=== PATIENT | female | born 1930 | race Asian ===

== ENCOUNTER 2017-07-01 13:04 | Inpatient (IN) | payer MEDICARE, OTHER ==
--- NOTE | 2017-07-01 13:59 | ED Physician Chart ---
ED Chief Complaint/HPI - Patient Information Date Seen:: 07/01/17 Time Seen:: 13:52 Chief Complaint:: Failure to thrive History of Present Illness:: 87 yo female with history of stroke and left hemiplagia, was brought from [facility] to ER for evaluation of failure to thrive and generalized weakness for several days. There was no trauma, fever, or vomiting. Allergies:: Allergies Allergy/AdvReac Type Severity Reaction Status Date / Time Sulfa (Sulfonamide Allergy Verified 07/01/17 13:27 Antibiotics) Vitals:: Vital Signs - 8 hr 07/01/17 13:27 Temp 98.7 F HR 89 RR 22 BP 116/68 O2 Sat % 97 ED Review of Systems - Review of Systems General/Constitutional: No fever, Weakness Skin: No bruising Head: No headache Eyes: No pain ENT: No nasal drainage Neck: No neck pain Cardio Vascular: No chest pain Pulmonary: SOB GI: No nausea, No vomiting Musculoskeletal: Back pain Neurological: Weakness ED Past Medical History - Past Medical History Past Medical History: CVA/TIA, Dyslipidemia, Arthritis, Other (anemia, lung ca, DVT, PE, stroke with left hemiplagia, dysphagia, low back pain) Social History: Non Smoker, No Alcohol, No Drug Use Psychiatricy History: Other (anxiety, impulse disorder) Family Medical History - Family Member Mother History Unknown: Yes ED Physical Exam - Physical Examination Other Gen/Cons comments:: drowsy, awaken to voice Head: Atraumatic Eyes: PERRL Skin: No ecchymosis ENMT: Nasal exam nl Neck: No nuchal rigidity Other Respiratory comments:: mild rhonchi Cardio Vascular: RRR, No murmur, gallop, rubs, NL S1 S2 GI: No tenderness/rebounding/guarding Other Extremities comments:: RUE 5/5, RLE 5/5, LUE 1/5, LLE 2/5 Other Neuro/Psych comments:: Follow commands ED Labs/Radiology/EKG Results - Radiology Results Results: CXR: No acute abnormality CT head: Right parietal encephalomalacia ED Assessment - Assessment General Assessment: UTI Leukocytosis Hypokalemia Left hemiplagia Assessment/Comments:: CBC, CMP, UA CXR, EKG CT head Levaquin IV NS 1L IV bolus KCL 40mEq po Admit to med surg ED Septic Shock - . Is Septic Shock (SBP<90, OR Lactate>4 mmol\L) present?: No - <6hrs of presentation: Vital Signs: Vital Signs - 8 hr 07/01/ 13:27 Temp 98.7 F HR 89 RR 22 BP 116/68 O2 Sat % 97 ED Reassessment (Disposition) - Reassessment Reassessment Condition:: Improved - Patient Disposition Discharge/Transfer:: Acute Care w/in this hosp Admitting Medical Physician:: Familia Landry ED Discharge Plan - Patient Disposition Admit/Discharge/Transfer: Acute Care w/in this hosp
[2017-07-01 14:18] LABS: MANUAL DIFF REQUIRED? YES; MEAN PLATELET VOLUME 7.1 fl
[2017-07-01 14:36] LABS: HEMATOCRIT 30.7 % (41.0-60); HEMOGLOBIN 10.1 gm/dL (12-16); MEAN CELL VOLUME 88.7 fl (81-100); MEAN CORPUSCULAR HEMOGLOBIN 29.3 pg (27.0-31.0); PLATELET COUNT 367 Th/cmm (150-400); RED BLOOD COUNT 3.46 Mil/cmm (3.80-5.20); RED CELL DISTRIBUTION WIDTH 15.7 % (11.5-20.0)
[2017-07-01 14:42] LABS: ALB/GLOB RATIO 0.9 (1.0-1.8); ALBUMIN 2.9 gm/dL (3.7-5.3); ALKALINE PHOSPHATASE 82 U/L (34-104); ANION GAP 11.4 (7.0-16.0); BILIRUBIN,TOTAL 0.4 mg/dL (0.3-1.0); BUN - UREA NITROGEN 19 mg/dL (7-25); CARBON DIOXIDE 25.2 mEq/L (21.0-31.0); CHLORIDE 109 mEq/L (98-107); CREATININE - SERUM 0.7 mg/dL (0.6-1.2); GLUCOSE 104 mg/dL (70-105); SGOT 16 U/L (13-39); SGPT/ALT 6 U/L (7-52); SODIUM SERUM 143 mEq/L (136-145); TOTAL PROTEIN,SERUM 6.2 gm/dL (6.0-8.3)
[2017-07-01 14:43] LABS: WHITE BLOOD COUNT 23.8 Th/cmm (4.8-10.8)
[2017-07-01 14:51] LABS: POTASSIUM SERUM 2.6 mEq/L (3.5-5.1)
[2017-07-01] MEDS ORDERED: Levofloxacin 500mg/100mL 500 MG/100 ML BAG IV ONE ×2 (15:02→15:18)
[2017-07-01] MEDS ORDERED: Sodium Chloride 0.9% 1,000 ML IV ONE (15:02)
[2017-07-01 15:17] LABS: BAND NEUTROPHILE 2 % (0-10); BASOPHIL 0 % (0-3); EOSINOPHIL 2 % (0-5); LYMPHOCYTE 20 % (20-50); MONOCYTE 5 % (2-10); NEUTROPHILS 71 % (40-80); TOTAL CELLS COUNTED 100
[2017-07-01 15:40] LABS: URINE MICROSCOPIC INDICATED? YES; URINE SOURCE RANDOM
[2017-07-01 16:46] LABS: URINE BILIRUBIN SMALL (NEGATIVE); URINE BLOOD SMALL (NEGATIVE); URINE GLUCOSE (UA) NEGATIVE (NEGATIVE); URINE KETONE 15 mg/dL (NEGATIVE); URINE LEUKOCYTE ESTERASE LARGE (NEGATIVE); URINE NITRATE POSITIVE (NEGATIVE); URINE PH 5.5 (4.6 - 8.0); URINE PROTEIN TRACE mg/dL (NEGATIVE); URINE UROBILINOGEN 0.2 E.U./dL (0.2 - 1.0)
[2017-07-01 16:50] LABS: URINE CLARITY CLOUDY (CLEAR); URINE COLOR YELLOW
[2017-07-01 16:53] LABS: URINE BACTERIA MANY /hpf (NONE SEEN); URINE EPITHELIAL CELLS FEW /lpf (FEW); URINE WBC >100 /hpf (0-5)
[2017-07-01] MEDS ORDERED: Potassium Chloride 20 mEq ER Tab PO ONE ×3 (17:02→22:30)
[2017-07-01] MEDS ORDERED: Potassium Chloride 20 mEq ER Tab PO PRN (22:08)
[2017-07-01] MEDS ORDERED: D5-0.9%NS 1,000 ML IV SCH (22:10)
[2017-07-01] MEDS ORDERED: Albuterol/Ipratropium Neb 3 ML AERS HHN PRN (22:14)
[2017-07-01] MEDS ORDERED: Morphine Sulfate 4 mg/mL 1mL Syr IVP PRN (22:20)
[2017-07-02] MEDS: Albuterol/Ipratropium Neb 3 ML AERS HHN SCH ×4 (00:26→19:14)
[2017-07-02] MEDS ORDERED: Piperacillin Sodium/Tazobact 2.25 gm Vial IV ONE ×2 (01:11→05:16)
[2017-07-02] MEDS: D5-0.9%NS 1,000 ML IV SCH ×2 (01:32→13:49)
[2017-07-02 04:03] VITALS: BP 103/62
[2017-07-02] MEDS ORDERED: Pneumococcal Vaccine 0.5 mL Vial IM ONE (04:17)
--- NOTE | 2017-07-02 05:03 | History and Physical ---
History of Present Illness - HPI Chief Complaint: Dehydration and poor appetite HPI: An 87-year-old female with past medical history of stage IV lung cancer and chronic respiratory failure present from mobile with the complaint of poor appetite and dehydration. I have seen the patient last couple of months at [place]. The patient was being followed at [facility] was previously undergoing chemotherapy for stage IV lung cancer. However, the patient gradually became weaker and continued to lose weight and the oncologist stated that the patient was unable to withstand therapy. At that point in time the patient was considered hospice appropriate in the [facility]. The patient's son, Phillip, refused to place his mother on hospice at that time and admitted to ignoring their telephone calls. I spoke to the son on several occasions about his mother's poor prognosis and her inability to withstand continue treatment for stage IV lung cancer, however, the patient's son would like to explore all continued options for treatment. The patient is to the point in time where she is not tolerating oral intake and she's become very weakened and is having difficulty speaking. I examined the [facility] early yesterday and at that time she was still able to make her own decisions and asked for hospice care. The patient's mentation continued to wax and wane during the day and the patient became altered and was unable to make her own decisions at that time. I explained to the patient's son , Phillip, but his mother is having difficulty eating and drinking, as a direct result of this she'll become very dehydrated and she will not get the nutrients she needs to continue to fight her cancer. At this point in time the patient's son does not want a G-tube placed, but he would like to speak to an oncologist and college and career counselor about continued treatment. Vital Signs: Last Vital Signs Temp 97.8 F 07/01/17 23:58 Pulse 83 07/02/17 00:26 Resp 18 07/02/17 00:26 BP 103/62 07/02/17 04:02 Pulse Ox 97 07/02/17 00:26 Past Medical History Cardiovascular: Report: CAD, HTN Pulmonary: Report: COPD, Other (Stage IV lung cancer) [employer]: Report: Peripheral neuropathy GI: Report: Constipation, GERD Psych: Report: Anxiety Musculoskeletal: Report: Low Back Pain Family Medical History - Family Member Mother History Unknown: Yes Social History Smoke: Quit Alcohol: None Drugs: None Lives: Alf Domestic Violence: Negative - Medications Home Medications: Home Medication Medication Instructions Recorded Type Acetaminophen [Tylenol] 325 mg PO Q6HR PRN 07/01/17 History Acetaminophen [Tylenol] 650 mg PO Q6HR PRN 07/01/17 History Albuterol/Ipratropium Neb [Duoneb 3 ml HHN Q6HR PRN 07/01/17 History Neb] Amino Acids/Protein Hydrolys 30 ml PO DAILY 07/01/17 History [Pro-Stat Sugar Free 887 ml] Ascorbate Calcium [Vitamin C] 500 mg PO DAILY 07/01/17 History Bisacodyl [Dulcolax 10 Mg Supp] 10 mg RC HS PRN 07/01/17 History Cyproheptadine HCl 4 mg PO BID 07/01/17 History Dextrose 5 % and 0.9 % NaCl 1,000 ml IV DAILY 07/01/17 History [Dextrose 5%-0.9% NaCl IV Soln] Ferrous Sulfate [Iron] 325 mg PO BID 07/01/17 History Fleet Enema [Fleet Enema] 118 ml RC DAILY PRN 07/01/17 History Fluticasone/Salmeterol [Advair 1 dsk IH BID 07/01/17 History Diskus 250/50] Folic Acid [Folate*] 1 mg PO DAILY 07/01/17 History Glutathione [Glutathione-l] 500 mg PO DAILY 07/01/17 History Hydrocodone/APAP 5mg/325mg [[place] 1 tab PO Q6H PRN 07/01/17 History 5mg/325mg] Lactulose 20 gm PO QID PRN 07/01/17 History Lidocaine 5% Patch [Lidoderm 5% 1 patch TP DAILY 07/01/17 History Patch] Lisinopril 20 mg PO DAILY 07/01/17 History Lorazepam [Ativan] 0.5 mg PO Q6H PRN 07/01/17 History Magnesium Hydroxide [Milk of 30 ml PO PRN PRN 07/01/17 History Magnesia] Multivitamin [Multiple Vitamins] 1 tab PO DAILY 07/01/17 History Ondansetron [Ondansetron Odt] 4 mg PO Q8H PRN 07/01/17 History Prochlorperazine Maleate 10 mg PO Q6H PRN 07/01/17 History [Compazine] Rivaroxaban [Xarelto] 10 mg PO BID 07/01/17 History - Allergies Allergies/Adverse Reactions: Allergies Allergy/AdvReac Type Severity Reaction Status Date / Time Sulfa (Sulfonamide Allergy Verified 07/01/17 13:27 Antibiotics) Review of Systems - Review of Systems Constitutional: Report: Weakness, Malaise, Other (decreased appetite) Eyes: Report: No Significant ENT: Report: No Significant Respiratory: Report: Shortness of Breath Cardiovascular: Report: Orthopnea Gastrointestinal: Report: Other (decreased appetite) Genitourinary: Report: No Significant Musculoskeletal: Report: Other (muscle weakness) Neurological: Report: Weakness Physical Exam - Physical Exam HEENT: Report: Ears Nose Throat within normal limits, Other (cachectic) Neck: Report: Within normal limits Cardiovascular Systems: Report: +s1/s2 noted, Regular, Rate and Rhythm Respiratory: Report: Other (decreased breath sounds bilaterally, decreased air movement) Abdomen: Report: Non-tender to palpation Back: Report: Other (bilateral lower extremity pain) Extremities: Report: No pedal edema was noted on inspection Skin: Report: Warm, Dry Neuro/Psych: Report: Other (AAO 2) - Assessment Assessment: Current Active Problems Problem Status Onset WEAKESS AND POOR ORAL INTAKE Acute Metabolic encephalopathy secondary to urinary tract infection Stage IV lung cancer Chronic respiratory failure Hypertension Generalized anxiety disorder Chronic pain syndrome Muscle weakness Unsteady gait Anemia of chronic illness - Plan Plan: Admit to telemetry. IV fluids and IV antibiotics. Pulmonology and oncology have been consulted. Abdominal oxygen. Bronchodilators. Pain control. Follow -up cultures. Bedrest.
[2017-07-02 05:49] LABS: % BASOPHILS 0.4 % (0.0-2.0); % EOSINOPHILS 2.9 % (0.0-5.0); % LYMPHOCYTES 12.3 % (20.0-50.0); % MONOCYTES 6.6 % (2.0-10.0); % NEUTROPHILS 77.8 % (40.0-80.0); EOSINOPHILE ABSOLUTE 0.4 Th/cmm (0.1-0.4); HEMATOCRIT 29.8 % (41.0-60); HEMOGLOBIN 9.7 gm/dL (12-16); LYMPHOCYTE ABSOLUTE 1.5 Th/cmm (1.5-3.0); MEAN CELL VOLUME 88.7 fl (81-100); MEAN CORPUSCULAR HGB CONC 32.7 pg (28.0-36.0); MEAN PLATELET VOLUME 7.1 fl; MONOCYTE ABSOLUTE 0.8 Th/cmm (0.3-1.0); NEUTROPHILE ABSOLUTE 9.6 Th/cmm (1.8-8.0); PLATELET COUNT 338 Th/cmm (150-400); RED BLOOD COUNT 3.36 Mil/cmm (3.80-5.20); RED CELL DISTRIBUTION WIDTH 16.1 % (11.5-20.0)
[2017-07-02 05:58] LABS: ANION GAP 9.2 (7.0-16.0); BUN - UREA NITROGEN 14 mg/dL (7-25); CALCIUM SERUM 8.4 mg/dL (8.6-10.3); CARBON DIOXIDE 26.6 mEq/L (21.0-31.0); CHLORIDE 113 mEq/L (98-107); CREATININE - SERUM 0.6 mg/dL (0.6-1.2); GLUCOSE 135 mg/dL (70-105); MAGNESIUM 1.7 mg/dL (1.9-2.7); PHOSPHOROUS 1.5 mg/dL (2.5-5.0); SODIUM SERUM 146 mEq/L (136-145)
[2017-07-02 06:08] LABS: POTASSIUM SERUM 2.8 mEq/L (3.5-5.1); WHITE BLOOD COUNT 12.3 Th/cmm (4.8-10.8)
[2017-07-02] MEDS: Potassium Chloride 20 mEq ER Tab PO SCH ×2 (07:01→13:41)
[2017-07-02] MEDS: Multivitamin Tab PO SCH (08:21)
[2017-07-02] MEDS: Ferrous Sulfate 325 MG TAB PO SCH ×2 (08:21→16:15)
[2017-07-02] MEDS ORDERED: SALMETEROL IH SCH (09:00)
[2017-07-02] MEDS ORDERED: Non-Formulary Item 1 EA (Amino Acids/Protein Hydrolys [Pro-Stat Sugar Free Liquid] 30 ML) PO SCH (09:00)
[2017-07-02] MEDS ORDERED: FLUTICASONE IH SCH (09:00)
[2017-07-02] MEDS ORDERED: GLUTATHIONE 500 MG PO SCH (09:00)
--- NOTE | 2017-07-02 09:01 | Diagnostic Imaging Report ---
CT scan of the brain without intravenous contrast HISTORY: Stroke, CVA Total DLP equals 558 CTDI equals 33.2 Axial sections were obtained from the base of the skull the vertex. There is marked enlargement of ventricular system along with marked enlargement of cerebral sulci and subarachnoid cisterns reflecting severe atrophy. There is extensive hypodensity throughout the supratentorial periventricular white matter regions. No mass effect. The findings may be associated with chronic small vessel ischemic disease. Somewhat more focal hypodensity and encephalomalacia with volume loss noted within the right parietal region. Changes may be related to an old infarct. No acute intracerebral hemorrhage. Again, no mass effect or shift of midline structures. No extra-axial masses or abnormal fluid collections. IMPRESSION: 1. No definite acute abnormalities 2. Severe cerebral atrophy 3. Extensive chronic white matter changes that may be associated with chronic small vessel ischemic disease 4. Somewhat more focal changes and encephalomalacia within the right parietal region that may be associated with an old infarct.
--- NOTE | 2017-07-02 09:03 | Diagnostic Imaging Report ---
Portable chest x-ray HISTORY: Shortness of breath The overall heart size is normal. Atherosclerotic calcination seen in the tortuous thoracic aorta. No acute focal pulmonary parenchymal processes. IMPRESSION: 1. No acute abnormalities 2. At the site of vascular changes 3. Evidence of calcified mediastinal lymph node with small calcified nodules in the right lower lobe of the lung consistent with old granulomatous disease.
[2017-07-02] MEDS: Cyproheptadine 4 mg Tab PO SCH ×2 (09:11→16:15)
--- NOTE | 2017-07-02 11:59 | Consultation ---
DATE OF CONSULTATION: 07/02/2017 REFERRING PHYSICIAN: Dr. Landry. REASON FOR CONSULTATION: Metastatic lung cancer. HISTORY OF PRESENT ILLNESS: The patient is an 87-year-old female who is known to have history of metastatic lung cancer, who was treated by another oncologist and now she is comfort care only. The patient was placed on hospice and then taken off of hospice by the family wish. She has failure to thrive and general weakness. Therefore, admitted to the hospital. MEDICATIONS: Reviewed including folic acid, ferrous sulfate, laxatives, Tylenol and albuterol. FAMILY HISTORY: Irrelevant. SOCIAL HISTORY: Former smoker. PAST MEDICAL HISTORY: COPD. PHYSICAL EXAMINATION: GENERAL: The patient is cachectic, frail, afebrile. VITAL SIGNS: Blood pressure is stable. HEENT: Atraumatic. NECK: No lymphadenopathy. CHEST: Poor inspiratory effort. ABDOMEN: Soft. No masses or organomegaly. EXTREMITIES: Wasted muscles. No edema. LAB WORK: Potassium 4.8. White count 12.3, hemoglobin 9.7, platelets 338. Chest x-ray was reviewed showing mediastinal lymphadenopathy and right lower lobe lung nodules. CT scan of the head, no acute changes. ASSESSMENT: 1. Advanced lung cancer, status post chemotherapy. 2. Poor functional status. The patient is not a candidate for any cancer therapy at this time, I discussed her current condition with the son, on the phone. I informed them that the goal of treatment is comfort care and maintaining dignity and he agreed. 3. Electrolyte abnormalities with low potassium and magnesium being corrected. I agree with current management with morphine as needed. I will obtain iron studies to decide whether the patient will need to continue iron. I also will start the patient on Lovenox prophylaxis. She is having a high risk for thrombosis because of the age and metastatic cancer and bedridden status. Thank you, Dr. Landry for the opportunity to participate in the care of this interesting case for you. JOB# [id number]
[2017-07-02] MEDS: Budesonide 0.5 Mg/2 mL Ud HHN SCH (19:14)
[2017-07-02 19:36] LABS: ANION GAP 9.8 (7.0-16.0); BUN - UREA NITROGEN 11 mg/dL (7-25); CALCIUM SERUM 8.5 mg/dL (8.6-10.3); CARBON DIOXIDE 24.4 mEq/L (21.0-31.0); CHLORIDE 115 mEq/L (98-107); CREATININE - SERUM 0.6 mg/dL (0.6-1.2); GLUCOSE 176 mg/dL (70-105); POTASSIUM SERUM 3.2 mEq/L (3.5-5.1); SODIUM SERUM 146 mEq/L (136-145)
[2017-07-02] MEDS ORDERED: Potassium Chloride 20 mEq ER Tab PO ONE (21:29)
[2017-07-03] MEDS: Morphine Sulfate 4 mg/mL 1mL Syr IVP PRN ×2 (01:36→20:18)
[2017-07-03] MEDS: Albuterol/Ipratropium Neb 3 ML AERS HHN SCH ×4 (01:42→18:29)
[2017-07-03] MEDS: D5-0.9%NS 1,000 ML IV SCH (05:56)
[2017-07-03 06:24] LABS: % BASOPHILS 0.1 % (0.0-2.0); % EOSINOPHILS 1.7 % (0.0-5.0); % LYMPHOCYTES 12.3 % (20.0-50.0); % MONOCYTES 7.6 % (2.0-10.0); % NEUTROPHILS 78.3 % (40.0-80.0); EOSINOPHILE ABSOLUTE 0.2 Th/cmm (0.1-0.4); HEMATOCRIT 27.5 % (41.0-60); HEMOGLOBIN 8.9 gm/dL (12-16); LYMPHOCYTE ABSOLUTE 1.2 Th/cmm (1.5-3.0); MEAN CELL VOLUME 88.6 fl (81-100); MEAN CORPUSCULAR HEMOGLOBIN 28.8 pg (27.0-31.0); MEAN CORPUSCULAR HGB CONC 32.5 pg (28.0-36.0); MEAN PLATELET VOLUME 7.1 fl; MONOCYTE ABSOLUTE 0.8 Th/cmm (0.3-1.0); NEUTROPHILE ABSOLUTE 7.7 Th/cmm (1.8-8.0); PLATELET COUNT 339 Th/cmm (150-400); WHITE BLOOD COUNT 9.9 Th/cmm (4.8-10.8)
[2017-07-03 06:45] LABS: BUN - UREA NITROGEN 8 mg/dL (7-25); CALCIUM SERUM 8.7 mg/dL (8.6-10.3); CARBON DIOXIDE 24.9 mEq/L (21.0-31.0); CHLORIDE 119 mEq/L (98-107); CREATININE - SERUM 0.6 mg/dL (0.6-1.2); GLUCOSE 133 mg/dL (70-105); POTASSIUM SERUM 3.9 mEq/L (3.5-5.1); SODIUM SERUM 149 mEq/L (136-145)
--- NOTE | 2017-07-03 06:59 | Consultation ---
DATE OF CONSULTATION: 07/02/2017 REFERRING PHYSICIAN: Dr. Landry. Thank you very much for this consultation. HISTORY OF PRESENT ILLNESS: This is an 87-year-old female with history of lung cancer who was admitted with some cough, congestion, and shortness of breath. The patient was unable to give any much history. She says she is a smoker since age 16 and quit years ago. She cannot quantify the amount of years of smoking. The patient is in halfway, having poor appetite and the patient has been followed at [facility] for had a chemo, status post chemo to stage IV lung cancer. The patient apparently was deemed not strong enough to tolerate any more treatment. Apparently hospice option was given to the family, but they declined at this time. The patient states she is feeling a little bit better, but not eating as much. PAST MEDICAL HISTORY: As above. SOCIAL HISTORY: As above. PHYSICAL EXAMINATION: GENERAL: Awake, alert, not in acute distress. VITAL SIGNS: Temperature 98.0, pulse 82, respirations 19, blood pressure 105/57, saturation 100% on 2 liters oxygen. HEENT: Atraumatic, normocephalic. Pupils are equal to light and accommodation. Ears, nose and throat normal. NECK: Supple. No JVD. CHEST: There are a few rhonchi. No wheezing. HEART: Regular rate and rhythm. No murmurs. ABDOMEN: Soft. EXTREMITIES: No edema. IMAGING DATA: The chest x-ray showed some fullness in the left upper, left hilar area, otherwise no obvious infiltrate. LABORATORY DATA: WBC is 12.3, hemoglobin 9.7, hematocrit 29.8, platelets is 338. Sodium 146, potassium 2.8, BUN is 40, creatinine 0.6. IMPRESSION: 1. This is an 87-year-old female with acute bronchitis. 2. Chronic obstructive pulmonary disease exacerbation. 3. Urinary tract infection. 4. Lung cancer, advanced. PLAN: Supportive care with nebulizer treatment, IV antibiotics and IV hydration. Add Pulmicort nebulizer and nutritional support and comes to the cancer, looks like end-stage, probably considered to be DNR and if she is not eating much, OG-tube is desired, at one point, need to consider hospice care. We will follow patient with you. JOB# [id number]
[2017-07-03] MEDS: Budesonide 0.5 Mg/2 mL Ud HHN SCH ×2 (07:07→18:30)
[2017-07-03] MEDS: Ferrous Sulfate 325 MG TAB PO SCH ×2 (08:16→16:31)
[2017-07-03] MEDS: Multivitamin Tab PO SCH (08:16)
[2017-07-03] MEDS: Cyproheptadine 4 mg Tab PO SCH ×2 (08:17→16:31)
[2017-07-03] MEDS ORDERED: Probiotic Screen MC PRN (08:45)
[2017-07-03] MEDS: Lactobacillus Rhamnosus GG 15 Billion CFU CAP.SPRINK PO SCH (08:59)
--- NOTE | 2017-07-03 10:01 | General Progress Note ---
Subjective - Review of Systems Service Date: 07/03/17 Events since last encounter: The patient is on antibiotics for asp pna. Continue respiratory support for resp failure. Oncology evaluated the patient and stated that she is not a candidate for treatment of the stage 4 lung ca. Comfort care is preferred, however family has refused hospice in the past Subjective: The patient is resting comfortably in bed. Does not appear to be in any acute pain or distress. Denies chest pain, coughin, abd pain, dysuria or falls Objective - Results Result Diagrams: 07/03/17 05:48 07/03/17 05:48 Recent Labs: Laboratory Last Values WBC 9.9 Th/cmm (4.8-10.8) 07/03/17 05:48 RBC 3.10 Mil/cmm (3.80-5.20) L 07/03/17 05:48 Hgb 8.9 gm/dL (12-16) L 07/03/17 05:48 Hct 27.5 % (41.0-60) L 07/03/17 05:48 MCV 88.6 fl (81-100) 07/03/17 05:48 MCH 28.8 pg (27.0-31.0) 07/03/17 05:48 MCHC Differential 32.5 pg (28.0-36.0) 07/03/17 05:48 RDW 16.0 % (11.5-20.0) 07/03/17 05:48 Plt Count 339 Th/cmm (150-400) 07/03/17 05:48 MPV 7.1 fl 07/03/17 05:48 Neutrophils % 78.3 % (40.0-80.0) 07/03/17 05:48 Band Neutrophils % 2 % (0-10) 07/01/17 14:10 Lymphocytes % 12.3 % (20.0-50.0) L 07/03/17 05:48 Monocytes % 7.6 % (2.0-10.0) 07/03/17 05:48 Eosinophils % 1.7 % (0.0-5.0) 07/03/17 05:48 Basophils % 0.1 % (0.0-2.0) 07/03/17 05:48 Neutrophils (Manual) 71 % (40-80) 07/01/17 14:10 Lymphocytes 20 % (20-50) 07/01/17 14:10 Monocytes 5 % (2-10) 07/01/17 14:10 Eosinophils 2 % (0-5) 07/01/17 14:10 Basophils 0 % (0-3) 07/01/17 14:10 Sodium 149 mEq/L (136-145) H 07/03/17 05:48 Potassium 3.9 mEq/L (3.5-5.1) 07/03/17 05:48 Chloride 119 mEq/L (98-107) H 07/03/17 05:48 Carbon Dioxide 24.9 mEq/L (21.0-31.0) 07/03/17 05:48 Anion Gap 9.0 (7.0-16.0) 07/03/17 05:48 BUN 8 mg/dL (7-25) 07/03/17 05:48 Creatinine 0.6 mg/dL (0.6-1.2) 07/03/17 05:48 Est GFR ( Amer) TNP 07/03/17 05:48 Est GFR (Non-Af Amer) TNP 07/03/17 05:48 BUN/Creatinine Ratio 13.3 07/03/17 05:48 Glucose 133 mg/dL (70-105) H 07/03/17 05:48 Whole Bld Lactic Acid 1.88 mmol/L (0.60-1.99) 07/01/17 17:00 Calcium 8.7 mg/dL (8.6-10.3) 07/03/17 05:48 Phosphorus 1.5 mg/dL (2.5-5.0) L 07/02/17 05:20 Magnesium 1.7 mg/dL (1.9-2.7) L 07/02/17 05:20 Total Bilirubin 0.4 mg/dL (0.3-1.0) 07/01/17 14:10 AST 16 U/L (13-39) 07/01/17 14:10 ALT 6 U/L (7-52) L 07/01/17 14:10 Alkaline Phosphatase 82 U/L (34-104) 07/01/17 14:10 Troponin I 0.13 ng/mL (0.01-0.05) H* D 07/02/17 13:15 B-Natriuretic Peptide 215.0 pg/mL (5.0-100.0) H 07/01/17 14:10 Total Protein 6.2 gm/dL (6.0-8.3) 07/01/17 14:10 Albumin 2.9 gm/dL (3.7-5.3) L 07/01/17 14:10 Globulin 3.3 gm/dL 07/01/17 14:10 Albumin/Globulin Ratio 0.9 (1.0-1.8) L 07/01/17 14:10 TSH 1.40 uIU/ml (0.34-5.60) 07/01/17 14:10 Urine Source RANDOM 07/01/17 15:15 Urine Color YELLOW 07/01/17 15:15 Urine Clarity CLOUDY (CLEAR) H 07/01/17 15:15 Urine pH 5.5 (4.6 - 8.0) 07/01/17 15:15 Ur Specific [place] >= 1.030 (1.005-1.030) 07/01/17 15:15 Urine Protein TRACE mg/dL (NEGATIVE) 07/01/17 15:15 Urine Glucose (UA) NEGATIVE mg/dL (NEGATIVE) 07/01/17 15:15 Urine Ketones 15 mg/dL (NEGATIVE) H 07/01/17 15:15 Urine Blood SMALL (NEGATIVE) H 07/01/17 15:15 Urine Nitrate POSITIVE (NEGATIVE) H 07/01/17 15:15 Urine Bilirubin SMALL (NEGATIVE) H 07/01/17 15:15 Urine Urobilinogen 0.2 E.U./dL (0.2 - 1.0) 07/01/17 15:15 Ur Leukocyte Esterase LARGE (NEGATIVE) H 07/01/17 15:15 Urine RBC 2-5 /hpf (0-5) 07/01/17 15:15 Urine WBC >100 /hpf (0-5) H 07/01/17 15:15 Ur Epithelial Cells FEW /lpf (FEW) 07/01/17 15:15 Urine Bacteria MANY /hpf (NONE SEEN) H 07/01/17 15:15 - Physical Exam Vitals and I&O: Vital Signs Temp 98 F 07/03/17 08:00 Pulse 90 07/03/17 08:00 Resp 18 07/03/17 08:00 BP 129/74 07/03/17 08:00 Pulse Ox 92 04/15/18 08:00 Intake & Output 07/02/17 07/03/17 07/03/17 18:59 06:59 18:59 Intake Total 2365.986 5939 Balance 2508.233 8671 Weight (lbs) 54.93 kg Intake: Intake, IV Amount 7112.370 7347 D5-0.9%Ns 1,000 ml @ 80 011.899 2706 mls/hr IV .[id number] [facility] Rx #:[id number] Piperacillin Sodium/ 50 100 Tazobact 2.25 gm In Sodium Chloride 0.9% 50 ml @ 100 mls/hr IV Q6HR [facility] Rx#:[id number] Other: # Voids 2 Weight Source Bedscale Active Medications: Current Medications Acetaminophen (Tylenol) 650 mg PO Q4H PRN PRN Reason: Fever > 101 Stop: 08/30/17 22:06 Acetaminophen/Hydrocodone Bitart ([place] 10 Mg/325 Mg) 1 tab PO Q6H PRN PRN Reason: mod pain Stop: 08/30/17 22:07 Albuterol/Ipratropium (Duoneb Neb) 3 ml HHN Q4HRT PRN PRN Reason: Wheezing Stop: 08/30/17 22:13 Albuterol/Ipratropium (Duoneb Neb) 3 ml HHN Q6HRT [facility] Stop: 08/31/17 00:59 Last Admin: 07/03/17 07:07 Dose: 3 ml Ascorbic Acid (Vitamin C) 500 mg PO DAILY [facility] Stop: 08/31/17 08:59 Last Admin: 07/03/17 08:16 Dose: 500 mg Bisacodyl (Dulcolax 10 Mg Supp) 10 mg RC HS PRN PRN Reason: BOWEL CARE MANAGEMENT Stop: 08/30/17 22:18 Budesonide (Pulmicort) 0.5 mg HHN BIDRT [facility] Stop: 08/31/17 18:59 Last Admin: 07/03/17 07:07 Dose: 0.5 mg Cyproheptadine HCl (Periactin) 4 mg PO BID [facility] Stop: 08/31/17 08:59 Last Admin: 07/03/17 08:17 Dose: 4 mg Docusate Sodium (Colace) 100 mg PO BID [facility] Stop: 08/31/17 08:59 Last Admin: 07/03/17 08:16 Dose: 100 mg Ferrous Sulfate (Iron) 325 mg PO BID [facility] Stop: 08/31/17 08:59 Last Admin: 07/03/17 08:16 Dose: 325 mg Folic Acid (Folate) 1 mg PO DAILY [facility] Stop: 08/31/17 08:59 Last Admin: 07/03/17 08:16 Dose: 1 mg Dextrose/Sodium Chloride (D5-0.9%Ns) 1,000 mls @ 100 mls/hr IV .Q10H [facility] Stop: 08/30/17 22:09 Piperacillin Sod/Tazobactam (Sod 2.25 gm/ Sodium Chloride) 50 mls @ 100 mls/hr IV Q6HR [facility] Stop: 08/31/17 00:00 Last Admin: 07/03/17 05:50 Dose: 100 mls/hr Dextrose/Sodium Chloride (D5-0.9%Ns) 1,000 mls @ 80 mls/hr IV .[id number] [facility] Stop: 08/30/17 22:19 Last Admin: 07/03/17 05:56 Dose: 80 mls/hr Lactobacillus Rhamnosus (Culturelle 15b) 1 each PO DAILY [facility] Stop: 09/01/17 08:59 Last Admin: 07/03/17 08:59 Dose: 1 each Lactulose (Cephulac) 20 gm PO QID PRN PRN Reason: Constipation Stop: 08/30/17 22:18 Miscellaneous (Probiotic Screen) 1 ea MC PRN PRN PRN Reason: PROTOCOL Stop: 09/01/17 08:44 Morphine Sulfate (Morphine) 2 mg IVP Q4H PRN PRN Reason: moderate pain Stop: 08/30/17 22:07 Last Admin: 07/03/17 01:36 Dose: 2 mg Morphine Sulfate (Morphine) 2 mg IVP Q4HR PRN PRN Reason: PAIN Stop: 08/30/17 22:19 Multivitamins/Vitamin C (Theragran) 1 tab PO DAILY [facility] Stop: 08/31/17 08:59 Last Admin: 07/03/17 08:16 Dose: 1 tab Mupirocin (Bactroban Oint) 1 appl NS BID [facility] Stop: 07/07/17 09:01 Last Admin: 04/15/18 08:17 Dose: 1 appl Rivaroxaban (Xarelto) 10 mg PO BID [facility] Stop: 08/31/17 08:59 Last Admin: 07/03/17 08:16 Dose: 10 mg General: Alert, Cooperative, Mild distress, Other (cachexic) HEENT: Atraumatic, PERRLA Neck: Supple Cardiovascular: Regular rate, Normal S1, Normal S2 Lungs: Other (decreased breath sounds b/l) Abdomen: Bowel sounds Neurological: Other (ms str 4/5) Assessment/Plan - Problem List Patient Problems: All Active Problems WEAKESS AND POOR ORAL INTAKE (Acute) - Assessment Assessment: Current Active Problems Problem Status Onset WEAKESS AND POOR ORAL INTAKE Acute Metabolic encephalopathy secondary to urinary tract infection Stage IV lung cancer Chronic respiratory failure Hypertension Generalized anxiety disorder Chronic pain syndrome Muscle weakness Unsteady gait Anemia of chronic illness - Plan Plan: Admit to telemetry. IV fluids and IV antibiotics. Pulmonology and oncology have been consulted. Abdominal oxygen. Bronchodilators. Pain control. Follow -up cultures. Bedrest. Oncology spoke with the son and informed him that his mother is too weak for continued cancer treatment and recommends hospice
[2017-07-03] MEDS: D5-0.45NS 1,000 ML IV SCH (15:07)
[2017-07-04] MEDS: Albuterol/Ipratropium Neb 3 ML AERS HHN SCH ×4 (00:52→18:58)
--- NOTE | 2017-07-04 02:25 | Consultation ---
DATE OF CONSULTATION: 07/03/2017 HISTORY OF PRESENT ILLNESS: This 87-year-old female was seen and examined at the courtesy of Dr. Landry and not much history available from the patient. Information was obtained from the chart. This patient has multiple problems. I was called to see the patient because the patient did have slightly elevated troponin level. The patient does have respiratory failure, pneumonia, leukocytosis, lactic acidosis, also has metastatic lung cancer, hypokalemia, old CVA, history of DVT and history of PE in the past. The patient denies any history of chest pains. No hemoptysis, no dizziness, no seizures. History of CVA in the past. No history of abdominal pain. No history of nausea, vomiting. No history of hematemesis. No history of melena. No history of bleeding per rectum. PAST MEDICAL HISTORY: Usual childhood diseases. No history of rheumatic fever, no history of scarlet fever. Other past history includes as above, metastatic lung cancer, history of DVT, history of PE, old CVA. FAMILY HISTORY: Not significant. SOCIAL HISTORY: Denies smoking or drinking. PHYSICAL EXAMINATION: VITAL SIGNS: Heart rate was 104, blood pressure was 124/69, temperature 99.6, respirations 19, O2 saturation 96%. SKIN: Normal. HEAD: Normocephalic. EYES: Conjunctivae were pink. There is no icterus in the eyes. Pupils reacting to light. NECK: There was no increase in jugular venous distention, no thyromegaly, no lymphadenopathy. Carotids equal on both sides. CHEST: Bilaterally symmetrical, moved well with respiration. Respiratory movements equal on both sides. Trachea is central. There is note to percussion. Breath sound, few rales and rhonchi. CARDIOVASCULAR SYSTEM: PMI not well localized. There is no positional thrill. No parasternal heave. S1 normal, S2 physiologic. No definite S3, no rub. ABDOMEN: Soft, no tenderness, no rigidity, no guarding, no organomegaly. Bowel sound normal. There is no calf tenderness. Peripheral pulses diminished. LABORATORY DATA: EKG revealed sinus rhythm, generalized low voltage occasional PVC. Chest x-ray did not show any acute pathology. Troponin level was 0.14, then came down to 0.13. WBC count was 23.8, hemoglobin 10.1, hematocrit 30.7, platelet count was 367. Lactic acid was 2.43. Sodium 143, potassium 2.6, chloride 109, CO2 of 25.2, BUN 19, creatinine 0.7, glucose 104. Albumin was 2.9, alkaline phosphate is 82. BNP was 215. Urine showed more than 100 wbc's, leukocyte esterase was large. TSH 1.40. IMPRESSION: Elevated troponin level, rule out any possibility of non-Q-wave myocardial infarction or elevated troponin level could be of noncardiac origin, respiratory failure, pneumonia, metastatic lung cancer, leukocytosis, hypokalemia, lactic acidosis, old cerebrovascular accident, status post deep venous thrombosis, status post pulmonary embolism. BNP slightly elevated, but clinically the patient is not in congestive heart failure at the moment, so is to continue present management to correct hypokalemia. We will repeat EKG in a.m. We will also get echocardiogram to evaluate left ventricular function and valvular structure. Repeat troponin in a.m., lipid profile, and TSH. Further recommendation will be made depending on the rest of tests available. The patient is already on Xarelto. JOB# [id number]
[2017-07-04] MEDS: D5-0.45NS 1,000 ML IV SCH ×2 (05:52→22:27)
[2017-07-04 06:11] LABS: % BASOPHILS 0.2 % (0.0-2.0); % EOSINOPHILS 0.9 % (0.0-5.0); % LYMPHOCYTES 8.3 % (20.0-50.0); % MONOCYTES 6.3 % (2.0-10.0); % NEUTROPHILS 84.3 % (40.0-80.0); EOSINOPHILE ABSOLUTE 0.1 Th/cmm (0.1-0.4); HEMATOCRIT 27.3 % (41.0-60); HEMOGLOBIN 8.9 gm/dL (12-16); LYMPHOCYTE ABSOLUTE 1.1 Th/cmm (1.5-3.0); MEAN CELL VOLUME 88.4 fl (81-100); MEAN CORPUSCULAR HEMOGLOBIN 28.9 pg (27.0-31.0); MEAN CORPUSCULAR HGB CONC 32.7 pg (28.0-36.0); MEAN PLATELET VOLUME 7.1 fl; MONOCYTE ABSOLUTE 0.9 Th/cmm (0.3-1.0); NEUTROPHILE ABSOLUTE 11.6 Th/cmm (1.8-8.0); PLATELET COUNT 358 Th/cmm (150-400); RED BLOOD COUNT 3.09 Mil/cmm (3.80-5.20); RED CELL DISTRIBUTION WIDTH 16.2 % (11.5-20.0)
[2017-07-04 06:14] LABS: WHITE BLOOD COUNT 13.7 Th/cmm (4.8-10.8)
[2017-07-04 07:06] LABS: ANION GAP 9.8 (7.0-16.0); BUN - UREA NITROGEN 8 mg/dL (7-25); CALCIUM SERUM 8.7 mg/dL (8.6-10.3); CARBON DIOXIDE 24.9 mEq/L (21.0-31.0); CHLORIDE 112 mEq/L (98-107); CHOLESTEROL 114 mg/dL (<200); CREATININE - SERUM 0.6 mg/dL (0.6-1.2); GLUCOSE 133 mg/dL (70-105); HDL -HIGH DENSITY LIPOPROTEIN 31 mg/dL (23-92); POTASSIUM SERUM 3.7 mEq/L (3.5-5.1); SODIUM SERUM 143 mEq/L (136-145); TRIGLYCERIDES 107 mg/dL (<150)
[2017-07-04] MEDS: Budesonide 0.5 Mg/2 mL Ud HHN SCH ×2 (07:47→18:59)
[2017-07-04] MEDS: Cyproheptadine 4 mg Tab PO SCH ×2 (09:07→17:28)
[2017-07-04] MEDS: Ferrous Sulfate 325 MG TAB PO SCH ×2 (09:07→17:28)
[2017-07-04] MEDS: Lactobacillus Rhamnosus GG 15 Billion CFU CAP.SPRINK PO SCH (09:07)
[2017-07-04] MEDS: Multivitamin Tab PO SCH (09:07)
--- NOTE | 2017-07-04 09:08 | General Progress Note ---
Subjective - Review of Systems Service Date: 07/04/17 Subjective: Pt seen and eval. In bed. Very weak. On pureed diet. Needs full ADL support. Cannot hold up her head or feed herself. Incontinent. Seen by jayson, bren, and heme onc, all of whom agree with hospice care. Dr. Montanez discussed poor prog with son, and he agrees to comfort care/hospice. No fevers or chills. WBC elevated. No falls. Objective - Results Result Diagrams: 07/04/17 05:50 07/04/17 05:50 Recent Labs: Laboratory Last Values WBC 13.7 Th/cmm (4.8-10.8) H 07/04/17 05:50 RBC 3.09 Mil/cmm (3.80-5.20) L 07/04/17 05:50 Hgb 8.9 gm/dL (12-16) L 07/04/17 05:50 Hct 27.3 % (41.0-60) L 07/04/17 05:50 MCV 88.4 fl (81-100) 07/04/17 05:50 MCH 28.9 pg (27.0-31.0) 07/04/17 05:50 MCHC Differential 32.7 pg (28.0-36.0) 07/04/17 05:50 RDW 16.2 % (11.5-20.0) 07/04/17 05:50 Plt Count 358 Th/cmm (150-400) 07/04/17 05:50 MPV 7.1 fl 07/04/17 05:50 Neutrophils % 84.3 % (40.0-80.0) H 07/04/17 05:50 Band Neutrophils % 2 % (0-10) 07/01/17 14:10 Lymphocytes % 8.3 % (20.0-50.0) L 07/04/17 05:50 Monocytes % 6.3 % (2.0-10.0) 07/04/17 05:50 Eosinophils % 0.9 % (0.0-5.0) 07/04/17 05:50 Basophils % 0.2 % (0.0-2.0) 07/04/17 05:50 Neutrophils (Manual) 71 % (40-80) 07/01/17 14:10 Lymphocytes 20 % (20-50) 07/01/17 14:10 Monocytes 5 % (2-10) 07/01/17 14:10 Eosinophils 2 % (0-5) 07/01/17 14:10 Basophils 0 % (0-3) 07/01/17 14:10 Sodium 143 mEq/L (136-145) 07/04/17 05:50 Potassium 3.7 mEq/L (3.5-5.1) 07/04/17 05:50 Chloride 112 mEq/L (98-107) H 07/04/17 05:50 Carbon Dioxide 24.9 mEq/L (21.0-31.0) 07/04/17 05:50 Anion Gap 9.8 (7.0-16.0) 07/04/17 05:50 BUN 8 mg/dL (7-25) 07/04/17 05:50 Creatinine 0.6 mg/dL (0.6-1.2) 07/04/17 05:50 Est GFR ( Amer) TNP 07/04/17 05:50 Est GFR (Non-Af Amer) TNP 07/04/17 05:50 BUN/Creatinine Ratio 13.3 07/04/17 05:50 Glucose 133 mg/dL (70-105) H 07/04/17 05:50 Whole Bld Lactic Acid 1.88 mmol/L (0.60-1.99) 07/01/17 17:00 Calcium 8.7 mg/dL (8.6-10.3) 07/04/17 05:50 Phosphorus 1.5 mg/dL (2.5-5.0) L 07/02/17 05:20 Magnesium 1.7 mg/dL (1.9-2.7) L 07/02/17 05:20 Total Bilirubin 0.4 mg/dL (0.3-1.0) 07/01/17 14:10 AST 16 U/L (13-39) 07/01/17 14:10 ALT 6 U/L (7-52) L 07/01/17 14:10 Alkaline Phosphatase 82 U/L (34-104) 07/01/17 14:10 Troponin I 0.09 ng/mL (0.01-0.05) H* D 07/04/17 05:50 B-Natriuretic Peptide 215.0 pg/mL (5.0-100.0) H 07/01/17 14:10 Total Protein 6.2 gm/dL (6.0-8.3) 07/01/17 14:10 Albumin 2.9 gm/dL (3.7-5.3) L 07/01/17 14:10 Globulin 3.3 gm/dL 07/01/17 14:10 Albumin/Globulin Ratio 0.9 (1.0-1.8) L 07/01/17 14:10 Triglycerides 107 mg/dL (<150) 07/04/17 05:50 Cholesterol 114 mg/dL (<200) 07/04/17 05:50 LDL Cholesterol Direct 59 mg/dL (75-193) L 07/04/17 05:50 HDL Cholesterol 31 mg/dL (23-92) 07/04/17 05:50 TSH 1.46 uIU/ml (0.34-5.60) 07/04/17 05:50 Urine Source RANDOM 07/01/17 15:15 Urine Color YELLOW 07/01/17 15:15 Urine Clarity CLOUDY (CLEAR) H 07/01/17 15:15 Urine pH 5.5 (4.6 - 8.0) 07/01/17 15:15 Ur Specific [place] >= 1.030 (1.005-1.030) 07/01/17 15:15 Urine Protein TRACE mg/dL (NEGATIVE) 07/01/17 15:15 Urine Glucose (UA) NEGATIVE mg/dL (NEGATIVE) 07/01/17 15:15 Urine Ketones 15 mg/dL (NEGATIVE) H 07/01/17 15:15 Urine Blood SMALL (NEGATIVE) H 07/01/17 15:15 Urine Nitrate POSITIVE (NEGATIVE) H 07/01/17 15:15 Urine Bilirubin SMALL (NEGATIVE) H 07/01/17 15:15 Urine Urobilinogen 0.2 E.U./dL (0.2 - 1.0) 07/01/17 15:15 Ur Leukocyte Esterase LARGE (NEGATIVE) H 07/01/17 15:15 Urine RBC 2-5 /hpf (0-5) 07/01/17 15:15 Urine WBC >100 /hpf (0-5) H 07/01/17 15:15 Ur Epithelial Cells FEW /lpf (FEW) 07/01/17 15:15 Urine Bacteria MANY /hpf (NONE SEEN) H 07/01/17 15:15 - Physical Exam Vitals and I&O: Vital Signs Temp 97.7 F 07/04/17 08:12 Pulse 97 07/04/17 08:12 Resp 20 07/04/17 08:12 BP 117/61 07/04/17 08:12 Pulse Ox 99 07/04/17 08:12 Intake & Output 07/03/17 07/04/17 07/04/17 18:59 06:59 18:59 Intake Total 100 1050 Balance 100 1050 Weight (lbs) 46.266 kg Intake: Intake, IV Amount 100 1050 D5-0.45NS 1,000 ml @ 75 1000 mls/hr IV .[id number] [facility] Rx #:[id number] Piperacillin Sodium/ 100 50 Tazobact 2.25 gm In Sodium Chloride 0.9% 50 ml @ 100 mls/hr IV Q6HR [facility] Rx#:[id number] Other: # Voids 2 # Bowel Movements 0 Weight Source Bedscale Active Medications: Current Medications Acetaminophen (Tylenol) 650 mg PO Q4H PRN PRN Reason: Fever > 101 Stop: 08/30/17 22:06 Acetaminophen/Hydrocodone Bitart ([place] 10 Mg/325 Mg) 1 tab PO Q6H PRN PRN Reason: mod pain Stop: 08/30/17 22:07 Albuterol/Ipratropium (Duoneb Neb) 3 ml HHN Q4HRT PRN PRN Reason: Wheezing Stop: 08/30/17 22:13 Albuterol/Ipratropium (Duoneb Neb) 3 ml HHN Q6HRT [facility] Stop: 08/31/17 00:59 Last Admin: 07/04/17 07:47 Dose: 3 ml Ascorbic Acid (Vitamin C) 500 mg PO DAILY [facility] Stop: 08/31/17 08:59 Last Admin: 07/03/17 08:16 Dose: 500 mg Bisacodyl (Dulcolax 10 Mg Supp) 10 mg RC HS PRN PRN Reason: BOWEL CARE MANAGEMENT Stop: 08/30/17 22:18 Budesonide (Pulmicort) 0.5 mg HHN BIDRT [facility] Stop: 08/31/17 18:59 Last Admin: 07/04/17 07:47 Dose: 0.5 mg Cyproheptadine HCl (Periactin) 4 mg PO BID [facility] Stop: 08/31/17 08:59 Last Admin: 07/03/17 16:31 Dose: 4 mg Docusate Sodium (Colace) 100 mg PO BID [facility] Stop: 08/31/17 08:59 Last Admin: 07/03/17 16:31 Dose: 100 mg Ferrous Sulfate (Iron) 325 mg PO BID [facility] Stop: 08/31/17 08:59 Last Admin: 07/03/17 16:31 Dose: 325 mg Folic Acid (Folate) 1 mg PO DAILY [facility] Stop: 08/31/17 08:59 Last Admin: 07/03/17 08:16 Dose: 1 mg Piperacillin Sod/Tazobactam (Sod 2.25 gm/ Sodium Chloride) 50 mls @ 100 mls/hr IV Q6HR [facility] Stop: 08/31/17 00:00 Last Admin: 07/04/17 05:34 Dose: 100 mls/hr Dextrose/Sodium Chloride (D5-0.45ns) 1,000 mls @ 75 mls/hr IV .[id number] [facility] Stop: 09/01/17 11:59 Last Admin: 07/04/17 05:52 Dose: 75 mls/hr Lactobacillus Rhamnosus (Culturelle 15b) 1 each PO DAILY [facility] Stop: 09/01/17 08:59 Last Admin: 07/03/17 08:59 Dose: 1 each Lactulose (Cephulac) 20 gm PO QID PRN PRN Reason: Constipation Stop: 08/30/17 22:18 Miscellaneous (Probiotic Screen) 1 ea MC PRN PRN PRN Reason: PROTOCOL Stop: 09/01/17 08:44 Morphine Sulfate (Morphine) 2 mg IVP Q4H PRN PRN Reason: moderate pain Stop: 08/30/17 22:07 Last Admin: 07/03/17 20:18 Dose: 2 mg Morphine Sulfate (Morphine) 2 mg IVP Q4HR PRN PRN Reason: PAIN Stop: 08/30/17 22:19 Multivitamins/Vitamin C (Theragran) 1 tab PO DAILY [facility] Stop: 08/31/17 08:59 Last Admin: 07/03/17 08:16 Dose: 1 tab Mupirocin (Bactroban Oint) 1 appl NS BID [facility] Stop: 07/07/17 09:01 Last Admin: 07/03/17 16:31 Dose: 1 appl Rivaroxaban (Xarelto) 10 mg PO BID [facility] Stop: 08/31/17 08:59 Last Admin: 07/03/17 16:31 Dose: 10 mg General: Cooperative, Mild distress, Other (cachextic, very weak) HEENT: Atraumatic, PERRLA Neck: Supple Cardiovascular: Regular rate, Normal S1, Normal S2 Lungs: Other (decreased breath sounds b/l) Abdomen: Bowel sounds Neurological: Other (ms str 4/5) Assessment/Plan - Problem List Patient Problems: All Active Problems WEAKESS AND POOR ORAL INTAKE (Acute) - Assessment Assessment: Fail to thrive Stage 4 lung ca Sepsis due to UTI ME Ch pain syn Anemia of ch ill Hypernatremia Hypokalemia Type 2 LA - Plan Plan: Pt holds a poor progonosis. Cardio, Pulm, and Heme Onc seeing pt, all of whom agree with comfort care/ hospice. On IV Zosyn. Elec corrected. Hospice eval. Nutritional Asmnt/Malnutr-PDOC - Dietary Evaluation Malnutrition Findings (Please click <Entered> for more info): Nutritional Asmnt/Malnutrition Start: 07/03/17 13: 22 Text: Status: Active Freq: Document 07/03/17 13:22 URBAN (Rec: 07/03/17 13:35 MMKENY ELLER- FN) Nutritional Asmnt/Malnutrition Patient General Information Nutritional Screening Consult Diagnosis UTI, Failure to thrive, hypokalemia Pertinent Medical Hx/Surgical Hx CAD, HTN, COPD, Stage 4 lung cancer, peripheral neuropathy, constipation, GERD, anxiety, low back pain Subjective Information Consult received for Failure to Thrive. Current Diet Order/ Nutrition Support Regular diet, pureed with mechaical soft Patient / S.O Not Indicated Pertinent Medications Vitamin C, dulcolax, D5-0.45 NS @ 75 ml/hr, colace, iron, folate, lactulose, theragran Pertinent Labs (07/02) P 1.5, Mg 1.7, albumin 2.9 Nutritional Hx/Data Height 1.6 m Height (Calculated Centimeters) 160.0 Current Weight (lbs) 54.885 kg Weight (Calculated Kilograms) 54.9 Weight (Calculated Grams) 05664.7 [place] Body Weight 115 % [place] Body Weight 105 Body Mass Index (BMI) 21.4 Recent Weight Change No Weight Status Approriate GI Symptoms GI Symptoms None Last BM Prior to admission Difficult in: None Food Allergies No Cultural/Ethnic/Episcopal Belief None indicated Skin Integrity/Comment: Pradeep Cook Current %PO Poor (25-49%) Estimated Nutritional Goals BEE in Kcals: Using Current wt Calories/Kcals/Kg 55kg CBW (25-30kcal/kg) Kcals Calculated 4462-9365 kcal/day Protein: Using Current wt Protein g/k-1.2 gm/kg Protein Calculated 55-65 gm/day Fluid: ml 9285-1325 ml/day (1 ml/kcal) Nutritional Problem 2. Problem Problem Inadequate oral intake related to Etiology poor appetite aeb Signs/Symptoms: meeting <75% of estimated nutrient needs 1. Problem Problem Altered nutrition related lab values related to Etiology electrolyte imbalance aeb Signs/Symptoms: P 1.5, Mg 1.7 Intervention/Recommendation Comments 1. Continue pureed diet as tolerated by patient. 2. RN To assist with feedings and encourage oral intake. 3. Consider adding Boost plus between meals to optimize calorie and protein intake. Expected Outcomes/Goals Expected Outcomes/Goals Oral intake to meet >75% of needs, weight stable, nutrition labs WNL F/U MR 07/06-
--- NOTE | 2017-07-04 09:36 | Diagnostic Imaging Report ---
CHEST X-RAY: AP view INDICATION: Shortness of breath COMPARISON: 07/01/2017 FINDINGS: Exam is limited due to patient rotation. There is mild prominence of the left hilar region. No pleural effusions. Heart size normal. Atherosclerosis is noted. IMPRESSION: Mild prominence of the left hilar region. This may be accentuated by rotation, however, underlying mass lesion cannot be excluded. Short-term follow-up CT with IV contrast would provide additional detail and assessment Atherosclerotic vascular disease.
--- NOTE | 2017-07-04 12:15 | General Progress Note ---
Subjective - Review of Systems Service Date: 07/04/17 Objective - Results Result Diagrams: 07/04/17 05:50 07/04/17 05:50 Recent Labs: Laboratory Last Values WBC 13.7 Th/cmm (4.8-10.8) H 07/04/17 05:50 RBC 3.09 Mil/cmm (3.80-5.20) L 07/04/17 05:50 Hgb 8.9 gm/dL (12-16) L 07/04/17 05:50 Hct 27.3 % (41.0-60) L 07/04/17 05:50 MCV 88.4 fl (81-100) 07/04/17 05:50 MCH 28.9 pg (27.0-31.0) 07/04/17 05:50 MCHC Differential 32.7 pg (28.0-36.0) 07/04/17 05:50 RDW 16.2 % (11.5-20.0) 07/04/17 05:50 Plt Count 358 Th/cmm (150-400) 07/04/17 05:50 MPV 7.1 fl 07/04/17 05:50 Neutrophils % 84.3 % (40.0-80.0) H 07/04/17 05:50 Band Neutrophils % 2 % (0-10) 07/01/17 14:10 Lymphocytes % 8.3 % (20.0-50.0) L 07/04/17 05:50 Monocytes % 6.3 % (2.0-10.0) 07/04/17 05:50 Eosinophils % 0.9 % (0.0-5.0) 07/04/17 05:50 Basophils % 0.2 % (0.0-2.0) 07/04/17 05:50 Neutrophils (Manual) 71 % (40-80) 07/01/17 14:10 Lymphocytes 20 % (20-50) 07/01/17 14:10 Monocytes 5 % (2-10) 07/01/17 14:10 Eosinophils 2 % (0-5) 07/01/17 14:10 Basophils 0 % (0-3) 07/01/17 14:10 Sodium 143 mEq/L (136-145) 07/04/17 05:50 Potassium 3.7 mEq/L (3.5-5.1) 07/04/17 05:50 Chloride 112 mEq/L (98-107) H 07/04/17 05:50 Carbon Dioxide 24.9 mEq/L (21.0-31.0) 07/04/17 05:50 Anion Gap 9.8 (7.0-16.0) 07/04/17 05:50 BUN 8 mg/dL (7-25) 07/04/17 05:50 Creatinine 0.6 mg/dL (0.6-1.2) 07/04/17 05:50 Est GFR ( Amer) TNP 07/04/17 05:50 Est GFR (Non-Af Amer) TNP 07/04/17 05:50 BUN/Creatinine Ratio 13.3 07/04/17 05:50 Glucose 133 mg/dL (70-105) H 07/04/17 05:50 Whole Bld Lactic Acid 1.88 mmol/L (0.60-1.99) 07/01/17 17:00 Calcium 8.7 mg/dL (8.6-10.3) 07/04/17 05:50 Phosphorus 1.5 mg/dL (2.5-5.0) L 07/02/17 05:20 Magnesium 1.7 mg/dL (1.9-2.7) L 07/02/17 05:20 Total Bilirubin 0.4 mg/dL (0.3-1.0) 07/01/17 14:10 AST 16 U/L (13-39) 07/01/17 14:10 ALT 6 U/L (7-52) L 07/01/17 14:10 Alkaline Phosphatase 82 U/L (34-104) 07/01/17 14:10 Troponin I 0.09 ng/mL (0.01-0.05) H* D 07/04/17 05:50 B-Natriuretic Peptide 215.0 pg/mL (5.0-100.0) H 07/01/17 14:10 Total Protein 6.2 gm/dL (6.0-8.3) 07/01/17 14:10 Albumin 2.9 gm/dL (3.7-5.3) L 07/01/17 14:10 Globulin 3.3 gm/dL 07/01/17 14:10 Albumin/Globulin Ratio 0.9 (1.0-1.8) L 07/01/17 14:10 Triglycerides 107 mg/dL (<150) 07/04/17 05:50 Cholesterol 114 mg/dL (<200) 07/04/17 05:50 LDL Cholesterol Direct 59 mg/dL (75-193) L 07/04/17 05:50 HDL Cholesterol 31 mg/dL (23-92) 07/04/17 05:50 TSH 1.46 uIU/ml (0.34-5.60) 07/04/17 05:50 Urine Source RANDOM 07/01/17 15:15 Urine Color YELLOW 07/01/17 15:15 Urine Clarity CLOUDY (CLEAR) H 07/01/17 15:15 Urine pH 5.5 (4.6 - 8.0) 07/01/17 15:15 Ur Specific [place] >= 1.030 (1.005-1.030) 07/01/17 15:15 Urine Protein TRACE mg/dL (NEGATIVE) 07/01/17 15:15 Urine Glucose (UA) NEGATIVE mg/dL (NEGATIVE) 07/01/17 15:15 Urine Ketones 15 mg/dL (NEGATIVE) H 07/01/17 15:15 Urine Blood SMALL (NEGATIVE) H 07/01/17 15:15 Urine Nitrate POSITIVE (NEGATIVE) H 07/01/17 15:15 Urine Bilirubin SMALL (NEGATIVE) H 07/01/17 15:15 Urine Urobilinogen 0.2 E.U./dL (0.2 - 1.0) 07/01/17 15:15 Ur Leukocyte Esterase LARGE (NEGATIVE) H 07/01/17 15:15 Urine RBC 2-5 /hpf (0-5) 07/01/17 15:15 Urine WBC >100 /hpf (0-5) H 07/01/17 15:15 Ur Epithelial Cells FEW /lpf (FEW) 07/01/17 15:15 Urine Bacteria MANY /hpf (NONE SEEN) H 07/01/17 15:15 - Physical Exam Vitals and I&O: Vital Signs Temp 97.7 F 07/04/17 08:12 Pulse 97 07/04/17 08:12 Resp 20 07/04/17 08:12 BP 117/61 07/04/17 08:12 Pulse Ox 99 07/04/17 08:12 Intake & Output 07/03/17 07/04/17 07/04/17 18:59 06:59 18:59 Intake Total 100 1050 Balance 100 1050 Weight (lbs) 46.266 kg 46.266 kg Intake: Intake, IV Amount 100 1050 D5-0.45NS 1,000 ml @ 75 1000 mls/hr IV .[id number] [facility] Rx #:[id number] Piperacillin Sodium/ 100 50 Tazobact 2.25 gm In Sodium Chloride 0.9% 50 ml @ 100 mls/hr IV Q6HR [facility] Rx#:[id number] Other: # Voids 2 # Bowel Movements 0 Weight Source Bedscale Bedscale Active Medications: Current Medications Acetaminophen (Tylenol) 650 mg PO Q4H PRN PRN Reason: Fever > 101 Stop: 08/30/17 22:06 Acetaminophen/Hydrocodone Bitart ([place] 10 Mg/325 Mg) 1 tab PO Q6H PRN PRN Reason: mod pain Stop: 08/30/17 22:07 Albuterol/Ipratropium (Duoneb Neb) 3 ml HHN Q4HRT PRN PRN Reason: Wheezing Stop: 08/30/17 22:13 Albuterol/Ipratropium (Duoneb Neb) 3 ml HHN Q6HRT [facility] Stop: 08/31/17 00:59 Last Admin: 07/04/17 07:47 Dose: 3 ml Ascorbic Acid (Vitamin C) 500 mg PO DAILY [facility] Stop: 08/31/17 08:59 Last Admin: 07/04/17 09:07 Dose: 500 mg Bisacodyl (Dulcolax 10 Mg Supp) 10 mg RC HS PRN PRN Reason: BOWEL CARE MANAGEMENT Stop: 08/30/17 22:18 Budesonide (Pulmicort) 0.5 mg HHN BIDRT [facility] Stop: 08/31/17 18:59 Last Admin: 07/04/17 07:47 Dose: 0.5 mg Cyproheptadine HCl (Periactin) 4 mg PO BID [facility] Stop: 08/31/17 08:59 Last Admin: 07/04/17 09:07 Dose: 4 mg Docusate Sodium (Colace) 100 mg PO BID [facility] Stop: 08/31/17 08:59 Last Admin: 07/04/17 09:07 Dose: 100 mg Ferrous Sulfate (Iron) 325 mg PO BID [facility] Stop: 08/31/17 08:59 Last Admin: 07/04/17 09:07 Dose: 325 mg Folic Acid (Folate) 1 mg PO DAILY [facility] Stop: 08/31/17 08:59 Last Admin: 07/04/17 09:07 Dose: 1 mg Piperacillin Sod/Tazobactam (Sod 2.25 gm/ Sodium Chloride) 50 mls @ 100 mls/hr IV Q6HR [facility] Stop: 08/31/17 00:00 Last Admin: 07/04/17 05:34 Dose: 100 mls/hr Dextrose/Sodium Chloride (D5-0.45ns) 1,000 mls @ 75 mls/hr IV .[id number] [facility] Stop: 09/01/17 11:59 Last Admin: 07/04/17 05:52 Dose: 75 mls/hr Lactobacillus Rhamnosus (Culturelle 15b) 1 each PO DAILY [facility] Stop: 09/01/17 08:59 Last Admin: 07/04/17 09:07 Dose: 1 each Lactulose (Cephulac) 20 gm PO QID PRN PRN Reason: Constipation Stop: 08/30/17 22:18 Miscellaneous (Probiotic Screen) 1 ea MC PRN PRN PRN Reason: PROTOCOL Stop: 09/01/17 08:44 Morphine Sulfate (Morphine) 2 mg IVP Q4H PRN PRN Reason: moderate pain Stop: 08/30/17 22:07 Last Admin: 07/03/17 20:18 Dose: 2 mg Morphine Sulfate (Morphine) 2 mg IVP Q4HR PRN PRN Reason: PAIN Stop: 08/30/17 22:19 Multivitamins/Vitamin C (Theragran) 1 tab PO DAILY [facility] Stop: 08/31/17 08:59 Last Admin: 07/04/17 09:07 Dose: 1 tab Mupirocin (Bactroban Oint) 1 appl NS BID [facility] Stop: 07/07/17 09:01 Last Admin: 07/04/17 09:07 Dose: 1 appl Rivaroxaban (Xarelto) 10 mg PO BID [facility] Stop: 08/31/17 08:59 Last Admin: 07/04/17 09:07 Dose: 10 mg General: Cooperative, Mild distress, Other (cachextic, very weak) HEENT: Atraumatic, PERRLA Neck: Supple Cardiovascular: Regular rate, Normal S1, Normal S2 Lungs: Other (decreased breath sounds b/l) Abdomen: Bowel sounds Neurological: Other (ms str 4/5) Assessment/Plan - Problem List Patient Problems: All Active Problems WEAKESS AND POOR ORAL INTAKE (Acute) - Assessment Assessment: * Advanced metastatic cancer * poor functional status * Anemia likely of chronic disease follow iron studies continue anticoagulation Nutritional Asmnt/Malnutr-PDOC - Dietary Evaluation Malnutrition Findings (Please click <Entered> for more info): Nutritional Asmnt/Malnutrition Start: 07/03/17 13: 22 Text: Status: Active Freq: Document 07/03/17 13:22 MMULN (Rec: 07/03/17 13:35 MMULHERJas ELLER FN) Nutritional Asmnt/Malnutrition Patient General Information Nutritional Screening Consult Diagnosis UTI, Failure to thrive, hypokalemia Pertinent Medical Hx/Surgical Hx CAD, HTN, COPD, Stage 4 lung cancer, peripheral neuropathy, constipation, GERD, anxiety, low back pain Subjective Information Consult received for Failure to Thrive. Current Diet Order/ Nutrition Support Regular diet, pureed with mechaical soft Patient / S.O Not Indicated Pertinent Medications Vitamin C, dulcolax, D5-0.45 NS @ 75 ml/hr, colace, iron, folate, lactulose, theragran Pertinent Labs (07/02) P 1.5, Mg 1.7, albumin 2.9 Nutritional Hx/Data Height 1.6 m Height (Calculated Centimeters) 160.0 Current Weight (lbs) 54.885 kg Weight (Calculated Kilograms) 54.9 Weight (Calculated Grams) 07260.7 [place] Body Weight 115 % [place] Body Weight 105 Body Mass Index (BMI) 21.4 Recent Weight Change No Weight Status Approriate GI Symptoms GI Symptoms None Last BM Prior to admission Difficult in: None Food Allergies No Cultural/Ethnic/Sikhism Belief None indicated Skin Integrity/Comment: Pradeep Cook Current %PO Poor (25-49%) Estimated Nutritional Goals BEE in Kcals: Using Current wt Calories/Kcals/Kg 55kg CBW (25-30kcal/kg) Kcals Calculated 1955-4317 kcal/day Protein: Using Current wt Protein g/k-1.2 gm/kg Protein Calculated 55-65 gm/day Fluid: ml 6353-9440 ml/day (1 ml/kcal) Nutritional Problem 2. Problem Problem Inadequate oral intake related to Etiology poor appetite aeb Signs/Symptoms: meeting <75% of estimated nutrient needs 1. Problem Problem Altered nutrition related lab values related to Etiology electrolyte imbalance aeb Signs/Symptoms: P 1.5, Mg 1.7 Intervention/Recommendation Comments 1. Continue pureed diet as tolerated by patient. 2. RN To assist with feedings and encourage oral intake. 3. Consider adding Boost plus between meals to optimize calorie and protein intake. Expected Outcomes/Goals Expected Outcomes/Goals Oral intake to meet >75% of needs, weight stable, nutrition labs WNL F/U MR 07/06-
[2017-07-05] MEDS: Albuterol/Ipratropium Neb 3 ML AERS HHN SCH ×4 (01:56→18:45)
[2017-07-05] MEDS ORDERED: Diltiazem 5 mg/mL 5mL Vial IVP ONE ×2 (04:31→05:21)
[2017-07-05 06:23] LABS: BASOPHILE ABSOLUTE 0.2 Th/cumm (0-0.2); EOSINOPHILE ABSOLUTE 0.2 Th/cmm (0.1-0.4); HEMATOCRIT 27.7 % (41.0-60); HEMOGLOBIN 9.2 gm/dL (12-16); LYMPHOCYTE ABSOLUTE 1.9 Th/cmm (1.5-3.0); MANUAL DIFF REQUIRED? YES; MEAN CELL VOLUME 88.5 fl (81-100); MEAN CORPUSCULAR HEMOGLOBIN 29.3 pg (27.0-31.0); MEAN CORPUSCULAR HGB CONC 33.1 pg (28.0-36.0); MONOCYTE ABSOLUTE 1.3 Th/cmm (0.3-1.0); NEUTROPHILE ABSOLUTE 21.8 Th/cmm (1.8-8.0); PLATELET COUNT 377 Th/cmm (150-400); RED BLOOD COUNT 3.12 Mil/cmm (3.80-5.20); RED CELL DISTRIBUTION WIDTH 16.1 % (11.5-20.0)
[2017-07-05 06:36] LABS: ANION GAP 10.4 (7.0-16.0); BUN - UREA NITROGEN 11 mg/dL (7-25); CALCIUM SERUM 8.7 mg/dL (8.6-10.3); CARBON DIOXIDE 24.2 mEq/L (21.0-31.0); CHLORIDE 112 mEq/L (98-107); CREATININE - SERUM 0.8 mg/dL (0.6-1.2); GLUCOSE 146 mg/dL (70-105); POTASSIUM SERUM 3.6 mEq/L (3.5-5.1); SODIUM SERUM 143 mEq/L (136-145)
[2017-07-05 06:46] LABS: WHITE BLOOD COUNT 25.4 Th/cmm (4.8-10.8)
--- NOTE | 2017-07-05 07:02 | General Progress Note ---
Subjective - Review of Systems Service Date: 07/05/17 Subjective: Pt seen and eval. In bed. Very weak. On pureed diet. Needs full ADL support. Cannot hold up her head or feed herself. Incontinent. Seen by jayson, bren, and heme onc, all of whom agree with hospice care. Dr. Montanez discussed poor prog with son. No fevers or chills. WBC elevated. No falls. Pt went into A fib last night. Now in ICU per cardio, on Dig. Objective - Results Result Diagrams: 07/05/17 06:05 07/05/17 06:05 Recent Labs: Laboratory Last Values WBC 25.4 Th/cmm (4.8-10.8) H* 07/05/17 06:05 RBC 3.12 Mil/cmm (3.80-5.20) L 07/05/17 06:05 Hgb 9.2 gm/dL (12-16) L 07/05/17 06:05 Hct 27.7 % (41.0-60) L 07/05/17 06:05 MCV 88.5 fl (81-100) 07/05/17 06:05 MCH 29.3 pg (27.0-31.0) 07/05/17 06:05 MCHC Differential 33.1 pg (28.0-36.0) 07/05/17 06:05 RDW 16.1 % (11.5-20.0) 07/05/17 06:05 Plt Count 377 Th/cmm (150-400) 07/05/17 06:05 MPV 7.0 fl 07/05/17 06:05 Neutrophils % 86.0 % (40.0-80.0) H 07/05/17 06:05 Band Neutrophils % 2 % (0-10) 07/01/17 14:10 Lymphocytes % 7.5 % (20.0-50.0) L 07/05/17 06:05 Monocytes % 5.0 % (2.0-10.0) 07/05/17 06:05 Eosinophils % 0.8 % (0.0-5.0) 07/05/17 06:05 Basophils % 0.7 % (0.0-2.0) 07/05/17 06:05 Neutrophils (Manual) 71 % (40-80) 07/01/17 14:10 Lymphocytes 20 % (20-50) 07/01/17 14:10 Monocytes 5 % (2-10) 07/01/17 14:10 Eosinophils 2 % (0-5) 07/01/17 14:10 Basophils 0 % (0-3) 07/01/17 14:10 Sodium 143 mEq/L (136-145) 07/05/17 06:05 Potassium 3.6 mEq/L (3.5-5.1) 07/05/17 06:05 Chloride 112 mEq/L (98-107) H 07/05/17 06:05 Carbon Dioxide 24.2 mEq/L (21.0-31.0) 07/05/17 06:05 Anion Gap 10.4 (7.0-16.0) 07/05/17 06:05 BUN 11 mg/dL (7-25) 07/05/17 06:05 Creatinine 0.8 mg/dL (0.6-1.2) 07/05/17 06:05 Est GFR ( Amer) TNP 07/05/17 06:05 Est GFR (Non-Af Amer) TNP 07/05/17 06:05 BUN/Creatinine Ratio 13.8 07/05/17 06:05 Glucose 146 mg/dL (70-105) H 07/05/17 06:05 Whole Bld Lactic Acid 1.88 mmol/L (0.60-1.99) 07/01/17 17:00 Calcium 8.7 mg/dL (8.6-10.3) 07/05/17 06:05 Phosphorus 1.5 mg/dL (2.5-5.0) L 07/02/17 05:20 Magnesium 1.7 mg/dL (1.9-2.7) L 07/02/17 05:20 Total Bilirubin 0.4 mg/dL (0.3-1.0) 07/01/17 14:10 AST 16 U/L (13-39) 07/01/17 14:10 ALT 6 U/L (7-52) L 07/01/17 14:10 Alkaline Phosphatase 82 U/L (34-104) 07/01/17 14:10 Troponin I 0.09 ng/mL (0.01-0.05) H* D 07/04/17 05:50 B-Natriuretic Peptide 215.0 pg/mL (5.0-100.0) H 07/01/17 14:10 Total Protein 6.2 gm/dL (6.0-8.3) 07/01/17 14:10 Albumin 2.9 gm/dL (3.7-5.3) L 07/01/17 14:10 Globulin 3.3 gm/dL 07/01/17 14:10 Albumin/Globulin Ratio 0.9 (1.0-1.8) L 07/01/17 14:10 Triglycerides 107 mg/dL (<150) 07/04/17 05:50 Cholesterol 114 mg/dL (<200) 07/04/17 05:50 LDL Cholesterol Direct 59 mg/dL (75-193) L 07/04/17 05:50 HDL Cholesterol 31 mg/dL (23-92) 07/04/17 05:50 TSH 1.46 uIU/ml (0.34-5.60) 07/04/17 05:50 Urine Source RANDOM 07/01/17 15:15 Urine Color YELLOW 07/01/17 15:15 Urine Clarity CLOUDY (CLEAR) H 07/01/17 15:15 Urine pH 5.5 (4.6 - 8.0) 07/01/17 15:15 Ur Specific [place] >= 1.030 (1.005-1.030) 07/01/17 15:15 Urine Protein TRACE mg/dL (NEGATIVE) 07/01/17 15:15 Urine Glucose (UA) NEGATIVE mg/dL (NEGATIVE) 07/01/17 15:15 Urine Ketones 15 mg/dL (NEGATIVE) H 07/01/17 15:15 Urine Blood SMALL (NEGATIVE) H 07/01/17 15:15 Urine Nitrate POSITIVE (NEGATIVE) H 07/01/17 15:15 Urine Bilirubin SMALL (NEGATIVE) H 07/01/17 15:15 Urine Urobilinogen 0.2 E.U./dL (0.2 - 1.0) 07/01/17 15:15 Ur Leukocyte Esterase LARGE (NEGATIVE) H 07/01/17 15:15 Urine RBC 2-5 /hpf (0-5) 07/01/17 15:15 Urine WBC >100 /hpf (0-5) H 07/01/17 15:15 Ur Epithelial Cells FEW /lpf (FEW) 07/01/17 15:15 Urine Bacteria MANY /hpf (NONE SEEN) H 07/01/17 15:15 - Physical Exam Vitals and I&O: Vital Signs Temp 99.0 F 07/05/17 04:00 Pulse 155 07/05/17 06:43 Resp 32 07/05/17 06:43 BP 92/52 07/05/17 06:43 Pulse Ox 97 07/05/17 06:43 Intake & Output 07/04/17 07/04/17 07/05/17 06:59 18:59 06:59 Intake Total 1100 50 1100 Balance 1100 50 1100 Weight (lbs) 46.266 kg 46.266 kg 46.266 kg Intake: Intake, IV Amount 1100 50 1100 D5-0.45NS 1,000 ml @ 75 1000 1000 mls/hr IV .[id number] [facility] Rx #:[id number] Piperacillin Sodium/ 100 50 100 Tazobact 2.25 gm In Sodium Chloride 0.9% 50 ml @ 100 mls/hr IV Q6HR [facility] Rx#:[id number] Other: # Voids 2 2 # Bowel Movements 0 0 Weight Source Bedscale Bedscale Bedscale Active Medications: Current Medications Acetaminophen (Tylenol) 650 mg PO Q4H PRN PRN Reason: Fever > 101 Stop: 08/30/17 22:06 Last Admin: 07/05/17 00:38 Dose: 650 mg Acetaminophen/Hydrocodone Bitart ([place] 10 Mg/325 Mg) 1 tab PO Q6H PRN PRN Reason: mod pain Stop: 08/30/17 22:07 Albuterol/Ipratropium (Duoneb Neb) 3 ml HHN Q4HRT PRN PRN Reason: Wheezing Stop: 08/30/17 22:13 Albuterol/Ipratropium (Duoneb Neb) 3 ml HHN Q6HRT [facility] Stop: 08/31/17 00:59 Last Admin: 07/05/17 01:56 Dose: 3 ml Ascorbic Acid (Vitamin C) 500 mg PO DAILY [facility] Stop: 08/31/17 08:59 Last Admin: 07/04/17 09:07 Dose: 500 mg Bisacodyl (Dulcolax 10 Mg Supp) 10 mg RC HS PRN PRN Reason: BOWEL CARE MANAGEMENT Stop: 06/12/18 22:18 Budesonide (Pulmicort) 0.5 mg HHN BIDRT [facility] Stop: 08/31/17 18:59 Last Admin: 07/04/17 18:59 Dose: 0.5 mg Cyproheptadine HCl (Periactin) 4 mg PO BID [facility] Stop: 08/31/17 08:59 Last Admin: 07/04/17 17:28 Dose: 4 mg Docusate Sodium (Colace) 100 mg PO BID [facility] Stop: 08/31/17 08:59 Last Admin: 07/04/17 17:28 Dose: 100 mg Ferrous Sulfate (Iron) 325 mg PO BID [facility] Stop: 08/31/17 08:59 Last Admin: 07/04/17 17:28 Dose: 325 mg Folic Acid (Folate) 1 mg PO DAILY [facility] Stop: 08/31/17 08:59 Last Admin: 07/04/17 09:07 Dose: 1 mg Piperacillin Sod/Tazobactam (Sod 2.25 gm/ Sodium Chloride) 50 mls @ 100 mls/hr IV Q6HR [facility] Stop: 08/31/17 00:00 Last Admin: 07/05/17 06:45 Dose: 100 mls/hr Dextrose/Sodium Chloride (D5-0.45ns) 1,000 mls @ 75 mls/hr IV .[id number] [facility] Stop: 09/01/17 11:59 Last Admin: 07/04/17 22:27 Dose: 75 mls/hr Lactobacillus Rhamnosus (Culturelle 15b) 1 each PO DAILY [facility] Stop: 09/01/17 08:59 Last Admin: 07/04/17 09:07 Dose: 1 each Lactulose (Cephulac) 20 gm PO QID PRN PRN Reason: Constipation Stop: 08/30/17 22:18 Miscellaneous (Probiotic Screen) 1 ea MC PRN PRN PRN Reason: PROTOCOL Stop: 09/01/17 08:44 Morphine Sulfate (Morphine) 2 mg IVP Q4H PRN PRN Reason: moderate pain Stop: 08/30/17 22:07 Last Admin: 07/03/17 20:18 Dose: 2 mg Morphine Sulfate (Morphine) 2 mg IVP Q4HR PRN PRN Reason: PAIN Stop: 08/30/17 22:19 Multivitamins/Vitamin C (Theragran) 1 tab PO DAILY [facility] Stop: 08/31/17 08:59 Last Admin: 07/04/17 09:07 Dose: 1 tab Mupirocin (Bactroban Oint) 1 appl NS BID [facility] Stop: 07/07/17 09:01 Last Admin: 07/04/17 17:29 Dose: 1 appl Rivaroxaban (Xarelto) 10 mg PO DAILY [facility] Stop: 09/03/17 08:59 General: Mild distress, Other (cachextic, very weak) HEENT: Atraumatic, PERRLA Neck: Supple Cardiovascular: Other (in A fib) Lungs: Other (decreased breath sounds b/l) Abdomen: Bowel sounds Neurological: Other (ms str 4/5) Assessment/Plan - Problem List Patient Problems: All Active Problems WEAKESS AND POOR ORAL INTAKE (Acute) - Assessment Assessment: Fail to thrive Stage 4 lung ca Sepsis due to UTI ME Ch pain syn Anemia of ch ill Hypernatremia Hypokalemia Type 2 LA A fib - Plan Plan: Pt holds a poor progonosis. I spoke with the Son at length. Explained the poor prognosis. Son says he wants everything done. He wants to take her to 'another hospital.' Cardio, Pulm, and Heme Onc seeing pt, all of whom agree with comfort care/ hospice. On IV Zosyn. Elec corrected. On Dig, in ICU. Nutritional Asmnt/Malnutr-PDOC - Dietary Evaluation Malnutrition Findings (Please click <Entered> for more info): Nutritional Asmnt/Malnutrition Start: 07/03/17 13: 22 Text: Status: Active Freq: Document 07/03/17 13:22 URBAN (Rec: 07/03/17 13:35 MMULJENN ELLER- FN) Nutritional Asmnt/Malnutrition Patient General Information Nutritional Screening Consult Diagnosis UTI, Failure to thrive, hypokalemia Pertinent Medical Hx/Surgical Hx CAD, HTN, COPD, Stage 4 lung cancer, peripheral neuropathy, constipation, GERD, anxiety, low back pain Subjective Information Consult received for Failure to Thrive. Current Diet Order/ Nutrition Support Regular diet, pureed with mechaical soft Patient / S.O Not Indicated Pertinent Medications Vitamin C, dulcolax, D5-0.45 NS @ 75 ml/hr, colace, iron, folate, lactulose, theragran Pertinent Labs (4/14) P 1.5, Mg 1.7, albumin 2.9 Nutritional Hx/Data Height 1.6 m Height (Calculated Centimeters) 160.0 Current Weight (lbs) 54.885 kg Weight (Calculated Kilograms) 54.9 Weight (Calculated Grams) 49989.7 [place] Body Weight 115 % [place] Body Weight 105 Body Mass Index (BMI) 21.4 Recent Weight Change No Weight Status Approriate GI Symptoms GI Symptoms None Last BM Prior to admission Difficult in: None Food Allergies No Cultural/Ethnic/Adventism Belief None indicated Skin Integrity/Comment: Pradeep 15 Current %PO Poor (25-49%) Estimated Nutritional Goals BEE in Kcals: Using Current wt Calories/Kcals/Kg 55kg CBW (25-30kcal/kg) Kcals Calculated 5260-2396 kcal/day Protein: Using Current wt Protein g/k-1.2 gm/kg Protein Calculated 55-65 gm/day Fluid: ml 4271-1372 ml/day (1 ml/kcal) Nutritional Problem 2. Problem Problem Inadequate oral intake related to Etiology poor appetite aeb Signs/Symptoms: meeting <75% of estimated nutrient needs 1. Problem Problem Altered nutrition related lab values related to Etiology electrolyte imbalance aeb Signs/Symptoms: P 1.5, Mg 1.7 Intervention/Recommendation Comments 1. Continue pureed diet as tolerated by patient. 2. RN To assist with feedings and encourage oral intake. 3. Consider adding Boost plus between meals to optimize calorie and protein intake. Expected Outcomes/Goals Expected Outcomes/Goals Oral intake to meet >75% of needs, weight stable, nutrition labs WNL F/U MR
[2017-07-05 07:24] LABS: ALB/GLOB RATIO 0.9 (1.0-1.8); ALBUMIN 2.6 gm/dL (3.7-5.3); ALKALINE PHOSPHATASE 66 U/L (34-104); BILIRUBIN,TOTAL 0.5 mg/dL (0.3-1.0); SGOT 16 U/L (13-39); SGPT/ALT 8 U/L (7-52); TOTAL PROTEIN,SERUM 5.6 gm/dL (6.0-8.3)
[2017-07-05] MEDS: Budesonide 0.5 Mg/2 mL Ud HHN SCH ×2 (07:26→18:45)
[2017-07-05 07:45] LABS: TOTAL CELLS COUNTED 100
[2017-07-05 07:46] LABS: BAND NEUTROPHILE 4 % (0-10); EOSINOPHIL 1 % (0-5); LYMPHOCYTE 14 % (20-50); MONOCYTE 2 % (2-10); NEUTROPHILS 79 % (40-80)
--- NOTE | 2017-07-05 08:41 | Diagnostic Imaging Report ---
CHEST X-RAY: AP view INDICATION: Lung cancer, pneumonia COMPARISON: 07/04/2017 FINDINGS: Prominent left hilar region is noted probably related to underlying mass. Heart size is normal. Atherosclerosis is noted. IMPRESSION: Prominent left hilum most likely secondary to underlying mass lesion. Reported history is lung cancer. Please correlate clinically. If necessary, a follow-up CT of the chest with IV contrast may be obtained.
[2017-07-05] MEDS: Ferrous Sulfate 325 MG TAB PO SCH ×2 (09:00→17:16)
[2017-07-05] MEDS: Lactobacillus Rhamnosus GG 15 Billion CFU CAP.SPRINK PO SCH (09:00)
[2017-07-05] MEDS ORDERED: Midazolam 1mg/ml 2 ml vial IV ONE ×2 (09:30→09:32)
[2017-07-05 10:42] LABS: IRON LC 21; TIBC (LC) 131; UIBC 110
[2017-07-05] MEDS ORDERED: Diatrizoate Meglumine/Diatri 30 mL Sol PO ONE (10:48)
--- NOTE | 2017-07-05 11:15 | Diagnostic Imaging Report ---
Portable chest x-ray HISTORY: Shortness of breath, endotracheal tube placement Compared to prior exam performed earlier in the day (0801 hours), an endotracheal tube has been inserted. The tip is approximately 1.5 cm above the izzy. No focal pulmonary processes. IMPRESSION: 1. Endotracheal tube placement as noted above 2. No focal pulmonary processes
--- NOTE | 2017-07-05 11:16 | Diagnostic Imaging Report ---
Portable chest x-ray HISTORY: Shortness of breath, nasogastric tube placement Compared to prior exam performed earlier in the day (0955 hours), nasogastric tube has been inserted. Tip extends below the diaphragm into the region of the stomach. An endotracheal tube tip is approximately 2.0 cm above the izzy. IMPRESSION: 1. New nasogastric tube placement as noted above
[2017-07-05 12:09] LABS: ALLEN TEST PASS; pH 7.48 (7.35-7.45)
--- NOTE | 2017-07-05 15:49 | General Progress Note ---
Subjective - Review of Systems Service Date: 07/05/17 Objective - Results Result Diagrams: 07/05/17 06:05 07/05/17 06:05 Recent Labs: Laboratory Last Values WBC 25.4 Th/cmm (4.8-10.8) H* 07/05/17 06:05 RBC 3.12 Mil/cmm (3.80-5.20) L 07/05/17 06:05 Hgb 9.2 gm/dL (12-16) L 07/05/17 06:05 Hct 27.7 % (41.0-60) L 07/05/17 06:05 MCV 88.5 fl (81-100) 07/05/17 06:05 MCH 29.3 pg (27.0-31.0) 07/05/17 06:05 MCHC Differential 33.1 pg (28.0-36.0) 07/05/17 06:05 RDW 16.1 % (11.5-20.0) 07/05/17 06:05 Plt Count 377 Th/cmm (150-400) 07/05/17 06:05 MPV 7.0 fl 07/05/17 06:05 Neutrophils % HEAD ATHLETIC TRAINER/STRENGTH COACH 07/05/17 06:05 Band Neutrophils % 4 % (0-10) 07/05/17 06:05 Lymphocytes % HEAD ATHLETIC TRAINER/STRENGTH COACH 07/05/17 06:05 Monocytes % HEAD ATHLETIC TRAINER/STRENGTH COACH 07/05/17 06:05 Eosinophils % HEAD ATHLETIC TRAINER/STRENGTH COACH 07/05/17 06:05 Basophils % HEAD ATHLETIC TRAINER/STRENGTH COACH 07/05/17 06:05 Neutrophils (Manual) 79 % (40-80) 07/05/17 06:05 Lymphocytes 14 % (20-50) L 07/05/17 06:05 Monocytes 2 % (2-10) 07/05/17 06:05 Eosinophils 1 % (0-5) 07/05/17 06:05 Basophils 0 % (0-3) 07/01/17 14:10 Specimen Source Arterial 07/05/17 11:45 Sample Site Right Radial 07/05/17 11:45 pH 7.48 (7.35-7.45) H 07/05/17 11:45 pCO2 33.0 mmHg (35.0-45.0) L 07/05/17 11:45 pO2 224.0 mmHg (80.0-100.0) H 07/05/17 11:45 HCO3 26.2 mEq/L (20.0-26.0) H 07/05/17 11:45 Base Excess 1.5 mEq/L (-3.0-3.0) 07/05/17 11:45 O2 Saturation 100.0 % (92.0-100.0) 07/05/17 11:45 Darius Test PASS 07/05/17 11:45 Vent Rate 14 07/05/17 11:45 Inspired O2 50 07/05/17 11:45 Tidal Volume 450 07/05/17 11:45 PEEP 5 07/05/17 11:45 Critical Value PW 07/05/17 11:45 Sodium 143 mEq/L (136-145) 07/05/17 06:05 Potassium 3.6 mEq/L (3.5-5.1) 07/05/17 06:05 Chloride 112 mEq/L (98-107) H 07/05/17 06:05 Carbon Dioxide 24.2 mEq/L (21.0-31.0) 07/05/17 06:05 Anion Gap 10.4 (7.0-16.0) 07/05/17 06:05 BUN 11 mg/dL (7-25) 07/05/17 06:05 Creatinine 0.8 mg/dL (0.6-1.2) 07/05/17 06:05 Est GFR ( Amer) TNP 07/05/17 06:05 Est GFR (Non-Af Amer) TNP 07/05/17 06:05 BUN/Creatinine Ratio 13.8 07/05/17 06:05 Glucose 146 mg/dL (70-105) H 07/05/17 06:05 Whole Bld Lactic Acid 3.99 mmol/L (0.60-1.99) H* 07/05/17 13:00 Calcium 8.7 mg/dL (8.6-10.3) 07/05/17 06:05 Phosphorus 1.5 mg/dL (2.5-5.0) L 07/02/17 05:20 Magnesium 1.7 mg/dL (1.9-2.7) L 07/02/17 05:20 Iron 21 07/03/17 05:48 TIBC 131 07/03/17 05:48 Iron Saturation 16 07/03/17 05:48 Unsaturated IBC 110 07/03/17 05:48 Ferritin 334 07/03/17 05:48 Total Bilirubin 0.5 mg/dL (0.3-1.0) 07/05/17 06:05 AST 16 U/L (13-39) 07/05/17 06:05 ALT 8 U/L (7-52) 07/05/17 06:05 Alkaline Phosphatase 66 U/L (34-104) 07/05/17 06:05 Troponin I 0.09 ng/mL (0.01-0.05) H* D 07/04/17 05:50 B-Natriuretic Peptide 215.0 pg/mL (5.0-100.0) H 07/01/17 14:10 Total Protein 5.6 gm/dL (6.0-8.3) L 07/05/17 06:05 Albumin 2.6 gm/dL (3.7-5.3) L 07/05/17 06:05 Globulin 3.0 gm/dL 07/05/17 06:05 Albumin/Globulin Ratio 0.9 (1.0-1.8) L 07/05/17 06:05 Triglycerides 107 mg/dL (<150) 07/04/17 05:50 Cholesterol 114 mg/dL (<200) 07/04/17 05:50 LDL Cholesterol Direct 59 mg/dL (75-193) L 07/04/17 05:50 HDL Cholesterol 31 mg/dL (23-92) 07/04/17 05:50 TSH 1.46 uIU/ml (0.34-5.60) 07/04/17 05:50 Urine Source RANDOM 07/01/17 15:15 Urine Color YELLOW 07/01/17 15:15 Urine Clarity CLOUDY (CLEAR) H 07/01/17 15:15 Urine pH 5.5 (4.6 - 8.0) 07/01/17 15:15 Ur Specific [place] >= 1.030 (1.005-1.030) 07/01/17 15:15 Urine Protein TRACE mg/dL (NEGATIVE) 07/01/17 15:15 Urine Glucose (UA) NEGATIVE mg/dL (NEGATIVE) 07/01/17 15:15 Urine Ketones 15 mg/dL (NEGATIVE) H 07/01/17 15:15 Urine Blood SMALL (NEGATIVE) H 07/01/17 15:15 Urine Nitrate POSITIVE (NEGATIVE) H 07/01/17 15:15 Urine Bilirubin SMALL (NEGATIVE) H 07/01/17 15:15 Urine Urobilinogen 0.2 E.U./dL (0.2 - 1.0) 07/01/17 15:15 Ur Leukocyte Esterase LARGE (NEGATIVE) H 07/01/17 15:15 Urine RBC 2-5 /hpf (0-5) 07/01/17 15:15 Urine WBC >100 /hpf (0-5) H 07/01/17 15:15 Ur Epithelial Cells FEW /lpf (FEW) 07/01/17 15:15 Urine Bacteria MANY /hpf (NONE SEEN) H 07/01/17 15:15 - Physical Exam Vitals and I&O: Vital Signs Temp 98.5 F 07/05/17 14:00 Pulse 113 07/05/17 15:00 Resp 16 07/05/17 15:00 BP 93/31 07/05/17 15:00 Pulse Ox 96 07/05/17 15:00 Intake & Output 07/04/17 07/05/17 07/05/17 18:59 06:59 18:59 Intake Total 50 1100 203 Balance 50 1100 203 Weight (lbs) 46.266 kg 46.266 kg Intake: Intake, IV Amount 50 1100 203 Amiodarone 150 mg In 103 Dextrose 5% 100 ml @ 618 mls/hr IV ONCE ONE Rx#: [id number] D5-0.45NS 1,000 ml @ 75 1000 mls/hr IV .[id number] [facility] Rx #:[id number] Piperacillin Sodium/ 50 100 100 Tazobact 2.25 gm In Sodium Chloride 0.9% 50 ml @ 100 mls/hr IV Q6HR [facility] Rx#:[id number] Other: # Voids 2 # Bowel Movements 0 Stool Characteristics Soft Soft Liquid Brown Weight Source Bedscale Bedscale Active Medications: Current Medications Acetaminophen (Tylenol) 650 mg PO Q4H PRN PRN Reason: Fever > 101 Stop: 08/30/17 22:06 Last Admin: 07/05/17 00:38 Dose: 650 mg Acetaminophen/Hydrocodone Bitart ([place] 10 Mg/325 Mg) 1 tab PO Q6H PRN PRN Reason: mod pain Stop: 08/30/17 22:07 Albuterol/Ipratropium (Duoneb Neb) 3 ml HHN Q4HRT PRN PRN Reason: Wheezing Stop: 08/30/17 22:13 Albuterol/Ipratropium (Duoneb Neb) 3 ml HHN Q6HRT [facility] Stop: 08/31/17 00:59 Last Admin: 07/05/17 14:19 Dose: 3 ml Ascorbic Acid (Vitamin C) 500 mg PO DAILY [facility] Stop: 08/31/17 08:59 Last Admin: 07/04/17 09:07 Dose: 500 mg Bisacodyl (Dulcolax 10 Mg Supp) 10 mg RC HS PRN PRN Reason: BOWEL CARE MANAGEMENT Stop: 08/30/17 22:18 Budesonide (Pulmicort) 0.5 mg HHN BIDRT [facility] Stop: 08/31/17 18:59 Last Admin: 07/05/17 07:26 Dose: 0.5 mg Chlorhexidine Gluconate (Peridex) 15 ml MM 0800,2000 [facility] Stop: 09/03/17 19:59 Cyproheptadine HCl (Periactin) 4 mg PO BID [facility] Stop: 08/31/17 08:59 Last Admin: 07/04/17 17:28 Dose: 4 mg Docusate Sodium (Colace) 100 mg PO BID [facility] Stop: 08/31/17 08:59 Last Admin: 07/04/17 17:28 Dose: 100 mg Ferrous Sulfate (Iron) 325 mg PO BID [facility] Stop: 08/31/17 08:59 Last Admin: 07/04/17 17:28 Dose: 325 mg Folic Acid (Folate) 1 mg PO DAILY [facility] Stop: 08/31/17 08:59 Last Admin: 07/04/17 09:07 Dose: 1 mg Piperacillin Sod/Tazobactam (Sod 2.25 gm/ Sodium Chloride) 50 mls @ 100 mls/hr IV Q6HR [facility] Stop: 08/31/17 00:00 Last Infusion: 07/05/17 14:22 Dose: Infused Dextrose/Sodium Chloride (D5-0.45ns) 1,000 mls @ 75 mls/hr IV .[id number] [facility] Stop: 09/01/17 11:59 Last Admin: 07/04/17 22:27 Dose: 75 mls/hr Amiodarone HCl 450 mg/ (Dextrose) 259 mls @ 0 mls/hr IV TITR [facility]; Titrate PRN Reason: Protocol Stop: 09/03/17 08:59 Norepinephrine Bitartrate 4 mg (/ Dextrose) 254 mls @ 0 mls/hr IV TITR PRN; Protocol; Titrate PRN Reason: BP MAINTENANCE (PER PROTOCOL) Stop: 09/03/17 09:34 Vancomycin HCl 0.75 gm/ Sodium (Chloride) 250 mls @ 165 mls/hr IV Q24H [facility] Stop: 09/04/17 09:59 Lactobacillus Rhamnosus (Culturelle 15b) 1 each PO DAILY [facility] Stop: 09/01/17 08:59 Last Admin: 07/04/17 09:07 Dose: 1 each Lactulose (Cephulac) 20 gm PO QID PRN PRN Reason: Constipation Stop: 08/30/17 22:18 Miscellaneous (Probiotic Screen) 1 ea PRN PRN PRN Reason: PROTOCOL Stop: 09/01/17 08:44 Miscellaneous (Vancomycin Iv Per Pharmacy) 1 [facility] PRN PRN PRN Reason: PROTOCOL Stop: 09/03/17 11:06 Morphine Sulfate (Morphine) 2 mg IVP Q4H PRN PRN Reason: moderate pain Stop: 08/30/17 22:07 Last Admin: 07/03/17 20:18 Dose: 2 mg Morphine Sulfate (Morphine) 2 mg IVP Q4HR PRN PRN Reason: PAIN Stop: 08/30/17 22:19 Multivitamins/Vitamin C (Theragran) 1 tab PO DAILY [facility] Stop: 08/31/17 08:59 Last Admin: 07/04/17 09:07 Dose: 1 tab Mupirocin (Bactroban Oint) 1 appl NS BID [facility] Stop: 07/07/17 09:01 Last Admin: 07/04/17 17:29 Dose: 1 appl Pantoprazole Sodium (Protonix) 40 mg IVP DAILY [facility] Stop: 09/04/17 08:59 Rivaroxaban (Xarelto) 10 mg PO DAILY [facility] Stop: 09/03/17 08:59 General: Mild distress, Other (cachextic, very weak) HEENT: Atraumatic, PERRLA Neck: Supple Cardiovascular: Other (in A fib) Lungs: Other (decreased breath sounds b/l) Abdomen: Bowel sounds Neurological: Other (ms str 4/5) - Procedures Procedures: Procedures Procedure Code Date INSERT EMERGENCY AIRWAY 26556 07/01/17 INSERTION OF ENDOTRACHEAL AIRWAY INTO TRACHEA, VIA OPENING [id number] 07/01/17 RESPIRATORY VENTILATION, LESS THAN 24 CONSECUTIVE HOURS [id number] 07/01/17 VENT MGMT INPAT INIT DAY 60557 07/01/17 Assessment/Plan - Problem List Patient Problems: All Active Problems WEAKESS AND POOR ORAL INTAKE (Acute) - Assessment Assessment: * Advanced metastatic cancer * poor functional status * Anemia likely of chronic disease * Respiratory failure s/p intubation 07/05 iron studies cw anemia of chronic disease. continue anticoagulation Nutritional Asmnt/Malnutr-PDOC - Dietary Evaluation Malnutrition Findings (Please click <Entered> for more info): Nutritional Asmnt/Malnutrition Start: 07/03/17 13: 22 Text: Status: Active Freq: Document 07/03/17 13:22 MMULJENN (Rec: 07/03/17 13:35 MMULHERN RAFITA- FN) Nutritional Asmnt/Malnutrition Patient General Information Nutritional Screening Consult Diagnosis UTI, Failure to thrive, hypokalemia Pertinent Medical Hx/Surgical Hx CAD, HTN, COPD, Stage 4 lung cancer, peripheral neuropathy, constipation, GERD, anxiety, low back pain Subjective Information Consult received for Failure to Thrive. Current Diet Order/ Nutrition Support Regular diet, pureed with mechaical soft Patient / S.O Not Indicated Pertinent Medications Vitamin C, dulcolax, D5-0.45 NS @ 75 ml/hr, colace, iron, folate, lactulose, theragran Pertinent Labs (07/02) P 1.5, Mg 1.7, albumin 2.9 Nutritional Hx/Data Height 1.6 m Height (Calculated Centimeters) 160.0 Current Weight (lbs) 54.885 kg Weight (Calculated Kilograms) 54.9 Weight (Calculated Grams) 41927.7 Interior Body Weight 115 % Interior Body Weight 105 Body Mass Index (BMI) 21.4 Recent Weight Change No Weight Status Approriate GI Symptoms GI Symptoms None Last BM Prior to admission Difficult in: None Food Allergies No Cultural/Ethnic/Bahai Belief None indicated Skin Integrity/Comment: Pradeep 15 Current %PO Poor (25-49%) Estimated Nutritional Goals BEE in Kcals: Using Current wt Calories/Kcals/Kg 55kg CBW (25-30kcal/kg) Kcals Calculated 3764-1336 kcal/day Protein: Using Current wt Protein g/k-1.2 gm/kg Protein Calculated 55-65 gm/day Fluid: ml 5130-4338 ml/day (1 ml/kcal) Nutritional Problem 2. Problem Problem Inadequate oral intake related to Etiology poor appetite aeb Signs/Symptoms: meeting <75% of estimated nutrient needs 1. Problem Problem Altered nutrition related lab values related to Etiology electrolyte imbalance aeb Signs/Symptoms: P 1.5, Mg 1.7 Intervention/Recommendation Comments 1. Continue pureed diet as tolerated by patient. 2. RN To assist with feedings and encourage oral intake. 3. Consider adding Boost plus between meals to optimize calorie and protein intake. Expected Outcomes/Goals Expected Outcomes/Goals Oral intake to meet >75% of needs, weight stable, nutrition labs WNL F/U MR
[2017-07-05] MEDS ORDERED: Amiodarone 450 MG in Sodium Chloride 0.9% 250 ML IV SCH (16:30)
[2017-07-05] MEDS: Cyproheptadine 4 mg Tab PO SCH ×2 (17:16)
[2017-07-05] MEDS: Multivitamin Tab PO SCH (17:35)
[2017-07-05 18:42] LABS: URINE MICROSCOPIC INDICATED? YES; URINE SOURCE CATH
[2017-07-05 18:46] LABS: URINE BLOOD SMALL (NEGATIVE); URINE GLUCOSE (UA) NEGATIVE (NEGATIVE); URINE KETONE TRACE mg/dL (NEGATIVE); URINE LEUKOCYTE ESTERASE LARGE (NEGATIVE); URINE NITRATE NEGATIVE (NEGATIVE); URINE PH 5.5 (4.6 - 8.0); URINE PROTEIN 30 mg/dL (NEGATIVE); URINE UROBILINOGEN 0.2 E.U./dL (0.2 - 1.0)
[2017-07-05 18:58] LABS: URINE BILIRUBIN NEGATIVE (NEGATIVE); URINE CLARITY CLOUDY (CLEAR); URINE COLOR YELLOW
[2017-07-05 19:01] LABS: URINE BACTERIA FEW /hpf (NONE SEEN); URINE EPITHELIAL CELLS FEW /lpf (FEW); URINE WBC >100 /hpf (0-5); URINE YEAST FEW /hpf (NONE SEEN)
[2017-07-05] MEDS ORDERED: Chlorhexidine Gluconate 0.12% 15mL Mouthwash MM SCH (20:00)
[2017-07-05] MEDS: Chlorhexidine Gluconate 0.12% 15mL Mouthwash MM SCH (20:08)
[2017-07-05] MEDS: Morphine Sulfate 4 mg/mL 1mL Syr IVP PRN (22:30)
[2017-07-06] MEDS: Albuterol/Ipratropium Neb 3 ML AERS HHN SCH ×4 (00:52→18:47)
[2017-07-06 05:34] LABS: BASOPHILE ABSOLUTE 0.4 Th/cumm (0-0.2); EOSINOPHILE ABSOLUTE 0.2 Th/cmm (0.1-0.4); HEMATOCRIT 30.8 % (41.0-60); LYMPHOCYTE ABSOLUTE 1.2 Th/cmm (1.5-3.0); MANUAL DIFF REQUIRED? YES; MEAN CELL VOLUME 91.3 fl (81-100); MEAN CORPUSCULAR HEMOGLOBIN 29.6 pg (27.0-31.0); MEAN CORPUSCULAR HGB CONC 32.4 pg (28.0-36.0); MEAN PLATELET VOLUME 7.3 fl; MONOCYTE ABSOLUTE 1.6 Th/cmm (0.3-1.0); NEUTROPHILE ABSOLUTE 32.7 Th/cmm (1.8-8.0); PLATELET COUNT 331 Th/cmm (150-400); RED BLOOD COUNT 3.37 Mil/cmm (3.80-5.20); RED CELL DISTRIBUTION WIDTH 16.3 % (11.5-20.0)
[2017-07-06 05:52] LABS: ANION GAP 20.8 (7.0-16.0); BUN - UREA NITROGEN 17 mg/dL (7-25); CALCIUM SERUM 8.5 mg/dL (8.6-10.3); CARBON DIOXIDE 14.9 mEq/L (21.0-31.0); CHLORIDE 108 mEq/L (98-107); CREATININE - SERUM 1.1 mg/dL (0.6-1.2); GLUCOSE 98 mg/dL (70-105); POTASSIUM SERUM 3.7 mEq/L (3.5-5.1); SODIUM SERUM 140 mEq/L (136-145)
[2017-07-06 06:19] LABS: WHITE BLOOD COUNT 36.1 Th/cmm (4.8-10.8)
[2017-07-06 07:56] LABS: TOTAL CELLS COUNTED 100
[2017-07-06 07:57] LABS: BAND NEUTROPHILE 4 % (0-10); LYMPHOCYTE 6 % (20-50); MONOCYTE 6 % (2-10); NEUTROPHILS 84 % (40-80)
[2017-07-06] MEDS: Chlorhexidine Gluconate 0.12% 15mL Mouthwash MM SCH ×2 (08:00→20:42)
[2017-07-06] MEDS: Budesonide 0.5 Mg/2 mL Ud HHN SCH ×2 (08:10→18:47)
--- NOTE | 2017-07-06 08:36 | General Progress Note ---
Subjective - Review of Systems Service Date: 07/06/17 Subjective: Pt seen and eval. In bed. Very weak. Needs full ADL support. Cannot hold up her head or feed herself. Incontinent. Seen by jayson, bren, and heme onc, all of whom agree with hospice care. Dr. Montanez discussed poor prog with son. No fevers or chills. WBC elevated. No falls. Pt went into A fib pm 07/04/16, and was transferred to ICU on digoxin. Intubated as of 07/05/17. Has been on Amiodarone and Levophed drip, both of which are being turned off right now. Objective - Results Result Diagrams: 07/06/17 04:56 07/06/17 04:56 Recent Labs: Laboratory Last Values WBC 36.1 Th/cmm (4.8-10.8) H* D 07/06/17 04:56 RBC 3.37 Mil/cmm (3.80-5.20) L 07/06/17 04:56 Hgb 10.0 gm/dL (12-16) L 07/06/17 04:56 Hct 30.8 % (41.0-60) L 07/06/17 04:56 MCV 91.3 fl (81-100) 07/06/17 04:56 MCH 29.6 pg (27.0-31.0) 07/06/17 04:56 MCHC Differential 32.4 pg (28.0-36.0) 07/06/17 04:56 RDW 16.3 % (11.5-20.0) 07/06/17 04:56 Plt Count 331 Th/cmm (150-400) 07/06/17 04:56 MPV 7.3 fl 07/06/17 04:56 Neutrophils % [employer]ER 07/05/17 06:05 Band Neutrophils % 4 % (0-10) 07/06/17 04:56 Lymphocytes % [employer] 07/05/17 06:05 Monocytes % [employer] 07/05/17 06:05 Eosinophils % [employer] 07/05/17 06:05 Basophils % [employer] 07/05/17 06:05 Neutrophils (Manual) 84 % (40-80) H 07/06/17 04:56 Lymphocytes 6 % (20-50) L 07/06/17 04:56 Monocytes 6 % (2-10) 07/06/17 04:56 Eosinophils 1 % (0-5) 07/05/17 06:05 Basophils 0 % (0-3) 07/01/17 14:10 Specimen Source Arterial 07/05/17 11:45 Sample Site Right Radial 07/05/17 11:45 pH 7.48 (7.35-7.45) H 07/05/17 11:45 pCO2 33.0 mmHg (35.0-45.0) L 07/05/17 11:45 pO2 224.0 mmHg (80.0-100.0) H 07/05/17 11:45 HCO3 26.2 mEq/L (20.0-26.0) H 07/05/17 11:45 Base Excess 1.5 mEq/L (-3.0-3.0) 07/05/17 11:45 O2 Saturation 100.0 % (92.0-100.0) 07/05/17 11:45 Darius Test PASS 07/05/17 11:45 Vent Rate 14 07/05/17 11:45 Inspired O2 50 07/05/17 11:45 Tidal Volume 450 07/05/17 11:45 PEEP 5 07/05/17 11:45 Critical Value PW 07/05/17 11:45 Sodium 140 mEq/L (136-145) 07/06/17 04:56 Potassium 3.7 mEq/L (3.5-5.1) 07/06/17 04:56 Chloride 108 mEq/L (98-107) H 07/06/17 04:56 Carbon Dioxide 14.9 mEq/L (21.0-31.0) L 07/06/17 04:56 Anion Gap 20.8 (7.0-16.0) H 07/06/17 04:56 BUN 17 mg/dL (7-25) 07/06/17 04:56 Creatinine 1.1 mg/dL (0.6-1.2) 07/06/17 04:56 Est GFR ( Amer) TNP 07/06/17 04:56 Est GFR (Non-Af Amer) TNP 07/06/17 04:56 BUN/Creatinine Ratio 15.5 07/06/17 04:56 Glucose 98 mg/dL (70-105) 07/06/17 04:56 Whole Bld Lactic Acid 3.99 mmol/L (0.60-1.99) H* 07/05/17 13:00 Calcium 8.5 mg/dL (8.6-10.3) L 07/06/17 04:56 Phosphorus 1.5 mg/dL (2.5-5.0) L 07/02/17 05:20 Magnesium 1.7 mg/dL (1.9-2.7) L 07/02/17 05:20 Iron 21 07/03/17 05:48 TIBC 131 07/03/17 05:48 Iron Saturation 16 07/03/17 05:48 Unsaturated IBC 110 07/03/17 05:48 Ferritin 334 07/03/17 05:48 Total Bilirubin 0.5 mg/dL (0.3-1.0) 07/05/17 06:05 AST 16 U/L (13-39) 07/05/17 06:05 ALT 8 U/L (7-52) 07/05/17 06:05 Alkaline Phosphatase 66 U/L (34-104) 07/05/17 06:05 Troponin I 0.09 ng/mL (0.01-0.05) H* D 07/04/17 05:50 B-Natriuretic Peptide 215.0 pg/mL (5.0-100.0) H 07/01/17 14:10 Total Protein 5.6 gm/dL (6.0-8.3) L 07/05/17 06:05 Albumin 2.6 gm/dL (3.7-5.3) L 07/05/17 06:05 Globulin 3.0 gm/dL 07/05/17 06:05 Albumin/Globulin Ratio 0.9 (1.0-1.8) L 07/05/17 06:05 Triglycerides 107 mg/dL (<150) 07/04/17 05:50 Cholesterol 114 mg/dL (<200) 07/04/17 05:50 LDL Cholesterol Direct 59 mg/dL (75-193) L 07/04/17 05:50 HDL Cholesterol 31 mg/dL (23-92) 07/04/17 05:50 TSH 1.46 uIU/ml (0.34-5.60) 07/04/17 05:50 Urine Source CATH 07/05/17 18:30 Urine Color YELLOW 07/05/17 18:30 Urine Clarity CLOUDY (CLEAR) H 07/05/17 18:30 Urine pH 5.5 (4.6 - 8.0) 07/05/17 18:30 Ur Specific [place] 1.025 (1.005-1.030) 07/05/17 18:30 Urine Protein 30 mg/dL (NEGATIVE) H 07/05/17 18:30 Urine Glucose (UA) NEGATIVE mg/dL (NEGATIVE) 07/05/17 18:30 Urine Ketones TRACE mg/dL (NEGATIVE) 07/05/17 18:30 Urine Blood SMALL (NEGATIVE) H 07/05/17 18:30 Urine Nitrate NEGATIVE (NEGATIVE) 07/05/17 18:30 Urine Bilirubin NEGATIVE (NEGATIVE) 07/05/17 18:30 Urine Urobilinogen 0.2 E.U./dL (0.2 - 1.0) 07/05/17 18:30 Ur Leukocyte Esterase LARGE (NEGATIVE) H 07/05/17 18:30 Urine RBC 2-5 /hpf (0-5) 07/05/17 18:30 Urine WBC >100 /hpf (0-5) H 07/05/17 18:30 Ur Epithelial Cells FEW /lpf (FEW) 07/05/17 18:30 Urine Bacteria FEW /hpf (NONE SEEN) 07/05/17 18:30 Urine Yeast FEW /hpf (NONE SEEN) H 07/05/17 18:30 - Physical Exam Vitals and I&O: Vital Signs Temp 98 F 07/06/17 04:06 Pulse 97 07/06/17 07:00 Resp 21 07/06/17 07:00 BP 140/76 07/06/17 07:00 Pulse Ox 99 07/06/17 07:00 Intake & Output 07/05/17 07/06/17 07/06/17 18:59 06:59 18:59 Intake Total 303 100 Output Total 400 200 Balance -97 -100 Weight (lbs) 51.256 kg 51.256 kg Intake: Intake, IV Amount 253 50 Amiodarone 150 mg In 103 Dextrose 5% 100 ml @ 618 mls/hr IV ONCE ONE Rx#: [id number] Piperacillin Sodium/ 150 50 Tazobact 2.25 gm In Sodium Chloride 0.9% 50 ml @ 100 mls/hr IV Q6HR [facility] Rx#:[id number] Tube Feeding 50 Other 50 Output: Urine 200 200 Urine/Stool Mix 200 Other: # Bowel Movements 2 3 Stool Characteristics Soft Liquid Liquid Black Brown Weight Source Bedscale Bedscale Active Medications: Current Medications Acetaminophen (Tylenol) 650 mg PO Q4H PRN PRN Reason: Fever > 101 Stop: 08/30/17 22:06 Last Admin: 07/05/17 20:34 Dose: 650 mg Acetaminophen/Hydrocodone Bitart ([place] 10 Mg/325 Mg) 1 tab PO Q6H PRN PRN Reason: mod pain Stop: 08/30/17 22:07 Albuterol/Ipratropium (Duoneb Neb) 3 ml HHN Q4HRT PRN PRN Reason: Wheezing Stop: 08/30/17 22:13 Albuterol/Ipratropium (Duoneb Neb) 3 ml HHN Q6HRT [facility] Stop: 08/31/17 00:59 Last Admin: 07/06/17 08:11 Dose: 3 ml Ascorbic Acid (Vitamin C) 500 mg PO DAILY [facility] Stop: 08/31/17 08:59 Last Admin: 07/05/17 09:00 Dose: Not Given Bisacodyl (Dulcolax 10 Mg Supp) 10 mg RC HS PRN PRN Reason: [employer] CARE [employer]NAGEMENT Stop: 08/30/17 22:18 Budesonide (Pulmicort) 0.5 mg HHN BIDRT [facility] Stop: 08/31/17 18:59 Last Admin: 07/06/17 08:10 Dose: 0.5 mg Chlorhexidine Gluconate (Peridex) 15 ml MM 0800,2000 [facility] Stop: 09/03/17 19:59 Last Admin: 07/05/17 20:08 Dose: 15 ml Cyproheptadine HCl (Periactin) 4 mg PO BID [facility] Stop: 08/31/17 08:59 Last Admin: 07/05/17 17:16 Dose: 4 mg Docusate Sodium (Colace) 100 mg PO BID [facility] Stop: 08/31/17 08:59 Last Admin: 07/05/17 17:17 Dose: 100 mg Ferrous Sulfate (Iron) 325 mg PO BID [facility] Stop: 08/31/17 08:59 Last Admin: 07/05/17 17:16 Dose: 325 mg Folic Acid (Folate) 1 mg PO DAILY [facility] Stop: 08/31/17 08:59 Last Admin: 07/05/17 09:00 Dose: Not Given Piperacillin Sod/Tazobactam (Sod 2.25 gm/ Sodium Chloride) 50 mls @ 100 mls/hr IV Q6HR [facility] Stop: 08/31/17 00:00 Last Admin: 07/06/17 05:31 Dose: 100 mls/hr Dextrose/Sodium Chloride (D5-0.45ns) 1,000 mls @ 75 mls/hr IV .[id number] [facility] Stop: 09/01/17 11:59 Last Admin: 07/04/17 22:27 Dose: 75 mls/hr Amiodarone HCl 450 mg/ Sodium (Chloride) 259 mls @ 0 mls/hr IV TITR [facility]; Titrate PRN Reason: Protocol Stop: 09/03/17 16:29 Last Admin: 07/05/17 20:05 Dose: 0.5 mg/min, 17.26 mls/hr Norepinephrine Bitartrate 4 mg (/ Sodium Chloride) 254 mls @ 0 mls/hr IV TITR [facility]; Titrate PRN Reason: Protocol Stop: 09/03/17 16:29 Lactobacillus Rhamnosus (Culturelle 15b) 1 each PO DAILY [facility] Stop: 09/01/17 08:59 Last Admin: 07/05/17 09:00 Dose: Not Given Lactulose (Cephulac) 20 gm PO QID PRN PRN Reason: Constipation Stop: 08/30/17 22:18 Miscellaneous (Probiotic Screen) 1 ea PRN PRN PRN Reason: PROTOCOL Stop: 09/01/17 08:44 Miscellaneous (Vancomycin Iv Per Pharmacy) 1 ea PRN PRN PRN Reason: PROTOCOL Stop: 09/03/17 11:06 Morphine Sulfate (Morphine) 2 mg IVP Q4H PRN PRN Reason: moderate pain Stop: 08/30/17 22:07 Last Admin: 07/05/17 22:30 Dose: 2 mg Morphine Sulfate (Morphine) 2 mg IVP Q4HR PRN PRN Reason: PAIN Stop: 08/30/17 22:19 Multivitamins/Vitamin C (Theragran) 1 tab PO DAILY [facility] Stop: 08/31/17 08:59 Last Admin: 07/05/17 17:35 Dose: Not Given Mupirocin (Bactroban Oint) 1 appl NS BID [facility] Stop: 07/07/17 09:01 Last Admin: 07/05/17 17:22 Dose: 1 appl Nicotine (Nicotine Transdermal System) 14 mg TD DAILY [facility] Stop: 09/04/17 08:59 Pantoprazole Sodium (Protonix) 40 mg IVP DAILY [facility] Stop: 09/04/17 08:59 Rivaroxaban (Xarelto) 10 mg PO DAILY [facility] Stop: 09/03/17 08:59 Last Admin: 07/05/17 17:37 Dose: Not Given General: Mild distress, Other (intubated, cachectic appearing) HEENT: Atraumatic, Other (no dc) Neck: Supple, no JVD Cardiovascular: Other (in A fib) Lungs: Other (Intubated, has bl rales) Abdomen: Bowel sounds, Soft, no Tender, no Hepatomegaly Neurological: Other (Pt unable to participate in test) Skin: no Rash Psych/Mental Status: Other (no psychosis) - Procedures Procedures: Procedures Procedure Code Date INSERT EMERGENCY AIRWAY 56286 07/01/17 INSERTION OF ENDOTRACHEAL AIRWAY INTO [place], VIA OPENING [id number] 07/01/17 RESPIRATORY VENTILATION, LESS THAN 24 CONSECUTIVE HOURS [id number] 07/01/17 VENT MGMT INPAT INIT DAY 33354 07/01/17 Assessment/Plan - Problem List Patient Problems: All Active Problems WEAKESS AND POOR ORAL INTAKE (Acute) - Assessment Assessment: Septic shock A fib with RVR Fail to thrive Stage 4 lung ca Sepsis due to E Coli UTI ME Ch pain syn Anemia of ch ill Hypernatremia Hypokalemia Type 2 MD A fib - Plan Plan: Pt holds a poor progonosis. I spoke with the Son at length again. Explained the poor prognosis. Son says he wants everything done. He says he eventually wants to take her to 'another hospital.' Cardio, Pulm, and Heme Onc seeing pt, all of whom agree with comfort care/ hospice. On IV Zosyn and Vanco. Has been on Amiodarone and Levphed drip in ICU. Intubated on 07/05/17. Elec corrected. Nutritional Asmnt/Malnutr-PDOC - Dietary Evaluation Malnutrition Findings (Please click <Entered> for more info): Nutritional Asmnt/Malnutrition Start: 07/03/17 13: 22 Text: Status: Active Freq: Document 04/15/18 13:22 MARGARETHEDGARJENN (Rec: 07/03/17 13:35 URBAN RAFITA- [email or web address]) Nutritional Asmnt/Malnutrition Patient General Information Nutritional Screening Consult Diagnosis UTI, Failure to thrive, hypokalemia Pertinent Medical Hx/Surgical Hx CAD, HTN, COPD, Stage 4 lung cancer, peripheral neuropathy, constipation, GERD, anxiety, low back pain Subjective Information Consult received for Failure to Thrive. Current Diet Order/ Nutrition Support Regular diet, pureed with mechaical soft Patient / S.O Not Indicated Pertinent Medications Vitamin C, dulcolax, D5-0.45 NS @ 75 ml/hr, colace, iron, folate, lactulose, theragran Pertinent Labs (07/02) P 1.5, Mg 1.7, albumin 2.9 Nutritional Hx/Data Height 1.6 m Height (Calculated Centimeters) 160.0 Current Weight (lbs) 54.885 kg Weight (Calculated Kilograms) 54.9 Weight (Calculated Grams) 47493.7 Jeffers Body Weight 115 % Jeffers Body Weight 105 Body Mass Index (BMI) 21.4 Recent Weight Change No Weight Status Approriate GI Symptoms GI Symptoms None Last BM Prior to admission Difficult in: None Food Allergies No Cultural/Ethnic/Rastafari Belief None indicated Skin Integrity/Comment: Pradeep Cook Current %PO Poor (25-49%) Estimated Nutritional Goals BEE in Kcals: Using Current wt Calories/Kcals/Kg 55kg CBW (25-30kcal/kg) Kcals Calculated 5528-8020 kcal/day Protein: Using Current wt Protein g/k-1.2 gm/kg Protein Calculated 55-65 gm/day Fluid: ml 8630-8474 ml/day (1 ml/kcal) Nutritional Problem 2. Problem Problem Inadequate oral intake related to Etiology poor appetite aeb Signs/Symptoms: meeting <75% of estimated nutrient needs 1. Problem Problem Altered nutrition related lab values related to Etiology electrolyte imbalance aeb Signs/Symptoms: P 1.5, Mg 1.7 Intervention/Recommendation Comments 1. Continue pureed diet as tolerated by patient. 2. RN To assist with feedings and encourage oral intake. 3. Consider adding Boost plus between meals to optimize calorie and protein intake. Expected Outcomes/Goals Expected Outcomes/Goals Oral intake to meet >75% of needs, weight stable, nutrition labs WNL F/U MR 07/06-
--- NOTE | 2017-07-06 08:46 | Diagnostic Imaging Report ---
Portable chest x-ray HISTORY: Shortness of breath Compared with prior exam of July 05, 2017, no focal pulmonary processes are seen. An endotracheal tube tip is approximately 2.5 cm above the izzy. IMPRESSION: 1. No change in the pulmonary status. No focal processes.
[2017-07-06 09:59] LABS: pH 7.47 (7.35-7.45)
[2017-07-06 10:01] LABS: ALLEN TEST YES
[2017-07-06] MEDS: Nicotine 14 mg/24 hr Tdm TD SCH (12:00)
[2017-07-06 13:14] LABS: FERRITIN 334 ng/mL (15-150)
[2017-07-06] MEDS: Cyproheptadine 4 mg Tab PO SCH ×2 (14:08→17:00)
[2017-07-06] MEDS: Ferrous Sulfate 325 MG TAB PO SCH ×2 (14:09→17:00)
[2017-07-06] MEDS: Lactobacillus Rhamnosus GG 15 Billion CFU CAP.SPRINK PO SCH (14:10)
[2017-07-06] MEDS: Multivitamin Tab PO SCH (14:10)
[2017-07-06] MEDS: D5-0.45NS 1,000 ML IV SCH (22:34)
--- NOTE | 2017-07-06 23:28 | Consultation ---
Consult Note - Consult Note Service Date: 07/06/17 Referring Physician: Minor López Consult Note: PHYSICIAN Consultation Note: Date of Admission: 07/01/17 Purpose of Consultation: sepsis. Chief Complaint: Patient FENG KHALIL was admitted to location Intensive Care Unit with METABOLIC ENCEPHALOPATHY. History of Present Illness: pAtient is 87 year old female with history of Stage IV CA of lung treated at the [facility] by chemotherapy. Patient got weaker and weaker. She lost her appetite. Chemotherapy was discontinued as she could not withstand chemotherapy further. She was transferred to the SNF. she bacame weaker and her mentation deteriorated. She was sent to the ED for further care. She went iinto respiratory failure and required intubation and ventilator support. On initial evalaution, her temperature was 98.7 degree F and WBC Count was 23,800. She developed fever yesterday up to 102 degree F. Her WBC COunt went up tp 36K today. ID consult was called for antibiotic management. Meanwhile he had been receiving Past Medical History: Lung CA stage IV. Chronic pain syndrome. Hypertension. COPD. Cachexia, protein calorie malnutrition. Diagnoses MALIGNANT NEOPLASM OF UNSP PART OF UNSP BRONCHUS OR LUNG (07/01/17) ANEMIA, UNSPECIFIED (07/01/17) DEHYDRATION (07/01/17) HYPOKALEMIA (07/01/17) ANXIETY DISORDER, UNSPECIFIED (07/01/17) CHRONIC PAIN SYNDROME (07/01/17) METABOLIC ENCEPHALOPATHY (07/01/17) ESSENTIAL (PRIMARY) HYPERTENSION (07/01/17) ACUTE BRONCHITIS, UNSPECIFIED (07/01/17) CHRONIC OBSTRUCTIVE PULMONARY DISEASE W (ACUTE) EXACERBATION (07/01/17) PNEUMONITIS DUE TO INHALATION OF FOOD AND VOMIT (07/01/17) CHRONIC RESPIRATORY FAILURE, UNSP W HYPOXIA OR HYPERCAPNIA (07/01/17) URINARY TRACT INFECTION, SITE NOT SPECIFIED (07/01/17) UNSTEADINESS ON FEET (07/01/17) ADULT FAILURE TO THRIVE (07/01/17) CACHEXIA (07/01/17) ENCOUNTER FOR PALLIATIVE CARE (07/01/17) BODY MASS INDEX (BMI) 19.9 OR LESS, ADULT (07/01/17) BED CONFINEMENT STATUS (07/01/17) PERSONAL HISTORY OF OTHER VENOUS THROMBOSIS AND EMBOLISM (07/01/17) PERSONAL HISTORY OF NICOTINE DEPENDENCE (07/01/17) Allergies Allergy/AdvReac Type Severity Reaction Status Date / Time Sulfa (Sulfonamide Allergy Verified 07/01/17 13:27 Antibiotics) Vital Signs Temp 97.7 F 07/06/17 19:00 Pulse 102 07/06/17 22:21 Resp 26 07/06/17 19:00 BP 115/62 07/06/17 19:00 Pulse Ox 100 07/06/17 22:21 Intake & Output 07/06/17 07/06/17 07/07/17 06:59 18:59 06:59 Intake Total 150 355.682 300 Output Total 200 250 Balance -50 105.682 300 Weight (lbs) 51.256 kg 51.256 kg Intake: Intake, IV Amount 100 255.682 300 Amiodarone 450 mg In 205.682 Sodium Chloride 0.9% 250 ml @ Titrate IV TITR [facility] Rx#:[id number] Piperacillin Sodium/ 100 50 50 Tazobact 2.25 gm In Sodium Chloride 0.9% 50 ml @ 100 mls/hr IV Q6HR [facility] Rx#:[id number] Vancomycin HCl 1 gm In 250 Sodium Chloride 0.9% 250 ml @ 165 mls/hr IV Q24HR@ 0800 [facility] Rx#:[id number] Tube Feeding 50 Other 100 Output: Urine 200 250 Other: # Bowel Movements 3 Stool Characteristics Liquid Black Weight Source [facility] Laboratory Results - last 24 hr 07/03/17 07/06/17 07/06/17 05:48 04:56 04:56 WBC 36.1 H* D RBC 3.37 L Hgb 10.0 L Hct 30.8 L MCV 91.3 MCH 29.6 MCHC Differential 32.4 RDW 16.3 Plt Count 331 MPV 7.3 Band Neutrophils % 4 Neutrophils (Manual) 84 H Lymphocytes 6 L Monocytes 6 Specimen Source Sample Site pH pCO2 pO2 HCO3 Base Excess O2 Saturation Darius Test Vent Rate Inspired O2 Tidal Volume PEEP Pressure (ins/psv/peep) Critical Value Sodium 140 Potassium 3.7 Chloride 108 H Carbon Dioxide 14.9 L Anion Gap 20.8 H BUN 17 Creatinine 1.1 Est GFR ( Amer) TNP Est GFR (Non-Af Amer) TNP BUN/Creatinine Ratio 15.5 Glucose 98 Calcium 8.5 L Ferritin 334 H Vancomycin Trough 07/06/17 07/06/17 04:56 09:49 WBC RBC Hgb Hct MCV MCH MCHC Differential RDW Plt Count MPV Band Neutrophils % Neutrophils (Manual) Lymphocytes Monocytes Specimen Source Arterial Sample Site rr pH 7.47 H pCO2 30.0 L pO2 121.0 H HCO3 24.2 Base Excess -1.0 O2 Saturation 99.0 Darius Test YES Vent Rate 14 Inspired O2 30 Tidal Volume 450 PEEP 5 Pressure (ins/psv/peep) 0 Critical Value J.Yutanco Sodium Potassium Chloride Carbon Dioxide Anion Gap BUN Creatinine Est GFR ( Amer) Est GFR (Non-Af Amer) BUN/Creatinine Ratio Glucose Calcium Ferritin Vancomycin Trough 10.3 H Home Medication Medication Instructions Recorded Type Acetaminophen [Tylenol] 325 mg PO Q6HR PRN 07/01/17 History Acetaminophen [Tylenol] 650 mg PO Q6HR PRN 07/01/17 History Albuterol/Ipratropium Neb [Duoneb 3 ml HHN Q6HR PRN 07/01/17 History Neb] Amino Acids/Protein Hydrolys 30 ml PO DAILY 07/01/17 History [Pro-Stat Sugar Free 887 ml] Ascorbate Calcium [Vitamin C] 500 mg PO DAILY 07/01/17 History Bisacodyl [Dulcolax 10 Mg Supp] 10 mg RC HS PRN 07/01/17 History Cyproheptadine HCl 4 mg PO BID 07/01/17 History Dextrose 5 % and 0.9 % NaCl 1,000 ml IV DAILY 07/01/17 History [Dextrose 5%-0.9% NaCl IV Soln] Ferrous Sulfate [Iron] 325 mg PO BID 07/01/17 History Fleet Enema [Fleet Enema] 118 ml RC DAILY PRN 07/01/17 History Fluticasone/Salmeterol [Advair 1 dsk IH BID 07/01/17 History Diskus 250/50] Folic Acid [Folate*] 1 mg PO DAILY 07/01/17 History Glutathione [Glutathione-l] 500 mg PO DAILY 07/01/17 History Hydrocodone/APAP 5mg/325mg [[place] 1 tab PO Q6H PRN 07/01/17 History 5mg/325mg] Lactulose 20 gm PO QID PRN 07/01/17 History Lidocaine 5% Patch [Lidoderm 5% 1 patch TP DAILY 07/01/17 History Patch] Lisinopril 20 mg PO DAILY 07/01/17 History Lorazepam [Ativan] 0.5 mg PO Q6H PRN 07/01/17 History Magnesium Hydroxide [Milk of 30 ml PO PRN PRN 07/01/17 History Magnesia] Multivitamin [Multiple Vitamins] 1 tab PO DAILY 07/01/17 History Ondansetron [Ondansetron Odt] 4 mg PO Q8H PRN 07/01/17 History Prochlorperazine Maleate 10 mg PO Q6H PRN 07/01/17 History [Compazine] Rivaroxaban [Xarelto] 10 mg PO BID 07/01/17 History Current Medications Generic Name Dose Route Start Last Admin Trade Name Freq PRN Reason Stop Dose Admin Acetaminophen 650 mg 07/01/17 22:07 07/06/17 18:25 Tylenol PO 08/30/17 22:06 650 mg Q4H PRN Administration Fever > 101 Acetaminophen/Hydrocodone Bitart 1 tab 07/01/17 22:08 [place] 10 Mg/325 Mg PO 08/30/17 22:07 Q6H PRN mod pain Albuterol/Ipratropium 3 ml 07/01/17 22:14 Duoneb Neb [facility] 08/30/17 22:13 Q4HRT PRN Wheezing Albuterol/Ipratropium 3 ml 07/02/17 01:00 07/06/17 18:47 Duoneb Neb [facility] 08/31/17 00:59 3 ml Q6HRT [facility] Administration Ascorbic Acid 500 mg 07/02/17 09:00 07/06/17 14:08 Vitamin C PO 08/31/17 08:59 Not Given DAILY [facility] Bisacodyl 10 mg 07/01/17 22:19 Dulcolax 10 Mg Supp RC 08/30/17 22:18 HS PRN [employer]NAGEMENT Budesonide 0.5 mg 07/02/17 19:00 07/06/17 18:47 Pulmicort HHN 08/31/17 18:59 0.5 mg BIDRT [facility] Administration Chlorhexidine Gluconate 15 ml 07/05/17 20:00 07/06/17 20:42 Peridex MM 09/03/17 19:59 15 ml 0800,2000 [facility] Administration Cyproheptadine HCl 4 mg 07/02/17 09:00 07/06/17 17:00 Periactin PO 08/31/17 08:59 4 mg BID [facility] Administration Docusate Sodium 100 mg 07/02/17 09:00 07/06/17 17:00 Colace PO 08/31/17 08:59 100 mg BID [facility] Administration Ferrous Sulfate 325 mg 07/02/17 09:00 07/06/17 17:00 Iron PO 08/31/17 08:59 325 mg BID [facility] Administration Folic Acid 1 mg 07/02/17 09:00 07/06/17 14:09 Folate PO 08/31/17 08:59 Not Given DAILY [facility] Piperacillin Sod/Tazobactam 50 mls @ 100 mls/hr 07/02/17 00:00 07/06/17 19:47 Sod 2.25 gm/ Sodium Chloride IV 08/31/17 00:00 Infused Q6HR [facility] Infusion Dextrose/Sodium Chloride 1,000 mls @ 75 mls/hr 07/03/17 12:00 07/06/17 22:34 D5-0.45ns IV 09/01/17 11:59 75 mls/hr .[id number] [facility] Administration Amiodarone HCl 450 mg/ Sodium 259 mls @ 0 mls/hr 07/05/17 16:30 07/06/17 08: 00 Chloride IV 09/03/17 16:29 0 mg/min TITR [facility] 0 mls/hr Protocol Titration Titrate Norepinephrine Bitartrate 4 mg 254 mls @ 0 mls/hr 07/05/17 16:45 / Sodium Chloride IV 09/03/17 16:29 TITR [facility] Protocol Titrate Vancomycin HCl 1 gm/ Sodium 250 mls @ 165 mls/hr 07/06/17 10:00 07/06/17 19: 47 Chloride IV 09/04/17 09:59 Infused Q24HR@0800 [facility] Infusion Lactobacillus Rhamnosus 1 each 07/03/17 09:00 07/06/17 14:10 Culturelle 15b PO 09/01/17 08:59 Not Given DAILY [facility] Lactulose 20 gm 07/01/17 22:19 Cephulac PO 08/30/17 22:18 QID PRN Constipation Lorazepam 1 mg 07/06/17 08:32 07/06/17 21:16 Ativan IVP 09/04/17 08:31 1 mg Q4HR PRN Administration Anxiety Protocol Miscellaneous 1 ea 07/03/17 08:45 Probiotic Screen 09/01/17 08:44 PRN PRN PROTOCOL Miscellaneous 1 07/05/17 11:07 Vancomycin Iv Per Pharmacy 09/03/17 11:06 PRN PRN PROTOCOL Morphine Sulfate 2 mg 07/01/17 22:08 07/05/17 22:30 Morphine IVP 08/30/17 22:07 2 mg Q4H PRN Administration moderate pain Morphine Sulfate 2 mg 07/01/17 22:20 Morphine IVP 08/30/17 22:19 Q4HR PRN PAIN Multivitamins/Vitamin C 1 tab 07/02/17 09:00 07/06/17 14:10 Theragran PO 08/31/17 08:59 Not Given DAILY [facility] Mupirocin 1 appl 07/02/17 17:00 07/06/17 17:00 Bactroban Oint NS 07/07/17 09:01 1 appl BID [facility] Administration Nicotine 14 mg 07/06/17 09:00 07/06/17 12:00 Nicotine Transdermal System TD 09/04/17 08:59 14 mg DAILY [facility] Administration Pantoprazole Sodium 40 mg 07/06/17 09:00 07/06/17 10:00 Protonix IVP 09/04/17 08:59 40 mg DAILY SHADI Administration Rivaroxaban 10 mg 07/05/17 09:00 07/06/17 09:00 Xarelto PO 09/03/17 08:59 Not Given DAILY SHADI Review of Systems: A 12 point ROS was reviewed with the pertinent positive and negatives noted in the HPI. Social History Smoking Status Never smoker Family Medical History None Physical Exam: General: Cachectic, intubated orally, on the ventilator support. HEENT: Head: Normocephalic, atramatic. Oral cavity moist and pinkk tongue. cavity moist pink tongue, Eyes: pallor is present, icterus negative. Neck: Supple No JVD, no carotrd bruit; Cardio: s1 and S 2 WNL Respiratory: Vesicular breath sounds, crackles present. Abdominal: Soft NT ND BS present. Genital/Urinary: Extremities: NCCE. Neurological: Obtunded Assessment: 1. Leukocytosis. Fever, sepsis. 2. Pneumonia. 3. Stage IV lung CA. 4. Protein calorie malnutrion, 5. VDRF. 6. ALTERED MENTAL STATUS, Recommndatios; Continue the same ANTIBIOTICS, ZOSYN AND VANCO IV. overall PROGNOSIS IS GUARDED. Signed, Scott Jensen M.D. [id number]
[2017-07-07] MEDS: Albuterol/Ipratropium Neb 3 ML AERS HHN SCH ×4 (00:48→19:28)
[2017-07-07 06:31] LABS: EOSINOPHILE ABSOLUTE 0.2 Th/cmm (0.1-0.4); HEMATOCRIT 24.1 % (41.0-60); HEMOGLOBIN 8.2 gm/dL (12-16); LYMPHOCYTE ABSOLUTE 0.7 Th/cmm (1.5-3.0); MEAN CELL VOLUME 87.5 fl (81-100); MEAN CORPUSCULAR HEMOGLOBIN 29.7 pg (27.0-31.0); MEAN CORPUSCULAR HGB CONC 33.9 pg (28.0-36.0); MEAN PLATELET VOLUME 7.4 fl; MONOCYTE ABSOLUTE 0.8 Th/cmm (0.3-1.0); PLATELET COUNT 307 Th/cmm (150-400); RED BLOOD COUNT 2.75 Mil/cmm (3.80-5.20)
[2017-07-07 06:47] LABS: ANION GAP 10.2 (7.0-16.0); BUN - UREA NITROGEN 17 mg/dL (7-25); CALCIUM SERUM 7.6 mg/dL (8.6-10.3); CARBON DIOXIDE 19.3 mEq/L (21.0-31.0); CHLORIDE 107 mEq/L (98-107); CREATININE - SERUM 0.8 mg/dL (0.6-1.2); GLUCOSE 174 mg/dL (70-105); SODIUM SERUM 134 mEq/L (136-145)
[2017-07-07 07:11] LABS: POTASSIUM SERUM 2.5 mEq/L (3.5-5.1)
[2017-07-07 07:13] LABS: % LYMPHOCYTES 3.8 % (20.0-50.0); % MONOCYTES 4.8 % (2.0-10.0); % NEUTROPHILS 90.2 % (40.0-80.0); WHITE BLOOD COUNT 17.7 Th/cmm (4.8-10.8)
[2017-07-07 07:14] LABS: % BASOPHILS 0.2 % (0.0-2.0)
[2017-07-07] MEDS: Budesonide 0.5 Mg/2 mL Ud HHN SCH ×2 (07:30→19:28)
[2017-07-07] MEDS: Cyproheptadine 4 mg Tab PO SCH ×2 (09:00→18:52)
[2017-07-07] MEDS: Chlorhexidine Gluconate 0.12% 15mL Mouthwash MM SCH ×2 (09:17→20:13)
[2017-07-07] MEDS: Ferrous Sulfate 325 MG TAB PO SCH ×2 (09:17→18:52)
[2017-07-07] MEDS: Multivitamin Tab PO SCH (09:17)
[2017-07-07] MEDS: Lactobacillus Rhamnosus GG 15 Billion CFU CAP.SPRINK PO SCH (09:17)
[2017-07-07] MEDS: KCL 20mEq/100mL Premix 20 MEQ/100 ML PIGGYBACK IV SCH ×2 (09:18→11:00)
--- NOTE | 2017-07-07 09:31 | General Progress Note ---
Subjective - Review of Systems Service Date: 07/07/17 Subjective: Pt seen and eval. In bed. Non responsive to verbal stimulus. Prior to being intubated, she could not hold up her head or feed herself. Incontinent. Seen by jayson, bren, and heme onc, all of whom agree with hospice care. Dr. Montanez discussed poor prog with son. No fevers or chills. WBC elevated, but improving. No falls. Pt went into A fib pm 07/04/16, and was transferred to ICU on digoxin. Intubated as of 07/05/17. Has been on Amiodarone and Levophed drip, both of which are off as of 07/06/17. Objective - Results Result Diagrams: 07/07/17 05:35 07/07/17 05:35 Recent Labs: Laboratory Last Values WBC 17.7 Th/cmm (4.8-10.8) H 07/07/17 05:35 RBC 2.75 Mil/cmm (3.80-5.20) L 07/07/17 05:35 Hgb 8.2 gm/dL (12-16) L 07/07/17 05:35 Hct 24.1 % (41.0-60) L 07/07/17 05:35 MCV 87.5 fl (81-100) 07/07/17 05:35 MCH 29.7 pg (27.0-31.0) 07/07/17 05:35 MCHC Differential 33.9 pg (28.0-36.0) 07/07/17 05:35 RDW 16.0 % (11.5-20.0) 07/07/17 05:35 Plt Count 307 Th/cmm (150-400) 07/07/17 05:35 MPV 7.4 fl 07/07/17 05:35 Neutrophils % 90.2 % (40.0-80.0) H 07/07/17 05:35 Band Neutrophils % 4 % (0-10) 07/06/17 04:56 Lymphocytes % 3.8 % (20.0-50.0) L 07/07/17 05:35 Monocytes % 4.8 % (2.0-10.0) 07/07/17 05:35 Eosinophils % 1.0 % (0.0-5.0) 07/07/17 05:35 Basophils % 0.2 % (0.0-2.0) 07/07/17 05:35 Neutrophils (Manual) 84 % (40-80) H 07/06/17 04:56 Lymphocytes 6 % (20-50) L 07/06/17 04:56 Monocytes 6 % (2-10) 07/06/17 04:56 Eosinophils 1 % (0-5) 07/05/17 06:05 Basophils 0 % (0-3) 07/01/17 14:10 Specimen Source Arterial 07/06/17 09:49 Sample Site rr 07/06/17 09:49 pH 7.47 (7.35-7.45) H 07/06/17 09:49 pCO2 30.0 mmHg (35.0-45.0) L 07/06/17 09:49 pO2 121.0 mmHg (80.0-100.0) H 07/06/17 09:49 HCO3 24.2 mEq/L (20.0-26.0) 07/06/17 09:49 Base Excess -1.0 mEq/L (-3.0-3.0) 07/06/17 09:49 O2 Saturation 99.0 % (92.0-100.0) 07/06/17 09:49 Darius Test YES 07/06/17 09:49 Vent Rate 14 07/06/17 09:49 Inspired O2 30 07/06/17 09:49 Tidal Volume 450 07/06/17 09:49 PEEP 5 07/06/17 09:49 Pressure (ins/psv/peep) 0 07/06/17 09:49 Critical Value Chase 07/06/17 09:49 Sodium 134 mEq/L (136-145) L 07/07/17 05:35 Potassium 2.5 mEq/L (3.5-5.1) L* D 07/07/17 05:35 Chloride 107 mEq/L (98-107) 07/07/17 05:35 Carbon Dioxide 19.3 mEq/L (21.0-31.0) L 07/07/17 05:35 Anion Gap 10.2 (7.0-16.0) 07/07/17 05:35 BUN 17 mg/dL (7-25) 07/07/17 05:35 Creatinine 0.8 mg/dL (0.6-1.2) 07/07/17 05:35 Est GFR ( Amer) TNP 07/07/17 05:35 Est GFR (Non-Af Amer) TNP 07/07/17 05:35 BUN/Creatinine Ratio 21.3 07/07/17 05:35 Glucose 174 mg/dL (70-105) H 07/07/17 05:35 Whole Bld Lactic Acid 3.99 mmol/L (0.60-1.99) H* 07/05/17 13:00 Calcium 7.6 mg/dL (8.6-10.3) L 07/07/17 05:35 Phosphorus 1.5 mg/dL (2.5-5.0) L 07/02/17 05:20 Magnesium 1.7 mg/dL (1.9-2.7) L 07/02/17 05:20 Iron 21 07/03/17 05:48 TIBC 131 07/03/17 05:48 Iron Saturation 16 07/03/17 05:48 Unsaturated IBC 110 07/03/17 05:48 Ferritin 334 ng/mL (15-150) H 07/03/17 05:48 Total Bilirubin 0.5 mg/dL (0.3-1.0) 07/05/17 06:05 AST 16 U/L (13-39) 07/05/17 06:05 ALT 8 U/L (7-52) 07/05/17 06:05 Alkaline Phosphatase 66 U/L (34-104) 07/05/17 06:05 Troponin I 0.09 ng/mL (0.01-0.05) H* D 07/04/17 05:50 B-Natriuretic Peptide 215.0 pg/mL (5.0-100.0) H 07/01/17 14:10 Total Protein 5.6 gm/dL (6.0-8.3) L 07/05/17 06:05 Albumin 2.6 gm/dL (3.7-5.3) L 07/05/17 06:05 Globulin 3.0 gm/dL 07/05/17 06:05 Albumin/Globulin Ratio 0.9 (1.0-1.8) L 07/05/17 06:05 Triglycerides 107 mg/dL (<150) 07/04/17 05:50 Cholesterol 114 mg/dL (<200) 07/04/17 05:50 LDL Cholesterol Direct 59 mg/dL (75-193) L 07/04/17 05:50 HDL Cholesterol 31 mg/dL (23-92) 07/04/17 05:50 TSH 1.46 uIU/ml (0.34-5.60) 07/04/17 05:50 Urine Source CATH 07/05/17 18:30 Urine Color YELLOW 07/05/17 18:30 Urine Clarity CLOUDY (CLEAR) H 07/05/17 18:30 Urine pH 5.5 (4.6 - 8.0) 07/05/17 18:30 Ur Specific [place] 1.025 (1.005-1.030) 07/05/17 18:30 Urine Protein 30 mg/dL (NEGATIVE) H 07/05/17 18:30 Urine Glucose (UA) NEGATIVE mg/dL (NEGATIVE) 07/05/17 18:30 Urine Ketones TRACE mg/dL (NEGATIVE) 07/05/17 18:30 Urine Blood SMALL (NEGATIVE) H 07/05/17 18:30 Urine Nitrate NEGATIVE (NEGATIVE) 07/05/17 18:30 Urine Bilirubin NEGATIVE (NEGATIVE) 07/05/17 18:30 Urine Urobilinogen 0.2 E.U./dL (0.2 - 1.0) 07/05/17 18:30 Ur Leukocyte Esterase LARGE (NEGATIVE) H 07/05/17 18:30 Urine RBC 2-5 /hpf (0-5) 07/05/17 18:30 Urine WBC >100 /hpf (0-5) H 07/05/17 18:30 Ur Epithelial Cells FEW /lpf (FEW) 07/05/17 18:30 Urine Bacteria FEW /hpf (NONE SEEN) 07/05/17 18:30 Urine Yeast FEW /hpf (NONE SEEN) H 07/05/17 18:30 Vancomycin Trough 13.0 ug/mL (5-10) H 07/07/17 05:35 - Physical Exam Vitals and I&O: Vital Signs Temp 98.4 F 07/07/17 04:00 Pulse 104 07/07/17 06:00 Resp 24 07/07/17 06:00 BP 135/67 07/07/17 06:00 Pulse Ox 100 07/07/17 06:00 Intake & Output 07/06/17 07/07/17 07/07/17 18:59 06:59 18:59 Intake Total 355.682 710 Output Total 250 225 Balance 105.682 485 Weight (lbs) 51.256 kg 51.256 kg Intake: Intake, IV Amount 255.682 350 Amiodarone 450 mg In 205.682 Sodium Chloride 0.9% 250 ml @ Titrate IV TITR [facility] Rx#:[id number] Piperacillin Sodium/ 50 100 Tazobact 2.25 gm In Sodium Chloride 0.9% 50 ml @ 100 mls/hr IV Q6HR [facility] Rx#:[id number] Vancomycin HCl 1 gm In 250 Sodium Chloride 0.9% 250 ml @ 165 mls/hr IV Q24HR@ 0800 [facility] Rx#:[id number] Tube Feeding 240 Other 100 120 Output: Urine 250 225 Other: # Bowel Movements 1 Weight Source Bedscale Bedscale Active Medications: Current Medications Acetaminophen (Tylenol) 650 mg PO Q4H PRN PRN Reason: Fever > 101 Stop: 08/30/17 22:06 Last Admin: 07/06/17 18:25 Dose: 650 mg Acetaminophen/Hydrocodone Bitart ([place] 10 Mg/325 Mg) 1 tab PO Q6H PRN PRN Reason: mod pain Stop: 08/30/17 22:07 Albuterol/Ipratropium (Duoneb Neb) 3 ml HHN Q4HRT PRN PRN Reason: Wheezing Stop: 08/30/17 22:13 Albuterol/Ipratropium (Duoneb Neb) 3 ml HHN Q6HRT [facility] Stop: 08/31/17 00:59 Last Admin: 07/07/17 00:48 Dose: 3 ml Ascorbic Acid (Vitamin C) 500 mg PO DAILY [facility] Stop: 08/31/17 08:59 Last Admin: 07/07/17 09:17 Dose: 500 mg Bisacodyl (Dulcolax 10 Mg Supp) 10 mg RC HS PRN PRN Reason: BOWEL CARE MANAGEMENT Stop: 08/30/17 22:18 Budesonide (Pulmicort) 0.5 mg HHN BIDRT [facility] Stop: 08/31/17 18:59 Last Admin: 07/06/17 18:47 Dose: 0.5 mg Chlorhexidine Gluconate (Peridex) 15 ml MM 0800,2000 [facility] Stop: 09/03/17 19:59 Last Admin: 07/07/17 09:17 Dose: 15 ml Cyproheptadine HCl (Periactin) 4 mg PO BID [facility] Stop: 08/31/17 08:59 Last Admin: 07/06/17 17:00 Dose: 4 mg Docusate Sodium (Colace) 100 mg PO BID [facility] Stop: 08/31/17 08:59 Last Admin: 07/07/17 09:17 Dose: 100 mg Ferrous Sulfate (Iron) 325 mg PO BID [facility]ADI Stop: 08/31/17 08:59 Last Admin: 07/07/17 09:17 Dose: 325 mg Folic Acid (Folate) 1 mg PO DAILY [facility] Stop: 08/31/17 08:59 Last Admin: 07/07/17 09:17 Dose: 1 mg Piperacillin Sod/Tazobactam (Sod 2.25 gm/ Sodium Chloride) 50 mls @ 100 mls/hr IV Q6HR [facility] Stop: 08/31/17 00:00 Last Admin: 07/07/17 05:32 Dose: 100 mls/hr Dextrose/Sodium Chloride (D5-0.45ns) 1,000 mls @ 75 mls/hr IV .[id number] [facility] Stop: 09/01/17 11:59 Last Admin: 07/06/17 22:34 Dose: 75 mls/hr Amiodarone HCl 450 mg/ Sodium (Chloride) 259 mls @ 0 mls/hr IV TITR SHADI; Titrate PRN Reason: Protocol Stop: 09/03/17 16:29 Last Titration: 07/06/17 08:00 Dose: 0 mg/min, 0 mls/hr Norepinephrine Bitartrate 4 mg (/ Sodium Chloride) 254 mls @ 0 mls/hr IV TITR SHADI; Titrate PRN Reason: Protocol Stop: 09/03/17 16:29 Vancomycin HCl 1 gm/ Sodium (Chloride) 250 mls @ 165 mls/hr IV Q24HR@0800 [facility] Stop: 09/04/17 09:59 Last Infusion: 07/06/17 19:47 Dose: Infused Potassium Chloride (Potassium Chloride) 20 meq in 100 mls @ 50 mls/hr IV Q2H [facility] Stop: 07/07/17 11:38 Last Admin: 07/07/17 09:18 Dose: 50 mls/hr Lactobacillus Rhamnosus (Culturelle 15b) 1 each PO DAILY [facility] Stop: 09/01/17 08:59 Last Admin: 07/07/17 09:17 Dose: 1 each Lactulose (Cephulac) 20 gm PO QID PRN PRN Reason: Constipation Stop: 08/30/17 22:18 Lorazepam (Ativan) 1 mg IVP Q4HR PRN; Protocol PRN Reason: Anxiety Stop: 09/04/17 08:31 Last Admin: 07/06/17 21:16 Dose: 1 mg Miscellaneous (Probiotic Screen) 1 ea PRN PRN PRN Reason: PROTOCOL Stop: 09/01/17 08:44 Miscellaneous (Vancomycin Iv Per Pharmacy) 1 [facility] PRN PRN PRN Reason: PROTOCOL Stop: 09/03/17 11:06 Morphine Sulfate (Morphine) 2 mg IVP Q4H PRN PRN Reason: moderate pain Stop: 08/30/17 22:07 Last Admin: 07/05/17 22:30 Dose: 2 mg Morphine Sulfate (Morphine) 2 mg IVP Q4HR PRN PRN Reason: PAIN Stop: 08/30/17 22:19 Multivitamins/Vitamin C (Theragran) 1 tab PO DAILY [facility]AD[facility] Stop: 08/31/17 08:59 Last Admin: 07/07/17 09:17 Dose: 1 tab Nicotine (Nicotine Transdermal System) 14 mg TD DAILY [facility] Stop: 09/04/17 08:59 Last Admin: 07/06/17 12:00 Dose: 14 mg Pantoprazole Sodium (Protonix) 40 mg IVP DAILY [facility] Stop: 09/04/17 08:59 Last Admin: 07/07/17 09:17 Dose: 40 mg Rivaroxaban (Xarelto) 10 mg PO DAILY [facility] Stop: 09/03/17 08:59 Last Admin: 07/07/17 09:17 Dose: 10 mg General: Other (intubated, cachectic appearing, not resposive) HEENT: Atraumatic, Other (no dc) Neck: Supple, no JVD, no Thyromegaly Cardiovascular: Regular rate, Other (in A fib) Lungs: Other (Intubated, has bl rales) Abdomen: Bowel sounds, Soft, no Tender, no Hepatomegaly Extremities: Edema, no Clubbing Neurological: Other (Pt unable to participate in test) Skin: no Rash Psych/Mental Status: Other (no psychosis) - Procedures Procedures: Procedures Procedure Code Date INSERT EMERGENCY AIRWAY 10955 07/01/17 INSERTION OF ENDOTRACHEAL AIRWAY INTO [place], VIA OPENING [id number] 07/01/17 RESPIRATORY VENTILATION, LESS THAN 24 CONSECUTIVE HOURS [id number] 07/01/17 VENT MGMT INPAT INIT DAY 17726 07/01/17 Assessment/Plan - Problem List Patient Problems: All Active Problems WEAKESS AND POOR ORAL INTAKE (Acute) - Assessment Assessment: Septic shock A fib with RVR Fail to thrive Stage 4 lung ca Sepsis due to E Coli UTI ME Ch pain syn Anemia of ch ill Hypernatremia Hypokalemia Type 2 RI A fib - Plan Plan: Pt holds a poor progonosis. Been trying to communicate poor prognosis to the son. He wants "everything done. " Cardio, Pulm, and Heme Onc seeing pt, all of whom agree with comfort care/ hospice. On IV Zosyn and Vanco. Has been on Amiodarone and Levphed drip in ICU-now off as off 07/06/17. Intubated on 07/05/17. Elec corrected. I's and O's reviewed. Vent settings reviewed. Vent: AC mode, rate 12 PEEP 5 FiO2 30% TV 450 Nutritional Asmnt/Malnutr-PDOC - Dietary Evaluation Malnutrition Findings (Please click <Entered> for more info): Nutritional Asmnt/Malnutrition Start: 07/03/17 13: 22 Text: Status: Complete Freq: Document 07/03/17 13:22 MMULJENN (Rec: 07/03/17 13:35 [facility] Nutritional Asmnt/Malnutrition Patient General Information Nutritional Screening Consult Diagnosis UTI, Failure to thrive, hypokalemia Pertinent Medical Hx/Surgical Hx CAD, HTN, COPD, Stage 4 lung cancer, peripheral neuropathy, constipation, GERD, anxiety, low back pain Subjective Information Consult received for Failure to Thrive. Current Diet Order/ Nutrition Support Regular diet, pureed with mechaical soft Patient / S.O Not Indicated Pertinent Medications Vitamin C, dulcolax, D5-0.45 NS @ 75 ml/hr, colace, iron, folate, lactulose, theragran Pertinent Labs (07/02) P 1.5, Mg 1.7, albumin 2.9 Nutritional Hx/Data Height 1.6 m Height (Calculated Centimeters) 160.0 Current Weight (lbs) 54.885 kg Weight (Calculated Kilograms) 54.9 Weight (Calculated Grams) 22483.7 [place] Body Weight 115 % [place] Body Weight 105 Body Mass Index (BMI) 21.4 Recent Weight Change No Weight Status Approriate GI Symptoms GI Symptoms None Last BM Prior to admission Difficult in: None Food Allergies No Cultural/Ethnic/Zoroastrianism Belief None indicated Skin Integrity/Comment: Pradeep 15 Current %PO Poor (25-49%) Estimated Nutritional Goals BEE in Kcals: Using Current wt Calories/Kcals/Kg 55kg CBW (25-30kcal/kg) Kcals Calculated 1492-6188 kcal/day Protein: Using Current wt Protein g/k-1.2 gm/kg Protein Calculated 55-65 gm/day Fluid: ml 8329-5638 ml/day (1 ml/kcal) Nutritional Problem 2. Problem Problem Inadequate oral intake related to Etiology poor appetite aeb Signs/Symptoms: meeting <75% of estimated nutrient needs 1. Problem Problem Altered nutrition related lab values related to Etiology electrolyte imbalance aeb Signs/Symptoms: P 1.5, Mg 1.7 Intervention/Recommendation Comments 1. Continue pureed diet as tolerated by patient. 2. RN To assist with feedings and encourage oral intake. 3. Consider adding Boost plus between meals to optimize calorie and protein intake. Expected Outcomes/Goals Expected Outcomes/Goals Oral intake to meet >75% of needs, weight stable, nutrition labs WNL F/U MR 07/06-
[2017-07-07] MEDS: Nicotine 14 mg/24 hr Tdm TD SCH (09:53)
--- NOTE | 2017-07-07 10:13 | General Progress Note ---
Subjective - Review of Systems Service Date: 07/07/17 Objective - Results Result Diagrams: 07/07/17 05:35 07/07/17 05:35 Recent Labs: Laboratory Last Values WBC 17.7 Th/cmm (4.8-10.8) H 07/07/17 05:35 RBC 2.75 Mil/cmm (3.80-5.20) L 07/07/17 05:35 Hgb 8.2 gm/dL (12-16) L 07/07/17 05:35 Hct 24.1 % (41.0-60) L 07/07/17 05:35 MCV 87.5 fl (81-100) 07/07/17 05:35 MCH 29.7 pg (27.0-31.0) 07/07/17 05:35 MCHC Differential 33.9 pg (28.0-36.0) 07/07/17 05:35 RDW 16.0 % (11.5-20.0) 07/07/17 05:35 Plt Count 307 Th/cmm (150-400) 07/07/17 05:35 MPV 7.4 fl 07/07/17 05:35 Neutrophils % 90.2 % (40.0-80.0) H 07/07/17 05:35 Band Neutrophils % 4 % (0-10) 07/06/17 04:56 Lymphocytes % 3.8 % (20.0-50.0) L 07/07/17 05:35 Monocytes % 4.8 % (2.0-10.0) 07/07/17 05:35 Eosinophils % 1.0 % (0.0-5.0) 07/07/17 05:35 Basophils % 0.2 % (0.0-2.0) 07/07/17 05:35 Neutrophils (Manual) 84 % (40-80) H 07/06/17 04:56 Lymphocytes 6 % (20-50) L 07/06/17 04:56 Monocytes 6 % (2-10) 07/06/17 04:56 Eosinophils 1 % (0-5) 07/05/17 06:05 Basophils 0 % (0-3) 07/01/17 14:10 Specimen Source Arterial 07/06/17 09:49 Sample Site rr 07/06/17 09:49 pH 7.47 (7.35-7.45) H 07/06/17 09:49 pCO2 30.0 mmHg (35.0-45.0) L 07/06/17 09:49 pO2 121.0 mmHg (80.0-100.0) H 07/06/17 09:49 HCO3 24.2 mEq/L (20.0-26.0) 07/06/17 09:49 Base Excess -1.0 mEq/L (-3.0-3.0) 07/06/17 09:49 O2 Saturation 99.0 % (92.0-100.0) 07/06/17 09:49 Darius Test YES 07/06/17 09:49 Vent Rate 14 07/06/17 09:49 Inspired O2 30 07/06/17 09:49 Tidal Volume 450 07/06/17 09:49 PEEP 5 07/06/17 09:49 Pressure (ins/psv/peep) 0 07/06/17 09:49 Critical Value Chase 07/06/17 09:49 Sodium 134 mEq/L (136-145) L 07/07/17 05:35 Potassium 2.5 mEq/L (3.5-5.1) L* D 07/07/17 05:35 Chloride 107 mEq/L (98-107) 07/07/17 05:35 Carbon Dioxide 19.3 mEq/L (21.0-31.0) L 07/07/17 05:35 Anion Gap 10.2 (7.0-16.0) 07/07/17 05:35 BUN 17 mg/dL (7-25) 07/07/17 05:35 Creatinine 0.8 mg/dL (0.6-1.2) 07/07/17 05:35 Est GFR ( Amer) TNP 07/07/17 05:35 Est GFR (Non-Af Amer) TNP 07/07/17 05:35 BUN/Creatinine Ratio 21.3 07/07/17 05:35 Glucose 174 mg/dL (70-105) H 07/07/17 05:35 Whole Bld Lactic Acid 3.99 mmol/L (0.60-1.99) H* 07/05/17 13:00 Calcium 7.6 mg/dL (8.6-10.3) L 07/07/17 05:35 Phosphorus 1.5 mg/dL (2.5-5.0) L 07/02/17 05:20 Magnesium 1.7 mg/dL (1.9-2.7) L 07/02/17 05:20 Iron 21 07/03/17 05:48 TIBC 131 07/03/17 05:48 Iron Saturation 16 07/03/17 05:48 Unsaturated IBC 110 07/03/17 05:48 Ferritin 334 ng/mL (15-150) H 07/03/17 05:48 Total Bilirubin 0.5 mg/dL (0.3-1.0) 07/05/17 06:05 AST 16 U/L (13-39) 07/05/17 06:05 ALT 8 U/L (7-52) 07/05/17 06:05 Alkaline Phosphatase 66 U/L (34-104) 07/05/17 06:05 Troponin I 0.09 ng/mL (0.01-0.05) H* D 07/04/17 05:50 B-Natriuretic Peptide 215.0 pg/mL (5.0-100.0) H 07/01/17 14:10 Total Protein 5.6 gm/dL (6.0-8.3) L 07/05/17 06:05 Albumin 2.6 gm/dL (3.7-5.3) L 07/05/17 06:05 Globulin 3.0 gm/dL 07/05/17 06:05 Albumin/Globulin Ratio 0.9 (1.0-1.8) L 07/05/17 06:05 Triglycerides 107 mg/dL (<150) 07/04/17 05:50 Cholesterol 114 mg/dL (<200) 07/04/17 05:50 LDL Cholesterol Direct 59 mg/dL (75-193) L 07/04/17 05:50 HDL Cholesterol 31 mg/dL (23-92) 07/04/17 05:50 TSH 1.46 uIU/ml (0.34-5.60) 07/04/17 05:50 Urine Source CATH 07/05/17 18:30 Urine Color YELLOW 07/05/17 18:30 Urine Clarity CLOUDY (CLEAR) H 07/05/17 18:30 Urine pH 5.5 (4.6 - 8.0) 07/05/17 18:30 Ur Specific [place] 1.025 (1.005-1.030) 07/05/17 18:30 Urine Protein 30 mg/dL (NEGATIVE) H 07/05/17 18:30 Urine Glucose (UA) NEGATIVE mg/dL (NEGATIVE) 07/05/17 18:30 Urine Ketones TRACE mg/dL (NEGATIVE) 07/05/17 18:30 Urine Blood SMALL (NEGATIVE) H 07/05/17 18:30 Urine Nitrate NEGATIVE (NEGATIVE) 07/05/17 18:30 Urine Bilirubin NEGATIVE (NEGATIVE) 07/05/17 18:30 Urine Urobilinogen 0.2 E.U./dL (0.2 - 1.0) 07/05/17 18:30 Ur Leukocyte Esterase LARGE (NEGATIVE) H 07/05/17 18:30 Urine RBC 2-5 /hpf (0-5) 07/05/17 18:30 Urine WBC >100 /hpf (0-5) H 07/05/17 18:30 Ur Epithelial Cells FEW /lpf (FEW) 07/05/17 18:30 Urine Bacteria FEW /hpf (NONE SEEN) 07/05/17 18:30 Urine Yeast FEW /hpf (NONE SEEN) H 07/05/17 18:30 Vancomycin Trough 13.0 ug/mL (5-10) H 07/07/17 05:35 - Physical Exam Vitals and I&O: Vital Signs Temp 98.4 F 07/07/17 04:00 Pulse 104 07/07/17 06:00 Resp 24 07/07/17 06:00 BP 135/67 07/07/17 06:00 Pulse Ox 100 07/07/17 06:00 Intake & Output 07/06/17 07/07/17 07/07/17 18:59 06:59 18:59 Intake Total 355.682 710 Output Total 250 225 Balance 105.682 485 Weight (lbs) 51.256 kg 51.256 kg Intake: Intake, IV Amount 255.682 350 Amiodarone 450 mg In 205.682 Sodium Chloride 0.9% 250 ml @ Titrate IV TITR [facility] Rx#:[id number] Piperacillin Sodium/ 50 100 Tazobact 2.25 gm In Sodium Chloride 0.9% 50 ml @ 100 mls/hr IV Q6HR [facility] Rx#:[id number] Vancomycin HCl 1 gm In 250 Sodium Chloride 0.9% 250 ml @ 165 mls/hr IV Q24HR@ 0800 [facility] Rx#:[id number] Tube Feeding 240 Other 100 120 Output: Urine 250 225 Other: # Bowel Movements 1 Weight Source Bedscale Bedscale Active Medications: Current Medications Acetaminophen (Tylenol) 650 mg PO Q4H PRN PRN Reason: Fever > 101 Stop: 08/30/17 22:06 Last Admin: 07/06/17 18:25 Dose: 650 mg Acetaminophen/Hydrocodone Bitart ([place] 10 Mg/325 Mg) 1 tab PO Q6H PRN PRN Reason: mod pain Stop: 08/30/17 22:07 Albuterol/Ipratropium (Duoneb Neb) 3 ml HHN Q4HRT PRN PRN Reason: Wheezing Stop: 08/30/17 22:13 Albuterol/Ipratropium (Duoneb Neb) 3 ml HHN Q6HRT [facility] Stop: 08/31/17 00:59 Last Admin: 07/07/17 00:48 Dose: 3 ml Ascorbic Acid (Vitamin C) 500 mg PO DAILY [facility] Stop: 08/31/17 08:59 Last Admin: 07/07/17 09:17 Dose: 500 mg Bisacodyl (Dulcolax 10 Mg Supp) 10 mg RC HS PRN PRN Reason: BOWEL CARE MANAGEMENT Stop: 08/30/17 22:18 Budesonide (Pulmicort) 0.5 mg HHN BIDRT [facility] Stop: 08/31/17 18:59 Last Admin: 07/06/17 18:47 Dose: 0.5 mg Chlorhexidine Gluconate (Peridex) 15 ml MM 0800,1999 [facility] Stop: 09/03/17 19:59 Last Admin: 07/07/17 09:17 Dose: 15 ml Cyproheptadine HCl (Periactin) 4 mg PO BID [facility] Stop: 08/31/17 08:59 Last Admin: 07/06/17 17:00 Dose: 4 mg Docusate Sodium (Colace) 100 mg PO BID [facility] Stop: 08/31/17 08:59 Last Admin: 07/07/17 09:17 Dose: 100 mg Ferrous Sulfate (Iron) 325 mg PO BID [facility] Stop: 08/31/17 08:59 Last Admin: 07/07/17 09:17 Dose: 325 mg Folic Acid (Folate) 1 mg PO DAILY [facility] Stop: 08/31/17 08:59 Last Admin: 07/07/17 09:17 Dose: 1 mg Piperacillin Sod/Tazobactam (Sod 2.25 gm/ Sodium Chloride) 50 mls @ 100 mls/hr IV Q6HR [facility] Stop: 08/31/17 00:00 Last Admin: 07/07/17 05:32 Dose: 100 mls/hr Dextrose/Sodium Chloride (D5-0.45ns) 1,000 mls @ 75 mls/hr IV .[id number] [facility] Stop: 09/01/17 11:59 Last Admin: 07/06/17 22:34 Dose: 75 mls/hr Amiodarone HCl 450 mg/ Sodium (Chloride) 259 mls @ 0 mls/hr IV TITR [facility]; Titrate PRN Reason: Protocol Stop: 09/03/17 16:29 Last Titration: 07/06/17 08:00 Dose: 0 mg/min, 0 mls/hr Norepinephrine Bitartrate 4 mg (/ Sodium Chloride) 254 mls @ 0 mls/hr IV TITR [facility]; Titrate PRN Reason: Protocol Stop: 09/03/17 16:29 Vancomycin HCl 1 gm/ Sodium (Chloride) 250 mls @ 165 mls/hr IV Q24HR@0800 [facility] Stop: 09/04/17 09:59 Last Admin: 07/07/17 09:44 Dose: 165 mls/hr Potassium Chloride (Potassium Chloride) 20 meq in 100 mls @ 50 mls/hr IV Q2H [facility] Stop: 07/07/17 11:38 Last Admin: 07/07/17 09:18 Dose: 50 mls/hr Lactobacillus Rhamnosus (Culturelle 15b) 1 each PO DAILY [facility] Stop: 09/01/17 08:59 Last Admin: 07/07/17 09:17 Dose: 1 each Lactulose (Cephulac) 20 gm PO QID PRN PRN Reason: Constipation Stop: 08/30/17 22:18 Lorazepam (Ativan) 1 mg IVP Q4HR PRN; Protocol PRN Reason: Anxiety Stop: 09/04/17 08:31 Last Admin: 07/06/17 21:16 Dose: 1 mg Miscellaneous (Probiotic Screen) 1 ea MC PRN PRN PRN Reason: PROTOCOL Stop: 09/01/17 08:44 Miscellaneous (Vancomycin Iv Per Pharmacy) 1 ea MC PRN PRN PRN Reason: PROTOCOL Stop: 09/03/17 11:06 Morphine Sulfate (Morphine) 2 mg IVP Q4H PRN PRN Reason: moderate pain Stop: 08/30/17 22:07 Last Admin: 07/05/17 22:30 Dose: 2 mg Morphine Sulfate (Morphine) 2 mg IVP Q4HR PRN PRN Reason: PAIN Stop: 08/30/17 22:19 Multivitamins/Vitamin C (Theragran) 1 tab PO DAILY [facility] Stop: 08/31/17 08:59 Last Admin: 07/07/17 09:17 Dose: 1 tab Nicotine (Nicotine Transdermal System) 14 mg TD DAILY [facility] Stop: 09/04/17 08:59 Last Admin: 07/07/17 09:53 Dose: 14 mg Pantoprazole Sodium (Protonix) 40 mg IVP DAILY [facility] Stop: 09/04/17 08:59 Last Admin: 07/07/17 09:17 Dose: 40 mg Rivaroxaban (Xarelto) 10 mg PO DAILY [facility] Stop: 09/03/17 08:59 Last Admin: 07/07/17 09:17 Dose: 10 mg General: Other (intubated, cachectic appearing, not resposive) HEENT: Atraumatic, Other (no dc) Neck: Supple, no JVD, no Thyromegaly Cardiovascular: Regular rate, Other (in A fib) Lungs: Other (Intubated, has bl rales) Abdomen: Bowel sounds, Soft, no Tender, no Hepatomegaly Extremities: Edema, no Clubbing Neurological: Other (Pt unable to participate in test) Skin: no Rash Psych/Mental Status: Other (no psychosis) - Procedures Procedures: Procedures Procedure Code Date INSERT EMERGENCY AIRWAY 84036 07/01/17 INSERTION OF ENDOTRACHEAL AIRWAY INTO [place], VIA OPENING [id number] 07/01/17 RESPIRATORY VENTILATION, LESS THAN 24 CONSECUTIVE HOURS [id number] 07/01/17 VENT MGMT INPAT IN DAY 06052 07/01/17 Assessment/Plan - Problem List Patient Problems: All Active Problems WEAKESS AND POOR ORAL INTAKE (Acute) - Assessment Assessment: * Advanced metastatic cancer * poor functional status * Anemia likely of chronic disease * Respiratory failure s/p intubation 4/17 iron studies cw anemia of chronic disease. continue anticoagulation Nutritional Asmnt/Malnutr-PDOC - Dietary Evaluation Malnutrition Findings (Please click <Entered> for more info): Nutritional Asmnt/Malnutrition Start: 07/03/17 13: 22 Text: Status: Complete Freq: Document 07/03/17 13:22 MMKENY (Rec: 07/03/17 13:35 [email or web address] ELLER- [email or web address]) Nutritional Asmnt/Malnutrition Patient General Information Nutritional Screening Consult Diagnosis UTI, Failure to thrive, hypokalemia Pertinent Medical Hx/Surgical Hx CAD, HTN, COPD, Stage 4 lung cancer, peripheral neuropathy, constipation, GERD, anxiety, low back pain Subjective Information Consult received for Failure to Thrive. Current Diet Order/ Nutrition Support Regular diet, pureed with mechaical soft Patient / S.O Not Indicated Pertinent Medications Vitamin C, dulcolax, D5-0.45 NS @ 75 ml/hr, colace, iron, folate, lactulose, theragran Pertinent Labs (07/02) P 1.5, Mg 1.7, albumin 2.9 Nutritional Hx/Data Height 1.6 m Height (Calculated Centimeters) 160.0 Current Weight (lbs) 54.885 kg Weight (Calculated Kilograms) 54.9 Weight (Calculated Grams) 01249.7 [place] Body Weight 115 % [place] Body Weight 105 Body Mass Index (BMI) 21.4 Recent Weight Change No Weight Status Approriate GI Symptoms GI Symptoms None Last BM Prior to admission Difficult in: None Food Allergies No Cultural/Ethnic/[place] Belief None indicated Skin Integrity/Comment: Pradeep Cook Current %PO Poor (25-49%) Estimated Nutritional Goals BEE in Kcals: Using Current wt Calories/Kcals/Kg 55kg CBW (25-30kcal/kg) Kcals Calculated 2288-1819 kcal/day Protein: Using Current wt Protein g/k-1.2 gm/kg Protein Calculated 55-65 gm/day Fluid: ml 3530-6597 ml/day (1 ml/kcal) Nutritional Problem 2. Problem Problem Inadequate oral intake related to Etiology poor appetite aeb Signs/Symptoms: meeting <75% of estimated nutrient needs 1. Problem Problem Altered nutrition related lab values related to Etiology electrolyte imbalance aeb Signs/Symptoms: P 1.5, Mg 1.7 Intervention/Recommendation Comments 1. Continue pureed diet as tolerated by patient. 2. RN To assist with feedings and encourage oral intake. 3. Consider adding Boost plus between meals to optimize calorie and protein intake. Expected Outcomes/Goals Expected Outcomes/Goals Oral intake to meet >75% of needs, weight stable, nutrition labs WNL F/U MR
--- NOTE | 2017-07-07 14:14 | Infectious Disease Prog Note ---
Infectious Disease Subjective - Review of Systems Service Date: 07/07/17 Subjective: There is no new change. Patient remains intubated orally, on the ventilator support. Infectious Disease Objective - Results Result Diagrams: 07/07/17 05:35 07/07/17 05:35 Recent Labs: Laboratory Last Values WBC 17.7 Th/cmm (4.8-10.8) H 07/07/17 05:35 RBC 2.75 Mil/cmm (3.80-5.20) L 07/07/17 05:35 Hgb 8.2 gm/dL (12-16) L 07/07/17 05:35 Hct 24.1 % (41.0-60) L 07/07/17 05:35 MCV 87.5 fl (81-100) 07/07/17 05:35 MCH 29.7 pg (27.0-31.0) 07/07/17 05:35 MCHC Differential 33.9 pg (28.0-36.0) 07/07/17 05:35 RDW 16.0 % (11.5-20.0) 07/07/17 05:35 Plt Count 307 Th/cmm (150-400) 07/07/17 05:35 MPV 7.4 fl 07/07/17 05:35 Neutrophils % 90.2 % (40.0-80.0) H 07/07/17 05:35 Band Neutrophils % 4 % (0-10) 07/06/17 04:56 Lymphocytes % 3.8 % (20.0-50.0) L 07/07/17 05:35 Monocytes % 4.8 % (2.0-10.0) 07/07/17 05:35 Eosinophils % 1.0 % (0.0-5.0) 07/07/17 05:35 Basophils % 0.2 % (0.0-2.0) 07/07/17 05:35 Neutrophils (Manual) 84 % (40-80) H 07/06/17 04:56 Lymphocytes 6 % (20-50) L 07/06/17 04:56 Monocytes 6 % (2-10) 07/06/17 04:56 Eosinophils 1 % (0-5) 07/05/17 06:05 Basophils 0 % (0-3) 07/01/17 14:10 Specimen Source Arterial 07/06/17 09:49 Sample Site rr 07/06/17 09:49 pH 7.47 (7.35-7.45) H 07/06/17 09:49 pCO2 30.0 mmHg (35.0-45.0) L 07/06/17 09:49 pO2 121.0 mmHg (80.0-100.0) H 07/06/17 09:49 HCO3 24.2 mEq/L (20.0-26.0) 07/06/17 09:49 Base Excess -1.0 mEq/L (-3.0-3.0) 07/06/17 09:49 O2 Saturation 99.0 % (92.0-100.0) 07/06/17 09:49 Darius Test YES 07/06/17 09:49 Vent Rate 14 07/06/17 09:49 Inspired O2 30 07/06/17 09:49 Tidal Volume 450 07/06/17 09:49 PEEP 5 07/06/17 09:49 Pressure (ins/psv/peep) 0 07/06/17 09:49 Critical Value Chase 07/06/17 09:49 Sodium 134 mEq/L (136-145) L 07/07/17 05:35 Potassium 2.5 mEq/L (3.5-5.1) L* D 07/07/17 05:35 Chloride 107 mEq/L (98-107) 07/07/17 05:35 Carbon Dioxide 19.3 mEq/L (21.0-31.0) L 07/07/17 05:35 Anion Gap 10.2 (7.0-16.0) 07/07/17 05:35 BUN 17 mg/dL (7-25) 07/07/17 05:35 Creatinine 0.8 mg/dL (0.6-1.2) 07/07/17 05:35 Est GFR ( Amer) TNP 07/07/17 05:35 Est GFR (Non-Af Amer) TNP 07/07/17 05:35 BUN/Creatinine Ratio 21.3 07/07/17 05:35 Glucose 174 mg/dL (70-105) H 07/07/17 05:35 Whole Bld Lactic Acid 3.99 mmol/L (0.60-1.99) H* 07/05/17 13:00 Calcium 7.6 mg/dL (8.6-10.3) L 07/07/17 05:35 Phosphorus 1.5 mg/dL (2.5-5.0) L 07/02/17 05:20 Magnesium 1.7 mg/dL (1.9-2.7) L 07/02/17 05:20 Iron 21 07/03/17 05:48 TIBC 131 07/03/17 05:48 Iron Saturation 16 07/03/17 05:48 Unsaturated IBC 110 07/03/17 05:48 Ferritin 334 ng/mL (15-150) H 07/03/17 05:48 Total Bilirubin 0.5 mg/dL (0.3-1.0) 07/05/17 06:05 AST 16 U/L (13-39) 07/05/17 06:05 ALT 8 U/L (7-52) 07/05/17 06:05 Alkaline Phosphatase 66 U/L (34-104) 07/05/17 06:05 Troponin I 0.09 ng/mL (0.01-0.05) H* D 07/04/17 05:50 B-Natriuretic Peptide 215.0 pg/mL (5.0-100.0) H 07/01/17 14:10 Total Protein 5.6 gm/dL (6.0-8.3) L 07/05/17 06:05 Albumin 2.6 gm/dL (3.7-5.3) L 07/05/17 06:05 Globulin 3.0 gm/dL 07/05/17 06:05 Albumin/Globulin Ratio 0.9 (1.0-1.8) L 07/05/17 06:05 Triglycerides 107 mg/dL (<150) 07/04/17 05:50 Cholesterol 114 mg/dL (<200) 07/04/17 05:50 LDL Cholesterol Direct 59 mg/dL (75-193) L 07/04/17 05:50 HDL Cholesterol 31 mg/dL (23-92) 07/04/17 05:50 TSH 1.46 uIU/ml (0.34-5.60) 07/04/17 05:50 Urine Source CATH 07/05/17 18:30 Urine Color YELLOW 07/05/17 18:30 Urine Clarity CLOUDY (CLEAR) H 07/05/17 18:30 Urine pH 5.5 (4.6 - 8.0) 07/05/17 18:30 Ur Specific [place] 1.025 (1.005-1.030) 07/05/17 18:30 Urine Protein 30 mg/dL (NEGATIVE) H 07/05/17 18:30 Urine Glucose (UA) NEGATIVE mg/dL (NEGATIVE) 07/05/17 18:30 Urine Ketones TRACE mg/dL (NEGATIVE) 07/05/17 18:30 Urine Blood SMALL (NEGATIVE) H 07/05/17 18:30 Urine Nitrate NEGATIVE (NEGATIVE) 07/05/17 18:30 Urine Bilirubin NEGATIVE (NEGATIVE) 07/05/17 18:30 Urine Urobilinogen 0.2 E.U./dL (0.2 - 1.0) 07/05/17 18:30 Ur Leukocyte Esterase LARGE (NEGATIVE) H 07/05/17 18:30 Urine RBC 2-5 /hpf (0-5) 07/05/17 18:30 Urine WBC >100 /hpf (0-5) H 07/05/17 18:30 Ur Epithelial Cells FEW /lpf (FEW) 07/05/17 18:30 Urine Bacteria FEW /hpf (NONE SEEN) 07/05/17 18:30 Urine Yeast FEW /hpf (NONE SEEN) H 07/05/17 18:30 Vancomycin Trough 13.0 ug/mL (5-10) H 07/07/17 05:35 - Physical Exam Vitals and I&O: Vital Signs Temp 96.7 F 07/07/17 12:00 Pulse 103 07/07/17 12:00 Resp 20 07/07/17 12:00 BP 153/73 07/07/17 12:00 Pulse Ox 100 07/07/17 12:00 Intake & Output 07/06/17 07/07/17 07/07/17 18:59 06:59 18:59 Intake Total 355.682 760 335 Output Total 250 225 Balance 105.682 535 335 Weight (lbs) 51.256 kg 51.256 kg Intake: Intake, IV Amount 255.682 400 335 Amiodarone 450 mg In 205.682 Sodium Chloride 0.9% 250 ml @ Titrate IV TITR [facility] Rx#:[id number] KCL 20mEq/100mL Premix 20 85 meq In 100 ml @ 50 mls/ hr IV Q2H [facility] Rx#: [id number] Piperacillin Sodium/ 50 150 Tazobact 2.25 gm In Sodium Chloride 0.9% 50 ml @ 100 mls/hr IV Q6HR [facility] Rx#:[id number] Vancomycin HCl 1 gm In 250 250 Sodium Chloride 0.9% 250 ml @ 165 mls/hr IV Q24HR@ 0800 [facility] Rx#:[id number] Tube Feeding 240 Other 100 120 Output: Urine 250 225 Other: # Bowel Movements 1 Stool Characteristics Soft Brown Weight Source Bedscale Bedscale Active Medications: Current Medications Acetaminophen (Tylenol) 650 mg PO Q4H PRN PRN Reason: Fever > 101 Stop: 08/30/17 22:06 Last Admin: 07/06/17 18:25 Dose: 650 mg Acetaminophen/Hydrocodone Bitart ([place] 10 Mg/325 Mg) 1 tab PO Q6H PRN PRN Reason: mod pain Stop: 08/30/17 22:07 Albuterol/Ipratropium (Duoneb Neb) 3 ml HHN Q4HRT PRN PRN Reason: Wheezing Stop: 08/30/17 22:13 Albuterol/Ipratropium (Duoneb Neb) 3 ml HHN Q6HRT [facility] Stop: 08/31/17 00:59 Last Admin: 07/07/17 07:30 Dose: 3 ml Ascorbic Acid (Vitamin C) 500 mg PO DAILY [facility] Stop: 08/31/17 08:59 Last Admin: 07/07/17 09:17 Dose: 500 mg Bisacodyl (Dulcolax 10 Mg Supp) 10 mg RC HS PRN PRN Reason: BOWEL CARE MANAGEMENT Stop: 08/30/17 22:18 Budesonide (Pulmicort) 0.5 mg HHN BIDRT [facility] Stop: 08/31/17 18:59 Last Admin: 07/07/17 07:30 Dose: 0.5 mg Chlorhexidine Gluconate (Peridex) 15 ml MM 08,1999 [facility] Stop: 09/03/17 19:59 Last Admin: 07/07/17 09:17 Dose: 15 ml Cyproheptadine HCl (Periactin) 4 mg PO BID [facility] Stop: 08/31/17 08:59 Last Admin: 07/07/17 09:00 Dose: 4 mg Docusate Sodium (Colace) 100 mg PO BID [facility] Stop: 08/31/17 08:59 Last Admin: 07/07/17 09:17 Dose: 100 mg Ferrous Sulfate (Iron) 325 mg PO BID [facility] Stop: 08/31/17 08:59 Last Admin: 07/07/17 09:17 Dose: 325 mg Folic Acid (Folate) 1 mg PO DAILY [facility] Stop: 08/31/17 08:59 Last Admin: 07/07/17 09:17 Dose: 1 mg Piperacillin Sod/Tazobactam (Sod 2.25 gm/ Sodium Chloride) 50 mls @ 100 mls/hr IV Q6HR [facility] Stop: 08/31/17 00:00 Last Admin: 07/07/17 14:06 Dose: 100 mls/hr Dextrose/Sodium Chloride (D5-0.45ns) 1,000 mls @ 75 mls/hr IV .[id number] [facility] Stop: 09/01/17 11:59 Last Admin: 07/06/17 22:34 Dose: 75 mls/hr Amiodarone HCl 450 mg/ Sodium (Chloride) 259 mls @ 0 mls/hr IV TITR [facility]; Titrate PRN Reason: Protocol Stop: 09/03/17 16:29 Last Titration: 07/06/17 08:00 Dose: 0 mg/min, 0 mls/hr Norepinephrine Bitartrate 4 mg (/ Sodium Chloride) 254 mls @ 0 mls/hr IV TITR [facility]; Titrate PRN Reason: Protocol Stop: 09/03/17 16:29 Vancomycin HCl 1 gm/ Sodium (Chloride) 250 mls @ 165 mls/hr IV Q24HR@0800 [facility] Stop: 09/04/17 09:59 Last Infusion: 07/07/17 14:10 Dose: Infused Lactobacillus Rhamnosus (Culturelle 15b) 1 each PO DAILY SHADI Stop: 09/01/17 08:59 Last Admin: 07/07/17 09:17 Dose: 1 each Lactulose (Cephulac) 20 gm PO QID PRN PRN Reason: Constipation Stop: 08/30/17 22:18 Lorazepam (Ativan) 1 mg IVP Q4HR PRN; Protocol PRN Reason: Anxiety Stop: 09/04/17 08:31 Last Admin: 07/06/17 21:16 Dose: 1 mg Miscellaneous (Probiotic Screen) 1 ea MC PRN PRN PRN Reason: PROTOCOL Stop: 09/01/17 08:44 Miscellaneous (Vancomycin Iv Per Pharmacy) 1 ea PRN PRN PRN Reason: PROTOCOL Stop: 09/03/17 11:06 Morphine Sulfate (Morphine) 2 mg IVP Q4H PRN PRN Reason: moderate pain Stop: 08/30/17 22:07 Last Admin: 07/05/17 22:30 Dose: 2 mg Morphine Sulfate (Morphine) 2 mg IVP Q4HR PRN PRN Reason: PAIN Stop: 08/30/17 22:19 Multivitamins/Vitamin C (Theragran) 1 tab PO DAILY SHADI Stop: 08/31/17 08:59 Last Admin: 07/07/17 09:17 Dose: 1 tab Nicotine (Nicotine Transdermal System) 14 mg TD DAILY SHADI Stop: 09/04/17 08:59 Last Admin: 07/07/17 09:53 Dose: 14 mg Pantoprazole Sodium (Protonix) 40 mg IVP DAILY SHADI Stop: 09/04/17 08:59 Last Admin: 07/07/17 09:17 Dose: 40 mg Rivaroxaban (Xarelto) 10 mg PO DAILY SHADI Stop: 09/03/17 08:59 Last Admin: 07/07/17 09:17 Dose: 10 mg General: no acute distress, well developed, well nourished HEENT: atraumatic, normocephalic, PERRLA, EOMI Neck: supple, no thyromegaly Cardiovascular: S1S2, regular Lungs: clear to percussion, rhonchi Abdomen: soft, no tender, no distended Extremities: no cyanosis, no clubbing, no edema Neurological: awake, alert Skin: intact - Procedures Procedures: Procedures Procedure Code Date INSERT EMERGENCY AIRWAY 79929 07/01/17 INSERTION OF ENDOTRACHEAL AIRWAY INTO [place], VIA OPENING [id number] 07/01/17 RESPIRATORY VENTILATION, LESS THAN 24 CONSECUTIVE HOURS [id number] 07/01/17 VENT MGMT INPAT INIT DAY 46349 07/01/17 Infectious Disease Assmt/Plan - Problem List Patient Problems: All Active Problems WEAKESS AND POOR ORAL INTAKE (Acute) - Assessment Assessment: 1. Leukocytosis. Fever, sepsis. 2. Pneumonia. 3. Stage IV lung CA. 4. Protein calorie malnutrion, 5. VDRF. 6. ALTERED MENTAL STATUS. - Plan Plan: Continue Zosyn, and vancomycin IV. Nutritional Asmnt/Malnutr-PDOC - Dietary Evaluation Malnutrition Findings (Please click <Entered> for more info): Nutritional Asmnt/Malnutrition Start: 07/03/17 13: 22 Text: Status: Complete Freq: Document 07/03/17 13:22 [email or web address] (Rec: 07/03/17 13:35 [email or web address] [email or web address]- [email or web address]) Nutritional Asmnt/Malnutrition Patient General Information Nutritional Screening Consult Diagnosis UTI, Failure to thrive, hypokalemia Pertinent Medical Hx/Surgical Hx CAD, HTN, COPD, Stage 4 lung cancer, peripheral neuropathy, constipation, GERD, anxiety, low back pain Subjective Information Consult received for Failure to Thrive. Current Diet Order/ Nutrition Support Regular diet, pureed with mechaical soft Patient / S.O Not Indicated Pertinent Medications Vitamin C, dulcolax, D5-0.45 NS @ 75 ml/hr, colace, iron, folate, lactulose, theragran Pertinent Labs (07/02) P 1.5, Mg 1.7, albumin 2.9 Nutritional Hx/Data Height 1.6 m Height (Calculated Centimeters) 160.0 Current Weight (lbs) 54.885 kg Weight (Calculated Kilograms) 54.9 Weight (Calculated Grams) 17464.7 [place] Body Weight 115 % [place] Body Weight 105 Body Mass Index (BMI) 21.4 Recent Weight Change No Weight Status Approriate GI Symptoms GI Symptoms None Last BM Prior to admission Difficult in: None Food Allergies No Cultural/Ethnic/[place] Belief None indicated Skin Integrity/Comment: Pradeep 15 Current %PO Poor (25-49%) Estimated Nutritional Goals BEE in Kcals: Using Current wt Calories/Kcals/Kg 55kg CBW (25-30kcal/kg) Kcals Calculated 6133-0025 kcal/day Protein: Using Current wt Protein g/k-1.2 gm/kg Protein Calculated 55-65 gm/day Fluid: ml 3411-6291 ml/day (1 ml/kcal) Nutritional Problem 2. Problem Problem Inadequate oral intake related to Etiology poor appetite aeb Signs/Symptoms: meeting <75% of estimated nutrient needs 1. Problem Problem Altered nutrition related lab values related to Etiology electrolyte imbalance aeb Signs/Symptoms: P 1.5, Mg 1.7 Intervention/Recommendation Comments 1. Continue pureed diet as tolerated by patient. 2. RN To assist with feedings and encourage oral intake. 3. Consider adding Boost plus between meals to optimize calorie and protein intake. Expected Outcomes/Goals Expected Outcomes/Goals Oral intake to meet >75% of needs, weight stable, nutrition labs WNL F/U MR
[2017-07-07] MEDS: D5-0.45NS 1,000 ML IV SCH (15:45)
[2017-07-07] MEDS: Hydrocodone/APAP 10 mg/325 mg Tab PO PRN (20:53)
[2017-07-08] MEDS: Albuterol/Ipratropium Neb 3 ML AERS HHN SCH ×4 (01:13→19:45)
[2017-07-08] MEDS: D5-0.45NS 1,000 ML IV SCH ×2 (03:48→20:01)
[2017-07-08 05:36] LABS: HEMATOCRIT 26.5 % (41.0-60); HEMOGLOBIN 8.8 gm/dL (12-16); MEAN CELL VOLUME 87.4 fl (81-100); MEAN CORPUSCULAR HGB CONC 33.2 pg (28.0-36.0); MEAN PLATELET VOLUME 7.2 fl; PLATELET COUNT 317 Th/cmm (150-400); RED BLOOD COUNT 3.03 Mil/cmm (3.80-5.20); RED CELL DISTRIBUTION WIDTH 15.5 % (11.5-20.0)
[2017-07-08 05:44] LABS: MANUAL DIFF REQUIRED? YES; WHITE BLOOD COUNT 15.8 Th/cmm (4.8-10.8)
[2017-07-08 05:51] LABS: ANION GAP 10.4 (7.0-16.0); BUN - UREA NITROGEN 15 mg/dL (7-25); CARBON DIOXIDE 20.1 mEq/L (21.0-31.0); CHLORIDE 106 mEq/L (98-107); CREATININE - SERUM 0.7 mg/dL (0.6-1.2); GLUCOSE 150 mg/dL (70-105); POTASSIUM SERUM 3.5 mEq/L (3.5-5.1); SODIUM SERUM 133 mEq/L (136-145)
[2017-07-08 06:48] LABS: BAND NEUTROPHILE 1 % (0-10); BASOPHIL 0 % (0-3); EOSINOPHIL 2 % (0-5); LYMPHOCYTE 10 % (20-50); MONOCYTE 6 % (2-10); NEUTROPHILS 81 % (40-80); TOTAL CELLS COUNTED 100
[2017-07-08] MEDS: Budesonide 0.5 Mg/2 mL Ud HHN SCH ×2 (08:18→19:45)
--- NOTE | 2017-07-08 08:22 | General Progress Note ---
Subjective - Review of Systems Service Date: 07/08/17 Subjective: Pt seen and eval. In bed. Prior to being intubated, she could not hold up her head or feed herself. Incontinent. Seen by jayson, bren, and heme onc, all of whom agree with hospice care. Dr. Montanez discussed poor prog with son. No fevers or chills. WBC elevated, but improving. No falls. Pt went into A fib pm 07/04/16, and was transferred to ICU on digoxin. Intubated as of 07/05/17. Was on Amiodarone and Levophed drip, both of which are off as of 07/06/17. Pt is awake, but very weak. Objective - Results Result Diagrams: 07/08/17 05:10 07/08/17 05:10 Recent Labs: Laboratory Last Values WBC 15.8 Th/cmm (4.8-10.8) H 07/08/17 05:10 RBC 3.03 Mil/cmm (3.80-5.20) L 07/08/17 05:10 Hgb 8.8 gm/dL (12-16) L 07/08/17 05:10 Hct 26.5 % (41.0-60) L 07/08/17 05:10 MCV 87.4 fl (81-100) 07/08/17 05:10 MCH 29.0 pg (27.0-31.0) 07/08/17 05:10 MCHC Differential 33.2 pg (28.0-36.0) 07/08/17 05:10 RDW 15.5 % (11.5-20.0) 07/08/17 05:10 Plt Count 317 Th/cmm (150-400) 07/08/17 05:10 MPV 7.2 fl 07/08/17 05:10 Neutrophils % 90.2 % (40.0-80.0) H 07/07/17 05:35 Band Neutrophils % 1 % (0-10) 07/08/17 05:10 Lymphocytes % 3.8 % (20.0-50.0) L 07/07/17 05:35 Monocytes % 4.8 % (2.0-10.0) 07/07/17 05:35 Eosinophils % 1.0 % (0.0-5.0) 07/07/17 05:35 Basophils % 0.2 % (0.0-2.0) 07/07/17 05:35 Neutrophils (Manual) 81 % (40-80) H 07/08/17 05:10 Lymphocytes 10 % (20-50) L 07/08/17 05:10 Monocytes 6 % (2-10) 07/08/17 05:10 Eosinophils 2 % (0-5) 07/08/17 05:10 Basophils 0 % (0-3) 07/08/17 05:10 Specimen Source Arterial 07/06/17 09:49 Sample Site rr 07/06/17 09:49 pH 7.47 (7.35-7.45) H 07/06/17 09:49 pCO2 30.0 mmHg (35.0-45.0) L 07/06/17 09:49 pO2 121.0 mmHg (80.0-100.0) H 07/06/17 09:49 HCO3 24.2 mEq/L (20.0-26.0) 07/06/17 09:49 Base Excess -1.0 mEq/L (-3.0-3.0) 07/06/17 09:49 O2 Saturation 99.0 % (92.0-100.0) 07/06/17 09:49 Darius Test YES 07/06/17 09:49 Vent Rate 14 07/06/17 09:49 Inspired O2 30 07/06/17 09:49 Tidal Volume 450 07/06/17 09:49 PEEP 5 07/06/17 09:49 Pressure (ins/psv/peep) 0 07/06/17 09:49 Critical Value Chase 07/06/17 09:49 Sodium 133 mEq/L (136-145) L 07/08/17 05:10 Potassium 3.5 mEq/L (3.5-5.1) 07/08/17 05:10 Chloride 106 mEq/L (98-107) 07/08/17 05:10 Carbon Dioxide 20.1 mEq/L (21.0-31.0) L 07/08/17 05:10 Anion Gap 10.4 (7.0-16.0) 07/08/17 05:10 BUN 15 mg/dL (7-25) 07/08/17 05:10 Creatinine 0.7 mg/dL (0.6-1.2) 07/08/17 05:10 Est GFR ( Amer) TNP 07/08/17 05:10 Est GFR (Non-Af Amer) TNP 07/08/17 05:10 BUN/Creatinine Ratio 21.4 07/08/17 05:10 Glucose 150 mg/dL (70-105) H 07/08/17 05:10 Whole Bld Lactic Acid 3.99 mmol/L (0.60-1.99) H* 07/05/17 13:00 Calcium 8.0 mg/dL (8.6-10.3) L 07/08/17 05:10 Phosphorus 1.5 mg/dL (2.5-5.0) L 07/02/17 05:20 Magnesium 1.7 mg/dL (1.9-2.7) L 07/02/17 05:20 Iron 21 07/03/17 05:48 TIBC 131 07/03/17 05:48 Iron Saturation 16 07/03/17 05:48 Unsaturated IBC 110 07/03/17 05:48 Ferritin 334 ng/mL (15-150) H 07/03/17 05:48 Total Bilirubin 0.5 mg/dL (0.3-1.0) 07/05/17 06:05 AST 16 U/L (13-39) 07/05/17 06:05 ALT 8 U/L (7-52) 07/05/17 06:05 Alkaline Phosphatase 66 U/L (34-104) 07/05/17 06:05 Troponin I 0.09 ng/mL (0.01-0.05) H* D 07/04/17 05:50 B-Natriuretic Peptide 215.0 pg/mL (5.0-100.0) H 07/01/17 14:10 Total Protein 5.6 gm/dL (6.0-8.3) L 07/05/17 06:05 Albumin 2.6 gm/dL (3.7-5.3) L 07/05/17 06:05 Globulin 3.0 gm/dL 07/05/17 06:05 Albumin/Globulin Ratio 0.9 (1.0-1.8) L 07/05/17 06:05 Triglycerides 107 mg/dL (<150) 07/04/17 05:50 Cholesterol 114 mg/dL (<200) 07/04/17 05:50 LDL Cholesterol Direct 59 mg/dL (75-193) L 07/04/17 05:50 HDL Cholesterol 31 mg/dL (23-92) 07/04/17 05:50 TSH 1.46 uIU/ml (0.34-5.60) 07/04/17 05:50 Urine Source CATH 07/05/17 18:30 Urine Color YELLOW 07/05/17 18:30 Urine Clarity CLOUDY (CLEAR) H 07/05/17 18:30 Urine pH 5.5 (4.6 - 8.0) 07/05/17 18:30 Ur Specific [place] 1.025 (1.005-1.030) 07/05/17 18:30 Urine Protein 30 mg/dL (NEGATIVE) H 07/05/17 18:30 Urine Glucose (UA) NEGATIVE mg/dL (NEGATIVE) 07/05/17 18:30 Urine Ketones TRACE mg/dL (NEGATIVE) 07/05/17 18:30 Urine Blood SMALL (NEGATIVE) H 07/05/17 18:30 Urine Nitrate NEGATIVE (NEGATIVE) 07/05/17 18:30 Urine Bilirubin NEGATIVE (NEGATIVE) 07/05/17 18:30 Urine Urobilinogen 0.2 E.U./dL (0.2 - 1.0) 07/05/17 18:30 Ur Leukocyte Esterase LARGE (NEGATIVE) H 07/05/17 18:30 Urine RBC 2-5 /hpf (0-5) 07/05/17 18:30 Urine WBC >100 /hpf (0-5) H 07/05/17 18:30 Ur Epithelial Cells FEW /lpf (FEW) 07/05/17 18:30 Urine Bacteria FEW /hpf (NONE SEEN) 07/05/17 18:30 Urine Yeast FEW /hpf (NONE SEEN) H 07/05/17 18:30 Vancomycin Trough 13.0 ug/mL (5-10) H 07/07/17 05:35 - Physical Exam Vitals and I&O: Vital Signs Temp 98.5 F 07/08/17 04:00 Pulse 91 07/08/17 06:00 Resp 16 07/08/17 06:00 BP 123/65 07/08/17 06:00 Pulse Ox 100 07/08/17 06:00 Intake & Output 07/07/17 07/08/17 07/08/17 18:59 06:59 18:59 Intake Total 2105 1276.25 Output Total 550 450 Balance 1555 826.25 Weight (lbs) 51.256 kg 59.477 kg Intake: Intake, IV Amount 1385 1276.25 D5-0.45NS 1,000 ml @ 75 1000 1126.25 mls/hr IV .[id number] [facility] Rx #:[id number] KCL 20mEq/100mL Premix 20 85 meq In 100 ml @ 50 mls/ hr IV Q2H [facility] Rx#: [id number] Piperacillin Sodium/ 50 150 Tazobact 2.25 gm In Sodium Chloride 0.9% 50 ml @ 100 mls/hr IV Q6HR [facility] Rx#:[id number] Vancomycin HCl 1 gm In 250 Sodium Chloride 0.9% 250 ml @ 165 mls/hr IV Q24HR@ 0800 [facility] Rx#:[id number] Tube Feeding 480 Other 240 Output: Urine 550 450 Other: # Bowel Movements 1 0 Stool Characteristics Soft Brown Weight Source Bedscale Bedscale Active Medications: Current Medications Acetaminophen (Tylenol) 650 mg PO Q4H PRN PRN Reason: Fever > 101 Stop: 08/30/17 22:06 Last Admin: 07/06/17 18:25 Dose: 650 mg Acetaminophen/Hydrocodone Bitart ([place] 10 Mg/325 Mg) 1 tab PO Q6H PRN PRN Reason: mod pain Stop: 08/30/17 22:07 Last Admin: 07/07/17 20:53 Dose: 1 tab Albuterol/Ipratropium (Duoneb Neb) 3 ml HHN Q4HRT PRN PRN Reason: Wheezing Stop: 08/30/17 22:13 Albuterol/Ipratropium (Duoneb Neb) 3 ml HHN Q6HRT [facility] Stop: 08/31/17 00:59 Last Admin: 07/08/17 08:18 Dose: 3 ml Ascorbic Acid (Vitamin C) 500 mg PO DAILY [facility] Stop: 08/31/17 08:59 Last Admin: 07/07/17 09:17 Dose: 500 mg Baclofen (Lioresal) 5 mg PO TID [facility] Stop: 09/06/17 08:59 Bisacodyl (Dulcolax 10 Mg Supp) 10 mg RC HS PRN PRN Reason: BOWEL CARE MANAGEMENT Stop: 08/30/17 22:18 Budesonide (Pulmicort) 0.5 mg HHN BIDRT [facility] Stop: 08/31/17 18:59 Last Admin: 07/08/17 08:18 Dose: 0.5 mg Chlorhexidine Gluconate (Peridex) 15 ml MM 0800,2000 [facility] Stop: 09/03/17 19:59 Last Admin: 07/07/17 20:13 Dose: 15 ml Cyproheptadine HCl (Periactin) 4 mg PO BID [facility]ADI Stop: 08/31/17 08:59 Last Admin: 07/07/17 18:52 Dose: 4 mg Docusate Sodium (Colace) 100 mg PO BID [facility] Stop: 08/31/17 08:59 Last Admin: 07/07/17 18:52 Dose: 100 mg Ferrous Sulfate (Iron) 325 mg PO BID [facility] Stop: 08/31/17 08:59 Last Admin: 07/07/17 18:52 Dose: 325 mg Folic Acid (Folate) 1 mg PO DAILY [facility]I Stop: 08/31/17 08:59 Last Admin: 07/07/17 09:17 Dose: 1 mg Piperacillin Sod/Tazobactam (Sod 2.25 gm/ Sodium Chloride) 50 mls @ 100 mls/hr IV Q6HR [facility] Stop: 08/31/17 00:00 Last Infusion: 07/08/17 06:46 Dose: Infused Dextrose/Sodium Chloride (D5-0.45ns) 1,000 mls @ 75 mls/hr IV .[id number] [facility] Stop: 09/01/17 11:59 Last Infusion: 07/08/17 06:46 Dose: 75 mls/hr Amiodarone HCl 450 mg/ Sodium (Chloride) 259 mls @ 0 mls/hr IV TITR SHADI; Titrate PRN Reason: Protocol Stop: 09/03/17 16:29 Last Titration: 07/06/17 08:00 Dose: 0 mg/min, 0 mls/hr Norepinephrine Bitartrate 4 mg (/ Sodium Chloride) 254 mls @ 0 mls/hr IV TITR SHADI; Titrate PRN Reason: Protocol Stop: 09/03/17 16:29 Vancomycin HCl 1 gm/ Sodium (Chloride) 250 mls @ 165 mls/hr IV Q24HR@0800 [facility] Stop: 09/04/17 09:59 Last Infusion: 07/07/17 14:10 Dose: Infused Lactobacillus Rhamnosus (Culturelle 15b) 1 each PO DAILY SHADI Stop: 09/01/17 08:59 Last Admin: 07/07/17 09:17 Dose: 1 each Lactulose (Cephulac) 20 gm PO QID PRN PRN Reason: Constipation Stop: 08/30/17 22:18 Lorazepam (Ativan) 1 mg IVP Q4HR PRN; Protocol PRN Reason: Anxiety Stop: 09/04/17 08:31 Last Admin: 07/07/17 20:53 Dose: 1 mg Miscellaneous (Probiotic Screen) 1 ea PRN PRN PRN Reason: PROTOCOL Stop: 09/01/17 08:44 Miscellaneous (Vancomycin Iv Per Pharmacy) 1 ea PRN PRN PRN Reason: PROTOCOL Stop: 09/03/17 11:06 Morphine Sulfate (Morphine) 2 mg IVP Q4H PRN PRN Reason: moderate pain Stop: 08/30/17 22:07 Last Admin: 07/05/17 22:30 Dose: 2 mg Morphine Sulfate (Morphine) 2 mg IVP Q4HR PRN PRN Reason: PAIN Stop: 08/30/17 22:19 Multivitamins/Vitamin C (Theragran) 1 tab PO DAILY SHADI Stop: 08/31/17 08:59 Last Admin: 07/07/17 09:17 Dose: 1 tab Nicotine (Nicotine Transdermal System) 14 mg TD DAILY [facility] Stop: 09/04/17 08:59 Last Admin: 07/07/17 09:53 Dose: 14 mg Pantoprazole Sodium (Protonix) 40 mg IVP DAILY [facility]ADI Stop: 09/04/17 08:59 Last Admin: 07/07/17 09:17 Dose: 40 mg Rivaroxaban (Xarelto) 10 mg PO DAILY [facility]I Stop: 09/03/17 08:59 Last Admin: 07/07/17 09:17 Dose: 10 mg General: Other (intubated, cachectic appearing, not resposive) HEENT: Atraumatic, Other (no dc) Neck: Supple, no JVD, no Thyromegaly Cardiovascular: Regular rate, Other (in A fib) Lungs: Other (Intubated, has bl rales) Abdomen: Bowel sounds, Soft, no Tender, no Hepatomegaly Extremities: Edema, no Clubbing Neurological: Other (Pt unable to participate in test) Skin: no Rash Psych/Mental Status: Other (no psychosis) - Procedures Procedures: Procedures Procedure Code Date INSERT EMERGENCY AIRWAY 81622 07/01/17 INSERTION OF ENDOTRACHEAL AIRWAY INTO [place], VIA OPENING [id number] 07/01/17 RESPIRATORY VENTILATION, LESS THAN 24 CONSECUTIVE HOURS [id number] 07/01/17 VENT MGMT INPAT IN DAY [id number] 07/01/17 Assessment/Plan - Problem List Patient Problems: All Active Problems WEAKESS AND POOR ORAL INTAKE (Acute) - Assessment Assessment: Septic shock A fib with RVR Fail to thrive Stage 4 lung ca Sepsis due to E Coli UTI ME Ch pain syn Anemia of ch ill Hypernatremia Hypokalemia Type 2 [place] A fib - Plan Plan: Pt holds a poor progonosis. Been trying to communicate poor prognosis to the son. He wants "everything done. " Cardio, Pulm, and Heme Onc seeing pt, all of whom agree with comfort care/ hospice. On IV Zosyn and Vanco. Has been on Amiodarone and Levphed drip in ICU-now off as off 07/06/17. Intubated on 07/05/17. Elec corrected. I's and O's reviewed. Vent settings reviewed. Vent: AC mode, rate 12 PEEP 5 FiO2 30% TV 450 Nutritional Asmnt/Malnutr-PDOC - Dietary Evaluation Malnutrition Findings (Please click <Entered> for more info): Nutritional Asmnt/Malnutrition Start: 07/03/17 13: 22 Text: Status: Complete Freq: Document 07/03/17 13:22 MMULHERN (Rec: 07/03/17 13:35 [email or web address]) Nutritional Asmnt/Malnutrition Patient General Information Nutritional Screening Consult Diagnosis UTI, Failure to thrive, hypokalemia Pertinent Medical Hx/Surgical Hx CAD, HTN, COPD, Stage 4 lung cancer, peripheral neuropathy, constipation, GERD, anxiety, low back pain Subjective Information Consult received for Failure to Thrive. Current Diet Order/ Nutrition Support Regular diet, pureed with mechaical soft Patient / S.O Not Indicated Pertinent Medications Vitamin C, dulcolax, D5-0.45 NS @ 75 ml/hr, colace, iron, folate, lactulose, theragran Pertinent Labs (07/02) P 1.5, Mg 1.7, albumin 2.9 Nutritional Hx/Data Height 1.6 m Height (Calculated Centimeters) 160.0 Current Weight (lbs) 54.885 kg Weight (Calculated Kilograms) 54.9 Weight (Calculated Grams) 89838.7 [place] Body Weight 115 % [place] Body Weight 105 Body Mass Index (BMI) 21.4 Recent Weight Change No Weight Status Approriate GI Symptoms GI Symptoms None Last BM Prior to admission Difficult in: None Food Allergies No Cultural/Ethnic/Sikh Belief None indicated Skin Integrity/Comment: Pradeep 15 Current %PO Poor (25-49%) Estimated Nutritional Goals BEE in Kcals: Using Current wt Calories/Kcals/Kg 55kg CBW (25-30kcal/kg) Kcals Calculated 6274-7300 kcal/day Protein: Using Current wt Protein g/k-1.2 gm/kg Protein Calculated 55-65 gm/day Fluid: ml 4755-8316 ml/day (1 ml/kcal) Nutritional Problem 2. Problem Problem Inadequate oral intake related to Etiology poor appetite aeb Signs/Symptoms: meeting <75% of estimated nutrient needs 1. Problem Problem Altered nutrition related lab values related to Etiology electrolyte imbalance aeb Signs/Symptoms: P 1.5, Mg 1.7 Intervention/Recommendation Comments 1. Continue pureed diet as tolerated by patient. 2. RN To assist with feedings and encourage oral intake. 3. Consider adding Boost plus between meals to optimize calorie and protein intake. Expected Outcomes/Goals Expected Outcomes/Goals Oral intake to meet >75% of needs, weight stable, nutrition labs WNL F/U MR 07/06-
[2017-07-08] MEDS: Nicotine 14 mg/24 hr Tdm TD SCH (09:59)
[2017-07-08] MEDS: Lactobacillus Rhamnosus GG 15 Billion CFU CAP.SPRINK PO SCH (10:11)
[2017-07-08] MEDS: Lactulose 10 Gm/15 mL 30mL UDC PO PRN (10:11)
[2017-07-08] MEDS: Ferrous Sulfate 325 MG TAB PO SCH ×2 (10:12→19:45)
[2017-07-08] MEDS: Multivitamin Tab PO SCH (10:12)
[2017-07-08] MEDS: Cyproheptadine 4 mg Tab PO SCH ×2 (10:13→19:57)
[2017-07-08] MEDS: Chlorhexidine Gluconate 0.12% 15mL Mouthwash MM SCH ×2 (10:14→21:37)
--- NOTE | 2017-07-08 11:38 | Infectious Disease Prog Note ---
Infectious Disease Subjective - Review of Systems Service Date: 07/08/17 Subjective: There is no new change. Patient remains intubated orally, on the ventilator support. Infectious Disease Objective - Results Result Diagrams: 07/08/17 05:10 07/08/17 05:10 Recent Labs: Laboratory Last Values WBC 15.8 Th/cmm (4.8-10.8) H 07/08/17 05:10 RBC 3.03 Mil/cmm (3.80-5.20) L 07/08/17 05:10 Hgb 8.8 gm/dL (12-16) L 07/08/17 05:10 Hct 26.5 % (41.0-60) L 07/08/17 05:10 MCV 87.4 fl (81-100) 07/08/17 05:10 MCH 29.0 pg (27.0-31.0) 07/08/17 05:10 MCHC Differential 33.2 pg (28.0-36.0) 07/08/17 05:10 RDW 15.5 % (11.5-20.0) 07/08/17 05:10 Plt Count 317 Th/cmm (150-400) 07/08/17 05:10 MPV 7.2 fl 07/08/17 05:10 Neutrophils % 90.2 % (40.0-80.0) H 07/07/17 05:35 Band Neutrophils % 1 % (0-10) 07/08/17 05:10 Lymphocytes % 3.8 % (20.0-50.0) L 07/07/17 05:35 Monocytes % 4.8 % (2.0-10.0) 07/07/17 05:35 Eosinophils % 1.0 % (0.0-5.0) 07/07/17 05:35 Basophils % 0.2 % (0.0-2.0) 07/07/17 05:35 Neutrophils (Manual) 81 % (40-80) H 07/08/17 05:10 Lymphocytes 10 % (20-50) L 07/08/17 05:10 Monocytes 6 % (2-10) 07/08/17 05:10 Eosinophils 2 % (0-5) 07/08/17 05:10 Basophils 0 % (0-3) 07/08/17 05:10 Specimen Source Arterial 07/06/17 09:49 Sample Site rr 07/06/17 09:49 pH 7.47 (7.35-7.45) H 07/06/17 09:49 pCO2 30.0 mmHg (35.0-45.0) L 07/06/17 09:49 pO2 121.0 mmHg (80.0-100.0) H 07/06/17 09:49 HCO3 24.2 mEq/L (20.0-26.0) 07/06/17 09:49 Base Excess -1.0 mEq/L (-3.0-3.0) 07/06/17 09:49 O2 Saturation 99.0 % (92.0-100.0) 07/06/17 09:49 Darius Test YES 07/06/17 09:49 Vent Rate 14 07/06/17 09:49 Inspired O2 30 07/06/17 09:49 Tidal Volume 450 07/06/17 09:49 PEEP 5 07/06/17 09:49 Pressure (ins/psv/peep) 0 07/06/17 09:49 Critical Value Chase 07/06/17 09:49 Sodium 133 mEq/L (136-145) L 07/08/17 05:10 Potassium 3.5 mEq/L (3.5-5.1) 07/08/17 05:10 Chloride 106 mEq/L (98-107) 07/08/17 05:10 Carbon Dioxide 20.1 mEq/L (21.0-31.0) L 07/08/17 05:10 Anion Gap 10.4 (7.0-16.0) 07/08/17 05:10 BUN 15 mg/dL (7-25) 07/08/17 05:10 Creatinine 0.7 mg/dL (0.6-1.2) 07/08/17 05:10 Est GFR ( Amer) TNP 07/08/17 05:10 Est GFR (Non-Af Amer) TNP 07/08/17 05:10 BUN/Creatinine Ratio 21.4 07/08/17 05:10 Glucose 150 mg/dL (70-105) H 07/08/17 05:10 Whole Bld Lactic Acid 3.99 mmol/L (0.60-1.99) H* 07/05/17 13:00 Calcium 8.0 mg/dL (8.6-10.3) L 07/08/17 05:10 Phosphorus 1.5 mg/dL (2.5-5.0) L 07/02/17 05:20 Magnesium 1.7 mg/dL (1.9-2.7) L 07/02/17 05:20 Iron 21 07/03/17 05:48 TIBC 131 07/03/17 05:48 Iron Saturation 16 07/03/17 05:48 Unsaturated IBC 110 07/03/17 05:48 Ferritin 334 ng/mL (15-150) H 07/03/17 05:48 Total Bilirubin 0.5 mg/dL (0.3-1.0) 07/05/17 06:05 AST 16 U/L (13-39) 07/05/17 06:05 ALT 8 U/L (7-52) 07/05/17 06:05 Alkaline Phosphatase 66 U/L (34-104) 07/05/17 06:05 Troponin I 0.09 ng/mL (0.01-0.05) H* D 07/04/17 05:50 B-Natriuretic Peptide 215.0 pg/mL (5.0-100.0) H 07/01/17 14:10 Total Protein 5.6 gm/dL (6.0-8.3) L 07/05/17 06:05 Albumin 2.6 gm/dL (3.7-5.3) L 07/05/17 06:05 Globulin 3.0 gm/dL 07/05/17 06:05 Albumin/Globulin Ratio 0.9 (1.0-1.8) L 07/05/17 06:05 Triglycerides 107 mg/dL (<150) 07/04/17 05:50 Cholesterol 114 mg/dL (<200) 07/04/17 05:50 LDL Cholesterol Direct 59 mg/dL (75-193) L 07/04/17 05:50 HDL Cholesterol 31 mg/dL (23-92) 07/04/17 05:50 TSH 1.46 uIU/ml (0.34-5.60) 07/04/17 05:50 Urine Source CATH 07/05/17 18:30 Urine Color YELLOW 07/05/17 18:30 Urine Clarity CLOUDY (CLEAR) H 07/05/17 18:30 Urine pH 5.5 (4.6 - 8.0) 07/05/17 18:30 Ur Specific [place] 1.025 (1.005-1.030) 07/05/17 18:30 Urine Protein 30 mg/dL (NEGATIVE) H 07/05/17 18:30 Urine Glucose (UA) NEGATIVE mg/dL (NEGATIVE) 07/05/17 18:30 Urine Ketones TRACE mg/dL (NEGATIVE) 07/05/17 18:30 Urine Blood SMALL (NEGATIVE) H 07/05/17 18:30 Urine Nitrate NEGATIVE (NEGATIVE) 07/05/17 18:30 Urine Bilirubin NEGATIVE (NEGATIVE) 07/05/17 18:30 Urine Urobilinogen 0.2 E.U./dL (0.2 - 1.0) 07/05/17 18:30 Ur Leukocyte Esterase LARGE (NEGATIVE) H 07/05/17 18:30 Urine RBC 2-5 /hpf (0-5) 07/05/17 18:30 Urine WBC >100 /hpf (0-5) H 07/05/17 18:30 Ur Epithelial Cells FEW /lpf (FEW) 07/05/17 18:30 Urine Bacteria FEW /hpf (NONE SEEN) 07/05/17 18:30 Urine Yeast FEW /hpf (NONE SEEN) H 07/05/17 18:30 Vancomycin Trough 13.0 ug/mL (5-10) H 07/07/17 05:35 - Physical Exam Vitals and I&O: Vital Signs Temp 98.5 F 07/08/17 04:00 Pulse 88 07/08/17 10:01 Resp 16 07/08/17 06:00 BP 123/65 07/08/17 06:00 Pulse Ox 100 07/08/17 06:00 Intake & Output 07/07/17 07/08/17 07/08/17 18:59 06:59 18:59 Intake Total 2105 1276.25 Output Total 550 450 Balance 1555 826.25 Weight (lbs) 51.256 kg 59.477 kg Intake: Intake, IV Amount 1385 1276.25 D5-0.45NS 1,000 ml @ 75 1000 1126.25 mls/hr IV .[id number] [facility] Rx #:[id number] KCL 20mEq/100mL Premix 20 85 meq In 100 ml @ 50 mls/ hr IV Q2H [facility] Rx#: [id number] Piperacillin Sodium/ 50 150 Tazobact 2.25 gm In Sodium Chloride 0.9% 50 ml @ 100 mls/hr IV Q6HR [facility] Rx#:[id number] Vancomycin HCl 1 gm In 250 Sodium Chloride 0.9% 250 ml @ 165 mls/hr IV Q24HR@ 0800 [facility] Rx#:[id number] Tube Feeding 480 Other 240 Output: Urine 550 450 Other: # Bowel Movements 1 0 Stool Characteristics Soft Brown Weight Source Bedscale Bedscale Active Medications: Current Medications Acetaminophen (Tylenol) 650 mg PO Q4H PRN PRN Reason: Fever > 101 Stop: 08/30/17 22:06 Last Admin: 07/06/17 18:25 Dose: 650 mg Acetaminophen/Hydrocodone Bitart ([place] 10 Mg/325 Mg) 1 tab PO Q6H PRN PRN Reason: mod pain Stop: 08/30/17 22:07 Last Admin: 07/07/17 20:53 Dose: 1 tab Albuterol/Ipratropium (Duoneb Neb) 3 ml HHN Q4HRT PRN PRN Reason: Wheezing Stop: 08/30/17 22:13 Albuterol/Ipratropium (Duoneb Neb) 3 ml HHN Q6HRT [facility] Stop: 08/31/17 00:59 Last Admin: 07/08/17 08:18 Dose: 3 ml Ascorbic Acid (Vitamin C) 500 mg PO DAILY [facility] Stop: 08/31/17 08:59 Last Admin: 07/08/17 10:12 Dose: 500 mg Baclofen (Lioresal) 5 mg PO TID [facility] Stop: 09/06/17 08:59 Bisacodyl (Dulcolax 10 Mg Supp) 10 mg RC HS PRN PRN Reason: BOWEL CARE MANAGEMENT Stop: 08/30/17 22:18 Budesonide (Pulmicort) 0.5 mg HHN BIDRT [facility] Stop: 08/31/17 18:59 Last Admin: 07/08/17 08:18 Dose: 0.5 mg Chlorhexidine Gluconate (Peridex) 15 ml MM 0800,2000 [facility] Stop: 09/03/17 19:59 Last Admin: 07/08/17 10:14 Dose: 15 ml Cyproheptadine HCl (Periactin) 4 mg PO BID [facility] Stop: 08/31/17 08:59 Last Admin: 07/08/17 10:13 Dose: 4 mg Docusate Sodium (Colace) 100 mg PO BID [facility] Stop: 08/31/17 08:59 Last Admin: 07/07/17 18:52 Dose: 100 mg Ferrous Sulfate (Iron) 325 mg PO BID [facility] Stop: 08/31/17 08:59 Last Admin: 07/08/17 10:12 Dose: 325 mg Folic Acid (Folate) 1 mg PO DAILY [facility] Stop: 08/31/17 08:59 Last Admin: 07/07/17 09:17 Dose: 1 mg Piperacillin Sod/Tazobactam (Sod 2.25 gm/ Sodium Chloride) 50 mls @ 100 mls/hr IV Q6HR [facility] Stop: 08/31/17 00:00 Last Infusion: 07/08/17 06:46 Dose: Infused Dextrose/Sodium Chloride (D5-0.45ns) 1,000 mls @ 75 mls/hr IV .[id number] [facility] Stop: 09/01/17 11:59 Last Infusion: 07/08/17 06:46 Dose: 75 mls/hr Amiodarone HCl 450 mg/ Sodium (Chloride) 259 mls @ 0 mls/hr IV TITR [facility]; Titrate PRN Reason: Protocol Stop: 09/03/17 16:29 Last Titration: 07/06/17 08:00 Dose: 0 mg/min, 0 mls/hr Norepinephrine Bitartrate 4 mg (/ Sodium Chloride) 254 mls @ 0 mls/hr IV TITR [facility]; Titrate PRN Reason: Protocol Stop: 09/03/17 16:29 Vancomycin HCl 1 gm/ Sodium (Chloride) 250 mls @ 165 mls/hr IV Q24HR@0800 [facility] Stop: 09/04/17 09:59 Last Admin: 07/08/17 10:29 Dose: 165 mls/hr Lactobacillus Rhamnosus (Culturelle 15b) 1 each PO DAILY [facility] Stop: 09/01/17 08:59 Last Admin: 07/08/17 10:11 Dose: 1 each Lactulose (Cephulac) 20 gm PO QID PRN PRN Reason: Constipation Stop: 08/30/17 22:18 Last Admin: 07/08/17 10:11 Dose: 20 gm Lorazepam (Ativan) 1 mg IVP Q4HR PRN; Protocol PRN Reason: Anxiety Stop: 09/04/17 08:31 Last Admin: 07/07/17 20:53 Dose: 1 mg Miscellaneous (Probiotic Screen) 1 ea PRN PRN PRN Reason: PROTOCOL Stop: 09/01/17 08:44 Miscellaneous (Vancomycin Iv Per Pharmacy) 1 ea PRN PRN PRN Reason: PROTOCOL Stop: 09/03/17 11:06 Morphine Sulfate (Morphine) 2 mg IVP Q4H PRN PRN Reason: moderate pain Stop: 08/30/17 22:07 Last Admin: 07/05/17 22:30 Dose: 2 mg Morphine Sulfate (Morphine) 2 mg IVP Q4HR PRN PRN Reason: PAIN Stop: 08/30/17 22:19 Multivitamins/Vitamin C (Theragran) 1 tab PO DAILY [facility] Stop: 08/31/17 08:59 Last Admin: 07/08/17 10:12 Dose: 1 tab Nicotine (Nicotine Transdermal System) 14 mg TD DAILY [facility] Stop: 09/04/17 08:59 Last Admin: 07/07/17 09:53 Dose: 14 mg Pantoprazole Sodium (Protonix) 40 mg IVP DAILY [facility] Stop: 09/04/17 08:59 Last Admin: 07/08/17 10:10 Dose: 40 mg Rivaroxaban (Xarelto) 10 mg PO DAILY [facility] Stop: 09/03/17 08:59 Last Admin: 07/08/17 10:11 Dose: 10 mg General: no acute distress, well developed, well nourished HEENT: atraumatic, normocephalic, PERRLA, EOMI Neck: supple, no thyromegaly Cardiovascular: S1S2, regular Lungs: clear to percussion, rhonchi Abdomen: soft, no tender, no distended Extremities: no cyanosis, no clubbing, no edema Skin: intact - Procedures Procedures: Procedures Procedure Code Date INSERT EMERGENCY AIRWAY 63839 07/01/17 INSERTION OF ENDOTRACHEAL AIRWAY INTO [place], VIA OPENING [id number] 07/01/17 RESPIRATORY VENTILATION, LESS THAN 24 CONSECUTIVE HOURS [id number] 07/01/17 VENT MGMT INPAT IN DAY 27288 07/01/17 Infectious Disease Assmt/Plan - Problem List Patient Problems: All Active Problems WEAKESS AND POOR ORAL INTAKE (Acute) - Assessment Assessment: 1. Leukocytosis. Fever, sepsis. 2. Pneumonia. 3. Stage IV lung CA. 4. Protein calorie malnutrion, 5. VDRF. 6. ALTERED MENTAL STATUS. - Plan Plan: Continue Zosyn, and vancomycin IV. Nutritional Asmnt/Malnutr-PDOC - Dietary Evaluation Malnutrition Findings (Please click <Entered> for more info): Nutritional Asmnt/Malnutrition Start: 07/03/17 13: 22 Text: Status: Complete Freq: Document 07/03/17 13:22 MMULHERN (Rec: 07/03/17 13:35 [email or web address] RAFITA- FN) Nutritional Asmnt/Malnutrition Patient General Information Nutritional Screening Consult Diagnosis UTI, Failure to thrive, hypokalemia Pertinent Medical Hx/Surgical Hx CAD, HTN, COPD, Stage 4 lung cancer, peripheral neuropathy, constipation, GERD, anxiety, low back pain Subjective Information Consult received for Failure to Thrive. Current Diet Order/ Nutrition Support Regular diet, pureed with mechaical soft Patient / S.O Not Indicated Pertinent Medications Vitamin C, dulcolax, D5-0.45 NS @ 75 ml/hr, colace, iron, folate, lactulose, theragran Pertinent Labs (07/02) P 1.5, Mg 1.7, albumin 2.9 Nutritional Hx/Data Height 1.6 m Height (Calculated Centimeters) 160.0 Current Weight (lbs) 54.885 kg Weight (Calculated Kilograms) 54.9 Weight (Calculated Grams) 55363.7 [place] Body Weight 115 % [place] Body Weight 105 Body Mass Index (BMI) 21.4 Recent Weight Change No Weight Status Approriate GI Symptoms GI Symptoms None Last BM Prior to admission Difficult in: None Food Allergies No Cultural/Ethnic/Yazidism Belief None indicated Skin Integrity/Comment: Pradeep 15 Current %PO Poor (25-49%) Estimated Nutritional Goals BEE in Kcals: Using Current wt Calories/Kcals/Kg 55kg CBW (25-30kcal/kg) Kcals Calculated 7690-8412 kcal/day Protein: Using Current wt Protein g/k-1.2 gm/kg Protein Calculated 55-65 gm/day Fluid: ml 9796-1100 ml/day (1 ml/kcal) Nutritional Problem 2. Problem Problem Inadequate oral intake related to Etiology poor appetite aeb Signs/Symptoms: meeting <75% of estimated nutrient needs 1. Problem Problem Altered nutrition related lab values related to Etiology electrolyte imbalance aeb Signs/Symptoms: P 1.5, Mg 1.7 Intervention/Recommendation Comments 1. Continue pureed diet as tolerated by patient. 2. RN To assist with feedings and encourage oral intake. 3. Consider adding Boost plus between meals to optimize calorie and protein intake. Expected Outcomes/Goals Expected Outcomes/Goals Oral intake to meet >75% of needs, weight stable, nutrition labs WNL F/U MR
[2017-07-08 11:51] LABS: pH 7.45 (7.35-7.45)
[2017-07-08] MEDS ORDERED: Albuterol/Ipratropium Neb 3 ML AERS HHN ONE (12:43)
--- NOTE | 2017-07-08 15:21 | General Progress Note ---
Subjective - Review of Systems Service Date: 07/08/17 Objective - Results Result Diagrams: 07/08/17 05:10 07/08/17 05:10 Recent Labs: Laboratory Last Values WBC 15.8 Th/cmm (4.8-10.8) H 07/08/17 05:10 RBC 3.03 Mil/cmm (3.80-5.20) L 07/08/17 05:10 Hgb 8.8 gm/dL (12-16) L 07/08/17 05:10 Hct 26.5 % (41.0-60) L 07/08/17 05:10 MCV 87.4 fl (81-100) 07/08/17 05:10 MCH 29.0 pg (27.0-31.0) 07/08/17 05:10 MCHC Differential 33.2 pg (28.0-36.0) 07/08/17 05:10 RDW 15.5 % (11.5-20.0) 07/08/17 05:10 Plt Count 317 Th/cmm (150-400) 07/08/17 05:10 MPV 7.2 fl 07/08/17 05:10 Neutrophils % 90.2 % (40.0-80.0) H 07/07/17 05:35 Band Neutrophils % 1 % (0-10) 07/08/17 05:10 Lymphocytes % 3.8 % (20.0-50.0) L 07/07/17 05:35 Monocytes % 4.8 % (2.0-10.0) 07/07/17 05:35 Eosinophils % 1.0 % (0.0-5.0) 07/07/17 05:35 Basophils % 0.2 % (0.0-2.0) 07/07/17 05:35 Neutrophils (Manual) 81 % (40-80) H 07/08/17 05:10 Lymphocytes 10 % (20-50) L 07/08/17 05:10 Monocytes 6 % (2-10) 07/08/17 05:10 Eosinophils 2 % (0-5) 07/08/17 05:10 Basophils 0 % (0-3) 07/08/17 05:10 Specimen Source Arterial 07/08/17 11:40 Sample Site LB 07/08/17 11:40 pH 7.45 (7.35-7.45) 07/08/17 11:40 pCO2 30.0 mmHg (35.0-45.0) L 07/08/17 11:40 pO2 128.0 mmHg (80.0-100.0) H 07/08/17 11:40 HCO3 23.3 mEq/L (20.0-26.0) 07/08/17 11:40 Base Excess -2.2 mEq/L (-3.0-3.0) 07/08/17 11:40 O2 Saturation 99.0 % (92.0-100.0) 07/08/17 11:40 Darius Test NA 07/08/17 11:40 Vent Rate 14 07/08/17 11:40 Inspired O2 30 07/08/17 11:40 Tidal Volume 450 07/08/17 11:40 PEEP 5 07/08/17 11:40 Pressure (ins/psv/peep) NA 07/08/17 11:40 Critical Value E.GARCIA 07/08/17 11:40 Sodium 133 mEq/L (136-145) L 07/08/17 05:10 Potassium 3.5 mEq/L (3.5-5.1) 07/08/17 05:10 Chloride 106 mEq/L (98-107) 07/08/17 05:10 Carbon Dioxide 20.1 mEq/L (21.0-31.0) L 07/08/17 05:10 Anion Gap 10.4 (7.0-16.0) 07/08/17 05:10 BUN 15 mg/dL (7-25) 07/08/17 05:10 Creatinine 0.7 mg/dL (0.6-1.2) 07/08/17 05:10 Est GFR ( Amer) TNP 07/08/17 05:10 Est GFR (Non-Af Amer) TNP 07/08/17 05:10 BUN/Creatinine Ratio 21.4 07/08/17 05:10 Glucose 150 mg/dL (70-105) H 07/08/17 05:10 Whole Bld Lactic Acid 3.99 mmol/L (0.60-1.99) H* 07/05/17 13:00 Calcium 8.0 mg/dL (8.6-10.3) L 07/08/17 05:10 Phosphorus 1.5 mg/dL (2.5-5.0) L 07/02/17 05:20 Magnesium 1.7 mg/dL (1.9-2.7) L 07/02/17 05:20 Iron 21 07/03/17 05:48 TIBC 131 07/03/17 05:48 Iron Saturation 16 07/03/17 05:48 Unsaturated IBC 110 07/03/17 05:48 Ferritin 334 ng/mL (15-150) H 07/03/17 05:48 Total Bilirubin 0.5 mg/dL (0.3-1.0) 07/05/17 06:05 AST 16 U/L (13-39) 07/05/17 06:05 ALT 8 U/L (7-52) 07/05/17 06:05 Alkaline Phosphatase 66 U/L (34-104) 07/05/17 06:05 Troponin I 0.09 ng/mL (0.01-0.05) H* D 07/04/17 05:50 B-Natriuretic Peptide 215.0 pg/mL (5.0-100.0) H 07/01/17 14:10 Total Protein 5.6 gm/dL (6.0-8.3) L 07/05/17 06:05 Albumin 2.6 gm/dL (3.7-5.3) L 07/05/17 06:05 Globulin 3.0 gm/dL 07/05/17 06:05 Albumin/Globulin Ratio 0.9 (1.0-1.8) L 07/05/17 06:05 Triglycerides 107 mg/dL (<150) 07/04/17 05:50 Cholesterol 114 mg/dL (<200) 07/04/17 05:50 LDL Cholesterol Direct 59 mg/dL (75-193) L 07/04/17 05:50 HDL Cholesterol 31 mg/dL (23-92) 07/04/17 05:50 TSH 1.46 uIU/ml (0.34-5.60) 07/04/17 05:50 Urine Source CATH 07/05/17 18:30 Urine Color YELLOW 07/05/17 18:30 Urine Clarity CLOUDY (CLEAR) H 07/05/17 18:30 Urine pH 5.5 (4.6 - 8.0) 07/05/17 18:30 Ur Specific [place] 1.025 (1.005-1.030) 07/05/17 18:30 Urine Protein 30 mg/dL (NEGATIVE) H 07/05/17 18:30 Urine Glucose (UA) NEGATIVE mg/dL (NEGATIVE) 07/05/17 18:30 Urine Ketones TRACE mg/dL (NEGATIVE) 07/05/17 18:30 Urine Blood SMALL (NEGATIVE) H 07/05/17 18:30 Urine Nitrate NEGATIVE (NEGATIVE) 07/05/17 18:30 Urine Bilirubin NEGATIVE (NEGATIVE) 07/05/17 18:30 Urine Urobilinogen 0.2 E.U./dL (0.2 - 1.0) 07/05/17 18:30 Ur Leukocyte Esterase LARGE (NEGATIVE) H 07/05/17 18:30 Urine RBC 2-5 /hpf (0-5) 07/05/17 18:30 Urine WBC >100 /hpf (0-5) H 07/05/17 18:30 Ur Epithelial Cells FEW /lpf (FEW) 07/05/17 18:30 Urine Bacteria FEW /hpf (NONE SEEN) 07/05/17 18:30 Urine Yeast FEW /hpf (NONE SEEN) H 07/05/17 18:30 Vancomycin Trough 13.0 ug/mL (5-10) H 07/07/17 05:35 - Physical Exam Vitals and I&O: Vital Signs Temp 98.5 F 07/08/17 04:00 Pulse 98 07/08/17 13:55 Resp 16 07/08/17 06:00 BP 123/65 07/08/17 06:00 Pulse Ox 99 07/08/17 13:55 Intake & Output 07/07/17 07/08/17 07/08/17 18:59 06:59 18:59 Intake Total 2105 1276.25 Output Total 550 450 Balance 1555 826.25 Weight (lbs) 51.256 kg 59.477 kg Intake: Intake, IV Amount 1385 1276.25 D5-0.45NS 1,000 ml @ 75 1000 1126.25 mls/hr IV .[id number] [facility] Rx #:[id number] KCL 20mEq/100mL Premix 20 85 meq In 100 ml @ 50 mls/ hr IV Q2H [facility] Rx#: [id number] Piperacillin Sodium/ 50 150 Tazobact 2.25 gm In Sodium Chloride 0.9% 50 ml @ 100 mls/hr IV Q6HR [facility] Rx#:[id number] Vancomycin HCl 1 gm In 250 Sodium Chloride 0.9% 250 ml @ 165 mls/hr IV Q24HR@ 0800 [facility] Rx#:[id number] Tube Feeding 480 Other 240 Output: Urine 550 450 Other: # Bowel Movements 1 0 Stool Characteristics Soft Brown Weight Source Bedscale Bedscale Active Medications: Current Medications Acetaminophen (Tylenol) 650 mg PO Q4H PRN PRN Reason: Fever > 101 Stop: 08/30/17 22:06 Last Admin: 07/06/17 18:25 Dose: 650 mg Acetaminophen/Hydrocodone Bitart ([place] 10 Mg/325 Mg) 1 tab PO Q6H PRN PRN Reason: mod pain Stop: 08/30/17 22:07 Last Admin: 07/07/17 20:53 Dose: 1 tab Albuterol/Ipratropium (Duoneb Neb) 3 ml HHN Q4HRT PRN PRN Reason: Wheezing Stop: 08/30/17 22:13 Albuterol/Ipratropium (Duoneb Neb) 3 ml HHN Q6HRT [facility] Stop: 08/31/17 00:59 Last Admin: 07/08/17 13:55 Dose: 3 ml Ascorbic Acid (Vitamin C) 500 mg PO DAILY [facility] Stop: 08/31/17 08:59 Last Admin: 07/08/17 10:12 Dose: 500 mg Baclofen (Lioresal) 5 mg PO TID [facility] Stop: 09/06/17 08:59 Bisacodyl (Dulcolax 10 Mg Supp) 10 mg RC HS PRN PRN Reason: BOWEL CARE MANAGEMENT Stop: 08/30/17 22:18 Budesonide (Pulmicort) 0.5 mg HHN BIDRT [facility] Stop: 08/31/17 18:59 Last Admin: 07/08/17 08:18 Dose: 0.5 mg Chlorhexidine Gluconate (Peridex) 15 ml MM 0800,1999 [facility] Stop: 09/03/17 19:59 Last Admin: 07/08/17 10:14 Dose: 15 ml Cyproheptadine HCl (Periactin) 4 mg PO BID [facility] Stop: 08/31/17 08:59 Last Admin: 07/08/17 10:13 Dose: 4 mg Docusate Sodium (Colace) 100 mg PO BID [facility] Stop: 08/31/17 08:59 Last Admin: 07/08/17 09:00 Dose: 100 mg Ferrous Sulfate (Iron) 325 mg PO BID [facility] Stop: 08/31/17 08:59 Last Admin: 07/08/17 10:12 Dose: 325 mg Folic Acid (Folate) 1 mg PO DAILY [facility] Stop: 08/31/17 08:59 Last Admin: 07/08/17 09:00 Dose: 1 mg Piperacillin Sod/Tazobactam (Sod 2.25 gm/ Sodium Chloride) 50 mls @ 100 mls/hr IV Q6HR [facility] Stop: 08/31/17 00:00 Last Admin: 07/08/17 12:09 Dose: 100 mls/hr Dextrose/Sodium Chloride (D5-0.45ns) 1,000 mls @ 75 mls/hr IV .[id number] [facility] Stop: 09/01/17 11:59 Last Infusion: 07/08/17 06:46 Dose: 75 mls/hr Amiodarone HCl 450 mg/ Sodium (Chloride) 259 mls @ 0 mls/hr IV TITR [facility]ADI; Titrate PRN Reason: Protocol Stop: 09/03/17 16:29 Last Titration: 07/06/17 08:00 Dose: 0 mg/min, 0 mls/hr Norepinephrine Bitartrate 4 mg (/ Sodium Chloride) 254 mls @ 0 mls/hr IV TITR SHADI; Titrate PRN Reason: Protocol Stop: 09/03/17 16:29 Vancomycin HCl 1 gm/ Sodium (Chloride) 250 mls @ 165 mls/hr IV Q24H [facility] Stop: 09/07/17 09:59 Lactobacillus Rhamnosus (Culturelle 15b) 1 each PO DAILY [facility] Stop: 09/01/17 08:59 Last Admin: 07/08/17 10:11 Dose: 1 each Lactulose (Cephulac) 20 gm PO QID PRN PRN Reason: Constipation Stop: 08/30/17 22:18 Last Admin: 07/08/17 10:11 Dose: 20 gm Lorazepam (Ativan) 1 mg IVP Q4HR PRN; Protocol PRN Reason: Anxiety Stop: 09/04/17 08:31 Last Admin: 07/07/17 20:53 Dose: 1 mg Miscellaneous (Probiotic Screen) 1 ea MC PRN PRN PRN Reason: PROTOCOL Stop: 09/01/17 08:44 Miscellaneous (Vancomycin Iv Per Pharmacy) 1 ea MC PRN PRN PRN Reason: PROTOCOL Stop: 09/03/17 11:06 Morphine Sulfate (Morphine) 2 mg IVP Q4H PRN PRN Reason: moderate pain Stop: 08/30/17 22:07 Last Admin: 07/05/17 22:30 Dose: 2 mg Morphine Sulfate (Morphine) 2 mg IVP Q4HR PRN PRN Reason: PAIN Stop: 08/30/17 22:19 Multivitamins/Vitamin C (Theragran) 1 tab PO DAILY [facility] Stop: 08/31/17 08:59 Last Admin: 07/08/17 10:12 Dose: 1 tab Nicotine (Nicotine Transdermal System) 14 mg TD DAILY [facility] Stop: 09/04/17 08:59 Last Admin: 07/07/17 09:53 Dose: 14 mg Pantoprazole Sodium (Protonix) 40 mg IVP DAILY [facility] Stop: 09/04/17 08:59 Last Admin: 07/08/17 10:10 Dose: 40 mg Rivaroxaban (Xarelto) 10 mg PO DAILY [facility] Stop: 09/03/17 08:59 Last Admin: 07/08/17 10:11 Dose: 10 mg General: Other (intubated, cachectic appearing, not resposive) HEENT: Atraumatic, Other (no dc) Neck: Supple, no JVD, no Thyromegaly Cardiovascular: Regular rate, Other (in A fib) Lungs: Other (Intubated, has bl rales) Abdomen: Bowel sounds, Soft, no Tender, no Hepatomegaly Extremities: Edema, no Clubbing Neurological: Other (Pt unable to participate in test) Skin: no Rash Psych/Mental Status: Other (no psychosis) - Procedures Procedures: Procedures Procedure Code Date INSERT EMERGENCY AIRWAY 49354 07/01/17 INSERTION OF ENDOTRACHEAL AIRWAY INTO [place], VIA OPENING [id number] 07/01/17 RESPIRATORY VENTILATION, LESS THAN 24 CONSECUTIVE HOURS [id number] 07/01/17 VENT MGMT INPAT INIT DAY [id number] 07/01/17 Assessment/Plan - Problem List Patient Problems: All Active Problems WEAKESS AND POOR ORAL INTAKE (Acute) - Assessment Assessment: * Advanced metastatic cancer * poor functional status * Anemia likely of chronic disease * Respiratory failure s/p intubation 07/05 iron studies cw anemia of chronic disease. continue anticoagulation Nutritional Asmnt/Malnutr-PDOC - Dietary Evaluation Malnutrition Findings (Please click <Entered> for more info): Nutritional Asmnt/Malnutrition Start: 07/03/17 13: 22 Text: Status: Complete Freq: Document 07/03/17 13:22 MMKENY (Rec: 07/03/17 13:35 [email or web address] ELLER [email or web address]) Nutritional Asmnt/Malnutrition Patient General Information Nutritional Screening Consult Diagnosis UTI, Failure to thrive, hypokalemia Pertinent Medical Hx/Surgical Hx CAD, HTN, COPD, Stage 4 lung cancer, peripheral neuropathy, constipation, GERD, anxiety, low back pain Subjective Information Consult received for Failure to Thrive. Current Diet Order/ Nutrition Support Regular diet, pureed with mechaical soft Patient / S.O Not Indicated Pertinent Medications Vitamin C, dulcolax, D5-0.45 NS @ 75 ml/hr, colace, iron, folate, lactulose, theragran Pertinent Labs (07/02) P 1.5, Mg 1.7, albumin 2.9 Nutritional Hx/Data Height 1.6 m Height (Calculated Centimeters) 160.0 Current Weight (lbs) 54.885 kg Weight (Calculated Kilograms) 54.9 Weight (Calculated Grams) 56233.7 [place] Body Weight 115 % [place] Body Weight 105 Body Mass Index (BMI) 21.4 Recent Weight Change No Weight Status Approriate GI Symptoms GI Symptoms None Last BM Prior to admission Difficult in: None Food Allergies No Cultural/Ethnic/Hindu Belief None indicated Skin Integrity/Comment: Pradeep Cook Current %PO Poor (25-49%) Estimated Nutritional Goals BEE in Kcals: Using Current wt Calories/Kcals/Kg 55kg CBW (25-30kcal/kg) Kcals Calculated 9928-5132 kcal/day Protein: Using Current wt Protein g/k-1.2 gm/kg Protein Calculated 55-65 gm/day Fluid: ml 0690-6108 ml/day (1 ml/kcal) Nutritional Problem 2. Problem Problem Inadequate oral intake related to Etiology poor appetite aeb Signs/Symptoms: meeting <75% of estimated nutrient needs 1. Problem Problem Altered nutrition related lab values related to Etiology electrolyte imbalance aeb Signs/Symptoms: P 1.5, Mg 1.7 Intervention/Recommendation Comments 1. Continue pureed diet as tolerated by patient. 2. RN To assist with feedings and encourage oral intake. 3. Consider adding Boost plus between meals to optimize calorie and protein intake. Expected Outcomes/Goals Expected Outcomes/Goals Oral intake to meet >75% of needs, weight stable, nutrition labs WNL F/U MR 07/06-
[2017-07-08] MEDS: Hydrocodone/APAP 10 mg/325 mg Tab PO PRN (21:57)
[2017-07-09] MEDS: Albuterol/Ipratropium Neb 3 ML AERS HHN SCH ×4 (01:33→19:46)
[2017-07-09 05:12] LABS: HEMATOCRIT 24.2 % (41.0-60); HEMOGLOBIN 8.1 gm/dL (12-16); MEAN CORPUSCULAR HEMOGLOBIN 29.6 pg (27.0-31.0); MEAN CORPUSCULAR HGB CONC 33.7 pg (28.0-36.0); MEAN PLATELET VOLUME 7.4 fl; PLATELET COUNT 316 Th/cmm (150-400); RED BLOOD COUNT 2.75 Mil/cmm (3.80-5.20); RED CELL DISTRIBUTION WIDTH 15.6 % (11.5-20.0)
[2017-07-09 05:20] LABS: ANION GAP 10.9 (7.0-16.0); BUN - UREA NITROGEN 17 mg/dL (7-25); CALCIUM SERUM 7.8 mg/dL (8.6-10.3); CARBON DIOXIDE 19.7 mEq/L (21.0-31.0); CHLORIDE 105 mEq/L (98-107); CREATININE - SERUM 0.7 mg/dL (0.6-1.2); GLUCOSE 159 mg/dL (70-105); POTASSIUM SERUM 3.6 mEq/L (3.5-5.1); SODIUM SERUM 132 mEq/L (136-145)
[2017-07-09 05:21] LABS: MANUAL DIFF REQUIRED? YES; WHITE BLOOD COUNT 18.5 Th/cmm (4.8-10.8)
[2017-07-09 06:27] LABS: BAND NEUTROPHILE 3 % (0-10); EOSINOPHIL 1 % (0-5); LYMPHOCYTE 5 % (20-50); MONOCYTE 5 % (2-10); NEUTROPHILS 86 % (40-80); TOTAL CELLS COUNTED 100
[2017-07-09] MEDS: Budesonide 0.5 Mg/2 mL Ud HHN SCH ×2 (07:41→19:46)
[2017-07-09] MEDS: Chlorhexidine Gluconate 0.12% 15mL Mouthwash MM SCH ×2 (07:59→20:45)
[2017-07-09] MEDS: Lactobacillus Rhamnosus GG 15 Billion CFU CAP.SPRINK PO SCH (09:08)
[2017-07-09] MEDS: Multivitamin Tab PO SCH (09:09)
[2017-07-09] MEDS: Ferrous Sulfate 325 MG TAB PO SCH ×2 (09:09→16:34)
[2017-07-09] MEDS: Nicotine 14 mg/24 hr Tdm TD SCH (09:10)
[2017-07-09] MEDS: Cyproheptadine 4 mg Tab PO SCH ×2 (09:10→16:35)
--- NOTE | 2017-07-09 09:40 | General Progress Note ---
Subjective - Review of Systems Service Date: 07/09/17 Subjective: Pt seen and eval. In bed. Prior to being intubated, she could not hold up her head or feed herself. Incontinent. Seen by jayson, bren, and heme onc, all of whom agree with hospice care. Dr. Montanez discussed poor prog with son. No fevers or chills. WBC elevated, but improving. No falls. Pt went into A fib pm 07/04/16, and was transferred to ICU on digoxin. Intubated as of 07/05/17. Was on Amiodarone and Levophed drip, both of which are off as of 07/06/17. Pt is awake, but very weak. Objective - Results Result Diagrams: 07/09/17 04:35 07/09/17 04:35 Recent Labs: Laboratory Last Values WBC 18.5 Th/cmm (4.8-10.8) H 07/09/17 04:35 RBC 2.75 Mil/cmm (3.80-5.20) L 07/09/17 04:35 Hgb 8.1 gm/dL (12-16) L 07/09/17 04:35 Hct 24.2 % (41.0-60) L 07/09/17 04:35 MCV 88.0 fl (81-100) 07/09/17 04:35 MCH 29.6 pg (27.0-31.0) 07/09/17 04:35 MCHC Differential 33.7 pg (28.0-36.0) 07/09/17 04:35 RDW 15.6 % (11.5-20.0) 07/09/17 04:35 Plt Count 316 Th/cmm (150-400) 07/09/17 04:35 MPV 7.4 fl 07/09/17 04:35 Neutrophils % 90.2 % (40.0-80.0) H 07/07/17 05:35 Band Neutrophils % 3 % (0-10) 07/09/17 04:35 Lymphocytes % 3.8 % (20.0-50.0) L 07/07/17 05:35 Monocytes % 4.8 % (2.0-10.0) 07/07/17 05:35 Eosinophils % 1.0 % (0.0-5.0) 07/07/17 05:35 Basophils % 0.2 % (0.0-2.0) 07/07/17 05:35 Neutrophils (Manual) 86 % (40-80) H 07/09/17 04:35 Lymphocytes 5 % (20-50) L 07/09/17 04:35 Monocytes 5 % (2-10) 07/09/17 04:35 Eosinophils 1 % (0-5) 07/09/17 04:35 Basophils 0 % (0-3) 07/08/17 05:10 Specimen Source Arterial 07/08/17 11:40 Sample Site LB 07/08/17 11:40 pH 7.45 (7.35-7.45) 07/08/17 11:40 pCO2 30.0 mmHg (35.0-45.0) L 07/08/17 11:40 pO2 128.0 mmHg (80.0-100.0) H 07/08/17 11:40 HCO3 23.3 mEq/L (20.0-26.0) 07/08/17 11:40 Base Excess -2.2 mEq/L (-3.0-3.0) 07/08/17 11:40 O2 Saturation 99.0 % (92.0-100.0) 07/08/17 11:40 Darius Test NA 07/08/17 11:40 Vent Rate 14 07/08/17 11:40 Inspired O2 30 07/08/17 11:40 Tidal Volume 450 07/08/17 11:40 PEEP 5 07/08/17 11:40 Pressure (ins/psv/peep) NA 07/08/17 11:40 Critical Value E.GARCIA 07/08/17 11:40 Sodium 132 mEq/L (136-145) L 07/09/17 04:35 Potassium 3.6 mEq/L (3.5-5.1) 07/09/17 04:35 Chloride 105 mEq/L (98-107) 07/09/17 04:35 Carbon Dioxide 19.7 mEq/L (21.0-31.0) L 07/09/17 04:35 Anion Gap 10.9 (7.0-16.0) 07/09/17 04:35 BUN 17 mg/dL (7-25) 07/09/17 04:35 Creatinine 0.7 mg/dL (0.6-1.2) 07/09/17 04:35 Est GFR ( Amer) TNP 07/09/17 04:35 Est GFR (Non-Af Amer) TNP 07/09/17 04:35 BUN/Creatinine Ratio 24.3 07/09/17 04:35 Glucose 159 mg/dL (70-105) H 07/09/17 04:35 Whole Bld Lactic Acid 3.99 mmol/L (0.60-1.99) H* 07/05/17 13:00 Calcium 7.8 mg/dL (8.6-10.3) L 07/09/17 04:35 Phosphorus 1.5 mg/dL (2.5-5.0) L 07/02/17 05:20 Magnesium 1.7 mg/dL (1.9-2.7) L 07/02/17 05:20 Iron 21 07/03/17 05:48 TIBC 131 07/03/17 05:48 Iron Saturation 16 07/03/17 05:48 Unsaturated IBC 110 07/03/17 05:48 Ferritin 334 ng/mL (15-150) H 07/03/17 05:48 Total Bilirubin 0.5 mg/dL (0.3-1.0) 07/05/17 06:05 AST 16 U/L (13-39) 07/05/17 06:05 ALT 8 U/L (7-52) 07/05/17 06:05 Alkaline Phosphatase 66 U/L (34-104) 07/05/17 06:05 Troponin I 0.09 ng/mL (0.01-0.05) H* D 07/04/17 05:50 B-Natriuretic Peptide 215.0 pg/mL (5.0-100.0) H 07/01/17 14:10 Total Protein 5.6 gm/dL (6.0-8.3) L 07/05/17 06:05 Albumin 2.6 gm/dL (3.7-5.3) L 07/05/17 06:05 Globulin 3.0 gm/dL 07/05/17 06:05 Albumin/Globulin Ratio 0.9 (1.0-1.8) L 07/05/17 06:05 Triglycerides 107 mg/dL (<150) 07/04/17 05:50 Cholesterol 114 mg/dL (<200) 07/04/17 05:50 LDL Cholesterol Direct 59 mg/dL (75-193) L 07/04/17 05:50 HDL Cholesterol 31 mg/dL (23-92) 07/04/17 05:50 TSH 1.46 uIU/ml (0.34-5.60) 07/04/17 05:50 Urine Source CATH 07/05/17 18:30 Urine Color YELLOW 07/05/17 18:30 Urine Clarity CLOUDY (CLEAR) H 07/05/17 18:30 Urine pH 5.5 (4.6 - 8.0) 07/05/17 18:30 Ur Specific [place] 1.025 (1.005-1.030) 07/05/17 18:30 Urine Protein 30 mg/dL (NEGATIVE) H 07/05/17 18:30 Urine Glucose (UA) NEGATIVE mg/dL (NEGATIVE) 07/05/17 18:30 Urine Ketones TRACE mg/dL (NEGATIVE) 07/05/17 18:30 Urine Blood SMALL (NEGATIVE) H 07/05/17 18:30 Urine Nitrate NEGATIVE (NEGATIVE) 07/05/17 18:30 Urine Bilirubin NEGATIVE (NEGATIVE) 07/05/17 18:30 Urine Urobilinogen 0.2 E.U./dL (0.2 - 1.0) 07/05/17 18:30 Ur Leukocyte Esterase LARGE (NEGATIVE) H 07/05/17 18:30 Urine RBC 2-5 /hpf (0-5) 07/05/17 18:30 Urine WBC >100 /hpf (0-5) H 07/05/17 18:30 Ur Epithelial Cells FEW /lpf (FEW) 07/05/17 18:30 Urine Bacteria FEW /hpf (NONE SEEN) 07/05/17 18:30 Urine Yeast FEW /hpf (NONE SEEN) H 07/05/17 18:30 Vancomycin Trough 13.0 ug/mL (5-10) H 07/07/17 05:35 - Physical Exam Vitals and I&O: Vital Signs Temp 97 F 07/09/17 08:00 Pulse 84 07/09/17 08:00 Resp 17 07/09/17 08:00 BP 121/54 07/09/17 08:00 Pulse Ox 100 07/09/17 08:00 Intake & Output 07/08/17 07/09/17 07/09/17 18:59 06:59 18:59 Intake Total 827.5 2340 Output Total 700 0 Balance 827.5 1640 0 Weight (lbs) 54.93 kg 54.93 kg Intake: Intake, IV Amount 827.5 840 D5-0.45NS 1,000 ml @ 75 777.5 690 mls/hr IV .[id number] [facility] Rx #:[id number] Piperacillin Sodium/ 50 150 Tazobact 2.25 gm In Sodium Chloride 0.9% 50 ml @ 100 mls/hr IV Q6HR [facility] Rx#:[id number] Tube Feeding 1150 Other 350 Output: Urine 700 Stool 0 Other: # Bowel Movements 1 Stool Characteristics Formed Brown Weight Source Bedscale Bedscale Active Medications: Current Medications Acetaminophen (Tylenol) 650 mg PO Q4H PRN PRN Reason: Fever > 101 Stop: 08/30/17 22:06 Last Admin: 07/06/17 18:25 Dose: 650 mg Acetaminophen/Hydrocodone Bitart ([place] 10 Mg/325 Mg) 1 tab PO Q6H PRN PRN Reason: mod pain Stop: 08/30/17 22:07 Last Admin: 07/08/17 21:57 Dose: 1 tab Albuterol/Ipratropium (Duoneb Neb) 3 ml HHN Q4HRT PRN PRN Reason: Wheezing Stop: 08/30/17 22:13 Albuterol/Ipratropium (Duoneb Neb) 3 ml HHN Q6HRT [facility] Stop: 08/31/17 00:59 Last Admin: 07/09/17 07:41 Dose: 3 ml Ascorbic Acid (Vitamin C) 500 mg PO DAILY [facility] Stop: 08/31/17 08:59 Last Admin: 07/09/17 09:09 Dose: 500 mg Baclofen (Lioresal) 5 mg PO TID [facility] Stop: 09/06/17 08:59 Last Admin: 07/09/17 09:08 Dose: 5 mg Bisacodyl (Dulcolax 10 Mg Supp) 10 mg RC HS PRN PRN Reason: BOWEL CARE MANAGEMENT Stop: 08/30/17 22:18 Budesonide (Pulmicort) 0.5 mg HHN BIDRT [facility] Stop: 08/31/17 18:59 Last Admin: 07/09/17 07:41 Dose: 0.5 mg Chlorhexidine Gluconate (Peridex) 15 ml MM 08,1999 [facility] Stop: 09/03/17 19:59 Last Admin: 07/09/17 07:59 Dose: 15 ml Cyproheptadine HCl (Periactin) 4 mg PO BID [facility] Stop: 08/31/17 08:59 Last Admin: 07/09/17 09:10 Dose: 4 mg Docusate Sodium (Colace) 100 mg PO BID [facility] Stop: 08/31/17 08:59 Last Admin: 07/09/17 09:08 Dose: 100 mg Ferrous Sulfate (Iron) 325 mg PO BID [facility] Stop: 08/31/17 08:59 Last Admin: 07/09/17 09:09 Dose: 325 mg Folic Acid (Folate) 1 mg PO DAILY [facility] Stop: 08/31/17 08:59 Last Admin: 07/09/17 09:08 Dose: 1 mg Piperacillin Sod/Tazobactam (Sod 2.25 gm/ Sodium Chloride) 50 mls @ 100 mls/hr IV Q6HR [facility] Stop: 08/31/17 00:00 Last Infusion: 07/09/17 05:43 Dose: Infused Dextrose/Sodium Chloride (D5-0.45ns) 1,000 mls @ 75 mls/hr IV .[id number] [facility] Stop: 09/01/17 11:59 Last Infusion: 07/09/17 05:13 Dose: 75 mls/hr Amiodarone HCl 450 mg/ Sodium (Chloride) 259 mls @ 0 mls/hr IV TITR SHADI; Titrate PRN Reason: Protocol Stop: 09/03/17 16:29 Last Titration: 07/06/17 08:00 Dose: 0 mg/min, 0 mls/hr Norepinephrine Bitartrate 4 mg (/ Sodium Chloride) 254 mls @ 0 mls/hr IV TITR SHADI; Titrate PRN Reason: Protocol Stop: 09/03/17 16:29 Vancomycin HCl 1 gm/ Sodium (Chloride) 250 mls @ 165 mls/hr IV Q24H [facility] Stop: 09/07/17 09:59 Lactobacillus Rhamnosus (Culturelle 15b) 1 each PO DAILY [facility] Stop: 09/01/17 08:59 Last Admin: 07/09/17 09:08 Dose: 1 each Lactulose (Cephulac) 20 gm PO QID PRN PRN Reason: Constipation Stop: 08/30/17 22:18 Last Admin: 07/08/17 10:11 Dose: 20 gm Lorazepam (Ativan) 1 mg IVP Q4HR PRN; Protocol PRN Reason: Anxiety Stop: 09/04/17 08:31 Last Admin: 07/08/17 21:57 Dose: 1 mg Miscellaneous (Probiotic Screen) 1 ea MC PRN PRN PRN Reason: PROTOCOL Stop: 09/01/17 08:44 Miscellaneous (Vancomycin Iv Per Pharmacy) 1 ea MC PRN PRN PRN Reason: PROTOCOL Stop: 09/03/17 11:06 Morphine Sulfate (Morphine) 2 mg IVP Q4H PRN PRN Reason: moderate pain Stop: 08/30/17 22:07 Last Admin: 07/05/17 22:30 Dose: 2 mg Morphine Sulfate (Morphine) 2 mg IVP Q4HR PRN PRN Reason: PAIN Stop: 08/30/17 22:19 Multivitamins/Vitamin C (Theragran) 1 tab PO DAILY [facility] Stop: 08/31/17 08:59 Last Admin: 07/09/17 09:09 Dose: 1 tab Nicotine (Nicotine Transdermal System) 14 mg TD DAILY [facility] Stop: 09/04/17 08:59 Last Admin: 07/09/17 09:10 Dose: 14 mg Pantoprazole Sodium (Protonix) 40 mg IVP DAILY [facility] Stop: 09/04/17 08:59 Last Admin: 07/09/17 09:09 Dose: 40 mg Rivaroxaban (Xarelto) 10 mg PO DAILY [facility] Stop: 09/03/17 08:59 Last Admin: 07/09/17 09:08 Dose: 10 mg General: Other (intubated, cachectic appearing, not resposive) HEENT: Atraumatic, Other (no dc) Neck: Supple, no JVD, no Thyromegaly Cardiovascular: Regular rate, Other (in A fib) Lungs: Other (Intubated, has bl rales) Abdomen: Bowel sounds, Soft, no Tender, no Hepatomegaly Extremities: Edema, no Clubbing Neurological: Other (Pt unable to participate in test) Skin: no Rash Psych/Mental Status: Other (no psychosis) - Procedures Procedures: Procedures Procedure Code Date INSERT EMERGENCY AIRWAY 93406 07/01/17 INSERTION OF ENDOTRACHEAL AIRWAY INTO [place]HEA, VIA OPENING [id number] 07/01/17 RESPIRATORY VENTILATION, LESS THAN 24 CONSECUTIVE HOURS [id number] 07/01/17 VENT MGMT INPAT INIT DAY 20484 07/01/17 Assessment/Plan - Problem List Patient Problems: All Active Problems WEAKESS AND POOR ORAL INTAKE (Acute) - Assessment Assessment: Septic shock A fib with RVR Fail to thrive Stage 4 lung ca Sepsis due to E Coli UTI ME Ch pain syn Anemia of ch ill Hypernatremia Hypokalemia Type 2 RI A fib - Plan Plan: Pt holds a poor progonosis. Been trying to communicate poor prognosis to the son. He wants "everything done. " Cardio, Pulm, and Heme Onc seeing pt, all of whom agree with comfort care/ hospice. On IV Zosyn and Vanco. Has been on Amiodarone and Levphed drip in ICU-now off as off 07/06/17. Intubated on 07/05/17. Elec corrected. I's and O's reviewed. Vent settings reviewed. Vent: AC mode, rate 12 PEEP 5 FiO2 30% TV 450 Nutritional Asmnt/Malnutr-PDOC - Dietary Evaluation Malnutrition Findings (Please click <Entered> for more info): Nutritional Asmnt/Malnutrition Start: 07/03/17 13: 22 Text: Status: Complete Freq: Document 07/03/17 13:22 MMULHERN (Rec: 07/03/17 13:35 MMULHERJas ELLER- [email or web address]) Nutritional Asmnt/Malnutrition Patient General Information Nutritional Screening Consult Diagnosis UTI, Failure to thrive, hypokalemia Pertinent Medical Hx/Surgical Hx CAD, HTN, COPD, Stage 4 lung cancer, peripheral neuropathy, constipation, GERD, anxiety, low back pain Subjective Information Consult received for Failure to Thrive. Current Diet Order/ Nutrition Support Regular diet, pureed with mechaical soft Patient / S.O Not Indicated Pertinent Medications Vitamin C, dulcolax, D5-0.45 NS @ 75 ml/hr, colace, iron, folate, lactulose, theragran Pertinent Labs (07/02) P 1.5, Mg 1.7, albumin 2.9 Nutritional Hx/Data Height 1.6 m Height (Calculated Centimeters) 160.0 Current Weight (lbs) 54.885 kg Weight (Calculated Kilograms) 54.9 Weight (Calculated Grams) 31294.7 [place] Body Weight 115 % [place] Body Weight 105 Body Mass Index (BMI) 21.4 Recent Weight Change No Weight Status Approriate GI Symptoms GI Symptoms None Last BM Prior to admission Difficult in: None Food Allergies No Cultural/Ethnic/Quaker Belief None indicated Skin Integrity/Comment: Pradeep Cook Current %PO Poor (25-49%) Estimated Nutritional Goals BEE in Kcals: Using Current wt Calories/Kcals/Kg 55kg CBW (25-30kcal/kg) Kcals Calculated 8547-0890 kcal/day Protein: Using Current wt Protein g/k-1.2 gm/kg Protein Calculated 55-65 gm/day Fluid: ml 2986-9716 ml/day (1 ml/kcal) Nutritional Problem 2. Problem Problem Inadequate oral intake related to Etiology poor appetite aeb Signs/Symptoms: meeting <75% of estimated nutrient needs 1. Problem Problem Altered nutrition related lab values related to Etiology electrolyte imbalance aeb Signs/Symptoms: P 1.5, Mg 1.7 Intervention/Recommendation Comments 1. Continue pureed diet as tolerated by patient. 2. RN To assist with feedings and encourage oral intake. 3. Consider adding Boost plus between meals to optimize calorie and protein intake. Expected Outcomes/Goals Expected Outcomes/Goals Oral intake to meet >75% of needs, weight stable, nutrition labs WNL F/U MR 07/06-
[2017-07-09] MEDS: D5-0.45NS 1,000 ML IV SCH (10:00)
--- NOTE | 2017-07-09 11:53 | General Progress Note ---
Subjective - Review of Systems Service Date: 07/09/17 Subjective: unresponsive Objective - Results Result Diagrams: 07/09/17 04:35 07/09/17 04:35 Recent Labs: Laboratory Last Values WBC 18.5 Th/cmm (4.8-10.8) H 07/09/17 04:35 RBC 2.75 Mil/cmm (3.80-5.20) L 07/09/17 04:35 Hgb 8.1 gm/dL (12-16) L 07/09/17 04:35 Hct 24.2 % (41.0-60) L 07/09/17 04:35 MCV 88.0 fl (81-100) 07/09/17 04:35 MCH 29.6 pg (27.0-31.0) 07/09/17 04:35 MCHC Differential 33.7 pg (28.0-36.0) 07/09/17 04:35 RDW 15.6 % (11.5-20.0) 07/09/17 04:35 Plt Count 316 Th/cmm (150-400) 07/09/17 04:35 MPV 7.4 fl 07/09/17 04:35 Neutrophils % 90.2 % (40.0-80.0) H 07/07/17 05:35 Band Neutrophils % 3 % (0-10) 07/09/17 04:35 Lymphocytes % 3.8 % (20.0-50.0) L 07/07/17 05:35 Monocytes % 4.8 % (2.0-10.0) 07/07/17 05:35 Eosinophils % 1.0 % (0.0-5.0) 07/07/17 05:35 Basophils % 0.2 % (0.0-2.0) 07/07/17 05:35 Neutrophils (Manual) 86 % (40-80) H 07/09/17 04:35 Lymphocytes 5 % (20-50) L 07/09/17 04:35 Monocytes 5 % (2-10) 07/09/17 04:35 Eosinophils 1 % (0-5) 07/09/17 04:35 Basophils 0 % (0-3) 07/08/17 05:10 Specimen Source Arterial 07/08/17 11:40 Sample Site LB 07/08/17 11:40 pH 7.45 (7.35-7.45) 07/08/17 11:40 pCO2 30.0 mmHg (35.0-45.0) L 07/08/17 11:40 pO2 128.0 mmHg (80.0-100.0) H 07/08/17 11:40 HCO3 23.3 mEq/L (20.0-26.0) 07/08/17 11:40 Base Excess -2.2 mEq/L (-3.0-3.0) 07/08/17 11:40 O2 Saturation 99.0 % (92.0-100.0) 07/08/17 11:40 Darius Test NA 07/08/17 11:40 Vent Rate 14 07/08/17 11:40 Inspired O2 30 07/08/17 11:40 Tidal Volume 450 07/08/17 11:40 PEEP 5 07/08/17 11:40 Pressure (ins/psv/peep) NA 07/08/17 11:40 Critical Value E.GARCIA 07/08/17 11:40 Sodium 132 mEq/L (136-145) L 07/09/17 04:35 Potassium 3.6 mEq/L (3.5-5.1) 07/09/17 04:35 Chloride 105 mEq/L (98-107) 07/09/17 04:35 Carbon Dioxide 19.7 mEq/L (21.0-31.0) L 07/09/17 04:35 Anion Gap 10.9 (7.0-16.0) 07/09/17 04:35 BUN 17 mg/dL (7-25) 07/09/17 04:35 Creatinine 0.7 mg/dL (0.6-1.2) 07/09/17 04:35 Est GFR ( Amer) TNP 07/09/17 04:35 Est GFR (Non-Af Amer) TNP 07/09/17 04:35 BUN/Creatinine Ratio 24.3 07/09/17 04:35 Glucose 159 mg/dL (70-105) H 07/09/17 04:35 Whole Bld Lactic Acid 3.99 mmol/L (0.60-1.99) H* 07/05/17 13:00 Calcium 7.8 mg/dL (8.6-10.3) L 07/09/17 04:35 Phosphorus 1.5 mg/dL (2.5-5.0) L 07/02/17 05:20 Magnesium 1.7 mg/dL (1.9-2.7) L 07/02/17 05:20 Iron 21 07/03/17 05:48 TIBC 131 07/03/17 05:48 Iron Saturation 16 07/03/17 05:48 Unsaturated IBC 110 07/03/17 05:48 Ferritin 334 ng/mL (15-150) H 07/03/17 05:48 Total Bilirubin 0.5 mg/dL (0.3-1.0) 07/05/17 06:05 AST 16 U/L (13-39) 07/05/17 06:05 ALT 8 U/L (7-52) 07/05/17 06:05 Alkaline Phosphatase 66 U/L (34-104) 07/05/17 06:05 Troponin I 0.09 ng/mL (0.01-0.05) H* D 07/04/17 05:50 B-Natriuretic Peptide 215.0 pg/mL (5.0-100.0) H 07/01/17 14:10 Total Protein 5.6 gm/dL (6.0-8.3) L 07/05/17 06:05 Albumin 2.6 gm/dL (3.7-5.3) L 07/05/17 06:05 Globulin 3.0 gm/dL 07/05/17 06:05 Albumin/Globulin Ratio 0.9 (1.0-1.8) L 07/05/17 06:05 Triglycerides 107 mg/dL (<150) 07/04/17 05:50 Cholesterol 114 mg/dL (<200) 07/04/17 05:50 LDL Cholesterol Direct 59 mg/dL (75-193) L 07/04/17 05:50 HDL Cholesterol 31 mg/dL (23-92) 07/04/17 05:50 TSH 1.46 uIU/ml (0.34-5.60) 07/04/17 05:50 Urine Source CATH 07/05/17 18:30 Urine Color YELLOW 07/05/17 18:30 Urine Clarity CLOUDY (CLEAR) H 07/05/17 18:30 Urine pH 5.5 (4.6 - 8.0) 04/17/18 18:30 Ur Specific [place] 1.025 (1.005-1.030) 07/05/17 18:30 Urine Protein 30 mg/dL (NEGATIVE) H 07/05/17 18:30 Urine Glucose (UA) NEGATIVE mg/dL (NEGATIVE) 07/05/17 18:30 Urine Ketones TRACE mg/dL (NEGATIVE) 07/05/17 18:30 Urine Blood SMALL (NEGATIVE) H 07/05/17 18:30 Urine Nitrate NEGATIVE (NEGATIVE) 07/05/17 18:30 Urine Bilirubin NEGATIVE (NEGATIVE) 07/05/17 18:30 Urine Urobilinogen 0.2 E.U./dL (0.2 - 1.0) 07/05/17 18:30 Ur Leukocyte Esterase LARGE (NEGATIVE) H 07/05/17 18:30 Urine RBC 2-5 /hpf (0-5) 07/05/17 18:30 Urine WBC >100 /hpf (0-5) H 07/05/17 18:30 Ur Epithelial Cells FEW /lpf (FEW) 07/05/17 18:30 Urine Bacteria FEW /hpf (NONE SEEN) 07/05/17 18:30 Urine Yeast FEW /hpf (NONE SEEN) H 07/05/17 18:30 Vancomycin Trough 11.2 ug/mL (5-10) H 07/09/17 09:24 - Physical Exam Vitals and I&O: Vital Signs Temp 97 F 07/09/17 08:00 Pulse 87 07/09/17 11:27 Resp 19 07/09/17 10:00 BP 104/48 07/09/17 10:00 Pulse Ox 100 07/09/17 11:27 Intake & Output 07/08/17 07/09/17 07/09/17 18:59 06:59 18:59 Intake Total 827.5 2340 310 Output Total 700 0 Balance 827.5 1640 310 Weight (lbs) 54.93 kg 54.93 kg Intake: Intake, IV Amount 827.5 840 310 D5-0.45NS 1,000 ml @ 75 777.5 690 310 mls/hr IV .[id number] [facility] Rx #:[id number] Piperacillin Sodium/ 50 150 Tazobact 2.25 gm In Sodium Chloride 0.9% 50 ml @ 100 mls/hr IV Q6HR [facility] Rx#:[id number] Tube Feeding 1150 Other 350 Output: Urine 700 Stool 0 Other: # Bowel Movements 1 Stool Characteristics Formed Formed Brown Brown Weight Source Bedscale Bedscale Active Medications: Current Medications Acetaminophen (Tylenol) 650 mg PO Q4H PRN PRN Reason: Fever > 101 Stop: 08/30/17 22:06 Last Admin: 07/06/17 18:25 Dose: 650 mg Albuterol/Ipratropium (Duoneb Neb) 3 ml HHN Q4HRT PRN PRN Reason: Wheezing Stop: 08/30/17 22:13 Albuterol/Ipratropium (Duoneb Neb) 3 ml HHN Q6HRT [facility] Stop: 08/31/17 00:59 Last Admin: 07/09/17 07:41 Dose: 3 ml Ascorbic Acid (Vitamin C) 500 mg PO DAILY [facility] Stop: 08/31/17 08:59 Last Admin: 07/09/17 09:09 Dose: 500 mg Baclofen (Lioresal) 5 mg PO TID [facility] Stop: 09/06/17 08:59 Last Admin: 07/09/17 09:08 Dose: 5 mg Bisacodyl (Dulcolax 10 Mg Supp) 10 mg RC HS PRN PRN Reason: BOWEL CARE MANAGEMENT Stop: 08/30/17 22:18 Budesonide (Pulmicort) 0.5 mg HHN BIDRT [facility] Stop: 08/31/17 18:59 Last Admin: 07/09/17 07:41 Dose: 0.5 mg Chlorhexidine Gluconate (Peridex) 15 ml MM 0800,2000 [facility] Stop: 09/03/17 19:59 Last Admin: 07/09/17 07:59 Dose: 15 ml Cyproheptadine HCl (Periactin) 4 mg PO BID [facility] Stop: 08/31/17 08:59 Last Admin: 07/09/17 09:10 Dose: 4 mg Docusate Sodium (Colace) 100 mg PO BID [facility] Stop: 08/31/17 08:59 Last Admin: 07/09/17 09:08 Dose: 100 mg Ferrous Sulfate (Iron) 325 mg PO BID [facility] Stop: 08/31/17 08:59 Last Admin: 07/09/17 09:09 Dose: 325 mg Folic Acid (Folate) 1 mg PO DAILY [facility] Stop: 08/31/17 08:59 Last Admin: 07/09/17 09:08 Dose: 1 mg Piperacillin Sod/Tazobactam (Sod 2.25 gm/ Sodium Chloride) 50 mls @ 100 mls/hr IV Q6HR [facility] Stop: 08/31/17 00:00 Last Infusion: 07/09/17 05:43 Dose: Infused Dextrose/Sodium Chloride (D5-0.45ns) 1,000 mls @ 75 mls/hr IV .[id number] [facility] Stop: 09/01/17 11:59 Last Admin: 07/09/17 10:00 Dose: 75 mls/hr Amiodarone HCl 450 mg/ Sodium (Chloride) 259 mls @ 0 mls/hr IV TITR [facility]; Titrate PRN Reason: Protocol Stop: 09/03/17 16:29 Last Titration: 07/06/17 08:00 Dose: 0 mg/min, 0 mls/hr Norepinephrine Bitartrate 4 mg (/ Sodium Chloride) 254 mls @ 0 mls/hr IV TITR [facility]; Titrate PRN Reason: Protocol Stop: 09/03/17 16:29 Vancomycin HCl 1 gm/ Sodium (Chloride) 250 mls @ 165 mls/hr IV Q24H [facility] Stop: 09/07/17 09:59 Last Admin: 07/09/17 10:11 Dose: 165 mls/hr Lactobacillus Rhamnosus (Culturelle 15b) 1 each PO DAILY [facility] Stop: 09/01/17 08:59 Last Admin: 07/09/17 09:08 Dose: 1 each Lactulose (Cephulac) 20 gm PO QID PRN PRN Reason: Constipation Stop: 08/30/17 22:18 Last Admin: 07/08/17 10:11 Dose: 20 gm Lorazepam (Ativan) 1 mg IVP Q4HR PRN; Protocol PRN Reason: Anxiety Stop: 09/04/17 08:31 Last Admin: 07/08/17 21:57 Dose: 1 mg Miscellaneous (Probiotic Screen) 1 ea MC PRN PRN PRN Reason: PROTOCOL Stop: 09/01/17 08:44 Miscellaneous (Vancomycin Iv Per Pharmacy) 1 ea MC PRN PRN PRN Reason: PROTOCOL Stop: 09/03/17 11:06 Multivitamins/Vitamin C (Theragran) 1 tab PO DAILY [facility] Stop: 08/31/17 08:59 Last Admin: 04/21/18 09:09 Dose: 1 tab Nicotine (Nicotine Transdermal System) 14 mg TD DAILY [facility] Stop: 09/04/17 08:59 Last Admin: 07/09/17 09:10 Dose: 14 mg Pantoprazole Sodium (Protonix) 40 mg IVP DAILY [facility] Stop: 09/04/17 08:59 Last Admin: 07/09/17 09:09 Dose: 40 mg Rivaroxaban (Xarelto) 10 mg PO DAILY [facility] Stop: 09/03/17 08:59 Last Admin: 07/09/17 09:08 Dose: 10 mg General: Other (intubated, cachectic appearing, not resposive) HEENT: Atraumatic, Other (no dc) Neck: Supple, no JVD, no Thyromegaly Cardiovascular: Regular rate, Other (in A fib) Lungs: Other (Intubated, has bl rales) Abdomen: Bowel sounds, Soft, no Tender, no Hepatomegaly Extremities: Edema, no Clubbing Neurological: Other (Pt unable to participate in test) Skin: no Rash Psych/Mental Status: Other (no psychosis) - Procedures Procedures: Procedures Procedure Code Date INSERT EMERGENCY AIRWAY 46152 07/01/17 INSERTION OF ENDOTRACHEAL AIRWAY INTO [place]HE[place], VIA OPENING [id number] 07/01/17 RESPIRATORY VENTILATION, LESS THAN 24 CONSECUTIVE HOURS [id number] 07/01/17 VENT MGMT INPAT INIT DAY 38308 07/01/17 Assessment/Plan - Problem List Patient Problems: All Active Problems WEAKESS AND POOR ORAL INTAKE (Acute) - Assessment Assessment: * Advanced metastatic cancer * poor functional status * Anemia likely of chronic disease * Respiratory failure s/p intubation 07/05 iron studies cw anemia of chronic disease. continue anticoagulation Nutritional Asmnt/Malnutr-PDOC - Dietary Evaluation Malnutrition Findings (Please click <Entered> for more info): Nutritional Asmnt/Malnutrition Start: 07/03/17 13: 22 Text: Status: Complete Freq: Document 07/03/17 13:22 MMULJENN (Rec: 07/03/17 13:35 MMULJENN ELLER- FN) Nutritional Asmnt/Malnutrition Patient General Information Nutritional Screening Consult Diagnosis UTI, Failure to thrive, hypokalemia Pertinent Medical Hx/Surgical Hx CAD, HTN, COPD, Stage 4 lung cancer, peripheral neuropathy, constipation, GERD, anxiety, low back pain Subjective Information Consult received for Failure to Thrive. Current Diet Order/ Nutrition Support Regular diet, pureed with mechaical soft Patient / S.O Not Indicated Pertinent Medications Vitamin C, dulcolax, D5-0.45 NS @ 75 ml/hr, colace, iron, folate, lactulose, theragran Pertinent Labs (07/02) P 1.5, Mg 1.7, albumin 2.9 Nutritional Hx/Data Height 1.6 m Height (Calculated Centimeters) 160.0 Current Weight (lbs) 54.885 kg Weight (Calculated Kilograms) 54.9 Weight (Calculated Grams) 34244.7 [place] Body Weight 115 % [place] Body Weight 105 Body Mass Index (BMI) 21.4 Recent Weight Change No Weight Status Approriate GI Symptoms GI Symptoms None Last BM Prior to admission Difficult in: None Food Allergies No Cultural/Ethnic/Islam Belief None indicated Skin Integrity/Comment: Pradeep 15 Current %PO Poor (25-49%) Estimated Nutritional Goals BEE in Kcals: Using Current wt Calories/Kcals/Kg 55kg CBW (25-30kcal/kg) Kcals Calculated 6280-1693 kcal/day Protein: Using Current wt Protein g/k-1.2 gm/kg Protein Calculated 55-65 gm/day Fluid: ml 9954-0687 ml/day (1 ml/kcal) Nutritional Problem 2. Problem Problem Inadequate oral intake related to Etiology poor appetite aeb Signs/Symptoms: meeting <75% of estimated nutrient needs 1. Problem Problem Altered nutrition related lab values related to Etiology electrolyte imbalance aeb Signs/Symptoms: P 1.5, Mg 1.7 Intervention/Recommendation Comments 1. Continue pureed diet as tolerated by patient. 2. RN To assist with feedings and encourage oral intake. 3. Consider adding Boost plus between meals to optimize calorie and protein intake. Expected Outcomes/Goals Expected Outcomes/Goals Oral intake to meet >75% of needs, weight stable, nutrition labs WNL F/U MR 07/06-
--- NOTE | 2017-07-09 23:29 | Infectious Disease Prog Note ---
Infectious Disease Subjective - Review of Systems Service Date: 07/09/17 Subjective: There is no new change. Patient remains intubated orally, on the ventilator support. Infectious Disease Objective - Results Result Diagrams: 07/09/17 04:35 07/09/17 04:35 Recent Labs: Laboratory Last Values WBC 18.5 Th/cmm (4.8-10.8) H 07/09/17 04:35 RBC 2.75 Mil/cmm (3.80-5.20) L 07/09/17 04:35 Hgb 8.1 gm/dL (12-16) L 07/09/17 04:35 Hct 24.2 % (41.0-60) L 07/09/17 04:35 MCV 88.0 fl (81-100) 07/09/17 04:35 MCH 29.6 pg (27.0-31.0) 07/09/17 04:35 MCHC Differential 33.7 pg (28.0-36.0) 07/09/17 04:35 RDW 15.6 % (11.5-20.0) 07/09/17 04:35 Plt Count 316 Th/cmm (150-400) 07/09/17 04:35 MPV 7.4 fl 07/09/17 04:35 Neutrophils % 90.2 % (40.0-80.0) H 07/07/17 05:35 Band Neutrophils % 3 % (0-10) 07/09/17 04:35 Lymphocytes % 3.8 % (20.0-50.0) L 07/07/17 05:35 Monocytes % 4.8 % (2.0-10.0) 07/07/17 05:35 Eosinophils % 1.0 % (0.0-5.0) 07/07/17 05:35 Basophils % 0.2 % (0.0-2.0) 07/07/17 05:35 Neutrophils (Manual) 86 % (40-80) H 07/09/17 04:35 Lymphocytes 5 % (20-50) L 07/09/17 04:35 Monocytes 5 % (2-10) 07/09/17 04:35 Eosinophils 1 % (0-5) 07/09/17 04:35 Basophils 0 % (0-3) 07/08/17 05:10 Specimen Source Arterial 07/08/17 11:40 Sample Site LB 07/08/17 11:40 pH 7.45 (7.35-7.45) 07/08/17 11:40 pCO2 30.0 mmHg (35.0-45.0) L 07/08/17 11:40 pO2 128.0 mmHg (80.0-100.0) H 07/08/17 11:40 HCO3 23.3 mEq/L (20.0-26.0) 07/08/17 11:40 Base Excess -2.2 mEq/L (-3.0-3.0) 07/08/17 11:40 O2 Saturation 99.0 % (92.0-100.0) 07/08/17 11:40 Darius Test NA 07/08/17 11:40 Vent Rate 14 07/08/17 11:40 Inspired O2 30 07/08/17 11:40 Tidal Volume 450 07/08/17 11:40 PEEP 5 07/08/17 11:40 Pressure (ins/psv/peep) NA 07/08/17 11:40 Critical Value E.GARCIA 07/08/17 11:40 Sodium 132 mEq/L (136-145) L 07/09/17 04:35 Potassium 3.6 mEq/L (3.5-5.1) 07/09/17 04:35 Chloride 105 mEq/L (98-107) 07/09/17 04:35 Carbon Dioxide 19.7 mEq/L (21.0-31.0) L 07/09/17 04:35 Anion Gap 10.9 (7.0-16.0) 07/09/17 04:35 BUN 17 mg/dL (7-25) 07/09/17 04:35 Creatinine 0.7 mg/dL (0.6-1.2) 07/09/17 04:35 Est GFR ( Amer) TNP 07/09/17 04:35 Est GFR (Non-Af Amer) TNP 07/09/17 04:35 BUN/Creatinine Ratio 24.3 07/09/17 04:35 Glucose 159 mg/dL (70-105) H 07/09/17 04:35 Whole Bld Lactic Acid 3.99 mmol/L (0.60-1.99) H* 07/05/17 13:00 Calcium 7.8 mg/dL (8.6-10.3) L 07/09/17 04:35 Phosphorus 1.5 mg/dL (2.5-5.0) L 07/02/17 05:20 Magnesium 1.7 mg/dL (1.9-2.7) L 07/02/17 05:20 Iron 21 07/03/17 05:48 TIBC 131 07/03/17 05:48 Iron Saturation 16 07/03/17 05:48 Unsaturated IBC 110 07/03/17 05:48 Ferritin 334 ng/mL (15-150) H 07/03/17 05:48 Total Bilirubin 0.5 mg/dL (0.3-1.0) 07/05/17 06:05 AST 16 U/L (13-39) 07/05/17 06:05 ALT 8 U/L (7-52) 07/05/17 06:05 Alkaline Phosphatase 66 U/L (34-104) 07/05/17 06:05 Troponin I 0.09 ng/mL (0.01-0.05) H* D 07/04/17 05:50 B-Natriuretic Peptide 215.0 pg/mL (5.0-100.0) H 07/01/17 14:10 Total Protein 5.6 gm/dL (6.0-8.3) L 07/05/17 06:05 Albumin 2.6 gm/dL (3.7-5.3) L 07/05/17 06:05 Globulin 3.0 gm/dL 07/05/17 06:05 Albumin/Globulin Ratio 0.9 (1.0-1.8) L 07/05/17 06:05 Triglycerides 107 mg/dL (<150) 07/04/17 05:50 Cholesterol 114 mg/dL (<200) 07/04/17 05:50 LDL Cholesterol Direct 59 mg/dL (75-193) L 07/04/17 05:50 HDL Cholesterol 31 mg/dL (23-92) 07/04/17 05:50 TSH 1.46 uIU/ml (0.34-5.60) 07/04/17 05:50 Urine Source CATH 07/05/17 18:30 Urine Color YELLOW 07/05/17 18:30 Urine Clarity CLOUDY (CLEAR) H 07/05/17 18:30 Urine pH 5.5 (4.6 - 8.0) 07/05/17 18:30 Ur Specific [place] 1.025 (1.005-1.030) 07/05/17 18:30 Urine Protein 30 mg/dL (NEGATIVE) H 07/05/17 18:30 Urine Glucose (UA) NEGATIVE mg/dL (NEGATIVE) 07/05/17 18:30 Urine Ketones TRACE mg/dL (NEGATIVE) 07/05/17 18:30 Urine Blood SMALL (NEGATIVE) H 07/05/17 18:30 Urine Nitrate NEGATIVE (NEGATIVE) 07/05/17 18:30 Urine Bilirubin NEGATIVE (NEGATIVE) 07/05/17 18:30 Urine Urobilinogen 0.2 E.U./dL (0.2 - 1.0) 07/05/17 18:30 Ur Leukocyte Esterase LARGE (NEGATIVE) H 07/05/17 18:30 Urine RBC 2-5 /hpf (0-5) 07/05/17 18:30 Urine WBC >100 /hpf (0-5) H 07/05/17 18:30 Ur Epithelial Cells FEW /lpf (FEW) 07/05/17 18:30 Urine Bacteria FEW /hpf (NONE SEEN) 07/05/17 18:30 Urine Yeast FEW /hpf (NONE SEEN) H 07/05/17 18:30 Vancomycin Trough 11.2 ug/mL (5-10) H 07/09/17 09:24 - Physical Exam Vitals and I&O: Vital Signs Temp 100.1 F 07/09/17 16:00 Pulse 98 07/09/17 21:25 Resp 32 07/09/17 18:00 BP 98/50 07/09/17 18:00 Pulse Ox 100 07/09/17 21:25 Intake & Output 07/09/17 07/09/17 07/10/17 06:59 18:59 06:59 Intake Total 2340 1300 Output Total 700 800 Balance 1640 500 Weight (lbs) 54.93 kg 60.872 kg Intake: Intake, IV Amount 840 560 D5-0.45NS 1,000 ml @ 75 690 310 mls/hr IV .[id number] [facility] Rx #:[id number] Piperacillin Sodium/ 150 Tazobact 2.25 gm In Sodium Chloride 0.9% 50 ml @ 100 mls/hr IV Q6HR [facility] Rx#:[id number] Vancomycin HCl 1 gm In 250 Sodium Chloride 0.9% 250 ml @ 165 mls/hr IV Q24H [facility] [place] Rx#:[id number] Tube Feeding 1150 600 Other 350 140 Output: Urine 700 800 Stool 0 Other: # Bowel Movements 1 1 Stool Characteristics Formed Formed Brown Brown Weight Source Bedscale Bedscale Active Medications: Current Medications Acetaminophen (Tylenol) 650 mg PO Q4H PRN PRN Reason: Fever > 101 Stop: 08/30/17 22:06 Last Admin: 07/09/17 16:35 Dose: 650 mg Albuterol/Ipratropium (Duoneb Neb) 3 ml HHN Q4HRT PRN PRN Reason: Wheezing Stop: 08/30/17 22:13 Albuterol/Ipratropium (Duoneb Neb) 3 ml HHN Q6HRT [facility] [place] Stop: 08/31/17 00:59 Last Admin: 07/09/17 19:46 Dose: 3 ml Ascorbic Acid (Vitamin C) 500 mg PO DAILY [facility] [place] Stop: 08/31/17 08:59 Last Admin: 07/09/17 09:09 Dose: 500 mg Baclofen (Lioresal) 5 mg PO TID [facility] [place] Stop: 09/06/17 08:59 Last Admin: 07/09/17 14:02 Dose: 5 mg Bisacodyl (Dulcolax 10 Mg Supp) 10 mg RC HS PRN PRN Reason: BOWEL CARE MANAGEMENT Stop: 08/30/17 22:18 Budesonide (Pulmicort) 0.5 mg HHN BIDRT [facility] [place] Stop: 08/31/17 18:59 Last Admin: 07/09/17 19:46 Dose: 0.5 mg Chlorhexidine Gluconate (Peridex) 15 ml MM 0800,1999 [facility] [place] Stop: 09/03/17 19:59 Last Admin: 07/09/17 20:45 Dose: 15 ml Cyproheptadine HCl (Periactin) 4 mg PO BID [facility] [place] Stop: 08/31/17 08:59 Last Admin: 07/09/17 16:35 Dose: 4 mg Docusate Sodium (Colace) 100 mg PO BID [facility] [place] Stop: 08/31/17 08:59 Last Admin: 07/09/17 16:34 Dose: 100 mg Ferrous Sulfate (Iron) 325 mg PO BID [facility] [place] Stop: 08/31/17 08:59 Last Admin: 07/09/17 16:34 Dose: 325 mg Folic Acid (Folate) 1 mg PO DAILY [facility] Stop: 08/31/17 08:59 Last Admin: 07/09/17 09:08 Dose: 1 mg Dextrose/Sodium Chloride (D5-0.45ns) 1,000 mls @ 75 mls/hr IV .[id number] [facility] Stop: 09/01/17 11:59 Last Admin: 07/09/17 10:00 Dose: 75 mls/hr Amiodarone HCl 450 mg/ Sodium (Chloride) 259 mls @ 0 mls/hr IV TITR [facility]; Titrate PRN Reason: Protocol Stop: 09/03/17 16:29 Last Titration: 07/06/17 08:00 Dose: 0 mg/min, 0 mls/hr Norepinephrine Bitartrate 4 mg (/ Sodium Chloride) 254 mls @ 0 mls/hr IV TITR [facility]; Titrate PRN Reason: Protocol Stop: 09/03/17 16:29 Vancomycin HCl 1 gm/ Sodium (Chloride) 250 mls @ 165 mls/hr IV Q24H [facility] Stop: 09/07/17 09:59 Last Infusion: 07/09/17 11:42 Dose: Infused Lactobacillus Rhamnosus (Culturelle 15b) 1 each PO DAILY [facility] Stop: 09/01/17 08:59 Last Admin: 07/09/17 09:08 Dose: 1 each Lactulose (Cephulac) 20 gm PO QID PRN PRN Reason: Constipation Stop: 08/30/17 22:18 Last Admin: 07/08/17 10:11 Dose: 20 gm Lorazepam (Ativan) 1 mg IVP Q4HR PRN; Protocol PRN Reason: Anxiety Stop: 09/04/17 08:31 Last Admin: 07/08/17 21:57 Dose: 1 mg Miscellaneous (Probiotic Screen) 1 ea MC PRN PRN PRN Reason: PROTOCOL Stop: 09/01/17 08:44 Miscellaneous (Vancomycin Iv Per Pharmacy) 1 ea MC PRN PRN PRN Reason: PROTOCOL Stop: 09/03/17 11:06 Multivitamins/Vitamin C (Theragran) 1 tab PO DAILY [facility] Stop: 08/31/17 08:59 Last Admin: 07/09/17 09:09 Dose: 1 tab Nicotine (Nicotine Transdermal System) 14 mg TD DAILY [facility] [place] Stop: 09/04/17 08:59 Last Admin: 07/09/17 09:10 Dose: 14 mg Pantoprazole Sodium (Protonix) 40 mg IVP DAILY [facility] [place] Stop: 09/04/17 08:59 Last Admin: 07/09/17 09:09 Dose: 40 mg Rivaroxaban (Xarelto) 10 mg PO DAILY [facility] [place] Stop: 09/03/17 08:59 Last Admin: 07/09/17 09:08 Dose: 10 mg General: no acute distress, well developed, well nourished HEENT: atraumatic, normocephalic, PERRLA Neck: supple, no thyromegaly, no lymphadenopathy, no rigid, no lines Cardiovascular: S1S2, regular Lungs: clear to auscultation bilaterally, clear to percussion, crackles Abdomen: soft, no tender, no distended Extremities: no cyanosis, no clubbing, no edema, no lines Neurological: oriented, CN 2-12 intact, other (CONFUSED.) - Procedures Procedures: Procedures Procedure Code Date INSERT EMERGENCY AIRWAY 33706 07/01/17 INSERTION OF ENDOTRACHEAL AIRWAY INTO [place], VIA OPENING [id number] 07/01/17 RESPIRATORY VENTILATION, LESS THAN 24 CONSECUTIVE HOURS [id number] 07/01/17 VENT MGMT INPAT INIT DAY [id number] 07/01/17 Infectious Disease Assmt/Plan - Problem List Patient Problems: All Active Problems WEAKESS AND POOR ORAL INTAKE (Acute) - Assessment Assessment: 1. Leukocytosis. Fever, sepsis. 2. Pneumonia. 3. Stage IV lung CA. 4. Protein calorie malnutrion, 5. VDRF. 6. ALTERED MENTAL STATUS. - Plan Plan: Continue Zosyn, and vancomycin IV. SUPPORTIVE CARE. Nutritional Asmnt/Malnutr-PDOC - Dietary Evaluation Malnutrition Findings (Please click <Entered> for more info): Nutritional Asmnt/Malnutrition Start: 07/03/17 13: 22 Text: Status: Complete Freq: Document 07/03/17 13:22 MMULHERN (Rec: 07/03/17 13:35 MMULJENN ELLER- [email or web address]) Nutritional Asmnt/Malnutrition Patient General Information Nutritional Screening Consult Diagnosis UTI, Failure to thrive, hypokalemia Pertinent Medical Hx/Surgical Hx CAD, HTN, COPD, Stage 4 lung cancer, peripheral neuropathy, constipation, GERD, anxiety, low back pain Subjective Information Consult received for Failure to Thrive. Current Diet Order/ Nutrition Support Regular diet, pureed with mechaical soft Patient / S.O Not Indicated Pertinent Medications Vitamin C, dulcolax, D5-0.45 NS @ 75 ml/hr, colace, iron, folate, lactulose, theragran Pertinent Labs (07/02) P 1.5, Mg 1.7, albumin 2.9 Nutritional Hx/Data Height 1.6 m Height (Calculated Centimeters) 160.0 Current Weight (lbs) 54.885 kg Weight (Calculated Kilograms) 54.9 Weight (Calculated Grams) 51074.7 [place] Body Weight 115 % [place] Body Weight 105 Body Mass Index (BMI) 21.4 Recent Weight Change No Weight Status Approriate GI Symptoms GI Symptoms None Last BM Prior to admission Difficult in: None Food Allergies No Cultural/Ethnic/L[employer] Belief None indicated Skin Integrity/Comment: Pradeep 15 Current %PO Poor (25-49%) Estimated Nutritional Goals BEE in Kcals: Using Current wt Calories/Kcals/Kg 55kg CBW (25-30kcal/kg) Kcals Calculated 4824-2308 kcal/day Protein: Using Current wt Protein g/k-1.2 gm/kg Protein Calculated 55-65 gm/day Fluid: ml 4407-2833 ml/day (1 ml/kcal) Nutritional Problem 2. Problem Problem Inadequate oral intake related to Etiology poor appetite aeb Signs/Symptoms: meeting <75% of estimated nutrient needs 1. Problem Problem Altered nutrition related lab values related to Etiology electrolyte imbalance aeb Signs/Symptoms: P 1.5, Mg 1.7 Intervention/Recommendation Comments 1. Continue pureed diet as tolerated by patient. 2. RN To assist with feedings and encourage oral intake. 3. Consider adding Boost plus between meals to optimize calorie and protein intake. Expected Outcomes/Goals Expected Outcomes/Goals Oral intake to meet >75% of needs, weight stable, nutrition labs WNL F/U MR 07/06-
[2017-07-10] MEDS: Albuterol/Ipratropium Neb 3 ML AERS HHN SCH ×4 (01:43→19:02)
[2017-07-10] MEDS: D5-0.45NS 1,000 ML IV SCH ×2 (02:00→10:32)
[2017-07-10 04:43] LABS: RED CELL DISTRIBUTION WIDTH 15.8 % (11.5-20.0)
[2017-07-10 05:04] LABS: HEMATOCRIT 25.9 % (41.0-60); HEMOGLOBIN 8.4 gm/dL (12-16); MEAN CELL VOLUME 88.3 fl (81-100); MEAN CORPUSCULAR HEMOGLOBIN 28.5 pg (27.0-31.0); MEAN CORPUSCULAR HGB CONC 32.3 pg (28.0-36.0); MEAN PLATELET VOLUME 7.5 fl; RED BLOOD COUNT 2.93 Mil/cmm (3.80-5.20)
[2017-07-10 05:12] LABS: ANION GAP 10.8 (7.0-16.0); BUN - UREA NITROGEN 18 mg/dL (7-25); CALCIUM SERUM 7.9 mg/dL (8.6-10.3); CARBON DIOXIDE 22.9 mEq/L (21.0-31.0); CHLORIDE 106 mEq/L (98-107); CREATININE - SERUM 0.7 mg/dL (0.6-1.2); GLUCOSE 127 mg/dL (70-105); POTASSIUM SERUM 3.7 mEq/L (3.5-5.1); SODIUM SERUM 136 mEq/L (136-145)
[2017-07-10 05:28] LABS: MANUAL DIFF REQUIRED? YES; PLATELET COUNT 215 Th/cmm (150-400); WHITE BLOOD COUNT 20.3 Th/cmm (4.8-10.8)
[2017-07-10 07:27] LABS: BAND NEUTROPHILE 3 % (0-10); EOSINOPHIL 3 % (0-5); LYMPHOCYTE 5 % (20-50); MONOCYTE 3 % (2-10); NEUTROPHILS 86 % (40-80); TOTAL CELLS COUNTED 100
[2017-07-10] MEDS: Chlorhexidine Gluconate 0.12% 15mL Mouthwash MM SCH ×2 (08:06→21:00)
--- NOTE | 2017-07-10 09:22 | Diagnostic Imaging Report ---
CHEST X-RAY: AP view INDICATION: Shortness of breath COMPARISON: 07/06/2017 FINDINGS: NG tube is been removed. ET tube is seen with tip 3.5 cm above the Izzy. COPD lung changes are seen. Left prominent suprahilar density is noted. Heart size normal. Atherosclerosis is noted. IMPRESSION: Prominent left suprahilar density. Mass lesion or lymphadenopathy cannot be excluded. Recommend further assessment with CT of the chest, preferably with IV contrast. ET tube with tip 3.5 cm the izzy.
--- NOTE | 2017-07-10 09:35 | General Progress Note ---
Subjective - Review of Systems Service Date: 07/10/17 Subjective: Pt seen and eval. In bed. Prior to being intubated, she could not hold up her head or feed herself. Incontinent. Seen by jayson, bren, and heme onc, all of whom agree with hospice care. Dr. Montanez discussed poor prog with son. No fevers or chills. WBC elevated. No falls. Pt went into A fib pm 07/04/16, and was transferred to ICU on digoxin. Intubated as of 07/05/17. Was on Amiodarone and Levophed drip, both of which are off as of 07/06/17. Pt is no longer awake. She's unresponsive. Objective - Results Result Diagrams: 07/10/17 04:15 07/10/17 04:15 Recent Labs: Laboratory Last Values WBC 20.3 Th/cmm (4.8-10.8) H* 07/10/17 04:15 RBC 2.93 Mil/cmm (3.80-5.20) L 07/10/17 04:15 Hgb 8.4 gm/dL (12-16) L 07/10/17 04:15 Hct 25.9 % (41.0-60) L 07/10/17 04:15 MCV 88.3 fl (81-100) 07/10/17 04:15 MCH 28.5 pg (27.0-31.0) 07/10/17 04:15 MCHC Differential 32.3 pg (28.0-36.0) 07/10/17 04:15 RDW 15.8 % (11.5-20.0) 07/10/17 04:15 Plt Count 215 Th/cmm (150-400) D 07/10/17 04:15 MPV 7.5 fl 07/10/17 04:15 Neutrophils % 90.2 % (40.0-80.0) H 07/07/17 05:35 Band Neutrophils % 3 % (0-10) 07/10/17 04:15 Lymphocytes % 3.8 % (20.0-50.0) L 07/07/17 05:35 Monocytes % 4.8 % (2.0-10.0) 07/07/17 05:35 Eosinophils % 1.0 % (0.0-5.0) 07/07/17 05:35 Basophils % 0.2 % (0.0-2.0) 07/07/17 05:35 Neutrophils (Manual) 86 % (40-80) H 07/10/17 04:15 Lymphocytes 5 % (20-50) L 07/10/17 04:15 Monocytes 3 % (2-10) 07/10/17 04:15 Eosinophils 3 % (0-5) 07/10/17 04:15 Basophils 0 % (0-3) 07/08/17 05:10 Specimen Source Arterial 07/08/17 11:40 Sample Site LB 07/08/17 11:40 pH 7.45 (7.35-7.45) 07/08/17 11:40 pCO2 30.0 mmHg (35.0-45.0) L 07/08/17 11:40 pO2 128.0 mmHg (80.0-100.0) H 07/08/17 11:40 HCO3 23.3 mEq/L (20.0-26.0) 07/08/17 11:40 Base Excess -2.2 mEq/L (-3.0-3.0) 07/08/17 11:40 O2 Saturation 99.0 % (92.0-100.0) 07/08/17 11:40 Darius Test NA 07/08/17 11:40 Vent Rate 14 07/08/17 11:40 Inspired O2 30 07/08/17 11:40 Tidal Volume 450 07/08/17 11:40 PEEP 5 07/08/17 11:40 Pressure (ins/psv/peep) NA 07/08/17 11:40 Critical Value E.GARCIA 07/08/17 11:40 Sodium 136 mEq/L (136-145) 07/10/17 04:15 Potassium 3.7 mEq/L (3.5-5.1) 07/10/17 04:15 Chloride 106 mEq/L (98-107) 07/10/17 04:15 Carbon Dioxide 22.9 mEq/L (21.0-31.0) 07/10/17 04:15 Anion Gap 10.8 (7.0-16.0) 07/10/17 04:15 BUN 18 mg/dL (7-25) 07/10/17 04:15 Creatinine 0.7 mg/dL (0.6-1.2) 07/10/17 04:15 Est GFR ( Amer) TNP 07/10/17 04:15 Est GFR (Non-Af Amer) TNP 07/10/17 04:15 BUN/Creatinine Ratio 25.7 07/10/17 04:15 Glucose 127 mg/dL (70-105) H 07/10/17 04:15 Whole Bld Lactic Acid 3.99 mmol/L (0.60-1.99) H* 07/05/17 13:00 Calcium 7.9 mg/dL (8.6-10.3) L 07/10/17 04:15 Phosphorus 1.5 mg/dL (2.5-5.0) L 07/02/17 05:20 Magnesium 1.7 mg/dL (1.9-2.7) L 07/02/17 05:20 Iron 21 07/03/17 05:48 TIBC 131 07/03/17 05:48 Iron Saturation 16 07/03/17 05:48 Unsaturated IBC 110 07/03/17 05:48 Ferritin 334 ng/mL (15-150) H 07/03/17 05:48 Total Bilirubin 0.5 mg/dL (0.3-1.0) 07/05/17 06:05 AST 16 U/L (13-39) 07/05/17 06:05 ALT 8 U/L (7-52) 07/05/17 06:05 Alkaline Phosphatase 66 U/L (34-104) 07/05/17 06:05 Troponin I 0.09 ng/mL (0.01-0.05) H* D 07/04/17 05:50 B-Natriuretic Peptide 215.0 pg/mL (5.0-100.0) H 07/01/17 14:10 Total Protein 5.6 gm/dL (6.0-8.3) L 07/05/17 06:05 Albumin 2.6 gm/dL (3.7-5.3) L 07/05/17 06:05 Globulin 3.0 gm/dL 07/05/17 06:05 Albumin/Globulin Ratio 0.9 (1.0-1.8) L 07/05/17 06:05 Triglycerides 107 mg/dL (<150) 07/04/17 05:50 Cholesterol 114 mg/dL (<200) 07/04/17 05:50 LDL Cholesterol Direct 59 mg/dL (75-193) L 07/04/17 05:50 HDL Cholesterol 31 mg/dL (23-92) 07/04/17 05:50 TSH 1.46 uIU/ml (0.34-5.60) 07/04/17 05:50 Urine Source CATH 07/05/17 18:30 Urine Color YELLOW 07/05/17 18:30 Urine Clarity CLOUDY (CLEAR) H 07/05/17 18:30 Urine pH 5.5 (4.6 - 8.0) 07/05/17 18:30 Ur Specific [place] 1.025 (1.005-1.030) 07/05/17 18:30 Urine Protein 30 mg/dL (NEGATIVE) H 07/05/17 18:30 Urine Glucose (UA) NEGATIVE mg/dL (NEGATIVE) 07/05/17 18:30 Urine Ketones TRACE mg/dL (NEGATIVE) 07/05/17 18:30 Urine Blood SMALL (NEGATIVE) H 07/05/17 18:30 Urine Nitrate NEGATIVE (NEGATIVE) 07/05/17 18:30 Urine Bilirubin NEGATIVE (NEGATIVE) 07/05/17 18:30 Urine Urobilinogen 0.2 E.U./dL (0.2 - 1.0) 07/05/17 18:30 Ur Leukocyte Esterase LARGE (NEGATIVE) H 07/05/17 18:30 Urine RBC 2-5 /hpf (0-5) 07/05/17 18:30 Urine WBC >100 /hpf (0-5) H 07/05/17 18:30 Ur Epithelial Cells FEW /lpf (FEW) 07/05/17 18:30 Urine Bacteria FEW /hpf (NONE SEEN) 07/05/17 18:30 Urine Yeast FEW /hpf (NONE SEEN) H 07/05/17 18:30 Vancomycin Trough 11.2 ug/mL (5-10) H 07/09/17 09:24 - Physical Exam Vitals and I&O: Vital Signs Temp 98 F 07/10/17 04:00 Pulse 84 07/10/17 09:03 Resp 22 07/10/17 06:00 BP 120/60 07/10/17 06:00 Pulse Ox 100 07/10/17 09:03 Intake & Output 07/09/17 07/10/17 07/10/17 18:59 06:59 18:59 Intake Total 1300 1000 Output Total 800 950 Balance 500 1000 -950 Weight (lbs) 60.872 kg 59.421 kg Intake: Intake, IV Amount 560 1000 D5-0.45NS 1,000 ml @ 75 310 1000 mls/hr IV .[id number] [facility] Rx #:[id number] Vancomycin HCl 1 gm In 250 Sodium Chloride 0.9% 250 ml @ 165 mls/hr IV Q24H [facility] Rx#:[id number] Tube Feeding 600 Other 140 Output: Urine 800 950 Stool 0 Other: # Bowel Movements 1 1 Stool Characteristics Formed Formed Brown Brown Weight Source Bedscale Bedscale Active Medications: Current Medications Acetaminophen (Tylenol) 650 mg PO Q4H PRN PRN Reason: Fever > 101 Stop: 08/30/17 22:06 Last Admin: 07/09/17 16:35 Dose: 650 mg Albuterol/Ipratropium (Duoneb Neb) 3 ml HHN Q4HRT PRN PRN Reason: Wheezing Stop: 08/30/17 22:13 Albuterol/Ipratropium (Duoneb Neb) 3 ml HHN Q6HRT [facility] Stop: 08/31/17 00:59 Last Admin: 07/10/17 06:43 Dose: 3 ml Ascorbic Acid (Vitamin C) 500 mg PO DAILY [facility] Stop: 08/31/17 08:59 Last Admin: 07/09/17 09:09 Dose: 500 mg Baclofen (Lioresal) 5 mg PO TID [facility] Stop: 09/06/17 08:59 Last Admin: 07/10/17 06:02 Dose: Not Given Bisacodyl (Dulcolax 10 Mg Supp) 10 mg RC HS PRN PRN Reason: BOWEL CARE MANAGEMENT Stop: 08/30/17 22:18 Budesonide (Pulmicort) 0.5 mg HHN BIDRT [facility] Stop: 08/31/17 18:59 Last Admin: 07/09/17 19:46 Dose: 0.5 mg Chlorhexidine Gluconate (Peridex) 15 ml MM 0800,2000 [facility] Stop: 09/03/17 19:59 Last Admin: 07/10/17 08:06 Dose: 15 ml Cyproheptadine HCl (Periactin) 4 mg PO BID [facility] Stop: 08/31/17 08:59 Last Admin: 07/09/17 16:35 Dose: 4 mg Docusate Sodium (Colace) 100 mg PO BID [facility] Stop: 08/31/17 08:59 Last Admin: 07/09/17 16:34 Dose: 100 mg Ferrous Sulfate (Iron) 325 mg PO BID [facility] Stop: 08/31/17 08:59 Last Admin: 07/09/17 16:34 Dose: 325 mg Folic Acid (Folate) 1 mg PO DAILY [facility] Stop: 08/31/17 08:59 Last Admin: 07/09/17 09:08 Dose: 1 mg Dextrose/Sodium Chloride (D5-0.45ns) 1,000 mls @ 75 mls/hr IV .[id number] [facility] Stop: 09/01/17 11:59 Last Admin: 07/10/17 02:00 Dose: 75 mls/hr Amiodarone HCl 450 mg/ Sodium (Chloride) 259 mls @ 0 mls/hr IV TITR [facility]; Titrate PRN Reason: Protocol Stop: 09/03/17 16:29 Last Titration: 07/06/17 08:00 Dose: 0 mg/min, 0 mls/hr Norepinephrine Bitartrate 4 mg (/ Sodium Chloride) 254 mls @ 0 mls/hr IV TITR SHADI; Titrate PRN Reason: Protocol Stop: 09/03/17 16:29 Vancomycin HCl 1 gm/ Sodium (Chloride) 250 mls @ 165 mls/hr IV Q24H [facility] Stop: 09/07/17 09:59 Last Infusion: 07/09/17 11:42 Dose: Infused Lactobacillus Rhamnosus (Culturelle 15b) 1 each PO DAILY [facility] Stop: 09/01/17 08:59 Last Admin: 07/09/17 09:08 Dose: 1 each Lactulose (Cephulac) 20 gm PO QID PRN PRN Reason: Constipation Stop: 08/30/17 22:18 Last Admin: 07/08/17 10:11 Dose: 20 gm Lorazepam (Ativan) 1 mg IVP Q4HR PRN; Protocol PRN Reason: Anxiety Stop: 09/04/17 08:31 Last Admin: 07/08/17 21:57 Dose: 1 mg Miscellaneous (Probiotic Screen) 1 ea MC PRN PRN PRN Reason: PROTOCOL Stop: 09/01/17 08:44 Miscellaneous (Vancomycin Iv Per Pharmacy) 1 ea PRN PRN PRN Reason: PROTOCOL Stop: 09/03/17 11:06 Multivitamins/Vitamin C (Theragran) 1 tab PO DAILY [facility] Stop: 08/31/17 08:59 Last Admin: 07/09/17 09:09 Dose: 1 tab Nicotine (Nicotine Transdermal System) 14 mg TD DAILY [facility] Stop: 09/04/17 08:59 Last Admin: 07/09/17 09:10 Dose: 14 mg Pantoprazole Sodium (Protonix) 40 mg IVP DAILY [facility] Stop: 09/04/17 08:59 Last Admin: 07/09/17 09:09 Dose: 40 mg Rivaroxaban (Xarelto) 10 mg PO DAILY [facility] Stop: 09/03/17 08:59 Last Admin: 07/09/17 09:08 Dose: 10 mg General: Other (intubated, cachectic appearing, not resposive) HEENT: Atraumatic, Other (no dc) Neck: Supple, no JVD, no Thyromegaly Cardiovascular: Regular rate, Other (in A fib) Lungs: Other (Intubated, has bl rales) Abdomen: Bowel sounds, Soft, no Tender, no Hepatomegaly Extremities: Edema, no Clubbing Neurological: Other (Pt unable to participate in test) Skin: no Rash Psych/Mental Status: Other (no psychosis) - Procedures Procedures: Procedures Procedure Code Date INSERT EMERGENCY AIRWAY 05608 07/01/17 INSERTION OF ENDOTRACHEAL AIRWAY INTO [place]HEA, VIA OPENING [id number] 07/01/17 RESPIRATORY VENTILATION, LESS THAN 24 CONSECUTIVE HOURS [id number] 07/01/17 VENT MGMT INPAT INIT DAY [id number] 07/01/17 Assessment/Plan - Problem List Patient Problems: All Active Problems WEAKESS AND POOR ORAL INTAKE (Acute) - Assessment Assessment: Septic shock A fib with RVR Fail to thrive Stage 4 lung ca Sepsis due to E Coli UTI ME Ch pain syn Anemia of ch ill Hypernatremia Hypokalemia Type 2 [place] A fib - Plan Plan: Pt holds a poor progonosis. Been trying to communicate poor prognosis to the son. He wants "everything done. " Cardio, Pulm, and Heme Onc seeing pt, all of whom agree with comfort care/ hospice. On IV Zosyn and Vanco. Has been on Amiodarone and Levphed drip in ICU-now off as off 07/06/17. Intubated on 07/05/17. Elec corrected. I's and O's reviewed. Vent settings reviewed. Vent: AC mode, rate 12 PEEP 5 FiO2 30% TV 450 Pt holds a poor prognosis. Son still wants everything done. No drips. Pt responsive. Nutritional Asmnt/Malnutr-PDOC - Dietary Evaluation Malnutrition Findings (Please click <Entered> for more info): Nutritional Asmnt/Malnutrition Start: 07/03/17 13: 22 Text: Status: Complete Freq: Document 07/03/17 13:22 MMULHERN (Rec: 07/03/17 13:35 MMULJENN ELLER- [email or web address]) Nutritional Asmnt/Malnutrition Patient General Information Nutritional Screening Consult Diagnosis UTI, Failure to thrive, hypokalemia Pertinent Medical Hx/Surgical Hx CAD, HTN, COPD, Stage 4 lung cancer, peripheral neuropathy, constipation, GERD, anxiety, low back pain Subjective Information Consult received for Failure to Thrive. Current Diet Order/ Nutrition Support Regular diet, pureed with mechaical soft Patient / S.O Not Indicated Pertinent Medications Vitamin C, dulcolax, D5-0.45 NS @ 75 ml/hr, colace, iron, folate, lactulose, theragran Pertinent Labs (07/02) P 1.5, Mg 1.7, albumin 2.9 Nutritional Hx/Data Height 1.6 m Height (Calculated Centimeters) 160.0 Current Weight (lbs) 54.885 kg Weight (Calculated Kilograms) 54.9 Weight (Calculated Grams) 18401.7 [place] Body Weight 115 % [place] Body Weight 105 Body Mass Index (BMI) 21.4 Recent Weight Change No Weight Status Approriate GI Symptoms GI Symptoms None Last BM Prior to admission Difficult in: None Food Allergies No Cultural/Ethnic/Restorationist Belief None indicated Skin Integrity/Comment: Pradeep 15 Current %PO Poor (25-49%) Estimated Nutritional Goals BEE in Kcals: Using Current wt Calories/Kcals/Kg 55kg CBW (25-30kcal/kg) Kcals Calculated 6615-5292 kcal/day Protein: Using Current wt Protein g/k-1.2 gm/kg Protein Calculated 55-65 gm/day Fluid: ml 9833-1685 ml/day (1 ml/kcal) Nutritional Problem 2. Problem Problem Inadequate oral intake related to Etiology poor appetite aeb Signs/Symptoms: meeting <75% of estimated nutrient needs 1. Problem Problem Altered nutrition related lab values related to Etiology electrolyte imbalance aeb Signs/Symptoms: P 1.5, Mg 1.7 Intervention/Recommendation Comments 1. Continue pureed diet as tolerated by patient. 2. RN To assist with feedings and encourage oral intake. 3. Consider adding Boost plus between meals to optimize calorie and protein intake. Expected Outcomes/Goals Expected Outcomes/Goals Oral intake to meet >75% of needs, weight stable, nutrition labs WNL F/U MR 07/06-
[2017-07-10] MEDS: Cyproheptadine 4 mg Tab PO SCH ×2 (10:50→17:21)
[2017-07-10] MEDS: Ferrous Sulfate 325 MG TAB PO SCH ×2 (10:50→17:21)
[2017-07-10] MEDS: Lactobacillus Rhamnosus GG 15 Billion CFU CAP.SPRINK PO SCH (10:51)
[2017-07-10] MEDS: Nicotine 14 mg/24 hr Tdm TD SCH (10:51)
[2017-07-10] MEDS: Multivitamin Tab PO SCH (10:51)
--- NOTE | 2017-07-10 10:51 | Diagnostic Imaging Report ---
CHEST X-RAY: AP view INDICATION: NG tube placement COMPARISON: Chest x-ray earlier the same day FINDINGS: ET tube is noted with tip 4.5 cm above the izzy. NG tube is seen within the proximal stomach. COPD lung changes are seen with persistent prominent left perihilar density. Heart size is normal. IMPRESSION: NG tube with tip in the proximal stomach. Recommend 5 cm advancement for optimal positioning. COPD lung changes. Left perihilar density is noted. Underlying mass lesion cannot be excluded and further assessment with CT of the chest, preferably with IV contrast is recommended. These results and recommendations for CT of the chest with IV contrast were administered to the referring inpatient team on 07/10/2017 at 10:47 AM.
[2017-07-10] MEDS: Budesonide 0.5 Mg/2 mL Ud HHN SCH (19:01)
--- NOTE | 2017-07-10 20:03 | Infectious Disease Prog Note ---
Infectious Disease Subjective - Review of Systems Service Date: 07/10/17 Subjective: There is no new change. Patient remains intubated orally, on the ventilator support. Infectious Disease Objective - Results Result Diagrams: 07/10/17 04:15 07/10/17 04:15 Recent Labs: Laboratory Last Values WBC 20.3 Th/cmm (4.8-10.8) H* 07/10/17 04:15 RBC 2.93 Mil/cmm (3.80-5.20) L 07/10/17 04:15 Hgb 8.4 gm/dL (12-16) L 07/10/17 04:15 Hct 25.9 % (41.0-60) L 07/10/17 04:15 MCV 88.3 fl (81-100) 07/10/17 04:15 MCH 28.5 pg (27.0-31.0) 07/10/17 04:15 MCHC Differential 32.3 pg (28.0-36.0) 07/10/17 04:15 RDW 15.8 % (11.5-20.0) 07/10/17 04:15 Plt Count 215 Th/cmm (150-400) D 07/10/17 04:15 MPV 7.5 fl 07/10/17 04:15 Neutrophils % 90.2 % (40.0-80.0) H 07/07/17 05:35 Band Neutrophils % 3 % (0-10) 07/10/17 04:15 Lymphocytes % 3.8 % (20.0-50.0) L 07/07/17 05:35 Monocytes % 4.8 % (2.0-10.0) 07/07/17 05:35 Eosinophils % 1.0 % (0.0-5.0) 07/07/17 05:35 Basophils % 0.2 % (0.0-2.0) 07/07/17 05:35 Neutrophils (Manual) 86 % (40-80) H 07/10/17 04:15 Lymphocytes 5 % (20-50) L 07/10/17 04:15 Monocytes 3 % (2-10) 07/10/17 04:15 Eosinophils 3 % (0-5) 07/10/17 04:15 Basophils 0 % (0-3) 07/08/17 05:10 Specimen Source Arterial 07/08/17 11:40 Sample Site LB 07/08/17 11:40 pH 7.45 (7.35-7.45) 07/08/17 11:40 pCO2 30.0 mmHg (35.0-45.0) L 07/08/17 11:40 pO2 128.0 mmHg (80.0-100.0) H 07/08/17 11:40 HCO3 23.3 mEq/L (20.0-26.0) 07/08/17 11:40 Base Excess -2.2 mEq/L (-3.0-3.0) 07/08/17 11:40 O2 Saturation 99.0 % (92.0-100.0) 07/08/17 11:40 Darius Test NA 07/08/17 11:40 Vent Rate 14 07/08/17 11:40 Inspired O2 30 07/08/17 11:40 Tidal Volume 450 07/08/17 11:40 PEEP 5 07/08/17 11:40 Pressure (ins/psv/peep) NA 07/08/17 11:40 Critical Value E.GARCIA 07/08/17 11:40 Sodium 136 mEq/L (136-145) 07/10/17 04:15 Potassium 3.7 mEq/L (3.5-5.1) 07/10/17 04:15 Chloride 106 mEq/L (98-107) 07/10/17 04:15 Carbon Dioxide 22.9 mEq/L (21.0-31.0) 07/10/17 04:15 Anion Gap 10.8 (7.0-16.0) 07/10/17 04:15 BUN 18 mg/dL (7-25) 07/10/17 04:15 Creatinine 0.7 mg/dL (0.6-1.2) 07/10/17 04:15 Est GFR ( Amer) TNP 07/10/17 04:15 Est GFR (Non-Af Amer) TNP 07/10/17 04:15 BUN/Creatinine Ratio 25.7 07/10/17 04:15 Glucose 127 mg/dL (70-105) H 07/10/17 04:15 Whole Bld Lactic Acid 3.99 mmol/L (0.60-1.99) H* 07/05/17 13:00 Calcium 7.9 mg/dL (8.6-10.3) L 07/10/17 04:15 Phosphorus 1.5 mg/dL (2.5-5.0) L 07/02/17 05:20 Magnesium 1.7 mg/dL (1.9-2.7) L 07/02/17 05:20 Iron 21 07/03/17 05:48 TIBC 131 07/03/17 05:48 Iron Saturation 16 07/03/17 05:48 Unsaturated IBC 110 07/03/17 05:48 Ferritin 334 ng/mL (15-150) H 07/03/17 05:48 Total Bilirubin 0.5 mg/dL (0.3-1.0) 07/05/17 06:05 AST 16 U/L (13-39) 07/05/17 06:05 ALT 8 U/L (7-52) 07/05/17 06:05 Alkaline Phosphatase 66 U/L (34-104) 07/05/17 06:05 Troponin I 0.09 ng/mL (0.01-0.05) H* D 07/04/17 05:50 B-Natriuretic Peptide 215.0 pg/mL (5.0-100.0) H 07/01/17 14:10 Total Protein 5.6 gm/dL (6.0-8.3) L 07/05/17 06:05 Albumin 2.6 gm/dL (3.7-5.3) L 07/05/17 06:05 Globulin 3.0 gm/dL 07/05/17 06:05 Albumin/Globulin Ratio 0.9 (1.0-1.8) L 07/05/17 06:05 Triglycerides 107 mg/dL (<150) 07/04/17 05:50 Cholesterol 114 mg/dL (<200) 07/04/17 05:50 LDL Cholesterol Direct 59 mg/dL (75-193) L 07/04/17 05:50 HDL Cholesterol 31 mg/dL (23-92) 07/04/17 05:50 TSH 1.46 uIU/ml (0.34-5.60) 07/04/17 05:50 Urine Source CATH 07/05/17 18:30 Urine Color YELLOW 07/05/17 18:30 Urine Clarity CLOUDY (CLEAR) H 07/05/17 18:30 Urine pH 5.5 (4.6 - 8.0) 07/05/17 18:30 Ur Specific [place] 1.025 (1.005-1.030) 07/05/17 18:30 Urine Protein 30 mg/dL (NEGATIVE) H 07/05/17 18:30 Urine Glucose (UA) NEGATIVE mg/dL (NEGATIVE) 07/05/17 18:30 Urine Ketones TRACE mg/dL (NEGATIVE) 07/05/17 18:30 Urine Blood SMALL (NEGATIVE) H 07/05/17 18:30 Urine Nitrate NEGATIVE (NEGATIVE) 07/05/17 18:30 Urine Bilirubin NEGATIVE (NEGATIVE) 07/05/17 18:30 Urine Urobilinogen 0.2 E.U./dL (0.2 - 1.0) 07/05/17 18:30 Ur Leukocyte Esterase LARGE (NEGATIVE) H 07/05/17 18:30 Urine RBC 2-5 /hpf (0-5) 07/05/17 18:30 Urine WBC >100 /hpf (0-5) H 07/05/17 18:30 Ur Epithelial Cells FEW /lpf (FEW) 07/05/17 18:30 Urine Bacteria FEW /hpf (NONE SEEN) 07/05/17 18:30 Urine Yeast FEW /hpf (NONE SEEN) H 07/05/17 18:30 Vancomycin Trough 11.2 ug/mL (5-10) H 07/09/17 09:24 - Physical Exam Vitals and I&O: Vital Signs Temp 99.2 F 07/10/17 16:00 Pulse 103 07/10/17 19:12 Resp 15 07/10/17 19:00 BP 95/51 07/10/17 19:00 Pulse Ox 99 07/10/17 19:12 Intake & Output 07/10/17 07/10/17 07/11/17 06:59 18:59 06:59 Intake Total 1000 1190 Output Total 1200 Balance 1000 -10 Weight (lbs) 55.792 kg Intake: Intake, IV Amount 1000 890 D5-0.45NS 1,000 ml @ 75 1000 640 mls/hr IV .[id number] [facility] Rx #:[id number] Vancomycin HCl 1 gm In 250 Sodium Chloride 0.9% 250 ml @ 165 mls/hr IV Q24H [facility] Rx#:[id number] Tube Feeding 300 Output: Urine 1200 Other: # Bowel Movements 1 Stool Characteristics Formed Brown Weight Source Bedscale Active Medications: Current Medications Acetaminophen (Tylenol) 650 mg PO Q4H PRN PRN Reason: Fever > 101 Stop: 08/30/17 22:06 Last Admin: 07/09/17 16:35 Dose: 650 mg Albuterol/Ipratropium (Duoneb Neb) 3 ml HHN Q4HRT PRN PRN Reason: Wheezing Stop: 08/30/17 22:13 Albuterol/Ipratropium (Duoneb Neb) 3 ml HHN Q6HRT [facility] Stop: 08/31/17 00:59 Last Admin: 07/10/17 19:02 Dose: 3 ml Ascorbic Acid (Vitamin C) 500 mg PO DAILY [facility] Stop: 08/31/17 08:59 Last Admin: 07/10/17 10:49 Dose: 500 mg Baclofen (Lioresal) 5 mg PO TID [facility] Stop: 09/06/17 08:59 Last Admin: 07/10/17 14:43 Dose: 5 mg Bisacodyl (Dulcolax 10 Mg Supp) 10 mg RC HS PRN PRN Reason: BOWEL CARE MANAGEMENT Stop: 08/30/17 22:18 Budesonide (Pulmicort) 0.5 mg HHN BIDRT [facility] Stop: 08/31/17 18:59 Last Admin: 07/10/17 19:01 Dose: 0.5 mg Chlorhexidine Gluconate (Peridex) 15 ml MM 0800,2000 [facility] Stop: 09/03/17 19:59 Last Admin: 07/10/17 08:06 Dose: 15 ml Cyproheptadine HCl (Periactin) 4 mg PO BID [facility] Stop: 08/31/17 08:59 Last Admin: 07/10/17 17:21 Dose: 4 mg Docusate Sodium (Colace) 100 mg PO BID [facility] Stop: 08/31/17 08:59 Last Admin: 07/10/17 17:21 Dose: 100 mg Ferrous Sulfate (Iron) 325 mg PO BID [facility] Stop: 08/31/17 08:59 Last Admin: 07/10/17 17:21 Dose: 325 mg Folic Acid (Folate) 1 mg PO DAILY [facility] Stop: 08/31/17 08:59 Last Admin: 07/10/17 10:51 Dose: 1 mg Dextrose/Sodium Chloride (D5-0.45ns) 1,000 mls @ 75 mls/hr IV .[id number] [facility] Stop: 09/01/17 11:59 Last Admin: 07/10/17 10:32 Dose: 75 mls/hr Amiodarone HCl 450 mg/ Sodium (Chloride) 259 mls @ 0 mls/hr IV TITR [facility]; Titrate PRN Reason: Protocol Stop: 09/03/17 16:29 Last Titration: 07/06/17 08:00 Dose: 0 mg/min, 0 mls/hr Norepinephrine Bitartrate 4 mg (/ Sodium Chloride) 254 mls @ 0 mls/hr IV TITR [facility]; Titrate PRN Reason: Protocol Stop: 09/03/17 16:29 Vancomycin HCl 1 gm/ Sodium (Chloride) 250 mls @ 165 mls/hr IV Q24H [facility] Stop: 09/07/17 09:59 Last Infusion: 07/10/17 12:05 Dose: Infused Lactobacillus Rhamnosus (Culturelle 15b) 1 each PO DAILY [facility] Stop: 09/01/17 08:59 Last Admin: 07/10/17 10:51 Dose: 1 each Lactulose (Cephulac) 20 gm PO QID PRN PRN Reason: Constipation Stop: 08/30/17 22:18 Last Admin: 07/08/17 10:11 Dose: 20 gm Lorazepam (Ativan) 1 mg IVP Q4HR PRN; Protocol PRN Reason: Anxiety Stop: 09/04/17 08:31 Last Admin: 07/08/17 21:57 Dose: 1 mg Miscellaneous (Probiotic Screen) 1 ea PRN PRN PRN Reason: PROTOCOL Stop: 09/01/17 08:44 Miscellaneous (Vancomycin Iv Per Pharmacy) 1 ea PRN PRN PRN Reason: PROTOCOL Stop: 09/03/17 11:06 Multivitamins/Vitamin C (Theragran) 1 tab PO DAILY [facility] Stop: 08/31/17 08:59 Last Admin: 07/10/17 10:51 Dose: 1 tab Nicotine (Nicotine Transdermal System) 14 mg TD DAILY [facility] Stop: 09/04/17 08:59 Last Admin: 07/10/17 10:51 Dose: 14 mg Pantoprazole Sodium (Protonix) 40 mg IVP DAILY [facility] Stop: 09/04/17 08:59 Last Admin: 07/10/17 10:53 Dose: 40 mg Rivaroxaban (Xarelto) 10 mg PO DAILY [facility] Stop: 09/03/17 08:59 Last Admin: 07/10/17 10:52 Dose: 10 mg General: no acute distress, cachectic HEENT: atraumatic, normocephalic, PERRLA, EOMI Neck: supple, no thyromegaly Cardiovascular: S1S2, regular Lungs: clear to percussion, rhonchi Abdomen: soft, no tender, no distended, no mass Extremities: no cyanosis, no clubbing, no edema Skin: intact - Procedures Procedures: Procedures Procedure Code Date INSERT EMERGENCY AIRWAY 59021 07/01/17 INSERTION OF ENDOTRACHEAL AIRWAY INTO [facility], VIA OPENING [id number] 07/01/17 RESPIRATORY VENTILATION, LESS THAN 24 CONSECUTIVE HOURS [id number] 07/01/17 VENT MGMT INPAT INIT DAY 05436 07/01/17 Infectious Disease Assmt/Plan - Problem List Patient Problems: All Active Problems WEAKESS AND POOR ORAL INTAKE (Acute) - Assessment Assessment: 1. Leukocytosis. Fever, sepsis. 2. Pneumonia. 3. Stage IV lung CA. 4. Protein calorie malnutrion, 5. VDRF. 6. ALTERED MENTAL STATUS. - Plan Plan: Continue Zosyn, and vancomycin IV. Nutritional Asmnt/Malnutr-PDOC - Dietary Evaluation Malnutrition Findings (Please click <Entered> for more info): Nutritional Asmnt/Malnutrition Start: 07/03/17 13: 22 Text: Status: Complete Freq: Document 07/03/17 13:22 MMULHERN (Rec: 07/03/17 13:35 MMULHERN RAFITA- FN) Nutritional Asmnt/Malnutrition Patient General Information Nutritional Screening Consult Diagnosis UTI, Failure to thrive, hypokalemia Pertinent Medical Hx/Surgical Hx CAD, HTN, COPD, Stage 4 lung cancer, peripheral neuropathy, constipation, GERD, anxiety, low back pain Subjective Information Consult received for Failure to Thrive. Current Diet Order/ Nutrition Support Regular diet, pureed with mechaical soft Patient / S.O Not Indicated Pertinent Medications Vitamin C, dulcolax, D5-0.45 NS @ 75 ml/hr, colace, iron, folate, lactulose, theragran Pertinent Labs (07/02) P 1.5, Mg 1.7, albumin 2.9 Nutritional Hx/Data Height 1.6 m Height (Calculated Centimeters) 160.0 Current Weight (lbs) 54.885 kg Weight (Calculated Kilograms) 54.9 Weight (Calculated Grams) 73176.7 [place] Body Weight 115 % [place] Body Weight 105 Body Mass Index (BMI) 21.4 Recent Weight Change No Weight Status Approriate GI Symptoms GI Symptoms None Last BM Prior to admission Difficult in: None Food Allergies No Cultural/Ethnic/Taoist Belief None indicated Skin Integrity/Comment: Pradeep 15 Current %PO Poor (25-49%) Estimated Nutritional Goals BEE in Kcals: Using Current wt Calories/Kcals/Kg 55kg CBW (25-30kcal/kg) Kcals Calculated 0803-0038 kcal/day Protein: Using Current wt Protein g/k-1.2 gm/kg Protein Calculated 55-65 gm/day Fluid: ml 4426-1258 ml/day (1 ml/kcal) Nutritional Problem 2. Problem Problem Inadequate oral intake related to Etiology poor appetite aeb Signs/Symptoms: meeting <75% of estimated nutrient needs 1. Problem Problem Altered nutrition related lab values related to Etiology electrolyte imbalance aeb Signs/Symptoms: P 1.5, Mg 1.7 Intervention/Recommendation Comments 1. Continue pureed diet as tolerated by patient. 2. RN To assist with feedings and encourage oral intake. 3. Consider adding Boost plus between meals to optimize calorie and protein intake. Expected Outcomes/Goals Expected Outcomes/Goals Oral intake to meet >75% of needs, weight stable, nutrition labs WNL F/U MR 07/06-
[2017-07-11] MEDS: Albuterol/Ipratropium Neb 3 ML AERS HHN SCH ×4 (00:49→18:55)
[2017-07-11] MEDS: D5-0.45NS 1,000 ML IV SCH ×3 (01:27→21:21)
[2017-07-11 05:08] LABS: EOSINOPHILE ABSOLUTE 0.3 Th/cmm (0.1-0.4)
[2017-07-11 05:21] LABS: BASOPHILE ABSOLUTE 0.1 Th/cumm (0-0.2); HEMATOCRIT 21.5 % (41.0-60); MEAN CELL VOLUME 86.6 fl (81-100); MEAN CORPUSCULAR HEMOGLOBIN 30.2 pg (27.0-31.0); MEAN CORPUSCULAR HGB CONC 34.9 pg (28.0-36.0); MEAN PLATELET VOLUME 7.7 fl; MONOCYTE ABSOLUTE 0.8 Th/cmm (0.3-1.0); NEUTROPHILE ABSOLUTE 16.2 Th/cmm (1.8-8.0); RED BLOOD COUNT 2.49 Mil/cmm (3.80-5.20); RED CELL DISTRIBUTION WIDTH 15.8 % (11.5-20.0)
[2017-07-11 05:28] LABS: ANION GAP 10.9 (7.0-16.0); BUN - UREA NITROGEN 23 mg/dL (7-25); CALCIUM SERUM 7.8 mg/dL (8.6-10.3); CARBON DIOXIDE 20.8 mEq/L (21.0-31.0); CHLORIDE 106 mEq/L (98-107); GLUCOSE 160 mg/dL (70-105); POTASSIUM SERUM 3.7 mEq/L (3.5-5.1); SODIUM SERUM 134 mEq/L (136-145)
[2017-07-11 05:53] LABS: HEMOGLOBIN 7.5 gm/dL (12-16); PLATELET COUNT 434 Th/cmm (150-400); WHITE BLOOD COUNT 18.4 Th/cmm (4.8-10.8)
[2017-07-11 06:09] LABS: BAND NEUTROPHILE 5 % (0-10); BASOPHIL 0 % (0-3); EOSINOPHIL 0 % (0-5); LYMPHOCYTE 6 % (20-50); MONOCYTE 5 % (2-10); NEUTROPHILS 84 % (40-80); TOTAL CELLS COUNTED 100
[2017-07-11 06:10] LABS: PLATELET ESTIMATE ADEQUATE (NORMAL); PLATELET MORPHOLOGY NORMAL (NORMAL)
[2017-07-11] MEDS: Budesonide 0.5 Mg/2 mL Ud HHN SCH ×2 (07:02→18:55)
[2017-07-11] MEDS: Ferrous Sulfate 325 MG TAB PO SCH ×2 (08:37→16:42)
[2017-07-11] MEDS: Multivitamin Tab PO SCH (08:37)
[2017-07-11] MEDS: Lactobacillus Rhamnosus GG 15 Billion CFU CAP.SPRINK PO SCH (08:38)
[2017-07-11] MEDS: Nicotine 14 mg/24 hr Tdm TD SCH (08:39)
[2017-07-11] MEDS: Cyproheptadine 4 mg Tab PO SCH ×2 (08:39→16:42)
[2017-07-11] MEDS: Chlorhexidine Gluconate 0.12% 15mL Mouthwash MM SCH ×2 (08:40→21:19)
--- NOTE | 2017-07-11 09:17 | General Progress Note ---
Subjective - Review of Systems Service Date: 07/11/17 Subjective: Pt seen and eval. In bed. Prior to being intubated, she could not hold up her head or feed herself. Incontinent. Seen by jayson, bren, and heme onc, all of whom agree with hospice care. Dr. Montanez discussed poor prog with son. No fevers or chills. WBC elevated. No falls. Pt went into A fib pm 07/04/16, and was transferred to ICU on digoxin. Intubated as of 07/05/17. Was on Amiodarone and Levophed drip, both of which are off as of 07/06/17. Pt is no longer awake. She's unresponsive. She had large bm night of 07/10/17. Objective - Results Result Diagrams: 07/11/17 04:15 07/11/17 04:15 Recent Labs: Laboratory Last Values WBC 18.4 Th/cmm (4.8-10.8) H 07/11/17 04:15 RBC 2.49 Mil/cmm (3.80-5.20) L 07/11/17 04:15 Hgb 7.5 gm/dL (12-16) L* 07/11/17 04:15 Hct 21.5 % (41.0-60) L 07/11/17 04:15 MCV 86.6 fl (81-100) 07/11/17 04:15 MCH 30.2 pg (27.0-31.0) 07/11/17 04:15 MCHC Differential 34.9 pg (28.0-36.0) 07/11/17 04:15 RDW 15.8 % (11.5-20.0) 07/11/17 04:15 Plt Count 434 Th/cmm (150-400) H D 07/11/17 04:15 MPV 7.7 fl 07/11/17 04:15 Neutrophils % [employer]AMM[employer] KEEPER 07/11/17 04:15 Band Neutrophils % 5 % (0-10) 07/11/17 04:15 Lymphocytes % [employer]AMMAL KEEPER 07/11/17 04:15 Monocytes % MAMMAL KEEPER 07/11/17 04:15 Eosinophils % MAMMAL KEEPER 07/11/17 04:15 Basophils % MAMMAL KEEPER 07/11/17 04:15 Neutrophils (Manual) 84 % (40-80) H 07/11/17 04:15 Lymphocytes 6 % (20-50) L 07/11/17 04:15 Monocytes 5 % (2-10) 07/11/17 04:15 Eosinophils 0 % (0-5) 07/11/17 04:15 Basophils 0 % (0-3) 07/11/17 04:15 Platelet Estimate ADEQUATE (NORMAL) 07/11/17 04:15 Platelet Morphology NORMAL (NORMAL) 07/11/17 04:15 RBC Morph Micro Appear NORMAL (NORMAL) 07/11/17 04:15 Specimen Source Arterial 07/08/17 11:40 Sample Site LB 07/08/17 11:40 pH 7.45 (7.35-7.45) 07/08/17 11:40 pCO2 30.0 mmHg (35.0-45.0) L 07/08/17 11:40 pO2 128.0 mmHg (80.0-100.0) H 07/08/17 11:40 HCO3 23.3 mEq/L (20.0-26.0) 07/08/17 11:40 Base Excess -2.2 mEq/L (-3.0-3.0) 07/08/17 11:40 O2 Saturation 99.0 % (92.0-100.0) 07/08/17 11:40 Darius Test NA 07/08/17 11:40 Vent Rate 14 07/08/17 11:40 Inspired O2 30 07/08/17 11:40 Tidal Volume 450 07/08/17 11:40 PEEP 5 07/08/17 11:40 Pressure (ins/psv/peep) NA 07/08/17 11:40 Critical Value E.GARCIA 07/08/17 11:40 Sodium 134 mEq/L (136-145) L 07/11/17 04:15 Potassium 3.7 mEq/L (3.5-5.1) 07/11/17 04:15 Chloride 106 mEq/L (98-107) 07/11/17 04:15 Carbon Dioxide 20.8 mEq/L (21.0-31.0) L 07/11/17 04:15 Anion Gap 10.9 (7.0-16.0) 07/11/17 04:15 BUN 23 mg/dL (7-25) 07/11/17 04:15 Creatinine 1.0 mg/dL (0.6-1.2) 07/11/17 04:15 Est GFR ( Amer) TNP 07/11/17 04:15 Est GFR (Non-Af Amer) TNP 07/11/17 04:15 BUN/Creatinine Ratio 23.0 07/11/17 04:15 Glucose 160 mg/dL (70-105) H 07/11/17 04:15 Whole Bld Lactic Acid 3.99 mmol/L (0.60-1.99) H* 07/05/17 13:00 Calcium 7.8 mg/dL (8.6-10.3) L 07/11/17 04:15 Phosphorus 1.5 mg/dL (2.5-5.0) L 07/02/17 05:20 Magnesium 1.7 mg/dL (1.9-2.7) L 07/02/17 05:20 Iron 21 07/03/17 05:48 TIBC 131 07/03/17 05:48 Iron Saturation 16 07/03/17 05:48 Unsaturated IBC 110 07/03/17 05:48 Ferritin 334 ng/mL (15-150) H 07/03/17 05:48 Total Bilirubin 0.5 mg/dL (0.3-1.0) 07/05/17 06:05 AST 16 U/L (13-39) 07/05/17 06:05 ALT 8 U/L (7-52) 07/05/17 06:05 Alkaline Phosphatase 66 U/L (34-104) 07/05/17 06:05 Troponin I 0.09 ng/mL (0.01-0.05) H* D 07/04/17 05:50 B-Natriuretic Peptide 215.0 pg/mL (5.0-100.0) H 07/01/17 14:10 Total Protein 5.6 gm/dL (6.0-8.3) L 07/05/17 06:05 Albumin 2.6 gm/dL (3.7-5.3) L 07/05/17 06:05 Globulin 3.0 gm/dL 07/05/17 06:05 Albumin/Globulin Ratio 0.9 (1.0-1.8) L 07/05/17 06:05 Triglycerides 107 mg/dL (<150) 07/04/17 05:50 Cholesterol 114 mg/dL (<200) 07/04/17 05:50 LDL Cholesterol Direct 59 mg/dL (75-193) L 07/04/17 05:50 HDL Cholesterol 31 mg/dL (23-92) 07/04/17 05:50 TSH 1.46 uIU/ml (0.34-5.60) 07/04/17 05:50 Urine Source CATH 07/05/17 18:30 Urine Color YELLOW 07/05/17 18:30 Urine Clarity CLOUDY (CLEAR) H 07/05/17 18:30 Urine pH 5.5 (4.6 - 8.0) 07/05/17 18:30 Ur Specific [place] 1.025 (1.005-1.030) 07/05/17 18:30 Urine Protein 30 mg/dL (NEGATIVE) H 07/05/17 18:30 Urine Glucose (UA) NEGATIVE mg/dL (NEGATIVE) 07/05/17 18:30 Urine Ketones TRACE mg/dL (NEGATIVE) 07/05/17 18:30 Urine Blood SMALL (NEGATIVE) H 07/05/17 18:30 Urine Nitrate NEGATIVE (NEGATIVE) 07/05/17 18:30 Urine Bilirubin NEGATIVE (NEGATIVE) 07/05/17 18:30 Urine Urobilinogen 0.2 E.U./dL (0.2 - 1.0) 07/05/17 18:30 Ur Leukocyte Esterase LARGE (NEGATIVE) H 07/05/17 18:30 Urine RBC 2-5 /hpf (0-5) 07/05/17 18:30 Urine WBC >100 /hpf (0-5) H 07/05/17 18:30 Ur Epithelial Cells FEW /lpf (FEW) 07/05/17 18:30 Urine Bacteria FEW /hpf (NONE SEEN) 07/05/17 18:30 Urine Yeast FEW /hpf (NONE SEEN) H 07/05/17 18:30 Vancomycin Trough 11.2 ug/mL (5-10) H 07/09/17 09:24 - Physical Exam Vitals and I&O: Vital Signs Temp 98 F 07/11/17 04:00 Pulse 97 07/11/17 08:59 Resp 20 07/11/17 06:00 BP 122/36 07/11/17 06:00 Pulse Ox 100 07/11/17 08:59 Intake & Output 04/07/11/17 07/11/17 18:59 06:59 18:59 Intake Total 1190 1800 Output Total 1200 400 Balance -10 1400 Weight (lbs) 55.792 kg 55.792 kg Intake: Intake, IV Amount 890 1000 D5-0.45NS 1,000 ml @ 75 640 1000 mls/hr IV .[id number] [facility] Rx #:[id number] Vancomycin HCl 1 gm In 250 Sodium Chloride 0.9% 250 ml @ 165 mls/hr IV Q24H [facility] Rx#:[id number] Tube Feeding 300 600 Other 200 Output: Urine 1200 400 Other: # Bowel Movements 1 4 Stool Characteristics Soft Formed Brown Weight Source Bedscale Bedscale Active Medications: Current Medications Acetaminophen (Tylenol) 650 mg PO Q4H PRN PRN Reason: Fever > 101 Stop: 08/30/17 22:06 Last Admin: 07/09/17 16:35 Dose: 650 mg Albuterol/Ipratropium (Duoneb Neb) 3 ml HHN Q4HRT PRN PRN Reason: Wheezing Stop: 08/30/17 22:13 Albuterol/Ipratropium (Duoneb Neb) 3 ml HHN Q6HRT [facility] Stop: 08/31/17 00:59 Last Admin: 07/11/17 07:02 Dose: 3 ml Ascorbic Acid (Vitamin C) 500 mg PO DAILY [facility] Stop: 08/31/17 08:59 Last Admin: 07/11/17 08:38 Dose: 500 mg Baclofen (Lioresal) 5 mg PO TID [facility] Stop: 09/06/17 08:59 Last Admin: 07/11/17 08:38 Dose: 5 mg Bisacodyl (Dulcolax 10 Mg Supp) 10 mg RC HS PRN PRN Reason: BOWEL CARE MANAGEMENT Stop: 08/30/17 22:18 Budesonide (Pulmicort) 0.5 mg HHN BIDRT [facility] Stop: 08/31/17 18:59 Last Admin: 07/11/17 07:02 Dose: 0.5 mg Chlorhexidine Gluconate (Peridex) 15 ml MM 0800,2000 [facility] Stop: 09/03/17 19:59 Last Admin: 07/11/17 08:40 Dose: 15 ml Cyproheptadine HCl (Periactin) 4 mg PO BID [facility] Stop: 08/31/17 08:59 Last Admin: 07/11/17 08:39 Dose: 4 mg Docusate Sodium (Colace) 100 mg PO BID [facility] Stop: 08/31/17 08:59 Last Admin: 07/11/17 08:38 Dose: 100 mg Ferrous Sulfate (Iron) 325 mg PO BID [facility] Stop: 08/31/17 08:59 Last Admin: 07/11/17 08:37 Dose: 325 mg Folic Acid (Folate) 1 mg PO DAILY [facility] Stop: 08/31/17 08:59 Last Admin: 07/11/17 08:38 Dose: 1 mg Dextrose/Sodium Chloride (D5-0.45ns) 1,000 mls @ 75 mls/hr IV .[id number] [facility] Stop: 09/01/17 11:59 Last Admin: 07/11/17 01:27 Dose: 75 mls/hr Amiodarone HCl 450 mg/ Sodium (Chloride) 259 mls @ 0 mls/hr IV TITR [facility]; Titrate PRN Reason: Protocol Stop: 09/03/17 16:29 Last Titration: 07/06/17 08:00 Dose: 0 mg/min, 0 mls/hr Norepinephrine Bitartrate 4 mg (/ Sodium Chloride) 254 mls @ 0 mls/hr IV TITR [facility]; Titrate PRN Reason: Protocol Stop: 09/03/17 16:29 Vancomycin HCl 1 gm/ Sodium (Chloride) 250 mls @ 165 mls/hr IV Q24H [facility] Stop: 09/07/17 09:59 Last Infusion: 07/10/17 12:05 Dose: Infused Lactobacillus Rhamnosus (Culturelle 15b) 1 each PO DAILY [facility] Stop: 09/01/17 08:59 Last Admin: 07/11/17 08:38 Dose: 1 each Lactulose (Cephulac) 20 gm PO QID PRN PRN Reason: Constipation Stop: 08/30/17 22:18 Last Admin: 07/08/17 10:11 Dose: 20 gm Lorazepam (Ativan) 1 mg IVP Q4HR PRN; Protocol PRN Reason: Anxiety Stop: 09/04/17 08:31 Last Admin: 07/08/17 21:57 Dose: 1 mg Miscellaneous (Probiotic Screen) 1 ea MC PRN PRN PRN Reason: PROTOCOL Stop: 09/01/17 08:44 Miscellaneous (Vancomycin Iv Per Pharmacy) 1 ea PEG PRN PRN PRN Reason: PROTOCOL Stop: 09/03/17 11:06 Multivitamins/Vitamin C (Theragran) 1 tab PO DAILY [facility] Stop: 08/31/17 08:59 Last Admin: 07/11/17 08:37 Dose: 1 tab Nicotine (Nicotine Transdermal System) 14 mg TD DAILY [facility] Stop: 09/04/17 08:59 Last Admin: 07/11/17 08:39 Dose: 14 mg Pantoprazole Sodium (Protonix) 40 mg IVP DAILY [facility] Stop: 09/04/17 08:59 Last Admin: 07/11/17 08:37 Dose: 40 mg General: Other (intubated, cachectic appearing, not resposive) HEENT: Atraumatic, Other (no dc) Neck: Supple, no JVD, no Thyromegaly Cardiovascular: Regular rate, Other (in A fib) Lungs: Other (Intubated, has bl rales) Abdomen: Bowel sounds, Soft, no Tender, no Hepatomegaly Extremities: Edema, no Clubbing Neurological: Other (Pt unable to participate in test) Skin: no Rash Psych/Mental Status: Other (no psychosis) - Procedures Procedures: Procedures Procedure Code Date INSERT EMERGENCY AIRWAY 24688 07/01/17 INSERTION OF ENDOTRACHEAL AIRWAY INTO TRACHEA, VIA OPENING [id number] 07/01/17 RESPIRATORY VENTILATION, LESS THAN 24 CONSECUTIVE HOURS [id number] 07/01/17 VENT MGMT INPAT INIT DAY 97996 07/01/17 Assessment/Plan - Problem List Patient Problems: All Active Problems WEAKESS AND POOR ORAL INTAKE (Acute) - Assessment Assessment: Septic shock A fib with RVR Fail to thrive Stage 4 lung ca Sepsis due to E Coli UTI ME Ch pain syn Anemia of ch ill Hypernatremia Hypokalemia Type 2 KS A fib - Plan Plan: Pt holds a poor progonosis. Been trying to communicate poor prognosis to the son. He wants "everything done. " Cardio, Pulm, and Heme Onc seeing pt, all of whom agree with comfort care/ hospice. On IV Zosyn and Vanco. Has been on Amiodarone and Levphed drip in ICU-now off as off 07/06/17. Intubated on 07/05/17. Elec corrected. I's and O's reviewed. Vent settings reviewed. Vent: AC mode, rate 12 PEEP 5 FiO2 30% TV 450 Pt holds a poor prognosis. Son still wants everything done. No drips. Pt responsive. Weaning tried on 07/10/17, but could not tolerate it. Hgb dropping. Holding Xarelto as of 07/11/17. Check stool OB times 2. FU on CBC and Chem 7. Again, advised son of the grave prognosis and the fact that pt has poor quality of life and it will not improve. He still wants "everything done." Nutritional Asmnt/Malnutr-PDOC - Dietary Evaluation Malnutrition Findings (Please click <Entered> for more info): Nutritional Asmnt/Malnutrition Start: 07/03/17 13: 22 Text: Status: Complete Freq: Document 07/03/17 13:22 MMULJENN (Rec: 07/03/17 13:35 [email or web address] ELLER- [email or web address]) Nutritional Asmnt/Malnutrition Patient General Information Nutritional Screening Consult Diagnosis UTI, Failure to thrive, hypokalemia Pertinent Medical Hx/Surgical Hx CAD, HTN, COPD, Stage 4 lung cancer, peripheral neuropathy, constipation, GERD, anxiety, low back pain Subjective Information Consult received for Failure to Thrive. Current Diet Order/ Nutrition Support Regular diet, pureed with mechaical soft Patient / S.O Not Indicated Pertinent Medications Vitamin C, dulcolax, D5-0.45 NS @ 75 ml/hr, colace, iron, folate, lactulose, theragran Pertinent Labs (07/02) P 1.5, Mg 1.7, albumin 2.9 Nutritional Hx/Data Height 1.6 m Height (Calculated Centimeters) 160.0 Current Weight (lbs) 54.885 kg Weight (Calculated Kilograms) 54.9 Weight (Calculated Grams) 14958.7 Marcell Body Weight 115 % Marcell Body Weight 105 Body Mass Index (BMI) 21.4 Recent Weight Change No Weight Status Approriate GI Symptoms GI Symptoms None Last BM Prior to admission Difficult in: None Food Allergies No Cultural/Ethnic/Bahai Belief None indicated Skin Integrity/Comment: Pradeep 15 Current %PO Poor (25-49%) Estimated Nutritional Goals BEE in Kcals: Using Current wt Calories/Kcals/Kg 55kg CBW (25-30kcal/kg) Kcals Calculated 9850-2698 kcal/day Protein: Using Current wt Protein g/k-1.2 gm/kg Protein Calculated 55-65 gm/day Fluid: ml 7189-5958 ml/day (1 ml/kcal) Nutritional Problem 2. Problem Problem Inadequate oral intake related to Etiology poor appetite aeb Signs/Symptoms: meeting <75% of estimated nutrient needs 1. Problem Problem Altered nutrition related lab values related to Etiology electrolyte imbalance aeb Signs/Symptoms: P 1.5, Mg 1.7 Intervention/Recommendation Comments 1. Continue pureed diet as tolerated by patient. 2. RN To assist with feedings and encourage oral intake. 3. Consider adding Boost plus between meals to optimize calorie and protein intake. Expected Outcomes/Goals Expected Outcomes/Goals Oral intake to meet >75% of needs, weight stable, nutrition labs WNL F/U MR 07/06-
--- NOTE | 2017-07-11 10:03 | General Progress Note ---
Subjective - Review of Systems Service Date: 07/11/17 Subjective: unresponsive, opens eyes Objective - Results Result Diagrams: 07/11/17 04:15 07/11/17 04:15 Recent Labs: Laboratory Last Values WBC 18.4 Th/cmm (4.8-10.8) H 07/11/17 04:15 RBC 2.49 Mil/cmm (3.80-5.20) L 07/11/17 04:15 Hgb 7.5 gm/dL (12-16) L* 07/11/17 04:15 Hct 21.5 % (41.0-60) L 07/11/17 04:15 MCV 86.6 fl (81-100) 07/11/17 04:15 MCH 30.2 pg (27.0-31.0) 07/11/17 04:15 MCHC Differential 34.9 pg (28.0-36.0) 07/11/17 04:15 RDW 15.8 % (11.5-20.0) 07/11/17 04:15 Plt Count 434 Th/cmm (150-400) H D 07/11/17 04:15 MPV 7.7 fl 07/11/17 04:15 Neutrophils % CHAIRMAN CEO 07/11/17 04:15 Band Neutrophils % 5 % (0-10) 07/11/17 04:15 Lymphocytes % CHAIRMAN CEO 07/11/17 04:15 Monocytes % CHAIRMAN CEO 07/11/17 04:15 Eosinophils % CHAIRMAN CEO 07/11/17 04:15 Basophils % CHAIRMAN CEO 07/11/17 04:15 Neutrophils (Manual) 84 % (40-80) H 07/11/17 04:15 Lymphocytes 6 % (20-50) L 07/11/17 04:15 Monocytes 5 % (2-10) 07/11/17 04:15 Eosinophils 0 % (0-5) 07/11/17 04:15 Basophils 0 % (0-3) 07/11/17 04:15 Platelet Estimate ADEQUATE (NORMAL) 07/11/17 04:15 Platelet Morphology NORMAL (NORMAL) 07/11/17 04:15 RBC Morph Micro Appear NORMAL (NORMAL) 07/11/17 04:15 Specimen Source Arterial 07/08/17 11:40 Sample Site LB 07/08/17 11:40 pH 7.45 (7.35-7.45) 07/08/17 11:40 pCO2 30.0 mmHg (35.0-45.0) L 07/08/17 11:40 pO2 128.0 mmHg (80.0-100.0) H 07/08/17 11:40 HCO3 23.3 mEq/L (20.0-26.0) 07/08/17 11:40 Base Excess -2.2 mEq/L (-3.0-3.0) 07/08/17 11:40 O2 Saturation 99.0 % (92.0-100.0) 07/08/17 11:40 Darius Test NA 07/08/17 11:40 Vent Rate 14 07/08/17 11:40 Inspired O2 30 07/08/17 11:40 Tidal Volume 450 07/08/17 11:40 PEEP 5 07/08/17 11:40 Pressure (ins/psv/peep) NA 07/08/17 11:40 Critical Value E.GARCIA 07/08/17 11:40 Sodium 134 mEq/L (136-145) L 07/11/17 04:15 Potassium 3.7 mEq/L (3.5-5.1) 07/11/17 04:15 Chloride 106 mEq/L (98-107) 07/11/17 04:15 Carbon Dioxide 20.8 mEq/L (21.0-31.0) L 07/11/17 04:15 Anion Gap 10.9 (7.0-16.0) 07/11/17 04:15 BUN 23 mg/dL (7-25) 07/11/17 04:15 Creatinine 1.0 mg/dL (0.6-1.2) 07/11/17 04:15 Est GFR ( Amer) TNP 07/11/17 04:15 Est GFR (Non-Af Amer) TNP 07/11/17 04:15 BUN/Creatinine Ratio 23.0 07/11/17 04:15 Glucose 160 mg/dL (70-105) H 07/11/17 04:15 Whole Bld Lactic Acid 3.99 mmol/L (0.60-1.99) H* 07/05/17 13:00 Calcium 7.8 mg/dL (8.6-10.3) L 07/11/17 04:15 Phosphorus 1.5 mg/dL (2.5-5.0) L 07/02/17 05:20 Magnesium 1.7 mg/dL (1.9-2.7) L 07/02/17 05:20 Iron 21 07/03/17 05:48 TIBC 131 07/03/17 05:48 Iron Saturation 16 07/03/17 05:48 Unsaturated IBC 110 07/03/17 05:48 Ferritin 334 ng/mL (15-150) H 07/03/17 05:48 Total Bilirubin 0.5 mg/dL (0.3-1.0) 07/05/17 06:05 AST 16 U/L (13-39) 07/05/17 06:05 ALT 8 U/L (7-52) 07/05/17 06:05 Alkaline Phosphatase 66 U/L (34-104) 07/05/17 06:05 Troponin I 0.09 ng/mL (0.01-0.05) H* D 07/04/17 05:50 B-Natriuretic Peptide 215.0 pg/mL (5.0-100.0) H 07/01/17 14:10 Total Protein 5.6 gm/dL (6.0-8.3) L 07/05/17 06:05 Albumin 2.6 gm/dL (3.7-5.3) L 07/05/17 06:05 Globulin 3.0 gm/dL 07/05/17 06:05 Albumin/Globulin Ratio 0.9 (1.0-1.8) L 07/05/17 06:05 Triglycerides 107 mg/dL (<150) 07/04/17 05:50 Cholesterol 114 mg/dL (<200) 07/04/17 05:50 LDL Cholesterol Direct 59 mg/dL (75-193) L 07/04/17 05:50 HDL Cholesterol 31 mg/dL (23-92) 07/04/17 05:50 TSH 1.46 uIU/ml (0.34-5.60) 07/04/17 05:50 Urine Source CATH 07/05/17 18:30 Urine Color YELLOW 07/05/17 18:30 Urine Clarity CLOUDY (CLEAR) H 07/05/17 18:30 Urine pH 5.5 (4.6 - 8.0) 07/05/17 18:30 Ur Specific [place] 1.025 (1.005-1.030) 07/05/17 18:30 Urine Protein 30 mg/dL (NEGATIVE) H 07/05/17 18:30 Urine Glucose (UA) NEGATIVE mg/dL (NEGATIVE) 07/05/17 18:30 Urine Ketones TRACE mg/dL (NEGATIVE) 07/05/17 18:30 Urine Blood SMALL (NEGATIVE) H 07/05/17 18:30 Urine Nitrate NEGATIVE (NEGATIVE) 07/05/17 18:30 Urine Bilirubin NEGATIVE (NEGATIVE) 07/05/17 18:30 Urine Urobilinogen 0.2 E.U./dL (0.2 - 1.0) 07/05/17 18:30 Ur Leukocyte Esterase LARGE (NEGATIVE) H 07/05/17 18:30 Urine RBC 2-5 /hpf (0-5) 07/05/17 18:30 Urine WBC >100 /hpf (0-5) H 07/05/17 18:30 Ur Epithelial Cells FEW /lpf (FEW) 07/05/17 18:30 Urine Bacteria FEW /hpf (NONE SEEN) 07/05/17 18:30 Urine Yeast FEW /hpf (NONE SEEN) H 07/05/17 18:30 Vancomycin Trough 11.2 ug/mL (5-10) H 07/09/17 09:24 - Physical Exam Vitals and I&O: Vital Signs Temp 98 F 07/11/17 04:00 Pulse 97 07/11/17 08:59 Resp 20 07/11/17 06:00 BP 122/36 07/11/17 06:00 Pulse Ox 100 07/11/17 08:59 Intake & Output 07/10/17 07/11/17 07/11/17 18:59 06:59 18:59 Intake Total 1190 1800 Output Total 1200 400 Balance -10 1400 Weight (lbs) 55.792 kg 55.792 kg Intake: Intake, IV Amount 890 1000 D5-0.45NS 1,000 ml @ 75 640 1000 mls/hr IV .[id number] [facility] Rx #:[id number] Vancomycin HCl 1 gm In 250 Sodium Chloride 0.9% 250 ml @ 165 mls/hr IV Q24H [facility] Rx#:[id number] Tube Feeding 300 600 Other 200 Output: Urine 1200 400 Other: # Bowel Movements 1 4 Stool Characteristics Soft Formed Brown Weight Source Bedscale Bedscale Active Medications: Current Medications Acetaminophen (Tylenol) 650 mg PO Q4H PRN PRN Reason: Fever > 101 Stop: 08/30/17 22:06 Last Admin: 07/09/17 16:35 Dose: 650 mg Albuterol/Ipratropium (Duoneb Neb) 3 ml HHN Q4HRT PRN PRN Reason: Wheezing Stop: 08/30/17 22:13 Albuterol/Ipratropium (Duoneb Neb) 3 ml HHN Q6HRT [facility] Stop: 08/31/17 00:59 Last Admin: 07/11/17 07:02 Dose: 3 ml Ascorbic Acid (Vitamin C) 500 mg PO DAILY [facility] Stop: 08/31/17 08:59 Last Admin: 07/11/17 08:38 Dose: 500 mg Baclofen (Lioresal) 5 mg PO TID [facility] Stop: 09/06/17 08:59 Last Admin: 07/11/17 08:38 Dose: 5 mg Bisacodyl (Dulcolax 10 Mg Supp) 10 mg RC HS PRN PRN Reason: BOWEL CARE MANAGEMENT Stop: 08/30/17 22:18 Budesonide (Pulmicort) 0.5 mg HHN BIDRT [facility] Stop: 08/31/17 18:59 Last Admin: 07/11/17 07:02 Dose: 0.5 mg Chlorhexidine Gluconate (Peridex) 15 ml MM 0800,1999 [facility] Stop: 09/03/17 19:59 Last Admin: 07/11/17 08:40 Dose: 15 ml Cyproheptadine HCl (Periactin) 4 mg PO BID [facility] Stop: 08/31/17 08:59 Last Admin: 07/11/17 08:39 Dose: 4 mg Docusate Sodium (Colace) 100 mg PO BID [facility] Stop: 08/31/17 08:59 Last Admin: 07/11/17 08:38 Dose: 100 mg Ferrous Sulfate (Iron) 325 mg PO BID [facility] Stop: 08/31/17 08:59 Last Admin: 07/11/17 08:37 Dose: 325 mg Folic Acid (Folate) 1 mg PO DAILY [facility] Stop: 08/31/17 08:59 Last Admin: 07/11/17 08:38 Dose: 1 mg Dextrose/Sodium Chloride (D5-0.45ns) 1,000 mls @ 75 mls/hr IV .[id number] [facility] Stop: 09/01/17 11:59 Last Admin: 07/11/17 01:27 Dose: 75 mls/hr Amiodarone HCl 450 mg/ Sodium (Chloride) 259 mls @ 0 mls/hr IV TITR [facility]; Titrate PRN Reason: Protocol Stop: 09/03/17 16:29 Last Titration: 07/06/17 08:00 Dose: 0 mg/min, 0 mls/hr Norepinephrine Bitartrate 4 mg (/ Sodium Chloride) 254 mls @ 0 mls/hr IV TITR [facility]; Titrate PRN Reason: Protocol Stop: 09/03/17 16:29 Vancomycin HCl 1 gm/ Sodium (Chloride) 250 mls @ 165 mls/hr IV Q24H [facility] Stop: 09/07/17 09:59 Last Infusion: 07/10/17 12:05 Dose: Infused Lactobacillus Rhamnosus (Culturelle 15b) 1 each PO DAILY [facility] Stop: 09/01/17 08:59 Last Admin: 07/11/17 08:38 Dose: 1 each Lactulose (Cephulac) 20 gm PO QID PRN PRN Reason: Constipation Stop: 08/30/17 22:18 Last Admin: 07/08/17 10:11 Dose: 20 gm Lorazepam (Ativan) 1 mg IVP Q4HR PRN; Protocol PRN Reason: Anxiety Stop: 09/04/17 08:31 Last Admin: 07/08/17 21:57 Dose: 1 mg Miscellaneous (Probiotic Screen) 1 ea PRN PRN PRN Reason: PROTOCOL Stop: 09/01/17 08:44 Miscellaneous (Vancomycin Iv Per Pharmacy) 1 [facility] PRN PRN PRN Reason: PROTOCOL Stop: 09/03/17 11:06 Multivitamins/Vitamin C (Theragran) 1 tab PO DAILY [facility] Stop: 08/31/17 08:59 Last Admin: 07/11/17 08:37 Dose: 1 tab Nicotine (Nicotine Transdermal System) 14 mg TD DAILY [facility] Stop: 09/04/17 08:59 Last Admin: 07/11/17 08:39 Dose: 14 mg Pantoprazole Sodium (Protonix) 40 mg IVP DAILY [facility] Stop: 09/04/17 08:59 Last Admin: 07/11/17 08:37 Dose: 40 mg General: Other (intubated, cachectic appearing, not resposive) HEENT: Atraumatic, Other (no dc) Neck: Supple, no JVD, no Thyromegaly Cardiovascular: Regular rate, Other (in A fib) Lungs: Other (Intubated, has bl rales) Abdomen: Bowel sounds, Soft, no Tender, no Hepatomegaly Extremities: Edema, no Clubbing Neurological: Other (Pt unable to participate in test) Skin: no Rash Psych/Mental Status: Other (no psychosis) - Procedures Procedures: Procedures Procedure Code Date INSERT EMERGENCY AIRWAY 04905 07/01/17 INSERTION OF ENDOTRACHEAL AIRWAY INTO TRACHEA, VIA OPENING [id number] 07/01/17 RESPIRATORY VENTILATION, GREATER THAN 96 CONSECUTIVE HOURS [id number] 07/01/17 VENT MGMT INPAT IN DAY 14868 07/01/17 Assessment/Plan - Problem List Patient Problems: All Active Problems WEAKESS AND POOR ORAL INTAKE (Acute) - Assessment Assessment: * Advanced metastatic cancer * poor functional status * Anemia likely of chronic disease * Respiratory failure s/p intubation 07/05 iron studies cw anemia of chronic disease. continue anticoagulation monitor hgb and transfuse for < 7.5 Nutritional Asmnt/Malnutr-PDOC - Dietary Evaluation Malnutrition Findings (Please click <Entered> for more info): Nutritional Asmnt/Malnutrition Start: 07/03/17 13: 22 Text: Status: Complete Freq: Document 07/03/17 13:22 MMULJENN (Rec: 07/03/17 13:35 MMULJENN ELLER- [email or web address]) Nutritional Asmnt/Malnutrition Patient General Information Nutritional Screening Consult Diagnosis UTI, Failure to thrive, hypokalemia Pertinent Medical Hx/Surgical Hx CAD, HTN, COPD, Stage 4 lung cancer, peripheral neuropathy, constipation, GERD, anxiety, low back pain Subjective Information Consult received for Failure to Thrive. Current Diet Order/ Nutrition Support Regular diet, pureed with mechaical soft Patient / S.O Not Indicated Pertinent Medications Vitamin C, dulcolax, D5-0.45 NS @ 75 ml/hr, colace, iron, folate, lactulose, theragran Pertinent Labs (07/02) P 1.5, Mg 1.7, albumin 2.9 Nutritional Hx/Data Height 1.6 m Height (Calculated Centimeters) 160.0 Current Weight (lbs) 54.885 kg Weight (Calculated Kilograms) 54.9 Weight (Calculated Grams) 00069.7 [place] Body Weight 115 % [place] Body Weight 105 Body Mass Index (BMI) 21.4 Recent Weight Change No Weight Status Approriate GI Symptoms GI Symptoms None Last BM Prior to admission Difficult in: None Food Allergies No Cultural/Ethnic/[employer] Belief None indicated Skin Integrity/Comment: Pradeep Cook Current %PO Poor (25-49%) Estimated Nutritional Goals BEE in Kcals: Using Current wt Calories/Kcals/Kg 55kg CBW (25-30kcal/kg) Kcals Calculated 1067-7934 kcal/day Protein: Using Current wt Protein g/k-1.2 gm/kg Protein Calculated 55-65 gm/day Fluid: ml 3987-9422 ml/day (1 ml/kcal) Nutritional Problem 2. Problem Problem Inadequate oral intake related to Etiology poor appetite aeb Signs/Symptoms: meeting <75% of estimated nutrient needs 1. Problem Problem Altered nutrition related lab values related to Etiology electrolyte imbalance aeb Signs/Symptoms: P 1.5, Mg 1.7 Intervention/Recommendation Comments 1. Continue pureed diet as tolerated by patient. 2. RN To assist with feedings and encourage oral intake. 3. Consider adding Boost plus between meals to optimize calorie and protein intake. Expected Outcomes/Goals Expected Outcomes/Goals Oral intake to meet >75% of needs, weight stable, nutrition labs WNL F/U MR 07/06-
--- NOTE | 2017-07-11 12:44 | Infectious Disease Prog Note ---
Infectious Disease Subjective - Review of Systems Service Date: 07/11/17 Subjective: There is no new change. Patient remains intubated orally, on the ventilator support. Infectious Disease Objective - Results Result Diagrams: 07/11/17 04:15 07/11/17 04:15 Recent Labs: Laboratory Last Values WBC 18.4 Th/cmm (4.8-10.8) H 07/11/17 04:15 RBC 2.49 Mil/cmm (3.80-5.20) L 07/11/17 04:15 Hgb 7.5 gm/dL (12-16) L* 07/11/17 04:15 Hct 21.5 % (41.0-60) L 07/11/17 04:15 MCV 86.6 fl (81-100) 07/11/17 04:15 MCH 30.2 pg (27.0-31.0) 07/11/17 04:15 MCHC Differential 34.9 pg (28.0-36.0) 07/11/17 04:15 RDW 15.8 % (11.5-20.0) 07/11/17 04:15 Plt Count 434 Th/cmm (150-400) H D 07/11/17 04:15 MPV 7.7 fl 07/11/17 04:15 Neutrophils % FUR TAILOR 07/11/17 04:15 Band Neutrophils % 5 % (0-10) 07/11/17 04:15 Lymphocytes % FUR TAILOR 07/11/17 04:15 Monocytes % FUR TAILOR 07/11/17 04:15 Eosinophils % FUR TAILOR 07/11/17 04:15 Basophils % FUR TAILOR 07/11/17 04:15 Neutrophils (Manual) 84 % (40-80) H 07/11/17 04:15 Lymphocytes 6 % (20-50) L 07/11/17 04:15 Monocytes 5 % (2-10) 07/11/17 04:15 Eosinophils 0 % (0-5) 07/11/17 04:15 Basophils 0 % (0-3) 07/11/17 04:15 Platelet Estimate ADEQUATE (NORMAL) 07/11/17 04:15 Platelet Morphology NORMAL (NORMAL) 07/11/17 04:15 RBC Morph Micro Appear NORMAL (NORMAL) 07/11/17 04:15 Specimen Source Arterial 07/08/17 11:40 Sample Site LB 07/08/17 11:40 pH 7.45 (7.35-7.45) 07/08/17 11:40 pCO2 30.0 mmHg (35.0-45.0) L 07/08/17 11:40 pO2 128.0 mmHg (80.0-100.0) H 07/08/17 11:40 HCO3 23.3 mEq/L (20.0-26.0) 07/08/17 11:40 Base Excess -2.2 mEq/L (-3.0-3.0) 07/08/17 11:40 O2 Saturation 99.0 % (92.0-100.0) 07/08/17 11:40 Darius Test NA 07/08/17 11:40 Vent Rate 14 07/08/17 11:40 Inspired O2 30 07/08/17 11:40 Tidal Volume 450 07/08/17 11:40 PEEP 5 07/08/17 11:40 Pressure (ins/psv/peep) NA 07/08/17 11:40 Critical Value E.GARCIA 07/08/17 11:40 Sodium 134 mEq/L (136-145) L 07/11/17 04:15 Potassium 3.7 mEq/L (3.5-5.1) 07/11/17 04:15 Chloride 106 mEq/L (98-107) 07/11/17 04:15 Carbon Dioxide 20.8 mEq/L (21.0-31.0) L 07/11/17 04:15 Anion Gap 10.9 (7.0-16.0) 07/11/17 04:15 BUN 23 mg/dL (7-25) 07/11/17 04:15 Creatinine 1.0 mg/dL (0.6-1.2) 07/11/17 04:15 Est GFR ( Amer) TNP 07/11/17 04:15 Est GFR (Non-Af Amer) TNP 07/11/17 04:15 BUN/Creatinine Ratio 23.0 07/11/17 04:15 Glucose 160 mg/dL (70-105) H 07/11/17 04:15 Whole Bld Lactic Acid 3.99 mmol/L (0.60-1.99) H* 07/05/17 13:00 Calcium 7.8 mg/dL (8.6-10.3) L 07/11/17 04:15 Phosphorus 1.5 mg/dL (2.5-5.0) L 07/02/17 05:20 Magnesium 1.7 mg/dL (1.9-2.7) L 07/02/17 05:20 Iron 21 07/03/17 05:48 TIBC 131 07/03/17 05:48 Iron Saturation 16 07/03/17 05:48 Unsaturated IBC 110 07/03/17 05:48 Ferritin 334 ng/mL (15-150) H 07/03/17 05:48 Total Bilirubin 0.5 mg/dL (0.3-1.0) 07/05/17 06:05 AST 16 U/L (13-39) 07/05/17 06:05 ALT 8 U/L (7-52) 07/05/17 06:05 Alkaline Phosphatase 66 U/L (34-104) 07/05/17 06:05 Troponin I 0.09 ng/mL (0.01-0.05) H* D 07/04/17 05:50 B-Natriuretic Peptide 215.0 pg/mL (5.0-100.0) H 07/01/17 14:10 Total Protein 5.6 gm/dL (6.0-8.3) L 07/05/17 06:05 Albumin 2.6 gm/dL (3.7-5.3) L 07/05/17 06:05 Globulin 3.0 gm/dL 07/05/17 06:05 Albumin/Globulin Ratio 0.9 (1.0-1.8) L 07/05/17 06:05 Triglycerides 107 mg/dL (<150) 07/04/17 05:50 Cholesterol 114 mg/dL (<200) 07/04/17 05:50 LDL Cholesterol Direct 59 mg/dL (75-193) L 07/04/17 05:50 HDL Cholesterol 31 mg/dL (23-92) 07/04/17 05:50 TSH 1.46 uIU/ml (0.34-5.60) 07/04/17 05:50 Urine Source CATH 07/05/17 18:30 Urine Color YELLOW 07/05/17 18:30 Urine Clarity CLOUDY (CLEAR) H 07/05/17 18:30 Urine pH 5.5 (4.6 - 8.0) 07/05/17 18:30 Ur Specific [place] 1.025 (1.005-1.030) 07/05/17 18:30 Urine Protein 30 mg/dL (NEGATIVE) H 07/05/17 18:30 Urine Glucose (UA) NEGATIVE mg/dL (NEGATIVE) 07/05/17 18:30 Urine Ketones TRACE mg/dL (NEGATIVE) 07/05/17 18:30 Urine Blood SMALL (NEGATIVE) H 07/05/17 18:30 Urine Nitrate NEGATIVE (NEGATIVE) 07/05/17 18:30 Urine Bilirubin NEGATIVE (NEGATIVE) 07/05/17 18:30 Urine Urobilinogen 0.2 E.U./dL (0.2 - 1.0) 07/05/17 18:30 Ur Leukocyte Esterase LARGE (NEGATIVE) H 07/05/17 18:30 Urine RBC 2-5 /hpf (0-5) 07/05/17 18:30 Urine WBC >100 /hpf (0-5) H 07/05/17 18:30 Ur Epithelial Cells FEW /lpf (FEW) 07/05/17 18:30 Urine Bacteria FEW /hpf (NONE SEEN) 07/05/17 18:30 Urine Yeast FEW /hpf (NONE SEEN) H 07/05/17 18:30 Stool Occult Blood POSITIVE (NEGATIVE) H 07/11/17 09:30 Vancomycin Trough 11.2 ug/mL (5-10) H 07/09/17 09:24 - Physical Exam Vitals and I&O: Vital Signs Temp 99.1 F 07/11/17 12:00 Pulse 86 07/11/17 12:00 Resp 25 07/11/17 12:00 BP 118/59 07/11/17 12:00 Pulse Ox 100 07/11/17 12:00 Intake & Output 07/10/17 07/11/17 07/11/17 18:59 06:59 18:59 Intake Total 1190 1800 Output Total 1200 400 Balance -10 1400 Weight (lbs) 55.792 kg 55.792 kg Intake: Intake, IV Amount 890 1000 D5-0.45NS 1,000 ml @ 75 640 1000 mls/hr IV .[id number] [facility] Rx #:[id number] Vancomycin HCl 1 gm In 250 Sodium Chloride 0.9% 250 ml @ 165 mls/hr IV Q24H [facility] Rx#:[id number] Tube Feeding 300 600 Other 200 Output: Urine 1200 400 Other: # Bowel Movements 1 4 Stool Characteristics Soft Soft Formed Brown Brown Weight Source Bedscale Bedscale Active Medications: Current Medications Acetaminophen (Tylenol) 650 mg PO Q4H PRN PRN Reason: Fever > 101 Stop: 08/30/17 22:06 Last Admin: 07/11/17 12:17 Dose: 650 mg Albuterol/Ipratropium (Duoneb Neb) 3 ml HHN Q4HRT PRN PRN Reason: Wheezing Stop: 08/30/17 22:13 Albuterol/Ipratropium (Duoneb Neb) 3 ml HHN Q6HRT [facility] Stop: 08/31/17 00:59 Last Admin: 07/11/17 07:02 Dose: 3 ml Ascorbic Acid (Vitamin C) 500 mg PO DAILY [facility] Stop: 08/31/17 08:59 Last Admin: 07/11/17 08:38 Dose: 500 mg Baclofen (Lioresal) 5 mg PO TID [facility] Stop: 09/06/17 08:59 Last Admin: 07/11/17 08:38 Dose: 5 mg Bisacodyl (Dulcolax 10 Mg Supp) 10 mg RC HS PRN PRN Reason: BOWEL CARE MANAGEMENT Stop: 08/30/17 22:18 Budesonide (Pulmicort) 0.5 mg HHN BIDRT [facility] Stop: 08/31/17 18:59 Last Admin: 07/11/17 07:02 Dose: 0.5 mg Chlorhexidine Gluconate (Peridex) 15 ml MM 0800,2000 [facility] Stop: 09/03/17 19:59 Last Admin: 07/11/17 08:40 Dose: 15 ml Cyproheptadine HCl (Periactin) 4 mg PO BID [facility] Stop: 08/31/17 08:59 Last Admin: 07/11/17 08:39 Dose: 4 mg Docusate Sodium (Colace) 100 mg PO BID [facility] Stop: 08/31/17 08:59 Last Admin: 07/11/17 08:38 Dose: 100 mg Ferrous Sulfate (Iron) 325 mg PO BID [facility] Stop: 08/31/17 08:59 Last Admin: 07/11/17 08:37 Dose: 325 mg Folic Acid (Folate) 1 mg PO DAILY [facility] Stop: 08/31/17 08:59 Last Admin: 07/11/17 08:38 Dose: 1 mg Dextrose/Sodium Chloride (D5-0.45ns) 1,000 mls @ 75 mls/hr IV .[id number] [facility] Stop: 09/01/17 11:59 Last Admin: 07/11/17 01:27 Dose: 75 mls/hr Amiodarone HCl 450 mg/ Sodium (Chloride) 259 mls @ 0 mls/hr IV TITR [facility]; Titrate PRN Reason: Protocol Stop: 09/03/17 16:29 Last Titration: 07/06/17 08:00 Dose: 0 mg/min, 0 mls/hr Norepinephrine Bitartrate 4 mg (/ Sodium Chloride) 254 mls @ 0 mls/hr IV TITR [facility]I; Titrate PRN Reason: Protocol Stop: 09/03/17 16:29 Vancomycin HCl 1 gm/ Sodium (Chloride) 250 mls @ 165 mls/hr IV Q24H [facility] Stop: 07/11/17 17:00 Last Admin: 07/11/17 12:16 Dose: 165 mls/hr Vancomycin HCl 1 gm/ Sodium (Chloride) 250 mls @ 165 mls/hr IV Q18H [facility] Stop: 09/10/17 02:59 Lactobacillus Rhamnosus (Culturelle 15b) 1 each PO DAILY [facility] Stop: 09/01/17 08:59 Last Admin: 07/11/17 08:38 Dose: 1 each Lactulose (Cephulac) 20 gm PO QID PRN PRN Reason: Constipation Stop: 08/30/17 22:18 Last Admin: 07/08/17 10:11 Dose: 20 gm Lorazepam (Ativan) 1 mg IVP Q4HR PRN; Protocol PRN Reason: Anxiety Stop: 09/04/17 08:31 Last Admin: 07/08/17 21:57 Dose: 1 mg Miscellaneous (Probiotic Screen) 1 ea [facility] PRN PRN PRN Reason: PROTOCOL Stop: 09/01/17 08:44 Miscellaneous (Vancomycin Iv Per Pharmacy) 1 ea [facility] PRN PRN PRN Reason: PROTOCOL Stop: 09/03/17 11:06 Multivitamins/Vitamin C (Theragran) 1 tab PO DAILY [facility] Stop: 08/31/17 08:59 Last Admin: 07/11/17 08:37 Dose: 1 tab Nicotine (Nicotine Transdermal System) 14 mg TD DAILY [facility] Stop: 09/04/17 08:59 Last Admin: 07/11/17 08:39 Dose: 14 mg Pantoprazole Sodium (Protonix) 40 mg IVP DAILY [facility] Stop: 09/04/17 08:59 Last Admin: 07/11/17 08:37 Dose: 40 mg General: no acute distress HEENT: atraumatic, normocephalic, PERRLA Neck: supple, no thyromegaly Cardiovascular: S1S2, regular Lungs: clear to percussion, rhonchi Abdomen: soft, no tender, no distended, no hepatomegaly Extremities: no cyanosis, no clubbing, no edema Neurological: awake, alert - Procedures Procedures: Procedures Procedure Code Date INSERT EMERGENCY AIRWAY 72958 07/01/17 INSERTION OF ENDOTRACHEAL AIRWAY INTO TRACHEA, VIA OPENING [id number] 07/01/17 RESPIRATORY VENTILATION, GREATER THAN 96 CONSECUTIVE HOURS [id number] 07/01/17 VENT MGMT INPAT INIT DAY 17794 07/01/17 Infectious Disease Assmt/Plan - Problem List Patient Problems: All Active Problems WEAKESS AND POOR ORAL INTAKE (Acute) - Assessment Assessment: 1. Leukocytosis. Fever, sepsis. 2. Pneumonia. 3. Stage IV lung CA. 4. Protein calorie malnutrion, 5. VDRF. 6. ALTERED MENTAL STATUS. - Plan Plan: Continue Zosyn, and vancomycin IV. Nutritional Asmnt/Malnutr-PDOC - Dietary Evaluation Malnutrition Findings (Please click <Entered> for more info): Nutritional Asmnt/Malnutrition Start: 07/03/17 13: 22 Text: Status: Complete Freq: Document 07/03/17 13:22 MMULJENN (Rec: 07/03/17 13:35 [facility]ULJENN [facility] Nutritional Asmnt/Malnutrition Patient General Information Nutritional Screening Consult Diagnosis UTI, Failure to thrive, hypokalemia Pertinent Medical Hx/Surgical Hx CAD, HTN, COPD, Stage 4 lung cancer, peripheral neuropathy, constipation, GERD, anxiety, low back pain Subjective Information Consult received for Failure to Thrive. Current Diet Order/ Nutrition Support Regular diet, pureed with mechaical soft Patient / S.O Not Indicated Pertinent Medications Vitamin C, dulcolax, D5-0.45 NS @ 75 ml/hr, colace, iron, folate, lactulose, theragran Pertinent Labs (07/02) P 1.5, Mg 1.7, albumin 2.9 Nutritional Hx/Data Height 1.6 m Height (Calculated Centimeters) 160.0 Current Weight (lbs) 54.885 kg Weight (Calculated Kilograms) 54.9 Weight (Calculated Grams) 62085.7 [place] Body Weight 115 % [place] Body Weight 105 Body Mass Index (BMI) 21.4 Recent Weight Change No Weight Status Approriate GI Symptoms GI Symptoms None Last BM Prior to admission Difficult in: None Food Allergies No Cultural/Ethnic/Church Belief None indicated Skin Integrity/Comment: Pradeep Cook Current %PO Poor (25-49%) Estimated Nutritional Goals BEE in Kcals: Using Current wt Calories/Kcals/Kg 55kg CBW (25-30kcal/kg) Kcals Calculated 0574-5783 kcal/day Protein: Using Current wt Protein g/k-1.2 gm/kg Protein Calculated 55-65 gm/day Fluid: ml 0542-9702 ml/day (1 ml/kcal) Nutritional Problem 2. Problem Problem Inadequate oral intake related to Etiology poor appetite aeb Signs/Symptoms: meeting <75% of estimated nutrient needs 1. Problem Problem Altered nutrition related lab values related to Etiology electrolyte imbalance aeb Signs/Symptoms: P 1.5, Mg 1.7 Intervention/Recommendation Comments 1. Continue pureed diet as tolerated by patient. 2. RN To assist with feedings and encourage oral intake. 3. Consider adding Boost plus between meals to optimize calorie and protein intake. Expected Outcomes/Goals Expected Outcomes/Goals Oral intake to meet >75% of needs, weight stable, nutrition labs WNL F/U MR 07/06-
[2017-07-11] MEDS: methylPREDNISolone SS 40 mg Vial IVP SCH (21:17)
[2017-07-12] MEDS: Albuterol/Ipratropium Neb 3 ML AERS HHN SCH ×4 (00:07→18:39)
[2017-07-12] MEDS: D5-0.45NS 1,000 ML IV SCH (04:57)
[2017-07-12] MEDS: methylPREDNISolone SS 40 mg Vial IVP SCH ×3 (05:11→20:52)
[2017-07-12 05:46] LABS: HEMOGLOBIN 8.4 gm/dL (12-16); LYMPHOCYTE ABSOLUTE 0.4 Th/cmm (1.5-3.0); MEAN CELL VOLUME 88.2 fl (81-100); MEAN CORPUSCULAR HEMOGLOBIN 29.6 pg (27.0-31.0); MEAN CORPUSCULAR HGB CONC 33.5 pg (28.0-36.0); MEAN PLATELET VOLUME 7.6 fl; MONOCYTE ABSOLUTE 0.1 Th/cmm (0.3-1.0); NEUTROPHILE ABSOLUTE 11.3 Th/cmm (1.8-8.0); PLATELET COUNT 368 Th/cmm (150-400); RED BLOOD COUNT 2.84 Mil/cmm (3.80-5.20); WHITE BLOOD COUNT 11.8 Th/cmm (4.8-10.8)
[2017-07-12 05:47] LABS: % EOSINOPHILS 0.2 % (0.0-5.0); % LYMPHOCYTES 3.1 % (20.0-50.0); % MONOCYTES 1.1 % (2.0-10.0); % NEUTROPHILS 95.6 % (40.0-80.0)
[2017-07-12] MEDS: Budesonide 0.5 Mg/2 mL Ud HHN SCH ×2 (08:06→18:39)
[2017-07-12] MEDS: Chlorhexidine Gluconate 0.12% 15mL Mouthwash MM SCH ×2 (08:35→20:54)
[2017-07-12] MEDS: Ferrous Sulfate 325 MG TAB PO SCH ×2 (08:36→16:48)
[2017-07-12] MEDS: Multivitamin Tab PO SCH (08:36)
[2017-07-12] MEDS: Lactobacillus Rhamnosus GG 15 Billion CFU CAP.SPRINK PO SCH (08:36)
[2017-07-12] MEDS: Cyproheptadine 4 mg Tab PO SCH ×2 (08:36→16:48)
[2017-07-12] MEDS: Nicotine 14 mg/24 hr Tdm TD SCH (08:36)
--- NOTE | 2017-07-12 10:09 | Infectious Disease Prog Note ---
Infectious Disease Subjective - Review of Systems Service Date: 07/12/17 Subjective: There is no new change. Patient remains intubated orally, on the ventilator support. Infectious Disease Objective - Results Result Diagrams: 07/12/17 04:20 07/11/17 04:15 Recent Labs: Laboratory Last Values WBC 11.8 Th/cmm (4.8-10.8) H 07/12/17 04:20 RBC 2.84 Mil/cmm (3.80-5.20) L 07/12/17 04:20 Hgb 8.4 gm/dL (12-16) L 07/12/17 04:20 Hct 25.0 % (41.0-60) L 07/12/17 04:20 MCV 88.2 fl (81-100) 07/12/17 04:20 MCH 29.6 pg (27.0-31.0) 07/12/17 04:20 MCHC Differential 33.5 pg (28.0-36.0) 07/12/17 04:20 RDW 16.0 % (11.5-20.0) 07/12/17 04:20 Plt Count 368 Th/cmm (150-400) 07/12/17 04:20 MPV 7.6 fl 07/12/17 04:20 Neutrophils % 95.6 % (40.0-80.0) H 07/12/17 04:20 Band Neutrophils % 5 % (0-10) 07/11/17 04:15 Lymphocytes % 3.1 % (20.0-50.0) L 07/12/17 04:20 Monocytes % 1.1 % (2.0-10.0) L 07/12/17 04:20 Eosinophils % 0.2 % (0.0-5.0) 07/12/17 04:20 Basophils % 0.0 % (0.0-2.0) 07/12/17 04:20 Neutrophils (Manual) 84 % (40-80) H 07/11/17 04:15 Lymphocytes 6 % (20-50) L 07/11/17 04:15 Monocytes 5 % (2-10) 07/11/17 04:15 Eosinophils 0 % (0-5) 07/11/17 04:15 Basophils 0 % (0-3) 07/11/17 04:15 Platelet Estimate ADEQUATE (NORMAL) 07/11/17 04:15 Platelet Morphology NORMAL (NORMAL) 07/11/17 04:15 RBC Morph Micro Appear NORMAL (NORMAL) 07/11/17 04:15 Specimen Source Arterial 07/08/17 11:40 Sample Site LB 07/08/17 11:40 pH 7.45 (7.35-7.45) 07/08/17 11:40 pCO2 30.0 mmHg (35.0-45.0) L 07/08/17 11:40 pO2 128.0 mmHg (80.0-100.0) H 07/08/17 11:40 HCO3 23.3 mEq/L (20.0-26.0) 07/08/17 11:40 Base Excess -2.2 mEq/L (-3.0-3.0) 07/08/17 11:40 O2 Saturation 99.0 % (92.0-100.0) 07/08/17 11:40 Darius Test NA 07/08/17 11:40 Vent Rate 14 07/08/17 11:40 Inspired O2 30 07/08/17 11:40 Tidal Volume 450 07/08/17 11:40 PEEP 5 07/08/17 11:40 Pressure (ins/psv/peep) NA 07/08/17 11:40 Critical Value E.GARCIA 07/08/17 11:40 Sodium 134 mEq/L (136-145) L 07/11/17 04:15 Potassium 3.7 mEq/L (3.5-5.1) 07/11/17 04:15 Chloride 106 mEq/L (98-107) 07/11/17 04:15 Carbon Dioxide 20.8 mEq/L (21.0-31.0) L 07/11/17 04:15 Anion Gap 10.9 (7.0-16.0) 07/11/17 04:15 BUN 23 mg/dL (7-25) 07/11/17 04:15 Creatinine 1.0 mg/dL (0.6-1.2) 07/11/17 04:15 Est GFR ( Amer) TNP 07/11/17 04:15 Est GFR (Non-Af Amer) TNP 07/11/17 04:15 BUN/Creatinine Ratio 23.0 07/11/17 04:15 Glucose 160 mg/dL (70-105) H 07/11/17 04:15 Whole Bld Lactic Acid 3.99 mmol/L (0.60-1.99) H* 07/05/17 13:00 Calcium 7.8 mg/dL (8.6-10.3) L 07/11/17 04:15 Phosphorus 1.5 mg/dL (2.5-5.0) L 07/02/17 05:20 Magnesium 1.7 mg/dL (1.9-2.7) L 07/02/17 05:20 Iron 21 07/03/17 05:48 TIBC 131 07/03/17 05:48 Iron Saturation 16 07/03/17 05:48 Unsaturated IBC 110 07/03/17 05:48 Ferritin 334 ng/mL (15-150) H 07/03/17 05:48 Total Bilirubin 0.5 mg/dL (0.3-1.0) 07/05/17 06:05 AST 16 U/L (13-39) 07/05/17 06:05 ALT 8 U/L (7-52) 07/05/17 06:05 Alkaline Phosphatase 66 U/L (34-104) 07/05/17 06:05 Troponin I 0.09 ng/mL (0.01-0.05) H* D 07/04/17 05:50 B-Natriuretic Peptide 215.0 pg/mL (5.0-100.0) H 07/01/17 14:10 Total Protein 5.6 gm/dL (6.0-8.3) L 07/05/17 06:05 Albumin 2.6 gm/dL (3.7-5.3) L 07/05/17 06:05 Globulin 3.0 gm/dL 07/05/17 06:05 Albumin/Globulin Ratio 0.9 (1.0-1.8) L 07/05/17 06:05 Triglycerides 107 mg/dL (<150) 07/04/17 05:50 Cholesterol 114 mg/dL (<200) 07/04/17 05:50 LDL Cholesterol Direct 59 mg/dL (75-193) L 07/04/17 05:50 HDL Cholesterol 31 mg/dL (23-92) 07/04/17 05:50 TSH 1.46 uIU/ml (0.34-5.60) 07/04/17 05:50 Urine Source CATH 07/05/17 18:30 Urine Color YELLOW 07/05/17 18:30 Urine Clarity CLOUDY (CLEAR) H 07/05/17 18:30 Urine pH 5.5 (4.6 - 8.0) 07/05/17 18:30 Ur Specific [place] 1.025 (1.005-1.030) 07/05/17 18:30 Urine Protein 30 mg/dL (NEGATIVE) H 07/05/17 18:30 Urine Glucose (UA) NEGATIVE mg/dL (NEGATIVE) 07/05/17 18:30 Urine Ketones TRACE mg/dL (NEGATIVE) 07/05/17 18:30 Urine Blood SMALL (NEGATIVE) H 07/05/17 18:30 Urine Nitrate NEGATIVE (NEGATIVE) 07/05/17 18:30 Urine Bilirubin NEGATIVE (NEGATIVE) 07/05/17 18:30 Urine Urobilinogen 0.2 E.U./dL (0.2 - 1.0) 07/05/17 18:30 Ur Leukocyte Esterase LARGE (NEGATIVE) H 07/05/17 18:30 Urine RBC 2-5 /hpf (0-5) 07/05/17 18:30 Urine WBC >100 /hpf (0-5) H 07/05/17 18:30 Ur Epithelial Cells FEW /lpf (FEW) 07/05/17 18:30 Urine Bacteria FEW /hpf (NONE SEEN) 07/05/17 18:30 Urine Yeast FEW /hpf (NONE SEEN) H 07/05/17 18:30 Stool Occult Blood POSITIVE (NEGATIVE) H 07/11/17 09:30 Vancomycin Trough 11.2 ug/mL (5-10) H 07/09/17 09:24 - Physical Exam Vitals and I&O: Vital Signs Temp 98.1 F 07/12/17 08:00 Pulse 85 07/12/17 09:50 Resp 17 07/12/17 09:00 BP 139/60 07/12/17 09:00 Pulse Ox 100 07/12/17 09:00 Intake & Output 07/11/17 07/12/17 07/12/17 18:59 06:59 18:59 Intake Total 1600 1801.25 Output Total 650 1000 Balance 950 801.25 Weight (lbs) 61.235 kg 63.458 kg Intake: Intake, IV Amount 1000 1201.25 D5-0.45NS 1,000 ml @ 75 1000 951.25 mls/hr IV .[id number] [facility] Rx #:[id number] Vancomycin HCl 1 gm In 250 Sodium Chloride 0.9% 250 ml @ 165 mls/hr IV Q18H [facility] Rx#:[id number] Tube Feeding 600 600 Output: Urine 650 1000 Other: # Bowel Movements 2 Stool Characteristics Soft Soft Soft Brown Brown Brown Green Green Weight Source Bedscale Bedscale Active Medications: Current Medications Acetaminophen (Tylenol) 650 mg PO Q4H PRN PRN Reason: Fever > 101 Stop: 08/30/17 22:06 Last Admin: 07/11/17 12:17 Dose: 650 mg Albuterol/Ipratropium (Duoneb Neb) 3 ml HHN Q4HRT PRN PRN Reason: Wheezing Stop: 08/30/17 22:13 Albuterol/Ipratropium (Duoneb Neb) 3 ml HHN Q6HRT [facility] Stop: 08/31/17 00:59 Last Admin: 07/12/17 07:47 Dose: 3 ml Ascorbic Acid (Vitamin C) 500 mg PO DAILY [facility] Stop: 08/31/17 08:59 Last Admin: 07/12/17 08:36 Dose: 500 mg Baclofen (Lioresal) 5 mg PO TID [facility] Stop: 09/06/17 08:59 Last Admin: 07/12/17 08:36 Dose: 5 mg Bisacodyl (Dulcolax 10 Mg Supp) 10 mg RC HS PRN PRN Reason: BOWEL CARE MANAGEMENT Stop: 08/30/17 22:18 Budesonide (Pulmicort) 0.5 mg HHN BIDRT [facility] Stop: 08/31/17 18:59 Last Admin: 07/12/17 08:06 Dose: 0.5 mg Chlorhexidine Gluconate (Peridex) 15 ml MM 0800,1999 [facility] Stop: 09/03/17 19:59 Last Admin: 07/12/17 08:35 Dose: 15 ml Cyproheptadine HCl (Periactin) 4 mg PO BID [facility] Stop: 08/31/17 08:59 Last Admin: 07/12/17 08:36 Dose: 4 mg Docusate Sodium (Colace) 100 mg PO BID [facility] Stop: 08/31/17 08:59 Last Admin: 07/12/17 08:36 Dose: 100 mg Ferrous Sulfate (Iron) 325 mg PO BID [facility] Stop: 08/31/17 08:59 Last Admin: 07/12/17 08:36 Dose: 325 mg Folic Acid (Folate) 1 mg PO DAILY [facility] Stop: 08/31/17 08:59 Last Admin: 07/12/17 08:36 Dose: 1 mg Dextrose/Sodium Chloride (D5-0.45ns) 1,000 mls @ 75 mls/hr IV .[id number] [facility]ADI Stop: 09/01/17 11:59 Last Infusion: 07/12/17 05:27 Dose: 75 mls/hr Amiodarone HCl 450 mg/ Sodium (Chloride) 259 mls @ 0 mls/hr IV TITR SHADI; Titrate PRN Reason: Protocol Stop: 09/03/17 16:29 Last Titration: 07/06/17 08:00 Dose: 0 mg/min, 0 mls/hr Norepinephrine Bitartrate 4 mg (/ Sodium Chloride) 254 mls @ 0 mls/hr IV TITR SHADI; Titrate PRN Reason: Protocol Stop: 09/03/17 16:29 Vancomycin HCl 1 gm/ Sodium (Chloride) 250 mls @ 165 mls/hr IV Q18H [facility] Stop: 09/10/17 02:59 Last Infusion: 07/12/17 06:50 Dose: Infused Lactobacillus Rhamnosus (Culturelle 15b) 1 each PO DAILY [facility] Stop: 09/01/17 08:59 Last Admin: 07/12/17 08:36 Dose: 1 each Lactulose (Cephulac) 20 gm PO QID PRN PRN Reason: Constipation Stop: 08/30/17 22:18 Last Admin: 07/08/17 10:11 Dose: 20 gm Lorazepam (Ativan) 1 mg IVP Q4HR PRN; Protocol PRN Reason: Anxiety Stop: 09/04/17 08:31 Last Admin: 07/08/17 21:57 Dose: 1 mg Methylprednisolone Sodium Succinate (Solu-Medrol) 40 mg IVP Q8HR [facility] Stop: 09/09/17 20:59 Last Admin: 07/12/17 05:11 Dose: 40 mg Miscellaneous (Probiotic Screen) 1 ea MC PRN PRN PRN Reason: PROTOCOL Stop: 09/01/17 08:44 Miscellaneous (Vancomycin Iv Per Pharmacy) 1 micha PRN PRN PRN Reason: PROTOCOL Stop: 09/03/17 11:06 Multivitamins/Vitamin C (Theragran) 1 tab PO DAILY [facility] Stop: 08/31/17 08:59 Last Admin: 07/12/17 08:36 Dose: 1 tab Nicotine (Nicotine Transdermal System) 14 mg TD DAILY [facility] Stop: 09/04/17 08:59 Last Admin: 07/12/17 08:36 Dose: 14 mg Pantoprazole Sodium (Protonix) 40 mg IVP DAILY [facility] Stop: 09/04/17 08:59 Last Admin: 07/12/17 08:36 Dose: 40 mg General: no acute distress, well developed, well nourished HEENT: atraumatic, normocephalic, PERRLA, EOMI Neck: supple, no thyromegaly Cardiovascular: S1S2, regular Lungs: clear to auscultation bilaterally, clear to percussion Abdomen: soft, no tender, no distended Extremities: no cyanosis, no clubbing, no edema Neurological: awake, alert, oriented Skin: intact - Procedures Procedures: Procedures Procedure Code Date INSERT EMERGENCY AIRWAY 45123 07/01/17 INSERTION OF ENDOTRACHEAL AIRWAY INTO [place], VIA OPENING [id number] 07/01/17 RESPIRATORY VENTILATION, GREATER THAN 96 CONSECUTIVE HOURS [id number] 07/01/17 VENT MGMT INPAT INIT DAY 17917 07/01/17 Infectious Disease Assmt/Plan - Problem List Patient Problems: All Active Problems WEAKESS AND POOR ORAL INTAKE (Acute) - Assessment Assessment: 1. Leukocytosis. Fever, sepsis. 2. Pneumonia. 3. Stage IV lung CA. 4. Protein calorie malnutrion, 5. VDRF. 6. ALTERED MENTAL STATUS. - Plan Plan: Continue Zosyn, and vancomycin IV. Nutritional Asmnt/Malnutr-PDOC - Dietary Evaluation Malnutrition Findings (Please click <Entered> for more info): Nutritional Asmnt/Malnutrition Start: 07/03/17 13: 22 Text: Status: Complete Freq: Document 07/03/17 13:22 MMULJENN (Rec: 07/03/17 13:35 MMULJENN [facility]) Nutritional Asmnt/Malnutrition Patient General Information Nutritional Screening Consult Diagnosis UTI, Failure to thrive, hypokalemia Pertinent Medical Hx/Surgical Hx CAD, HTN, COPD, Stage 4 lung cancer, peripheral neuropathy, constipation, GERD, anxiety, low back pain Subjective Information Consult received for Failure to Thrive. Current Diet Order/ Nutrition Support Regular diet, pureed with mechaical soft Patient / S.O Not Indicated Pertinent Medications Vitamin C, dulcolax, D5-0.45 NS @ 75 ml/hr, colace, iron, folate, lactulose, theragran Pertinent Labs (07/02) P 1.5, Mg 1.7, albumin 2.9 Nutritional Hx/Data Height 1.6 m Height (Calculated Centimeters) 160.0 Current Weight (lbs) 54.885 kg Weight (Calculated Kilograms) 54.9 Weight (Calculated Grams) 81068.7 Elizabeth Body Weight 115 % Elizabeth Body Weight 105 Body Mass Index (BMI) 21.4 Recent Weight Change No Weight Status Approriate GI Symptoms GI Symptoms None Last BM Prior to admission Difficult in: None Food Allergies No Cultural/Ethnic/Spiritism Belief None indicated Skin Integrity/Comment: Pradeep 15 Current %PO Poor (25-49%) Estimated Nutritional Goals BEE in Kcals: Using Current wt Calories/Kcals/Kg 55kg CBW (25-30kcal/kg) Kcals Calculated 0940-0914 kcal/day Protein: Using Current wt Protein g/k-1.2 gm/kg Protein Calculated 55-65 gm/day Fluid: ml 7511-5746 ml/day (1 ml/kcal) Nutritional Problem 2. Problem Problem Inadequate oral intake related to Etiology poor appetite aeb Signs/Symptoms: meeting <75% of estimated nutrient needs 1. Problem Problem Altered nutrition related lab values related to Etiology electrolyte imbalance aeb Signs/Symptoms: P 1.5, Mg 1.7 Intervention/Recommendation Comments 1. Continue pureed diet as tolerated by patient. 2. RN To assist with feedings and encourage oral intake. 3. Consider adding Boost plus between meals to optimize calorie and protein intake. Expected Outcomes/Goals Expected Outcomes/Goals Oral intake to meet >75% of needs, weight stable, nutrition labs WNL F/U MR 07/06-
--- NOTE | 2017-07-12 10:36 | General Progress Note ---
Subjective - Review of Systems Service Date: 07/12/17 Subjective: Pt seen and eval. In bed. Prior to being intubated, she could not hold up her head or feed herself. Incontinent. Seen by jayson, bren, and heme onc, all of whom agree with hospice care. Dr. Montanez discussed poor prog with son. No fevers or chills. WBC elevated. No falls. Pt went into A fib pm 07/04/16, and was transferred to ICU on digoxin. Intubated as of 07/05/17. Was on Amiodarone and Levophed drip, both of which are off as of 07/06/17. Pt is no longer awake. She's unresponsive. She had large bm night of 07/10/17. Objective - Results Result Diagrams: 07/12/17 04:20 07/11/17 04:15 Recent Labs: Laboratory Last Values WBC 11.8 Th/cmm (4.8-10.8) H 07/12/17 04:20 RBC 2.84 Mil/cmm (3.80-5.20) L 07/12/17 04:20 Hgb 8.4 gm/dL (12-16) L 07/12/17 04:20 Hct 25.0 % (41.0-60) L 07/12/17 04:20 MCV 88.2 fl (81-100) 07/12/17 04:20 MCH 29.6 pg (27.0-31.0) 07/12/17 04:20 MCHC Differential 33.5 pg (28.0-36.0) 07/12/17 04:20 RDW 16.0 % (11.5-20.0) 07/12/17 04:20 Plt Count 368 Th/cmm (150-400) 07/12/17 04:20 MPV 7.6 fl 07/12/17 04:20 Neutrophils % 95.6 % (40.0-80.0) H 07/12/17 04:20 Band Neutrophils % 5 % (0-10) 07/11/17 04:15 Lymphocytes % 3.1 % (20.0-50.0) L 07/12/17 04:20 Monocytes % 1.1 % (2.0-10.0) L 07/12/17 04:20 Eosinophils % 0.2 % (0.0-5.0) 07/12/17 04:20 Basophils % 0.0 % (0.0-2.0) 07/12/17 04:20 Neutrophils (Manual) 84 % (40-80) H 07/11/17 04:15 Lymphocytes 6 % (20-50) L 07/11/17 04:15 Monocytes 5 % (2-10) 07/11/17 04:15 Eosinophils 0 % (0-5) 07/11/17 04:15 Basophils 0 % (0-3) 07/11/17 04:15 Platelet Estimate ADEQUATE (NORMAL) 07/11/17 04:15 Platelet Morphology NORMAL (NORMAL) 07/11/17 04:15 RBC Morph Micro Appear NORMAL (NORMAL) 07/11/17 04:15 Specimen Source Arterial 07/08/17 11:40 Sample Site LB 07/08/17 11:40 pH 7.45 (7.35-7.45) 07/08/17 11:40 pCO2 30.0 mmHg (35.0-45.0) L 07/08/17 11:40 pO2 128.0 mmHg (80.0-100.0) H 07/08/17 11:40 HCO3 23.3 mEq/L (20.0-26.0) 07/08/17 11:40 Base Excess -2.2 mEq/L (-3.0-3.0) 07/08/17 11:40 O2 Saturation 99.0 % (92.0-100.0) 07/08/17 11:40 Darius Test NA 07/08/17 11:40 Vent Rate 14 07/08/17 11:40 Inspired O2 30 07/08/17 11:40 Tidal Volume 450 07/08/17 11:40 PEEP 5 07/08/17 11:40 Pressure (ins/psv/peep) NA 07/08/17 11:40 Critical Value E.GARCIA 07/08/17 11:40 Sodium 134 mEq/L (136-145) L 07/11/17 04:15 Potassium 3.7 mEq/L (3.5-5.1) 07/11/17 04:15 Chloride 106 mEq/L (98-107) 07/11/17 04:15 Carbon Dioxide 20.8 mEq/L (21.0-31.0) L 07/11/17 04:15 Anion Gap 10.9 (7.0-16.0) 07/11/17 04:15 BUN 23 mg/dL (7-25) 07/11/17 04:15 Creatinine 1.0 mg/dL (0.6-1.2) 07/11/17 04:15 Est GFR ( Amer) TNP 07/11/17 04:15 Est GFR (Non-Af Amer) TNP 07/11/17 04:15 BUN/Creatinine Ratio 23.0 07/11/17 04:15 Glucose 160 mg/dL (70-105) H 07/11/17 04:15 Whole Bld Lactic Acid 3.99 mmol/L (0.60-1.99) H* 07/05/17 13:00 Calcium 7.8 mg/dL (8.6-10.3) L 07/11/17 04:15 Phosphorus 1.5 mg/dL (2.5-5.0) L 07/02/17 05:20 Magnesium 1.7 mg/dL (1.9-2.7) L 07/02/17 05:20 Iron 21 07/03/17 05:48 TIBC 131 07/03/17 05:48 Iron Saturation 16 07/03/17 05:48 Unsaturated IBC 110 07/03/17 05:48 Ferritin 334 ng/mL (15-150) H 07/03/17 05:48 Total Bilirubin 0.5 mg/dL (0.3-1.0) 07/05/17 06:05 AST 16 U/L (13-39) 07/05/17 06:05 ALT 8 U/L (7-52) 07/05/17 06:05 Alkaline Phosphatase 66 U/L (34-104) 07/05/17 06:05 Troponin I 0.09 ng/mL (0.01-0.05) H* D 07/04/17 05:50 B-Natriuretic Peptide 215.0 pg/mL (5.0-100.0) H 07/01/17 14:10 Total Protein 5.6 gm/dL (6.0-8.3) L 07/05/17 06:05 Albumin 2.6 gm/dL (3.7-5.3) L 07/05/17 06:05 Globulin 3.0 gm/dL 07/05/17 06:05 Albumin/Globulin Ratio 0.9 (1.0-1.8) L 07/05/17 06:05 Triglycerides 107 mg/dL (<150) 07/04/17 05:50 Cholesterol 114 mg/dL (<200) 07/04/17 05:50 LDL Cholesterol Direct 59 mg/dL (75-193) L 07/04/17 05:50 HDL Cholesterol 31 mg/dL (23-92) 07/04/17 05:50 TSH 1.46 uIU/ml (0.34-5.60) 07/04/17 05:50 Urine Source CATH 07/05/17 18:30 Urine Color YELLOW 07/05/17 18:30 Urine Clarity CLOUDY (CLEAR) H 07/05/17 18:30 Urine pH 5.5 (4.6 - 8.0) 07/05/17 18:30 Ur Specific [place] 1.025 (1.005-1.030) 07/05/17 18:30 Urine Protein 30 mg/dL (NEGATIVE) H 07/05/17 18:30 Urine Glucose (UA) NEGATIVE mg/dL (NEGATIVE) 07/05/17 18:30 Urine Ketones TRACE mg/dL (NEGATIVE) 07/05/17 18:30 Urine Blood SMALL (NEGATIVE) H 07/05/17 18:30 Urine Nitrate NEGATIVE (NEGATIVE) 07/05/17 18:30 Urine Bilirubin NEGATIVE (NEGATIVE) 07/05/17 18:30 Urine Urobilinogen 0.2 E.U./dL (0.2 - 1.0) 07/05/17 18:30 Ur Leukocyte Esterase LARGE (NEGATIVE) H 07/05/17 18:30 Urine RBC 2-5 /hpf (0-5) 07/05/17 18:30 Urine WBC >100 /hpf (0-5) H 07/05/17 18:30 Ur Epithelial Cells FEW /lpf (FEW) 07/05/17 18:30 Urine Bacteria FEW /hpf (NONE SEEN) 07/05/17 18:30 Urine Yeast FEW /hpf (NONE SEEN) H 07/05/17 18:30 Stool Occult Blood POSITIVE (NEGATIVE) H 07/11/17 09:30 Vancomycin Trough 11.2 ug/mL (5-10) H 07/09/17 09:24 - Physical Exam Vitals and I&O: Vital Signs Temp 98.1 F 07/12/17 08:00 Pulse 85 07/12/17 09:50 Resp 17 07/12/17 09:00 BP 139/60 07/12/17 09:00 Pulse Ox 100 07/12/17 09:00 Intake & Output 07/11/17 07/12/17 07/12/17 18:59 06:59 18:59 Intake Total 1600 1801.25 Output Total 650 1000 Balance 950 801.25 Weight (lbs) 61.235 kg 63.458 kg Intake: Intake, IV Amount 1000 1201.25 D5-0.45NS 1,000 ml @ 75 1000 951.25 mls/hr IV .[id number] [facility] Rx #:[id number] Vancomycin HCl 1 gm In 250 Sodium Chloride 0.9% 250 ml @ 165 mls/hr IV Q18H [facility] Rx#:[id number] Tube Feeding 600 600 Output: Urine 650 1000 Other: # Bowel Movements 2 Stool Characteristics Soft Soft Soft Brown Brown Brown Green Green Weight Source Bedscale Bedscale Active Medications: Current Medications Acetaminophen (Tylenol) 650 mg PO Q4H PRN PRN Reason: Fever > 101 Stop: 08/30/17 22:06 Last Admin: 07/11/17 12:17 Dose: 650 mg Albuterol/Ipratropium (Duoneb Neb) 3 ml HHN Q4HRT PRN PRN Reason: Wheezing Stop: 08/30/17 22:13 Albuterol/Ipratropium (Duoneb Neb) 3 ml HHN Q6HRT [facility] Stop: 08/31/17 00:59 Last Admin: 07/12/17 07:47 Dose: 3 ml Ascorbic Acid (Vitamin C) 500 mg PO DAILY [facility] Stop: 08/31/17 08:59 Last Admin: 07/12/17 08:36 Dose: 500 mg Baclofen (Lioresal) 5 mg PO TID [facility] Stop: 09/06/17 08:59 Last Admin: 07/12/17 08:36 Dose: 5 mg Bisacodyl (Dulcolax 10 Mg Supp) 10 mg RC HS PRN PRN Reason: BOWEL CARE MANAGEMENT Stop: 08/30/17 22:18 Budesonide (Pulmicort) 0.5 mg HHN BIDRT [facility] Stop: 08/31/17 18:59 Last Admin: 07/12/17 08:06 Dose: 0.5 mg Chlorhexidine Gluconate (Peridex) 15 ml MM 799,1999 [facility] Stop: 09/03/17 19:59 Last Admin: 07/12/17 08:35 Dose: 15 ml Cyproheptadine HCl (Periactin) 4 mg PO BID [facility] Stop: 08/31/17 08:59 Last Admin: 07/12/17 08:36 Dose: 4 mg Docusate Sodium (Colace) 100 mg PO BID [facility] Stop: 08/31/17 08:59 Last Admin: 07/12/17 08:36 Dose: 100 mg Ferrous Sulfate (Iron) 325 mg PO BID [facility]I Stop: 08/31/17 08:59 Last Admin: 07/12/17 08:36 Dose: 325 mg Folic Acid (Folate) 1 mg PO DAILY [facility] Stop: 08/31/17 08:59 Last Admin: 07/12/17 08:36 Dose: 1 mg Dextrose/Sodium Chloride (D5-0.45ns) 1,000 mls @ 75 mls/hr IV .[id number] [facility] Stop: 09/01/17 11:59 Last Infusion: 07/12/17 05:27 Dose: 75 mls/hr Amiodarone HCl 450 mg/ Sodium (Chloride) 259 mls @ 0 mls/hr IV TITR SHADI; Titrate PRN Reason: Protocol Stop: 09/03/17 16:29 Last Titration: 07/06/17 08:00 Dose: 0 mg/min, 0 mls/hr Norepinephrine Bitartrate 4 mg (/ Sodium Chloride) 254 mls @ 0 mls/hr IV TITR SHADI; Titrate PRN Reason: Protocol Stop: 09/03/17 16:29 Vancomycin HCl 1 gm/ Sodium (Chloride) 250 mls @ 165 mls/hr IV Q18H [facility] Stop: 09/10/17 02:59 Last Infusion: 07/12/17 06:50 Dose: Infused Lactobacillus Rhamnosus (Culturelle 15b) 1 each PO DAILY [facility]I Stop: 09/01/17 08:59 Last Admin: 07/12/17 08:36 Dose: 1 each Lactulose (Cephulac) 20 gm PO QID PRN PRN Reason: Constipation Stop: 08/30/17 22:18 Last Admin: 07/08/17 10:11 Dose: 20 gm Lorazepam (Ativan) 1 mg IVP Q4HR PRN; Protocol PRN Reason: Anxiety Stop: 09/04/17 08:31 Last Admin: 07/08/17 21:57 Dose: 1 mg Methylprednisolone Sodium Succinate (Solu-Medrol) 40 mg IVP Q8HR [facility] Stop: 09/09/17 20:59 Last Admin: 07/12/17 05:11 Dose: 40 mg Miscellaneous (Probiotic Screen) 1 ea PRN PRN PRN Reason: PROTOCOL Stop: 09/01/17 08:44 Miscellaneous (Vancomycin Iv Per Pharmacy) 1 [facility] PRN PRN PRN Reason: PROTOCOL Stop: 09/03/17 11:06 Multivitamins/Vitamin C (Theragran) 1 tab PO DAILY [facility]ADI Stop: 08/31/17 08:59 Last Admin: 07/12/17 08:36 Dose: 1 tab Nicotine (Nicotine Transdermal System) 14 mg TD DAILY [facility] Stop: 09/04/17 08:59 Last Admin: 07/12/17 08:36 Dose: 14 mg Pantoprazole Sodium (Protonix) 40 mg IVP DAILY [facility] Stop: 09/04/17 08:59 Last Admin: 07/12/17 08:36 Dose: 40 mg General: Other (intubated, cachectic appearing, not resposive) HEENT: Atraumatic, Other (no dc) Neck: Supple, no JVD, no Thyromegaly Cardiovascular: Regular rate, Other (in A fib) Lungs: Other (Intubated, has bl rales) Abdomen: Bowel sounds, Soft, no Tender, no Hepatomegaly Extremities: Edema, no Clubbing Neurological: Other (Pt unable to participate in test) Skin: no Rash Psych/Mental Status: Other (no psychosis) - Procedures Procedures: Procedures Procedure Code Date INSERT EMERGENCY AIRWAY [id number] 07/01/17 INSERTION OF ENDOTRACHEAL AIRWAY INTO TRACHEA, VIA OPENING [id number] 07/01/17 RESPIRATORY VENTILATION, GREATER THAN 96 CONSECUTIVE HOURS [id number] 07/01/17 VENT MGMT INPAT INIT DAY 82617 07/01/17 Assessment/Plan - Problem List Patient Problems: All Active Problems WEAKESS AND POOR ORAL INTAKE (Acute) - Assessment Assessment: Septic shock A fib with RVR Fail to thrive Stage 4 lung ca Sepsis due to E Coli UTI ME Ch pain syn Anemia of ch ill Hypernatremia Hypokalemia Type 2 WI A fib - Plan Plan: Pt holds a poor progonosis. Been trying to communicate poor prognosis to the son. He wants "everything done. " Cardio, Pulm, and Heme Onc seeing pt, all of whom agree with comfort care/ hospice. On IV Zosyn and Vanco. Has been on Amiodarone and Levphed drip in ICU-now off as off 07/06/17. Intubated on 07/05/17. Elec corrected. I's and O's reviewed. Vent settings reviewed. Pt holds a poor prognosis. Son still wants everything done. No drips. Pt responsive. Weaning tried on 07/10/17, but could not tolerate it. Hgb dropping. Holding Xarelto as of 07/11/17. Check stool OB times 2. FU on CBC and Chem 7. Now she's on SIMV. Tolerating it OK. Again, advised son of the grave prognosis and the fact that pt has poor quality of life and it will not improve. He still wants "everything done." Nutritional Asmnt/Malnutr-PDOC - Dietary Evaluation Malnutrition Findings (Please click <Entered> for more info): Nutritional Asmnt/Malnutrition Start: 07/03/17 13: 22 Text: Status: Complete Freq: Document 07/03/17 13:22 [email or web address] (Rec: 07/03/17 13:35 [email or web address] ELLER- [email or web address]) Nutritional Asmnt/Malnutrition Patient General Information Nutritional Screening Consult Diagnosis UTI, Failure to thrive, hypokalemia Pertinent Medical Hx/Surgical Hx CAD, HTN, COPD, Stage 4 lung cancer, peripheral neuropathy, constipation, GERD, anxiety, low back pain Subjective Information Consult received for Failure to Thrive. Current Diet Order/ Nutrition Support Regular diet, pureed with mechaical soft Patient / S.O Not Indicated Pertinent Medications Vitamin C, dulcolax, D5-0.45 NS @ 75 ml/hr, colace, iron, folate, lactulose, theragran Pertinent Labs (07/02) P 1.5, Mg 1.7, albumin 2.9 Nutritional Hx/Data Height 1.6 m Height (Calculated Centimeters) 160.0 Current Weight (lbs) 54.885 kg Weight (Calculated Kilograms) 54.9 Weight (Calculated Grams) 91183.7 [place] Body Weight 115 % [place] Body Weight 105 Body Mass Index (BMI) 21.4 Recent Weight Change No Weight Status Approriate GI Symptoms GI Symptoms None Last BM Prior to admission Difficult in: None Food Allergies No Cultural/Ethnic/Christianity Belief None indicated Skin Integrity/Comment: Pradeep 15 Current %PO Poor (25-49%) Estimated Nutritional Goals BEE in Kcals: Using Current wt Calories/Kcals/Kg 55kg CBW (25-30kcal/kg) Kcals Calculated 1314-1549 kcal/day Protein: Using Current wt Protein g/k-1.2 gm/kg Protein Calculated 55-65 gm/day Fluid: ml 9084-1655 ml/day (1 ml/kcal) Nutritional Problem 2. Problem Problem Inadequate oral intake related to Etiology poor appetite aeb Signs/Symptoms: meeting <75% of estimated nutrient needs 1. Problem Problem Altered nutrition related lab values related to Etiology electrolyte imbalance aeb Signs/Symptoms: P 1.5, Mg 1.7 Intervention/Recommendation Comments 1. Continue pureed diet as tolerated by patient. 2. RN To assist with feedings and encourage oral intake. 3. Consider adding Boost plus between meals to optimize calorie and protein intake. Expected Outcomes/Goals Expected Outcomes/Goals Oral intake to meet >75% of needs, weight stable, nutrition labs WNL F/U MR 07/06-
--- NOTE | 2017-07-12 18:01 | General Progress Note ---
Subjective - Review of Systems Service Date: 07/12/17 Subjective: unresponsive, opens eyes Objective - Results Result Diagrams: 07/12/17 04:20 07/11/17 04:15 Recent Labs: Laboratory Last Values WBC 11.8 Th/cmm (4.8-10.8) H 07/12/17 04:20 RBC 2.84 Mil/cmm (3.80-5.20) L 07/12/17 04:20 Hgb 8.4 gm/dL (12-16) L 07/12/17 04:20 Hct 25.0 % (41.0-60) L 07/12/17 04:20 MCV 88.2 fl (81-100) 07/12/17 04:20 MCH 29.6 pg (27.0-31.0) 07/12/17 04:20 MCHC Differential 33.5 pg (28.0-36.0) 07/12/17 04:20 RDW 16.0 % (11.5-20.0) 07/12/17 04:20 Plt Count 368 Th/cmm (150-400) 07/12/17 04:20 MPV 7.6 fl 07/12/17 04:20 Neutrophils % 95.6 % (40.0-80.0) H 07/12/17 04:20 Band Neutrophils % 5 % (0-10) 07/11/17 04:15 Lymphocytes % 3.1 % (20.0-50.0) L 07/12/17 04:20 Monocytes % 1.1 % (2.0-10.0) L 07/12/17 04:20 Eosinophils % 0.2 % (0.0-5.0) 07/12/17 04:20 Basophils % 0.0 % (0.0-2.0) 07/12/17 04:20 Neutrophils (Manual) 84 % (40-80) H 07/11/17 04:15 Lymphocytes 6 % (20-50) L 07/11/17 04:15 Monocytes 5 % (2-10) 07/11/17 04:15 Eosinophils 0 % (0-5) 07/11/17 04:15 Basophils 0 % (0-3) 07/11/17 04:15 Platelet Estimate ADEQUATE (NORMAL) 07/11/17 04:15 Platelet Morphology NORMAL (NORMAL) 07/11/17 04:15 RBC Morph Micro Appear NORMAL (NORMAL) 07/11/17 04:15 Specimen Source Arterial 07/08/17 11:40 Sample Site LB 07/08/17 11:40 pH 7.45 (7.35-7.45) 07/08/17 11:40 pCO2 30.0 mmHg (35.0-45.0) L 07/08/17 11:40 pO2 128.0 mmHg (80.0-100.0) H 07/08/17 11:40 HCO3 23.3 mEq/L (20.0-26.0) 07/08/17 11:40 Base Excess -2.2 mEq/L (-3.0-3.0) 07/08/17 11:40 O2 Saturation 99.0 % (92.0-100.0) 07/08/17 11:40 Darius Test NA 07/08/17 11:40 Vent Rate 14 07/08/17 11:40 Inspired O2 30 07/08/17 11:40 Tidal Volume 450 07/08/17 11:40 PEEP 5 07/08/17 11:40 Pressure (ins/psv/peep) NA 07/08/17 11:40 Critical Value E.GARCIA 07/08/17 11:40 Sodium 134 mEq/L (136-145) L 07/11/17 04:15 Potassium 3.7 mEq/L (3.5-5.1) 07/11/17 04:15 Chloride 106 mEq/L (98-107) 07/11/17 04:15 Carbon Dioxide 20.8 mEq/L (21.0-31.0) L 07/11/17 04:15 Anion Gap 10.9 (7.0-16.0) 07/11/17 04:15 BUN 23 mg/dL (7-25) 07/11/17 04:15 Creatinine 1.0 mg/dL (0.6-1.2) 07/11/17 04:15 Est GFR ( Amer) TNP 07/11/17 04:15 Est GFR (Non-Af Amer) TNP 07/11/17 04:15 BUN/Creatinine Ratio 23.0 07/11/17 04:15 Glucose 160 mg/dL (70-105) H 07/11/17 04:15 Whole Bld Lactic Acid 3.99 mmol/L (0.60-1.99) H* 07/05/17 13:00 Calcium 7.8 mg/dL (8.6-10.3) L 07/11/17 04:15 Phosphorus 1.5 mg/dL (2.5-5.0) L 07/02/17 05:20 Magnesium 1.7 mg/dL (1.9-2.7) L 07/02/17 05:20 Iron 21 07/03/17 05:48 TIBC 131 07/03/17 05:48 Iron Saturation 16 07/03/17 05:48 Unsaturated IBC 110 07/03/17 05:48 Ferritin 334 ng/mL (15-150) H 07/03/17 05:48 Total Bilirubin 0.5 mg/dL (0.3-1.0) 07/05/17 06:05 AST 16 U/L (13-39) 07/05/17 06:05 ALT 8 U/L (7-52) 07/05/17 06:05 Alkaline Phosphatase 66 U/L (34-104) 07/05/17 06:05 Troponin I 0.09 ng/mL (0.01-0.05) H* D 07/04/17 05:50 B-Natriuretic Peptide 215.0 pg/mL (5.0-100.0) H 07/01/17 14:10 Total Protein 5.6 gm/dL (6.0-8.3) L 07/05/17 06:05 Albumin 2.6 gm/dL (3.7-5.3) L 07/05/17 06:05 Globulin 3.0 gm/dL 07/05/17 06:05 Albumin/Globulin Ratio 0.9 (1.0-1.8) L 07/05/17 06:05 Triglycerides 107 mg/dL (<150) 07/04/17 05:50 Cholesterol 114 mg/dL (<200) 07/04/17 05:50 LDL Cholesterol Direct 59 mg/dL (75-193) L 07/04/17 05:50 HDL Cholesterol 31 mg/dL (23-92) 07/04/17 05:50 TSH 1.46 uIU/ml (0.34-5.60) 07/04/17 05:50 Urine Source CATH 07/05/17 18:30 Urine Color YELLOW 07/05/17 18:30 Urine Clarity CLOUDY (CLEAR) H 07/05/17 18:30 Urine pH 5.5 (4.6 - 8.0) 07/05/17 18:30 Ur Specific [place] 1.025 (1.005-1.030) 07/05/17 18:30 Urine Protein 30 mg/dL (NEGATIVE) H 07/05/17 18:30 Urine Glucose (UA) NEGATIVE mg/dL (NEGATIVE) 07/05/17 18:30 Urine Ketones TRACE mg/dL (NEGATIVE) 07/05/17 18:30 Urine Blood SMALL (NEGATIVE) H 07/05/17 18:30 Urine Nitrate NEGATIVE (NEGATIVE) 07/05/17 18:30 Urine Bilirubin NEGATIVE (NEGATIVE) 07/05/17 18:30 Urine Urobilinogen 0.2 E.U./dL (0.2 - 1.0) 07/05/17 18:30 Ur Leukocyte Esterase LARGE (NEGATIVE) H 07/05/17 18:30 Urine RBC 2-5 /hpf (0-5) 07/05/17 18:30 Urine WBC >100 /hpf (0-5) H 07/05/17 18:30 Ur Epithelial Cells FEW /lpf (FEW) 07/05/17 18:30 Urine Bacteria FEW /hpf (NONE SEEN) 07/05/17 18:30 Urine Yeast FEW /hpf (NONE SEEN) H 07/05/17 18:30 Stool Occult Blood POSITIVE (NEGATIVE) H 07/11/17 09:30 Vancomycin Trough 11.2 ug/mL (5-10) H 07/09/17 09:24 - Physical Exam Vitals and I&O: Vital Signs Temp 100 F 07/12/17 16:00 Pulse 95 07/12/17 17:46 Resp 18 07/12/17 17:00 BP 127/60 07/12/17 17:00 Pulse Ox 100 07/12/17 17:46 Intake & Output 07/11/17 07/12/17 07/12/17 18:59 06:59 18:59 Intake Total 1600 1801.25 750 Output Total 650 1000 800 Balance 950 801.25 -50 Weight (lbs) 61.235 kg 63.458 kg 63.049 kg Intake: Intake, IV Amount 1000 1201.25 D5-0.45NS 1,000 ml @ 75 1000 951.25 mls/hr IV .[id number] [facility] Rx #:[id number] Vancomycin HCl 1 gm In 250 Sodium Chloride 0.9% 250 ml @ 165 mls/hr IV Q18H [facility] Rx#:[id number] Tube Feeding 600 600 600 Other 150 Output: Urine 650 1000 800 Other: # Bowel Movements 2 3 Stool Characteristics Soft Soft Soft Brown Brown Brown Green Green Weight Source Bedscale Bedscale Bedscale Active Medications: Current Medications Acetaminophen (Tylenol) 650 mg PO Q4H PRN PRN Reason: Fever > 101 Stop: 08/30/17 22:06 Last Admin: 07/11/17 12:17 Dose: 650 mg Albuterol/Ipratropium (Duoneb Neb) 3 ml HHN Q4HRT PRN PRN Reason: Wheezing Stop: 08/30/17 22:13 Albuterol/Ipratropium (Duoneb Neb) 3 ml HHN Q6HRT [facility] Stop: 08/31/17 00:59 Last Admin: 07/12/17 13:52 Dose: 3 ml Ascorbic Acid (Vitamin C) 500 mg PO DAILY [facility] Stop: 08/31/17 08:59 Last Admin: 07/12/17 08:36 Dose: 500 mg Baclofen (Lioresal) 5 mg PO TID [facility] Stop: 09/06/17 08:59 Last Admin: 07/12/17 13:05 Dose: 5 mg Bisacodyl (Dulcolax 10 Mg Supp) 10 mg RC HS PRN PRN Reason: BOWEL CARE MANAGEMENT Stop: 08/30/17 22:18 Budesonide (Pulmicort) 0.5 mg HHN BIDRT [facility] Stop: 08/31/17 18:59 Last Admin: 07/12/17 08:06 Dose: 0.5 mg Chlorhexidine Gluconate (Peridex) 15 ml MM 0800,1999 [facility] Stop: 09/03/17 19:59 Last Admin: 07/12/17 08:35 Dose: 15 ml Cyproheptadine HCl (Periactin) 4 mg PO BID [facility] Stop: 08/31/17 08:59 Last Admin: 07/12/17 16:48 Dose: 4 mg Docusate Sodium (Colace) 100 mg PO BID [facility] Stop: 08/31/17 08:59 Last Admin: 07/12/17 16:48 Dose: 100 mg Ferrous Sulfate (Iron) 325 mg PO BID [facility] Stop: 08/31/17 08:59 Last Admin: 07/12/17 16:48 Dose: 325 mg Folic Acid (Folate) 1 mg PO DAILY [facility] Stop: 08/31/17 08:59 Last Admin: 07/12/17 08:36 Dose: 1 mg Dextrose/Sodium Chloride (D5-0.45ns) 1,000 mls @ 75 mls/hr IV .[id number] [facility] Stop: 09/01/17 11:59 Last Infusion: 07/12/17 05:27 Dose: 75 mls/hr Amiodarone HCl 450 mg/ Sodium (Chloride) 259 mls @ 0 mls/hr IV TITR [facility]ADI; Titrate PRN Reason: Protocol Stop: 09/03/17 16:29 Last Titration: 07/06/17 08:00 Dose: 0 mg/min, 0 mls/hr Norepinephrine Bitartrate 4 mg (/ Sodium Chloride) 254 mls @ 0 mls/hr IV TITR SHADI; Titrate PRN Reason: Protocol Stop: 09/03/17 16:29 Vancomycin HCl 1 gm/ Sodium (Chloride) 250 mls @ 165 mls/hr IV Q18H [facility] Stop: 09/10/17 02:59 Last Infusion: 07/12/17 06:50 Dose: Infused Lactobacillus Rhamnosus (Culturelle 15b) 1 each PO DAILY [facility] Stop: 09/01/17 08:59 Last Admin: 07/12/17 08:36 Dose: 1 each Lactulose (Cephulac) 20 gm PO QID PRN PRN Reason: Constipation Stop: 08/30/17 22:18 Last Admin: 07/08/17 10:11 Dose: 20 gm Lorazepam (Ativan) 1 mg IVP Q4HR PRN; Protocol PRN Reason: Anxiety Stop: 09/04/17 08:31 Last Admin: 07/08/17 21:57 Dose: 1 mg Methylprednisolone Sodium Succinate (Solu-Medrol) 40 mg IVP Q8HR [facility] Stop: 09/09/17 20:59 Last Admin: 07/12/17 13:05 Dose: 40 mg Miscellaneous (Probiotic Screen) 1 ea PRN PRN PRN Reason: PROTOCOL Stop: 09/01/17 08:44 Miscellaneous (Vancomycin Iv Per Pharmacy) 1 ea PRN PRN PRN Reason: PROTOCOL Stop: 09/03/17 11:06 Multivitamins/Vitamin C (Theragran) 1 tab PO DAILY [facility] Stop: 08/31/17 08:59 Last Admin: 07/12/17 08:36 Dose: 1 tab Nicotine (Nicotine Transdermal System) 14 mg TD DAILY [facility] Stop: 09/04/17 08:59 Last Admin: 07/12/17 08:36 Dose: 14 mg Pantoprazole Sodium (Protonix) 40 mg IVP DAILY [facility] Stop: 09/04/17 08:59 Last Admin: 07/12/17 08:36 Dose: 40 mg General: Other (intubated, cachectic appearing, not resposive) HEENT: Atraumatic, Other (no dc) Neck: Supple, no JVD, no Thyromegaly Cardiovascular: Regular rate, Other (in A fib) Lungs: Other (Intubated, has bl rales) Abdomen: Bowel sounds, Soft, no Tender, no Hepatomegaly Extremities: Edema, no Clubbing Neurological: Other (Pt unable to participate in test) Skin: no Rash Psych/Mental Status: Other (no psychosis) - Procedures Procedures: Procedures Procedure Code Date INSERT EMERGENCY AIRWAY 42029 07/01/17 INSERTION OF ENDOTRACHEAL AIRWAY INTO [place]ACHEA, VIA OPENING [id number] 07/01/17 RESPIRATORY VENTILATION, GREATER THAN 96 CONSECUTIVE HOURS [id number] 07/01/17 VENT MGMT INPAT INIT DAY 44960 07/01/17 Assessment/Plan - Problem List Patient Problems: All Active Problems WEAKESS AND POOR ORAL INTAKE (Acute) - Assessment Assessment: * Advanced metastatic cancer * poor functional status * Anemia likely of chronic disease * Respiratory failure s/p intubation 07/05 iron studies cw anemia of chronic disease. continue anticoagulation monitor hgb and transfuse for < 7.5 Nutritional Asmnt/Malnutr-PDOC - Dietary Evaluation Malnutrition Findings (Please click <Entered> for more info): Nutritional Asmnt/Malnutrition Start: 07/03/17 13: 22 Text: Status: Complete Freq: Document 07/03/17 13:22 MMULHERN (Rec: 07/03/17 13:35 [email or web address]) Nutritional Asmnt/Malnutrition Patient General Information Nutritional Screening Consult Diagnosis UTI, Failure to thrive, hypokalemia Pertinent Medical Hx/Surgical Hx CAD, HTN, COPD, Stage 4 lung cancer, peripheral neuropathy, constipation, GERD, anxiety, low back pain Subjective Information Consult received for Failure to Thrive. Current Diet Order/ Nutrition Support Regular diet, pureed with mechaical soft Patient / S.O Not Indicated Pertinent Medications Vitamin C, dulcolax, D5-0.45 NS @ 75 ml/hr, colace, iron, folate, lactulose, theragran Pertinent Labs (07/02) P 1.5, Mg 1.7, albumin 2.9 Nutritional Hx/Data Height 1.6 m Height (Calculated Centimeters) 160.0 Current Weight (lbs) 54.885 kg Weight (Calculated Kilograms) 54.9 Weight (Calculated Grams) 15249.7 [place] Body Weight 115 % [place] Body Weight 105 Body Mass Index (BMI) 21.4 Recent Weight Change No Weight Status Approriate GI Symptoms GI Symptoms None Last BM Prior to admission Difficult in: None Food Allergies No Cultural/Ethnic/[employer] Belief None indicated Skin Integrity/Comment: Pradeep 15 Current %PO Poor (25-49%) Estimated Nutritional Goals BEE in Kcals: Using Current wt Calories/Kcals/Kg 55kg CBW (25-30kcal/kg) Kcals Calculated 6318-9546 kcal/day Protein: Using Current wt Protein g/k-1.2 gm/kg Protein Calculated 55-65 gm/day Fluid: ml 0320-9353 ml/day (1 ml/kcal) Nutritional Problem 2. Problem Problem Inadequate oral intake related to Etiology poor appetite aeb Signs/Symptoms: meeting <75% of estimated nutrient needs 1. Problem Problem Altered nutrition related lab values related to Etiology electrolyte imbalance aeb Signs/Symptoms: P 1.5, Mg 1.7 Intervention/Recommendation Comments 1. Continue pureed diet as tolerated by patient. 2. RN To assist with feedings and encourage oral intake. 3. Consider adding Boost plus between meals to optimize calorie and protein intake. Expected Outcomes/Goals Expected Outcomes/Goals Oral intake to meet >75% of needs, weight stable, nutrition labs WNL F/U MR 07/06-
[2017-07-13] MEDS: Albuterol/Ipratropium Neb 3 ML AERS HHN SCH ×4 (00:26→19:04)
[2017-07-13 05:13] LABS: HEMOGLOBIN 7.9 gm/dL (12-16); MEAN CELL VOLUME 88.3 fl (81-100); MEAN CORPUSCULAR HEMOGLOBIN 29.1 pg (27.0-31.0); MEAN PLATELET VOLUME 7.1 fl; PLATELET COUNT 506 Th/cmm (150-400); RED BLOOD COUNT 2.71 Mil/cmm (3.80-5.20); RED CELL DISTRIBUTION WIDTH 15.5 % (11.5-20.0); WHITE BLOOD COUNT 15.5 Th/cmm (4.8-10.8)
[2017-07-13 05:14] LABS: MANUAL DIFF REQUIRED? YES
[2017-07-13 05:42] LABS: BAND NEUTROPHILE 1 % (0-10); EOSINOPHIL 1 % (0-5); LYMPHOCYTE 5 % (20-50); MONOCYTE 6 % (2-10); NEUTROPHILS 87 % (40-80); TOTAL CELLS COUNTED 100
[2017-07-13] MEDS: methylPREDNISolone SS 40 mg Vial IVP SCH ×3 (05:44→20:47)
--- NOTE | 2017-07-13 07:39 | General Progress Note ---
Subjective - Review of Systems Service Date: 07/13/17 Subjective: Pt seen and eval. In bed. Continues to be intubated. She's awake today. On vent. Seen by jayson, bren, and heme onc, all of whom agree with hospice care. Dr. Montanez discussed poor prog with son. No fevers or chills. WBC elevated. No falls. Pt went into A fib pm 07/04/16, and was transferred to ICU on digoxin. Intubated as of 07/05/17. Was on Amiodarone and Levophed drip, both of which are off as of 07/06/17. Pt is no longer awake. She's unresponsive. She had large bm night of 07/10/17. Objective - Results Result Diagrams: 07/13/17 04:26 07/11/17 04:15 Recent Labs: Laboratory Last Values WBC 15.5 Th/cmm (4.8-10.8) H 07/13/17 04:26 RBC 2.71 Mil/cmm (3.80-5.20) L 07/13/17 04:26 Hgb 7.9 gm/dL (12-16) L* 07/13/17 04:26 Hct 24.0 % (41.0-60) L 07/13/17 04:26 MCV 88.3 fl (81-100) 07/13/17 04:26 MCH 29.1 pg (27.0-31.0) 07/13/17 04:26 MCHC Differential 33.0 pg (28.0-36.0) 07/13/17 04:26 RDW 15.5 % (11.5-20.0) 07/13/17 04:26 Plt Count 506 Th/cmm (150-400) H 07/13/17 04:26 MPV 7.1 fl 07/13/17 04:26 Neutrophils % 95.6 % (40.0-80.0) H 07/12/17 04:20 Band Neutrophils % 1 % (0-10) 07/13/17 04:26 Lymphocytes % 3.1 % (20.0-50.0) L 07/12/17 04:20 Monocytes % 1.1 % (2.0-10.0) L 07/12/17 04:20 Eosinophils % 0.2 % (0.0-5.0) 07/12/17 04:20 Basophils % 0.0 % (0.0-2.0) 07/12/17 04:20 Neutrophils (Manual) 87 % (40-80) H 07/13/17 04:26 Lymphocytes 5 % (20-50) L 07/13/17 04:26 Monocytes 6 % (2-10) 07/13/17 04:26 Eosinophils 1 % (0-5) 07/13/17 04:26 Basophils 0 % (0-3) 07/11/17 04:15 Platelet Estimate ADEQUATE (NORMAL) 07/11/17 04:15 Platelet Morphology NORMAL (NORMAL) 07/11/17 04:15 RBC Morph Micro Appear NORMAL (NORMAL) 07/11/17 04:15 Specimen Source Arterial 07/08/17 11:40 Sample Site LB 07/08/17 11:40 pH 7.45 (7.35-7.45) 07/08/17 11:40 pCO2 30.0 mmHg (35.0-45.0) L 07/08/17 11:40 pO2 128.0 mmHg (80.0-100.0) H 07/08/17 11:40 HCO3 23.3 mEq/L (20.0-26.0) 07/08/17 11:40 Base Excess -2.2 mEq/L (-3.0-3.0) 07/08/17 11:40 O2 Saturation 99.0 % (92.0-100.0) 07/08/17 11:40 Darius Test NA 07/08/17 11:40 Vent Rate 14 07/08/17 11:40 Inspired O2 30 07/08/17 11:40 Tidal Volume 450 07/08/17 11:40 PEEP 5 07/08/17 11:40 Pressure (ins/psv/peep) NA 07/08/17 11:40 Critical Value E.GARCIA 07/08/17 11:40 Sodium 134 mEq/L (136-145) L 07/11/17 04:15 Potassium 3.7 mEq/L (3.5-5.1) 07/11/17 04:15 Chloride 106 mEq/L (98-107) 07/11/17 04:15 Carbon Dioxide 20.8 mEq/L (21.0-31.0) L 07/11/17 04:15 Anion Gap 10.9 (7.0-16.0) 07/11/17 04:15 BUN 23 mg/dL (7-25) 07/11/17 04:15 Creatinine 1.0 mg/dL (0.6-1.2) 07/11/17 04:15 Est GFR ( Amer) TNP 07/11/17 04:15 Est GFR (Non-Af Amer) TNP 07/11/17 04:15 BUN/Creatinine Ratio 23.0 07/11/17 04:15 Glucose 160 mg/dL (70-105) H 07/11/17 04:15 Whole Bld Lactic Acid 3.99 mmol/L (0.60-1.99) H* 07/05/17 13:00 Calcium 7.8 mg/dL (8.6-10.3) L 07/11/17 04:15 Phosphorus 1.5 mg/dL (2.5-5.0) L 07/02/17 05:20 Magnesium 1.7 mg/dL (1.9-2.7) L 07/02/17 05:20 Iron 21 07/03/17 05:48 TIBC 131 07/03/17 05:48 Iron Saturation 16 07/03/17 05:48 Unsaturated IBC 110 07/03/17 05:48 Ferritin 334 ng/mL (15-150) H 07/03/17 05:48 Total Bilirubin 0.5 mg/dL (0.3-1.0) 07/05/17 06:05 AST 16 U/L (13-39) 07/05/17 06:05 ALT 8 U/L (7-52) 07/05/17 06:05 Alkaline Phosphatase 66 U/L (34-104) 07/05/17 06:05 Troponin I 0.09 ng/mL (0.01-0.05) H* D 07/04/17 05:50 B-Natriuretic Peptide 215.0 pg/mL (5.0-100.0) H 07/01/17 14:10 Total Protein 5.6 gm/dL (6.0-8.3) L 07/05/17 06:05 Albumin 2.6 gm/dL (3.7-5.3) L 07/05/17 06:05 Globulin 3.0 gm/dL 07/05/17 06:05 Albumin/Globulin Ratio 0.9 (1.0-1.8) L 07/05/17 06:05 Triglycerides 107 mg/dL (<150) 07/04/17 05:50 Cholesterol 114 mg/dL (<200) 07/04/17 05:50 LDL Cholesterol Direct 59 mg/dL (75-193) L 07/04/17 05:50 HDL Cholesterol 31 mg/dL (23-92) 07/04/17 05:50 TSH 1.46 uIU/ml (0.34-5.60) 07/04/17 05:50 Urine Source CATH 07/05/17 18:30 Urine Color YELLOW 07/05/17 18:30 Urine Clarity CLOUDY (CLEAR) H 07/05/17 18:30 Urine pH 5.5 (4.6 - 8.0) 07/05/17 18:30 Ur Specific [place] 1.025 (1.005-1.030) 07/05/17 18:30 Urine Protein 30 mg/dL (NEGATIVE) H 07/05/17 18:30 Urine Glucose (UA) NEGATIVE mg/dL (NEGATIVE) 07/05/17 18:30 Urine Ketones TRACE mg/dL (NEGATIVE) 07/05/17 18:30 Urine Blood SMALL (NEGATIVE) H 07/05/17 18:30 Urine Nitrate NEGATIVE (NEGATIVE) 07/05/17 18:30 Urine Bilirubin NEGATIVE (NEGATIVE) 07/05/17 18:30 Urine Urobilinogen 0.2 E.U./dL (0.2 - 1.0) 07/05/17 18:30 Ur Leukocyte Esterase LARGE (NEGATIVE) H 07/05/17 18:30 Urine RBC 2-5 /hpf (0-5) 07/05/17 18:30 Urine WBC >100 /hpf (0-5) H 07/05/17 18:30 Ur Epithelial Cells FEW /lpf (FEW) 07/05/17 18:30 Urine Bacteria FEW /hpf (NONE SEEN) 07/05/17 18:30 Urine Yeast FEW /hpf (NONE SEEN) H 07/05/17 18:30 Stool Occult Blood POSITIVE (NEGATIVE) H 07/11/17 09:30 Vancomycin Trough 11.2 ug/mL (5-10) H 07/09/17 09:24 - Physical Exam Vitals and I&O: Vital Signs Temp 98.5 F 07/13/17 05:00 Pulse 86 07/13/17 07:00 Resp 22 07/13/17 07:00 BP 130/63 07/13/17 07:00 Pulse Ox 100 07/13/17 07:00 Intake & Output 07/12/17 07/13/17 07/13/17 18:59 06:59 18:59 Intake Total 750 1212.5 200 Output Total 800 650 Balance -50 1212.5 -450 Weight (lbs) 63.049 kg 63.049 kg Intake: Intake, IV Amount 1212.5 D5-0.45NS 1,000 ml @ 75 962.5 mls/hr IV .[id number] [facility] Rx #:[id number] Vancomycin HCl 1 gm In 250 Sodium Chloride 0.9% 250 ml @ 165 mls/hr IV Q18H [facility] Rx#:[id number] Tube Feeding 600 Other 150 200 Output: Urine 800 650 Other: # Bowel Movements 3 3 Stool Characteristics Soft Soft Brown Brown Green Green Weight Source Bedscale Bedscale Active Medications: Current Medications Acetaminophen (Tylenol) 650 mg PO Q4H PRN PRN Reason: Fever > 101 Stop: 08/30/17 22:06 Last Admin: 07/11/17 12:17 Dose: 650 mg Albuterol/Ipratropium (Duoneb Neb) 3 ml HHN Q4HRT PRN PRN Reason: Wheezing Stop: 08/30/17 22:13 Albuterol/Ipratropium (Duoneb Neb) 3 ml HHN Q6HRT [facility] Stop: 08/31/17 00:59 Last Admin: 07/13/17 00:26 Dose: 3 ml Ascorbic Acid (Vitamin C) 500 mg PO DAILY [facility] Stop: 08/31/17 08:59 Last Admin: 07/12/17 08:36 Dose: 500 mg Baclofen (Lioresal) 5 mg PO TID [facility] Stop: 09/06/17 08:59 Last Admin: 07/12/17 20:52 Dose: 5 mg Bisacodyl (Dulcolax 10 Mg Supp) 10 mg RC HS PRN PRN Reason: BOWEL CARE MANAGEMENT Stop: 08/30/17 22:18 Budesonide (Pulmicort) 0.5 mg HHN BIDRT [facility] Stop: 08/31/17 18:59 Last Admin: 07/12/17 18:39 Dose: 0.5 mg Chlorhexidine Gluconate (Peridex) 15 ml MM 08,1999 [facility] Stop: 09/03/17 19:59 Last Admin: 07/12/17 20:54 Dose: 15 ml Cyproheptadine HCl (Periactin) 4 mg PO BID [facility] Stop: 08/31/17 08:59 Last Admin: 07/12/17 16:48 Dose: 4 mg Docusate Sodium (Colace) 100 mg PO BID [facility]ADI Stop: 08/31/17 08:59 Last Admin: 07/12/17 16:48 Dose: 100 mg Ferrous Sulfate (Iron) 325 mg PO BID [facility]I Stop: 08/31/17 08:59 Last Admin: 07/12/17 16:48 Dose: 325 mg Folic Acid (Folate) 1 mg PO DAILY [facility] Stop: 08/31/17 08:59 Last Admin: 07/12/17 08:36 Dose: 1 mg Dextrose/Sodium Chloride (D5-0.45ns) 1,000 mls @ 75 mls/hr IV .[id number] [facility] Stop: 09/01/17 11:59 Last Infusion: 07/12/17 20:53 Dose: Infused Amiodarone HCl 450 mg/ Sodium (Chloride) 259 mls @ 0 mls/hr IV TITR SHADI; Titrate PRN Reason: Protocol Stop: 09/03/17 16:29 Last Titration: 07/06/17 08:00 Dose: 0 mg/min, 0 mls/hr Norepinephrine Bitartrate 4 mg (/ Sodium Chloride) 254 mls @ 0 mls/hr IV TITR SHADI; Titrate PRN Reason: Protocol Stop: 09/03/17 16:29 Vancomycin HCl 1 gm/ Sodium (Chloride) 250 mls @ 165 mls/hr IV Q18H [facility] Stop: 09/10/17 02:59 Last Infusion: 07/12/17 22:25 Dose: Infused Lactobacillus Rhamnosus (Culturelle 15b) 1 each PO DAILY [facility]ADI Stop: 09/01/17 08:59 Last Admin: 07/12/17 08:36 Dose: 1 each Lactulose (Cephulac) 20 gm PO QID PRN PRN Reason: Constipation Stop: 08/30/17 22:18 Last Admin: 07/08/17 10:11 Dose: 20 gm Lorazepam (Ativan) 1 mg IVP Q4HR PRN; Protocol PRN Reason: Anxiety Stop: 09/04/17 08:31 Last Admin: 07/08/17 21:57 Dose: 1 mg Methylprednisolone Sodium Succinate (Solu-Medrol) 40 mg IVP Q8HR [facility] Stop: 09/09/17 20:59 Last Admin: 07/13/17 05:44 Dose: 40 mg Miscellaneous (Probiotic Screen) 1 ea MC PRN PRN PRN Reason: PROTOCOL Stop: 09/01/17 08:44 Multivitamins/Vitamin C (Theragran) 1 tab PO DAILY SHADI Stop: 08/31/17 08:59 Last Admin: 07/12/17 08:36 Dose: 1 tab Nicotine (Nicotine Transdermal System) 14 mg TD DAILY [facility] Stop: 09/04/17 08:59 Last Admin: 07/12/17 08:36 Dose: 14 mg Pantoprazole Sodium (Protonix) 40 mg IVP DAILY [facility]ADI Stop: 09/04/17 08:59 Last Admin: 07/12/17 08:36 Dose: 40 mg General: Other (intubated, cachectic appearing, not resposive) HEENT: Atraumatic, Other (no dc) Neck: Supple, no JVD, no Thyromegaly Cardiovascular: Regular rate, Other (in A fib) Lungs: Other (Intubated, has bl rales) Abdomen: Bowel sounds, Soft, no Tender, no Hepatomegaly Extremities: Edema, no Clubbing Neurological: Other (Pt unable to participate in test) Skin: no Rash Psych/Mental Status: Other (no psychosis) - Procedures Procedures: Procedures Procedure Code Date INSERT EMERGENCY AIRWAY 09889 07/01/17 INSERTION OF ENDOTRACHEAL AIRWAY INTO TRACHEA, VIA OPENING [id number] 07/01/17 RESPIRATORY VENTILATION, GREATER THAN 96 CONSECUTIVE HOURS [id number] 07/01/17 VENT MGMT INPAT INIT DAY 14305 07/01/17 Assessment/Plan - Problem List Patient Problems: All Active Problems WEAKESS AND POOR ORAL INTAKE (Acute) - Assessment Assessment: Septic shock A fib with RVR Fail to thrive Stage 4 lung ca Sepsis due to E Coli UTI ME Ch pain syn Anemia of ch ill Hypernatremia Hypokalemia Type 2 TX A fib - Plan Plan: Pt holds a poor progonosis. Been trying to communicate poor prognosis to the son. He wants "everything done. " Cardio, Pulm, and Heme Onc seeing pt, all of whom agree with comfort care/ hospice. On IV Zosyn and Vanco. Has been on Amiodarone and Levphed drip in ICU-now off as off 07/06/17. Intubated on 07/05/17. Elec corrected. I's and O's reviewed. Vent settings reviewed. Pt holds a poor prognosis. Son still wants everything done. No drips. Pt responsive. Weaning tried on 07/10/17, but could not tolerate it. Hgb dropping. Holding Xarelto as of 07/11/17. Check stool OB times 2. FU on CBC and Chem 7. Again, advised son of the grave prognosis and the fact that pt has poor quality of life and it will not improve. He still wants "everything done." As of 07/13/17, she's back on vent as she could not tolerate SIMV. She'll likely require tracheostomy and GT as son wants to continue full treatment. Nutritional Asmnt/Malnutr-PDOC - Dietary Evaluation Malnutrition Findings (Please click <Entered> for more info): Nutritional Asmnt/Malnutrition Start: 07/03/17 13: 22 Text: Status: Complete Freq: Document 07/03/17 13:22 MMULJENN (Rec: 07/03/17 13:35 [email or web address] ELLER- [email or web address]) Nutritional Asmnt/Malnutrition Patient General Information Nutritional Screening Consult Diagnosis UTI, Failure to thrive, hypokalemia Pertinent Medical Hx/Surgical Hx CAD, HTN, COPD, Stage 4 lung cancer, peripheral neuropathy, constipation, GERD, anxiety, low back pain Subjective Information Consult received for Failure to Thrive. Current Diet Order/ Nutrition Support Regular diet, pureed with mechaical soft Patient / S.O Not Indicated Pertinent Medications Vitamin C, dulcolax, D5-0.45 NS @ 75 ml/hr, colace, iron, folate, lactulose, theragran Pertinent Labs (07/02) P 1.5, Mg 1.7, albumin 2.9 Nutritional Hx/Data Height 1.6 m Height (Calculated Centimeters) 160.0 Current Weight (lbs) 54.885 kg Weight (Calculated Kilograms) 54.9 Weight (Calculated Grams) 30183.7 [place] Body Weight 115 % [place] Body Weight 105 Body Mass Index (BMI) 21.4 Recent Weight Change No Weight Status Approriate GI Symptoms GI Symptoms None Last BM Prior to admission Difficult in: None Food Allergies No Cultural/Ethnic/Denominational Belief None indicated Skin Integrity/Comment: Pradeep Cook Current %PO Poor (25-49%) Estimated Nutritional Goals BEE in Kcals: Using Current wt Calories/Kcals/Kg 55kg CBW (25-30kcal/kg) Kcals Calculated 7867-7310 kcal/day Protein: Using Current wt Protein g/k-1.2 gm/kg Protein Calculated 55-65 gm/day Fluid: ml 7919-0706 ml/day (1 ml/kcal) Nutritional Problem 2. Problem Problem Inadequate oral intake related to Etiology poor appetite aeb Signs/Symptoms: meeting <75% of estimated nutrient needs 1. Problem Problem Altered nutrition related lab values related to Etiology electrolyte imbalance aeb Signs/Symptoms: P 1.5, Mg 1.7 Intervention/Recommendation Comments 1. Continue pureed diet as tolerated by patient. 2. RN To assist with feedings and encourage oral intake. 3. Consider adding Boost plus between meals to optimize calorie and protein intake. Expected Outcomes/Goals Expected Outcomes/Goals Oral intake to meet >75% of needs, weight stable, nutrition labs WNL F/U MR 07/06-
[2017-07-13] MEDS: Budesonide 0.5 Mg/2 mL Ud HHN SCH ×2 (07:51→19:05)
[2017-07-13 07:59] LABS: ANION GAP 12.9 (7.0-16.0); BUN - UREA NITROGEN 35 mg/dL (7-25); CALCIUM SERUM 7.8 mg/dL (8.6-10.3); CARBON DIOXIDE 18.5 mEq/L (21.0-31.0); CHLORIDE 106 mEq/L (98-107); CREATININE - SERUM 1.2 mg/dL (0.6-1.2); GLUCOSE 176 mg/dL (70-105); POTASSIUM SERUM 4.4 mEq/L (3.5-5.1); SODIUM SERUM 133 mEq/L (136-145)
[2017-07-13] MEDS: Chlorhexidine Gluconate 0.12% 15mL Mouthwash MM SCH ×2 (08:40→20:02)
--- NOTE | 2017-07-13 08:45 | Infectious Disease Prog Note ---
Infectious Disease Subjective - Review of Systems Service Date: 07/13/17 Subjective: There is no new change. Patient remains intubated orally, on the ventilator support. Infectious Disease Objective - Results Result Diagrams: 07/13/17 04:07/13/17 04:26 Recent Labs: Laboratory Last Values WBC 15.5 Th/cmm (4.8-10.8) H 07/13/17 04:26 RBC 2.71 Mil/cmm (3.80-5.20) L 07/13/17 04:26 Hgb 7.9 gm/dL (12-16) L* 07/13/17 04: Hct 24.0 % (41.0-60) L 07/13/17 04: MCV 88.3 fl (81-100) 07/13/17 04: MCH 29.1 pg (27.0-31.0) 07/13/17 04: MCHC Differential 33.0 pg (28.0-36.0) 07/13/17 04: RDW 15.5 % (11.5-20.0) 07/13/17 04: Plt Count 506 Th/cmm (150-400) H 07/13/17 04: MPV 7.1 fl 07/13/17 04: Neutrophils % 95.6 % (40.0-80.0) H 07/12/17 04:20 Band Neutrophils % 1 % (0-10) 07/13/17 04:26 Lymphocytes % 3.1 % (20.0-50.0) L 07/12/17 04:20 Monocytes % 1.1 % (2.0-10.0) L 07/12/17 04:20 Eosinophils % 0.2 % (0.0-5.0) 07/12/17 04:20 Basophils % 0.0 % (0.0-2.0) 07/12/17 04:20 Neutrophils (Manual) 87 % (40-80) H 07/13/17 04:26 Lymphocytes 5 % (20-50) L 07/13/17 04:26 Monocytes 6 % (2-10) 07/13/17 04:26 Eosinophils 1 % (0-5) 07/13/17 04:26 Basophils 0 % (0-3) 07/11/17 04:15 Platelet Estimate ADEQUATE (NORMAL) 07/11/17 04:15 Platelet Morphology NORMAL (NORMAL) 07/11/17 04:15 RBC Morph Micro Appear NORMAL (NORMAL) 07/11/17 04:15 Specimen Source Arterial 07/08/17 11:40 Sample Site LB 07/08/17 11:40 pH 7.45 (7.35-7.45) 07/08/17 11:40 pCO2 30.0 mmHg (35.0-45.0) L 07/08/17 11:40 pO2 128.0 mmHg (80.0-100.0) H 07/08/17 11:40 HCO3 23.3 mEq/L (20.0-26.0) 07/08/17 11:40 Base Excess -2.2 mEq/L (-3.0-3.0) 07/08/17 11:40 O2 Saturation 99.0 % (92.0-100.0) 07/08/17 11:40 Darius Test NA 07/08/17 11:40 Vent Rate 14 07/08/17 11:40 Inspired O2 30 07/08/17 11:40 Tidal Volume 450 07/08/17 11:40 PEEP 5 07/08/17 11:40 Pressure (ins/psv/peep) NA 07/08/17 11:40 Critical Value E.GARCIA 07/08/17 11:40 Sodium 133 mEq/L (136-145) L 07/13/17 04:26 Potassium 4.4 mEq/L (3.5-5.1) 07/13/17 04:26 Chloride 106 mEq/L (98-107) 07/13/17 04:26 Carbon Dioxide 18.5 mEq/L (21.0-31.0) L 07/13/17 04:26 Anion Gap 12.9 (7.0-16.0) 07/13/17 04:26 BUN 35 mg/dL (7-25) H 07/13/17 04:26 Creatinine 1.2 mg/dL (0.6-1.2) 07/13/17 04:26 Est GFR ( Amer) TNP 07/13/17 04:26 Est GFR (Non-Af Amer) TNP 07/13/17 04:26 BUN/Creatinine Ratio 29.2 07/13/17 04:26 Glucose 176 mg/dL (70-105) H 07/13/17 04:26 Whole Bld Lactic Acid 3.99 mmol/L (0.60-1.99) H* 07/05/17 13:00 Calcium 7.8 mg/dL (8.6-10.3) L 07/13/17 04:26 Phosphorus 1.5 mg/dL (2.5-5.0) L 07/02/17 05:20 Magnesium 1.7 mg/dL (1.9-2.7) L 07/02/17 05:20 Iron 21 07/03/17 05:48 TIBC 131 07/03/17 05:48 Iron Saturation 16 07/03/17 05:48 Unsaturated IBC 110 07/03/17 05:48 Ferritin 334 ng/mL (15-150) H 07/03/17 05:48 Total Bilirubin 0.5 mg/dL (0.3-1.0) 07/05/17 06:05 AST 16 U/L (13-39) 07/05/17 06:05 ALT 8 U/L (7-52) 07/05/17 06:05 Alkaline Phosphatase 66 U/L (34-104) 07/05/17 06:05 Troponin I 0.09 ng/mL (0.01-0.05) H* D 07/04/17 05:50 B-Natriuretic Peptide 215.0 pg/mL (5.0-100.0) H 07/01/17 14:10 Total Protein 5.6 gm/dL (6.0-8.3) L 07/05/17 06:05 Albumin 2.6 gm/dL (3.7-5.3) L 07/05/17 06:05 Globulin 3.0 gm/dL 07/05/17 06:05 Albumin/Globulin Ratio 0.9 (1.0-1.8) L 07/05/17 06:05 Triglycerides 107 mg/dL (<150) 07/04/17 05:50 Cholesterol 114 mg/dL (<200) 07/04/17 05:50 LDL Cholesterol Direct 59 mg/dL (75-193) L 07/04/17 05:50 HDL Cholesterol 31 mg/dL (23-92) 07/04/17 05:50 TSH 1.46 uIU/ml (0.34-5.60) 07/04/17 05:50 Urine Source CATH 07/05/17 18:30 Urine Color YELLOW 07/05/17 18:30 Urine Clarity CLOUDY (CLEAR) H 07/05/17 18:30 Urine pH 5.5 (4.6 - 8.0) 07/05/17 18:30 Ur Specific [place] 1.025 (1.005-1.030) 07/05/17 18:30 Urine Protein 30 mg/dL (NEGATIVE) H 07/05/17 18:30 Urine Glucose (UA) NEGATIVE mg/dL (NEGATIVE) 07/05/17 18:30 Urine Ketones TRACE mg/dL (NEGATIVE) 07/05/17 18:30 Urine Blood SMALL (NEGATIVE) H 07/05/17 18:30 Urine Nitrate NEGATIVE (NEGATIVE) 07/05/17 18:30 Urine Bilirubin NEGATIVE (NEGATIVE) 07/05/17 18:30 Urine Urobilinogen 0.2 E.U./dL (0.2 - 1.0) 07/05/17 18:30 Ur Leukocyte Esterase LARGE (NEGATIVE) H 07/05/17 18:30 Urine RBC 2-5 /hpf (0-5) 07/05/17 18:30 Urine WBC >100 /hpf (0-5) H 07/05/17 18:30 Ur Epithelial Cells FEW /lpf (FEW) 07/05/17 18:30 Urine Bacteria FEW /hpf (NONE SEEN) 07/05/17 18:30 Urine Yeast FEW /hpf (NONE SEEN) H 07/05/17 18:30 Stool Occult Blood POSITIVE (NEGATIVE) H 07/11/17 09:30 Vancomycin Trough 11.2 ug/mL (5-10) H 07/09/17 09:24 - Physical Exam Vitals and I&O: Vital Signs Temp 98.5 F 07/13/17 05:00 Pulse 86 07/13/17 07:53 Resp 22 07/13/17 07:00 BP 130/63 07/13/17 07:00 Pulse Ox 100 07/13/17 07:53 Intake & Output 07/12/17 07/13/17 07/13/17 18:59 06:59 18:59 Intake Total 750 1212.5 200 Output Total 800 650 Balance -50 1212.5 -450 Weight (lbs) 63.049 kg 63.049 kg Intake: Intake, IV Amount 1212.5 D5-0.45NS 1,000 ml @ 75 962.5 mls/hr IV .[id number] [facility] Rx #:[id number] Vancomycin HCl 1 gm In 250 Sodium Chloride 0.9% 250 ml @ 165 mls/hr IV Q18H [facility] Rx#:[id number] Tube Feeding 600 Other 150 200 Output: Urine 800 650 Other: # Bowel Movements 3 3 Stool Characteristics Soft Soft Brown Brown Green Green Weight Source Bedscale Bedscale Active Medications: Current Medications Acetaminophen (Tylenol) 650 mg PO Q4H PRN PRN Reason: Fever > 101 Stop: 08/30/17 22:06 Last Admin: 07/11/17 12:17 Dose: 650 mg Albuterol/Ipratropium (Duoneb Neb) 3 ml HHN Q4HRT PRN PRN Reason: Wheezing Stop: 08/30/17 22:13 Albuterol/Ipratropium (Duoneb Neb) 3 ml HHN Q6HRT [facility] Stop: 08/31/17 00:59 Last Admin: 07/13/17 07:52 Dose: 3 ml Ascorbic Acid (Vitamin C) 500 mg PO DAILY [facility] Stop: 08/31/17 08:59 Last Admin: 07/12/17 08:36 Dose: 500 mg Baclofen (Lioresal) 5 mg PO TID [facility] Stop: 09/06/17 08:59 Last Admin: 07/12/17 20:52 Dose: 5 mg Bisacodyl (Dulcolax 10 Mg Supp) 10 mg RC HS PRN PRN Reason: BOWEL CARE MANAGEMENT Stop: 08/30/17 22:18 Budesonide (Pulmicort) 0.5 mg HHN BIDRT [facility] Stop: 08/31/17 18:59 Last Admin: 07/13/17 07:51 Dose: 0.5 mg Chlorhexidine Gluconate (Peridex) 15 ml MM 0800,1999 [facility] Stop: 09/03/17 19:59 Last Admin: 07/12/17 20:54 Dose: 15 ml Cyproheptadine HCl (Periactin) 4 mg PO BID [facility] Stop: 08/31/17 08:59 Last Admin: 07/12/17 16:48 Dose: 4 mg Docusate Sodium (Colace) 100 mg PO BID [facility] Stop: 08/31/17 08:59 Last Admin: 07/12/17 16:48 Dose: 100 mg Ferrous Sulfate (Iron) 325 mg PO BID [facility] Stop: 08/31/17 08:59 Last Admin: 07/12/17 16:48 Dose: 325 mg Folic Acid (Folate) 1 mg PO DAILY [facility] Stop: 08/31/17 08:59 Last Admin: 07/12/17 08:36 Dose: 1 mg Dextrose/Sodium Chloride (D5-0.45ns) 1,000 mls @ 75 mls/hr IV .[id number] [facility] Stop: 09/01/17 11:59 Last Infusion: 07/12/17 20:53 Dose: Infused Amiodarone HCl 450 mg/ Sodium (Chloride) 259 mls @ 0 mls/hr IV TITR [facility]; Titrate PRN Reason: Protocol Stop: 09/03/17 16:29 Last Titration: 07/06/17 08:00 Dose: 0 mg/min, 0 mls/hr Norepinephrine Bitartrate 4 mg (/ Sodium Chloride) 254 mls @ 0 mls/hr IV TITR [facility]; Titrate PRN Reason: Protocol Stop: 09/03/17 16:29 Vancomycin HCl 1 gm/ Sodium (Chloride) 250 mls @ 165 mls/hr IV Q18H [facility] Stop: 09/10/17 02:59 Last Infusion: 07/12/17 22:25 Dose: Infused Lactobacillus Rhamnosus (Culturelle 15b) 1 each PO DAILY [facility] Stop: 09/01/17 08:59 Last Admin: 07/12/17 08:36 Dose: 1 each Lactulose (Cephulac) 20 gm PO QID PRN PRN Reason: Constipation Stop: 08/30/17 22:18 Last Admin: 07/08/17 10:11 Dose: 20 gm Lorazepam (Ativan) 1 mg IVP Q4HR PRN; Protocol PRN Reason: Anxiety Stop: 09/04/17 08:31 Last Admin: 07/08/17 21:57 Dose: 1 mg Methylprednisolone Sodium Succinate (Solu-Medrol) 40 mg IVP Q8HR [facility] Stop: 09/09/17 20:59 Last Admin: 07/13/17 05:44 Dose: 40 mg Miscellaneous (Probiotic Screen) 1 ea MC PRN PRN PRN Reason: PROTOCOL Stop: 09/01/17 08:44 Multivitamins/Vitamin C (Theragran) 1 tab PO DAILY [facility] Stop: 08/31/17 08:59 Last Admin: 07/12/17 08:36 Dose: 1 tab Nicotine (Nicotine Transdermal System) 14 mg TD DAILY [facility] Stop: 09/04/17 08:59 Last Admin: 07/12/17 08:36 Dose: 14 mg Pantoprazole Sodium (Protonix) 40 mg IVP DAILY [facility] Stop: 09/04/17 08:59 Last Admin: 07/12/17 08:36 Dose: 40 mg General: well developed, cachectic HEENT: atraumatic, normocephalic, PERRLA, EOMI Neck: supple, no thyromegaly, no lymphadenopathy, no rigid Cardiovascular: S1S2, regular Lungs: clear to percussion, crackles, wheeze Abdomen: soft, no tender, no distended, no rebound Extremities: no cyanosis, no clubbing, no edema Neurological: other (confused.) - Procedures Procedures: Procedures Procedure Code Date INSERT EMERGENCY AIRWAY 70186 07/01/17 INSERTION OF ENDOTRACHEAL AIRWAY INTO TRACHEA, VIA OPENING [id number] 07/01/17 RESPIRATORY VENTILATION, GREATER THAN 96 CONSECUTIVE HOURS [id number] 07/01/17 VENT MGMT INPAT INIT DAY [id number] 07/01/17 Infectious Disease Assmt/Plan - Problem List Patient Problems: All Active Problems WEAKESS AND POOR ORAL INTAKE (Acute) - Assessment Assessment: 1. Leukocytosis. Fever, sepsis. 2. Pneumonia. 3. Stage IV lung CA. 4. Protein calorie malnutrion, 5. VDRF. 6. ALTERED MENTAL STATUS. - Plan Plan: DC vancomycin IV. Nutritional Asmnt/Malnutr-PDOC - Dietary Evaluation Malnutrition Findings (Please click <Entered> for more info): Nutritional Asmnt/Malnutrition Start: 07/03/17 13: 22 Text: Status: Complete Freq: Document 07/03/17 13:22 URBAN (Rec: 07/03/17 13:35 URBAN CRISTOBAL) Nutritional Asmnt/Malnutrition Patient General Information Nutritional Screening Consult Diagnosis UTI, Failure to thrive, hypokalemia Pertinent Medical Hx/Surgical Hx CAD, HTN, COPD, Stage 4 lung cancer, peripheral neuropathy, constipation, GERD, anxiety, low back pain Subjective Information Consult received for Failure to Thrive. Current Diet Order/ Nutrition Support Regular diet, pureed with mechaical soft Patient / S.O Not Indicated Pertinent Medications Vitamin C, dulcolax, D5-0.45 NS @ 75 ml/hr, colace, iron, folate, lactulose, theragran Pertinent Labs (07/02) P 1.5, Mg 1.7, albumin 2.9 Nutritional Hx/Data Height 1.6 m Height (Calculated Centimeters) 160.0 Current Weight (lbs) 54.885 kg Weight (Calculated Kilograms) 54.9 Weight (Calculated Grams) 86139.7 [place] Body Weight 115 % [place] Body Weight 105 Body Mass Index (BMI) 21.4 Recent Weight Change No Weight Status Approriate GI Symptoms GI Symptoms None Last BM Prior to admission Difficult in: None Food Allergies No Cultural/Ethnic/Quaker Belief None indicated Skin Integrity/Comment: Pradeep 15 Current %PO Poor (25-49%) Estimated Nutritional Goals BEE in Kcals: Using Current wt Calories/Kcals/Kg 55kg CBW (25-30kcal/kg) Kcals Calculated 7099-5638 kcal/day Protein: Using Current wt Protein g/k-1.2 gm/kg Protein Calculated 55-65 gm/day Fluid: ml 7690-0334 ml/day (1 ml/kcal) Nutritional Problem 2. Problem Problem Inadequate oral intake related to Etiology poor appetite aeb Signs/Symptoms: meeting <75% of estimated nutrient needs 1. Problem Problem Altered nutrition related lab values related to Etiology electrolyte imbalance aeb Signs/Symptoms: P 1.5, Mg 1.7 Intervention/Recommendation Comments 1. Continue pureed diet as tolerated by patient. 2. RN To assist with feedings and encourage oral intake. 3. Consider adding Boost plus between meals to optimize calorie and protein intake. Expected Outcomes/Goals Expected Outcomes/Goals Oral intake to meet >75% of needs, weight stable, nutrition labs WNL F/U MR 07/06-
[2017-07-13] MEDS: Nicotine 14 mg/24 hr Tdm TD SCH (09:00)
[2017-07-13] MEDS: Lactobacillus Rhamnosus GG 15 Billion CFU CAP.SPRINK PO SCH (09:57)
[2017-07-13] MEDS: Cyproheptadine 4 mg Tab PO SCH ×2 (09:57→16:46)
[2017-07-13] MEDS: Multivitamin Tab PO SCH (09:58)
[2017-07-13] MEDS: Ferrous Sulfate 325 MG TAB PO SCH ×2 (09:58→16:46)
--- NOTE | 2017-07-13 10:49 | Cardiology ---
07/04/2017 ECHOCARDIOGRAM REPORT A patient of Dr. Familia Landry. M-MODE ECHOCARDIOGRAM: Mitral valve, anterior leaflet of mitral valve shows normal excursion, EF velocity. Posterior leaflet of the mitral valve shows normal excursion. Left ventricular posterior wall shows increased thickness, normal excursion. Interventricular septum shows increased thickness, normal excursion, hypertrophy of the left ventricle, ejection fraction 55%. Left atrium is normal. Aortic root shows normal dimension, normal excursion of aortic leaflets. CONCLUSION: Hypertrophy of the left ventricle, ejection fraction 55%. 2D ECHO: Long axis view showed normal sized left ventricle with hypertrophy of the left ventricle. Left atrium is normal. Aortic root shows normal dimension, normal excursion of aortic leaflets. Short axis view of mitral valve is normal. Short axis view of aortic valve is normal. Apical four chamber view showed normal sized left ventricle with hypertrophy of the left ventricle. Left atrium is normal. Right ventricular cavity and right atrium is normal. No pericardial effusion. CONCLUSION: Hypertrophy of the left ventricle, ejection fraction 55%. Doppler study shows mild mitral regurgitation, mild tricuspid regurgitation. [facility]# [id number]
--- NOTE | 2017-07-13 11:37 | General Progress Note ---
Subjective - Review of Systems Service Date: 07/13/17 Subjective: unresponsive, opens eyes Objective - Results Result Diagrams: 07/13/17 04:26 07/13/17 04:26 Recent Labs: Laboratory Last Values WBC 15.5 Th/cmm (4.8-10.8) H 07/13/17 04:26 RBC 2.71 Mil/cmm (3.80-5.20) L 07/13/17 04:26 Hgb 7.9 gm/dL (12-16) L* 07/13/17 04: Hct 24.0 % (41.0-60) L 07/13/17 04: MCV 88.3 fl (81-100) 07/13/17 04: MCH 29.1 pg (27.0-31.0) 07/13/17 04: MCHC Differential 33.0 pg (28.0-36.0) 07/13/17 04: RDW 15.5 % (11.5-20.0) 07/13/17 04: Plt Count 506 Th/cmm (150-400) H 07/13/17 04:26 MPV 7.1 fl 07/13/17 04: Neutrophils % 95.6 % (40.0-80.0) H 07/12/17 04:20 Band Neutrophils % 1 % (0-10) 07/13/17 04:26 Lymphocytes % 3.1 % (20.0-50.0) L 07/12/17 04:20 Monocytes % 1.1 % (2.0-10.0) L 07/12/17 04:20 Eosinophils % 0.2 % (0.0-5.0) 07/12/17 04:20 Basophils % 0.0 % (0.0-2.0) 07/12/17 04:20 Neutrophils (Manual) 87 % (40-80) H 07/13/17 04: Lymphocytes 5 % (20-50) L 07/13/17 04:26 Monocytes 6 % (2-10) 07/13/17 04:26 Eosinophils 1 % (0-5) 07/13/17 04:26 Basophils 0 % (0-3) 07/11/17 04:15 Platelet Estimate ADEQUATE (NORMAL) 07/11/17 04:15 Platelet Morphology NORMAL (NORMAL) 07/11/17 04:15 RBC Morph Micro Appear NORMAL (NORMAL) 07/11/17 04:15 Specimen Source Arterial 07/08/17 11:40 Sample Site LB 07/08/17 11:40 pH 7.45 (7.35-7.45) 07/08/17 11:40 pCO2 30.0 mmHg (35.0-45.0) L 07/08/17 11:40 pO2 128.0 mmHg (80.0-100.0) H 07/08/17 11:40 HCO3 23.3 mEq/L (20.0-26.0) 07/08/17 11:40 Base Excess -2.2 mEq/L (-3.0-3.0) 07/08/17 11:40 O2 Saturation 99.0 % (92.0-100.0) 07/08/17 11:40 Darius Test NA 07/08/17 11:40 Vent Rate 14 07/08/17 11:40 Inspired O2 30 07/08/17 11:40 Tidal Volume 450 07/08/17 11:40 PEEP 5 07/08/17 11:40 Pressure (ins/psv/peep) NA 07/08/17 11:40 Critical Value E.GARCIA 07/08/17 11:40 Sodium 133 mEq/L (136-145) L 07/13/17 04:26 Potassium 4.4 mEq/L (3.5-5.1) 07/13/17 04:26 Chloride 106 mEq/L (98-107) 07/13/17 04:26 Carbon Dioxide 18.5 mEq/L (21.0-31.0) L 07/13/17 04:26 Anion Gap 12.9 (7.0-16.0) 07/13/17 04:26 BUN 35 mg/dL (7-25) H 07/13/17 04:26 Creatinine 1.2 mg/dL (0.6-1.2) 07/13/17 04:26 Est GFR ( Amer) TNP 07/13/17 04:26 Est GFR (Non-Af Amer) TNP 07/13/17 04:26 BUN/Creatinine Ratio 29.2 07/13/17 04:26 Glucose 176 mg/dL (70-105) H 07/13/17 04:26 Whole Bld Lactic Acid 3.99 mmol/L (0.60-1.99) H* 07/05/17 13:00 Calcium 7.8 mg/dL (8.6-10.3) L 07/13/17 04:26 Phosphorus 1.5 mg/dL (2.5-5.0) L 07/02/17 05:20 Magnesium 1.7 mg/dL (1.9-2.7) L 07/02/17 05:20 Iron 21 07/03/17 05:48 TIBC 131 07/03/17 05:48 Iron Saturation 16 07/03/17 05:48 Unsaturated IBC 110 07/03/17 05:48 Ferritin 334 ng/mL (15-150) H 07/03/17 05:48 Total Bilirubin 0.5 mg/dL (0.3-1.0) 07/05/17 06:05 AST 16 U/L (13-39) 07/05/17 06:05 ALT 8 U/L (7-52) 07/05/17 06:05 Alkaline Phosphatase 66 U/L (34-104) 07/05/17 06:05 Troponin I 0.09 ng/mL (0.01-0.05) H* D 07/04/17 05:50 B-Natriuretic Peptide 215.0 pg/mL (5.0-100.0) H 07/01/17 14:10 Total Protein 5.6 gm/dL (6.0-8.3) L 07/05/17 06:05 Albumin 2.6 gm/dL (3.7-5.3) L 07/05/17 06:05 Globulin 3.0 gm/dL 07/05/17 06:05 Albumin/Globulin Ratio 0.9 (1.0-1.8) L 07/05/17 06:05 Triglycerides 107 mg/dL (<150) 07/04/17 05:50 Cholesterol 114 mg/dL (<200) 07/04/17 05:50 LDL Cholesterol Direct 59 mg/dL (75-193) L 07/04/17 05:50 HDL Cholesterol 31 mg/dL (23-92) 07/04/17 05:50 TSH 1.46 uIU/ml (0.34-5.60) 07/04/17 05:50 Urine Source CATH 07/05/17 18:30 Urine Color YELLOW 04/17/18 18:30 Urine Clarity CLOUDY (CLEAR) H 07/05/17 18:30 Urine pH 5.5 (4.6 - 8.0) 07/05/17 18:30 Ur Specific Mondamin 1.025 (1.005-1.030) 07/05/17 18:30 Urine Protein 30 mg/dL (NEGATIVE) H 07/05/17 18:30 Urine Glucose (UA) NEGATIVE mg/dL (NEGATIVE) 07/05/17 18:30 Urine Ketones TRACE mg/dL (NEGATIVE) 07/05/17 18:30 Urine Blood SMALL (NEGATIVE) H 07/05/17 18:30 Urine Nitrate NEGATIVE (NEGATIVE) 07/05/17 18:30 Urine Bilirubin NEGATIVE (NEGATIVE) 07/05/17 18:30 Urine Urobilinogen 0.2 E.U./dL (0.2 - 1.0) 07/05/17 18:30 Ur Leukocyte Esterase LARGE (NEGATIVE) H 07/05/17 18:30 Urine RBC 2-5 /hpf (0-5) 07/05/17 18:30 Urine WBC >100 /hpf (0-5) H 07/05/17 18:30 Ur Epithelial Cells FEW /lpf (FEW) 07/05/17 18:30 Urine Bacteria FEW /hpf (NONE SEEN) 07/05/17 18:30 Urine Yeast FEW /hpf (NONE SEEN) H 07/05/17 18:30 Stool Occult Blood POSITIVE (NEGATIVE) H 07/11/17 09:30 Vancomycin Trough 11.2 ug/mL (5-10) H 07/09/17 09:24 - Physical Exam Vitals and I&O: Vital Signs Temp 98.5 F 07/13/17 05:00 Pulse 89 07/13/17 11:31 Resp 22 07/13/17 07:00 BP 130/63 07/13/17 07:00 Pulse Ox 100 07/13/17 11:31 Intake & Output 07/12/17 07/13/17 07/13/17 18:59 06:59 18:59 Intake Total 750 1212.5 200 Output Total 800 650 Balance -50 1212.5 -450 Weight (lbs) 63.049 kg 63.049 kg Intake: Intake, IV Amount 1212.5 D5-0.45NS 1,000 ml @ 75 962.5 mls/hr IV .[id number] [facility] Rx #:[id number] Vancomycin HCl 1 gm In 250 Sodium Chloride 0.9% 250 ml @ 165 mls/hr IV Q18H [facility] Rx#:[id number] Tube Feeding 600 Other 150 200 Output: Urine 800 650 Other: # Bowel Movements 3 3 Stool Characteristics Soft Soft Brown Brown Green Green Weight Source Bedscale Bedscale Active Medications: Current Medications Acetaminophen (Tylenol) 650 mg PO Q4H PRN PRN Reason: Fever > 101 Stop: 08/30/17 22:06 Last Admin: 07/11/17 12:17 Dose: 650 mg Albuterol/Ipratropium (Duoneb Neb) 3 ml HHN Q4HRT PRN PRN Reason: Wheezing Stop: 08/30/17 22:13 Albuterol/Ipratropium (Duoneb Neb) 3 ml HHN Q6HRT [facility] Stop: 08/31/17 00:59 Last Admin: 07/13/17 07:52 Dose: 3 ml Ascorbic Acid (Vitamin C) 500 mg PO DAILY [facility] Stop: 08/31/17 08:59 Last Admin: 07/13/17 09:57 Dose: 500 mg Baclofen (Lioresal) 5 mg PO TID [facility] Stop: 09/06/17 08:59 Last Admin: 07/13/17 09:57 Dose: 5 mg Bisacodyl (Dulcolax 10 Mg Supp) 10 mg RC HS PRN PRN Reason: BOWEL CARE MANAGEMENT Stop: 08/30/17 22:18 Budesonide (Pulmicort) 0.5 mg HHN BIDRT [facility] Stop: 08/31/17 18:59 Last Admin: 07/13/17 07:51 Dose: 0.5 mg Chlorhexidine Gluconate (Peridex) 15 ml MM 0800,2000 [facility] Stop: 09/03/17 19:59 Last Admin: 07/13/17 08:40 Dose: 15 ml Cyproheptadine HCl (Periactin) 4 mg PO BID [facility] Stop: 08/31/17 08:59 Last Admin: 07/13/17 09:57 Dose: 4 mg Docusate Sodium (Colace) 100 mg PO BID [facility] Stop: 08/31/17 08:59 Last Admin: 07/13/17 09:58 Dose: Not Given Ferrous Sulfate (Iron) 325 mg PO BID [facility] Stop: 08/31/17 08:59 Last Admin: 07/13/17 09:58 Dose: 325 mg Folic Acid (Folate) 1 mg PO DAILY [facility] Stop: 08/31/17 08:59 Last Admin: 07/13/17 09:58 Dose: 1 mg Dextrose/Sodium Chloride (D5-0.45ns) 1,000 mls @ 75 mls/hr IV .[id number] [facility] Stop: 09/01/17 11:59 Last Infusion: 07/12/17 20:53 Dose: Infused Amiodarone HCl 450 mg/ Sodium (Chloride) 259 mls @ 0 mls/hr IV TITR [facility]; Titrate PRN Reason: Protocol Stop: 09/03/17 16:29 Last Titration: 07/06/17 08:00 Dose: 0 mg/min, 0 mls/hr Norepinephrine Bitartrate 4 mg (/ Sodium Chloride) 254 mls @ 0 mls/hr IV TITR [facility]; Titrate PRN Reason: Protocol Stop: 09/03/17 16:29 Lactobacillus Rhamnosus (Culturelle 15b) 1 each PO DAILY [facility] Stop: 09/01/17 08:59 Last Admin: 07/13/17 09:57 Dose: 1 each Lactulose (Cephulac) 20 gm PO QID PRN PRN Reason: Constipation Stop: 08/30/17 22:18 Last Admin: 07/08/17 10:11 Dose: 20 gm Lorazepam (Ativan) 1 mg IVP Q4HR PRN; Protocol PRN Reason: Anxiety Stop: 09/04/17 08:31 Last Admin: 07/08/17 21:57 Dose: 1 mg Methylprednisolone Sodium Succinate (Solu-Medrol) 40 mg IVP Q8HR [facility] Stop: 09/09/17 20:59 Last Admin: 07/13/17 05:44 Dose: 40 mg Miscellaneous (Probiotic Screen) 1 ea MC PRN PRN PRN Reason: PROTOCOL Stop: 09/01/17 08:44 Multivitamins/Vitamin C (Theragran) 1 tab PO DAILY [facility] Stop: 08/31/17 08:59 Last Admin: 07/13/17 09:58 Dose: 1 tab Nicotine (Nicotine Transdermal System) 14 mg TD DAILY [facility] Stop: 09/04/17 08:59 Last Admin: 07/13/17 09:00 Dose: 14 mg Pantoprazole Sodium (Protonix) 40 mg IVP DAILY [facility] Stop: 09/04/17 08:59 Last Admin: 07/13/17 09:57 Dose: 40 mg General: Other (intubated, cachectic appearing, not resposive) HEENT: Atraumatic, Other (no dc) Neck: Supple, no JVD, no Thyromegaly Cardiovascular: Regular rate, Other (in A fib) Lungs: Other (Intubated, has bl rales) Abdomen: Bowel sounds, Soft, no Tender, no Hepatomegaly Extremities: Edema, no Clubbing Neurological: Other (Pt unable to participate in test) Skin: no Rash Psych/Mental Status: Other (no psychosis) - Procedures Procedures: Procedures Procedure Code Date INSERT EMERGENCY AIRWAY [id number] 07/01/17 INSERTION OF ENDOTRACHEAL AIRWAY INTO TRACHEA, VIA OPENING [id number] 07/01/17 RESPIRATORY VENTILATION, GREATER THAN 96 CONSECUTIVE HOURS [id number] 07/01/[place] [id number] 07/01/17 Assessment/Plan - Problem List Patient Problems: All Active Problems WEAKESS AND POOR ORAL INTAKE (Acute) - Assessment Assessment: * Advanced metastatic cancer * poor functional status * Anemia likely of chronic disease * Respiratory failure s/p intubation 07/05 iron studies cw anemia of chronic disease. continue anticoagulation hgb 7.9 today no transfusion monitor hgb and transfuse for < 7.5 Nutritional Asmnt/Malnutr-PDOC - Dietary Evaluation Malnutrition Findings (Please click <Entered> for more info): Nutritional Asmnt/Malnutrition Start: 07/03/17 13: 22 Text: Status: Complete Freq: Document 07/03/17 13:22 MMULJENN (Rec: 07/03/17 13:35 MMULJENN ELLER- [email or web address]) Nutritional Asmnt/Malnutrition Patient General Information Nutritional Screening Consult Diagnosis UTI, Failure to thrive, hypokalemia Pertinent Medical Hx/Surgical Hx CAD, HTN, COPD, Stage 4 lung cancer, peripheral neuropathy, constipation, GERD, anxiety, low back pain Subjective Information Consult received for Failure to Thrive. Current Diet Order/ Nutrition Support Regular diet, pureed with mechaical soft Patient / S.O Not Indicated Pertinent Medications Vitamin C, dulcolax, D5-0.45 NS @ 75 ml/hr, colace, iron, folate, lactulose, theragran Pertinent Labs (07/02) P 1.5, Mg 1.7, albumin 2.9 Nutritional Hx/Data Height 1.6 m Height (Calculated Centimeters) 160.0 Current Weight (lbs) 54.885 kg Weight (Calculated Kilograms) 54.9 Weight (Calculated Grams) 68784.7 [place] Body Weight 115 % [place] Body Weight 105 Body Mass Index (BMI) 21.4 Recent Weight Change No Weight Status Approriate GI Symptoms GI Symptoms None Last BM Prior to admission Difficult in: None Food Allergies No Cultural/Ethnic/Adventism Belief None indicated Skin Integrity/Comment: Pradeep 15 Current %PO Poor (25-49%) Estimated Nutritional Goals BEE in Kcals: Using Current wt Calories/Kcals/Kg 55kg CBW (25-30kcal/kg) Kcals Calculated 6886-2926 kcal/day Protein: Using Current wt Protein g/k-1.2 gm/kg Protein Calculated 55-65 gm/day Fluid: ml 9509-8829 ml/day (1 ml/kcal) Nutritional Problem 2. Problem Problem Inadequate oral intake related to Etiology poor appetite aeb Signs/Symptoms: meeting <75% of estimated nutrient needs 1. Problem Problem Altered nutrition related lab values related to Etiology electrolyte imbalance aeb Signs/Symptoms: P 1.5, Mg 1.7 Intervention/Recommendation Comments 1. Continue pureed diet as tolerated by patient. 2. RN To assist with feedings and encourage oral intake. 3. Consider adding Boost plus between meals to optimize calorie and protein intake. Expected Outcomes/Goals Expected Outcomes/Goals Oral intake to meet >75% of needs, weight stable, nutrition labs WNL F/U MR 07/06-
[2017-07-13] MEDS: D5-0.45NS 1,000 ML IV SCH (14:30)
[2017-07-14] MEDS: Albuterol/Ipratropium Neb 3 ML AERS HHN SCH ×4 (01:09→18:38)
[2017-07-14] MEDS: D5-0.45NS 1,000 ML IV SCH ×2 (05:00→18:04)
[2017-07-14 05:13] LABS: MANUAL DIFF REQUIRED? YES
[2017-07-14] MEDS: methylPREDNISolone SS 40 mg Vial IVP SCH ×3 (05:13→20:12)
[2017-07-14 05:16] LABS: HEMATOCRIT 23.2 % (41.0-60); MEAN CELL VOLUME 87.3 fl (81-100); MEAN CORPUSCULAR HEMOGLOBIN 28.5 pg (27.0-31.0); MEAN CORPUSCULAR HGB CONC 32.7 pg (28.0-36.0); MEAN PLATELET VOLUME 6.7 fl; PLATELET COUNT 517 Th/cmm (150-400); RED BLOOD COUNT 2.66 Mil/cmm (3.80-5.20); RED CELL DISTRIBUTION WIDTH 15.3 % (11.5-20.0)
[2017-07-14 05:23] LABS: HEMOGLOBIN 7.6 gm/dL (12-16); WHITE BLOOD COUNT 14.7 Th/cmm (4.8-10.8)
[2017-07-14 05:27] LABS: ANION GAP 12.4 (7.0-16.0); BUN - UREA NITROGEN 37 mg/dL (7-25); CALCIUM SERUM 7.7 mg/dL (8.6-10.3); CARBON DIOXIDE 19.2 mEq/L (21.0-31.0); CHLORIDE 108 mEq/L (98-107); CREATININE - SERUM 1.3 mg/dL (0.6-1.2); GLUCOSE 179 mg/dL (70-105); POTASSIUM SERUM 4.6 mEq/L (3.5-5.1); SODIUM SERUM 135 mEq/L (136-145)
[2017-07-14 05:50] LABS: BAND NEUTROPHILE 1 % (0-10); HYPOCHROMIA 1+; LYMPHOCYTE 3 % (20-50); MONOCYTE 3 % (2-10); NEUTROPHILS 93 % (40-80); PLATELET ESTIMATE INCREASED PLATELETS (NORMAL); POLYCHROMASIA 1+; TOTAL CELLS COUNTED 100
[2017-07-14] MEDS: Budesonide 0.5 Mg/2 mL Ud HHN SCH ×2 (06:36→18:46)
--- NOTE | 2017-07-14 08:15 | General Progress Note ---
Subjective - Review of Systems Service Date: 07/14/17 Subjective: Pt seen and eval. In bed. Continues to be intubated. No awake or alert. Seen by jayson, bren, and heme onc, all of whom agree with hospice care. Dr. Montanez discussed poor prog with son. No fevers or chills. WBC elevated. No falls. Pt went into A fib pm 07/04/16, and was transferred to ICU on digoxin. Intubated as of 07/05/17. Was on Amiodarone and Levophed drip, both of which are off as of 07/06/17. Pt is no longer awake. She's unresponsive. She had large bm night of 07/10/17. On SIMV since night of 07/13/17. Objective - Results Result Diagrams: 07/14/17 05:00 07/14/17 05:00 Recent Labs: Laboratory Last Values WBC 14.7 Th/cmm (4.8-10.8) H 07/14/17 05:00 RBC 2.66 Mil/cmm (3.80-5.20) L 07/14/17 05:00 Hgb 7.6 gm/dL (12-16) L* 07/14/17 05:00 Hct 23.2 % (41.0-60) L 07/14/17 05:00 MCV 87.3 fl (81-100) 07/14/17 05:00 MCH 28.5 pg (27.0-31.0) 07/14/17 05:00 MCHC Differential 32.7 pg (28.0-36.0) 07/14/17 05:00 RDW 15.3 % (11.5-20.0) 07/14/17 05:00 Plt Count 517 Th/cmm (150-400) H 07/14/17 05:00 MPV 6.7 fl 07/14/17 05:00 Neutrophils % 95.6 % (40.0-80.0) H 07/12/17 04:20 Band Neutrophils % 1 % (0-10) 07/14/17 05:00 Lymphocytes % 3.1 % (20.0-50.0) L 07/12/17 04:20 Monocytes % 1.1 % (2.0-10.0) L 07/12/17 04:20 Eosinophils % 0.2 % (0.0-5.0) 07/12/17 04:20 Basophils % 0.0 % (0.0-2.0) 07/12/17 04:20 Neutrophils (Manual) 93 % (40-80) H 07/14/17 05:00 Lymphocytes 3 % (20-50) L 07/14/17 05:00 Monocytes 3 % (2-10) 07/14/17 05:00 Eosinophils 1 % (0-5) 07/13/17 04:26 Basophils 0 % (0-3) 07/11/17 04:15 Hypochromia 1+ 07/14/17 05:00 Platelet Estimate INCREASED PLATELETS (NORMAL) 07/14/17 05:00 Platelet Morphology NORMAL (NORMAL) 07/11/17 04:15 Polychromasia 1+ 07/14/17 05:00 RBC Morph Micro Appear NORMAL (NORMAL) 07/11/17 04:15 Specimen Source Arterial 07/08/17 11:40 Sample Site LB 07/08/17 11:40 pH 7.45 (7.35-7.45) 07/08/17 11:40 pCO2 30.0 mmHg (35.0-45.0) L 07/08/17 11:40 pO2 128.0 mmHg (80.0-100.0) H 07/08/17 11:40 HCO3 23.3 mEq/L (20.0-26.0) 07/08/17 11:40 Base Excess -2.2 mEq/L (-3.0-3.0) 07/08/17 11:40 O2 Saturation 99.0 % (92.0-100.0) 07/08/17 11:40 Darius Test NA 07/08/17 11:40 Vent Rate 14 07/08/17 11:40 Inspired O2 30 07/08/17 11:40 Tidal Volume 450 07/08/17 11:40 PEEP 5 07/08/17 11:40 Pressure (ins/psv/peep) NA 07/08/17 11:40 Critical Value E.GARCIA 07/08/17 11:40 Sodium 135 mEq/L (136-145) L 07/14/17 05:00 Potassium 4.6 mEq/L (3.5-5.1) 07/14/17 05:00 Chloride 108 mEq/L (98-107) H 07/14/17 05:00 Carbon Dioxide 19.2 mEq/L (21.0-31.0) L 07/14/17 05:00 Anion Gap 12.4 (7.0-16.0) 07/14/17 05:00 BUN 37 mg/dL (7-25) H 07/14/17 05:00 Creatinine 1.3 mg/dL (0.6-1.2) H 07/14/17 05:00 Est GFR ( Amer) TNP 07/14/17 05:00 Est GFR (Non-Af Amer) TNP 07/14/17 05:00 BUN/Creatinine Ratio 28.5 07/14/17 05:00 Glucose 179 mg/dL (70-105) H 07/14/17 05:00 Whole Bld Lactic Acid 3.99 mmol/L (0.60-1.99) H* 07/05/17 13:00 Calcium 7.7 mg/dL (8.6-10.3) L 07/14/17 05:00 Phosphorus 1.5 mg/dL (2.5-5.0) L 07/02/17 05:20 Magnesium 1.7 mg/dL (1.9-2.7) L 07/02/17 05:20 Iron 21 07/03/17 05:48 TIBC 131 07/03/17 05:48 Iron Saturation 16 07/03/17 05:48 Unsaturated IBC 110 07/03/17 05:48 Ferritin 334 ng/mL (15-150) H 07/03/17 05:48 Total Bilirubin 0.5 mg/dL (0.3-1.0) 07/05/17 06:05 AST 16 U/L (13-39) 07/05/17 06:05 ALT 8 U/L (7-52) 07/05/17 06:05 Alkaline Phosphatase 66 U/L (34-104) 07/05/17 06:05 Troponin I 0.09 ng/mL (0.01-0.05) H* D 07/04/17 05:50 B-Natriuretic Peptide 215.0 pg/mL (5.0-100.0) H 07/01/17 14:10 Total Protein 5.6 gm/dL (6.0-8.3) L 07/05/17 06:05 Albumin 2.6 gm/dL (3.7-5.3) L 07/05/17 06:05 Globulin 3.0 gm/dL 07/05/17 06:05 Albumin/Globulin Ratio 0.9 (1.0-1.8) L 07/05/17 06:05 Triglycerides 107 mg/dL (<150) 07/04/17 05:50 Cholesterol 114 mg/dL (<200) 07/04/17 05:50 LDL Cholesterol Direct 59 mg/dL (75-193) L 07/04/17 05:50 HDL Cholesterol 31 mg/dL (23-92) 07/04/17 05:50 TSH 1.46 uIU/ml (0.34-5.60) 07/04/17 05:50 Urine Source CATH 07/05/17 18:30 Urine Color YELLOW 07/05/17 18:30 Urine Clarity CLOUDY (CLEAR) H 07/05/17 18:30 Urine pH 5.5 (4.6 - 8.0) 07/05/17 18:30 Ur Specific [place] 1.025 (1.005-1.030) 07/05/17 18:30 Urine Protein 30 mg/dL (NEGATIVE) H 07/05/17 18:30 Urine Glucose (UA) NEGATIVE mg/dL (NEGATIVE) 07/05/17 18:30 Urine Ketones TRACE mg/dL (NEGATIVE) 07/05/17 18:30 Urine Blood SMALL (NEGATIVE) H 07/05/17 18:30 Urine Nitrate NEGATIVE (NEGATIVE) 07/05/17 18:30 Urine Bilirubin NEGATIVE (NEGATIVE) 07/05/17 18:30 Urine Urobilinogen 0.2 E.U./dL (0.2 - 1.0) 07/05/17 18:30 Ur Leukocyte Esterase LARGE (NEGATIVE) H 07/05/17 18:30 Urine RBC 2-5 /hpf (0-5) 07/05/17 18:30 Urine WBC >100 /hpf (0-5) H 07/05/17 18:30 Ur Epithelial Cells FEW /lpf (FEW) 07/05/17 18:30 Urine Bacteria FEW /hpf (NONE SEEN) 07/05/17 18:30 Urine Yeast FEW /hpf (NONE SEEN) H 07/05/17 18:30 Stool Occult Blood POSITIVE (NEGATIVE) H 07/13/17 19:00 Vancomycin Trough 11.2 ug/mL (5-10) H 07/09/17 09:24 - Physical Exam Vitals and I&O: Vital Signs Temp 98.2 F 07/14/17 04:00 Pulse 89 07/14/17 06:39 Resp 28 07/14/17 06:00 BP 121/61 07/14/17 06:00 Pulse Ox 100 07/14/17 06:39 Intake & Output 07/13/17 07/14/17 07/14/17 18:59 06:59 18:59 Intake Total 1200 1600 Output Total 1600 1100 Balance -400 500 Weight (lbs) 64.042 kg 68.266 kg Intake: Intake, IV Amount 1000 D5-0.45NS 1,000 ml @ 75 1000 mls/hr IV .[id number] [facility] Rx #:[id number] Tube Feeding 600 600 Other 600 Output: Urine 1600 1100 Other: # Bowel Movements 2 Stool Characteristics Soft Soft Brown Brown Green Green [facility] Active Medications: Current Medications Acetaminophen (Tylenol) 650 mg PO Q4H PRN PRN Reason: Fever > 101 Stop: 08/30/17 22:06 Last Admin: 07/13/17 20:47 Dose: 650 mg Albuterol/Ipratropium (Duoneb Neb) 3 ml HHN Q4HRT PRN PRN Reason: Wheezing Stop: 08/30/17 22:13 Albuterol/Ipratropium (Duoneb Neb) 3 ml HHN Q6HRT [facility] Stop: 08/31/17 00:59 Last Admin: 07/14/17 06:37 Dose: 3 ml Ascorbic Acid (Vitamin C) 500 mg PO DAILY [facility] Stop: 08/31/17 08:59 Last Admin: 07/13/17 09:57 Dose: 500 mg Baclofen (Lioresal) 5 mg PO TID [facility] Stop: 09/06/17 08:59 Last Admin: 07/13/17 20:48 Dose: 5 mg Bisacodyl (Dulcolax 10 Mg Supp) 10 mg RC HS PRN PRN Reason: BOWEL CARE MANAGEMENT Stop: 08/30/17 22:18 Budesonide (Pulmicort) 0.5 mg HHN BIDRT [facility] Stop: 08/31/17 18:59 Last Admin: 07/14/17 06:36 Dose: 0.5 mg Chlorhexidine Gluconate (Peridex) 15 ml MM 0800,1999 [facility] Stop: 09/03/17 19:59 Last Admin: 07/13/17 20:02 Dose: 15 ml Cyproheptadine HCl (Periactin) 4 mg PO BID SHADI Stop: 08/31/17 08:59 Last Admin: 07/13/17 16:46 Dose: 4 mg Docusate Sodium (Colace) 100 mg PO BID SHADI Stop: 08/31/17 08:59 Last Admin: 07/13/17 16:46 Dose: 100 mg Ferrous Sulfate (Iron) 325 mg PO BID SHADI Stop: 08/31/17 08:59 Last Admin: 07/13/17 16:46 Dose: 325 mg Folic Acid (Folate) 1 mg PO DAILY [facility] Stop: 08/31/17 08:59 Last Admin: 07/13/17 09:58 Dose: 1 mg Dextrose/Sodium Chloride (D5-0.45ns) 1,000 mls @ 75 mls/hr IV .[id number] [facility] Stop: 09/01/17 11:59 Last Admin: 07/14/17 05:00 Dose: 75 mls/hr Amiodarone HCl 450 mg/ Sodium (Chloride) 259 mls @ 0 mls/hr IV TITR SHADI; Titrate PRN Reason: Protocol Stop: 09/03/17 16:29 Last Titration: 07/06/17 08:00 Dose: 0 mg/min, 0 mls/hr Norepinephrine Bitartrate 4 mg (/ Sodium Chloride) 254 mls @ 0 mls/hr IV TITR SHADI; Titrate PRN Reason: Protocol Stop: 09/03/17 16:29 Lactobacillus Rhamnosus (Culturelle 15b) 1 each PO DAILY SHADI Stop: 09/01/17 08:59 Last Admin: 07/13/17 09:57 Dose: 1 each Lactulose (Cephulac) 20 gm PO QID PRN PRN Reason: Constipation Stop: 08/30/17 22:18 Last Admin: 07/08/17 10:11 Dose: 20 gm Lorazepam (Ativan) 1 mg IVP Q4HR PRN; Protocol PRN Reason: Anxiety Stop: 09/04/17 08:31 Last Admin: 04/20/18 21:57 Dose: 1 mg Methylprednisolone Sodium Succinate (Solu-Medrol) 40 mg IVP Q8HR SHADI Stop: 09/09/17 20:59 Last Admin: 07/14/17 05:13 Dose: 40 mg Miscellaneous (Probiotic Screen) 1 ea MC PRN PRN PRN Reason: PROTOCOL Stop: 09/01/17 08:44 Multivitamins/Vitamin C (Theragran) 1 tab PO DAILY SHADI Stop: 08/31/17 08:59 Last Admin: 07/13/17 09:58 Dose: 1 tab Nicotine (Nicotine Transdermal System) 14 mg TD DAILY SHADI Stop: 09/04/17 08:59 Last Admin: 07/13/17 09:00 Dose: 14 mg Pantoprazole Sodium (Protonix) 40 mg IVP DAILY SHADI Stop: 09/04/17 08:59 Last Admin: 07/13/17 09:57 Dose: 40 mg General: Other (intubated, cachectic appearing, not resposive) HEENT: Atraumatic, Other (no dc) Neck: Supple, no JVD, no Thyromegaly Cardiovascular: Regular rate, Other (in A fib) Lungs: Other (Intubated, has bl rales) Abdomen: Bowel sounds, Soft, no Tender, no Hepatomegaly Extremities: Edema, no Clubbing Neurological: Other (Pt unable to participate in test) Skin: no Rash Psych/Mental Status: Other (no psychosis) - Procedures Procedures: Procedures Procedure Code Date INSERT EMERGENCY AIRWAY 03470 07/01/17 INSERTION OF ENDOTRACHEAL AIRWAY INTO TRACHEA, VIA OPENING [id number] 07/01/17 RESPIRATORY VENTILATION, GREATER THAN 96 CONSECUTIVE HOURS [id number] 07/01/17 VENT MGMT INPAT INIT DAY 54147 07/01/17 Assessment/Plan - Problem List Patient Problems: All Active Problems WEAKESS AND POOR ORAL INTAKE (Acute) - Assessment Assessment: Septic shock A fib with RVR Fail to thrive Stage 4 lung ca Sepsis due to E Coli UTI ME Ch pain syn Anemia of ch ill Hypernatremia Hypokalemia Type 2 MD A fib - Plan Plan: Pt holds a poor progonosis. Been trying to communicate poor prognosis to the son. He wants "everything done. " Cardio, Pulm, and Heme Onc seeing pt, all of whom agree with comfort care/ hospice. On IV Zosyn and Vanco. Has been on Amiodarone and Levphed drip in ICU-now off as off 07/06/17. Intubated on 07/05/17. Elec corrected. I's and O's reviewed. Vent settings reviewed. Pt holds a poor prognosis. Son still wants everything done. No drips. Pt responsive. Weaning tried on 07/10/17, but could not tolerate it. Hgb dropping. Holding Xarelto as of 07/11/17. Check stool OB times 2. FU on CBC and Chem 7. Again, advised son of the grave prognosis and the fact that pt has poor quality of life and it will not improve. He still wants "everything done." As of 07/13/17, she's back on vent as she could not tolerate SIMV. After being back on AC mode, she's been tolerating SIMV since 07/13/17. Nutritional Asmnt/Malnutr-PDOC - Dietary Evaluation Malnutrition Findings (Please click <Entered> for more info): Nutritional Asmnt/Malnutrition Start: 07/03/17 13: 22 Text: Status: Complete Freq: Document 07/03/17 13:22 MMULHERN (Rec: 07/03/17 13:35 MMULHERN [email or web address]) Nutritional Asmnt/Malnutrition Patient General Information Nutritional Screening Consult Diagnosis UTI, Failure to thrive, hypokalemia Pertinent Medical Hx/Surgical Hx CAD, HTN, COPD, Stage 4 lung cancer, peripheral neuropathy, constipation, GERD, anxiety, low back pain Subjective Information Consult received for Failure to Thrive. Current Diet Order/ Nutrition Support Regular diet, pureed with mechaical soft Patient / S.O Not Indicated Pertinent Medications Vitamin C, dulcolax, D5-0.45 NS @ 75 ml/hr, colace, iron, folate, lactulose, theragran Pertinent Labs (07/02) P 1.5, Mg 1.7, albumin 2.9 Nutritional Hx/Data Height 1.6 m Height (Calculated Centimeters) 160.0 Current Weight (lbs) 54.885 kg Weight (Calculated Kilograms) 54.9 Weight (Calculated Grams) 03068.7 [place] Body Weight 115 % [place] Body Weight 105 Body Mass Index (BMI) 21.4 Recent Weight Change No Weight Status Approriate GI Symptoms GI Symptoms None Last BM Prior to admission Difficult in: None Food Allergies No Cultural/Ethnic/Cheondoism Belief None indicated Skin Integrity/Comment: Pradeep Cook Current %PO Poor (25-49%) Estimated Nutritional Goals BEE in Kcals: Using Current wt Calories/Kcals/Kg 55kg CBW (25-30kcal/kg) Kcals Calculated 3830-8394 kcal/day Protein: Using Current wt Protein g/k-1.2 gm/kg Protein Calculated 55-65 gm/day Fluid: ml 6470-9419 ml/day (1 ml/kcal) Nutritional Problem 2. Problem Problem Inadequate oral intake related to Etiology poor appetite aeb Signs/Symptoms: meeting <75% of estimated nutrient needs 1. Problem Problem Altered nutrition related lab values related to Etiology electrolyte imbalance aeb Signs/Symptoms: P 1.5, Mg 1.7 Intervention/Recommendation Comments 1. Continue pureed diet as tolerated by patient. 2. RN To assist with feedings and encourage oral intake. 3. Consider adding Boost plus between meals to optimize calorie and protein intake. Expected Outcomes/Goals Expected Outcomes/Goals Oral intake to meet >75% of needs, weight stable, nutrition labs WNL F/U MR 07/06-
[2017-07-14] MEDS: Chlorhexidine Gluconate 0.12% 15mL Mouthwash MM SCH ×2 (08:20→20:13)
--- NOTE | 2017-07-14 08:29 | Diagnostic Imaging Report ---
CHEST X-RAY: AP view INDICATION: Shortness of breath COMPARISON: 07/10/2017 FINDINGS: ET tube is seen with tip 4 cm above the izzy. NG tube is visualized the stomach with distal tip not seen. Midline right PICC is noted. Chronic lung changes with COPD changes. No focal consolidation or effusions. Heart size normal. Atherosclerosis is noted. IMPRESSION: Chronic lung changes with COPD changes. Infiltrate or mass lesion of the left perihilar region cannot be excluded. CT chest would provide additional detail and assessment.
[2017-07-14] MEDS: Nicotine 14 mg/24 hr Tdm TD SCH (09:00)
[2017-07-14] MEDS: Cyproheptadine 4 mg Tab PO SCH ×2 (09:11→16:14)
[2017-07-14] MEDS: Pantoprazole 40 mg EC Tab PO SCH (09:11)
[2017-07-14] MEDS: Ferrous Sulfate 325 MG TAB PO SCH ×2 (09:11→16:14)
[2017-07-14] MEDS: Multivitamin Tab PO SCH (09:12)
[2017-07-14] MEDS: Lactobacillus Rhamnosus GG 15 Billion CFU CAP.SPRINK PO SCH (09:12)
--- NOTE | 2017-07-14 10:39 | General Progress Note ---
Subjective - Review of Systems Service Date: 07/14/17 Subjective: unresponsive, opens eyes Objective - Results Result Diagrams: 07/14/17 05:00 07/14/17 05:00 Recent Labs: Laboratory Last Values WBC 14.7 Th/cmm (4.8-10.8) H 07/14/17 05:00 RBC 2.66 Mil/cmm (3.80-5.20) L 07/14/17 05:00 Hgb 7.6 gm/dL (12-16) L* 07/14/17 05:00 Hct 23.2 % (41.0-60) L 07/14/17 05:00 MCV 87.3 fl (81-100) 07/14/17 05:00 MCH 28.5 pg (27.0-31.0) 07/14/17 05:00 MCHC Differential 32.7 pg (28.0-36.0) 07/14/17 05:00 RDW 15.3 % (11.5-20.0) 07/14/17 05:00 Plt Count 517 Th/cmm (150-400) H 07/14/17 05:00 MPV 6.7 fl 07/14/17 05:00 Neutrophils % 95.6 % (40.0-80.0) H 07/12/17 04:20 Band Neutrophils % 1 % (0-10) 07/14/17 05:00 Lymphocytes % 3.1 % (20.0-50.0) L 07/12/17 04:20 Monocytes % 1.1 % (2.0-10.0) L 07/12/17 04:20 Eosinophils % 0.2 % (0.0-5.0) 07/12/17 04:20 Basophils % 0.0 % (0.0-2.0) 07/12/17 04:20 Neutrophils (Manual) 93 % (40-80) H 07/14/17 05:00 Lymphocytes 3 % (20-50) L 07/14/17 05:00 Monocytes 3 % (2-10) 07/14/17 05:00 Eosinophils 1 % (0-5) 07/13/17 04:26 Basophils 0 % (0-3) 07/11/17 04:15 Hypochromia 1+ 07/14/17 05:00 Platelet Estimate INCREASED PLATELETS (NORMAL) 07/14/17 05:00 Platelet Morphology NORMAL (NORMAL) 07/11/17 04:15 Polychromasia 1+ 07/14/17 05:00 RBC Morph Micro Appear NORMAL (NORMAL) 07/11/17 04:15 Specimen Source Arterial 07/08/17 11:40 Sample Site LB 07/08/17 11:40 pH 7.45 (7.35-7.45) 07/08/17 11:40 pCO2 30.0 mmHg (35.0-45.0) L 07/08/17 11:40 pO2 128.0 mmHg (80.0-100.0) H 07/08/17 11:40 HCO3 23.3 mEq/L (20.0-26.0) 07/08/17 11:40 Base Excess -2.2 mEq/L (-3.0-3.0) 07/08/17 11:40 O2 Saturation 99.0 % (92.0-100.0) 07/08/17 11:40 Darius Test NA 07/08/17 11:40 Vent Rate 14 07/08/17 11:40 Inspired O2 30 07/08/17 11:40 Tidal Volume 450 07/08/17 11:40 PEEP 5 07/08/17 11:40 Pressure (ins/psv/peep) NA 07/08/17 11:40 Critical Value E.GARCIA 07/08/17 11:40 Sodium 135 mEq/L (136-145) L 07/14/17 05:00 Potassium 4.6 mEq/L (3.5-5.1) 07/14/17 05:00 Chloride 108 mEq/L (98-107) H 07/14/17 05:00 Carbon Dioxide 19.2 mEq/L (21.0-31.0) L 07/14/17 05:00 Anion Gap 12.4 (7.0-16.0) 07/14/17 05:00 BUN 37 mg/dL (7-25) H 07/14/17 05:00 Creatinine 1.3 mg/dL (0.6-1.2) H 07/14/17 05:00 Est GFR ( Amer) TNP 07/14/17 05:00 Est GFR (Non-Af Amer) TNP 07/14/17 05:00 BUN/Creatinine Ratio 28.5 07/14/17 05:00 Glucose 179 mg/dL (70-105) H 07/14/17 05:00 Whole Bld Lactic Acid 3.99 mmol/L (0.60-1.99) H* 07/05/17 13:00 Calcium 7.7 mg/dL (8.6-10.3) L 07/14/17 05:00 Phosphorus 1.5 mg/dL (2.5-5.0) L 07/02/17 05:20 Magnesium 1.7 mg/dL (1.9-2.7) L 07/02/17 05:20 Iron 21 07/03/17 05:48 TIBC 131 07/03/17 05:48 Iron Saturation 16 07/03/17 05:48 Unsaturated IBC 110 07/03/17 05:48 Ferritin 334 ng/mL (15-150) H 07/03/17 05:48 Total Bilirubin 0.5 mg/dL (0.3-1.0) 07/05/17 06:05 AST 16 U/L (13-39) 07/05/17 06:05 ALT 8 U/L (7-52) 07/05/17 06:05 Alkaline Phosphatase 66 U/L (34-104) 07/05/17 06:05 Troponin I 0.09 ng/mL (0.01-0.05) H* D 07/04/17 05:50 B-Natriuretic Peptide 215.0 pg/mL (5.0-100.0) H 07/01/17 14:10 Total Protein 5.6 gm/dL (6.0-8.3) L 07/05/17 06:05 Albumin 2.6 gm/dL (3.7-5.3) L 07/05/17 06:05 Globulin 3.0 gm/dL 07/05/17 06:05 Albumin/Globulin Ratio 0.9 (1.0-1.8) L 07/05/17 06:05 Triglycerides 107 mg/dL (<150) 07/04/17 05:50 Cholesterol 114 mg/dL (<200) 07/04/17 05:50 LDL Cholesterol Direct 59 mg/dL (75-193) L 07/04/17 05:50 HDL Cholesterol 31 mg/dL (23-92) 07/04/17 05:50 TSH 1.46 uIU/ml (0.34-5.60) 07/04/17 05:50 Urine Source CATH 07/05/17 18:30 Urine Color YELLOW 07/05/17 18:30 Urine Clarity CLOUDY (CLEAR) H 07/05/17 18:30 Urine pH 5.5 (4.6 - 8.0) 07/05/17 18:30 Ur Specific [place] 1.025 (1.005-1.030) 07/05/17 18:30 Urine Protein 30 mg/dL (NEGATIVE) H 07/05/17 18:30 Urine Glucose (UA) NEGATIVE mg/dL (NEGATIVE) 07/05/17 18:30 Urine Ketones TRACE mg/dL (NEGATIVE) 07/05/17 18:30 Urine Blood SMALL (NEGATIVE) H 07/05/17 18:30 Urine Nitrate NEGATIVE (NEGATIVE) 07/05/17 18:30 Urine Bilirubin NEGATIVE (NEGATIVE) 07/05/17 18:30 Urine Urobilinogen 0.2 E.U./dL (0.2 - 1.0) 07/05/17 18:30 Ur Leukocyte Esterase LARGE (NEGATIVE) H 07/05/17 18:30 Urine RBC 2-5 /hpf (0-5) 07/05/17 18:30 Urine WBC >100 /hpf (0-5) H 07/05/17 18:30 Ur Epithelial Cells FEW /lpf (FEW) 07/05/17 18:30 Urine Bacteria FEW /hpf (NONE SEEN) 07/05/17 18:30 Urine Yeast FEW /hpf (NONE SEEN) H 07/05/17 18:30 Stool Occult Blood POSITIVE (NEGATIVE) H 07/13/17 19:00 Vancomycin Trough 11.2 ug/mL (5-10) H 07/09/17 09:24 - Physical Exam Vitals and I&O: Vital Signs Temp 98.2 F 07/14/17 04:00 Pulse 90 07/14/17 09:15 Resp 28 07/14/17 06:00 BP 121/61 07/14/17 06:00 Pulse Ox 100 07/14/17 09:15 Intake & Output 07/13/17 07/14/17 07/14/17 18:59 06:59 18:59 Intake Total 1200 1600 Output Total 1600 1100 Balance -400 500 Weight (lbs) 64.042 kg 68.266 kg Intake: Intake, IV Amount 1000 D5-0.45NS 1,000 ml @ 75 1000 mls/hr IV .[id number] [facility] Rx #:[id number] Tube Feeding 600 600 Other 600 Output: Urine 1600 1100 Other: # Bowel Movements 2 Stool Characteristics Soft Soft Brown Brown Green Green Weight Source Bedscale Bedscale Active Medications: Current Medications Acetaminophen (Tylenol) 650 mg PO Q4H PRN PRN Reason: Fever > 101 Stop: 08/30/17 22:06 Last Admin: 07/13/17 20:47 Dose: 650 mg Albuterol/Ipratropium (Duoneb Neb) 3 ml HHN Q4HRT PRN PRN Reason: Wheezing Stop: 08/30/17 22:13 Albuterol/Ipratropium (Duoneb Neb) 3 ml HHN Q6HRT [facility] Stop: 08/31/17 00:59 Last Admin: 07/14/17 06:37 Dose: 3 ml Ascorbic Acid (Vitamin C) 500 mg PO DAILY [facility] Stop: 08/31/17 08:59 Last Admin: 07/14/17 09:11 Dose: 500 mg Baclofen (Lioresal) 5 mg PO TID [facility] Stop: 09/06/17 08:59 Last Admin: 07/14/17 09:12 Dose: 5 mg Bisacodyl (Dulcolax 10 Mg Supp) 10 mg RC HS PRN PRN Reason: BOWEL CARE MANAGEMENT Stop: 08/30/17 22:18 Budesonide (Pulmicort) 0.5 mg HHN BIDRT [facility] Stop: 08/31/17 18:59 Last Admin: 07/14/17 06:36 Dose: 0.5 mg Chlorhexidine Gluconate (Peridex) 15 ml MM 0800,2000 [facility] Stop: 09/03/17 19:59 Last Admin: 07/14/17 08:20 Dose: 15 ml Cyproheptadine HCl (Periactin) 4 mg PO BID [facility] Stop: 08/31/17 08:59 Last Admin: 07/14/17 09:11 Dose: 4 mg Docusate Sodium (Colace) 100 mg PO BID [facility] Stop: 08/31/17 08:59 Last Admin: 07/14/17 09:11 Dose: 100 mg Ferrous Sulfate (Iron) 325 mg PO BID [facility] Stop: 08/31/17 08:59 Last Admin: 04/26/18 09:11 Dose: 325 mg Folic Acid (Folate) 1 mg PO DAILY [facility] Stop: 08/31/17 08:59 Last Admin: 07/14/17 09:11 Dose: 1 mg Dextrose/Sodium Chloride (D5-0.45ns) 1,000 mls @ 75 mls/hr IV .[id number] [facility] Stop: 09/01/17 11:59 Last Admin: 07/14/17 05:00 Dose: 75 mls/hr Amiodarone HCl 450 mg/ Sodium (Chloride) 259 mls @ 0 mls/hr IV TITR [facility]; Titrate PRN Reason: Protocol Stop: 09/03/17 16:29 Last Titration: 07/06/17 08:00 Dose: 0 mg/min, 0 mls/hr Norepinephrine Bitartrate 4 mg (/ Sodium Chloride) 254 mls @ 0 mls/hr IV TITR [facility]; Titrate PRN Reason: Protocol Stop: 09/03/17 16:29 Lactobacillus Rhamnosus (Culturelle 15b) 1 each PO DAILY [facility] Stop: 09/01/17 08:59 Last Admin: 07/14/17 09:12 Dose: 1 each Lactulose (Cephulac) 20 gm PO QID PRN PRN Reason: Constipation Stop: 08/30/17 22:18 Last Admin: 07/08/17 10:11 Dose: 20 gm Lorazepam (Ativan) 1 mg IVP Q4HR PRN; Protocol PRN Reason: Anxiety Stop: 09/04/17 08:31 Last Admin: 07/08/17 21:57 Dose: 1 mg Methylprednisolone Sodium Succinate (Solu-Medrol) 40 mg IVP Q8HR [facility] Stop: 09/09/17 20:59 Last Admin: 07/14/17 05:13 Dose: 40 mg Miscellaneous (Probiotic Screen) 1 ea MC PRN PRN PRN Reason: PROTOCOL Stop: 09/01/17 08:44 Multivitamins/Vitamin C (Theragran) 1 tab PO DAILY [facility] Stop: 08/31/17 08:59 Last Admin: 07/14/17 09:12 Dose: 1 tab Nicotine (Nicotine Transdermal System) 14 mg TD DAILY [facility] Stop: 09/04/17 08:59 Last Admin: 07/14/17 09:00 Dose: 14 mg Pantoprazole Sodium (Protonix) 40 mg IVP DAILY [facility] Stop: 09/04/17 08:59 Last Admin: 07/14/17 09:11 Dose: 40 mg Pantoprazole Sodium (Protonix) 40 mg PO DAILY [facility] Stop: 09/12/17 08:59 Last Admin: 07/14/17 09:11 Dose: 40 mg General: Other (intubated, cachectic appearing, not resposive) HEENT: Atraumatic, Other (no dc) Neck: Supple, no JVD, no Thyromegaly Cardiovascular: Regular rate, Other (in A fib) Lungs: Other (Intubated, has bl rales) Abdomen: Bowel sounds, Soft, no Tender, no Hepatomegaly Extremities: Edema, no Clubbing Neurological: Other (Pt unable to participate in test) Skin: no Rash Psych/Mental Status: Other (no psychosis) - Procedures Procedures: Procedures Procedure Code Date INSERT EMERGENCY AIRWAY 58122 07/01/17 INSERTION OF ENDOTRACHEAL AIRWAY INTO TRACHEA, VIA OPENING [id number] 07/01/17 RESPIRATORY VENTILATION, GREATER THAN 96 CONSECUTIVE HOURS [id number] 07/01/17 VENT MGMT INPAT INIT DAY 17118 07/01/17 Assessment/Plan - Problem List Patient Problems: All Active Problems WEAKESS AND POOR ORAL INTAKE (Acute) - Assessment Assessment: * Advanced metastatic cancer * poor functional status * Anemia likely of chronic disease * Respiratory failure s/p intubation 07/05 iron studies cw anemia of chronic disease. hgb 7.6 today no transfusion monitor hgb and transfuse for < 7.5 Nutritional Asmnt/Malnutr-PDOC - Dietary Evaluation Malnutrition Findings (Please click <Entered> for more info): Nutritional Asmnt/Malnutrition Start: 07/03/17 13: 22 Text: Status: Complete Freq: Document 07/03/17 13:22 MMULJENN (Rec: 07/03/17 13:35 MMULJENN ULLOA [email or web address]) Nutritional Asmnt/Malnutrition Patient General Information Nutritional Screening Consult Diagnosis UTI, Failure to thrive, hypokalemia Pertinent Medical Hx/Surgical Hx CAD, HTN, COPD, Stage 4 lung cancer, peripheral neuropathy, constipation, GERD, anxiety, low back pain Subjective Information Consult received for Failure to Thrive. Current Diet Order/ Nutrition Support Regular diet, pureed with mechaical soft Patient / S.O Not Indicated Pertinent Medications Vitamin C, dulcolax, D5-0.45 NS @ 75 ml/hr, colace, iron, folate, lactulose, theragran Pertinent Labs (07/02) P 1.5, Mg 1.7, albumin 2.9 Nutritional Hx/Data Height 1.6 m Height (Calculated Centimeters) 160.0 Current Weight (lbs) 54.885 kg Weight (Calculated Kilograms) 54.9 Weight (Calculated Grams) 30127.7 [place] Body Weight 115 % [place] Body Weight 105 Body Mass Index (BMI) 21.4 Recent Weight Change No Weight Status Approriate GI Symptoms GI Symptoms None Last BM Prior to admission Difficult in: None Food Allergies No Cultural/Ethnic/[employer] Belief None indicated Skin Integrity/Comment: Pradeep 15 Current %PO Poor (25-49%) Estimated Nutritional Goals BEE in Kcals: Using Current wt Calories/Kcals/Kg 55kg CBW (25-30kcal/kg) Kcals Calculated 2253-2603 kcal/day Protein: Using Current wt Protein g/k-1.2 gm/kg Protein Calculated 55-65 gm/day Fluid: ml 8361-6421 ml/day (1 ml/kcal) Nutritional Problem 2. Problem Problem Inadequate oral intake related to Etiology poor appetite aeb Signs/Symptoms: meeting <75% of estimated nutrient needs 1. Problem Problem Altered nutrition related lab values related to Etiology electrolyte imbalance aeb Signs/Symptoms: P 1.5, Mg 1.7 Intervention/Recommendation Comments 1. Continue pureed diet as tolerated by patient. 2. RN To assist with feedings and encourage oral intake. 3. Consider adding Boost plus between meals to optimize calorie and protein intake. Expected Outcomes/Goals Expected Outcomes/Goals Oral intake to meet >75% of needs, weight stable, nutrition labs WNL F/U MR 07/06-
--- NOTE | 2017-07-14 18:32 | Infectious Disease Prog Note ---
Infectious Disease Subjective - Review of Systems Service Date: 07/14/17 Events since last encounter: Developed fever Subjective: There is no new change. Patient remains intubated orally, on the ventilator support. Developed low grade fever. leukocytosis is improving. Infectious Disease Objective - Results Result Diagrams: 07/15/17 06:30 07/15/17 06:30 Recent Labs: Laboratory Last Values WBC 14.7 Th/cmm (4.8-10.8) H 07/14/17 05:00 RBC 2.66 Mil/cmm (3.80-5.20) L 07/14/17 05:00 Hgb 7.6 gm/dL (12-16) L* 07/14/17 05:00 Hct 23.2 % (41.0-60) L 07/14/17 05:00 MCV 87.3 fl (81-100) 07/14/17 05:00 MCH 28.5 pg (27.0-31.0) 07/14/17 05:00 MCHC Differential 32.7 pg (28.0-36.0) 07/14/17 05:00 RDW 15.3 % (11.5-20.0) 07/14/17 05:00 Plt Count 517 Th/cmm (150-400) H 07/14/17 05:00 MPV 6.7 fl 07/14/17 05:00 Neutrophils % 95.6 % (40.0-80.0) H 07/12/17 04:20 Band Neutrophils % 1 % (0-10) 07/14/17 05:00 Lymphocytes % 3.1 % (20.0-50.0) L 07/12/17 04:20 Monocytes % 1.1 % (2.0-10.0) L 07/12/17 04:20 Eosinophils % 0.2 % (0.0-5.0) 07/12/17 04:20 Basophils % 0.0 % (0.0-2.0) 07/12/17 04:20 Neutrophils (Manual) 93 % (40-80) H 07/14/17 05:00 Lymphocytes 3 % (20-50) L 07/14/17 05:00 Monocytes 3 % (2-10) 07/14/17 05:00 Eosinophils 1 % (0-5) 07/13/17 04:26 Basophils 0 % (0-3) 07/11/17 04:15 Hypochromia 1+ 07/14/17 05:00 Platelet Estimate INCREASED PLATELETS (NORMAL) 07/14/17 05:00 Platelet Morphology NORMAL (NORMAL) 07/11/17 04:15 Polychromasia 1+ 07/14/17 05:00 RBC Morph Micro Appear NORMAL (NORMAL) 07/11/17 04:15 Specimen Source Arterial 07/08/17 11:40 Sample Site LB 07/08/17 11:40 pH 7.45 (7.35-7.45) 07/08/17 11:40 pCO2 30.0 mmHg (35.0-45.0) L 07/08/17 11:40 pO2 128.0 mmHg (80.0-100.0) H 07/08/17 11:40 HCO3 23.3 mEq/L (20.0-26.0) 07/08/17 11:40 Base Excess -2.2 mEq/L (-3.0-3.0) 07/08/17 11:40 O2 Saturation 99.0 % (92.0-100.0) 07/08/17 11:40 Darius Test NA 07/08/17 11:40 Vent Rate 14 07/08/17 11:40 Inspired O2 30 07/08/17 11:40 Tidal Volume 450 07/08/17 11:40 PEEP 5 07/08/17 11:40 Pressure (ins/psv/peep) NA 07/08/17 11:40 Critical Value E.GARCIA 07/08/17 11:40 Sodium 135 mEq/L (136-145) L 07/14/17 05:00 Potassium 4.6 mEq/L (3.5-5.1) 07/14/17 05:00 Chloride 108 mEq/L (98-107) H 07/14/17 05:00 Carbon Dioxide 19.2 mEq/L (21.0-31.0) L 07/14/17 05:00 Anion Gap 12.4 (7.0-16.0) 07/14/17 05:00 BUN 37 mg/dL (7-25) H 07/14/17 05:00 Creatinine 1.3 mg/dL (0.6-1.2) H 07/14/17 05:00 Est GFR ( Amer) TNP 07/14/17 05:00 Est GFR (Non-Af Amer) TNP 07/14/17 05:00 BUN/Creatinine Ratio 28.5 07/14/17 05:00 Glucose 179 mg/dL (70-105) H 07/14/17 05:00 POC Glucose 177 MG/DL (70 - 105) H 07/14/17 11:26 Whole Bld Lactic Acid 3.99 mmol/L (0.60-1.99) H* 07/05/17 13:00 Calcium 7.7 mg/dL (8.6-10.3) L 07/14/17 05:00 Phosphorus 1.5 mg/dL (2.5-5.0) L 07/02/17 05:20 Magnesium 1.7 mg/dL (1.9-2.7) L 07/02/17 05:20 Iron 21 07/03/17 05:48 TIBC 131 07/03/17 05:48 Iron Saturation 16 07/03/17 05:48 Unsaturated IBC 110 07/03/17 05:48 Ferritin 334 ng/mL (15-150) H 07/03/17 05:48 Total Bilirubin 0.5 mg/dL (0.3-1.0) 07/05/17 06:05 AST 16 U/L (13-39) 07/05/17 06:05 ALT 8 U/L (7-52) 07/05/17 06:05 Alkaline Phosphatase 66 U/L (34-104) 07/05/17 06:05 Troponin I 0.09 ng/mL (0.01-0.05) H* D 07/04/17 05:50 B-Natriuretic Peptide 215.0 pg/mL (5.0-100.0) H 07/01/17 14:10 Total Protein 5.6 gm/dL (6.0-8.3) L 07/05/17 06:05 Albumin 2.6 gm/dL (3.7-5.3) L 07/05/17 06:05 Globulin 3.0 gm/dL 07/05/17 06:05 Albumin/Globulin Ratio 0.9 (1.0-1.8) L 07/05/17 06:05 Triglycerides 107 mg/dL (<150) 07/04/17 05:50 Cholesterol 114 mg/dL (<200) 07/04/17 05:50 LDL Cholesterol Direct 59 mg/dL (75-193) L 07/04/17 05:50 HDL Cholesterol 31 mg/dL (23-92) 07/04/17 05:50 TSH 1.46 uIU/ml (0.34-5.60) 07/04/17 05:50 Urine Source CATH 07/05/17 18:30 Urine Color YELLOW 07/05/17 18:30 Urine Clarity CLOUDY (CLEAR) H 07/05/17 18:30 Urine pH 5.5 (4.6 - 8.0) 07/05/17 18:30 Ur Specific [place] 1.025 (1.005-1.030) 07/05/17 18:30 Urine Protein 30 mg/dL (NEGATIVE) H 07/05/17 18:30 Urine Glucose (UA) NEGATIVE mg/dL (NEGATIVE) 07/05/17 18:30 Urine Ketones TRACE mg/dL (NEGATIVE) 07/05/17 18:30 Urine Blood SMALL (NEGATIVE) H 07/05/17 18:30 Urine Nitrate NEGATIVE (NEGATIVE) 07/05/17 18:30 Urine Bilirubin NEGATIVE (NEGATIVE) 07/05/17 18:30 Urine Urobilinogen 0.2 E.U./dL (0.2 - 1.0) 07/05/17 18:30 Ur Leukocyte Esterase LARGE (NEGATIVE) H 07/05/17 18:30 Urine RBC 2-5 /hpf (0-5) 07/05/17 18:30 Urine WBC >100 /hpf (0-5) H 07/05/17 18:30 Ur Epithelial Cells FEW /lpf (FEW) 07/05/17 18:30 Urine Bacteria FEW /hpf (NONE SEEN) 07/05/17 18:30 Urine Yeast FEW /hpf (NONE SEEN) H 07/05/17 18:30 Stool Occult Blood POSITIVE (NEGATIVE) H 07/13/17 19:00 Vancomycin Trough 11.2 ug/mL (5-10) H 07/09/17 09:24 - Physical Exam Vitals and I&O: Vital Signs Temp 99.2 F 07/14/17 17:00 Pulse 88 07/14/17 17:09 Resp 26 07/14/17 17:00 BP 119/58 07/14/17 17:00 Pulse Ox 100 07/14/17 17:09 Intake & Output 07/13/17 07/14/17 07/14/17 18:59 06:59 18:59 Intake Total 1200 1600 1910.00 Output Total 1600 1100 750 Balance -126 550 5322.00 Weight (lbs) 64.042 kg 68.266 kg 67.302 kg Intake: Intake, IV Amount 1000 980.00 D5-0.45NS 1,000 ml @ 75 1000 980.00 mls/hr IV .[id number] [facility] Rx #:[id number] Tube Feeding 600 600 600 Other 600 330 Output: Urine 1600 1100 750 Other: # Bowel Movements 2 1 Stool Characteristics Soft Soft Soft Brown Brown Brown Green Green Green Weight Source Bedscale Bedscale Bedscale Active Medications: Current Medications Acetaminophen (Tylenol) 650 mg PO Q4H PRN PRN Reason: Fever > 101 Stop: 08/30/17 22:06 Last Admin: 07/14/17 11:31 Dose: 650 mg Albuterol/Ipratropium (Duoneb Neb) 3 ml HHN Q4HRT PRN PRN Reason: Wheezing Stop: 08/30/17 22:13 Albuterol/Ipratropium (Duoneb Neb) 3 ml HHN Q6HRT [facility] Stop: 08/31/17 00:59 Last Admin: 07/14/17 13:36 Dose: 3 ml Ascorbic Acid (Vitamin C) 500 mg PO DAILY [facility] Stop: 08/31/17 08:59 Last Admin: 07/14/17 09:11 Dose: 500 mg Baclofen (Lioresal) 5 mg PO TID [facility] Stop: 09/06/17 08:59 Last Admin: 07/14/17 13:15 Dose: 5 mg Bisacodyl (Dulcolax 10 Mg Supp) 10 mg RC HS PRN PRN Reason: BOWEL CARE MANAGEMENT Stop: 08/30/17 22:18 Budesonide (Pulmicort) 0.5 mg HHN BIDRT [facility] Stop: 08/31/17 18:59 Last Admin: 07/14/17 06:36 Dose: 0.5 mg Chlorhexidine Gluconate (Peridex) 15 ml MM 0800,2000 [facility] Stop: 09/03/17 19:59 Last Admin: 07/14/17 08:20 Dose: 15 ml Cyproheptadine HCl (Periactin) 4 mg PO BID [facility] Stop: 08/31/17 08:59 Last Admin: 07/14/17 16:14 Dose: 4 mg Docusate Sodium (Colace) 100 mg PO BID [facility] Stop: 08/31/17 08:59 Last Admin: 07/14/17 16:14 Dose: 100 mg Ferrous Sulfate (Iron) 325 mg PO BID [facility] Stop: 08/31/17 08:59 Last Admin: 07/14/17 16:14 Dose: 325 mg Folic Acid (Folate) 1 mg PO DAILY [facility] Stop: 08/31/17 08:59 Last Admin: 07/14/17 09:11 Dose: 1 mg Dextrose/Sodium Chloride (D5-0.45ns) 1,000 mls @ 75 mls/hr IV .[id number] [facility] Stop: 09/01/17 11:59 Last Admin: 07/14/17 18:04 Dose: 75 mls/hr Amiodarone HCl 450 mg/ Sodium (Chloride) 259 mls @ 0 mls/hr IV TITR [facility]; Titrate PRN Reason: Protocol Stop: 09/03/17 16:29 Last Titration: 07/06/17 08:00 Dose: 0 mg/min, 0 mls/hr Norepinephrine Bitartrate 4 mg (/ Sodium Chloride) 254 mls @ 0 mls/hr IV TITR [facility]; Titrate PRN Reason: Protocol Stop: 09/03/17 16:29 Lactobacillus Rhamnosus (Culturelle 15b) 1 each PO DAILY [facility] Stop: 09/01/17 08:59 Last Admin: 07/14/17 09:12 Dose: 1 each Lactulose (Cephulac) 20 gm PO QID PRN PRN Reason: Constipation Stop: 08/30/17 22:18 Last Admin: 07/08/17 10:11 Dose: 20 gm Lorazepam (Ativan) 1 mg IVP Q4HR PRN; Protocol PRN Reason: Anxiety Stop: 09/04/17 08:31 Last Admin: 07/08/17 21:57 Dose: 1 mg Methylprednisolone Sodium Succinate (Solu-Medrol) 40 mg IVP Q8HR [facility] Stop: 09/09/17 20:59 Last Admin: 07/14/17 12:54 Dose: 40 mg Miscellaneous (Probiotic Screen) 1 ea MC PRN PRN PRN Reason: PROTOCOL Stop: 09/01/17 08:44 Multivitamins/Vitamin C (Theragran) 1 tab PO DAILY [facility] Stop: 08/31/17 08:59 Last Admin: 07/14/17 09:12 Dose: 1 tab Nicotine (Nicotine Transdermal System) 14 mg TD DAILY [facility] Stop: 09/04/17 08:59 Last Admin: 07/14/17 09:00 Dose: 14 mg Pantoprazole Sodium (Protonix) 40 mg IVP DAILY [facility] Stop: 09/04/17 08:59 Last Admin: 07/14/17 09:11 Dose: 40 mg Pantoprazole Sodium (Protonix) 40 mg PO DAILY [facility] Stop: 09/12/17 08:59 Last Admin: 07/14/17 09:11 Dose: 40 mg General: no acute distress HEENT: atraumatic, normocephalic, PERRLA Neck: supple, no thyromegaly, no lymphadenopathy Cardiovascular: S1S2, regular Lungs: clear to percussion, crackles, rhonchi Abdomen: soft, no tender, no distended, no mass Extremities: no cyanosis, no clubbing, no edema Neurological: other (confused.) Skin: intact - Procedures Procedures: Procedures Procedure Code Date INSERT EMERGENCY AIRWAY 56875 07/01/17 INSERTION OF ENDOTRACHEAL AIRWAY INTO [place]ACHEA, VIA OPENING [id number] 07/01/17 RESPIRATORY VENTILATION, GREATER THAN 96 CONSECUTIVE HOURS [id number] 07/01/17 VENT MGMT INPAT INIT DAY [id number] 07/01/17 Infectious Disease Assmt/Plan - Problem List Patient Problems: All Active Problems WEAKESS AND POOR ORAL INTAKE (Acute) - Assessment Assessment: 1. Leukocytosis. Fever, sepsis. 2. Pneumonia. 3. Stage IV lung CA. 4. Protein calorie malnutrion, 5. VDRF. 6. ALTERED MENTAL STATUS. - Plan Plan: Start levaquin. Nutritional Asmnt/Malnutr-PDOC - Dietary Evaluation Malnutrition Findings (Please click <Entered> for more info): Nutritional Asmnt/Malnutrition Start: 07/03/17 13: 22 Text: Status: Complete Freq: Document 07/03/17 13:22 MMULJENN (Rec: 07/03/17 13:35 MMULJENN ELLER- FN) Nutritional Asmnt/Malnutrition Patient General Information Nutritional Screening Consult Diagnosis UTI, Failure to thrive, hypokalemia Pertinent Medical Hx/Surgical Hx CAD, HTN, COPD, Stage 4 lung cancer, peripheral neuropathy, constipation, GERD, anxiety, low back pain Subjective Information Consult received for Failure to Thrive. Current Diet Order/ Nutrition Support Regular diet, pureed with mechaical soft Patient / S.O Not Indicated Pertinent Medications Vitamin C, dulcolax, D5-0.45 NS @ 75 ml/hr, colace, iron, folate, lactulose, theragran Pertinent Labs (07/02) P 1.5, Mg 1.7, albumin 2.9 Nutritional Hx/Data Height 1.6 m Height (Calculated Centimeters) 160.0 Current Weight (lbs) 54.885 kg Weight (Calculated Kilograms) 54.9 Weight (Calculated Grams) 62923.7 [place] Body Weight 115 % [place] Body Weight 105 Body Mass Index (BMI) 21.4 Recent Weight Change No Weight Status Approriate GI Symptoms GI Symptoms None Last BM Prior to admission Difficult in: None Food Allergies No Cultural/Ethnic/Voodoo Belief None indicated Skin Integrity/Comment: Pradeep 15 Current %PO Poor (25-49%) Estimated Nutritional Goals BEE in Kcals: Using Current wt Calories/Kcals/Kg 55kg CBW (25-30kcal/kg) Kcals Calculated 6613-6505 kcal/day Protein: Using Current wt Protein g/k-1.2 gm/kg Protein Calculated 55-65 gm/day Fluid: ml 0882-0056 ml/day (1 ml/kcal) Nutritional Problem 2. Problem Problem Inadequate oral intake related to Etiology poor appetite aeb Signs/Symptoms: meeting <75% of estimated nutrient needs 1. Problem Problem Altered nutrition related lab values related to Etiology electrolyte imbalance aeb Signs/Symptoms: P 1.5, Mg 1.7 Intervention/Recommendation Comments 1. Continue pureed diet as tolerated by patient. 2. RN To assist with feedings and encourage oral intake. 3. Consider adding Boost plus between meals to optimize calorie and protein intake. Expected Outcomes/Goals Expected Outcomes/Goals Oral intake to meet >75% of needs, weight stable, nutrition labs WNL F/U MR 07/06-
[2017-07-14] MEDS: Levofloxacin 500mg/100mL 500 MG/100 ML BAG IV SCH (20:08)
[2017-07-15] MEDS: Albuterol/Ipratropium Neb 3 ML AERS HHN SCH ×4 (00:53→18:28)
[2017-07-15] MEDS: methylPREDNISolone SS 40 mg Vial IVP SCH ×3 (05:29→21:22)
[2017-07-15 07:08] LABS: BASOPHILE ABSOLUTE 0.1 Th/cumm (0-0.2); EOSINOPHILE ABSOLUTE 0.1 Th/cmm (0.1-0.4); HEMATOCRIT 28.5 % (41.0-60); HEMOGLOBIN 9.5 gm/dL (12-16); LYMPHOCYTE ABSOLUTE 0.6 Th/cmm (1.5-3.0); MEAN CELL VOLUME 87.3 fl (81-100); MEAN CORPUSCULAR HEMOGLOBIN 29.1 pg (27.0-31.0); MEAN CORPUSCULAR HGB CONC 33.4 pg (28.0-36.0); MEAN PLATELET VOLUME 7.2 fl; MONOCYTE ABSOLUTE 0.8 Th/cmm (0.3-1.0); NEUTROPHILE ABSOLUTE 17.1 Th/cmm (1.8-8.0); PLATELET COUNT 493 Th/cmm (150-400); RED BLOOD COUNT 3.26 Mil/cmm (3.80-5.20); RED CELL DISTRIBUTION WIDTH 16.2 % (11.5-20.0)
[2017-07-15 07:10] LABS: WHITE BLOOD COUNT 18.7 Th/cmm (4.8-10.8)
[2017-07-15 07:11] LABS: % BASOPHILS 0.4 % (0.0-2.0); % EOSINOPHILS 0.3 % (0.0-5.0); % LYMPHOCYTES 3.2 % (20.0-50.0); % MONOCYTES 4.3 % (2.0-10.0); % NEUTROPHILS 91.8 % (40.0-80.0)
[2017-07-15 07:33] LABS: ANION GAP 13.8 (7.0-16.0); BUN - UREA NITROGEN 39 mg/dL (7-25); CALCIUM SERUM 8.1 mg/dL (8.6-10.3); CARBON DIOXIDE 22.1 mEq/L (21.0-31.0); CHLORIDE 105 mEq/L (98-107); CREATININE - SERUM 1.3 mg/dL (0.6-1.2); GLUCOSE 160 mg/dL (70-105); POTASSIUM SERUM 4.9 mEq/L (3.5-5.1); SODIUM SERUM 136 mEq/L (136-145)
[2017-07-15] MEDS: Budesonide 0.5 Mg/2 mL Ud HHN SCH ×2 (08:06→18:28)
[2017-07-15] MEDS: Cyproheptadine 4 mg Tab PO SCH ×2 (08:50→17:07)
[2017-07-15] MEDS: Nicotine 14 mg/24 hr Tdm TD SCH (08:50)
[2017-07-15] MEDS: Ferrous Sulfate 325 MG TAB PO SCH ×2 (08:51→17:07)
[2017-07-15] MEDS: Lactobacillus Rhamnosus GG 15 Billion CFU CAP.SPRINK PO SCH (08:51)
[2017-07-15] MEDS: Chlorhexidine Gluconate 0.12% 15mL Mouthwash MM SCH ×2 (08:51→19:43)
[2017-07-15] MEDS: Pantoprazole 40 mg EC Tab PO SCH (08:51)
[2017-07-15] MEDS: Multivitamin Tab PO SCH (08:51)
--- NOTE | 2017-07-15 08:51 | General Progress Note ---
Subjective - Review of Systems Service Date: 07/15/17 Events since last encounter: Hemoglobin increased to 9.5 and wbc increased to 18.7. NG tube remains in place. Patient has a fever yesterday afternoon. Continues to be intubated. She is awake but does not follow directions Seen by jayson, bren, and heme onc, all of whom agree with hospice care. Dr. Montanez discussed poor prog with son. I spoke with the Son on several occasions and he is refusing hospice care at this time. He would like his mother to be weaned from the ventilator On SIMV since night of 07/13/17. Subjective: The patient is resting comfortably in bed. Does not appear to be in any acute pain or distress. Denies chest pain, coughin, abd pain, dysuria or falls. She remains intubated at this time Objective - Results Result Diagrams: 07/15/17 06:30 07/15/17 06:30 Recent Labs: Laboratory Last Values WBC 18.7 Th/cmm (4.8-10.8) H 07/15/17 06:30 RBC 3.26 Mil/cmm (3.80-5.20) L 07/15/17 06:30 Hgb 9.5 gm/dL (12-16) L 07/15/17 06:30 Hct 28.5 % (41.0-60) L 07/15/17 06:30 MCV 87.3 fl (81-100) 07/15/17 06:30 MCH 29.1 pg (27.0-31.0) 07/15/17 06:30 MCHC Differential 33.4 pg (28.0-36.0) 07/15/17 06:30 RDW 16.2 % (11.5-20.0) 07/15/17 06:30 Plt Count 493 Th/cmm (150-400) H 07/15/17 06:30 MPV 7.2 fl 07/15/17 06:30 Neutrophils % 91.8 % (40.0-80.0) H 07/15/17 06:30 Band Neutrophils % 1 % (0-10) 07/14/17 05:00 Lymphocytes % 3.2 % (20.0-50.0) L 07/15/17 06:30 Monocytes % 4.3 % (2.0-10.0) 07/15/17 06:30 Eosinophils % 0.3 % (0.0-5.0) 07/15/17 06:30 Basophils % 0.4 % (0.0-2.0) 07/15/17 06:30 Neutrophils (Manual) 93 % (40-80) H 07/14/17 05:00 Lymphocytes 3 % (20-50) L 07/14/17 05:00 Monocytes 3 % (2-10) 07/14/17 05:00 Eosinophils 1 % (0-5) 07/13/17 04:26 Basophils 0 % (0-3) 07/11/17 04:15 Hypochromia 1+ 07/14/17 05:00 Platelet Estimate INCREASED PLATELETS (NORMAL) 07/14/17 05:00 Platelet Morphology NORMAL (NORMAL) 07/11/17 04:15 Polychromasia 1+ 07/14/17 05:00 RBC Morph Micro Appear NORMAL (NORMAL) 07/11/17 04:15 Specimen Source Arterial 07/08/17 11:40 Sample Site LB 07/08/17 11:40 pH 7.45 (7.35-7.45) 07/08/17 11:40 pCO2 30.0 mmHg (35.0-45.0) L 07/08/17 11:40 pO2 128.0 mmHg (80.0-100.0) H 07/08/17 11:40 HCO3 23.3 mEq/L (20.0-26.0) 07/08/17 11:40 Base Excess -2.2 mEq/L (-3.0-3.0) 07/08/17 11:40 O2 Saturation 99.0 % (92.0-100.0) 07/08/17 11:40 Darius Test NA 07/08/17 11:40 Vent Rate 14 07/08/17 11:40 Inspired O2 30 07/08/17 11:40 Tidal Volume 450 07/08/17 11:40 PEEP 5 07/08/17 11:40 Pressure (ins/psv/peep) NA 07/08/17 11:40 Critical Value E.GARCIA 07/08/17 11:40 Sodium 136 mEq/L (136-145) 07/15/17 06:30 Potassium 4.9 mEq/L (3.5-5.1) 07/15/17 06:30 Chloride 105 mEq/L (98-107) 07/15/17 06:30 Carbon Dioxide 22.1 mEq/L (21.0-31.0) 07/15/17 06:30 Anion Gap 13.8 (7.0-16.0) 07/15/17 06:30 BUN 39 mg/dL (7-25) H 07/15/17 06:30 Creatinine 1.3 mg/dL (0.6-1.2) H 07/15/17 06:30 Est GFR ( Amer) TNP 07/15/17 06:30 Est GFR (Non-Af Amer) TNP 07/15/17 06:30 BUN/Creatinine Ratio 30.0 07/15/17 06:30 Glucose 160 mg/dL (70-105) H 07/15/17 06:30 POC Glucose 177 MG/DL (70 - 105) H 07/14/17 11:26 Whole Bld Lactic Acid 3.99 mmol/L (0.60-1.99) H* 07/05/17 13:00 Calcium 8.1 mg/dL (8.6-10.3) L 07/15/17 06:30 Phosphorus 1.5 mg/dL (2.5-5.0) L 07/02/17 05:20 Magnesium 1.7 mg/dL (1.9-2.7) L 07/02/17 05:20 Iron 21 07/03/17 05:48 TIBC 131 07/03/17 05:48 Iron Saturation 16 07/03/17 05:48 Unsaturated IBC 110 07/03/17 05:48 Ferritin 334 ng/mL (15-150) H 07/03/17 05:48 Total Bilirubin 0.5 mg/dL (0.3-1.0) 07/05/17 06:05 AST 16 U/L (13-39) 07/05/17 06:05 ALT 8 U/L (7-52) 07/05/17 06:05 Alkaline Phosphatase 66 U/L (34-104) 07/05/17 06:05 Troponin I 0.09 ng/mL (0.01-0.05) H* D 07/04/17 05:50 B-Natriuretic Peptide 215.0 pg/mL (5.0-100.0) H 07/01/17 14:10 Total Protein 5.6 gm/dL (6.0-8.3) L 07/05/17 06:05 Albumin 2.6 gm/dL (3.7-5.3) L 07/05/17 06:05 Globulin 3.0 gm/dL 07/05/17 06:05 Albumin/Globulin Ratio 0.9 (1.0-1.8) L 07/05/17 06:05 Triglycerides 107 mg/dL (<150) 07/04/17 05:50 Cholesterol 114 mg/dL (<200) 07/04/17 05:50 LDL Cholesterol Direct 59 mg/dL (75-193) L 07/04/17 05:50 HDL Cholesterol 31 mg/dL (23-92) 07/04/17 05:50 TSH 1.46 uIU/ml (0.34-5.60) 07/04/17 05:50 Urine Source CATH 07/05/17 18:30 Urine Color YELLOW 07/05/17 18:30 Urine Clarity CLOUDY (CLEAR) H 07/05/17 18:30 Urine pH 5.5 (4.6 - 8.0) 07/05/17 18:30 Ur Specific [place] 1.025 (1.005-1.030) 07/05/17 18:30 Urine Protein 30 mg/dL (NEGATIVE) H 07/05/17 18:30 Urine Glucose (UA) NEGATIVE mg/dL (NEGATIVE) 07/05/17 18:30 Urine Ketones TRACE mg/dL (NEGATIVE) 07/05/17 18:30 Urine Blood SMALL (NEGATIVE) H 07/05/17 18:30 Urine Nitrate NEGATIVE (NEGATIVE) 07/05/17 18:30 Urine Bilirubin NEGATIVE (NEGATIVE) 07/05/17 18:30 Urine Urobilinogen 0.2 E.U./dL (0.2 - 1.0) 07/05/17 18:30 Ur Leukocyte Esterase LARGE (NEGATIVE) H 07/05/17 18:30 Urine RBC 2-5 /hpf (0-5) 07/05/17 18:30 Urine WBC >100 /hpf (0-5) H 07/05/17 18:30 Ur Epithelial Cells FEW /lpf (FEW) 07/05/17 18:30 Urine Bacteria FEW /hpf (NONE SEEN) 07/05/17 18:30 Urine Yeast FEW /hpf (NONE SEEN) H 07/05/17 18:30 Stool Occult Blood POSITIVE (NEGATIVE) H 07/13/17 19:00 Vancomycin Trough 11.2 ug/mL (5-10) H 07/09/17 09:24 - Physical Exam Vitals and I&O: Vital Signs Temp 98.3 F 07/15/17 06:00 Pulse 86 07/15/17 08:00 Resp 25 07/15/17 06:00 BP 138/68 07/15/17 06:00 Pulse Ox 100 07/15/17 08:00 Intake & Output 07/14/17 07/15/17 07/15/17 18:59 06:59 18:59 Intake Total 1910.00 300 Output Total 750 1050 Balance 1160.00 -750 Weight (lbs) 67.302 kg 67.302 kg Intake: Intake, IV Amount 980.00 100 D5-0.45NS 1,000 ml @ 75 980.00 mls/hr IV .[id number] [facility] Rx #:[id number] Levofloxacin 500mg/100mL 100 500 mg In 100 ml @ 100 mls/hr IV Q24HR [facility] Rx#: [id number] Tube Feeding 600 Other 330 200 Output: Urine 750 1050 Other: # Bowel Movements 1 2 Stool Characteristics Soft Soft Brown Brown Green Green Weight Source Bedscale Bedscale Active Medications: Current Medications Acetaminophen (Tylenol) 650 mg PO Q4H PRN PRN Reason: Fever > 101 Stop: 08/30/17 22:06 Last Admin: 07/14/17 11:31 Dose: 650 mg Albuterol/Ipratropium (Duoneb Neb) 3 ml HHN Q4HRT PRN PRN Reason: Wheezing Stop: 08/30/17 22:13 Albuterol/Ipratropium (Duoneb Neb) 3 ml HHN Q6HRT [facility] Stop: 08/31/17 00:59 Last Admin: 07/15/17 08:06 Dose: 3 ml Ascorbic Acid (Vitamin C) 500 mg PO DAILY [facility] Stop: 08/31/17 08:59 Last Admin: 07/14/17 09:11 Dose: 500 mg Baclofen (Lioresal) 5 mg PO TID [facility] Stop: 09/06/17 08:59 Last Admin: 07/14/17 20:13 Dose: 5 mg Bisacodyl (Dulcolax 10 Mg Supp) 10 mg RC HS PRN PRN Reason: BOWEL CARE MANAGEMENT Stop: 08/30/17 22:18 Budesonide (Pulmicort) 0.5 mg HHN BIDRT [facility]I Stop: 08/31/17 18:59 Last Admin: 07/15/17 08:06 Dose: 0.5 mg Chlorhexidine Gluconate (Peridex) 15 ml MM 0800,2000 [facility] Stop: 09/03/17 19:59 Last Admin: 07/14/17 20:13 Dose: 15 ml Cyproheptadine HCl (Periactin) 4 mg PO BID [facility] Stop: 08/31/17 08:59 Last Admin: 07/14/17 16:14 Dose: 4 mg Docusate Sodium (Colace) 100 mg PO BID [facility] Stop: 08/31/17 08:59 Last Admin: 07/14/17 16:14 Dose: 100 mg Ferrous Sulfate (Iron) 325 mg PO BID [facility] Stop: 08/31/17 08:59 Last Admin: 07/14/17 16:14 Dose: 325 mg Folic Acid (Folate) 1 mg PO DAILY [facility] Stop: 08/31/17 08:59 Last Admin: 07/14/17 09:11 Dose: 1 mg Dextrose/Sodium Chloride (D5-0.45ns) 1,000 mls @ 75 mls/hr IV .[id number] [facility] Stop: 09/01/17 11:59 Last Admin: 07/14/17 18:04 Dose: 75 mls/hr Amiodarone HCl 450 mg/ Sodium (Chloride) 259 mls @ 0 mls/hr IV TITR SHADI; Titrate PRN Reason: Protocol Stop: 09/03/17 16:29 Last Titration: 07/06/17 08:00 Dose: 0 mg/min, 0 mls/hr Norepinephrine Bitartrate 4 mg (/ Sodium Chloride) 254 mls @ 0 mls/hr IV TITR SHADI; Titrate PRN Reason: Protocol Stop: 09/03/17 16:29 Levofloxacin (Levaquin Pb) 500 mg in 100 mls @ 100 mls/hr IV Q24HR [facility] Stop: 09/12/17 18:44 Last Infusion: 07/14/17 21:10 Dose: Infused Lactobacillus Rhamnosus (Culturelle 15b) 1 each PO DAILY [facility] Stop: 09/01/17 08:59 Last Admin: 07/14/17 09:12 Dose: 1 each Lactulose (Cephulac) 20 gm PO QID PRN PRN Reason: Constipation Stop: 08/30/17 22:18 Last Admin: 07/08/17 10:11 Dose: 20 gm Lorazepam (Ativan) 1 mg IVP Q4HR PRN; Protocol PRN Reason: Anxiety Stop: 09/04/17 08:31 Last Admin: 07/08/17 21:57 Dose: 1 mg Methylprednisolone Sodium Succinate (Solu-Medrol) 40 mg IVP Q8HR [facility] Stop: 09/09/17 20:59 Last Admin: 07/15/17 05:29 Dose: 40 mg Miscellaneous (Probiotic Screen) 1 ea MC PRN PRN PRN Reason: PROTOCOL Stop: 09/01/17 08:44 Multivitamins/Vitamin C (Theragran) 1 tab PO DAILY [facility]ADI Stop: 08/31/17 08:59 Last Admin: 07/14/17 09:12 Dose: 1 tab Nicotine (Nicotine Transdermal System) 14 mg TD DAILY [facility] Stop: 09/04/17 08:59 Last Admin: 07/14/17 09:00 Dose: 14 mg Pantoprazole Sodium (Protonix) 40 mg IVP DAILY [facility]I Stop: 09/04/17 08:59 Last Admin: 07/14/17 09:11 Dose: 40 mg Pantoprazole Sodium (Protonix) 40 mg PO DAILY [facility]ADI Stop: 09/12/17 08:59 Last Admin: 07/14/17 09:11 Dose: 40 mg General: Other (intubated, cachectic appearing, not resposive) HEENT: Atraumatic, Other (no dc) Neck: Supple, no JVD, no Thyromegaly Cardiovascular: Regular rate, Other (in A fib) Lungs: Other (Intubated, has bl rales) Abdomen: Bowel sounds, Soft, no Tender, no Hepatomegaly Extremities: Edema, no Clubbing Neurological: Other (Pt unable to participate in test) Skin: no Rash Psych/Mental Status: Other (no psychosis) - Procedures Procedures: Procedures Procedure Code Date INSERT EMERGENCY AIRWAY 60899 07/01/17 INSERTION OF ENDOTRACHEAL AIRWAY INTO TRACHEA, VIA OPENING [id number] 07/01/17 RESPIRATORY VENTILATION, GREATER THAN 96 CONSECUTIVE HOURS [id number] 07/01/17 VENT MGMT INPAT INIT DAY 65858 07/01/17 Assessment/Plan - Problem List Patient Problems: All Active Problems WEAKESS AND POOR ORAL INTAKE (Acute) - Assessment Assessment: Current Active Problems Problem Status Onset WEAKESS AND POOR ORAL INTAKE Acute Septic shock A fib with RVR Fail to thrive Stage 4 lung ca Sepsis due to E Coli UTI ME Ch pain syn Anemia of ch ill Hypernatremia Hypokalemia Type 2 ID A fib - Plan Plan: Pt holds a poor progonosis. Been trying to communicate poor prognosis to the son. He wants "everything done. " Cardio, Pulm, and Heme Onc seeing pt, all of whom agree with comfort care/ hospice. Continue abx Has been on Amiodarone and Levphed drip in ICU-now off as off 07/06/17. Intubated on 07/05/17. Elec corrected. I's and O's reviewed. Vent settings reviewed. Weaning tried on 07/10/17, but could not tolerate it. HGB increased to 9.5. Continue to monitor for bleeding or decreased hgb Again, advised son of the grave prognosis and the fact that pt has poor quality of life and it will not improve. He still wants "everything done." As of 07/13/17, she's back on vent as she could not tolerate SIMV. After being back on AC mode, she's been tolerating SIMV since 07/13/17. Nutritional Asmnt/Malnutr-PDOC - Dietary Evaluation Malnutrition Findings (Please click <Entered> for more info): Nutritional Asmnt/Malnutrition Start: 07/03/17 13: 22 Text: Status: Complete Freq: Document 07/03/17 13:22 URBAN (Rec: 07/03/17 13:35 [email or web address]) Nutritional Asmnt/Malnutrition Patient General Information Nutritional Screening Consult Diagnosis UTI, Failure to thrive, hypokalemia Pertinent Medical Hx/Surgical Hx CAD, HTN, COPD, Stage 4 lung cancer, peripheral neuropathy, constipation, GERD, anxiety, low back pain Subjective Information Consult received for Failure to Thrive. Current Diet Order/ Nutrition Support Regular diet, pureed with mechaical soft Patient / S.O Not Indicated Pertinent Medications Vitamin C, dulcolax, D5-0.45 NS @ 75 ml/hr, colace, iron, folate, lactulose, theragran Pertinent Labs (07/02) P 1.5, Mg 1.7, albumin 2.9 Nutritional Hx/Data Height 1.6 m Height (Calculated Centimeters) 160.0 Current Weight (lbs) 54.885 kg Weight (Calculated Kilograms) 54.9 Weight (Calculated Grams) 96364.7 [place] Body Weight 115 % [place] Body Weight 105 Body Mass Index (BMI) 21.4 Recent Weight Change No Weight Status Approriate GI Symptoms GI Symptoms None Last BM Prior to admission Difficult in: None Food Allergies No Cultural/Ethnic/Moravian Belief None indicated Skin Integrity/Comment: Pradeep 15 Current %PO Poor (25-49%) Estimated Nutritional Goals BEE in Kcals: Using Current wt Calories/Kcals/Kg 55kg CBW (25-30kcal/kg) Kcals Calculated 1816-5525 kcal/day Protein: Using Current wt Protein g/k-1.2 gm/kg Protein Calculated 55-65 gm/day Fluid: ml 4170-4953 ml/day (1 ml/kcal) Nutritional Problem 2. Problem Problem Inadequate oral intake related to Etiology poor appetite aeb Signs/Symptoms: meeting <75% of estimated nutrient needs 1. Problem Problem Altered nutrition related lab values related to Etiology electrolyte imbalance aeb Signs/Symptoms: P 1.5, Mg 1.7 Intervention/Recommendation Comments 1. Continue pureed diet as tolerated by patient. 2. RN To assist with feedings and encourage oral intake. 3. Consider adding Boost plus between meals to optimize calorie and protein intake. Expected Outcomes/Goals Expected Outcomes/Goals Oral intake to meet >75% of needs, weight stable, nutrition labs WNL F/U MR 07/06-
[2017-07-15] MEDS: D5-0.45NS 1,000 ML IV SCH (11:00)
--- NOTE | 2017-07-15 13:42 | Infectious Disease Prog Note ---
Infectious Disease Subjective - Review of Systems Service Date: 07/15/17 Subjective: There is no new change. Patient remains intubated orally, on the ventilator support. No fever, worsening of leukocytosis is improving. Infectious Disease Objective - Results Result Diagrams: 07/15/17 06:30 07/15/17 06:30 Recent Labs: Laboratory Last Values WBC 18.7 Th/cmm (4.8-10.8) H 07/15/17 06:30 RBC 3.26 Mil/cmm (3.80-5.20) L 07/15/17 06:30 Hgb 9.5 gm/dL (12-16) L 07/15/17 06:30 Hct 28.5 % (41.0-60) L 07/15/17 06:30 MCV 87.3 fl (81-100) 07/15/17 06:30 MCH 29.1 pg (27.0-31.0) 07/15/17 06:30 MCHC Differential 33.4 pg (28.0-36.0) 07/15/17 06:30 RDW 16.2 % (11.5-20.0) 07/15/17 06:30 Plt Count 493 Th/cmm (150-400) H 07/15/17 06:30 MPV 7.2 fl 07/15/17 06:30 Neutrophils % 91.8 % (40.0-80.0) H 07/15/17 06:30 Band Neutrophils % 1 % (0-10) 07/14/17 05:00 Lymphocytes % 3.2 % (20.0-50.0) L 07/15/17 06:30 Monocytes % 4.3 % (2.0-10.0) 07/15/17 06:30 Eosinophils % 0.3 % (0.0-5.0) 07/15/17 06:30 Basophils % 0.4 % (0.0-2.0) 07/15/17 06:30 Neutrophils (Manual) 93 % (40-80) H 07/14/17 05:00 Lymphocytes 3 % (20-50) L 07/14/17 05:00 Monocytes 3 % (2-10) 07/14/17 05:00 Eosinophils 1 % (0-5) 07/13/17 04: Basophils 0 % (0-3) 07/11/17 04:15 Hypochromia 1+ 07/14/17 05:00 Platelet Estimate INCREASED PLATELETS (NORMAL) 07/14/17 05:00 Platelet Morphology NORMAL (NORMAL) 07/11/17 04:15 Polychromasia 1+ 07/14/17 05:00 RBC Morph Micro Appear NORMAL (NORMAL) 07/11/17 04:15 Specimen Source Arterial 07/08/17 11:40 Sample Site LB 07/08/17 11:40 pH 7.45 (7.35-7.45) 07/08/17 11:40 pCO2 30.0 mmHg (35.0-45.0) L 07/08/17 11:40 pO2 128.0 mmHg (80.0-100.0) H 07/08/17 11:40 HCO3 23.3 mEq/L (20.0-26.0) 07/08/17 11:40 Base Excess -2.2 mEq/L (-3.0-3.0) 07/08/17 11:40 O2 Saturation 99.0 % (92.0-100.0) 07/08/17 11:40 Darius Test NA 07/08/17 11:40 Vent Rate 14 07/08/17 11:40 Inspired O2 30 07/08/17 11:40 Tidal Volume 450 07/08/17 11:40 PEEP 5 07/08/17 11:40 Pressure (ins/psv/peep) NA 07/08/17 11:40 Critical Value E.GARCIA 07/08/17 11:40 Sodium 136 mEq/L (136-145) 07/15/17 06:30 Potassium 4.9 mEq/L (3.5-5.1) 07/15/17 06:30 Chloride 105 mEq/L (98-107) 07/15/17 06:30 Carbon Dioxide 22.1 mEq/L (21.0-31.0) 07/15/17 06:30 Anion Gap 13.8 (7.0-16.0) 07/15/17 06:30 BUN 39 mg/dL (7-25) H 07/15/17 06:30 Creatinine 1.3 mg/dL (0.6-1.2) H 07/15/17 06:30 Est GFR ( Amer) TNP 07/15/17 06:30 Est GFR (Non-Af Amer) TNP 07/15/17 06:30 BUN/Creatinine Ratio 30.0 07/15/17 06:30 Glucose 160 mg/dL (70-105) H 07/15/17 06:30 POC Glucose 177 MG/DL (70 - 105) H 07/14/17 11:26 Whole Bld Lactic Acid 3.99 mmol/L (0.60-1.99) H* 07/05/17 13:00 Calcium 8.1 mg/dL (8.6-10.3) L 07/15/17 06:30 Phosphorus 1.5 mg/dL (2.5-5.0) L 07/02/17 05:20 Magnesium 1.7 mg/dL (1.9-2.7) L 07/02/17 05:20 Iron 21 07/03/17 05:48 TIBC 131 07/03/17 05:48 Iron Saturation 16 07/03/17 05:48 Unsaturated IBC 110 07/03/17 05:48 Ferritin 334 ng/mL (15-150) H 07/03/17 05:48 Total Bilirubin 0.5 mg/dL (0.3-1.0) 07/05/17 06:05 AST 16 U/L (13-39) 07/05/17 06:05 ALT 8 U/L (7-52) 07/05/17 06:05 Alkaline Phosphatase 66 U/L (34-104) 07/05/17 06:05 Troponin I 0.09 ng/mL (0.01-0.05) H* D 07/04/17 05:50 B-Natriuretic Peptide 215.0 pg/mL (5.0-100.0) H 07/01/17 14:10 Total Protein 5.6 gm/dL (6.0-8.3) L 07/05/17 06:05 Albumin 2.6 gm/dL (3.7-5.3) L 07/05/17 06:05 Globulin 3.0 gm/dL 07/05/17 06:05 Albumin/Globulin Ratio 0.9 (1.0-1.8) L 07/05/17 06:05 Triglycerides 107 mg/dL (<150) 07/04/17 05:50 Cholesterol 114 mg/dL (<200) 07/04/17 05:50 LDL Cholesterol Direct 59 mg/dL (75-193) L 07/04/17 05:50 HDL Cholesterol 31 mg/dL (23-92) 07/04/17 05:50 TSH 1.46 uIU/ml (0.34-5.60) 07/04/17 05:50 Urine Source CATH 07/05/17 18:30 Urine Color YELLOW 07/05/17 18:30 Urine Clarity CLOUDY (CLEAR) H 07/05/17 18:30 Urine pH 5.5 (4.6 - 8.0) 07/05/17 18:30 Ur Specific [place] 1.025 (1.005-1.030) 07/05/17 18:30 Urine Protein 30 mg/dL (NEGATIVE) H 07/05/17 18:30 Urine Glucose (UA) NEGATIVE mg/dL (NEGATIVE) 07/05/17 18:30 Urine Ketones TRACE mg/dL (NEGATIVE) 07/05/17 18:30 Urine Blood SMALL (NEGATIVE) H 07/05/17 18:30 Urine Nitrate NEGATIVE (NEGATIVE) 07/05/17 18:30 Urine Bilirubin NEGATIVE (NEGATIVE) 07/05/17 18:30 Urine Urobilinogen 0.2 E.U./dL (0.2 - 1.0) 07/05/17 18:30 Ur Leukocyte Esterase LARGE (NEGATIVE) H 07/05/17 18:30 Urine RBC 2-5 /hpf (0-5) 07/05/17 18:30 Urine WBC >100 /hpf (0-5) H 07/05/17 18:30 Ur Epithelial Cells FEW /lpf (FEW) 07/05/17 18:30 Urine Bacteria FEW /hpf (NONE SEEN) 07/05/17 18:30 Urine Yeast FEW /hpf (NONE SEEN) H 07/05/17 18:30 Stool Occult Blood POSITIVE (NEGATIVE) H 07/13/17 19:00 Vancomycin Trough 11.2 ug/mL (5-10) H 07/09/17 09:24 - Physical Exam Vitals and I&O: Vital Signs Temp 98.8 F 07/15/17 13:00 Pulse 86 07/15/17 13:00 Resp 23 07/15/17 13:00 BP 133/56 07/15/17 13:00 Pulse Ox 100 07/15/17 13:00 Intake & Output 07/14/17 07/15/17 07/15/17 18:59 06:59 18:59 Intake Total 1910.00 300 Output Total 750 1050 Balance 1160.00 -750 Weight (lbs) 67.302 kg 67.302 kg Intake: Intake, IV Amount 980.00 100 D5-0.45NS 1,000 ml @ 75 980.00 mls/hr IV .[id number] [facility] Rx #:[id number] Levofloxacin 500mg/100mL 100 500 mg In 100 ml @ 100 mls/hr IV Q24HR [facility] Rx#: [id number] Tube Feeding 600 Other 330 200 Output: Urine 750 1050 Other: # Bowel Movements 1 2 Stool Characteristics Soft Soft Soft Brown Brown Brown Green Green Green Weight Source Bedscale Bedscale Active Medications: Current Medications Acetaminophen (Tylenol) 650 mg PO Q4H PRN PRN Reason: Fever > 101 Stop: 08/30/17 22:06 Last Admin: 07/14/17 11:31 Dose: 650 mg Albuterol/Ipratropium (Duoneb Neb) 3 ml HHN Q4HRT PRN PRN Reason: Wheezing Stop: 08/30/17 22:13 Albuterol/Ipratropium (Duoneb Neb) 3 ml HHN Q6HRT [facility] Stop: 08/31/17 00:59 Last Admin: 07/15/17 13:33 Dose: 3 ml Ascorbic Acid (Vitamin C) 500 mg PO DAILY [facility] Stop: 08/31/17 08:59 Last Admin: 07/15/17 08:51 Dose: 500 mg Baclofen (Lioresal) 5 mg PO TID [facility] Stop: 09/06/17 08:59 Last Admin: 07/15/17 08:51 Dose: 5 mg Bisacodyl (Dulcolax 10 Mg Supp) 10 mg RC HS PRN PRN Reason: BOWEL CARE MANAGEMENT Stop: 08/30/17 22:18 Budesonide (Pulmicort) 0.5 mg HHN BIDRT [facility] Stop: 08/31/17 18:59 Last Admin: 07/15/17 08:06 Dose: 0.5 mg Chlorhexidine Gluconate (Peridex) 15 ml MM 0800,2000 [facility] Stop: 09/03/17 19:59 Last Admin: 07/15/17 08:51 Dose: 15 ml Cyproheptadine HCl (Periactin) 4 mg PO BID [facility] Stop: 08/31/17 08:59 Last Admin: 07/15/17 08:50 Dose: 4 mg Docusate Sodium (Colace) 100 mg PO BID [facility] Stop: 08/31/17 08:59 Last Admin: 07/15/17 08:51 Dose: 100 mg Ferrous Sulfate (Iron) 325 mg PO BID [facility] Stop: 08/31/17 08:59 Last Admin: 07/15/17 08:51 Dose: 325 mg Folic Acid (Folate) 1 mg PO DAILY [facility] Stop: 08/31/17 08:59 Last Admin: 07/15/17 08:50 Dose: 1 mg Dextrose/Sodium Chloride (D5-0.45ns) 1,000 mls @ 75 mls/hr IV .[id number] [facility] Stop: 09/01/17 11:59 Last Admin: 07/14/17 18:04 Dose: 75 mls/hr Amiodarone HCl 450 mg/ Sodium (Chloride) 259 mls @ 0 mls/hr IV TITR [facility]; Titrate PRN Reason: Protocol Stop: 09/03/17 16:29 Last Titration: 07/06/17 08:00 Dose: 0 mg/min, 0 mls/hr Norepinephrine Bitartrate 4 mg (/ Sodium Chloride) 254 mls @ 0 mls/hr IV TITR [facility]; Titrate PRN Reason: Protocol Stop: 09/03/17 16:29 Levofloxacin (Levaquin Pb) 500 mg in 100 mls @ 100 mls/hr IV Q24HR [facility] Stop: 09/12/17 18:44 Last Infusion: 07/14/17 21:10 Dose: Infused Lactobacillus Rhamnosus (Culturelle 15b) 1 each PO DAILY [facility] Stop: 09/01/17 08:59 Last Admin: 07/15/17 08:51 Dose: 1 each Lactulose (Cephulac) 20 gm PO QID PRN PRN Reason: Constipation Stop: 08/30/17 22:18 Last Admin: 07/08/17 10:11 Dose: 20 gm Lorazepam (Ativan) 1 mg IVP Q4HR PRN; Protocol PRN Reason: Anxiety Stop: 09/04/17 08:31 Last Admin: 07/08/17 21:57 Dose: 1 mg Methylprednisolone Sodium Succinate (Solu-Medrol) 40 mg IVP Q8HR [facility] Stop: 09/09/17 20:59 Last Admin: 07/15/17 05:29 Dose: 40 mg Miscellaneous (Probiotic Screen) 1 ea MC PRN PRN PRN Reason: PROTOCOL Stop: 09/01/17 08:44 Multivitamins/Vitamin C (Theragran) 1 tab PO DAILY [facility] Stop: 08/31/17 08:59 Last Admin: 07/15/17 08:51 Dose: 1 tab Nicotine (Nicotine Transdermal System) 14 mg TD DAILY [facility] Stop: 09/04/17 08:59 Last Admin: 07/15/17 08:50 Dose: 14 mg Pantoprazole Sodium (Protonix) 40 mg IVP BID [facility] Stop: 09/13/17 08:59 General: no acute distress, well developed, well nourished HEENT: atraumatic, normocephalic, PERRLA Neck: supple, no thyromegaly Cardiovascular: S1S2, regular Lungs: clear to percussion, rhonchi Abdomen: soft, bowel sounds, no tender, no distended, no mass Extremities: no cyanosis, no clubbing, no edema Neurological: other (obtunded) - Procedures Procedures: Procedures Procedure Code Date INSERT EMERGENCY AIRWAY 90779 07/01/17 INSERTION OF ENDOTRACHEAL AIRWAY INTO TRACHEA, VIA OPENING [id number] 07/01/17 RESPIRATORY VENTILATION, GREATER THAN 96 CONSECUTIVE HOURS [id number] 07/01/17 VENT MGMT INPAT INIT DAY 61900 07/01/17 Infectious Disease Assmt/Plan - Problem List Patient Problems: All Active Problems WEAKESS AND POOR ORAL INTAKE (Acute) - Assessment Assessment: 1. Leukocytosis. Fever, sepsis. 2. Pneumonia. 3. Stage IV lung CA. 4. Protein calorie malnutrion, 5. VDRF. 6. ALTERED MENTAL STATUS. - Plan Plan: Continue levaquin. Nutritional Asmnt/Malnutr-PDOC - Dietary Evaluation Malnutrition Findings (Please click <Entered> for more info): Nutritional Asmnt/Malnutrition Start: 07/03/17 13: 22 Text: Status: Complete Freq: Document 07/03/17 13:22 MMKENY (Rec: 07/03/17 13:35 MMKENY ELLER- [email or web address]) Nutritional Asmnt/Malnutrition Patient General Information Nutritional Screening Consult Diagnosis UTI, Failure to thrive, hypokalemia Pertinent Medical Hx/Surgical Hx CAD, HTN, COPD, Stage 4 lung cancer, peripheral neuropathy, constipation, GERD, anxiety, low back pain Subjective Information Consult received for Failure to Thrive. Current Diet Order/ Nutrition Support Regular diet, pureed with mechaical soft Patient / S.O Not Indicated Pertinent Medications Vitamin C, dulcolax, D5-0.45 NS @ 75 ml/hr, colace, iron, folate, lactulose, theragran Pertinent Labs (07/02) P 1.5, Mg 1.7, albumin 2.9 Nutritional Hx/Data Height 1.6 m Height (Calculated Centimeters) 160.0 Current Weight (lbs) 54.885 kg Weight (Calculated Kilograms) 54.9 Weight (Calculated Grams) 94367.7 [place] Body Weight 115 % [place] Body Weight 105 Body Mass Index (BMI) 21.4 Recent Weight Change No Weight Status Approriate GI Symptoms GI Symptoms None Last BM Prior to admission Difficult in: None Food Allergies No Cultural/Ethnic/Christianity Belief None indicated Skin Integrity/Comment: Pradeep Cook Current %PO Poor (25-49%) Estimated Nutritional Goals BEE in Kcals: Using Current wt Calories/Kcals/Kg 55kg CBW (25-30kcal/kg) Kcals Calculated 8359-8757 kcal/day Protein: Using Current wt Protein g/k-1.2 gm/kg Protein Calculated 55-65 gm/day Fluid: ml 2770-1449 ml/day (1 ml/kcal) Nutritional Problem 2. Problem Problem Inadequate oral intake related to Etiology poor appetite aeb Signs/Symptoms: meeting <75% of estimated nutrient needs 1. Problem Problem Altered nutrition related lab values related to Etiology electrolyte imbalance aeb Signs/Symptoms: P 1.5, Mg 1.7 Intervention/Recommendation Comments 1. Continue pureed diet as tolerated by patient. 2. RN To assist with feedings and encourage oral intake. 3. Consider adding Boost plus between meals to optimize calorie and protein intake. Expected Outcomes/Goals Expected Outcomes/Goals Oral intake to meet >75% of needs, weight stable, nutrition labs WNL F/U MR 07/06-
[2017-07-15] MEDS: Levofloxacin 500mg/100mL 500 MG/100 ML BAG IV SCH (17:45)
--- NOTE | 2017-07-15 18:14 | General Progress Note ---
Subjective - Review of Systems Service Date: 07/15/17 Subjective: unresponsive, opens eyes Objective - Results Result Diagrams: 07/15/17 06:30 07/15/17 06:30 Recent Labs: Laboratory Last Values WBC 18.7 Th/cmm (4.8-10.8) H 07/15/17 06:30 RBC 3.26 Mil/cmm (3.80-5.20) L 07/15/17 06:30 Hgb 9.5 gm/dL (12-16) L 07/15/17 06:30 Hct 28.5 % (41.0-60) L 07/15/17 06:30 MCV 87.3 fl (81-100) 07/15/17 06:30 MCH 29.1 pg (27.0-31.0) 07/15/17 06:30 MCHC Differential 33.4 pg (28.0-36.0) 07/15/17 06:30 RDW 16.2 % (11.5-20.0) 07/15/17 06:30 Plt Count 493 Th/cmm (150-400) H 07/15/17 06:30 MPV 7.2 fl 07/15/17 06:30 Neutrophils % 91.8 % (40.0-80.0) H 07/15/17 06:30 Band Neutrophils % 1 % (0-10) 07/14/17 05:00 Lymphocytes % 3.2 % (20.0-50.0) L 07/15/17 06:30 Monocytes % 4.3 % (2.0-10.0) 07/15/17 06:30 Eosinophils % 0.3 % (0.0-5.0) 07/15/17 06:30 Basophils % 0.4 % (0.0-2.0) 07/15/17 06:30 Neutrophils (Manual) 93 % (40-80) H 07/14/17 05:00 Lymphocytes 3 % (20-50) L 07/14/17 05:00 Monocytes 3 % (2-10) 07/14/17 05:00 Eosinophils 1 % (0-5) 07/13/17 04:26 Basophils 0 % (0-3) 07/11/17 04:15 Hypochromia 1+ 07/14/17 05:00 Platelet Estimate INCREASED PLATELETS (NORMAL) 07/14/17 05:00 Platelet Morphology NORMAL (NORMAL) 07/11/17 04:15 Polychromasia 1+ 07/14/17 05:00 RBC Morph Micro Appear NORMAL (NORMAL) 07/11/17 04:15 Specimen Source Arterial 07/08/17 11:40 Sample Site LB 07/08/17 11:40 pH 7.45 (7.35-7.45) 07/08/17 11:40 pCO2 30.0 mmHg (35.0-45.0) L 07/08/17 11:40 pO2 128.0 mmHg (80.0-100.0) H 07/08/17 11:40 HCO3 23.3 mEq/L (20.0-26.0) 07/08/17 11:40 Base Excess -2.2 mEq/L (-3.0-3.0) 07/08/17 11:40 O2 Saturation 99.0 % (92.0-100.0) 07/08/17 11:40 Darius Test NA 07/08/17 11:40 Vent Rate 14 07/08/17 11:40 Inspired O2 30 07/08/17 11:40 Tidal Volume 450 07/08/17 11:40 PEEP 5 07/08/17 11:40 Pressure (ins/psv/peep) NA 07/08/17 11:40 Critical Value E.GARCIA 07/08/17 11:40 Sodium 136 mEq/L (136-145) 07/15/17 06:30 Potassium 4.9 mEq/L (3.5-5.1) 07/15/17 06:30 Chloride 105 mEq/L (98-107) 07/15/17 06:30 Carbon Dioxide 22.1 mEq/L (21.0-31.0) 07/15/17 06:30 Anion Gap 13.8 (7.0-16.0) 07/15/17 06:30 BUN 39 mg/dL (7-25) H 07/15/17 06:30 Creatinine 1.3 mg/dL (0.6-1.2) H 07/15/17 06:30 Est GFR ( Amer) TNP 07/15/17 06:30 Est GFR (Non-Af Amer) TNP 07/15/17 06:30 BUN/Creatinine Ratio 30.0 07/15/17 06:30 Glucose 160 mg/dL (70-105) H 07/15/17 06:30 POC Glucose 177 MG/DL (70 - 105) H 07/14/17 11:26 Whole Bld Lactic Acid 3.99 mmol/L (0.60-1.99) H* 07/05/17 13:00 Calcium 8.1 mg/dL (8.6-10.3) L 07/15/17 06:30 Phosphorus 1.5 mg/dL (2.5-5.0) L 07/02/17 05:20 Magnesium 1.7 mg/dL (1.9-2.7) L 07/02/17 05:20 Iron 21 07/03/17 05:48 TIBC 131 07/03/17 05:48 Iron Saturation 16 07/03/17 05:48 Unsaturated IBC 110 07/03/17 05:48 Ferritin 334 ng/mL (15-150) H 07/03/17 05:48 Total Bilirubin 0.5 mg/dL (0.3-1.0) 07/05/17 06:05 AST 16 U/L (13-39) 07/05/17 06:05 ALT 8 U/L (7-52) 07/05/17 06:05 Alkaline Phosphatase 66 U/L (34-104) 07/05/17 06:05 Troponin I 0.09 ng/mL (0.01-0.05) H* D 07/04/17 05:50 B-Natriuretic Peptide 215.0 pg/mL (5.0-100.0) H 07/01/17 14:10 Total Protein 5.6 gm/dL (6.0-8.3) L 07/05/17 06:05 Albumin 2.6 gm/dL (3.7-5.3) L 07/05/17 06:05 Globulin 3.0 gm/dL 07/05/17 06:05 Albumin/Globulin Ratio 0.9 (1.0-1.8) L 07/05/17 06:05 Triglycerides 107 mg/dL (<150) 07/04/17 05:50 Cholesterol 114 mg/dL (<200) 07/04/17 05:50 LDL Cholesterol Direct 59 mg/dL (75-193) L 07/04/17 05:50 HDL Cholesterol 31 mg/dL (23-92) 07/04/17 05:50 TSH 1.46 uIU/ml (0.34-5.60) 07/04/17 05:50 Urine Source CATH 07/05/17 18:30 Urine Color YELLOW 07/05/17 18:30 Urine Clarity CLOUDY (CLEAR) H 07/05/17 18:30 Urine pH 5.5 (4.6 - 8.0) 07/05/17 18:30 Ur Specific [place] 1.025 (1.005-1.030) 07/05/17 18:30 Urine Protein 30 mg/dL (NEGATIVE) H 07/05/17 18:30 Urine Glucose (UA) NEGATIVE mg/dL (NEGATIVE) 07/05/17 18:30 Urine Ketones TRACE mg/dL (NEGATIVE) 07/05/17 18:30 Urine Blood SMALL (NEGATIVE) H 07/05/17 18:30 Urine Nitrate NEGATIVE (NEGATIVE) 07/05/17 18:30 Urine Bilirubin NEGATIVE (NEGATIVE) 07/05/17 18:30 Urine Urobilinogen 0.2 E.U./dL (0.2 - 1.0) 07/05/17 18:30 Ur Leukocyte Esterase LARGE (NEGATIVE) H 07/05/17 18:30 Urine RBC 2-5 /hpf (0-5) 07/05/17 18:30 Urine WBC >100 /hpf (0-5) H 07/05/17 18:30 Ur Epithelial Cells FEW /lpf (FEW) 07/05/17 18:30 Urine Bacteria FEW /hpf (NONE SEEN) 07/05/17 18:30 Urine Yeast FEW /hpf (NONE SEEN) H 07/05/17 18:30 Stool Occult Blood POSITIVE (NEGATIVE) H 07/13/17 19:00 Vancomycin Trough 11.2 ug/mL (5-10) H 07/09/17 09:24 - Physical Exam Vitals and I&O: Vital Signs Temp 98.6 F 07/15/17 17:00 Pulse 90 07/15/17 17:00 Resp 28 07/15/17 17:00 BP 114/57 07/15/17 17:00 Pulse Ox 100 07/15/17 17:00 Intake & Output 07/14/17 07/15/17 07/15/17 18:59 06:59 18:59 Intake Total 1910.00 300 1950 Output Total 750 1050 1150 Balance 1160.00 -750 800 Weight (lbs) 67.302 kg 67.302 kg 67.784 kg Intake: Intake, IV Amount 980.00 100 1000 D5-0.45NS 1,000 ml @ 75 980.00 1000 mls/hr IV .[id number] [facility] Rx #:[id number] Levofloxacin 500mg/100mL 100 500 mg In 100 ml @ 100 mls/hr IV Q24HR [facility] Rx#: [id number] Tube Feeding 600 600 Other 330 200 350 Output: Urine 750 1050 1150 Other: # Bowel Movements 1 2 2 Stool Characteristics Soft Soft Soft Brown Brown Brown Green Green Green Weight Source Bedscale Bedscale Bedscale Active Medications: Current Medications Acetaminophen (Tylenol) 650 mg PO Q4H PRN PRN Reason: Fever > 101 Stop: 08/30/17 22:06 Last Admin: 07/14/17 11:31 Dose: 650 mg Albuterol/Ipratropium (Duoneb Neb) 3 ml HHN Q4HRT PRN PRN Reason: Wheezing Stop: 08/30/17 22:13 Albuterol/Ipratropium (Duoneb Neb) 3 ml HHN Q6HRT [facility] Stop: 08/31/17 00:59 Last Admin: 07/15/17 13:33 Dose: 3 ml Ascorbic Acid (Vitamin C) 500 mg PO DAILY [facility] Stop: 08/31/17 08:59 Last Admin: 07/15/17 08:51 Dose: 500 mg Baclofen (Lioresal) 5 mg PO TID [facility] Stop: 09/06/17 08:59 Last Admin: 07/15/17 13:48 Dose: 5 mg Bisacodyl (Dulcolax 10 Mg Supp) 10 mg RC HS PRN PRN Reason: BOWEL CARE MANAGEMENT Stop: 08/30/17 22:18 Budesonide (Pulmicort) 0.5 mg HHN BIDRT [facility] Stop: 08/31/17 18:59 Last Admin: 07/15/17 08:06 Dose: 0.5 mg Chlorhexidine Gluconate (Peridex) 15 ml MM 0800,2000 [facility] Stop: 09/03/17 19:59 Last Admin: 07/15/17 08:51 Dose: 15 ml Cyproheptadine HCl (Periactin) 4 mg PO BID [facility] Stop: 08/31/17 08:59 Last Admin: 07/15/17 17:07 Dose: 4 mg Docusate Sodium (Colace) 100 mg PO BID [facility] Stop: 08/31/17 08:59 Last Admin: 07/15/17 17:44 Dose: 100 mg Ferrous Sulfate (Iron) 325 mg PO BID [facility] Stop: 08/31/17 08:59 Last Admin: 07/15/17 17:07 Dose: 325 mg Folic Acid (Folate) 1 mg PO DAILY [facility] Stop: 08/31/17 08:59 Last Admin: 07/15/17 08:50 Dose: 1 mg Dextrose/Sodium Chloride (D5-0.45ns) 1,000 mls @ 75 mls/hr IV .[id number] [facility] Stop: 09/01/17 11:59 Last Admin: 07/15/17 11:00 Dose: 75 mls/hr Amiodarone HCl 450 mg/ Sodium (Chloride) 259 mls @ 0 mls/hr IV TITR [facility]; Titrate PRN Reason: Protocol Stop: 09/03/17 16:29 Last Titration: 07/06/17 08:00 Dose: 0 mg/min, 0 mls/hr Norepinephrine Bitartrate 4 mg (/ Sodium Chloride) 254 mls @ 0 mls/hr IV TITR [facility]; Titrate PRN Reason: Protocol Stop: 09/03/17 16:29 Levofloxacin (Levaquin Pb) 500 mg in 100 mls @ 100 mls/hr IV Q24HR [facility] Stop: 09/12/17 18:44 Last Admin: 07/15/17 17:45 Dose: 100 mls/hr Lactobacillus Rhamnosus (Culturelle 15b) 1 each PO DAILY [facility] Stop: 09/01/17 08:59 Last Admin: 07/15/17 08:51 Dose: 1 each Lactulose (Cephulac) 20 gm PO QID PRN PRN Reason: Constipation Stop: 08/30/17 22:18 Last Admin: 07/08/17 10:11 Dose: 20 gm Lorazepam (Ativan) 1 mg IVP Q4HR PRN; Protocol PRN Reason: Anxiety Stop: 09/04/17 08:31 Last Admin: 07/08/17 21:57 Dose: 1 mg Methylprednisolone Sodium Succinate (Solu-Medrol) 40 mg IVP Q8HR [facility] Stop: 09/09/17 20:59 Last Admin: 07/15/17 13:48 Dose: 40 mg Miscellaneous (Probiotic Screen) 1 ea MC PRN PRN PRN Reason: PROTOCOL Stop: 09/01/17 08:44 Multivitamins/Vitamin C (Theragran) 1 tab PO DAILY SHADI Stop: 08/31/17 08:59 Last Admin: 07/15/17 08:51 Dose: 1 tab Nicotine (Nicotine Transdermal System) 14 mg TD DAILY SHADI Stop: 09/04/17 08:59 Last Admin: 07/15/17 08:50 Dose: 14 mg Pantoprazole Sodium (Protonix) 40 mg IVP BID [facility] Stop: 09/13/17 08:59 Last Admin: 07/15/17 17:08 Dose: 40 mg General: Other (intubated, cachectic appearing, not resposive) HEENT: Atraumatic, Other (no dc) Neck: Supple, no JVD, no Thyromegaly Cardiovascular: Regular rate, Other (in A fib) Lungs: Other (Intubated, has bl rales) Abdomen: Bowel sounds, Soft, no Tender, no Hepatomegaly Extremities: Edema, no Clubbing Neurological: Other (Pt unable to participate in test) Skin: no Rash Psych/Mental Status: Other (no psychosis) - Procedures Procedures: Procedures Procedure Code Date INSERT EMERGENCY AIRWAY 81964 07/01/17 INSERTION OF ENDOTRACHEAL AIRWAY INTO TRACHEA, VIA OPENING [id number] 07/01/17 RESPIRATORY VENTILATION, GREATER THAN 96 CONSECUTIVE HOURS [id number] 07/01/17 VENT MGMT INPAT INIT 23289 07/01/17 Assessment/Plan - Problem List Patient Problems: All Active Problems WEAKESS AND POOR ORAL INTAKE (Acute) - Assessment Assessment: * Advanced metastatic cancer * poor functional status * Anemia likely of chronic disease * Respiratory failure s/p intubation 07/05 iron studies cw anemia of chronic disease. hgb better today without transfusion monitor hgb and transfuse for < 7.5 Poor prognosis Nutritional Asmnt/Malnutr-PDOC - Dietary Evaluation Malnutrition Findings (Please click <Entered> for more info): Nutritional Asmnt/Malnutrition Start: 07/03/17 13: 22 Text: Status: Complete Freq: Document 07/03/17 13:22 MMULJENN (Rec: 07/03/17 13:35 MMULHERN ARTEMIO [email or web address]) Nutritional Asmnt/Malnutrition Patient General Information Nutritional Screening Consult Diagnosis UTI, Failure to thrive, hypokalemia Pertinent Medical Hx/Surgical Hx CAD, HTN, COPD, Stage 4 lung cancer, peripheral neuropathy, constipation, GERD, anxiety, low back pain Subjective Information Consult received for Failure to Thrive. Current Diet Order/ Nutrition Support Regular diet, pureed with mechaical soft Patient / S.O Not Indicated Pertinent Medications Vitamin C, dulcolax, D5-0.45 NS @ 75 ml/hr, colace, iron, folate, lactulose, theragran Pertinent Labs (07/02) P 1.5, Mg 1.7, albumin 2.9 Nutritional Hx/Data Height 1.6 m Height (Calculated Centimeters) 160.0 Current Weight (lbs) 54.885 kg Weight (Calculated Kilograms) 54.9 Weight (Calculated Grams) 46953.7 [place] Body Weight 115 % [place] Body Weight 105 Body Mass Index (BMI) 21.4 Recent Weight Change No Weight Status Approriate GI Symptoms GI Symptoms None Last BM Prior to admission Difficult in: None Food Allergies No Cultural/Ethnic/Holiness Belief None indicated Skin Integrity/Comment: Pradeep 15 Current %PO Poor (25-49%) Estimated Nutritional Goals BEE in Kcals: Using Current wt Calories/Kcals/Kg 55kg CBW (25-30kcal/kg) Kcals Calculated 9964-0175 kcal/day Protein: Using Current wt Protein g/k-1.2 gm/kg Protein Calculated 55-65 gm/day Fluid: ml 2666-3621 ml/day (1 ml/kcal) Nutritional Problem 2. Problem Problem Inadequate oral intake related to Etiology poor appetite aeb Signs/Symptoms: meeting <75% of estimated nutrient needs 1. Problem Problem Altered nutrition related lab values related to Etiology electrolyte imbalance aeb Signs/Symptoms: P 1.5, Mg 1.7 Intervention/Recommendation Comments 1. Continue pureed diet as tolerated by patient. 2. RN To assist with feedings and encourage oral intake. 3. Consider adding Boost plus between meals to optimize calorie and protein intake. Expected Outcomes/Goals Expected Outcomes/Goals Oral intake to meet >75% of needs, weight stable, nutrition labs WNL F/U MR 07/06-
[2017-07-16] MEDS: D5-0.45NS 1,000 ML IV SCH ×2 (00:23→20:04)
[2017-07-16] MEDS: Albuterol/Ipratropium Neb 3 ML AERS HHN SCH ×4 (01:01→18:51)
[2017-07-16] MEDS: methylPREDNISolone SS 40 mg Vial IVP SCH ×3 (04:33→20:28)
[2017-07-16 04:51] LABS: HEMATOCRIT 29.4 % (41.0-60); HEMOGLOBIN 9.5 gm/dL (12-16); LYMPHOCYTE ABSOLUTE 0.9 Th/cmm (1.5-3.0); MANUAL DIFF REQUIRED? YES; MEAN CELL VOLUME 87.8 fl (81-100); MEAN CORPUSCULAR HEMOGLOBIN 28.5 pg (27.0-31.0); MEAN CORPUSCULAR HGB CONC 32.5 pg (28.0-36.0); MEAN PLATELET VOLUME 6.7 fl; MONOCYTE ABSOLUTE 0.8 Th/cmm (0.3-1.0); NEUTROPHILE ABSOLUTE 19.8 Th/cmm (1.8-8.0); PLATELET COUNT 414 Th/cmm (150-400); RED BLOOD COUNT 3.35 Mil/cmm (3.80-5.20); RED CELL DISTRIBUTION WIDTH 15.9 % (11.5-20.0)
[2017-07-16 05:11] LABS: WHITE BLOOD COUNT 21.5 Th/cmm (4.8-10.8)
[2017-07-16 05:14] LABS: TOTAL CELLS COUNTED 100
[2017-07-16 05:15] LABS: BAND NEUTROPHILE 4 % (0-10); BASOPHIL 0 % (0-3); EOSINOPHIL 0 % (0-5); LYMPHOCYTE 4 % (20-50); MONOCYTE 4 % (2-10); NEUTROPHILS 88 % (40-80); PLATELET ESTIMATE ADEQUATE (NORMAL); PLATELET MORPHOLOGY NORMAL (NORMAL)
[2017-07-16 06:04] LABS: ANION GAP 19.6 (7.0-16.0); BUN - UREA NITROGEN 43 mg/dL (7-25); CALCIUM SERUM 7.7 mg/dL (8.6-10.3); CARBON DIOXIDE 13.2 mEq/L (21.0-31.0); CHLORIDE 109 mEq/L (98-107); CREATININE - SERUM 1.4 mg/dL (0.6-1.2); GLUCOSE 161 mg/dL (70-105); POTASSIUM SERUM 5.8 mEq/L (3.5-5.1); SODIUM SERUM 136 mEq/L (136-145)
[2017-07-16] MEDS: Budesonide 0.5 Mg/2 mL Ud HHN SCH ×2 (07:19→18:51)
--- NOTE | 2017-07-16 08:29 | General Progress Note ---
Subjective - Review of Systems Service Date: 07/16/17 Events since last encounter: The patient is on CPAP and tolerating weaning without complication. WBC trended up. ID was notified and will adjust the abx. Patient is more awake and alert, she is understanding questioning Subjective: The patient is resting comfortably in bed. Does not appear to be in any acute pain or distress. Denies chest pain, coughin, abd pain, dysuria or falls. She remains intubated at this time Objective - Results Result Diagrams: 07/16/17 04:35 07/16/17 05:00 Recent Labs: Laboratory Last Values WBC 21.5 Th/cmm (4.8-10.8) H* 07/16/17 04:35 RBC 3.35 Mil/cmm (3.80-5.20) L 07/16/17 04:35 Hgb 9.5 gm/dL (12-16) L 07/16/17 04:35 Hct 29.4 % (41.0-60) L 07/16/17 04:35 MCV 87.8 fl (81-100) 07/16/17 04:35 MCH 28.5 pg (27.0-31.0) 07/16/17 04:35 MCHC Differential 32.5 pg (28.0-36.0) 07/16/17 04:35 RDW 15.9 % (11.5-20.0) 07/16/17 04:35 Plt Count 414 Th/cmm (150-400) H 07/16/17 04:35 MPV 6.7 fl 07/16/17 04:35 Neutrophils % 91.8 % (40.0-80.0) H 07/15/17 06:30 Band Neutrophils % 4 % (0-10) 07/16/17 04:35 Lymphocytes % 3.2 % (20.0-50.0) L 07/15/17 06:30 Monocytes % 4.3 % (2.0-10.0) 07/15/17 06:30 Eosinophils % 0.3 % (0.0-5.0) 07/15/17 06:30 Basophils % 0.4 % (0.0-2.0) 07/15/17 06:30 Neutrophils (Manual) 88 % (40-80) H 07/16/17 04:35 Lymphocytes 4 % (20-50) L 07/16/17 04:35 Monocytes 4 % (2-10) 07/16/17 04:35 Eosinophils 0 % (0-5) 07/16/17 04:35 Basophils 0 % (0-3) 07/16/17 04:35 Hypochromia 1+ 07/14/17 05:00 Platelet Estimate ADEQUATE (NORMAL) 07/16/17 04:35 Platelet Morphology NORMAL (NORMAL) 07/16/17 04:35 Polychromasia 1+ 07/14/17 05:00 RBC Morph Micro Appear NORMAL (NORMAL) 07/16/17 04:35 Specimen Source Arterial 07/08/17 11:40 Sample Site LB 07/08/17 11:40 pH 7.45 (7.35-7.45) 07/08/17 11:40 pCO2 30.0 mmHg (35.0-45.0) L 07/08/17 11:40 pO2 128.0 mmHg (80.0-100.0) H 07/08/17 11:40 HCO3 23.3 mEq/L (20.0-26.0) 07/08/17 11:40 Base Excess -2.2 mEq/L (-3.0-3.0) 07/08/17 11:40 O2 Saturation 99.0 % (92.0-100.0) 07/08/17 11:40 Darius Test NA 07/08/17 11:40 Vent Rate 14 07/08/17 11:40 Inspired O2 30 07/08/17 11:40 Tidal Volume 450 07/08/17 11:40 PEEP 5 07/08/17 11:40 Pressure (ins/psv/peep) NA 07/08/17 11:40 Critical Value E.GARCIA 07/08/17 11:40 Sodium 136 mEq/L (136-145) 07/16/17 05:00 Potassium 5.8 mEq/L (3.5-5.1) H 07/16/17 05:00 Chloride 109 mEq/L (98-107) H 07/16/17 05:00 Carbon Dioxide 13.2 mEq/L (21.0-31.0) L 07/16/17 05:00 Anion Gap 19.6 (7.0-16.0) H 07/16/17 05:00 BUN 43 mg/dL (7-25) H 07/16/17 05:00 Creatinine 1.4 mg/dL (0.6-1.2) H 07/16/17 05:00 Est GFR ( Amer) TNP 07/16/17 05:00 Est GFR (Non-Af Amer) TNP 07/16/17 05:00 BUN/Creatinine Ratio 30.7 07/16/17 05:00 Glucose 161 mg/dL (70-105) H 07/16/17 05:00 POC Glucose 177 MG/DL (70 - 105) H 07/14/17 11:26 Whole Bld Lactic Acid 3.99 mmol/L (0.60-1.99) H* 07/05/17 13:00 Calcium 7.7 mg/dL (8.6-10.3) L 07/16/17 05:00 Phosphorus 1.5 mg/dL (2.5-5.0) L 07/02/17 05:20 Magnesium 1.7 mg/dL (1.9-2.7) L 07/02/17 05:20 Iron 21 07/03/17 05:48 TIBC 131 07/03/17 05:48 Iron Saturation 16 07/03/17 05:48 Unsaturated IBC 110 07/03/17 05:48 Ferritin 334 ng/mL (15-150) H 07/03/17 05:48 Total Bilirubin 0.5 mg/dL (0.3-1.0) 07/05/17 06:05 AST 16 U/L (13-39) 07/05/17 06:05 ALT 8 U/L (7-52) 07/05/17 06:05 Alkaline Phosphatase 66 U/L (34-104) 07/05/17 06:05 Troponin I 0.09 ng/mL (0.01-0.05) H* D 07/04/17 05:50 B-Natriuretic Peptide 215.0 pg/mL (5.0-100.0) H 07/01/17 14:10 Total Protein 5.6 gm/dL (6.0-8.3) L 07/05/17 06:05 Albumin 2.6 gm/dL (3.7-5.3) L 07/05/17 06:05 Globulin 3.0 gm/dL 07/05/17 06:05 Albumin/Globulin Ratio 0.9 (1.0-1.8) L 07/05/17 06:05 Triglycerides 107 mg/dL (<150) 07/04/17 05:50 Cholesterol 114 mg/dL (<200) 07/04/17 05:50 LDL Cholesterol Direct 59 mg/dL (75-193) L 07/04/17 05:50 HDL Cholesterol 31 mg/dL (23-92) 07/04/17 05:50 TSH 1.46 uIU/ml (0.34-5.60) 07/04/17 05:50 Urine Source CATH 07/05/17 18:30 Urine Color YELLOW 07/05/17 18:30 Urine Clarity CLOUDY (CLEAR) H 07/05/17 18:30 Urine pH 5.5 (4.6 - 8.0) 07/05/17 18:30 Ur Specific [place] 1.025 (1.005-1.030) 07/05/17 18:30 Urine Protein 30 mg/dL (NEGATIVE) H 07/05/17 18:30 Urine Glucose (UA) NEGATIVE mg/dL (NEGATIVE) 07/05/17 18:30 Urine Ketones TRACE mg/dL (NEGATIVE) 07/05/17 18:30 Urine Blood SMALL (NEGATIVE) H 07/05/17 18:30 Urine Nitrate NEGATIVE (NEGATIVE) 07/05/17 18:30 Urine Bilirubin NEGATIVE (NEGATIVE) 07/05/17 18:30 Urine Urobilinogen 0.2 E.U./dL (0.2 - 1.0) 07/05/17 18:30 Ur Leukocyte Esterase LARGE (NEGATIVE) H 07/05/17 18:30 Urine RBC 2-5 /hpf (0-5) 07/05/17 18:30 Urine WBC >100 /hpf (0-5) H 07/05/17 18:30 Ur Epithelial Cells FEW /lpf (FEW) 07/05/17 18:30 Urine Bacteria FEW /hpf (NONE SEEN) 07/05/17 18:30 Urine Yeast FEW /hpf (NONE SEEN) H 07/05/17 18:30 Stool Occult Blood POSITIVE (NEGATIVE) H 07/13/17 19:00 Vancomycin Trough 11.2 ug/mL (5-10) H 07/09/17 09:24 - Physical Exam Vitals and I&O: Vital Signs Temp 99.9 F 07/16/17 04:00 Pulse 81 07/16/17 07:36 Resp 22 07/16/17 06:00 BP 146/66 07/16/17 06:00 Pulse Ox 100 07/16/17 07:36 Intake & Output 07/15/17 07/16/17 07/16/17 18:59 06:59 18:59 Intake Total 2050 1600 Output Total 1150 950 Balance 900 650 Weight (lbs) 67.784 kg 68.765 kg Intake: Intake, IV Amount 1100 1000 D5-0.45NS 1,000 ml @ 75 1000 1000 mls/hr IV .[id number] [facility] Rx #:[id number] Levofloxacin 500mg/100mL 100 500 mg In 100 ml @ 100 mls/hr IV Q24HR [facility] Rx#: [id number] Tube Feeding 600 600 Other 350 Output: Urine 1150 950 Other: # Bowel Movements 2 0 Stool Characteristics Soft Brown Green Weight Source Bedscale Bedscale Active Medications: Current Medications Acetaminophen (Tylenol) 650 mg PO Q4H PRN PRN Reason: Fever > 101 Stop: 08/30/17 22:06 Last Admin: 07/16/17 04:33 Dose: 650 mg Albuterol/Ipratropium (Duoneb Neb) 3 ml HHN Q4HRT PRN PRN Reason: Wheezing Stop: 08/30/17 22:13 Albuterol/Ipratropium (Duoneb Neb) 3 ml HHN Q6HRT [facility] Stop: 08/31/17 00:59 Last Admin: 07/16/17 07:19 Dose: 3 ml Ascorbic Acid (Vitamin C) 500 mg PO DAILY [facility] Stop: 08/31/17 08:59 Last Admin: 07/15/17 08:51 Dose: 500 mg Baclofen (Lioresal) 5 mg PO TID [facility] Stop: 09/06/17 08:59 Last Admin: 07/15/17 21:22 Dose: 5 mg Bisacodyl (Dulcolax 10 Mg Supp) 10 mg RC HS PRN PRN Reason: BOWEL CARE MANAGEMENT Stop: 08/30/17 22:18 Budesonide (Pulmicort) 0.5 mg HHN BIDRT [facility] Stop: 08/31/17 18:59 Last Admin: 07/16/17 07:19 Dose: 0.5 mg Chlorhexidine Gluconate (Peridex) 15 ml MM 0800,1999 [facility] Stop: 09/03/17 19:59 Last Admin: 07/15/17 19:43 Dose: 15 ml Cyproheptadine HCl (Periactin) 4 mg PO BID [facility] Stop: 08/31/17 08:59 Last Admin: 07/15/17 17:07 Dose: 4 mg Docusate Sodium (Colace) 100 mg PO BID [facility] Stop: 08/31/17 08:59 Last Admin: 07/15/17 17:44 Dose: 100 mg Ferrous Sulfate (Iron) 325 mg PO BID [facility] Stop: 08/31/17 08:59 Last Admin: 07/15/17 17:07 Dose: 325 mg Folic Acid (Folate) 1 mg PO DAILY [facility] Stop: 08/31/17 08:59 Last Admin: 07/15/17 08:50 Dose: 1 mg Dextrose/Sodium Chloride (D5-0.45ns) 1,000 mls @ 75 mls/hr IV .[id number] [facility] Stop: 09/01/17 11:59 Last Admin: 07/16/17 00:23 Dose: 75 mls/hr Amiodarone HCl 450 mg/ Sodium (Chloride) 259 mls @ 0 mls/hr IV TITR [facility]; Titrate PRN Reason: Protocol Stop: 09/03/17 16:29 Last Titration: 07/06/17 08:00 Dose: 0 mg/min, 0 mls/hr Norepinephrine Bitartrate 4 mg (/ Sodium Chloride) 254 mls @ 0 mls/hr IV TITR [facility]; Titrate PRN Reason: Protocol Stop: 09/03/17 16:29 Levofloxacin (Levaquin Pb) 500 mg in 100 mls @ 100 mls/hr IV Q24HR [facility] Stop: 09/12/17 18:44 Last Infusion: 07/15/17 18:45 Dose: Infused Lactobacillus Rhamnosus (Culturelle 15b) 1 each PO DAILY [facility] Stop: 09/01/17 08:59 Last Admin: 07/15/17 08:51 Dose: 1 each Lactulose (Cephulac) 20 gm PO QID PRN PRN Reason: Constipation Stop: 08/30/17 22:18 Last Admin: 07/08/17 10:11 Dose: 20 gm Lorazepam (Ativan) 1 mg IVP Q4HR PRN; Protocol PRN Reason: Anxiety Stop: 09/04/17 08:31 Last Admin: 07/08/17 21:57 Dose: 1 mg Methylprednisolone Sodium Succinate (Solu-Medrol) 40 mg IVP Q8HR [facility] Stop: 09/09/17 20:59 Last Admin: 07/16/17 04:33 Dose: 40 mg Miscellaneous (Probiotic Screen) 1 ea MC PRN PRN PRN Reason: PROTOCOL Stop: 09/01/17 08:44 Multivitamins/Vitamin C (Theragran) 1 tab PO DAILY [facility] Stop: 08/31/17 08:59 Last Admin: 07/15/17 08:51 Dose: 1 tab Nicotine (Nicotine Transdermal System) 14 mg TD DAILY [facility] Stop: 09/04/17 08:59 Last Admin: 07/15/17 08:50 Dose: 14 mg Pantoprazole Sodium (Protonix) 40 mg IVP BID [facility] Stop: 09/13/17 08:59 Last Admin: 07/15/17 17:08 Dose: 40 mg General: Alert, Other (intubated, cachectic appearing) HEENT: Atraumatic, Other (et in place) Neck: Supple, no JVD, no Thyromegaly Cardiovascular: Regular rate, Other (in A fib) Lungs: Other (Intubated, has bl rales) Abdomen: Bowel sounds, Soft, no Tender, no Hepatomegaly Extremities: Edema, no Clubbing Neurological: Other (Pt unable to participate in test) Skin: no Rash Psych/Mental Status: Other (no psychosis) - Procedures Procedures: Procedures Procedure Code Date INSERT EMERGENCY AIRWAY 84224 07/01/17 INSERTION OF ENDOTRACHEAL AIRWAY INTO [facility]HE[facility], VIA OPENING [id number] 07/01/17 RESPIRATORY VENTILATION, GREATER THAN 96 CONSECUTIVE HOURS [id number] 07/01/17 VENT MGMT INPAT INIT DAY [id number] 07/01/17 Assessment/Plan - Problem List Patient Problems: All Active Problems WEAKESS AND POOR ORAL INTAKE (Acute) - Assessment Assessment: Current Active Problems Problem Status Onset WEAKESS AND POOR ORAL INTAKE Acute Septic shock A fib with RVR Fail to thrive Stage 4 lung ca Sepsis due to E Coli UTI ME Ch pain syn Anemia of ch ill Hypernatremia Hypokalemia Type 2 WA A fib - Plan Plan: Pt holds a poor progonosis. Been trying to communicate poor prognosis to the son. He wants "everything done. " Cardio, Pulm, and Heme Onc seeing pt, all of whom agree with comfort care/ hospice. Continue abx Has been on Amiodarone and Levphed drip in ICU-now off as off 07/06/17. Intubated on 07/05/17. Elec corrected. I's and O's reviewed. Vent settings reviewed. HGB increased to 9.5. Continue to monitor for bleeding or decreased hgb Again, advised son of the grave prognosis and the fact that pt has poor quality of life and it will not improve. He still wants "everything done." As of 07/13/17, she's back on vent as she could not tolerate SIMV. After being back on AC mode, she's been tolerating SIMV since 07/13/17. 07/16 ID will adjust the abx due to WBC trending upwards. Tolerating CPAP without any acute desaturations. Poor prognosis Nutritional Asmnt/Malnutr-PDOC - Dietary Evaluation Malnutrition Findings (Please click <Entered> for more info): Nutritional Asmnt/Malnutrition Start: 07/03/17 13: 22 Text: Status: Complete Freq: Document 07/03/17 13:22 MMKENY (Rec: 07/03/17 13:35 [email or web address] ELLER FN) Nutritional Asmnt/Malnutrition Patient General Information Nutritional Screening Consult Diagnosis UTI, Failure to thrive, hypokalemia Pertinent Medical Hx/Surgical Hx CAD, HTN, COPD, Stage 4 lung cancer, peripheral neuropathy, constipation, GERD, anxiety, low back pain Subjective Information Consult received for Failure to Thrive. Current Diet Order/ Nutrition Support Regular diet, pureed with mechaical soft Patient / S.O Not Indicated Pertinent Medications Vitamin C, dulcolax, D5-0.45 NS @ 75 ml/hr, colace, iron, folate, lactulose, theragran Pertinent Labs (07/02) P 1.5, Mg 1.7, albumin 2.9 Nutritional Hx/Data Height 1.6 m Height (Calculated Centimeters) 160.0 Current Weight (lbs) 54.885 kg Weight (Calculated Kilograms) 54.9 Weight (Calculated Grams) 82017.7 [place] Body Weight 115 % [place] Body Weight 105 Body Mass Index (BMI) 21.4 Recent Weight Change No Weight Status Approriate GI Symptoms GI Symptoms None Last BM Prior to admission Difficult in: None Food Allergies No Cultural/Ethnic/Scientologist Belief None indicated Skin Integrity/Comment: Pradeep Cook Current %PO Poor (25-49%) Estimated Nutritional Goals BEE in Kcals: Using Current wt Calories/Kcals/Kg 55kg CBW (25-30kcal/kg) Kcals Calculated 2884-1007 kcal/day Protein: Using Current wt Protein g/k-1.2 gm/kg Protein Calculated 55-65 gm/day Fluid: ml 3067-5133 ml/day (1 ml/kcal) Nutritional Problem 2. Problem Problem Inadequate oral intake related to Etiology poor appetite aeb Signs/Symptoms: meeting <75% of estimated nutrient needs 1. Problem Problem Altered nutrition related lab values related to Etiology electrolyte imbalance aeb Signs/Symptoms: P 1.5, Mg 1.7 Intervention/Recommendation Comments 1. Continue pureed diet as tolerated by patient. 2. RN To assist with feedings and encourage oral intake. 3. Consider adding Boost plus between meals to optimize calorie and protein intake. Expected Outcomes/Goals Expected Outcomes/Goals Oral intake to meet >75% of needs, weight stable, nutrition labs WNL F/U MR 07/06-
--- NOTE | 2017-07-16 09:42 | Diagnostic Imaging Report ---
Exam: Chest portable HISTORY: Shortness of breath. Findings: Portable examination of the chest at 0923 hours reviewed and compared to prior study of 07/14/2017. The study again demonstrates tubes and lines unchanged position. Mediastinal structures midline the heart is not enlarged the costophrenic angles demonstrates left-sided blunted with pleural thickening. COPD changes are noted. The visualized bony thorax intact the aortic arch calcified. IMPRESSION: COPD changes, left pleural thickening.
[2017-07-16] MEDS: Ferrous Sulfate 325 MG TAB PO SCH ×2 (09:46→16:16)
[2017-07-16] MEDS: Lactobacillus Rhamnosus GG 15 Billion CFU CAP.SPRINK PO SCH (09:46)
[2017-07-16] MEDS: Multivitamin Tab PO SCH (09:46)
[2017-07-16] MEDS: Chlorhexidine Gluconate 0.12% 15mL Mouthwash MM SCH ×2 (09:47→20:29)
[2017-07-16] MEDS: Cyproheptadine 4 mg Tab PO SCH ×2 (09:48→16:16)
[2017-07-16] MEDS: Nicotine 14 mg/24 hr Tdm TD SCH (09:48)
[2017-07-16 15:10] LABS: pH 7.44 (7.35-7.45)
[2017-07-16 15:11] LABS: ALLEN TEST YES
--- NOTE | 2017-07-16 17:28 | Infectious Disease Prog Note ---
Infectious Disease Subjective - Review of Systems Service Date: 07/16/17 Subjective: There is no new change. Patient remains intubated orally, on the ventilator support. No fever, worsening of leukocytosis is improving. Infectious Disease Objective - Results Result Diagrams: 07/16/17 04:35 07/16/17 05:00 Recent Labs: Laboratory Last Values WBC 21.5 Th/cmm (4.8-10.8) H* 07/16/17 04:35 RBC 3.35 Mil/cmm (3.80-5.20) L 07/16/17 04:35 Hgb 9.5 gm/dL (12-16) L 07/16/17 04:35 Hct 29.4 % (41.0-60) L 07/16/17 04:35 MCV 87.8 fl (81-100) 07/16/17 04:35 MCH 28.5 pg (27.0-31.0) 07/16/17 04:35 MCHC Differential 32.5 pg (28.0-36.0) 07/16/17 04:35 RDW 15.9 % (11.5-20.0) 07/16/17 04:35 Plt Count 414 Th/cmm (150-400) H 07/16/17 04:35 MPV 6.7 fl 07/16/17 04:35 Neutrophils % 91.8 % (40.0-80.0) H 07/15/17 06:30 Band Neutrophils % 4 % (0-10) 07/16/17 04:35 Lymphocytes % 3.2 % (20.0-50.0) L 07/15/17 06:30 Monocytes % 4.3 % (2.0-10.0) 07/15/17 06:30 Eosinophils % 0.3 % (0.0-5.0) 07/15/17 06:30 Basophils % 0.4 % (0.0-2.0) 07/15/17 06:30 Neutrophils (Manual) 88 % (40-80) H 07/16/17 04:35 Lymphocytes 4 % (20-50) L 07/16/17 04:35 Monocytes 4 % (2-10) 07/16/17 04:35 Eosinophils 0 % (0-5) 07/16/17 04:35 Basophils 0 % (0-3) 07/16/17 04:35 Hypochromia 1+ 07/14/17 05:00 Platelet Estimate ADEQUATE (NORMAL) 07/16/17 04:35 Platelet Morphology NORMAL (NORMAL) 07/16/17 04:35 Polychromasia 1+ 07/14/17 05:00 RBC Morph Micro Appear NORMAL (NORMAL) 07/16/17 04:35 Specimen Source Arterial 07/16/17 15:00 Sample Site Right Radial 07/16/17 15:00 pH 7.44 (7.35-7.45) 07/16/17 15:00 pCO2 33.0 mmHg (35.0-45.0) L 07/16/17 15:00 pO2 257.0 mmHg (80.0-100.0) H 07/16/17 15:00 HCO3 24.1 mEq/L (20.0-26.0) 07/16/17 15:00 Base Excess -1.1 mEq/L (-3.0-3.0) 07/16/17 15:00 O2 Saturation 100.0 % (92.0-100.0) 07/16/17 15:00 Darius Test YES 07/16/17 15:00 Vent Rate NA 07/16/17 15:00 Inspired O2 40 07/16/17 15:00 Tidal Volume NA 07/16/17 15:00 PEEP NA 07/16/17 15:00 Pressure (ins/psv/peep) NA 07/16/17 15:00 Critical Value ABDOULAYE ROSADO 07/16/17 15:00 Sodium 136 mEq/L (136-145) 07/16/17 05:00 Potassium 5.8 mEq/L (3.5-5.1) H 07/16/17 05:00 Chloride 109 mEq/L (98-107) H 07/16/17 05:00 Carbon Dioxide 13.2 mEq/L (21.0-31.0) L 07/16/17 05:00 Anion Gap 19.6 (7.0-16.0) H 07/16/17 05:00 BUN 43 mg/dL (7-25) H 07/16/17 05:00 Creatinine 1.4 mg/dL (0.6-1.2) H 07/16/17 05:00 Est GFR ( Amer) TNP 07/16/17 05:00 Est GFR (Non-Af Amer) TNP 07/16/17 05:00 BUN/Creatinine Ratio 30.7 07/16/17 05:00 Glucose 161 mg/dL (70-105) H 07/16/17 05:00 POC Glucose 177 MG/DL (70 - 105) H 07/14/17 11:26 Whole Bld Lactic Acid 3.99 mmol/L (0.60-1.99) H* 07/05/17 13:00 Calcium 7.7 mg/dL (8.6-10.3) L 07/16/17 05:00 Phosphorus 1.5 mg/dL (2.5-5.0) L 07/02/17 05:20 Magnesium 1.7 mg/dL (1.9-2.7) L 07/02/17 05:20 Iron 21 07/03/17 05:48 TIBC 131 07/03/17 05:48 Iron Saturation 16 07/03/17 05:48 Unsaturated IBC 110 07/03/17 05:48 Ferritin 334 ng/mL (15-150) H 07/03/17 05:48 Total Bilirubin 0.5 mg/dL (0.3-1.0) 07/05/17 06:05 AST 16 U/L (13-39) 07/05/17 06:05 ALT 8 U/L (7-52) 07/05/17 06:05 Alkaline Phosphatase 66 U/L (34-104) 07/05/17 06:05 Troponin I 0.09 ng/mL (0.01-0.05) H* D 07/04/17 05:50 B-Natriuretic Peptide 215.0 pg/mL (5.0-100.0) H 07/01/17 14:10 Total Protein 5.6 gm/dL (6.0-8.3) L 07/05/17 06:05 Albumin 2.6 gm/dL (3.7-5.3) L 07/05/17 06:05 Globulin 3.0 gm/dL 07/05/17 06:05 Albumin/Globulin Ratio 0.9 (1.0-1.8) L 07/05/17 06:05 Triglycerides 107 mg/dL (<150) 07/04/17 05:50 Cholesterol 114 mg/dL (<200) 07/04/17 05:50 LDL Cholesterol Direct 59 mg/dL (75-193) L 07/04/17 05:50 HDL Cholesterol 31 mg/dL (23-92) 07/04/17 05:50 TSH 1.46 uIU/ml (0.34-5.60) 07/04/17 05:50 Urine Source CATH 07/05/17 18:30 Urine Color YELLOW 07/05/17 18:30 Urine Clarity CLOUDY (CLEAR) H 07/05/17 18:30 Urine pH 5.5 (4.6 - 8.0) 07/05/17 18:30 Ur Specific [place] 1.025 (1.005-1.030) 07/05/17 18:30 Urine Protein 30 mg/dL (NEGATIVE) H 07/05/17 18:30 Urine Glucose (UA) NEGATIVE mg/dL (NEGATIVE) 07/05/17 18:30 Urine Ketones TRACE mg/dL (NEGATIVE) 07/05/17 18:30 Urine Blood SMALL (NEGATIVE) H 07/05/17 18:30 Urine Nitrate NEGATIVE (NEGATIVE) 07/05/17 18:30 Urine Bilirubin NEGATIVE (NEGATIVE) 07/05/17 18:30 Urine Urobilinogen 0.2 E.U./dL (0.2 - 1.0) 07/05/17 18:30 Ur Leukocyte Esterase LARGE (NEGATIVE) H 07/05/17 18:30 Urine RBC 2-5 /hpf (0-5) 07/05/17 18:30 Urine WBC >100 /hpf (0-5) H 07/05/17 18:30 Ur Epithelial Cells FEW /lpf (FEW) 07/05/17 18:30 Urine Bacteria FEW /hpf (NONE SEEN) 07/05/17 18:30 Urine Yeast FEW /hpf (NONE SEEN) H 07/05/17 18:30 Stool Occult Blood POSITIVE (NEGATIVE) H 07/13/17 19:00 Vancomycin Trough 11.2 ug/mL (5-10) H 07/09/17 09:24 - Physical Exam Vitals and I&O: Vital Signs Temp 99 F 07/16/17 16:00 Pulse 89 07/16/17 17:08 Resp 28 07/16/17 17:00 BP 127/49 07/16/17 17:00 Pulse Ox 100 07/16/17 17:08 Intake & Output 07/15/17 07/16/17 07/16/17 18:59 06:59 18:59 Intake Total 2050 1600 Output Total 1150 950 Balance 900 650 Weight (lbs) 67.784 kg 68.765 kg Intake: Intake, IV Amount 1100 1000 D5-0.45NS 1,000 ml @ 75 1000 1000 mls/hr IV .[id number] [facility] Rx #:[id number] Levofloxacin 500mg/100mL 100 500 mg In 100 ml @ 100 mls/hr IV Q24HR [facility] Rx#: [id number] Tube Feeding 600 600 Other 350 Output: Urine 1150 950 Other: # Bowel Movements 2 0 Stool Characteristics Soft Brown Green Weight Source Bedscale Bedscale Active Medications: Current Medications Acetaminophen (Tylenol) 650 mg PO Q4H PRN PRN Reason: Fever > 101 Stop: 08/30/17 22:06 Last Admin: 07/16/17 04:33 Dose: 650 mg Albuterol/Ipratropium (Duoneb Neb) 3 ml HHN Q4HRT PRN PRN Reason: Wheezing Stop: 08/30/17 22:13 Albuterol/Ipratropium (Duoneb Neb) 3 ml HHN Q6HRT [facility] Stop: 08/31/17 00:59 Last Admin: 07/16/17 13:02 Dose: 3 ml Ascorbic Acid (Vitamin C) 500 mg PO DAILY [facility] Stop: 08/31/17 08:59 Last Admin: 07/16/17 09:46 Dose: 500 mg Baclofen (Lioresal) 5 mg PO TID [facility] Stop: 09/06/17 08:59 Last Admin: 07/16/17 14:00 Dose: 5 mg Bisacodyl (Dulcolax 10 Mg Supp) 10 mg RC HS PRN PRN Reason: BOWEL CARE MANAGEMENT Stop: 08/30/17 22:18 Budesonide (Pulmicort) 0.5 mg HHN BIDRT [facility] Stop: 08/31/17 18:59 Last Admin: 07/16/17 07:19 Dose: 0.5 mg Chlorhexidine Gluconate (Peridex) 15 ml MM 0800,2000 [facility] Stop: 09/03/17 19:59 Last Admin: 07/16/17 09:47 Dose: 15 ml Cyproheptadine HCl (Periactin) 4 mg PO BID [facility] Stop: 08/31/17 08:59 Last Admin: 07/16/17 16:16 Dose: 4 mg Docusate Sodium (Colace) 100 mg PO BID [facility] Stop: 08/31/17 08:59 Last Admin: 07/16/17 16:19 Dose: Not Given Ferrous Sulfate (Iron) 325 mg PO BID [facility] Stop: 08/31/17 08:59 Last Admin: 07/16/17 16:16 Dose: 325 mg Folic Acid (Folate) 1 mg PO DAILY [facility] Stop: 08/31/17 08:59 Last Admin: 07/16/17 09:46 Dose: 1 mg Dextrose/Sodium Chloride (D5-0.45ns) 1,000 mls @ 75 mls/hr IV .[id number] [facility] Stop: 09/01/17 11:59 Last Admin: 07/16/17 00:23 Dose: 75 mls/hr Norepinephrine Bitartrate 4 mg (/ Sodium Chloride) 254 mls @ 0 mls/hr IV TITR [facility]; Titrate PRN Reason: Protocol Stop: 09/03/17 16:29 Levofloxacin (Levaquin Pb) 500 mg in 100 mls @ 100 mls/hr IV Q24HR [facility] Stop: 09/12/17 18:44 Last Infusion: 07/15/17 18:45 Dose: Infused Lactobacillus Rhamnosus (Culturelle 15b) 1 each PO DAILY [facility] Stop: 09/01/17 08:59 Last Admin: 07/16/17 09:46 Dose: 1 each Lactulose (Cephulac) 20 gm PO QID PRN PRN Reason: Constipation Stop: 08/30/17 22:18 Last Admin: 07/08/17 10:11 Dose: 20 gm Lorazepam (Ativan) 1 mg IVP Q4HR PRN; Protocol PRN Reason: Anxiety Stop: 09/04/17 08:31 Last Admin: 07/08/17 21:57 Dose: 1 mg Methylprednisolone Sodium Succinate (Solu-Medrol) 40 mg IVP Q8HR [facility] Stop: 09/09/17 20:59 Last Admin: 07/16/17 14:00 Dose: 40 mg Miscellaneous (Probiotic Screen) 1 ea MC PRN PRN PRN Reason: PROTOCOL Stop: 09/01/17 08:44 Multivitamins/Vitamin C (Theragran) 1 tab PO DAILY [facility] Stop: 08/31/17 08:59 Last Admin: 07/16/17 09:46 Dose: 1 tab Nicotine (Nicotine Transdermal System) 14 mg TD DAILY [facility] Stop: 09/04/17 08:59 Last Admin: 07/16/17 09:48 Dose: 14 mg Pantoprazole Sodium (Protonix) 40 mg IVP BID [facility] Stop: 09/13/17 08:59 Last Admin: 07/16/17 16:17 Dose: 40 mg General: no acute distress, cachectic HEENT: atraumatic, normocephalic, PERRLA, EOMI, moist mucous membrane Neck: supple, no thyromegaly, no lymphadenopathy Cardiovascular: S1S2, regular Lungs: clear to percussion, crackles, rhonchi Abdomen: soft, no tender, no distended, no mass Extremities: no cyanosis, no clubbing Neurological: no awake, no alert - Procedures Procedures: Procedures Procedure Code Date INSERT EMERGENCY AIRWAY 29303 07/01/17 INSERTION OF ENDOTRACHEAL AIRWAY INTO [place], VIA OPENING [id number] 07/01/17 RESPIRATORY VENTILATION, GREATER THAN 96 CONSECUTIVE HOURS [id number] 07/01/17 VENT MGMT INPAT INIT DAY 62004 07/01/17 Infectious Disease Assmt/Plan - Problem List Patient Problems: All Active Problems WEAKESS AND POOR ORAL INTAKE (Acute) - Assessment Assessment: 1. Leukocytosis. Fever, sepsis. 2. Pneumonia. 3. Stage IV lung CA. 4. Protein calorie malnutrion, 5. VDRF. 6. ALTERED MENTAL STATUS. - Plan Plan: Change levaquin to zosyn and vacno. Poor prognosis. Nutritional Asmnt/Malnutr-PDOC - Dietary Evaluation Malnutrition Findings (Please click <Entered> for more info): Nutritional Asmnt/Malnutrition Start: 07/03/17 13: 22 Text: Status: Complete Freq: Document 07/03/17 13:22 URBAN (Rec: 07/03/17 13:35 URBAN ULLOA FN) Nutritional Asmnt/Malnutrition Patient General Information Nutritional Screening Consult Diagnosis UTI, Failure to thrive, hypokalemia Pertinent Medical Hx/Surgical Hx CAD, HTN, COPD, Stage 4 lung cancer, peripheral neuropathy, constipation, GERD, anxiety, low back pain Subjective Information Consult received for Failure to Thrive. Current Diet Order/ Nutrition Support Regular diet, pureed with mechaical soft Patient / S.O Not Indicated Pertinent Medications Vitamin C, dulcolax, D5-0.45 NS @ 75 ml/hr, colace, iron, folate, lactulose, theragran Pertinent Labs (07/02) P 1.5, Mg 1.7, albumin 2.9 Nutritional Hx/Data Height 1.6 m Height (Calculated Centimeters) 160.0 Current Weight (lbs) 54.885 kg Weight (Calculated Kilograms) 54.9 Weight (Calculated Grams) 38202.7 [place] Body Weight 115 % [place] Body Weight 105 Body Mass Index (BMI) 21.4 Recent Weight Change No Weight Status Approriate GI Symptoms GI Symptoms None Last BM Prior to admission Difficult in: None Food Allergies No Cultural/Ethnic/Cheondoism Belief None indicated Skin Integrity/Comment: Pradeep 15 Current %PO Poor (25-49%) Estimated Nutritional Goals BEE in Kcals: Using Current wt Calories/Kcals/Kg 55kg CBW (25-30kcal/kg) Kcals Calculated 1847-9339 kcal/day Protein: Using Current wt Protein g/k-1.2 gm/kg Protein Calculated 55-65 gm/day Fluid: ml 1228-4307 ml/day (1 ml/kcal) Nutritional Problem 2. Problem Problem Inadequate oral intake related to Etiology poor appetite aeb Signs/Symptoms: meeting <75% of estimated nutrient needs 1. Problem Problem Altered nutrition related lab values related to Etiology electrolyte imbalance aeb Signs/Symptoms: P 1.5, Mg 1.7 Intervention/Recommendation Comments 1. Continue pureed diet as tolerated by patient. 2. RN To assist with feedings and encourage oral intake. 3. Consider adding Boost plus between meals to optimize calorie and protein intake. Expected Outcomes/Goals Expected Outcomes/Goals Oral intake to meet >75% of needs, weight stable, nutrition labs WNL F/U MR 07/06-
--- NOTE | 2017-07-16 18:04 | General Progress Note ---
Subjective - Review of Systems Service Date: 07/16/17 Subjective: unresponsive, opens eyes Objective - Results Result Diagrams: 07/16/17 04:35 07/16/17 05:00 Recent Labs: Laboratory Last Values WBC 21.5 Th/cmm (4.8-10.8) H* 07/16/17 04:35 RBC 3.35 Mil/cmm (3.80-5.20) L 07/16/17 04:35 Hgb 9.5 gm/dL (12-16) L 07/16/17 04:35 Hct 29.4 % (41.0-60) L 07/16/17 04:35 MCV 87.8 fl (81-100) 07/16/17 04:35 MCH 28.5 pg (27.0-31.0) 07/16/17 04:35 MCHC Differential 32.5 pg (28.0-36.0) 07/16/17 04:35 RDW 15.9 % (11.5-20.0) 07/16/17 04:35 Plt Count 414 Th/cmm (150-400) H 07/16/17 04:35 MPV 6.7 fl 07/16/17 04:35 Neutrophils % 91.8 % (40.0-80.0) H 07/15/17 06:30 Band Neutrophils % 4 % (0-10) 07/16/17 04:35 Lymphocytes % 3.2 % (20.0-50.0) L 07/15/17 06:30 Monocytes % 4.3 % (2.0-10.0) 07/15/17 06:30 Eosinophils % 0.3 % (0.0-5.0) 07/15/17 06:30 Basophils % 0.4 % (0.0-2.0) 07/15/17 06:30 Neutrophils (Manual) 88 % (40-80) H 07/16/17 04:35 Lymphocytes 4 % (20-50) L 07/16/17 04:35 Monocytes 4 % (2-10) 07/16/17 04:35 Eosinophils 0 % (0-5) 07/16/17 04:35 Basophils 0 % (0-3) 07/16/17 04:35 Hypochromia 1+ 07/14/17 05:00 Platelet Estimate ADEQUATE (NORMAL) 07/16/17 04:35 Platelet Morphology NORMAL (NORMAL) 07/16/17 04:35 Polychromasia 1+ 07/14/17 05:00 RBC Morph Micro Appear NORMAL (NORMAL) 07/16/17 04:35 Specimen Source Arterial 07/16/17 15:00 Sample Site Right Radial 07/16/17 15:00 pH 7.44 (7.35-7.45) 07/16/17 15:00 pCO2 33.0 mmHg (35.0-45.0) L 07/16/17 15:00 pO2 257.0 mmHg (80.0-100.0) H 07/16/17 15:00 HCO3 24.1 mEq/L (20.0-26.0) 07/16/17 15:00 Base Excess -1.1 mEq/L (-3.0-3.0) 07/16/17 15:00 O2 Saturation 100.0 % (92.0-100.0) 07/16/17 15:00 Darius Test YES 07/16/17 15:00 Vent Rate NA 07/16/17 15:00 Inspired O2 40 07/16/17 15:00 Tidal Volume NA 07/16/17 15:00 PEEP NA 07/16/17 15:00 Pressure (ins/psv/peep) NA 07/16/17 15:00 Critical Value ABDOULAYE ROSADO 07/16/17 15:00 Sodium 136 mEq/L (136-145) 07/16/17 05:00 Potassium 5.8 mEq/L (3.5-5.1) H 07/16/17 05:00 Chloride 109 mEq/L (98-107) H 07/16/17 05:00 Carbon Dioxide 13.2 mEq/L (21.0-31.0) L 07/16/17 05:00 Anion Gap 19.6 (7.0-16.0) H 07/16/17 05:00 BUN 43 mg/dL (7-25) H 07/16/17 05:00 Creatinine 1.4 mg/dL (0.6-1.2) H 07/16/17 05:00 Est GFR ( Amer) TNP 07/16/17 05:00 Est GFR (Non-Af Amer) TNP 07/16/17 05:00 BUN/Creatinine Ratio 30.7 07/16/17 05:00 Glucose 161 mg/dL (70-105) H 07/16/17 05:00 POC Glucose 177 MG/DL (70 - 105) H 07/14/17 11:26 Whole Bld Lactic Acid 3.99 mmol/L (0.60-1.99) H* 07/05/17 13:00 Calcium 7.7 mg/dL (8.6-10.3) L 07/16/17 05:00 Phosphorus 1.5 mg/dL (2.5-5.0) L 07/02/17 05:20 Magnesium 1.7 mg/dL (1.9-2.7) L 07/02/17 05:20 Iron 21 07/03/17 05:48 TIBC 131 07/03/17 05:48 Iron Saturation 16 07/03/17 05:48 Unsaturated IBC 110 07/03/17 05:48 Ferritin 334 ng/mL (15-150) H 07/03/17 05:48 Total Bilirubin 0.5 mg/dL (0.3-1.0) 07/05/17 06:05 AST 16 U/L (13-39) 07/05/17 06:05 ALT 8 U/L (7-52) 07/05/17 06:05 Alkaline Phosphatase 66 U/L (34-104) 07/05/17 06:05 Troponin I 0.09 ng/mL (0.01-0.05) H* D 07/04/17 05:50 B-Natriuretic Peptide 215.0 pg/mL (5.0-100.0) H 07/01/17 14:10 Total Protein 5.6 gm/dL (6.0-8.3) L 07/05/17 06:05 Albumin 2.6 gm/dL (3.7-5.3) L 07/05/17 06:05 Globulin 3.0 gm/dL 07/05/17 06:05 Albumin/Globulin Ratio 0.9 (1.0-1.8) L 07/05/17 06:05 Triglycerides 107 mg/dL (<150) 07/04/17 05:50 Cholesterol 114 mg/dL (<200) 07/04/17 05:50 LDL Cholesterol Direct 59 mg/dL (75-193) L 07/04/17 05:50 HDL Cholesterol 31 mg/dL (23-92) 07/04/17 05:50 TSH 1.46 uIU/ml (0.34-5.60) 07/04/17 05:50 Urine Source CATH 07/05/17 18:30 Urine Color YELLOW 07/05/17 18:30 Urine Clarity CLOUDY (CLEAR) H 07/05/17 18:30 Urine pH 5.5 (4.6 - 8.0) 07/05/17 18:30 Ur Specific [place] 1.025 (1.005-1.030) 07/05/17 18:30 Urine Protein 30 mg/dL (NEGATIVE) H 07/05/17 18:30 Urine Glucose (UA) NEGATIVE mg/dL (NEGATIVE) 07/05/17 18:30 Urine Ketones TRACE mg/dL (NEGATIVE) 07/05/17 18:30 Urine Blood SMALL (NEGATIVE) H 07/05/17 18:30 Urine Nitrate NEGATIVE (NEGATIVE) 07/05/17 18:30 Urine Bilirubin NEGATIVE (NEGATIVE) 07/05/17 18:30 Urine Urobilinogen 0.2 E.U./dL (0.2 - 1.0) 07/05/17 18:30 Ur Leukocyte Esterase LARGE (NEGATIVE) H 07/05/17 18:30 Urine RBC 2-5 /hpf (0-5) 07/05/17 18:30 Urine WBC >100 /hpf (0-5) H 07/05/17 18:30 Ur Epithelial Cells FEW /lpf (FEW) 07/05/17 18:30 Urine Bacteria FEW /hpf (NONE SEEN) 07/05/17 18:30 Urine Yeast FEW /hpf (NONE SEEN) H 07/05/17 18:30 Stool Occult Blood POSITIVE (NEGATIVE) H 07/13/17 19:00 Vancomycin Trough 11.2 ug/mL (5-10) H 07/09/17 09:24 - Physical Exam Vitals and I&O: Vital Signs Temp 99 F 07/16/17 16:00 Pulse 89 07/16/17 17:08 Resp 28 07/16/17 17:00 BP 127/49 07/16/17 17:00 Pulse Ox 100 07/16/17 17:08 Intake & Output 07/15/17 07/16/17 07/16/17 18:59 06:59 18:59 Intake Total 2050 1600 Output Total 1150 950 Balance 900 650 Weight (lbs) 67.784 kg 68.765 kg Intake: Intake, IV Amount 1100 1000 D5-0.45NS 1,000 ml @ 75 1000 1000 mls/hr IV .[id number] [facility] Rx #:[id number] Levofloxacin 500mg/100mL 100 500 mg In 100 ml @ 100 mls/hr IV Q24HR [facility] Rx#: [id number] Tube Feeding 600 600 Other 350 Output: Urine 1150 950 Other: # Bowel Movements 2 0 Stool Characteristics Soft Brown Green Weight Source Bedscale Bedscale Active Medications: Current Medications Acetaminophen (Tylenol) 650 mg PO Q4H PRN PRN Reason: Fever > 101 Stop: 08/30/17 22:06 Last Admin: 07/16/17 04:33 Dose: 650 mg Albuterol/Ipratropium (Duoneb Neb) 3 ml HHN Q4HRT PRN PRN Reason: Wheezing Stop: 08/30/17 22:13 Albuterol/Ipratropium (Duoneb Neb) 3 ml HHN Q6HRT [facility] Stop: 08/31/17 00:59 Last Admin: 07/16/17 13:02 Dose: 3 ml Ascorbic Acid (Vitamin C) 500 mg PO DAILY [facility] Stop: 08/31/17 08:59 Last Admin: 07/16/17 09:46 Dose: 500 mg Baclofen (Lioresal) 5 mg PO TID [facility] Stop: 09/06/17 08:59 Last Admin: 07/16/17 14:00 Dose: 5 mg Bisacodyl (Dulcolax 10 Mg Supp) 10 mg RC HS PRN PRN Reason: BOWEL CARE MANAGEMENT Stop: 08/30/17 22:18 Budesonide (Pulmicort) 0.5 mg HHN BIDRT [facility] Stop: 08/31/17 18:59 Last Admin: 07/16/17 07:19 Dose: 0.5 mg Chlorhexidine Gluconate (Peridex) 15 ml MM 0800,2000 [facility] Stop: 09/03/17 19:59 Last Admin: 07/16/17 09:47 Dose: 15 ml Cyproheptadine HCl (Periactin) 4 mg PO BID [facility] Stop: 08/31/17 08:59 Last Admin: 07/16/17 16:16 Dose: 4 mg Docusate Sodium (Colace) 100 mg PO BID [facility] Stop: 08/31/17 08:59 Last Admin: 07/16/17 16:19 Dose: Not Given Ferrous Sulfate (Iron) 325 mg PO BID [facility] Stop: 08/31/17 08:59 Last Admin: 07/16/17 16:16 Dose: 325 mg Folic Acid (Folate) 1 mg PO DAILY [facility] Stop: 08/31/17 08:59 Last Admin: 07/16/17 09:46 Dose: 1 mg Dextrose/Sodium Chloride (D5-0.45ns) 1,000 mls @ 75 mls/hr IV .[id number] [facility] Stop: 09/01/17 11:59 Last Admin: 07/16/17 00:23 Dose: 75 mls/hr Norepinephrine Bitartrate 4 mg (/ Sodium Chloride) 254 mls @ 0 mls/hr IV TITR [facility]; Titrate PRN Reason: Protocol Stop: 09/03/17 16:29 Piperacillin Sod/Tazobactam (Sod 4.5 gm/ Sodium Chloride) 100 mls @ 100 mls/hr IV Q8HR [facility] Stop: 09/14/17 20:59 Lactobacillus Rhamnosus (Culturelle 15b) 1 each PO DAILY [facility] Stop: 09/01/17 08:59 Last Admin: 07/16/17 09:46 Dose: 1 each Lactulose (Cephulac) 20 gm PO QID PRN PRN Reason: Constipation Stop: 08/30/17 22:18 Last Admin: 07/08/17 10:11 Dose: 20 gm Lorazepam (Ativan) 1 mg IVP Q4HR PRN; Protocol PRN Reason: Anxiety Stop: 09/04/17 08:31 Last Admin: 07/08/17 21:57 Dose: 1 mg Methylprednisolone Sodium Succinate (Solu-Medrol) 40 mg IVP Q8HR [facility] Stop: 09/09/17 20:59 Last Admin: 07/16/17 14:00 Dose: 40 mg Miscellaneous (Probiotic Screen) 1 ea MC PRN PRN PRN Reason: PROTOCOL Stop: 09/01/17 08:44 Miscellaneous (Vancomycin Iv Per Pharmacy) 1 ea MC PRN PRN PRN Reason: PROTOCOL Stop: 09/14/17 17:27 Multivitamins/Vitamin C (Theragran) 1 tab PO DAILY [facility] Stop: 08/31/17 08:59 Last Admin: 07/16/17 09:46 Dose: 1 tab Nicotine (Nicotine Transdermal System) 14 mg TD DAILY [facility] Stop: 09/04/17 08:59 Last Admin: 07/16/17 09:48 Dose: 14 mg Pantoprazole Sodium (Protonix) 40 mg IVP BID [facility] Stop: 09/13/17 08:59 Last Admin: 07/16/17 16:17 Dose: 40 mg General: Alert, Other (intubated, cachectic appearing) HEENT: Atraumatic, Other (et in place) Neck: Supple, no JVD, no Thyromegaly Cardiovascular: Regular rate, Other (in A fib) Lungs: Other (Intubated, has bl rales) Abdomen: Bowel sounds, Soft, no Tender, no Hepatomegaly Extremities: Edema, no Clubbing Neurological: Other (Pt unable to participate in test) Skin: no Rash Psych/Mental Status: Other (no psychosis) - Procedures Procedures: Procedures Procedure Code Date INSERT EMERGENCY AIRWAY 80386 07/01/17 INSERTION OF ENDOTRACHEAL AIRWAY INTO TRACHEA, VIA OPENING [id number] 07/01/17 RESPIRATORY VENTILATION, GREATER THAN 96 CONSECUTIVE HOURS [id number] 07/01/17 VENT MGMT INPAT INIT DAY 98151 07/01/17 Assessment/Plan - Problem List Patient Problems: All Active Problems WEAKESS AND POOR ORAL INTAKE (Acute) - Assessment Assessment: * Advanced metastatic cancer * poor functional status * Anemia likely of chronic disease * Respiratory failure s/p intubation 07/05 iron studies cw anemia of chronic disease. hgb better today without transfusion monitor hgb and transfuse for < 7.5 Poor prognosis Nutritional Asmnt/Malnutr-PDOC - Dietary Evaluation Malnutrition Findings (Please click <Entered> for more info): Nutritional Asmnt/Malnutrition Start: 07/03/17 13: 22 Text: Status: Complete Freq: Document 07/03/17 13:22 URBAN (Rec: 07/03/17 13:35 URBAN ULLOA FN) Nutritional Asmnt/Malnutrition Patient General Information Nutritional Screening Consult Diagnosis UTI, Failure to thrive, hypokalemia Pertinent Medical Hx/Surgical Hx CAD, HTN, COPD, Stage 4 lung cancer, peripheral neuropathy, constipation, GERD, anxiety, low back pain Subjective Information Consult received for Failure to Thrive. Current Diet Order/ Nutrition Support Regular diet, pureed with mechaical soft Patient / S.O Not Indicated Pertinent Medications Vitamin C, dulcolax, D5-0.45 NS @ 75 ml/hr, colace, iron, folate, lactulose, theragran Pertinent Labs (07/02) P 1.5, Mg 1.7, albumin 2.9 Nutritional Hx/Data Height 1.6 m Height (Calculated Centimeters) 160.0 Current Weight (lbs) 54.885 kg Weight (Calculated Kilograms) 54.9 Weight (Calculated Grams) 27604.7 [place] Body Weight 115 % [place] Body Weight 105 Body Mass Index (BMI) 21.4 Recent Weight Change No Weight Status Approriate GI Symptoms GI Symptoms None Last BM Prior to admission Difficult in: None Food Allergies No Cultural/Ethnic/Confucianist Belief None indicated Skin Integrity/Comment: Pradeep 15 Current %PO Poor (25-49%) Estimated Nutritional Goals BEE in Kcals: Using Current wt Calories/Kcals/Kg 55kg CBW (25-30kcal/kg) Kcals Calculated 2348-0352 kcal/day Protein: Using Current wt Protein g/k-1.2 gm/kg Protein Calculated 55-65 gm/day Fluid: ml 6865-9637 ml/day (1 ml/kcal) Nutritional Problem 2. Problem Problem Inadequate oral intake related to Etiology poor appetite aeb Signs/Symptoms: meeting <75% of estimated nutrient needs 1. Problem Problem Altered nutrition related lab values related to Etiology electrolyte imbalance aeb Signs/Symptoms: P 1.5, Mg 1.7 Intervention/Recommendation Comments 1. Continue pureed diet as tolerated by patient. 2. RN To assist with feedings and encourage oral intake. 3. Consider adding Boost plus between meals to optimize calorie and protein intake. Expected Outcomes/Goals Expected Outcomes/Goals Oral intake to meet >75% of needs, weight stable, nutrition labs WNL F/U MR 07/06-
[2017-07-16] MEDS ORDERED: Vancomycin HCl 500 MG in Sodium Chloride 0.9% 100 ML IV SCH (20:00)
[2017-07-16] MEDS ORDERED: Piperacillin Sodium/Tazobact 2.25 gm Vial IV ONE (20:13)
[2017-07-16] MEDS: Piperacillin Sodium/Tazobact 2.25 GM in Sodium Chloride 0.9% 100 ML IV SCH (20:16)
[2017-07-17] MEDS: Albuterol/Ipratropium Neb 3 ML AERS HHN SCH ×4 (00:16→18:30)
[2017-07-17] MEDS ORDERED: Piperacillin Sodium/Tazobact 2.25 gm Vial IV ONE ×2 (01:30→04:47)
[2017-07-17] MEDS: Piperacillin Sodium/Tazobact 2.25 GM in Sodium Chloride 0.9% 100 ML IV SCH ×5 (01:34→23:43)
[2017-07-17] MEDS: methylPREDNISolone SS 40 mg Vial IVP SCH ×3 (04:48→20:19)
[2017-07-17 05:23] LABS: HEMATOCRIT 23.7 % (41.0-60); LYMPHOCYTE ABSOLUTE 0.3 Th/cmm (1.5-3.0); MANUAL DIFF REQUIRED? YES; MEAN CELL VOLUME 88.3 fl (81-100); MEAN CORPUSCULAR HEMOGLOBIN 29.4 pg (27.0-31.0); MEAN CORPUSCULAR HGB CONC 33.3 pg (28.0-36.0); MEAN PLATELET VOLUME 6.8 fl; MONOCYTE ABSOLUTE 0.4 Th/cmm (0.3-1.0); NEUTROPHILE ABSOLUTE 15.8 Th/cmm (1.8-8.0); PLATELET COUNT 451 Th/cmm (150-400); RED BLOOD COUNT 2.68 Mil/cmm (3.80-5.20)
[2017-07-17 05:45] LABS: HEMOGLOBIN 7.9 gm/dL (12-16); WHITE BLOOD COUNT 16.5 Th/cmm (4.8-10.8)
[2017-07-17 05:55] LABS: ANION GAP 9.3 (7.0-16.0); BUN - UREA NITROGEN 44 mg/dL (7-25); CALCIUM SERUM 7.6 mg/dL (8.6-10.3); CARBON DIOXIDE 23.9 mEq/L (21.0-31.0); CHLORIDE 106 mEq/L (98-107); CREATININE - SERUM 1.3 mg/dL (0.6-1.2); GLUCOSE 205 mg/dL (70-105); POTASSIUM SERUM 5.2 mEq/L (3.5-5.1); SODIUM SERUM 134 mEq/L (136-145)
[2017-07-17 06:37] LABS: BAND NEUTROPHILE 2 % (0-10); LYMPHOCYTE 2 % (20-50); MONOCYTE 1 % (2-10); NEUTROPHILS 95 % (40-80); PLATELET ESTIMATE INCREASED PLATELETS (NORMAL); TOTAL CELLS COUNTED 100
[2017-07-17] MEDS: Budesonide 0.5 Mg/2 mL Ud HHN SCH ×2 (07:46→18:30)
[2017-07-17] MEDS: Nicotine 14 mg/24 hr Tdm TD SCH (08:14)
[2017-07-17] MEDS: Lactobacillus Rhamnosus GG 15 Billion CFU CAP.SPRINK PO SCH (08:15)
[2017-07-17] MEDS: Cyproheptadine 4 mg Tab PO SCH ×2 (08:15→17:31)
[2017-07-17] MEDS: Chlorhexidine Gluconate 0.12% 15mL Mouthwash MM SCH ×2 (08:15→20:22)
[2017-07-17] MEDS: Multivitamin Tab PO SCH (08:16)
[2017-07-17] MEDS: Ferrous Sulfate 325 MG TAB PO SCH ×2 (08:16→17:31)
--- NOTE | 2017-07-17 09:09 | General Progress Note ---
Subjective - Review of Systems Service Date: 07/17/17 Events since last encounter: The patient is tolerating cpap without any acute desaturations. Continue IV antibiotics. Patient is more responsive than yesterday, she is able to follow commands. Lasix was added due to pitting edema Subjective: The patient is resting comfortably in bed. Does not appear to be in any acute pain or distress. Denies chest pain, coughin, abd pain, dysuria or falls. She remains intubated at this time Objective - Results Result Diagrams: 07/17/17 04:33 07/17/17 04:33 Recent Labs: Laboratory Last Values WBC 16.5 Th/cmm (4.8-10.8) H D 07/17/17 04:33 RBC 2.68 Mil/cmm (3.80-5.20) L 07/17/17 04:33 Hgb 7.9 gm/dL (12-16) L* 07/17/17 04:33 Hct 23.7 % (41.0-60) L D 07/17/17 04:33 MCV 88.3 fl (81-100) 07/17/17 04:33 MCH 29.4 pg (27.0-31.0) 07/17/17 04:33 MCHC Differential 33.3 pg (28.0-36.0) 07/17/17 04:33 RDW 16.0 % (11.5-20.0) 07/17/17 04:33 Plt Count 451 Th/cmm (150-400) H 07/17/17 04:33 MPV 6.8 fl 07/17/17 04:33 Neutrophils % 91.8 % (40.0-80.0) H 07/15/17 06:30 Band Neutrophils % 2 % (0-10) 07/17/17 04:33 Lymphocytes % 3.2 % (20.0-50.0) L 07/15/17 06:30 Monocytes % 4.3 % (2.0-10.0) 07/15/17 06:30 Eosinophils % 0.3 % (0.0-5.0) 07/15/17 06:30 Basophils % 0.4 % (0.0-2.0) 07/15/17 06:30 Neutrophils (Manual) 95 % (40-80) H 07/17/17 04:33 Lymphocytes 2 % (20-50) L 07/17/17 04:33 Monocytes 1 % (2-10) L 07/17/17 04:33 Eosinophils 0 % (0-5) 07/16/17 04:35 Basophils 0 % (0-3) 07/16/17 04:35 Hypochromia 1+ 07/14/17 05:00 Platelet Estimate INCREASED PLATELETS (NORMAL) 07/17/17 04:33 Platelet Morphology NORMAL (NORMAL) 07/16/17 04:35 Polychromasia 1+ 07/14/17 05:00 RBC Morph Micro Appear NORMAL (NORMAL) 07/16/17 04:35 Specimen Source Arterial 07/16/17 15:00 Sample Site Right Radial 07/16/17 15:00 pH 7.44 (7.35-7.45) 07/16/17 15:00 pCO2 33.0 mmHg (35.0-45.0) L 07/16/17 15:00 pO2 257.0 mmHg (80.0-100.0) H 07/16/17 15:00 HCO3 24.1 mEq/L (20.0-26.0) 07/16/17 15:00 Base Excess -1.1 mEq/L (-3.0-3.0) 07/16/17 15:00 O2 Saturation 100.0 % (92.0-100.0) 07/16/17 15:00 Darius Test YES 07/16/17 15:00 Vent Rate NA 07/16/17 15:00 Inspired O2 40 07/16/17 15:00 Tidal Volume NA 07/16/17 15:00 PEEP NA 07/16/17 15:00 Pressure (ins/psv/peep) NA 07/16/17 15:00 Critical Value ABDOULAYE ROSADO 07/16/17 15:00 Sodium 134 mEq/L (136-145) L 07/17/17 04:33 Potassium 5.2 mEq/L (3.5-5.1) H 07/17/17 04:33 Chloride 106 mEq/L (98-107) 07/17/17 04:33 Carbon Dioxide 23.9 mEq/L (21.0-31.0) 07/17/17 04:33 Anion Gap 9.3 (7.0-16.0) 07/17/17 04:33 BUN 44 mg/dL (7-25) H 07/17/17 04:33 Creatinine 1.3 mg/dL (0.6-1.2) H 07/17/17 04:33 Est GFR ( Amer) TNP 07/17/17 04:33 Est GFR (Non-Af Amer) TNP 07/17/17 04:33 BUN/Creatinine Ratio 33.8 07/17/17 04:33 Glucose 205 mg/dL (70-105) H 07/17/17 04:33 POC Glucose 177 MG/DL (70 - 105) H 07/14/17 11:26 Whole Bld Lactic Acid 3.99 mmol/L (0.60-1.99) H* 07/05/17 13:00 Calcium 7.6 mg/dL (8.6-10.3) L 07/17/17 04:33 Phosphorus 1.5 mg/dL (2.5-5.0) L 07/02/17 05:20 Magnesium 1.7 mg/dL (1.9-2.7) L 07/02/17 05:20 Iron 21 07/03/17 05:48 TIBC 131 07/03/17 05:48 Iron Saturation 16 07/03/17 05:48 Unsaturated IBC 110 07/03/17 05:48 Ferritin 334 ng/mL (15-150) H 07/03/17 05:48 Total Bilirubin 0.5 mg/dL (0.3-1.0) 07/05/17 06:05 AST 16 U/L (13-39) 07/05/17 06:05 ALT 8 U/L (7-52) 07/05/17 06:05 Alkaline Phosphatase 66 U/L (34-104) 07/05/17 06:05 Troponin I 0.09 ng/mL (0.01-0.05) H* D 07/04/17 05:50 B-Natriuretic Peptide 215.0 pg/mL (5.0-100.0) H 07/01/17 14:10 Total Protein 5.6 gm/dL (6.0-8.3) L 07/05/17 06:05 Albumin 2.6 gm/dL (3.7-5.3) L 07/05/17 06:05 Globulin 3.0 gm/dL 07/05/17 06:05 Albumin/Globulin Ratio 0.9 (1.0-1.8) L 07/05/17 06:05 Triglycerides 107 mg/dL (<150) 07/04/17 05:50 Cholesterol 114 mg/dL (<200) 07/04/17 05:50 LDL Cholesterol Direct 59 mg/dL (75-193) L 07/04/17 05:50 HDL Cholesterol 31 mg/dL (23-92) 07/04/17 05:50 TSH 1.46 uIU/ml (0.34-5.60) 07/04/17 05:50 Urine Source CATH 07/05/17 18:30 Urine Color YELLOW 07/05/17 18:30 Urine Clarity CLOUDY (CLEAR) H 07/05/17 18:30 Urine pH 5.5 (4.6 - 8.0) 07/05/17 18:30 Ur Specific [place] 1.025 (1.005-1.030) 07/05/17 18:30 Urine Protein 30 mg/dL (NEGATIVE) H 07/05/17 18:30 Urine Glucose (UA) NEGATIVE mg/dL (NEGATIVE) 07/05/17 18:30 Urine Ketones TRACE mg/dL (NEGATIVE) 07/05/17 18:30 Urine Blood SMALL (NEGATIVE) H 07/05/17 18:30 Urine Nitrate NEGATIVE (NEGATIVE) 07/05/17 18:30 Urine Bilirubin NEGATIVE (NEGATIVE) 07/05/17 18:30 Urine Urobilinogen 0.2 E.U./dL (0.2 - 1.0) 07/05/17 18:30 Ur Leukocyte Esterase LARGE (NEGATIVE) H 07/05/17 18:30 Urine RBC 2-5 /hpf (0-5) 07/05/17 18:30 Urine WBC >100 /hpf (0-5) H 07/05/17 18:30 Ur Epithelial Cells FEW /lpf (FEW) 07/05/17 18:30 Urine Bacteria FEW /hpf (NONE SEEN) 07/05/17 18:30 Urine Yeast FEW /hpf (NONE SEEN) H 07/05/17 18:30 Stool Occult Blood POSITIVE (NEGATIVE) H 07/13/17 19:00 Vancomycin Trough 11.2 ug/mL (5-10) H 07/09/17 09:24 - Physical Exam Vitals and I&O: Vital Signs Temp 98.4 F 07/17/17 09:00 Pulse 89 07/17/17 09:00 Resp 30 07/17/17 09:00 BP 128/59 07/17/17 09:00 Pulse Ox 100 07/17/17 09:00 Intake & Output 07/16/17 07/17/17 07/17/17 18:59 06:59 18:59 Intake Total 840 2000 943.75 Output Total 1150 1300 Balance -310 700 943.75 Weight (lbs) 68.492 kg 71.668 kg Intake: Intake, IV Amount 1400 943.75 D5-0.45NS 1,000 ml @ 75 1000 843.75 mls/hr IV .[id number] [facility] Rx #:[id number] Piperacillin Sodium/ 300 100 Tazobact 2.25 gm In Sodium Chloride 0.9% 100 ml @ 100 mls/hr IV Q6HR [facility] Rx#:[id number] Vancomycin HCl 500 mg In 100 Sodium Chloride 0.9% 100 ml @ 100 mls/hr IV Q24H [facility] Rx#:[id number] Tube Feeding 600 600 Other 240 Output: Urine 1150 1300 Other: # Bowel Movements 0 Stool Characteristics Soft Weight Source Bedscale Bedscale Active Medications: Current Medications Acetaminophen (Tylenol) 650 mg PO Q4H PRN PRN Reason: Fever > 101 Stop: 08/30/17 22:06 Last Admin: 07/16/17 04:33 Dose: 650 mg Albuterol/Ipratropium (Duoneb Neb) 3 ml HHN Q4HRT PRN PRN Reason: Wheezing Stop: 08/30/17 22:13 Albuterol/Ipratropium (Duoneb Neb) 3 ml HHN Q6HRT [facility] Stop: 08/31/17 00:59 Last Admin: 07/17/17 07:33 Dose: 3 ml Ascorbic Acid (Vitamin C) 500 mg PO DAILY [facility] Stop: 08/31/17 08:59 Last Admin: 07/17/17 08:15 Dose: 500 mg Baclofen (Lioresal) 5 mg PO TID [facility] Stop: 09/06/17 08:59 Last Admin: 07/17/17 08:16 Dose: 5 mg Bisacodyl (Dulcolax 10 Mg Supp) 10 mg RC HS PRN PRN Reason: BOWEL CARE MANAGEMENT Stop: 08/30/17 22:18 Budesonide (Pulmicort) 0.5 mg HHN BIDRT SHADI Stop: 08/31/17 18:59 Last Admin: 07/17/17 07:46 Dose: 0.5 mg Chlorhexidine Gluconate (Peridex) 15 ml MM 0800,1999 SHADI Stop: 09/03/17 19:59 Last Admin: 07/17/17 08:15 Dose: 15 ml Cyproheptadine HCl (Periactin) 4 mg PO BID SHADI Stop: 08/31/17 08:59 Last Admin: 07/17/17 08:15 Dose: 4 mg Docusate Sodium (Colace) 100 mg PO BID SHADI Stop: 08/31/17 08:59 Last Admin: 07/17/17 08:15 Dose: 100 mg Ferrous Sulfate (Iron) 325 mg PO BID SHADI Stop: 08/31/17 08:59 Last Admin: 07/17/17 08:16 Dose: 325 mg Folic Acid (Folate) 1 mg PO DAILY SHADI Stop: 08/31/17 08:59 Last Admin: 07/17/17 08:16 Dose: 1 mg Dextrose/Sodium Chloride (D5-0.45ns) 1,000 mls @ 75 mls/hr IV .[id number] [facility] Stop: 09/01/17 11:59 Last Infusion: 07/17/17 07:19 Dose: 75 mls/hr Norepinephrine Bitartrate 4 mg (/ Sodium Chloride) 254 mls @ 0 mls/hr IV TITR SHADI; Titrate PRN Reason: Protocol Stop: 09/03/17 16:29 Piperacillin Sod/Tazobactam (Sod 2.25 gm/ Sodium Chloride) 100 mls @ 100 mls/ hr IV Q6HR SHADI Stop: 09/14/17 18:44 Last Infusion: 07/17/17 07:18 Dose: Infused Vancomycin HCl 750 mg/ Sodium (Chloride) 250 mls @ 250 mls/hr IV Q24H [facility] Stop: 09/15/17 09:59 Last Admin: 07/17/17 09:01 Dose: 250 mls/hr Lactobacillus Rhamnosus (Culturelle 15b) 1 each PO DAILY SHADI Stop: 09/01/17 08:59 Last Admin: 07/17/17 08:15 Dose: 1 each Lactulose (Cephulac) 20 gm PO QID PRN PRN Reason: Constipation Stop: 08/30/17 22:18 Last Admin: 07/08/17 10:11 Dose: 20 gm Lorazepam (Ativan) 1 mg IVP Q4HR PRN; Protocol PRN Reason: Anxiety Stop: 09/04/17 08:31 Last Admin: 07/08/17 21:57 Dose: 1 mg Methylprednisolone Sodium Succinate (Solu-Medrol) 40 mg IVP Q8HR SHADI Stop: 09/09/17 20:59 Last Admin: 07/17/17 04:48 Dose: 40 mg Miscellaneous (Probiotic Screen) 1 ea PRN PRN PRN Reason: PROTOCOL Stop: 09/01/17 08:44 Miscellaneous (Vancomycin Iv Per Pharmacy) 1 [facility] PRN PRN PRN Reason: PROTOCOL Stop: 09/14/17 17:27 Multivitamins/Vitamin C (Theragran) 1 tab PO DAILY SHADI Stop: 08/31/17 08:59 Last Admin: 07/17/17 08:16 Dose: 1 tab Nicotine (Nicotine Transdermal System) 14 mg TD DAILY SHADI Stop: 09/04/17 08:59 Last Admin: 07/17/17 08:14 Dose: 14 mg Pantoprazole Sodium (Protonix) 40 mg IVP BID SHADI Stop: 09/13/17 08:59 Last Admin: 07/17/17 08:15 Dose: 40 mg General: Alert, Other (intubated, cachectic appearing, follows commands) HEENT: Atraumatic, Other (et in place) Neck: Supple, no JVD, no Thyromegaly Cardiovascular: Regular rate, Other (in A fib) Lungs: Other (Intubated, has bl rales) Abdomen: Bowel sounds, Soft, no Tender, no Hepatomegaly Extremities: Edema, no Clubbing Neurological: Other (Pt unable to participate in test) Skin: Other (+2 pitting edema), no Rash Psych/Mental Status: Other (no psychosis) - Procedures Procedures: Procedures Procedure Code Date INSERT EMERGENCY AIRWAY 65002 07/01/17 INSERTION OF ENDOTRACHEAL AIRWAY INTO TRACHEA, VIA OPENING [id number] 07/01/17 RESPIRATORY VENTILATION, GREATER THAN 96 CONSECUTIVE HOURS [id number] 07/01/17 VENT MGMT INPAT IN DAY [id number] 07/01/17 Assessment/Plan - Problem List Patient Problems: All Active Problems WEAKESS AND POOR ORAL INTAKE (Acute) - Assessment Assessment: Current Active Problems Problem Status Onset WEAKESS AND POOR ORAL INTAKE Acute Septic shock A fib with RVR Fail to thrive Stage 4 lung ca Sepsis due to E Coli UTI ME Ch pain syn Anemia of ch ill Hypernatremia Hypokalemia Type 2 IN A fib - Plan Plan: Pt holds a poor progonosis. Been trying to communicate poor prognosis to the son. He wants "everything done. " Cardio, Pulm, and Heme Onc seeing pt, all of whom agree with comfort care/ hospice. Continue abx Has been on Amiodarone and Levphed drip in ICU-now off as off 07/06/17. Intubated on 07/05/17. Elec corrected. I's and O's reviewed. Vent settings reviewed. HGB increased to 9.5. Continue to monitor for bleeding or decreased hgb Again, advised son of the grave prognosis and the fact that pt has poor quality of life and it will not improve. He still wants "everything done." As of 07/13/17, she's back on vent as she could not tolerate SIMV. After being back on AC mode, she's been tolerating SIMV since 07/13/17. WBC trended downwards. Continue to monitor O2. Tolerating CPAP and weaning without any acute desaturations. Poor prognosis Nutritional Asmnt/Malnutr-PDOC - Dietary Evaluation Malnutrition Findings (Please click <Entered> for more info): Nutritional Asmnt/Malnutrition Start: 07/03/17 13: 22 Text: Status: Complete Freq: Document 07/03/17 13:22 MMULJENN (Rec: 07/03/17 13:35 MMULJENN ELLER [email or web address]) Nutritional Asmnt/Malnutrition Patient General Information Nutritional Screening Consult Diagnosis UTI, Failure to thrive, hypokalemia Pertinent Medical Hx/Surgical Hx CAD, HTN, COPD, Stage 4 lung cancer, peripheral neuropathy, constipation, GERD, anxiety, low back pain Subjective Information Consult received for Failure to Thrive. Current Diet Order/ Nutrition Support Regular diet, pureed with mechaical soft Patient / S.O Not Indicated Pertinent Medications Vitamin C, dulcolax, D5-0.45 NS @ 75 ml/hr, colace, iron, folate, lactulose, theragran Pertinent Labs (07/02) P 1.5, Mg 1.7, albumin 2.9 Nutritional Hx/Data Height 1.6 m Height (Calculated Centimeters) 160.0 Current Weight (lbs) 54.885 kg Weight (Calculated Kilograms) 54.9 Weight (Calculated Grams) 87106.7 [place] Body Weight 115 % [place] Body Weight 105 Body Mass Index (BMI) 21.4 Recent Weight Change No Weight Status Approriate GI Symptoms GI Symptoms None Last BM Prior to admission Difficult in: None Food Allergies No Cultural/Ethnic/Amish Belief None indicated Skin Integrity/Comment: Pradeep Cook Current %PO Poor (25-49%) Estimated Nutritional Goals BEE in Kcals: Using Current wt Calories/Kcals/Kg 55kg CBW (25-30kcal/kg) Kcals Calculated 1048-9915 kcal/day Protein: Using Current wt Protein g/k-1.2 gm/kg Protein Calculated 55-65 gm/day Fluid: ml 7102-0234 ml/day (1 ml/kcal) Nutritional Problem 2. Problem Problem Inadequate oral intake related to Etiology poor appetite aeb Signs/Symptoms: meeting <75% of estimated nutrient needs 1. Problem Problem Altered nutrition related lab values related to Etiology electrolyte imbalance aeb Signs/Symptoms: P 1.5, Mg 1.7 Intervention/Recommendation Comments 1. Continue pureed diet as tolerated by patient. 2. RN To assist with feedings and encourage oral intake. 3. Consider adding Boost plus between meals to optimize calorie and protein intake. Expected Outcomes/Goals Expected Outcomes/Goals Oral intake to meet >75% of needs, weight stable, nutrition labs WNL F/U MR 07/06-
--- NOTE | 2017-07-17 13:46 | Infectious Disease Prog Note ---
Infectious Disease Subjective - Review of Systems Service Date: 07/17/17 Subjective: There is no new change. Patient remains intubated orally, on the ventilator support. No fever, worsening of leukocytosis is improving. Infectious Disease Objective - Results Result Diagrams: 07/17/17 04:33 07/17/17 04:33 Recent Labs: Laboratory Last Values WBC 16.5 Th/cmm (4.8-10.8) H D 07/17/17 04:33 RBC 2.68 Mil/cmm (3.80-5.20) L 07/17/17 04:33 Hgb 7.9 gm/dL (12-16) L* 07/17/17 04:33 Hct 23.7 % (41.0-60) L D 07/17/17 04:33 MCV 88.3 fl (81-100) 07/17/17 04:33 MCH 29.4 pg (27.0-31.0) 07/17/17 04:33 MCHC Differential 33.3 pg (28.0-36.0) 07/17/17 04:33 RDW 16.0 % (11.5-20.0) 07/17/17 04:33 Plt Count 451 Th/cmm (150-400) H 07/17/17 04:33 MPV 6.8 fl 07/17/17 04:33 Neutrophils % 91.8 % (40.0-80.0) H 07/15/17 06:30 Band Neutrophils % 2 % (0-10) 07/17/17 04:33 Lymphocytes % 3.2 % (20.0-50.0) L 07/15/17 06:30 Monocytes % 4.3 % (2.0-10.0) 07/15/17 06:30 Eosinophils % 0.3 % (0.0-5.0) 07/15/17 06:30 Basophils % 0.4 % (0.0-2.0) 07/15/17 06:30 Neutrophils (Manual) 95 % (40-80) H 07/17/17 04:33 Lymphocytes 2 % (20-50) L 07/17/17 04:33 Monocytes 1 % (2-10) L 07/17/17 04:33 Eosinophils 0 % (0-5) 07/16/17 04:35 Basophils 0 % (0-3) 07/16/17 04:35 Hypochromia 1+ 07/14/17 05:00 Platelet Estimate INCREASED PLATELETS (NORMAL) 07/17/17 04:33 Platelet Morphology NORMAL (NORMAL) 07/16/17 04:35 Polychromasia 1+ 07/14/17 05:00 RBC Morph Micro Appear NORMAL (NORMAL) 07/16/17 04:35 Specimen Source Arterial 07/16/17 15:00 Sample Site Right Radial 07/16/17 15:00 pH 7.44 (7.35-7.45) 07/16/17 15:00 pCO2 33.0 mmHg (35.0-45.0) L 07/16/17 15:00 pO2 257.0 mmHg (80.0-100.0) H 07/16/17 15:00 HCO3 24.1 mEq/L (20.0-26.0) 07/16/17 15:00 Base Excess -1.1 mEq/L (-3.0-3.0) 07/16/17 15:00 O2 Saturation 100.0 % (92.0-100.0) 07/16/17 15:00 Darius Test YES 07/16/17 15:00 Vent Rate NA 07/16/17 15:00 Inspired O2 40 07/16/17 15:00 Tidal Volume NA 07/16/17 15:00 PEEP NA 07/16/17 15:00 Pressure (ins/psv/peep) NA 07/16/17 15:00 Critical Value ABDOULAYE ROSADO 07/16/17 15:00 Sodium 134 mEq/L (136-145) L 07/17/17 04:33 Potassium 5.2 mEq/L (3.5-5.1) H 07/17/17 04:33 Chloride 106 mEq/L (98-107) 07/17/17 04:33 Carbon Dioxide 23.9 mEq/L (21.0-31.0) 07/17/17 04:33 Anion Gap 9.3 (7.0-16.0) 07/17/17 04:33 BUN 44 mg/dL (7-25) H 07/17/17 04:33 Creatinine 1.3 mg/dL (0.6-1.2) H 07/17/17 04:33 Est GFR ( Amer) TNP 07/17/17 04:33 Est GFR (Non-Af Amer) TNP 07/17/17 04:33 BUN/Creatinine Ratio 33.8 07/17/17 04:33 Glucose 205 mg/dL (70-105) H 07/17/17 04:33 POC Glucose 177 MG/DL (70 - 105) H 07/14/17 11:26 Whole Bld Lactic Acid 3.99 mmol/L (0.60-1.99) H* 07/05/17 13:00 Calcium 7.6 mg/dL (8.6-10.3) L 07/17/17 04:33 Phosphorus 1.5 mg/dL (2.5-5.0) L 07/02/17 05:20 Magnesium 1.7 mg/dL (1.9-2.7) L 07/02/17 05:20 Iron 21 07/03/17 05:48 TIBC 131 07/03/17 05:48 Iron Saturation 16 07/03/17 05:48 Unsaturated IBC 110 07/03/17 05:48 Ferritin 334 ng/mL (15-150) H 07/03/17 05:48 Total Bilirubin 0.5 mg/dL (0.3-1.0) 07/05/17 06:05 AST 16 U/L (13-39) 07/05/17 06:05 ALT 8 U/L (7-52) 07/05/17 06:05 Alkaline Phosphatase 66 U/L (34-104) 07/05/17 06:05 Troponin I 0.09 ng/mL (0.01-0.05) H* D 07/04/17 05:50 B-Natriuretic Peptide 215.0 pg/mL (5.0-100.0) H 07/01/17 14:10 Total Protein 5.6 gm/dL (6.0-8.3) L 07/05/17 06:05 Albumin 2.6 gm/dL (3.7-5.3) L 07/05/17 06:05 Globulin 3.0 gm/dL 07/05/17 06:05 Albumin/Globulin Ratio 0.9 (1.0-1.8) L 07/05/17 06:05 Triglycerides 107 mg/dL (<150) 07/04/17 05:50 Cholesterol 114 mg/dL (<200) 07/04/17 05:50 LDL Cholesterol Direct 59 mg/dL (75-193) L 07/04/17 05:50 HDL Cholesterol 31 mg/dL (23-92) 07/04/17 05:50 TSH 1.46 uIU/ml (0.34-5.60) 07/04/17 05:50 Urine Source CATH 07/05/17 18:30 Urine Color YELLOW 07/05/17 18:30 Urine Clarity CLOUDY (CLEAR) H 07/05/17 18:30 Urine pH 5.5 (4.6 - 8.0) 07/05/17 18:30 Ur Specific [place] 1.025 (1.005-1.030) 07/05/17 18:30 Urine Protein 30 mg/dL (NEGATIVE) H 07/05/17 18:30 Urine Glucose (UA) NEGATIVE mg/dL (NEGATIVE) 07/05/17 18:30 Urine Ketones TRACE mg/dL (NEGATIVE) 07/05/17 18:30 Urine Blood SMALL (NEGATIVE) H 07/05/17 18:30 Urine Nitrate NEGATIVE (NEGATIVE) 07/05/17 18:30 Urine Bilirubin NEGATIVE (NEGATIVE) 07/05/17 18:30 Urine Urobilinogen 0.2 E.U./dL (0.2 - 1.0) 07/05/17 18:30 Ur Leukocyte Esterase LARGE (NEGATIVE) H 07/05/17 18:30 Urine RBC 2-5 /hpf (0-5) 07/05/17 18:30 Urine WBC >100 /hpf (0-5) H 07/05/17 18:30 Ur Epithelial Cells FEW /lpf (FEW) 07/05/17 18:30 Urine Bacteria FEW /hpf (NONE SEEN) 07/05/17 18:30 Urine Yeast FEW /hpf (NONE SEEN) H 07/05/17 18:30 Stool Occult Blood POSITIVE (NEGATIVE) H 07/13/17 19:00 Vancomycin Trough 11.2 ug/mL (5-10) H 07/09/17 09:24 - Physical Exam Vitals and I&O: Vital Signs Temp 99.5 F 07/17/17 13:00 Pulse 86 07/17/17 13:00 Resp 25 07/17/17 13:00 BP 119/62 07/17/17 13:00 Pulse Ox 100 07/17/17 13:00 Intake & Output 07/16/17 07/17/17 07/17/17 18:59 06:59 18:59 Intake Total 840 2000 1293.75 Output Total 1150 1300 Balance -051 074 2379.75 Weight (lbs) 68.492 kg 71.668 kg Intake: Intake, IV Amount 1400 1293.75 D5-0.45NS 1,000 ml @ 75 1000 843.75 mls/hr IV .[id number] [facility] Rx #:[id number] Piperacillin Sodium/ 300 200 Tazobact 2.25 gm In Sodium Chloride 0.9% 100 ml @ 100 mls/hr IV Q6HR [facility] Rx#:[id number] Vancomycin HCl 500 mg In 100 Sodium Chloride 0.9% 100 ml @ 100 mls/hr IV Q24H [facility] Rx#:[id number] Vancomycin HCl 750 mg In 250 Sodium Chloride 0.9% 250 ml @ 250 mls/hr IV Q24H [facility] Rx#:[id number] Tube Feeding 600 600 Other 240 Output: Urine 1150 1300 Other: # Bowel Movements 0 Stool Characteristics Soft Weight Source Bedscale Bedscale Active Medications: Current Medications Acetaminophen (Tylenol) 650 mg PO Q4H PRN PRN Reason: Fever > 101 Stop: 08/30/17 22:06 Last Admin: 07/17/17 12:19 Dose: 650 mg Albuterol/Ipratropium (Duoneb Neb) 3 ml HHN Q4HRT PRN PRN Reason: Wheezing Stop: 08/30/17 22:13 Albuterol/Ipratropium (Duoneb Neb) 3 ml HHN Q6HRT [facility] Stop: 08/31/17 00:59 Last Admin: 07/17/17 12:47 Dose: 3 ml Ascorbic Acid (Vitamin C) 500 mg PO DAILY [facility] Stop: 08/31/17 08:59 Last Admin: 07/17/17 08:15 Dose: 500 mg Baclofen (Lioresal) 5 mg PO TID [facility] Stop: 09/06/17 08:59 Last Admin: 07/17/17 13:12 Dose: 5 mg Bisacodyl (Dulcolax 10 Mg Supp) 10 mg RC HS PRN PRN Reason: BOWEL CARE MANAGEMENT Stop: 08/30/17 22:18 Budesonide (Pulmicort) 0.5 mg HHN BIDRT [facility] Stop: 08/31/17 18:59 Last Admin: 07/17/17 07:46 Dose: 0.5 mg Chlorhexidine Gluconate (Peridex) 15 ml MM 799,1999 SHADI Stop: 09/03/17 19:59 Last Admin: 07/17/17 08:15 Dose: 15 ml Cyproheptadine HCl (Periactin) 4 mg PO BID SHADI Stop: 08/31/17 08:59 Last Admin: 07/17/17 08:15 Dose: 4 mg Docusate Sodium (Colace) 100 mg PO BID SHADI Stop: 08/31/17 08:59 Last Admin: 07/17/17 08:15 Dose: 100 mg Ferrous Sulfate (Iron) 325 mg PO BID SHADI Stop: 08/31/17 08:59 Last Admin: 07/17/17 08:16 Dose: 325 mg Folic Acid (Folate) 1 mg PO DAILY SHADI Stop: 08/31/17 08:59 Last Admin: 07/17/17 08:16 Dose: 1 mg Dextrose/Sodium Chloride (D5-0.45ns) 1,000 mls @ 75 mls/hr IV .[id number] [facility] Stop: 09/01/17 11:59 Last Infusion: 07/17/17 07:19 Dose: 75 mls/hr Norepinephrine Bitartrate 4 mg (/ Sodium Chloride) 254 mls @ 0 mls/hr IV TITR SHADI; Titrate PRN Reason: Protocol Stop: 09/03/17 16:29 Piperacillin Sod/Tazobactam (Sod 2.25 gm/ Sodium Chloride) 100 mls @ 100 mls/ hr IV Q6HR SHADI Stop: 09/14/17 18:44 Last Infusion: 07/17/17 13:00 Dose: Infused Vancomycin HCl 750 mg/ Sodium (Chloride) 250 mls @ 250 mls/hr IV Q24H [facility] Stop: 09/15/17 09:59 Last Infusion: 07/17/17 10:05 Dose: Infused Lactobacillus Rhamnosus (Culturelle 15b) 1 each PO DAILY SHADI Stop: 09/01/17 08:59 Last Admin: 07/17/17 08:15 Dose: 1 each Lactulose (Cephulac) 20 gm PO QID PRN PRN Reason: Constipation Stop: 08/30/17 22:18 Last Admin: 07/08/17 10:11 Dose: 20 gm Lorazepam (Ativan) 1 mg IVP Q4HR PRN; Protocol PRN Reason: Anxiety Stop: 09/04/17 08:31 Last Admin: 07/08/17 21:57 Dose: 1 mg Methylprednisolone Sodium Succinate (Solu-Medrol) 40 mg IVP Q8HR SHADI Stop: 09/09/17 20:59 Last Admin: 07/17/17 12:19 Dose: 40 mg Miscellaneous (Probiotic Screen) 1 ea PRN PRN PRN Reason: PROTOCOL Stop: 09/01/17 08:44 Miscellaneous (Vancomycin Iv Per Pharmacy) 1 ea PRN PRN PRN Reason: PROTOCOL Stop: 09/14/17 17:27 Multivitamins/Vitamin C (Theragran) 1 tab PO DAILY SHADI Stop: 08/31/17 08:59 Last Admin: 07/17/17 08:16 Dose: 1 tab Nicotine (Nicotine Transdermal System) 14 mg TD DAILY SHADI Stop: 09/04/17 08:59 Last Admin: 07/17/17 08:14 Dose: 14 mg Pantoprazole Sodium (Protonix) 40 mg IVP BID SHADI Stop: 09/13/17 08:59 Last Admin: 07/17/17 08:15 Dose: 40 mg General: no acute distress, well developed, well nourished HEENT: atraumatic, normocephalic, PERRLA Neck: supple, no thyromegaly Cardiovascular: S1S2, regular Lungs: clear to percussion, rhonchi Abdomen: soft, no tender, no distended Extremities: no cyanosis, no clubbing, no edema Neurological: awake, alert, oriented Skin: intact - Procedures Procedures: Procedures Procedure Code Date INSERT EMERGENCY AIRWAY 97573 07/01/17 INSERTION OF ENDOTRACHEAL AIRWAY INTO [place], VIA OPENING [id number] 07/01/17 RESPIRATORY VENTILATION, GREATER THAN 96 CONSECUTIVE HOURS [id number] 07/01/17 VENT MGMT INPAT IN DAY 26586 07/01/17 Infectious Disease Assmt/Plan - Problem List Patient Problems: All Active Problems WEAKESS AND POOR ORAL INTAKE (Acute) - Assessment Assessment: 1. Leukocytosis. Fever, sepsis. Improving. 2. Pneumonia. 3. Stage IV lung CA. 4. Protein calorie malnutrion, 5. VDRF. 6. ALTERED MENTAL STATUS. - Plan Plan: Continue zosyn and vacno. Poor prognosis. Nutritional Asmnt/Malnutr-PDOC - Dietary Evaluation Malnutrition Findings (Please click <Entered> for more info): Nutritional Asmnt/Malnutrition Start: 07/03/17 13: 22 Text: Status: Complete Freq: Document 07/03/17 13:22 MMKENY (Rec: 07/03/17 13:35 MMKENY ELLER- [email or web address]) Nutritional Asmnt/Malnutrition Patient General Information Nutritional Screening Consult Diagnosis UTI, Failure to thrive, hypokalemia Pertinent Medical Hx/Surgical Hx CAD, HTN, COPD, Stage 4 lung cancer, peripheral neuropathy, constipation, GERD, anxiety, low back pain Subjective Information Consult received for Failure to Thrive. Current Diet Order/ Nutrition Support Regular diet, pureed with mechaical soft Patient / S.O Not Indicated Pertinent Medications Vitamin C, dulcolax, D5-0.45 NS @ 75 ml/hr, colace, iron, folate, lactulose, theragran Pertinent Labs (07/02) P 1.5, Mg 1.7, albumin 2.9 Nutritional Hx/Data Height 1.6 m Height (Calculated Centimeters) 160.0 Current Weight (lbs) 54.885 kg Weight (Calculated Kilograms) 54.9 Weight (Calculated Grams) 79219.7 [place] Body Weight 115 % [place] Body Weight 105 Body Mass Index (BMI) 21.4 Recent Weight Change No Weight Status Approriate GI Symptoms GI Symptoms None Last BM Prior to admission Difficult in: None Food Allergies No Cultural/Ethnic/Worship Belief None indicated Skin Integrity/Comment: Pradeep Cook Current %PO Poor (25-49%) Estimated Nutritional Goals BEE in Kcals: Using Current wt Calories/Kcals/Kg 55kg CBW (25-30kcal/kg) Kcals Calculated 8255-9429 kcal/day Protein: Using Current wt Protein g/k-1.2 gm/kg Protein Calculated 55-65 gm/day Fluid: ml 1299-6409 ml/day (1 ml/kcal) Nutritional Problem 2. Problem Problem Inadequate oral intake related to Etiology poor appetite aeb Signs/Symptoms: meeting <75% of estimated nutrient needs 1. Problem Problem Altered nutrition related lab values related to Etiology electrolyte imbalance aeb Signs/Symptoms: P 1.5, Mg 1.7 Intervention/Recommendation Comments 1. Continue pureed diet as tolerated by patient. 2. RN To assist with feedings and encourage oral intake. 3. Consider adding Boost plus between meals to optimize calorie and protein intake. Expected Outcomes/Goals Expected Outcomes/Goals Oral intake to meet >75% of needs, weight stable, nutrition labs WNL F/U MR
[2017-07-17 14:26] LABS: A1C % 5.2 % (4.0-6.0)
[2017-07-17] MEDS: Lactulose 10 Gm/15 mL 30mL UDC PO PRN (17:50)
[2017-07-18] MEDS: D5-0.45NS 1,000 ML IV SCH ×3 (01:01→20:30)
[2017-07-18] MEDS: Albuterol/Ipratropium Neb 3 ML AERS HHN SCH ×4 (01:16→18:40)
[2017-07-18] MEDS: methylPREDNISolone SS 40 mg Vial IVP SCH ×3 (04:45→21:57)
[2017-07-18] MEDS: Piperacillin Sodium/Tazobact 2.25 GM in Sodium Chloride 0.9% 100 ML IV SCH ×3 (05:46→17:10)
[2017-07-18 07:08] LABS: ANION GAP 12.5 (7.0-16.0); BUN - UREA NITROGEN 47 mg/dL (7-25); CALCIUM SERUM 7.6 mg/dL (8.6-10.3); CARBON DIOXIDE 24.1 mEq/L (21.0-31.0); CHLORIDE 104 mEq/L (98-107); CREATININE - SERUM 1.4 mg/dL (0.6-1.2); GLUCOSE 175 mg/dL (70-105); MONOCYTE ABSOLUTE 0.7 Th/cmm (0.3-1.0); POTASSIUM SERUM 5.6 mEq/L (3.5-5.1); SODIUM SERUM 135 mEq/L (136-145)
[2017-07-18 07:13] LABS: % LYMPHOCYTES 2.6 % (20.0-50.0); % MONOCYTES 3.5 % (2.0-10.0); % NEUTROPHILS 93.6 % (40.0-80.0); HEMATOCRIT 25.9 % (41.0-60); HEMOGLOBIN 8.7 gm/dL (12-16); LYMPHOCYTE ABSOLUTE 0.5 Th/cmm (1.5-3.0); MEAN CELL VOLUME 90.6 fl (81-100); MEAN CORPUSCULAR HEMOGLOBIN 30.3 pg (27.0-31.0); MEAN CORPUSCULAR HGB CONC 33.5 pg (28.0-36.0); MEAN PLATELET VOLUME 6.6 fl; NEUTROPHILE ABSOLUTE 17.7 Th/cmm (1.8-8.0); PLATELET COUNT 455 Th/cmm (150-400); RED BLOOD COUNT 2.86 Mil/cmm (3.80-5.20); RED CELL DISTRIBUTION WIDTH 16.2 % (11.5-20.0); WHITE BLOOD COUNT 18.9 Th/cmm (4.8-10.8)
[2017-07-18 07:15] LABS: % BASOPHILS 0.1 % (0.0-2.0); % EOSINOPHILS 0.2 % (0.0-5.0)
[2017-07-18] MEDS: Budesonide 0.5 Mg/2 mL Ud HHN SCH ×2 (07:37→18:40)
[2017-07-18] MEDS: Chlorhexidine Gluconate 0.12% 15mL Mouthwash MM SCH ×2 (08:30→21:58)
[2017-07-18] MEDS: Nicotine 14 mg/24 hr Tdm TD SCH (09:00)
[2017-07-18] MEDS: Cyproheptadine 4 mg Tab PO SCH ×2 (09:03→16:13)
[2017-07-18] MEDS: Multivitamin Tab PO SCH (09:05)
[2017-07-18] MEDS: Lactobacillus Rhamnosus GG 15 Billion CFU CAP.SPRINK PO SCH (09:05)
[2017-07-18] MEDS: Ferrous Sulfate 325 MG TAB PO SCH ×2 (09:06→16:13)
--- NOTE | 2017-07-18 10:54 | Infectious Disease Prog Note ---
Infectious Disease Subjective - Review of Systems Service Date: 07/18/17 Subjective: There is no new change. Patient remains intubated orally, on the ventilator support. No fever, worsening of leukocytosis is improving. Infectious Disease Objective - Results Result Diagrams: 07/19/17 04:45 07/19/17 04:45 Recent Labs: Laboratory Last Values WBC 18.9 Th/cmm (4.8-10.8) H 07/18/17 06:40 RBC 2.86 Mil/cmm (3.80-5.20) L 07/18/17 06:40 Hgb 8.7 gm/dL (12-16) L 07/18/17 06:40 Hct 25.9 % (41.0-60) L 07/18/17 06:40 MCV 90.6 fl (81-100) 07/18/17 06:40 MCH 30.3 pg (27.0-31.0) 07/18/17 06:40 MCHC Differential 33.5 pg (28.0-36.0) 07/18/17 06:40 RDW 16.2 % (11.5-20.0) 07/18/17 06:40 Plt Count 455 Th/cmm (150-400) H 07/18/17 06:40 MPV 6.6 fl 07/18/17 06:40 Neutrophils % 93.6 % (40.0-80.0) H 07/18/17 06:40 Band Neutrophils % 2 % (0-10) 07/17/17 04:33 Lymphocytes % 2.6 % (20.0-50.0) L 07/18/17 06:40 Monocytes % 3.5 % (2.0-10.0) 07/18/17 06:40 Eosinophils % 0.2 % (0.0-5.0) 07/18/17 06:40 Basophils % 0.1 % (0.0-2.0) 07/18/17 06:40 Neutrophils (Manual) 95 % (40-80) H 07/17/17 04:33 Lymphocytes 2 % (20-50) L 07/17/17 04:33 Monocytes 1 % (2-10) L 07/17/17 04:33 Eosinophils 0 % (0-5) 07/16/17 04:35 Basophils 0 % (0-3) 07/16/17 04:35 Hypochromia 1+ 07/14/17 05:00 Platelet Estimate INCREASED PLATELETS (NORMAL) 07/17/17 04:33 Platelet Morphology NORMAL (NORMAL) 07/16/17 04:35 Polychromasia 1+ 07/14/17 05:00 RBC Morph Micro Appear NORMAL (NORMAL) 07/16/17 04:35 Specimen Source Arterial 07/16/17 15:00 Sample Site Right Radial 07/16/17 15:00 pH 7.44 (7.35-7.45) 07/16/17 15:00 pCO2 33.0 mmHg (35.0-45.0) L 07/16/17 15:00 pO2 257.0 mmHg (80.0-100.0) H 07/16/17 15:00 HCO3 24.1 mEq/L (20.0-26.0) 07/16/17 15:00 Base Excess -1.1 mEq/L (-3.0-3.0) 07/16/17 15:00 O2 Saturation 100.0 % (92.0-100.0) 07/16/17 15:00 Darius Test YES 07/16/17 15:00 Vent Rate NA 07/16/17 15:00 Inspired O2 40 07/16/17 15:00 Tidal Volume NA 07/16/17 15:00 PEEP NA 07/16/17 15:00 Pressure (ins/psv/peep) NA 07/16/17 15:00 Critical Value ABDOULAYE ROSADO 07/16/17 15:00 Sodium 135 mEq/L (136-145) L 07/18/17 06:40 Potassium 5.6 mEq/L (3.5-5.1) H 07/18/17 06:40 Chloride 104 mEq/L (98-107) 07/18/17 06:40 Carbon Dioxide 24.1 mEq/L (21.0-31.0) 07/18/17 06:40 Anion Gap 12.5 (7.0-16.0) 07/18/17 06:40 BUN 47 mg/dL (7-25) H 07/18/17 06:40 Creatinine 1.4 mg/dL (0.6-1.2) H 07/18/17 06:40 Est GFR ( Amer) TNP 07/18/17 06:40 Est GFR (Non-Af Amer) TNP 07/18/17 06:40 BUN/Creatinine Ratio 33.6 07/18/17 06:40 Glucose 175 mg/dL (70-105) H 07/18/17 06:40 POC Glucose 177 MG/DL (70 - 105) H 07/14/17 11:26 Hemoglobin A1c % 5.2 % (4.0-6.0) 07/17/17 04:33 Whole Bld Lactic Acid 3.99 mmol/L (0.60-1.99) H* 07/05/17 13:00 Calcium 7.6 mg/dL (8.6-10.3) L 07/18/17 06:40 Phosphorus 1.5 mg/dL (2.5-5.0) L 07/02/17 05:20 Magnesium 1.7 mg/dL (1.9-2.7) L 07/02/17 05:20 Iron 21 07/03/17 05:48 TIBC 131 07/03/17 05:48 Iron Saturation 16 07/03/17 05:48 Unsaturated IBC 110 07/03/17 05:48 Ferritin 334 ng/mL (15-150) H 07/03/17 05:48 Total Bilirubin 0.5 mg/dL (0.3-1.0) 07/05/17 06:05 AST 16 U/L (13-39) 07/05/17 06:05 ALT 8 U/L (7-52) 07/05/17 06:05 Alkaline Phosphatase 66 U/L (34-104) 07/05/17 06:05 Troponin I 0.09 ng/mL (0.01-0.05) H* D 07/04/17 05:50 B-Natriuretic Peptide 215.0 pg/mL (5.0-100.0) H 07/01/17 14:10 Total Protein 5.6 gm/dL (6.0-8.3) L 07/05/17 06:05 Albumin 2.6 gm/dL (3.7-5.3) L 07/05/17 06:05 Globulin 3.0 gm/dL 07/05/17 06:05 Albumin/Globulin Ratio 0.9 (1.0-1.8) L 07/05/17 06:05 Triglycerides 107 mg/dL (<150) 07/04/17 05:50 Cholesterol 114 mg/dL (<200) 07/04/17 05:50 LDL Cholesterol Direct 59 mg/dL (75-193) L 07/04/17 05:50 HDL Cholesterol 31 mg/dL (23-92) 07/04/17 05:50 TSH 1.46 uIU/ml (0.34-5.60) 07/04/17 05:50 Urine Source CATH 07/05/17 18:30 Urine Color YELLOW 07/05/17 18:30 Urine Clarity CLOUDY (CLEAR) H 07/05/17 18:30 Urine pH 5.5 (4.6 - 8.0) 07/05/17 18:30 Ur Specific [place] 1.025 (1.005-1.030) 07/05/17 18:30 Urine Protein 30 mg/dL (NEGATIVE) H 07/05/17 18:30 Urine Glucose (UA) NEGATIVE mg/dL (NEGATIVE) 07/05/17 18:30 Urine Ketones TRACE mg/dL (NEGATIVE) 07/05/17 18:30 Urine Blood SMALL (NEGATIVE) H 07/05/17 18:30 Urine Nitrate NEGATIVE (NEGATIVE) 07/05/17 18:30 Urine Bilirubin NEGATIVE (NEGATIVE) 07/05/17 18:30 Urine Urobilinogen 0.2 E.U./dL (0.2 - 1.0) 07/05/17 18:30 Ur Leukocyte Esterase LARGE (NEGATIVE) H 07/05/17 18:30 Urine RBC 2-5 /hpf (0-5) 07/05/17 18:30 Urine WBC >100 /hpf (0-5) H 07/05/17 18:30 Ur Epithelial Cells FEW /lpf (FEW) 07/05/17 18:30 Urine Bacteria FEW /hpf (NONE SEEN) 07/05/17 18:30 Urine Yeast FEW /hpf (NONE SEEN) H 07/05/17 18:30 Stool Occult Blood POSITIVE (NEGATIVE) H 07/13/17 19:00 Vancomycin Trough 19.6 ug/mL (5-10) H 07/18/17 06:40 - Physical Exam Vitals and I&O: Vital Signs Temp 98.3 F 07/18/17 10:00 Pulse 80 07/18/17 10:00 Resp 32 07/18/17 10:00 BP 150/75 07/18/17 10:00 Pulse Ox 100 07/18/17 10:00 Intake & Output 07/17/17 07/18/17 07/18/17 18:59 06:59 18:59 Intake Total 2600.00 850 Output Total 1700 1800 Balance 900.00 -950 Weight (lbs) 72.348 kg 72.212 kg Intake: Intake, IV Amount 1550.00 100 D5-0.45NS 1,000 ml @ 75 1000.00 mls/hr IV .[id number] [facility] Rx #:[id number] Piperacillin Sodium/ 300 100 Tazobact 2.25 gm In Sodium Chloride 0.9% 100 ml @ 100 mls/hr IV Q6HR [facility] Rx#:[id number] Vancomycin HCl 750 mg In 250 Sodium Chloride 0.9% 250 ml @ 250 mls/hr IV Q24H [facility] Rx#:[id number] Tube Feeding 600 600 Other 450 150 Output: Urine 1700 1800 Other: # Bowel Movements 0 1 Stool Characteristics Soft Black Green Weight Source Bedscale Bedscale Active Medications: Current Medications Acetaminophen (Tylenol) 650 mg PO Q4H PRN PRN Reason: Fever > 101 Stop: 08/30/17 22:06 Last Admin: 07/17/17 12:19 Dose: 650 mg Albuterol/Ipratropium (Duoneb Neb) 3 ml HHN Q4HRT PRN PRN Reason: Wheezing Stop: 08/30/17 22:13 Albuterol/Ipratropium (Duoneb Neb) 3 ml HHN Q6HRT [facility] Stop: 08/31/17 00:59 Last Admin: 07/18/17 07:37 Dose: 3 ml Ascorbic Acid (Vitamin C) 500 mg PO DAILY [facility] Stop: 08/31/17 08:59 Last Admin: 07/18/17 09:05 Dose: 500 mg Baclofen (Lioresal) 5 mg PO TID [facility] Stop: 09/06/17 08:59 Last Admin: 07/18/17 09:06 Dose: 5 mg Bisacodyl (Dulcolax 10 Mg Supp) 10 mg RC HS PRN PRN Reason: BOWEL CARE MANAGEMENT Stop: 08/30/17 22:18 Budesonide (Pulmicort) 0.5 mg HHN BIDRT [facility] Stop: 08/31/17 18:59 Last Admin: 07/18/17 07:37 Dose: 0.5 mg Chlorhexidine Gluconate (Peridex) 15 ml MM 08,1999 [facility] Stop: 09/03/17 19:59 Last Admin: 07/18/17 08:30 Dose: 15 ml Cyproheptadine HCl (Periactin) 4 mg PO BID [facility] Stop: 08/31/17 08:59 Last Admin: 07/18/17 09:03 Dose: 4 mg Docusate Sodium (Colace) 100 mg PO BID [facility] Stop: 08/31/17 08:59 Last Admin: 07/18/17 09:05 Dose: 100 mg Ferrous Sulfate (Iron) 325 mg PO BID [facility] Stop: 08/31/17 08:59 Last Admin: 07/18/17 09:06 Dose: 325 mg Folic Acid (Folate) 1 mg PO DAILY [facility] Stop: 08/31/17 08:59 Last Admin: 07/18/17 09:05 Dose: 1 mg Dextrose/Sodium Chloride (D5-0.45ns) 1,000 mls @ 75 mls/hr IV .[id number] [facility] Stop: 09/01/17 11:59 Last Admin: 07/18/17 01:01 Dose: 75 mls/hr Norepinephrine Bitartrate 4 mg (/ Sodium Chloride) 254 mls @ 0 mls/hr IV TITR [facility]AD[facility]; Titrate PRN Reason: Protocol Stop: 09/03/17 16:29 Piperacillin Sod/Tazobactam (Sod 2.25 gm/ Sodium Chloride) 100 mls @ 100 mls/ hr IV Q6HR [facility] Stop: 09/14/17 18:44 Last Admin: 07/18/17 05:46 Dose: 100 mls/hr Vancomycin HCl 1.25 gm/ Sodium (Chloride) 250 mls @ 165 mls/hr IV Q24H [facility] Stop: 09/16/17 08:59 Last Admin: 07/18/17 09:03 Dose: 165 mls/hr Lactobacillus Rhamnosus (Culturelle 15b) 1 each PO DAILY [facility] Stop: 09/01/17 08:59 Last Admin: 07/18/17 09:05 Dose: 1 each Lactulose (Cephulac) 20 gm PO QID PRN PRN Reason: Constipation Stop: 08/30/17 22:18 Last Admin: 07/17/17 17:50 Dose: 20 gm Lorazepam (Ativan) 1 mg IVP Q4HR PRN; Protocol PRN Reason: Anxiety Stop: 09/04/17 08:31 Last Admin: 07/08/17 21:57 Dose: 1 mg Methylprednisolone Sodium Succinate (Solu-Medrol) 40 mg IVP Q8HR [facility] Stop: 09/09/17 20:59 Last Admin: 07/18/17 04:45 Dose: 40 mg Miscellaneous (Probiotic Screen) 1 ea PRN PRN PRN Reason: PROTOCOL Stop: 09/01/17 08:44 Miscellaneous (Vancomycin Iv Per Pharmacy) 1 ea PRN PRN PRN Reason: PROTOCOL Stop: 09/14/17 17:27 Multivitamins/Vitamin C (Theragran) 1 tab PO DAILY [facility] Stop: 08/31/17 08:59 Last Admin: 07/18/17 09:05 Dose: 1 tab Nicotine (Nicotine Transdermal System) 14 mg TD DAILY [facility] Stop: 09/04/17 08:59 Last Admin: 07/18/17 09:00 Dose: 14 mg Pantoprazole Sodium (Protonix) 40 mg IVP BID [facility] Stop: 09/13/17 08:59 Last Admin: 07/18/17 09:02 Dose: 40 mg General: no acute distress, well developed, well nourished HEENT: atraumatic, normocephalic, PERRLA Neck: supple, thyromegaly Cardiovascular: S1S2, regular Lungs: clear to percussion, crackles Abdomen: soft, no tender, no distended, no mass Extremities: no cyanosis, no clubbing, no edema Neurological: awake, alert, oriented Skin: intact - Procedures Procedures: Procedures Procedure Code Date INSERT EMERGENCY AIRWAY 15396 07/01/17 INSERTION OF ENDOTRACHEAL AIRWAY INTO [place], VIA OPENING [id number] 07/01/17 RESPIRATORY VENTILATION, GREATER THAN 96 CONSECUTIVE HOURS [id number] 07/01/17 VENT MGMT INPAT INIT DAY 47833 07/01/17 Infectious Disease Assmt/Plan - Problem List Patient Problems: All Active Problems WEAKESS AND POOR ORAL INTAKE (Acute) - Assessment Assessment: 1. Leukocytosis. Fever, sepsis. Improving. 2. Pneumonia. 3. Stage IV lung CA. 4. Protein calorie malnutrion, 5. VDRF. 6. ALTERED MENTAL STATUS. - Plan Plan: Continue zosyn and vacno. Poor prognosis. Nutritional Asmnt/Malnutr-PDOC - Dietary Evaluation Malnutrition Findings (Please click <Entered> for more info): Nutritional Asmnt/Malnutrition Start: 07/03/17 13: 22 Text: Status: Complete Freq: Document 07/03/17 13:22 [email or web address] (Rec: 07/03/17 13:35 [email or web address] [email or web address]- [email or web address]) Nutritional Asmnt/Malnutrition Patient General Information Nutritional Screening Consult Diagnosis UTI, Failure to thrive, hypokalemia Pertinent Medical Hx/Surgical Hx CAD, HTN, COPD, Stage 4 lung cancer, peripheral neuropathy, constipation, GERD, anxiety, low back pain Subjective Information Consult received for Failure to Thrive. Current Diet Order/ Nutrition Support Regular diet, pureed with mechaical soft Patient / S.O Not Indicated Pertinent Medications Vitamin C, dulcolax, D5-0.45 NS @ 75 ml/hr, colace, iron, folate, lactulose, theragran Pertinent Labs (07/02) P 1.5, Mg 1.7, albumin 2.9 Nutritional Hx/Data Height 1.6 m Height (Calculated Centimeters) 160.0 Current Weight (lbs) 54.885 kg Weight (Calculated Kilograms) 54.9 Weight (Calculated Grams) 96880.7 [place] Body Weight 115 % [place] Body Weight 105 Body Mass Index (BMI) 21.4 Recent Weight Change No Weight Status Approriate GI Symptoms GI Symptoms None Last BM Prior to admission Difficult in: None Food Allergies No Cultural/Ethnic/[employer] Belief None indicated Skin Integrity/Comment: Pradeep Cook Current %PO Poor (25-49%) Estimated Nutritional Goals BEE in Kcals: Using Current wt Calories/Kcals/Kg 55kg CBW (25-30kcal/kg) Kcals Calculated 4714-7709 kcal/day Protein: Using Current wt Protein g/k-1.2 gm/kg Protein Calculated 55-65 gm/day Fluid: ml 9552-5623 ml/day (1 ml/kcal) Nutritional Problem 2. Problem Problem Inadequate oral intake related to Etiology poor appetite aeb Signs/Symptoms: meeting <75% of estimated nutrient needs 1. Problem Problem Altered nutrition related lab values related to Etiology electrolyte imbalance aeb Signs/Symptoms: P 1.5, Mg 1.7 Intervention/Recommendation Comments 1. Continue pureed diet as tolerated by patient. 2. RN To assist with feedings and encourage oral intake. 3. Consider adding Boost plus between meals to optimize calorie and protein intake. Expected Outcomes/Goals Expected Outcomes/Goals Oral intake to meet >75% of needs, weight stable, nutrition labs WNL F/U MR 07/06-
[2017-07-18 11:00] LABS: pH 7.42 (7.35-7.45)
--- NOTE | 2017-07-18 11:00 | General Progress Note ---
Subjective - Review of Systems Service Date: 07/18/17 Subjective: unresponsive, opens eyes off vent. still intubated on o2 Objective - Results Result Diagrams: 07/18/17 06:40 07/18/17 06:40 Recent Labs: Laboratory Last Values WBC 18.9 Th/cmm (4.8-10.8) H 07/18/17 06:40 RBC 2.86 Mil/cmm (3.80-5.20) L 07/18/17 06:40 Hgb 8.7 gm/dL (12-16) L 07/18/17 06:40 Hct 25.9 % (41.0-60) L 07/18/17 06:40 MCV 90.6 fl (81-100) 07/18/17 06:40 MCH 30.3 pg (27.0-31.0) 07/18/17 06:40 MCHC Differential 33.5 pg (28.0-36.0) 07/18/17 06:40 RDW 16.2 % (11.5-20.0) 07/18/17 06:40 Plt Count 455 Th/cmm (150-400) H 07/18/17 06:40 MPV 6.6 fl 07/18/17 06:40 Neutrophils % 93.6 % (40.0-80.0) H 07/18/17 06:40 Band Neutrophils % 2 % (0-10) 07/17/17 04:33 Lymphocytes % 2.6 % (20.0-50.0) L 07/18/17 06:40 Monocytes % 3.5 % (2.0-10.0) 07/18/17 06:40 Eosinophils % 0.2 % (0.0-5.0) 07/18/17 06:40 Basophils % 0.1 % (0.0-2.0) 07/18/17 06:40 Neutrophils (Manual) 95 % (40-80) H 07/17/17 04:33 Lymphocytes 2 % (20-50) L 07/17/17 04:33 Monocytes 1 % (2-10) L 07/17/17 04:33 Eosinophils 0 % (0-5) 07/16/17 04:35 Basophils 0 % (0-3) 07/16/17 04:35 Hypochromia 1+ 07/14/17 05:00 Platelet Estimate INCREASED PLATELETS (NORMAL) 07/17/17 04:33 Platelet Morphology NORMAL (NORMAL) 07/16/17 04:35 Polychromasia 1+ 07/14/17 05:00 RBC Morph Micro Appear NORMAL (NORMAL) 07/16/17 04:35 Specimen Source Arterial 07/16/17 15:00 Sample Site Right Radial 07/16/17 15:00 pH 7.44 (7.35-7.45) 07/16/17 15:00 pCO2 33.0 mmHg (35.0-45.0) L 07/16/17 15:00 pO2 257.0 mmHg (80.0-100.0) H 07/16/17 15:00 HCO3 24.1 mEq/L (20.0-26.0) 07/16/17 15:00 Base Excess -1.1 mEq/L (-3.0-3.0) 07/16/17 15:00 O2 Saturation 100.0 % (92.0-100.0) 07/16/17 15:00 Darius Test YES 07/16/17 15:00 Vent Rate NA 07/16/17 15:00 Inspired O2 40 07/16/17 15:00 Tidal Volume NA 07/16/17 15:00 PEEP NA 07/16/17 15:00 Pressure (ins/psv/peep) NA 07/16/17 15:00 Critical Value ABDOULAYE ROSADO 07/16/17 15:00 Sodium 135 mEq/L (136-145) L 07/18/17 06:40 Potassium 5.6 mEq/L (3.5-5.1) H 07/18/17 06:40 Chloride 104 mEq/L (98-107) 07/18/17 06:40 Carbon Dioxide 24.1 mEq/L (21.0-31.0) 07/18/17 06:40 Anion Gap 12.5 (7.0-16.0) 07/18/17 06:40 BUN 47 mg/dL (7-25) H 07/18/17 06:40 Creatinine 1.4 mg/dL (0.6-1.2) H 07/18/17 06:40 Est GFR ( Amer) TNP 07/18/17 06:40 Est GFR (Non-Af Amer) TNP 07/18/17 06:40 BUN/Creatinine Ratio 33.6 07/18/17 06:40 Glucose 175 mg/dL (70-105) H 07/18/17 06:40 POC Glucose 177 MG/DL (70 - 105) H 07/14/17 11:26 Hemoglobin A1c % 5.2 % (4.0-6.0) 07/17/17 04:33 Whole Bld Lactic Acid 3.99 mmol/L (0.60-1.99) H* 07/05/17 13:00 Calcium 7.6 mg/dL (8.6-10.3) L 07/18/17 06:40 Phosphorus 1.5 mg/dL (2.5-5.0) L 07/02/17 05:20 Magnesium 1.7 mg/dL (1.9-2.7) L 07/02/17 05:20 Iron 21 07/03/17 05:48 TIBC 131 07/03/17 05:48 Iron Saturation 16 07/03/17 05:48 Unsaturated IBC 110 07/03/17 05:48 Ferritin 334 ng/mL (15-150) H 07/03/17 05:48 Total Bilirubin 0.5 mg/dL (0.3-1.0) 07/05/17 06:05 AST 16 U/L (13-39) 07/05/17 06:05 ALT 8 U/L (7-52) 07/05/17 06:05 Alkaline Phosphatase 66 U/L (34-104) 07/05/17 06:05 Troponin I 0.09 ng/mL (0.01-0.05) H* D 07/04/17 05:50 B-Natriuretic Peptide 215.0 pg/mL (5.0-100.0) H 07/01/17 14:10 Total Protein 5.6 gm/dL (6.0-8.3) L 07/05/17 06:05 Albumin 2.6 gm/dL (3.7-5.3) L 07/05/17 06:05 Globulin 3.0 gm/dL 07/05/17 06:05 Albumin/Globulin Ratio 0.9 (1.0-1.8) L 07/05/17 06:05 Triglycerides 107 mg/dL (<150) 07/04/17 05:50 Cholesterol 114 mg/dL (<200) 07/04/17 05:50 LDL Cholesterol Direct 59 mg/dL (75-193) L 07/04/17 05:50 HDL Cholesterol 31 mg/dL (23-92) 07/04/17 05:50 TSH 1.46 uIU/ml (0.34-5.60) 07/04/17 05:50 Urine Source CATH 07/05/17 18:30 Urine Color YELLOW 07/05/17 18:30 Urine Clarity CLOUDY (CLEAR) H 07/05/17 18:30 Urine pH 5.5 (4.6 - 8.0) 07/05/17 18:30 Ur Specific Hulbert 1.025 (1.005-1.030) 07/05/17 18:30 Urine Protein 30 mg/dL (NEGATIVE) H 07/05/17 18:30 Urine Glucose (UA) NEGATIVE mg/dL (NEGATIVE) 07/05/17 18:30 Urine Ketones TRACE mg/dL (NEGATIVE) 07/05/17 18:30 Urine Blood SMALL (NEGATIVE) H 07/05/17 18:30 Urine Nitrate NEGATIVE (NEGATIVE) 07/05/17 18:30 Urine Bilirubin NEGATIVE (NEGATIVE) 07/05/17 18:30 Urine Urobilinogen 0.2 E.U./dL (0.2 - 1.0) 07/05/17 18:30 Ur Leukocyte Esterase LARGE (NEGATIVE) H 07/05/17 18:30 Urine RBC 2-5 /hpf (0-5) 07/05/17 18:30 Urine WBC >100 /hpf (0-5) H 07/05/17 18:30 Ur Epithelial Cells FEW /lpf (FEW) 07/05/17 18:30 Urine Bacteria FEW /hpf (NONE SEEN) 07/05/17 18:30 Urine Yeast FEW /hpf (NONE SEEN) H 07/05/17 18:30 Stool Occult Blood POSITIVE (NEGATIVE) H 07/13/17 19:00 Vancomycin Trough 19.6 ug/mL (5-10) H 07/18/17 06:40 - Physical Exam Vitals and I&O: Vital Signs Temp 98.3 F 07/18/17 10:00 Pulse 80 07/18/17 10:00 Resp 32 07/18/17 10:00 BP 150/75 07/18/17 10:00 Pulse Ox 100 07/18/17 10:00 Intake & Output 07/17/17 07/18/17 07/18/17 18:59 06:59 18:59 Intake Total 2600.00 850 Output Total 1700 1800 Balance 900.00 -950 Weight (lbs) 72.348 kg 72.212 kg Intake: Intake, IV Amount 1550.00 100 D5-0.45NS 1,000 ml @ 75 1000.00 mls/hr IV .[id number] [facility] Rx #:[id number] Piperacillin Sodium/ 300 100 Tazobact 2.25 gm In Sodium Chloride 0.9% 100 ml @ 100 mls/hr IV Q6HR [facility] Rx#:[id number] Vancomycin HCl 750 mg In 250 Sodium Chloride 0.9% 250 ml @ 250 mls/hr IV Q24H [facility] Rx#:[id number] Tube Feeding 600 600 Other 450 150 Output: Urine 1700 1800 Other: # Bowel Movements 0 1 Stool Characteristics Soft Black Green Weight Source Bedscale Bedscale Active Medications: Current Medications Acetaminophen (Tylenol) 650 mg PO Q4H PRN PRN Reason: Fever > 101 Stop: 08/30/17 22:06 Last Admin: 07/17/17 12:19 Dose: 650 mg Albuterol/Ipratropium (Duoneb Neb) 3 ml HHN Q4HRT PRN PRN Reason: Wheezing Stop: 08/30/17 22:13 Albuterol/Ipratropium (Duoneb Neb) 3 ml HHN Q6HRT [facility] Stop: 08/31/17 00:59 Last Admin: 07/18/17 07:37 Dose: 3 ml Ascorbic Acid (Vitamin C) 500 mg PO DAILY [facility] Stop: 08/31/17 08:59 Last Admin: 07/18/17 09:05 Dose: 500 mg Baclofen (Lioresal) 5 mg PO TID [facility] Stop: 09/06/17 08:59 Last Admin: 07/18/17 09:06 Dose: 5 mg Bisacodyl (Dulcolax 10 Mg Supp) 10 mg RC HS PRN PRN Reason: BOWEL CARE MANAGEMENT Stop: 08/30/17 22:18 Budesonide (Pulmicort) 0.5 mg HHN BIDRT [facility] Stop: 08/31/17 18:59 Last Admin: 07/18/17 07:37 Dose: 0.5 mg Chlorhexidine Gluconate (Peridex) 15 ml MM 0800,1999 [facility] Stop: 09/03/17 19:59 Last Admin: 07/18/17 08:30 Dose: 15 ml Cyproheptadine HCl (Periactin) 4 mg PO BID [facility] Stop: 08/31/17 08:59 Last Admin: 07/18/17 09:03 Dose: 4 mg Docusate Sodium (Colace) 100 mg PO BID [facility] Stop: 08/31/17 08:59 Last Admin: 07/18/17 09:05 Dose: 100 mg Ferrous Sulfate (Iron) 325 mg PO BID [facility] Stop: 08/31/17 08:59 Last Admin: 07/18/17 09:06 Dose: 325 mg Folic Acid (Folate) 1 mg PO DAILY [facility] Stop: 08/31/17 08:59 Last Admin: 07/18/17 09:05 Dose: 1 mg Dextrose/Sodium Chloride (D5-0.45ns) 1,000 mls @ 75 mls/hr IV .[id number] [facility] Stop: 09/01/17 11:59 Last Admin: 07/18/17 01:01 Dose: 75 mls/hr Norepinephrine Bitartrate 4 mg (/ Sodium Chloride) 254 mls @ 0 mls/hr IV TITR [facility]ADI; Titrate PRN Reason: Protocol Stop: 09/03/17 16:29 Piperacillin Sod/Tazobactam (Sod 2.25 gm/ Sodium Chloride) 100 mls @ 100 mls/ hr IV Q6HR [facility] Stop: 09/14/17 18:44 Last Admin: 07/18/17 05:46 Dose: 100 mls/hr Vancomycin HCl 1.25 gm/ Sodium (Chloride) 250 mls @ 165 mls/hr IV Q24H [facility] Stop: 09/16/17 08:59 Last Admin: 07/18/17 09:03 Dose: 165 mls/hr Lactobacillus Rhamnosus (Culturelle 15b) 1 each PO DAILY [facility] Stop: 09/01/17 08:59 Last Admin: 07/18/17 09:05 Dose: 1 each Lactulose (Cephulac) 20 gm PO QID PRN PRN Reason: Constipation Stop: 08/30/17 22:18 Last Admin: 07/17/17 17:50 Dose: 20 gm Lorazepam (Ativan) 1 mg IVP Q4HR PRN; Protocol PRN Reason: Anxiety Stop: 09/04/17 08:31 Last Admin: 07/08/17 21:57 Dose: 1 mg Methylprednisolone Sodium Succinate (Solu-Medrol) 40 mg IVP Q8HR [facility] Stop: 09/09/17 20:59 Last Admin: 07/18/17 04:45 Dose: 40 mg Miscellaneous (Probiotic Screen) 1 [facility] PRN PRN PRN Reason: PROTOCOL Stop: 09/01/17 08:44 Miscellaneous (Vancomycin Iv Per Pharmacy) 1 [facility] PRN PRN PRN Reason: PROTOCOL Stop: 09/14/17 17:27 Multivitamins/Vitamin C (Theragran) 1 tab PO DAILY [facility] Stop: 08/31/17 08:59 Last Admin: 07/18/17 09:05 Dose: 1 tab Nicotine (Nicotine Transdermal System) 14 mg TD DAILY [facility] Stop: 09/04/17 08:59 Last Admin: 07/18/17 09:00 Dose: 14 mg Pantoprazole Sodium (Protonix) 40 mg IVP BID [facility] Stop: 09/13/17 08:59 Last Admin: 07/18/17 09:02 Dose: 40 mg General: Alert, Other (intubated, cachectic appearing, follows commands) HEENT: Atraumatic, Other (et in place) Neck: Supple, no JVD, no Thyromegaly Cardiovascular: Regular rate, Other (in A fib) Lungs: Other (Intubated, has bl rales) Abdomen: Bowel sounds, Soft, no Tender, no Hepatomegaly Extremities: Edema, no Clubbing Neurological: Other (Pt unable to participate in test) Skin: Other (+2 pitting edema), no Rash Psych/Mental Status: Other (no psychosis) - Procedures Procedures: Procedures Procedure Code Date INSERT EMERGENCY AIRWAY 70518 07/01/17 INSERTION OF ENDOTRACHEAL AIRWAY INTO TRACHEA, VIA OPENING [id number] 07/01/17 RESPIRATORY VENTILATION, GREATER THAN 96 CONSECUTIVE HOURS [id number] 07/01/17 VENT MGMT INPAT INIT DAY 23045 07/01/17 Assessment/Plan - Problem List Patient Problems: All Active Problems WEAKESS AND POOR ORAL INTAKE (Acute) - Assessment Assessment: * Advanced metastatic cancer * poor functional status * Anemia likely of chronic disease * Respiratory failure s/p intubation 07/05 off cpap iron studies cw anemia of chronic disease. hgb better today without transfusion monitor hgb and transfuse for < 7.5 Poor prognosis Nutritional Asmnt/Malnutr-PDOC - Dietary Evaluation Malnutrition Findings (Please click <Entered> for more info): Nutritional Asmnt/Malnutrition Start: 07/03/17 13: 22 Text: Status: Complete Freq: Document 07/03/17 13:22 MMULJENN (Rec: 07/03/17 13:35 MMULJENN ELLER- [email or web address]) Nutritional Asmnt/Malnutrition Patient General Information Nutritional Screening Consult Diagnosis UTI, Failure to thrive, hypokalemia Pertinent Medical Hx/Surgical Hx CAD, HTN, COPD, Stage 4 lung cancer, peripheral neuropathy, constipation, GERD, anxiety, low back pain Subjective Information Consult received for Failure to Thrive. Current Diet Order/ Nutrition Support Regular diet, pureed with mechaical soft Patient / S.O Not Indicated Pertinent Medications Vitamin C, dulcolax, D5-0.45 NS @ 75 ml/hr, colace, iron, folate, lactulose, theragran Pertinent Labs (07/02) P 1.5, Mg 1.7, albumin 2.9 Nutritional Hx/Data Height 1.6 m Height (Calculated Centimeters) 160.0 Current Weight (lbs) 54.885 kg Weight (Calculated Kilograms) 54.9 Weight (Calculated Grams) 85728.7 [place] Body Weight 115 % [place] Body Weight 105 Body Mass Index (BMI) 21.4 Recent Weight Change No Weight Status Approriate GI Symptoms GI Symptoms None Last BM Prior to admission Difficult in: None Food Allergies No Cultural/Ethnic/Zoroastrianism Belief None indicated Skin Integrity/Comment: Pradeep Cook Current %PO Poor (25-49%) Estimated Nutritional Goals BEE in Kcals: Using Current wt Calories/Kcals/Kg 55kg CBW (25-30kcal/kg) Kcals Calculated 2024-8764 kcal/day Protein: Using Current wt Protein g/k-1.2 gm/kg Protein Calculated 55-65 gm/day Fluid: ml 8351-9558 ml/day (1 ml/kcal) Nutritional Problem 2. Problem Problem Inadequate oral intake related to Etiology poor appetite aeb Signs/Symptoms: meeting <75% of estimated nutrient needs 1. Problem Problem Altered nutrition related lab values related to Etiology electrolyte imbalance aeb Signs/Symptoms: P 1.5, Mg 1.7 Intervention/Recommendation Comments 1. Continue pureed diet as tolerated by patient. 2. RN To assist with feedings and encourage oral intake. 3. Consider adding Boost plus between meals to optimize calorie and protein intake. Expected Outcomes/Goals Expected Outcomes/Goals Oral intake to meet >75% of needs, weight stable, nutrition labs WNL F/U MR 07/06-
[2017-07-18 11:01] LABS: ALLEN TEST Positive
--- NOTE | 2017-07-18 11:48 | General Progress Note ---
Subjective - Review of Systems Service Date: 07/18/17 Events since last encounter: Off the ventilator. Tolerating CPAP well. Continue to monitor oxygen saturation. The family is considering g tube placement for continued feeding. Subjective: The patient is resting comfortably in bed. Does not appear to be in any acute pain or distress. Denies chest pain, coughin, abd pain, dysuria or falls. She remains intubated at this time. Lasix was added due to edema Objective - Results Result Diagrams: 07/18/17 06:40 07/18/17 06:40 Recent Labs: Laboratory Last Values WBC 18.9 Th/cmm (4.8-10.8) H 07/18/17 06:40 RBC 2.86 Mil/cmm (3.80-5.20) L 07/18/17 06:40 Hgb 8.7 gm/dL (12-16) L 07/18/17 06:40 Hct 25.9 % (41.0-60) L 07/18/17 06:40 MCV 90.6 fl (81-100) 07/18/17 06:40 MCH 30.3 pg (27.0-31.0) 07/18/17 06:40 MCHC Differential 33.5 pg (28.0-36.0) 07/18/17 06:40 RDW 16.2 % (11.5-20.0) 07/18/17 06:40 Plt Count 455 Th/cmm (150-400) H 07/18/17 06:40 MPV 6.6 fl 07/18/17 06:40 Neutrophils % 93.6 % (40.0-80.0) H 07/18/17 06:40 Band Neutrophils % 2 % (0-10) 07/17/17 04:33 Lymphocytes % 2.6 % (20.0-50.0) L 07/18/17 06:40 Monocytes % 3.5 % (2.0-10.0) 07/18/17 06:40 Eosinophils % 0.2 % (0.0-5.0) 07/18/17 06:40 Basophils % 0.1 % (0.0-2.0) 07/18/17 06:40 Neutrophils (Manual) 95 % (40-80) H 07/17/17 04:33 Lymphocytes 2 % (20-50) L 07/17/17 04:33 Monocytes 1 % (2-10) L 07/17/17 04:33 Eosinophils 0 % (0-5) 07/16/17 04:35 Basophils 0 % (0-3) 07/16/17 04:35 Hypochromia 1+ 07/14/17 05:00 Platelet Estimate INCREASED PLATELETS (NORMAL) 07/17/17 04:33 Platelet Morphology NORMAL (NORMAL) 07/16/17 04:35 Polychromasia 1+ 07/14/17 05:00 RBC Morph Micro Appear NORMAL (NORMAL) 07/16/17 04:35 Specimen Source Arterial 07/18/17 10:48 Sample Site Right Radial 07/18/17 10:48 pH 7.42 (7.35-7.45) 07/18/17 10:48 pCO2 39.0 mmHg (35.0-45.0) 07/18/17 10:48 pO2 217.0 mmHg (80.0-100.0) H 07/18/17 10:48 HCO3 25.6 mEq/L (20.0-26.0) 07/18/17 10:48 Base Excess 0.8 mEq/L (-3.0-3.0) 07/18/17 10:48 O2 Saturation 100.0 % (92.0-100.0) 07/18/17 10:48 Darius Test Positive 07/18/17 10:48 Vent Rate NA 07/18/17 10:48 Inspired O2 40 07/18/17 10:48 Tidal Volume NA 07/18/17 10:48 PEEP NA 07/18/17 10:48 Pressure (ins/psv/peep) NA 07/18/17 10:48 Critical Value LZHANG 07/18/17 10:48 Sodium 135 mEq/L (136-145) L 07/18/17 06:40 Potassium 5.6 mEq/L (3.5-5.1) H 07/18/17 06:40 Chloride 104 mEq/L (98-107) 07/18/17 06:40 Carbon Dioxide 24.1 mEq/L (21.0-31.0) 07/18/17 06:40 Anion Gap 12.5 (7.0-16.0) 07/18/17 06:40 BUN 47 mg/dL (7-25) H 07/18/17 06:40 Creatinine 1.4 mg/dL (0.6-1.2) H 07/18/17 06:40 Est GFR ( Amer) TNP 07/18/17 06:40 Est GFR (Non-Af Amer) TNP 07/18/17 06:40 BUN/Creatinine Ratio 33.6 07/18/17 06:40 Glucose 175 mg/dL (70-105) H 07/18/17 06:40 POC Glucose 177 MG/DL (70 - 105) H 07/14/17 11:26 Hemoglobin A1c % 5.2 % (4.0-6.0) 07/17/17 04:33 Whole Bld Lactic Acid 3.99 mmol/L (0.60-1.99) H* 07/05/17 13:00 Calcium 7.6 mg/dL (8.6-10.3) L 07/18/17 06:40 Phosphorus 1.5 mg/dL (2.5-5.0) L 07/02/17 05:20 Magnesium 1.7 mg/dL (1.9-2.7) L 07/02/17 05:20 Iron 21 07/03/17 05:48 TIBC 131 07/03/17 05:48 Iron Saturation 16 07/03/17 05:48 Unsaturated IBC 110 07/03/17 05:48 Ferritin 334 ng/mL (15-150) H 07/03/17 05:48 Total Bilirubin 0.5 mg/dL (0.3-1.0) 07/05/17 06:05 AST 16 U/L (13-39) 07/05/17 06:05 ALT 8 U/L (7-52) 07/05/17 06:05 Alkaline Phosphatase 66 U/L (34-104) 07/05/17 06:05 Troponin I 0.09 ng/mL (0.01-0.05) H* D 07/04/17 05:50 B-Natriuretic Peptide 215.0 pg/mL (5.0-100.0) H 07/01/17 14:10 Total Protein 5.6 gm/dL (6.0-8.3) L 07/05/17 06:05 Albumin 2.6 gm/dL (3.7-5.3) L 07/05/17 06:05 Globulin 3.0 gm/dL 07/05/17 06:05 Albumin/Globulin Ratio 0.9 (1.0-1.8) L 07/05/17 06:05 Triglycerides 107 mg/dL (<150) 07/04/17 05:50 Cholesterol 114 mg/dL (<200) 07/04/17 05:50 LDL Cholesterol Direct 59 mg/dL (75-193) L 07/04/17 05:50 HDL Cholesterol 31 mg/dL (23-92) 07/04/17 05:50 TSH 1.46 uIU/ml (0.34-5.60) 07/04/17 05:50 Urine Source CATH 07/05/17 18:30 Urine Color YELLOW 07/05/17 18:30 Urine Clarity CLOUDY (CLEAR) H 07/05/17 18:30 Urine pH 5.5 (4.6 - 8.0) 07/05/17 18:30 Ur Specific [place] 1.025 (1.005-1.030) 07/05/17 18:30 Urine Protein 30 mg/dL (NEGATIVE) H 07/05/17 18:30 Urine Glucose (UA) NEGATIVE mg/dL (NEGATIVE) 07/05/17 18:30 Urine Ketones TRACE mg/dL (NEGATIVE) 07/05/17 18:30 Urine Blood SMALL (NEGATIVE) H 07/05/17 18:30 Urine Nitrate NEGATIVE (NEGATIVE) 07/05/17 18:30 Urine Bilirubin NEGATIVE (NEGATIVE) 07/05/17 18:30 Urine Urobilinogen 0.2 E.U./dL (0.2 - 1.0) 07/05/17 18:30 Ur Leukocyte Esterase LARGE (NEGATIVE) H 07/05/17 18:30 Urine RBC 2-5 /hpf (0-5) 07/05/17 18:30 Urine WBC >100 /hpf (0-5) H 07/05/17 18:30 Ur Epithelial Cells FEW /lpf (FEW) 07/05/17 18:30 Urine Bacteria FEW /hpf (NONE SEEN) 07/05/17 18:30 Urine Yeast FEW /hpf (NONE SEEN) H 07/05/17 18:30 Stool Occult Blood POSITIVE (NEGATIVE) H 07/13/17 19:00 Vancomycin Trough 19.6 ug/mL (5-10) H 07/18/17 06:40 - Physical Exam Vitals and I&O: Vital Signs Temp 99.6 F 07/18/17 11:00 Pulse 86 07/18/17 11:18 Resp 36 07/18/17 11:00 BP 154/62 07/18/17 11:00 Pulse Ox 100 07/18/17 11:18 Intake & Output 07/17/17 07/18/17 07/18/17 18:59 06:59 18:59 Intake Total 2600.00 950 250 Output Total 1700 1800 Balance 900.00 -850 250 Weight (lbs) 72.348 kg 72.212 kg Intake: Intake, IV Amount 1550.00 200 250 D5-0.45NS 1,000 ml @ 75 1000.00 mls/hr IV .[id number] [facility] Rx #:[id number] Piperacillin Sodium/ 300 200 Tazobact 2.25 gm In Sodium Chloride 0.9% 100 ml @ 100 mls/hr IV Q6HR [facility] Rx#:[id number] Vancomycin HCl 1.25 gm In 250 Sodium Chloride 0.9% 250 ml @ 165 mls/hr IV Q24H [facility] Rx#:[id number] Vancomycin HCl 750 mg In 250 Sodium Chloride 0.9% 250 ml @ 250 mls/hr IV Q24H [facility] Rx#:[id number] Tube Feeding 600 600 Other 450 150 Output: Urine 1700 1800 Other: # Bowel Movements 0 1 Stool Characteristics Soft Black Green Weight Source Bedscale Bedscale Active Medications: Current Medications Acetaminophen (Tylenol) 650 mg PO Q4H PRN PRN Reason: Fever > 101 Stop: 08/30/17 22:06 Last Admin: 07/18/17 11:40 Dose: 650 mg Albuterol/Ipratropium (Duoneb Neb) 3 ml HHN Q4HRT PRN PRN Reason: Wheezing Stop: 08/30/17 22:13 Albuterol/Ipratropium (Duoneb Neb) 3 ml HHN Q6HRT [facility] Stop: 08/31/17 00:59 Last Admin: 07/18/17 07:37 Dose: 3 ml Ascorbic Acid (Vitamin C) 500 mg PO DAILY [facility] Stop: 08/31/17 08:59 Last Admin: 07/18/17 09:05 Dose: 500 mg Baclofen (Lioresal) 5 mg PO TID [facility] Stop: 09/06/17 08:59 Last Admin: 07/18/17 09:06 Dose: 5 mg Bisacodyl (Dulcolax 10 Mg Supp) 10 mg RC HS PRN PRN Reason: BOWEL CARE MANAGEMENT Stop: 08/30/17 22:18 Budesonide (Pulmicort) 0.5 mg HHN BIDRT [facility]ADI Stop: 08/31/17 18:59 Last Admin: 07/18/17 07:37 Dose: 0.5 mg Chlorhexidine Gluconate (Peridex) 15 ml MM 0800,1999 [facility] Stop: 09/03/17 19:59 Last Admin: 07/18/17 08:30 Dose: 15 ml Cyproheptadine HCl (Periactin) 4 mg PO BID [facility] Stop: 08/31/17 08:59 Last Admin: 07/18/17 09:03 Dose: 4 mg Docusate Sodium (Colace) 100 mg PO BID [facility] Stop: 08/31/17 08:59 Last Admin: 07/18/17 09:05 Dose: 100 mg Ferrous Sulfate (Iron) 325 mg PO BID [facility] Stop: 08/31/17 08:59 Last Admin: 07/18/17 09:06 Dose: 325 mg Folic Acid (Folate) 1 mg PO DAILY [facility] Stop: 08/31/17 08:59 Last Admin: 07/18/17 09:05 Dose: 1 mg Dextrose/Sodium Chloride (D5-0.45ns) 1,000 mls @ 75 mls/hr IV .[id number] [facility] Stop: 09/01/17 11:59 Last Admin: 07/18/17 01:01 Dose: 75 mls/hr Norepinephrine Bitartrate 4 mg (/ Sodium Chloride) 254 mls @ 0 mls/hr IV TITR SHADI; Titrate PRN Reason: Protocol Stop: 09/03/17 16:29 Piperacillin Sod/Tazobactam (Sod 2.25 gm/ Sodium Chloride) 100 mls @ 100 mls/ hr IV Q6HR [facility] Stop: 09/14/17 18:44 Last Admin: 07/18/17 11:43 Dose: 100 mls/hr Vancomycin HCl 1.25 gm/ Sodium (Chloride) 250 mls @ 165 mls/hr IV Q24H [facility] Stop: 09/16/17 08:59 Last Infusion: 07/18/17 10:35 Dose: Infused Lactobacillus Rhamnosus (Culturelle 15b) 1 each PO DAILY [facility] Stop: 09/01/17 08:59 Last Admin: 07/18/17 09:05 Dose: 1 each Lactulose (Cephulac) 20 gm PO QID PRN PRN Reason: Constipation Stop: 08/30/17 22:18 Last Admin: 07/17/17 17:50 Dose: 20 gm Lorazepam (Ativan) 1 mg IVP Q4HR PRN; Protocol PRN Reason: Anxiety Stop: 09/04/17 08:31 Last Admin: 07/08/17 21:57 Dose: 1 mg Methylprednisolone Sodium Succinate (Solu-Medrol) 40 mg IVP Q8HR [facility] Stop: 09/09/17 20:59 Last Admin: 07/18/17 04:45 Dose: 40 mg Miscellaneous (Probiotic Screen) 1 ea PRN PRN PRN Reason: PROTOCOL Stop: 09/01/17 08:44 Miscellaneous (Vancomycin Iv Per Pharmacy) 1 [facility] PRN PRN PRN Reason: PROTOCOL Stop: 09/14/17 17:27 Multivitamins/Vitamin C (Theragran) 1 tab PO DAILY [facility] Stop: 08/31/17 08:59 Last Admin: 07/18/17 09:05 Dose: 1 tab Nicotine (Nicotine Transdermal System) 14 mg TD DAILY [facility] Stop: 09/04/17 08:59 Last Admin: 07/18/17 09:00 Dose: 14 mg Pantoprazole Sodium (Protonix) 40 mg IVP BID [facility] Stop: 09/13/17 08:59 Last Admin: 07/18/17 09:02 Dose: 40 mg General: Alert, Other (intubated, cachectic appearing, follows commands) HEENT: Atraumatic, Other (et in place) Neck: Supple, no JVD, no Thyromegaly Cardiovascular: Regular rate, Other (in A fib) Lungs: Other (Intubated, has bl rales) Abdomen: Bowel sounds, Soft, no Tender, no Hepatomegaly Extremities: Edema, no Clubbing Neurological: Other (Pt unable to participate in test) Skin: Other (+2 pitting edema), no Rash Psych/Mental Status: Other (no psychosis) - Procedures Procedures: Procedures Procedure Code Date INSERT EMERGENCY AIRWAY 12685 07/01/17 INSERTION OF ENDOTRACHEAL AIRWAY INTO TRACHEA, VIA OPENING [id number] 07/01/17 RESPIRATORY VENTILATION, GREATER THAN 96 CONSECUTIVE HOURS [id number] 07/01/17 VENT MGMT INPAT INIT DAY 23708 07/01/17 Assessment/Plan - Problem List Patient Problems: All Active Problems WEAKESS AND POOR ORAL INTAKE (Acute) - Assessment Assessment: Current Active Problems Problem Status Onset WEAKESS AND POOR ORAL INTAKE Acute Septic shock chronic respiratory failure A fib with RVR Fail to thrive Stage 4 lung ca Sepsis due to E Coli UTI ME Ch pain syn Anemia of ch ill Hypernatremia Hypokalemia Type 2 [place] A fib vmn - Plan Plan: Pt holds a poor progonosis. Been trying to communicate poor prognosis to the son. He wants "everything done. " Cardio, Pulm, and Heme Onc seeing pt, all of whom agree with comfort care/ hospice. Continue abx Has been on Amiodarone and Levphed drip in ICU-now off as off 07/06/17. Intubated on 07/05/17. Elec corrected. I's and O's reviewed. Vent settings reviewed. HGB increased to 9.5. Continue to monitor for bleeding or decreased hgb Again, advised son of the grave prognosis and the fact that pt has poor quality of life and it will not improve. He still wants "everything done." As of 07/13/17, she's back on vent as she could not tolerate SIMV. After being back on AC mode, she's been tolerating SIMV since 07/13/17. WBC trended downwards. Continue to monitor O2. Tolerating CPAP and weaning without any acute desaturations. Poor prognosis Nutritional Asmnt/Malnutr-PDOC - Dietary Evaluation Malnutrition Findings (Please click <Entered> for more info): Nutritional Asmnt/Malnutrition Start: 07/03/17 13: 22 Text: Status: Complete Freq: Document 07/03/17 13:22 URBAN (Rec: 07/03/17 13:35 MMKENY [email or web address]) Nutritional Asmnt/Malnutrition Patient General Information Nutritional Screening Consult Diagnosis UTI, Failure to thrive, hypokalemia Pertinent Medical Hx/Surgical Hx CAD, HTN, COPD, Stage 4 lung cancer, peripheral neuropathy, constipation, GERD, anxiety, low back pain Subjective Information Consult received for Failure to Thrive. Current Diet Order/ Nutrition Support Regular diet, pureed with mechaical soft Patient / S.O Not Indicated Pertinent Medications Vitamin C, dulcolax, D5-0.45 NS @ 75 ml/hr, colace, iron, folate, lactulose, theragran Pertinent Labs (07/02) P 1.5, Mg 1.7, albumin 2.9 Nutritional Hx/Data Height 1.6 m Height (Calculated Centimeters) 160.0 Current Weight (lbs) 54.885 kg Weight (Calculated Kilograms) 54.9 Weight (Calculated Grams) 30228.7 [place] Body Weight 115 % [place] Body Weight 105 Body Mass Index (BMI) 21.4 Recent Weight Change No Weight Status Approriate GI Symptoms GI Symptoms None Last BM Prior to admission Difficult in: None Food Allergies No Cultural/Ethnic/[employer] Belief None indicated Skin Integrity/Comment: Pradeep Cook Current %PO Poor (25-49%) Estimated Nutritional Goals BEE in Kcals: Using Current wt Calories/Kcals/Kg 55kg CBW (25-30kcal/kg) Kcals Calculated 4097-1204 kcal/day Protein: Using Current wt Protein g/k-1.2 gm/kg Protein Calculated 55-65 gm/day Fluid: ml 8358-6977 ml/day (1 ml/kcal) Nutritional Problem 2. Problem Problem Inadequate oral intake related to Etiology poor appetite aeb Signs/Symptoms: meeting <75% of estimated nutrient needs 1. Problem Problem Altered nutrition related lab values related to Etiology electrolyte imbalance aeb Signs/Symptoms: P 1.5, Mg 1.7 Intervention/Recommendation Comments 1. Continue pureed diet as tolerated by patient. 2. RN To assist with feedings and encourage oral intake. 3. Consider adding Boost plus between meals to optimize calorie and protein intake. Expected Outcomes/Goals Expected Outcomes/Goals Oral intake to meet >75% of needs, weight stable, nutrition labs WNL F/U MR 07/06-
[2017-07-19] MEDS: Albuterol/Ipratropium Neb 3 ML AERS HHN SCH ×4 (00:23→18:20)
[2017-07-19] MEDS: Piperacillin Sodium/Tazobact 2.25 GM in Sodium Chloride 0.9% 100 ML IV SCH ×4 (00:56→17:00)
[2017-07-19 05:13] LABS: HEMATOCRIT 30.6 % (41.0-60); HEMOGLOBIN 9.8 gm/dL (12-16); LYMPHOCYTE ABSOLUTE 0.7 Th/cmm (1.5-3.0); MEAN CELL VOLUME 87.9 fl (81-100); MEAN CORPUSCULAR HEMOGLOBIN 28.3 pg (27.0-31.0); MEAN CORPUSCULAR HGB CONC 32.2 pg (28.0-36.0); MEAN PLATELET VOLUME 7.2 fl; MONOCYTE ABSOLUTE 0.2 Th/cmm (0.3-1.0); NEUTROPHILE ABSOLUTE 15.7 Th/cmm (1.8-8.0); PLATELET COUNT 367 Th/cmm (150-400); RED BLOOD COUNT 3.48 Mil/cmm (3.80-5.20); RED CELL DISTRIBUTION WIDTH 15.8 % (11.5-20.0)
[2017-07-19 05:16] LABS: ANION GAP 18.5 (7.0-16.0); BUN - UREA NITROGEN 45 mg/dL (7-25); CALCIUM SERUM 7.3 mg/dL (8.6-10.3); CARBON DIOXIDE 18.3 mEq/L (21.0-31.0); CHLORIDE 103 mEq/L (98-107); CREATININE - SERUM 1.3 mg/dL (0.6-1.2); GLUCOSE 155 mg/dL (70-105); POTASSIUM SERUM 4.8 mEq/L (3.5-5.1); SODIUM SERUM 135 mEq/L (136-145)
[2017-07-19] MEDS: methylPREDNISolone SS 40 mg Vial IVP SCH ×3 (05:18→20:54)
[2017-07-19 05:33] LABS: WHITE BLOOD COUNT 16.6 Th/cmm (4.8-10.8)
[2017-07-19 05:34] LABS: % BASOPHILS 0.2 % (0.0-2.0); % EOSINOPHILS 0.2 % (0.0-5.0); % LYMPHOCYTES 4.3 % (20.0-50.0); % MONOCYTES 1.4 % (2.0-10.0); % NEUTROPHILS 93.9 % (40.0-80.0)
[2017-07-19] MEDS: Budesonide 0.5 Mg/2 mL Ud HHN SCH ×2 (07:49→18:20)
--- NOTE | 2017-07-19 08:31 | Diagnostic Imaging Report ---
Portable chest x-ray HISTORY: Shortness of breath Compared with prior exam of 07/16/2017, increased density is noted in the left lower lobe/retrocardiac region. Pneumonia cannot be excluded. Patient is rotated. Endotracheal tube tip is approximately 2.5 cm above the izzy. Nasogastric tube extends into the stomach. IMPRESSION: 1. Density left lower lobe. Pneumonia cannot be excluded. 2. Line and tube placements as noted above
--- NOTE | 2017-07-19 08:55 | General Progress Note ---
Subjective - Review of Systems Service Date: 07/19/17 Subjective: Pt seen and eval. In bed. Continues to be intubated. No awake or alert. Seen by jayson, bren, and heme onc, all of whom agree with hospice care. Dr. Montanez discussed poor prog with son. No fevers or chills. WBC elevated, but improving. No falls. Pt went into A fib pm 07/04/16, and was transferred to ICU on digoxin. Intubated as of 07/05/17. Was on Amiodarone and Levophed drip, both of which are off as of 07/06/17. Pt is no longer awake. She's unresponsive. She had large bm night of 07/10/17. Now on CPAP. Possible extubation today? Objective - Results Result Diagrams: 07/19/17 04:45 07/19/17 04:45 Recent Labs: Laboratory Last Values WBC 16.6 Th/cmm (4.8-10.8) H 07/19/17 04:45 RBC 3.48 Mil/cmm (3.80-5.20) L 07/19/17 04:45 Hgb 9.8 gm/dL (12-16) L 07/19/17 04:45 Hct 30.6 % (41.0-60) L 07/19/17 04:45 MCV 87.9 fl (81-100) 07/19/17 04:45 MCH 28.3 pg (27.0-31.0) 07/19/17 04:45 MCHC Differential 32.2 pg (28.0-36.0) 07/19/17 04:45 RDW 15.8 % (11.5-20.0) 07/19/17 04:45 Plt Count 367 Th/cmm (150-400) 07/19/17 04:45 MPV 7.2 fl 07/19/17 04:45 Neutrophils % 93.9 % (40.0-80.0) H 07/19/17 04:45 Band Neutrophils % 2 % (0-10) 07/17/17 04:33 Lymphocytes % 4.3 % (20.0-50.0) L 07/19/17 04:45 Monocytes % 1.4 % (2.0-10.0) L 07/19/17 04:45 Eosinophils % 0.2 % (0.0-5.0) 07/19/17 04:45 Basophils % 0.2 % (0.0-2.0) 07/19/17 04:45 Neutrophils (Manual) 95 % (40-80) H 07/17/17 04:33 Lymphocytes 2 % (20-50) L 07/17/17 04:33 Monocytes 1 % (2-10) L 07/17/17 04:33 Eosinophils 0 % (0-5) 07/16/17 04:35 Basophils 0 % (0-3) 07/16/17 04:35 Hypochromia 1+ 07/14/17 05:00 Platelet Estimate INCREASED PLATELETS (NORMAL) 07/17/17 04:33 Platelet Morphology NORMAL (NORMAL) 07/16/17 04:35 Polychromasia 1+ 07/14/17 05:00 RBC Morph Micro Appear NORMAL (NORMAL) 07/16/17 04:35 Specimen Source Arterial 07/18/17 10:48 Sample Site Right Radial 07/18/17 10:48 pH 7.42 (7.35-7.45) 07/18/17 10:48 pCO2 39.0 mmHg (35.0-45.0) 07/18/17 10:48 pO2 217.0 mmHg (80.0-100.0) H 07/18/17 10:48 HCO3 25.6 mEq/L (20.0-26.0) 07/18/17 10:48 Base Excess 0.8 mEq/L (-3.0-3.0) 07/18/17 10:48 O2 Saturation 100.0 % (92.0-100.0) 07/18/17 10:48 Darius Test Positive 07/18/17 10:48 Vent Rate NA 07/18/17 10:48 Inspired O2 40 07/18/17 10:48 Tidal Volume NA 07/18/17 10:48 PEEP NA 07/18/17 10:48 Pressure (ins/psv/peep) NA 07/18/17 10:48 Critical Value LZHANG 07/18/17 10:48 Sodium 135 mEq/L (136-145) L 07/19/17 04:45 Potassium 4.8 mEq/L (3.5-5.1) 07/19/17 04:45 Chloride 103 mEq/L (98-107) 07/19/17 04:45 Carbon Dioxide 18.3 mEq/L (21.0-31.0) L 07/19/17 04:45 Anion Gap 18.5 (7.0-16.0) H 07/19/17 04:45 BUN 45 mg/dL (7-25) H 07/19/17 04:45 Creatinine 1.3 mg/dL (0.6-1.2) H 07/19/17 04:45 Est GFR ( Amer) TNP 07/19/17 04:45 Est GFR (Non-Af Amer) TNP 07/19/17 04:45 BUN/Creatinine Ratio 34.6 07/19/17 04:45 Glucose 155 mg/dL (70-105) H 07/19/17 04:45 POC Glucose 177 MG/DL (70 - 105) H 07/14/17 11:26 Hemoglobin A1c % 5.2 % (4.0-6.0) 07/17/17 04:33 Whole Bld Lactic Acid 3.99 mmol/L (0.60-1.99) H* 07/05/17 13:00 Calcium 7.3 mg/dL (8.6-10.3) L 07/19/17 04:45 Phosphorus 1.5 mg/dL (2.5-5.0) L 07/02/17 05:20 Magnesium 1.7 mg/dL (1.9-2.7) L 07/02/17 05:20 Iron 21 07/03/17 05:48 TIBC 131 07/03/17 05:48 Iron Saturation 16 07/03/17 05:48 Unsaturated IBC 110 07/03/17 05:48 Ferritin 334 ng/mL (15-150) H 07/03/17 05:48 Total Bilirubin 0.5 mg/dL (0.3-1.0) 07/05/17 06:05 AST 16 U/L (13-39) 07/05/17 06:05 ALT 8 U/L (7-52) 07/05/17 06:05 Alkaline Phosphatase 66 U/L (34-104) 07/05/17 06:05 Troponin I 0.09 ng/mL (0.01-0.05) H* D 07/04/17 05:50 B-Natriuretic Peptide 215.0 pg/mL (5.0-100.0) H 07/01/17 14:10 Total Protein 5.6 gm/dL (6.0-8.3) L 07/05/17 06:05 Albumin 2.6 gm/dL (3.7-5.3) L 07/05/17 06:05 Globulin 3.0 gm/dL 07/05/17 06:05 Albumin/Globulin Ratio 0.9 (1.0-1.8) L 07/05/17 06:05 Triglycerides 107 mg/dL (<150) 07/04/17 05:50 Cholesterol 114 mg/dL (<200) 07/04/17 05:50 LDL Cholesterol Direct 59 mg/dL (75-193) L 07/04/17 05:50 HDL Cholesterol 31 mg/dL (23-92) 07/04/17 05:50 TSH 1.46 uIU/ml (0.34-5.60) 07/04/17 05:50 Urine Source CATH 07/05/17 18:30 Urine Color YELLOW 07/05/17 18:30 Urine Clarity CLOUDY (CLEAR) H 07/05/17 18:30 Urine pH 5.5 (4.6 - 8.0) 07/05/17 18:30 Ur Specific [place] 1.025 (1.005-1.030) 07/05/17 18:30 Urine Protein 30 mg/dL (NEGATIVE) H 07/05/17 18:30 Urine Glucose (UA) NEGATIVE mg/dL (NEGATIVE) 07/05/17 18:30 Urine Ketones TRACE mg/dL (NEGATIVE) 07/05/17 18:30 Urine Blood SMALL (NEGATIVE) H 07/05/17 18:30 Urine Nitrate NEGATIVE (NEGATIVE) 07/05/17 18:30 Urine Bilirubin NEGATIVE (NEGATIVE) 07/05/17 18:30 Urine Urobilinogen 0.2 E.U./dL (0.2 - 1.0) 07/05/17 18:30 Ur Leukocyte Esterase LARGE (NEGATIVE) H 07/05/17 18:30 Urine RBC 2-5 /hpf (0-5) 07/05/17 18:30 Urine WBC >100 /hpf (0-5) H 07/05/17 18:30 Ur Epithelial Cells FEW /lpf (FEW) 07/05/17 18:30 Urine Bacteria FEW /hpf (NONE SEEN) 07/05/17 18:30 Urine Yeast FEW /hpf (NONE SEEN) H 07/05/17 18:30 Stool Occult Blood POSITIVE (NEGATIVE) H 07/13/17 19:00 Vancomycin Trough 19.6 ug/mL (5-10) H 07/18/17 06:40 - Physical Exam Vitals and I&O: Vital Signs Temp 98.8 F 07/19/17 06:00 Pulse 76 07/19/17 07:50 Resp 18 07/19/17 06:00 BP 115/71 07/19/17 06:00 Pulse Ox 100 07/19/17 07:50 Intake & Output 07/18/17 07/19/17 07/19/17 18:59 06:59 18:59 Intake Total 2755 1556.25 Output Total 1800 1400 Balance 955 156.25 Weight (lbs) 72.376 kg 72.235 kg Intake: Intake, IV Amount 1355 756.25 D5-0.45NS 1,000 ml @ 75 905 556.25 mls/hr IV .[id number] REPLACED BY [facility] Rx #:[id number] Piperacillin Sodium/ 200 200 Tazobact 2.25 gm In Sodium Chloride 0.9% 100 ml @ 100 mls/hr IV Q6HR REPLACED BY [facility] Rx#:[id number] Vancomycin HCl 1.25 gm In 250 Sodium Chloride 0.9% 250 ml @ 165 mls/hr IV Q24H REPLACED BY [facility] Rx#:[id number] Tube Feeding 600 600 Other 800 200 Output: Urine 1800 1400 Other: # Bowel Movements 1 1 Stool Characteristics Soft Green Weight Source Bedscale Bedscale Active Medications: Current Medications Acetaminophen (Tylenol) 650 mg PO Q4H PRN PRN Reason: Fever > 101 Stop: 08/30/17 22:06 Last Admin: 07/18/17 11:40 Dose: 650 mg Albuterol/Ipratropium (Duoneb Neb) 3 ml HHN Q4HRT PRN PRN Reason: Wheezing Stop: 08/30/17 22:13 Albuterol/Ipratropium (Duoneb Neb) 3 ml HHN Q6HRT REPLACED BY [facility] Stop: 08/31/17 00:59 Last Admin: 07/19/17 07:49 Dose: 3 ml Ascorbic Acid (Vitamin C) 500 mg PO DAILY REPLACED BY [facility] Stop: 08/31/17 08:59 Last Admin: 07/18/17 09:05 Dose: 500 mg Baclofen (Lioresal) 5 mg PO TID REPLACED BY [facility] Stop: 09/06/17 08:59 Last Admin: 07/18/17 21:57 Dose: 5 mg Bisacodyl (Dulcolax 10 Mg Supp) 10 mg RC HS PRN PRN Reason: BOWEL CARE MANAGEMENT Stop: 08/30/17 22:18 Budesonide (Pulmicort) 0.5 mg HHN BIDRT SHADI Stop: 08/31/17 18:59 Last Admin: 07/19/17 07:49 Dose: 0.5 mg Chlorhexidine Gluconate (Peridex) 15 ml MM 0800,1999 REPLACED BY [facility] Stop: 09/03/17 19:59 Last Admin: 07/18/17 21:58 Dose: 15 ml Cyproheptadine HCl (Periactin) 4 mg PO BID REPLACED BY [facility] Stop: 08/31/17 08:59 Last Admin: 07/18/17 16:13 Dose: 4 mg Docusate Sodium (Colace) 100 mg PO BID REPLACED BY [facility] Stop: 08/31/17 08:59 Last Admin: 07/18/17 16:13 Dose: 100 mg Ferrous Sulfate (Iron) 325 mg PO BID REPLACED BY [facility] Stop: 08/31/17 08:59 Last Admin: 07/18/17 16:13 Dose: 325 mg Folic Acid (Folate) 1 mg PO DAILY REPLACED BY [facility] Stop: 08/31/17 08:59 Last Admin: 07/18/17 09:05 Dose: 1 mg Furosemide (Lasix) 20 mg IVP DAILY REPLACED BY [facility] Stop: 09/16/17 11:59 Last Admin: 07/18/17 12:03 Dose: 20 mg Dextrose/Sodium Chloride (D5-0.45ns) 1,000 mls @ 75 mls/hr IV .[id number] REPLACED BY [facility] Stop: 09/01/17 11:59 Last Admin: 07/18/17 20:30 Dose: 75 mls/hr Norepinephrine Bitartrate 4 mg (/ Sodium Chloride) 254 mls @ 0 mls/hr IV TITR SHADI; Titrate PRN Reason: Protocol Stop: 09/03/17 16:29 Piperacillin Sod/Tazobactam (Sod 2.25 gm/ Sodium Chloride) 100 mls @ 100 mls/ hr IV Q6HR REPLACED BY [facility] Stop: 09/14/17 18:44 Last Infusion: 07/19/17 06:18 Dose: Infused Vancomycin HCl 1.25 gm/ Sodium (Chloride) 250 mls @ 165 mls/hr IV Q24H SHADI Stop: 09/16/17 08:59 Last Infusion: 07/18/17 10:35 Dose: Infused Lactobacillus Rhamnosus (Culturelle 15b) 1 each PO DAILY SHADI Stop: 09/01/17 08:59 Last Admin: 07/18/17 09:05 Dose: 1 each Lactulose (Cephulac) 20 gm PO QID PRN PRN Reason: Constipation Stop: 08/30/17 22:18 Last Admin: 07/17/17 17:50 Dose: 20 gm Lorazepam (Ativan) 1 mg IVP Q4HR PRN; Protocol PRN Reason: Anxiety Stop: 09/04/17 08:31 Last Admin: 07/18/17 21:49 Dose: 1 mg Methylprednisolone Sodium Succinate (Solu-Medrol) 40 mg IVP Q8HR SHADI Stop: 09/09/17 20:59 Last Admin: 07/19/17 05:18 Dose: 40 mg Miscellaneous (Probiotic Screen) 1 ea PRN PRN PRN Reason: PROTOCOL Stop: 09/01/17 08:44 Miscellaneous (Vancomycin Iv Per Pharmacy) 1 [facility] PRN PRN PRN Reason: PROTOCOL Stop: 09/14/17 17:27 Multivitamins/Vitamin C (Theragran) 1 tab PO DAILY SHADI Stop: 08/31/17 08:59 Last Admin: 07/18/17 09:05 Dose: 1 tab Nicotine (Nicotine Transdermal System) 14 mg TD DAILY SHADI Stop: 09/04/17 08:59 Last Admin: 07/18/17 09:00 Dose: 14 mg Pantoprazole Sodium (Protonix) 40 mg IVP BID SHADI Stop: 09/13/17 08:59 Last Admin: 07/18/17 16:13 Dose: 40 mg General: Alert, Other (intubated, cachectic appearing, follows commands) HEENT: Atraumatic, Other (et in place) Neck: Supple, no JVD, no Thyromegaly Cardiovascular: Regular rate, Other (in A fib) Lungs: Other (Intubated, has bl rales) Abdomen: Bowel sounds, Soft, no Tender, no Hepatomegaly Extremities: Edema, no Clubbing Neurological: Other (Pt unable to participate in test) Skin: Other (+2 pitting edema), no Rash Psych/Mental Status: Other (no psychosis) - Procedures Procedures: Procedures Procedure Code Date INSERT EMERGENCY AIRWAY 17084 07/01/17 INSERTION OF ENDOTRACHEAL AIRWAY INTO TRACHEA, VIA OPENING [id number] 07/01/17 RESPIRATORY VENTILATION, GREATER THAN 96 CONSECUTIVE HOURS [id number] 07/01/17 VENT MGMT INPAT INIT DAY [id number] 07/01/17 Assessment/Plan - Problem List Patient Problems: All Active Problems WEAKESS AND POOR ORAL INTAKE (Acute) - Assessment Assessment: Septic shock A fib with RVR Fail to thrive Stage 4 lung ca Sepsis due to E Coli UTI ME Ch pain syn Anemia of ch ill Hypernatremia Hypokalemia Type 2 MA A fib - Plan Plan: Pt holds a poor progonosis. Been trying to communicate poor prognosis to the son. He wants "everything done. " Cardio, Pulm, and Heme Onc seeing pt, all of whom agree with comfort care/ hospice. On IV Zosyn and Vanco. Has been on Amiodarone and Levphed drip in ICU-now off as off 07/06/17. Intubated on 07/05/17. Elec corrected. I's and O's reviewed. Vent settings reviewed. Pt holds a poor prognosis. Son still wants everything done. No drips. Pt responsive. Weaning tried on 07/10/17, but could not tolerate it. Hgb dropping. Holding Xarelto as of 07/11/17. Check stool OB times 2. FU on CBC and Chem 7. Again, advised son of the grave prognosis and the fact that pt has poor quality of life and it will not improve. He still wants "everything done." As of 07/13/17, she's back on vent as she could not tolerate SIMV. After being back on AC mode, she's been tolerating SIMV since 07/13/17. Now she's on CPAP as of 07/18/17. Nutritional Asmnt/Malnutr-PDOC - Dietary Evaluation Malnutrition Findings (Please click <Entered> for more info): Nutritional Asmnt/Malnutrition Start: 07/03/17 13: 22 Text: Status: Complete Freq: Document 07/03/17 13:22 URBAN (Rec: 07/03/17 13:35 URBAN [email or web address]- [id number]) Nutritional Asmnt/Malnutrition Patient General Information Nutritional Screening Consult Diagnosis UTI, Failure to thrive, hypokalemia Pertinent Medical Hx/Surgical Hx CAD, HTN, COPD, Stage 4 lung cancer, peripheral neuropathy, constipation, GERD, anxiety, low back pain Subjective Information Consult received for Failure to Thrive. Current Diet Order/ Nutrition Support Regular diet, pureed with mechaical soft Patient / S.O Not Indicated Pertinent Medications Vitamin C, dulcolax, D5-0.45 NS @ 75 ml/hr, colace, iron, folate, lactulose, theragran Pertinent Labs (07/02) P 1.5, Mg 1.7, albumin 2.9 Nutritional Hx/Data Height 1.6 m Height (Calculated Centimeters) 160.0 Current Weight (lbs) 54.885 kg Weight (Calculated Kilograms) 54.9 Weight (Calculated Grams) 57663.7 [place] Body Weight 115 % [place] Body Weight 105 Body Mass Index (BMI) 21.4 Recent Weight Change No Weight Status Approriate GI Symptoms GI Symptoms None Last BM Prior to admission Difficult in: None Food Allergies No Cultural/Ethnic/Christian Belief None indicated Skin Integrity/Comment: Pradeep 15 Current %PO Poor (25-49%) Estimated Nutritional Goals BEE in Kcals: Using Current wt Calories/Kcals/Kg 55kg CBW (25-30kcal/kg) Kcals Calculated 2118-6149 kcal/day Protein: Using Current wt Protein g/k-1.2 gm/kg Protein Calculated 55-65 gm/day Fluid: ml 4921-5912 ml/day (1 ml/kcal) Nutritional Problem 2. Problem Problem Inadequate oral intake related to Etiology poor appetite aeb Signs/Symptoms: meeting <75% of estimated nutrient needs 1. Problem Problem Altered nutrition related lab values related to Etiology electrolyte imbalance aeb Signs/Symptoms: P 1.5, Mg 1.7 Intervention/Recommendation Comments 1. Continue pureed diet as tolerated by patient. 2. RN To assist with feedings and encourage oral intake. 3. Consider adding Boost plus between meals to optimize calorie and protein intake. Expected Outcomes/Goals Expected Outcomes/Goals Oral intake to meet >75% of needs, weight stable, nutrition labs WNL F/U MR 07/06-
[2017-07-19] MEDS: Cyproheptadine 4 mg Tab PO SCH ×2 (08:57→16:58)
[2017-07-19] MEDS: Multivitamin Tab PO SCH (08:57)
[2017-07-19] MEDS: Lactobacillus Rhamnosus GG 15 Billion CFU CAP.SPRINK PO SCH (08:57)
[2017-07-19] MEDS: Ferrous Sulfate 325 MG TAB PO SCH ×2 (08:58→16:58)
[2017-07-19] MEDS: Chlorhexidine Gluconate 0.12% 15mL Mouthwash MM SCH (08:59)
[2017-07-19] MEDS: Nicotine 14 mg/24 hr Tdm TD SCH (09:00)
--- NOTE | 2017-07-19 09:56 | Infectious Disease Prog Note ---
Infectious Disease Subjective - Review of Systems Service Date: 07/19/17 Subjective: There is no new change. Patient remains intubated orally, on the ventilator support. No fever, worsening of leukocytosis is improving. Infectious Disease Objective - Results Result Diagrams: 07/20/17 06:00 07/20/17 06:00 Recent Labs: Laboratory Last Values WBC 16.6 Th/cmm (4.8-10.8) H 07/19/17 04:45 RBC 3.48 Mil/cmm (3.80-5.20) L 07/19/17 04:45 Hgb 9.8 gm/dL (12-16) L 07/19/17 04:45 Hct 30.6 % (41.0-60) L 07/19/17 04:45 MCV 87.9 fl (81-100) 07/19/17 04:45 MCH 28.3 pg (27.0-31.0) 07/19/17 04:45 MCHC Differential 32.2 pg (28.0-36.0) 07/19/17 04:45 RDW 15.8 % (11.5-20.0) 07/19/17 04:45 Plt Count 367 Th/cmm (150-400) 07/19/17 04:45 MPV 7.2 fl 07/19/17 04:45 Neutrophils % 93.9 % (40.0-80.0) H 07/19/17 04:45 Band Neutrophils % 2 % (0-10) 07/17/17 04:33 Lymphocytes % 4.3 % (20.0-50.0) L 07/19/17 04:45 Monocytes % 1.4 % (2.0-10.0) L 07/19/17 04:45 Eosinophils % 0.2 % (0.0-5.0) 07/19/17 04:45 Basophils % 0.2 % (0.0-2.0) 07/19/17 04:45 Neutrophils (Manual) 95 % (40-80) H 07/17/17 04:33 Lymphocytes 2 % (20-50) L 07/17/17 04:33 Monocytes 1 % (2-10) L 07/17/17 04:33 Eosinophils 0 % (0-5) 07/16/17 04:35 Basophils 0 % (0-3) 07/16/17 04:35 Hypochromia 1+ 07/14/17 05:00 Platelet Estimate INCREASED PLATELETS (NORMAL) 07/17/17 04:33 Platelet Morphology NORMAL (NORMAL) 07/16/17 04:35 Polychromasia 1+ 07/14/17 05:00 RBC Morph Micro Appear NORMAL (NORMAL) 07/16/17 04:35 Specimen Source Arterial 07/18/17 10:48 Sample Site Right Radial 07/18/17 10:48 pH 7.42 (7.35-7.45) 07/18/17 10:48 pCO2 39.0 mmHg (35.0-45.0) 07/18/17 10:48 pO2 217.0 mmHg (80.0-100.0) H 07/18/17 10:48 HCO3 25.6 mEq/L (20.0-26.0) 07/18/17 10:48 Base Excess 0.8 mEq/L (-3.0-3.0) 07/18/17 10:48 O2 Saturation 100.0 % (92.0-100.0) 07/18/17 10:48 Darius Test Positive 07/18/17 10:48 Vent Rate NA 07/18/17 10:48 Inspired O2 40 07/18/17 10:48 Tidal Volume NA 07/18/17 10:48 PEEP NA 07/18/17 10:48 Pressure (ins/psv/peep) NA 07/18/17 10:48 Critical Value LZHANG 07/18/17 10:48 Sodium 135 mEq/L (136-145) L 07/19/17 04:45 Potassium 4.8 mEq/L (3.5-5.1) 07/19/17 04:45 Chloride 103 mEq/L (98-107) 07/19/17 04:45 Carbon Dioxide 18.3 mEq/L (21.0-31.0) L 07/19/17 04:45 Anion Gap 18.5 (7.0-16.0) H 07/19/17 04:45 BUN 45 mg/dL (7-25) H 07/19/17 04:45 Creatinine 1.3 mg/dL (0.6-1.2) H 07/19/17 04:45 Est GFR ( Amer) TNP 07/19/17 04:45 Est GFR (Non-Af Amer) TNP 07/19/17 04:45 BUN/Creatinine Ratio 34.6 07/19/17 04:45 Glucose 155 mg/dL (70-105) H 07/19/17 04:45 POC Glucose 177 MG/DL (70 - 105) H 07/14/17 11:26 Hemoglobin A1c % 5.2 % (4.0-6.0) 07/17/17 04:33 Whole Bld Lactic Acid 3.99 mmol/L (0.60-1.99) H* 07/05/17 13:00 Calcium 7.3 mg/dL (8.6-10.3) L 07/19/17 04:45 Phosphorus 1.5 mg/dL (2.5-5.0) L 07/02/17 05:20 Magnesium 1.7 mg/dL (1.9-2.7) L 07/02/17 05:20 Iron 21 07/03/17 05:48 TIBC 131 07/03/17 05:48 Iron Saturation 16 07/03/17 05:48 Unsaturated IBC 110 07/03/17 05:48 Ferritin 334 ng/mL (15-150) H 07/03/17 05:48 Total Bilirubin 0.5 mg/dL (0.3-1.0) 07/05/17 06:05 AST 16 U/L (13-39) 07/05/17 06:05 ALT 8 U/L (7-52) 07/05/17 06:05 Alkaline Phosphatase 66 U/L (34-104) 07/05/17 06:05 Troponin I 0.09 ng/mL (0.01-0.05) H* D 07/04/17 05:50 B-Natriuretic Peptide 215.0 pg/mL (5.0-100.0) H 07/01/17 14:10 Total Protein 5.6 gm/dL (6.0-8.3) L 07/05/17 06:05 Albumin 2.6 gm/dL (3.7-5.3) L 07/05/17 06:05 Globulin 3.0 gm/dL 07/05/17 06:05 Albumin/Globulin Ratio 0.9 (1.0-1.8) L 07/05/17 06:05 Triglycerides 107 mg/dL (<150) 07/04/17 05:50 Cholesterol 114 mg/dL (<200) 07/04/17 05:50 LDL Cholesterol Direct 59 mg/dL (75-193) L 07/04/17 05:50 HDL Cholesterol 31 mg/dL (23-92) 07/04/17 05:50 TSH 1.46 uIU/ml (0.34-5.60) 07/04/17 05:50 Urine Source CATH 07/05/17 18:30 Urine Color YELLOW 07/05/17 18:30 Urine Clarity CLOUDY (CLEAR) H 07/05/17 18:30 Urine pH 5.5 (4.6 - 8.0) 07/05/17 18:30 Ur Specific [place] 1.025 (1.005-1.030) 07/05/17 18:30 Urine Protein 30 mg/dL (NEGATIVE) H 07/05/17 18:30 Urine Glucose (UA) NEGATIVE mg/dL (NEGATIVE) 07/05/17 18:30 Urine Ketones TRACE mg/dL (NEGATIVE) 07/05/17 18:30 Urine Blood SMALL (NEGATIVE) H 07/05/17 18:30 Urine Nitrate NEGATIVE (NEGATIVE) 07/05/17 18:30 Urine Bilirubin NEGATIVE (NEGATIVE) 07/05/17 18:30 Urine Urobilinogen 0.2 E.U./dL (0.2 - 1.0) 07/05/17 18:30 Ur Leukocyte Esterase LARGE (NEGATIVE) H 07/05/17 18:30 Urine RBC 2-5 /hpf (0-5) 07/05/17 18:30 Urine WBC >100 /hpf (0-5) H 07/05/17 18:30 Ur Epithelial Cells FEW /lpf (FEW) 07/05/17 18:30 Urine Bacteria FEW /hpf (NONE SEEN) 07/05/17 18:30 Urine Yeast FEW /hpf (NONE SEEN) H 07/05/17 18:30 Stool Occult Blood POSITIVE (NEGATIVE) H 07/13/17 19:00 Vancomycin Trough 19.6 ug/mL (5-10) H 07/18/17 06:40 - Physical Exam Vitals and I&O: Vital Signs Temp 98 F 07/19/17 09:50 Pulse 79 07/19/17 09:50 Resp 21 07/19/17 09:50 BP 152/64 07/19/17 09:50 Pulse Ox 99 07/19/17 09:50 Intake & Output 07/18/17 07/19/17 07/19/17 18:59 06:59 18:59 Intake Total 2755 1556.25 Output Total 1800 1400 Balance 955 156.25 Weight (lbs) 72.376 kg 72.235 kg Intake: Intake, IV Amount 1355 756.25 D5-0.45NS 1,000 ml @ 75 905 556.25 mls/hr IV .[id number] [facility] Rx #:[id number] Piperacillin Sodium/ 200 200 Tazobact 2.25 gm In Sodium Chloride 0.9% 100 ml @ 100 mls/hr IV Q6HR [facility] Rx#:[id number] Vancomycin HCl 1.25 gm In 250 Sodium Chloride 0.9% 250 ml @ 165 mls/hr IV Q24H [facility] Rx#:[id number] Tube Feeding 600 600 Other 800 200 Output: Urine 1800 1400 Other: # Bowel Movements 1 1 Stool Characteristics Soft Green Weight Source Bedscale Bedscale Active Medications: Current Medications Acetaminophen (Tylenol) 650 mg PO Q4H PRN PRN Reason: Fever > 101 Stop: 08/30/17 22:06 Last Admin: 07/18/17 11:40 Dose: 650 mg Albuterol/Ipratropium (Duoneb Neb) 3 ml HHN Q4HRT PRN PRN Reason: Wheezing Stop: 08/30/17 22:13 Albuterol/Ipratropium (Duoneb Neb) 3 ml HHN Q6HRT [facility] Stop: 08/31/17 00:59 Last Admin: 07/19/17 07:49 Dose: 3 ml Ascorbic Acid (Vitamin C) 500 mg PO DAILY [facility] Stop: 08/31/17 08:59 Last Admin: 07/19/17 08:58 Dose: 500 mg Baclofen (Lioresal) 5 mg PO TID [facility] Stop: 09/06/17 08:59 Last Admin: 07/19/17 08:58 Dose: 5 mg Bisacodyl (Dulcolax 10 Mg Supp) 10 mg RC HS PRN PRN Reason: BOWEL CARE MANAGEMENT Stop: 08/30/17 22:18 Budesonide (Pulmicort) 0.5 mg HHN BIDRT [facility] Stop: 06/13/18 18:59 Last Admin: 07/19/17 07:49 Dose: 0.5 mg Chlorhexidine Gluconate (Peridex) 15 ml MM 08,1999 [facility] Stop: 09/03/17 19:59 Last Admin: 07/19/17 08:59 Dose: 15 ml Cyproheptadine HCl (Periactin) 4 mg PO BID [facility] Stop: 08/31/17 08:59 Last Admin: 07/19/17 08:57 Dose: 4 mg Docusate Sodium (Colace) 100 mg PO BID [facility] Stop: 08/31/17 08:59 Last Admin: 07/19/17 08:58 Dose: 100 mg Ferrous Sulfate (Iron) 325 mg PO BID [facility] Stop: 08/31/17 08:59 Last Admin: 07/19/17 08:58 Dose: 325 mg Folic Acid (Folate) 1 mg PO DAILY [facility] Stop: 08/31/17 08:59 Last Admin: 07/19/17 08:57 Dose: 1 mg Furosemide (Lasix) 20 mg IVP DAILY [facility] Stop: 09/16/17 11:59 Last Admin: 07/19/17 08:57 Dose: 20 mg Dextrose/Sodium Chloride (D5-0.45ns) 1,000 mls @ 75 mls/hr IV .[id number] [facility] Stop: 09/01/17 11:59 Last Admin: 07/18/17 20:30 Dose: 75 mls/hr Norepinephrine Bitartrate 4 mg (/ Sodium Chloride) 254 mls @ 0 mls/hr IV TITR SHADI; Titrate PRN Reason: Protocol Stop: 09/03/17 16:29 Piperacillin Sod/Tazobactam (Sod 2.25 gm/ Sodium Chloride) 100 mls @ 100 mls/ hr IV Q6HR [facility] Stop: 09/14/17 18:44 Last Infusion: 07/19/17 06:18 Dose: Infused Vancomycin HCl 1.25 gm/ Sodium (Chloride) 250 mls @ 165 mls/hr IV Q24H [facility] Stop: 09/16/17 08:59 Last Admin: 07/19/17 09:04 Dose: 165 mls/hr Lactobacillus Rhamnosus (Culturelle 15b) 1 each PO DAILY [facility] Stop: 09/01/17 08:59 Last Admin: 07/19/17 08:57 Dose: 1 each Lactulose (Cephulac) 20 gm PO QID PRN PRN Reason: Constipation Stop: 08/30/17 22:18 Last Admin: 07/17/17 17:50 Dose: 20 gm Lorazepam (Ativan) 1 mg IVP Q4HR PRN; Protocol PRN Reason: Anxiety Stop: 09/04/17 08:31 Last Admin: 07/18/17 21:49 Dose: 1 mg Methylprednisolone Sodium Succinate (Solu-Medrol) 40 mg IVP Q8HR [facility] Stop: 09/09/17 20:59 Last Admin: 07/19/17 05:18 Dose: 40 mg Miscellaneous (Probiotic Screen) 1 ea PRN PRN PRN Reason: PROTOCOL Stop: 09/01/17 08:44 Miscellaneous (Vancomycin Iv Per Pharmacy) 1 [facility] PRN PRN PRN Reason: PROTOCOL Stop: 09/14/17 17:27 Multivitamins/Vitamin C (Theragran) 1 tab PO DAILY [facility]I Stop: 08/31/17 08:59 Last Admin: 07/19/17 08:57 Dose: 1 tab Nicotine (Nicotine Transdermal System) 14 mg TD DAILY [facility] Stop: 09/04/17 08:59 Last Admin: 07/19/17 09:00 Dose: 14 mg Pantoprazole Sodium (Protonix) 40 mg IVP BID [facility] Stop: 09/13/17 08:59 Last Admin: 07/19/17 08:57 Dose: 40 mg General: no acute distress, cachectic HEENT: atraumatic, normocephalic, PERRLA, EOMI Neck: supple, no thyromegaly Cardiovascular: S1S2, regular Lungs: clear to auscultation bilaterally, clear to percussion, crackles, no wheeze Abdomen: soft, no tender, no distended, no rebound Extremities: no cyanosis, no clubbing, no edema Neurological: awake, alert Skin: intact - Procedures Procedures: Procedures Procedure Code Date INSERT EMERGENCY AIRWAY 57269 07/01/17 INSERTION OF ENDOTRACHEAL AIRWAY INTO [place]HE[place], VIA OPENING [id number] 07/01/17 RESPIRATORY VENTILATION, GREATER THAN 96 CONSECUTIVE HOURS [id number] 07/01/17 VENT MGMT INPAT INIT DAY 11360 07/01/17 Infectious Disease Assmt/Plan - Problem List Patient Problems: All Active Problems WEAKESS AND POOR ORAL INTAKE (Acute) - Assessment Assessment: 1. Leukocytosis. Fever, sepsis. Improving. 2. Pneumonia. 3. Stage IV lung CA. 4. Protein calorie malnutrion, 5. VDRF. 6. ALTERED MENTAL STATUS. - Plan Plan: Continue zosyn and vacno. Poor prognosis. Nutritional Asmnt/Malnutr-PDOC - Dietary Evaluation Malnutrition Findings (Please click <Entered> for more info): Nutritional Asmnt/Malnutrition Start: 07/03/17 13: 22 Text: Status: Complete Freq: Document 07/03/17 13:22 [email or web address] (Rec: 07/03/17 13:35 MMULN [facility]) Nutritional Asmnt/Malnutrition Patient General Information Nutritional Screening Consult Diagnosis UTI, Failure to thrive, hypokalemia Pertinent Medical Hx/Surgical Hx CAD, HTN, COPD, Stage 4 lung cancer, peripheral neuropathy, constipation, GERD, anxiety, low back pain Subjective Information Consult received for Failure to Thrive. Current Diet Order/ Nutrition Support Regular diet, pureed with mechaical soft Patient / S.O Not Indicated Pertinent Medications Vitamin C, dulcolax, D5-0.45 NS @ 75 ml/hr, colace, iron, folate, lactulose, theragran Pertinent Labs (07/02) P 1.5, Mg 1.7, albumin 2.9 Nutritional Hx/Data Height 1.6 m Height (Calculated Centimeters) 160.0 Current Weight (lbs) 54.885 kg Weight (Calculated Kilograms) 54.9 Weight (Calculated Grams) 57947.7 [place] Body Weight 115 % [place] Body Weight 105 Body Mass Index (BMI) 21.4 Recent Weight Change No Weight Status Approriate GI Symptoms GI Symptoms None Last BM Prior to admission Difficult in: None Food Allergies No Cultural/Ethnic/Yazidi Belief None indicated Skin Integrity/Comment: Pradeep 15 Current %PO Poor (25-49%) Estimated Nutritional Goals BEE in Kcals: Using Current wt Calories/Kcals/Kg 55kg CBW (25-30kcal/kg) Kcals Calculated 2203-2305 kcal/day Protein: Using Current wt Protein g/k-1.2 gm/kg Protein Calculated 55-65 gm/day Fluid: ml 7456-3637 ml/day (1 ml/kcal) Nutritional Problem 2. Problem Problem Inadequate oral intake related to Etiology poor appetite aeb Signs/Symptoms: meeting <75% of estimated nutrient needs 1. Problem Problem Altered nutrition related lab values related to Etiology electrolyte imbalance aeb Signs/Symptoms: P 1.5, Mg 1.7 Intervention/Recommendation Comments 1. Continue pureed diet as tolerated by patient. 2. RN To assist with feedings and encourage oral intake. 3. Consider adding Boost plus between meals to optimize calorie and protein intake. Expected Outcomes/Goals Expected Outcomes/Goals Oral intake to meet >75% of needs, weight stable, nutrition labs WNL F/U MR
[2017-07-19] MEDS: D5-0.45NS 1,000 ML IV SCH (14:40)
--- NOTE | 2017-07-19 16:00 | General Progress Note ---
Subjective - Review of Systems Service Date: 07/19/17 Subjective: unresponsive, opens eyes off vent. still intubated on o2 Objective - Results Result Diagrams: 07/19/17 04:45 07/19/17 04:45 Recent Labs: Laboratory Last Values WBC 16.6 Th/cmm (4.8-10.8) H 07/19/17 04:45 RBC 3.48 Mil/cmm (3.80-5.20) L 07/19/17 04:45 Hgb 9.8 gm/dL (12-16) L 07/19/17 04:45 Hct 30.6 % (41.0-60) L 07/19/17 04:45 MCV 87.9 fl (81-100) 07/19/17 04:45 MCH 28.3 pg (27.0-31.0) 07/19/17 04:45 MCHC Differential 32.2 pg (28.0-36.0) 07/19/17 04:45 RDW 15.8 % (11.5-20.0) 07/19/17 04:45 Plt Count 367 Th/cmm (150-400) 07/19/17 04:45 MPV 7.2 fl 07/19/17 04:45 Neutrophils % 93.9 % (40.0-80.0) H 07/19/17 04:45 Band Neutrophils % 2 % (0-10) 07/17/17 04:33 Lymphocytes % 4.3 % (20.0-50.0) L 07/19/17 04:45 Monocytes % 1.4 % (2.0-10.0) L 07/19/17 04:45 Eosinophils % 0.2 % (0.0-5.0) 07/19/17 04:45 Basophils % 0.2 % (0.0-2.0) 07/19/17 04:45 Neutrophils (Manual) 95 % (40-80) H 07/17/17 04:33 Lymphocytes 2 % (20-50) L 07/17/17 04:33 Monocytes 1 % (2-10) L 07/17/17 04:33 Eosinophils 0 % (0-5) 07/16/17 04:35 Basophils 0 % (0-3) 07/16/17 04:35 Hypochromia 1+ 07/14/17 05:00 Platelet Estimate INCREASED PLATELETS (NORMAL) 07/17/17 04:33 Platelet Morphology NORMAL (NORMAL) 07/16/17 04:35 Polychromasia 1+ 07/14/17 05:00 RBC Morph Micro Appear NORMAL (NORMAL) 07/16/17 04:35 Specimen Source Arterial 07/18/17 10:48 Sample Site Right Radial 07/18/17 10:48 pH 7.42 (7.35-7.45) 07/18/17 10:48 pCO2 39.0 mmHg (35.0-45.0) 07/18/17 10:48 pO2 217.0 mmHg (80.0-100.0) H 07/18/17 10:48 HCO3 25.6 mEq/L (20.0-26.0) 07/18/17 10:48 Base Excess 0.8 mEq/L (-3.0-3.0) 07/18/17 10:48 O2 Saturation 100.0 % (92.0-100.0) 07/18/17 10:48 Darius Test Positive 07/18/17 10:48 Vent Rate NA 07/18/17 10:48 Inspired O2 40 07/18/17 10:48 Tidal Volume NA 07/18/17 10:48 PEEP NA 07/18/17 10:48 Pressure (ins/psv/peep) NA 07/18/17 10:48 Critical Value LZHANG 07/18/17 10:48 Sodium 135 mEq/L (136-145) L 07/19/17 04:45 Potassium 4.8 mEq/L (3.5-5.1) 07/19/17 04:45 Chloride 103 mEq/L (98-107) 07/19/17 04:45 Carbon Dioxide 18.3 mEq/L (21.0-31.0) L 07/19/17 04:45 Anion Gap 18.5 (7.0-16.0) H 07/19/17 04:45 BUN 45 mg/dL (7-25) H 07/19/17 04:45 Creatinine 1.3 mg/dL (0.6-1.2) H 07/19/17 04:45 Est GFR ( Amer) TNP 07/19/17 04:45 Est GFR (Non-Af Amer) TNP 07/19/17 04:45 BUN/Creatinine Ratio 34.6 07/19/17 04:45 Glucose 155 mg/dL (70-105) H 07/19/17 04:45 POC Glucose 177 MG/DL (70 - 105) H 07/14/17 11:26 Hemoglobin A1c % 5.2 % (4.0-6.0) 07/17/17 04:33 Whole Bld Lactic Acid 3.99 mmol/L (0.60-1.99) H* 07/05/17 13:00 Calcium 7.3 mg/dL (8.6-10.3) L 07/19/17 04:45 Phosphorus 1.5 mg/dL (2.5-5.0) L 07/02/17 05:20 Magnesium 1.7 mg/dL (1.9-2.7) L 07/02/17 05:20 Iron 21 07/03/17 05:48 TIBC 131 07/03/17 05:48 Iron Saturation 16 07/03/17 05:48 Unsaturated IBC 110 07/03/17 05:48 Ferritin 334 ng/mL (15-150) H 07/03/17 05:48 Total Bilirubin 0.5 mg/dL (0.3-1.0) 07/05/17 06:05 AST 16 U/L (13-39) 07/05/17 06:05 ALT 8 U/L (7-52) 07/05/17 06:05 Alkaline Phosphatase 66 U/L (34-104) 07/05/17 06:05 Troponin I 0.09 ng/mL (0.01-0.05) H* D 07/04/17 05:50 B-Natriuretic Peptide 215.0 pg/mL (5.0-100.0) H 07/01/17 14:10 Total Protein 5.6 gm/dL (6.0-8.3) L 07/05/17 06:05 Albumin 2.6 gm/dL (3.7-5.3) L 07/05/17 06:05 Globulin 3.0 gm/dL 07/05/17 06:05 Albumin/Globulin Ratio 0.9 (1.0-1.8) L 07/05/17 06:05 Triglycerides 107 mg/dL (<150) 07/04/17 05:50 Cholesterol 114 mg/dL (<200) 07/04/17 05:50 LDL Cholesterol Direct 59 mg/dL (75-193) L 07/04/17 05:50 HDL Cholesterol 31 mg/dL (23-92) 07/04/17 05:50 TSH 1.46 uIU/ml (0.34-5.60) 07/04/17 05:50 Urine Source CATH 07/05/17 18:30 Urine Color YELLOW 07/05/17 18:30 Urine Clarity CLOUDY (CLEAR) H 07/05/17 18:30 Urine pH 5.5 (4.6 - 8.0) 07/05/17 18:30 Ur Specific [place] 1.025 (1.005-1.030) 07/05/17 18:30 Urine Protein 30 mg/dL (NEGATIVE) H 07/05/17 18:30 Urine Glucose (UA) NEGATIVE mg/dL (NEGATIVE) 07/05/17 18:30 Urine Ketones TRACE mg/dL (NEGATIVE) 07/05/17 18:30 Urine Blood SMALL (NEGATIVE) H 07/05/17 18:30 Urine Nitrate NEGATIVE (NEGATIVE) 07/05/17 18:30 Urine Bilirubin NEGATIVE (NEGATIVE) 07/05/17 18:30 Urine Urobilinogen 0.2 E.U./dL (0.2 - 1.0) 07/05/17 18:30 Ur Leukocyte Esterase LARGE (NEGATIVE) H 07/05/17 18:30 Urine RBC 2-5 /hpf (0-5) 07/05/17 18:30 Urine WBC >100 /hpf (0-5) H 07/05/17 18:30 Ur Epithelial Cells FEW /lpf (FEW) 07/05/17 18:30 Urine Bacteria FEW /hpf (NONE SEEN) 07/05/17 18:30 Urine Yeast FEW /hpf (NONE SEEN) H 07/05/17 18:30 Stool Occult Blood POSITIVE (NEGATIVE) H 07/13/17 19:00 Vancomycin Trough 19.6 ug/mL (5-10) H 07/18/17 06:40 - Physical Exam Vitals and I&O: Vital Signs Temp 98.4 F 07/19/17 15:00 Pulse 91 07/19/17 15:00 Resp 26 07/19/17 15:00 BP 149/68 07/19/17 15:00 Pulse Ox 100 05/01/18 15:00 Intake & Output 07/18/17 07/19/17 07/19/17 18:59 06:59 18:59 Intake Total 2755 1556.25 1350 Output Total 1800 1400 Balance 955 156.25 1350 Weight (lbs) 72.376 kg 72.235 kg Intake: Intake, IV Amount 1355 756.25 1350 D5-0.45NS 1,000 ml @ 75 905 556.25 1000 mls/hr IV .[id number] [facility] Rx #:[id number] Piperacillin Sodium/ 200 200 100 Tazobact 2.25 gm In Sodium Chloride 0.9% 100 ml @ 100 mls/hr IV Q6HR [facility] Rx#:[id number] Vancomycin HCl 1.25 gm In 250 250 Sodium Chloride 0.9% 250 ml @ 165 mls/hr IV Q24H [facility] Rx#:[id number] Tube Feeding 600 600 Other 800 200 Output: Urine 1800 1400 Other: # Bowel Movements 1 1 Stool Characteristics Soft Green Weight Source Bedscale Bedscale Active Medications: Current Medications Acetaminophen (Tylenol) 650 mg PO Q4H PRN PRN Reason: Fever > 101 Stop: 08/30/17 22:06 Last Admin: 07/18/17 11:40 Dose: 650 mg Albuterol/Ipratropium (Duoneb Neb) 3 ml HHN Q4HRT PRN PRN Reason: Wheezing Stop: 08/30/17 22:13 Albuterol/Ipratropium (Duoneb Neb) 3 ml HHN Q6HRT [facility] Stop: 08/31/17 00:59 Last Admin: 07/19/17 14:00 Dose: 3 ml Ascorbic Acid (Vitamin C) 500 mg PO DAILY [facility] Stop: 08/31/17 08:59 Last Admin: 07/19/17 08:58 Dose: 500 mg Baclofen (Lioresal) 5 mg PO TID [facility] Stop: 09/06/17 08:59 Last Admin: 07/19/17 13:25 Dose: 5 mg Bisacodyl (Dulcolax 10 Mg Supp) 10 mg RC HS PRN PRN Reason: BOWEL CARE MANAGEMENT Stop: 08/30/17 22:18 Budesonide (Pulmicort) 0.5 mg HHN BIDRT [facility] Stop: 08/31/17 18:59 Last Admin: 07/19/17 07:49 Dose: 0.5 mg Chlorhexidine Gluconate (Peridex) 15 ml MM 799,1999 [facility] Stop: 09/03/17 19:59 Last Admin: 07/19/17 08:59 Dose: 15 ml Cyproheptadine HCl (Periactin) 4 mg PO BID [facility] Stop: 08/31/17 08:59 Last Admin: 07/19/17 08:57 Dose: 4 mg Docusate Sodium (Colace) 100 mg PO BID [facility] Stop: 08/31/17 08:59 Last Admin: 07/19/17 08:58 Dose: 100 mg Ferrous Sulfate (Iron) 325 mg PO BID [facility] Stop: 08/31/17 08:59 Last Admin: 07/19/17 08:58 Dose: 325 mg Folic Acid (Folate) 1 mg PO DAILY [facility] Stop: 08/31/17 08:59 Last Admin: 07/19/17 08:57 Dose: 1 mg Furosemide (Lasix) 20 mg IVP DAILY [facility] Stop: 09/16/17 11:59 Last Admin: 07/19/17 08:57 Dose: 20 mg Dextrose/Sodium Chloride (D5-0.45ns) 1,000 mls @ 75 mls/hr IV .[id number] [facility] Stop: 09/01/17 11:59 Last Admin: 07/19/17 14:40 Dose: 75 mls/hr Norepinephrine Bitartrate 4 mg (/ Sodium Chloride) 254 mls @ 0 mls/hr IV TITR [facility]ADI; Titrate PRN Reason: Protocol Stop: 09/03/17 16:29 Piperacillin Sod/Tazobactam (Sod 2.25 gm/ Sodium Chloride) 100 mls @ 100 mls/ hr IV Q6HR [facility] Stop: 09/14/17 18:44 Last Infusion: 07/19/17 12:25 Dose: Infused Vancomycin HCl 1.25 gm/ Sodium (Chloride) 250 mls @ 165 mls/hr IV Q24H [facility] Stop: 09/16/17 08:59 Last Infusion: 07/19/17 10:35 Dose: Infused Lactobacillus Rhamnosus (Culturelle 15b) 1 each PO DAILY [facility] Stop: 09/01/17 08:59 Last Admin: 07/19/17 08:57 Dose: 1 each Lactulose (Cephulac) 20 gm PO QID PRN PRN Reason: Constipation Stop: 08/30/17 22:18 Last Admin: 07/17/17 17:50 Dose: 20 gm Lorazepam (Ativan) 1 mg IVP Q4HR PRN; Protocol PRN Reason: Anxiety Stop: 09/04/17 08:31 Last Admin: 07/18/17 21:49 Dose: 1 mg Methylprednisolone Sodium Succinate (Solu-Medrol) 40 mg IVP Q8HR [facility] Stop: 09/09/17 20:59 Last Admin: 07/19/17 12:37 Dose: 40 mg Miscellaneous (Probiotic Screen) 1 ea PRN PRN PRN Reason: PROTOCOL Stop: 09/01/17 08:44 Miscellaneous (Vancomycin Iv Per Pharmacy) 1 [facility] PRN PRN PRN Reason: PROTOCOL Stop: 09/14/17 17:27 Multivitamins/Vitamin C (Theragran) 1 tab PO DAILY [facility] Stop: 08/31/17 08:59 Last Admin: 07/19/17 08:57 Dose: 1 tab Nicotine (Nicotine Transdermal System) 14 mg TD DAILY [facility] Stop: 09/04/17 08:59 Last Admin: 07/19/17 09:00 Dose: 14 mg Pantoprazole Sodium (Protonix) 40 mg IVP BID [facility] Stop: 09/13/17 08:59 Last Admin: 07/19/17 08:57 Dose: 40 mg General: Alert, Other (intubated, cachectic appearing, follows commands) HEENT: Atraumatic, Other (et in place) Neck: Supple, no JVD, no Thyromegaly Cardiovascular: Regular rate, Other (in A fib) Lungs: Other (Intubated, has bl rales) Abdomen: Bowel sounds, Soft, no Tender, no Hepatomegaly Extremities: Edema, no Clubbing Neurological: Other (Pt unable to participate in test) Skin: Other (+2 pitting edema), no Rash Psych/Mental Status: Other (no psychosis) - Procedures Procedures: Procedures Procedure Code Date INSERT EMERGENCY AIRWAY 89856 07/01/17 INSERTION OF ENDOTRACHEAL AIRWAY INTO TRACHEA, VIA OPENING [id number] 07/01/17 RESPIRATORY VENTILATION, GREATER THAN 96 CONSECUTIVE HOURS [id number] 07/01/[place] [address] 07/01/17 Assessment/Plan - Problem List Patient Problems: All Active Problems WEAKESS AND POOR ORAL INTAKE (Acute) - Assessment Assessment: * Advanced metastatic cancer * poor functional status * Anemia likely of chronic disease * Respiratory failure s/p intubation 07/05 off cpap, 07/19 back on vent iron studies cw anemia of chronic disease. hgb better today without transfusion monitor hgb and transfuse for < 7.5 very Poor prognosis Nutritional Asmnt/Malnutr-PDOC - Dietary Evaluation Malnutrition Findings (Please click <Entered> for more info): Nutritional Asmnt/Malnutrition Start: 07/03/17 13: 22 Text: Status: Complete Freq: Document 07/03/17 13:22 MMULHERN (Rec: 07/03/17 13:35 MMULHERN RAFITA- FN) Nutritional Asmnt/Malnutrition Patient General Information Nutritional Screening Consult Diagnosis UTI, Failure to thrive, hypokalemia Pertinent Medical Hx/Surgical Hx CAD, HTN, COPD, Stage 4 lung cancer, peripheral neuropathy, constipation, GERD, anxiety, low back pain Subjective Information Consult received for Failure to Thrive. Current Diet Order/ Nutrition Support Regular diet, pureed with mechaical soft Patient / S.O Not Indicated Pertinent Medications Vitamin C, dulcolax, D5-0.45 NS @ 75 ml/hr, colace, iron, folate, lactulose, theragran Pertinent Labs (07/02) P 1.5, Mg 1.7, albumin 2.9 Nutritional Hx/Data Height 1.6 m Height (Calculated Centimeters) 160.0 Current Weight (lbs) 54.885 kg Weight (Calculated Kilograms) 54.9 Weight (Calculated Grams) 58139.7 [place] Body Weight 115 % [place] Body Weight 105 Body Mass Index (BMI) 21.4 Recent Weight Change No Weight Status Approriate GI Symptoms GI Symptoms None Last BM Prior to admission Difficult in: None Food Allergies No Cultural/Ethnic/[employer] Belief None indicated Skin Integrity/Comment: Pradeep 15 Current %PO Poor (25-49%) Estimated Nutritional Goals BEE in Kcals: Using Current wt Calories/Kcals/Kg 55kg CBW (25-30kcal/kg) Kcals Calculated 2488-0776 kcal/day Protein: Using Current wt Protein g/k-1.2 gm/kg Protein Calculated 55-65 gm/day Fluid: ml 4273-0672 ml/day (1 ml/kcal) Nutritional Problem 2. Problem Problem Inadequate oral intake related to Etiology poor appetite aeb Signs/Symptoms: meeting <75% of estimated nutrient needs 1. Problem Problem Altered nutrition related lab values related to Etiology electrolyte imbalance aeb Signs/Symptoms: P 1.5, Mg 1.7 Intervention/Recommendation Comments 1. Continue pureed diet as tolerated by patient. 2. RN To assist with feedings and encourage oral intake. 3. Consider adding Boost plus between meals to optimize calorie and protein intake. Expected Outcomes/Goals Expected Outcomes/Goals Oral intake to meet >75% of needs, weight stable, nutrition labs WNL F/U MR 07/06-
[2017-07-19 19:19] LABS: pH 7.44 (7.35-7.45)
[2017-07-19 19:20] LABS: ALLEN TEST Positive
[2017-07-20] MEDS: Piperacillin Sodium/Tazobact 2.25 GM in Sodium Chloride 0.9% 100 ML IV SCH ×5 (00:45→23:45)
--- NOTE | 2017-07-20 01:19 | Consultation ---
DATE OF CONSULTATION: 07/19/2017 INPATIENT GASTROINTESTINAL CONSULTATION REFERRING PHYSICIAN: Dr. Landry. REASON FOR CONSULTATION: Anemia. HISTORY OF PRESENT ILLNESS: This is an 87-year-old female with lung cancer stage 4 and respiratory failure, who was admitted to the hospital with metabolic encephalopathy, urinary tract infection, on a ventilator. The patient was discovered to have anemia and we were asked to see the patient. No reports of any GI bleeding per staff, but occult blood was positive. The patient again is a poor historian, unable to give any meaningful history. PAST MEDICAL HISTORY: Include coronary artery disease, hypertension, COPD, lung cancer, peripheral neuropathy, constipation, GERD, anxiety, chronic back pain. PAST SURGICAL HISTORY: None to add recently. FAMILY HISTORY: Noncontributory. SOCIAL HISTORY: No tobacco, alcohol or IV drug usage. ALLERGIES: SULFA. CURRENT MEDICATIONS: Tylenol, vitamin C, baclofen, Dulcolax, Pulmicort, Colace, iron, folic acid, Lasix, lactulose, Ativan, Solu-Medrol, probiotics, vancomycin, Protonix, Zosyn. REVIEW OF SYSTEMS: Unobtainable. PHYSICAL EXAMINATION: VITAL SIGNS: Temperature of 97.7, breathing of 23, pulse of 84, blood pressure of 146/67, satting 99%. GENERAL: In no apparent distress. EYES: Anicteric. Normal conjunctivae. HEENT: Normocephalic, atraumatic. Moist mucous membranes. NECK: Soft, supple. CHEST: Coarse breath sounds. CARDIOVASCULAR: Regular rate and rhythm. ABDOMEN: Soft, nontender, nondistended. SKIN: Warm, dry. EXTREMITIES: Reveal no cyanosis. LABORATORY DATA: Show white count of 16.5, hemoglobin of 7.9, MCV of 88, platelets of 451. BUN 44, creatinine 1.3. Stool OB is positive. IMPRESSION: This is an 87-year-old female with anemia, occult blood positive, could be from GI blood loss. Options could include endoscopy to evaluate for any upper source of bleeding. If that was negative colonoscopy can also be considered as well, but we would need first to obtain consent. PLAN: 1. Agree with continuing Protonix b.i.d. 2. Follow H and H. Transfuse as needed. 3. Consider endoscopy to evaluate for any upper GI source of bleeding especially since the BUN is elevated. Colonoscopy may be necessary if the endoscopy is unrevealing. Other options could be conservative management and hospice with comfort care plan. Thank you for allowing me to participate. Please call me if any questions. JOB# [id number]
[2017-07-20] MEDS: Albuterol/Ipratropium Neb 3 ML AERS HHN SCH ×4 (01:30→18:37)
[2017-07-20] MEDS: D5-0.45NS 1,000 ML IV SCH ×2 (04:14→18:19)
[2017-07-20] MEDS: methylPREDNISolone SS 40 mg Vial IVP SCH ×3 (05:15→20:12)
[2017-07-20 06:47] LABS: ANION GAP 17.3 (7.0-16.0); BUN - UREA NITROGEN 43 mg/dL (7-25); CALCIUM SERUM 7.5 mg/dL (8.6-10.3); CARBON DIOXIDE 21.6 mEq/L (21.0-31.0); CHLORIDE 102 mEq/L (98-107); CREATININE - SERUM 1.3 mg/dL (0.6-1.2); GLUCOSE 138 mg/dL (70-105); POTASSIUM SERUM 3.9 mEq/L (3.5-5.1); SODIUM SERUM 137 mEq/L (136-145)
[2017-07-20 07:00] LABS: MEAN PLATELET VOLUME 6.9 fl; RED CELL DISTRIBUTION WIDTH 16.5 % (11.5-20.0)
[2017-07-20 07:15] LABS: % BASOPHILS 0.2 % (0.0-2.0); % EOSINOPHILS 0.3 % (0.0-5.0); % LYMPHOCYTES 2.5 % (20.0-50.0); % MONOCYTES 4.2 % (2.0-10.0); % NEUTROPHILS 92.8 % (40.0-80.0); EOSINOPHILE ABSOLUTE 0.1 Th/cmm (0.1-0.4); HEMATOCRIT 26.2 % (41.0-60); HEMOGLOBIN 8.9 gm/dL (12-16); LYMPHOCYTE ABSOLUTE 0.5 Th/cmm (1.5-3.0); MEAN CORPUSCULAR HEMOGLOBIN 30.9 pg (27.0-31.0); MEAN CORPUSCULAR HGB CONC 33.9 pg (28.0-36.0); MONOCYTE ABSOLUTE 0.8 Th/cmm (0.3-1.0); NEUTROPHILE ABSOLUTE 16.6 Th/cmm (1.8-8.0); PLATELET COUNT 410 Th/cmm (150-400); RED BLOOD COUNT 2.88 Mil/cmm (3.80-5.20)
[2017-07-20] MEDS: Budesonide 0.5 Mg/2 mL Ud HHN SCH ×2 (07:27→18:37)
--- NOTE | 2017-07-20 07:27 | GI Progress Note ---
Subjective - Review of Systems Subjective: NO ACTIVE BLEEDING EXTUBATED HAS NGT Objective - Results Result Diagrams: 07/20/17 06:00 07/20/17 06:00 Recent Labs: Laboratory Last Values WBC 18.0 Th/cmm (4.8-10.8) H 07/20/17 06:00 RBC 2.88 Mil/cmm (3.80-5.20) L 07/20/17 06:00 Hgb 8.9 gm/dL (12-16) L 07/20/17 06:00 Hct 26.2 % (41.0-60) L 07/20/17 06:00 MCV 91.0 fl (81-100) 07/20/17 06:00 MCH 30.9 pg (27.0-31.0) 07/20/17 06:00 MCHC Differential 33.9 pg (28.0-36.0) 07/20/17 06:00 RDW 16.5 % (11.5-20.0) 07/20/17 06:00 Plt Count 410 Th/cmm (150-400) H 07/20/17 06:00 MPV 6.9 fl 07/20/17 06:00 Neutrophils % 92.8 % (40.0-80.0) H 07/20/17 06:00 Band Neutrophils % 2 % (0-10) 07/17/17 04:33 Lymphocytes % 2.5 % (20.0-50.0) L 07/20/17 06:00 Monocytes % 4.2 % (2.0-10.0) 07/20/17 06:00 Eosinophils % 0.3 % (0.0-5.0) 07/20/17 06:00 Basophils % 0.2 % (0.0-2.0) 07/20/17 06:00 Neutrophils (Manual) 95 % (40-80) H 07/17/17 04:33 Lymphocytes 2 % (20-50) L 07/17/17 04:33 Monocytes 1 % (2-10) L 07/17/17 04:33 Eosinophils 0 % (0-5) 07/16/17 04:35 Basophils 0 % (0-3) 07/16/17 04:35 Hypochromia 1+ 07/14/17 05:00 Platelet Estimate INCREASED PLATELETS (NORMAL) 07/17/17 04:33 Platelet Morphology NORMAL (NORMAL) 07/16/17 04:35 Polychromasia 1+ 07/14/17 05:00 RBC Morph Micro Appear NORMAL (NORMAL) 07/16/17 04:35 Specimen Source Arterial 07/19/17 19:14 Sample Site RIGHT BRACHIAL 07/19/17 19:14 pH 7.44 (7.35-7.45) 07/19/17 19:14 pCO2 39.0 mmHg (35.0-45.0) 07/19/17 19:14 pO2 179.0 mmHg (80.0-100.0) H 07/19/17 19:14 HCO3 26.7 mEq/L (20.0-26.0) H 07/19/17 19:14 Base Excess 2.2 mEq/L (-3.0-3.0) 07/19/17 19:14 O2 Saturation 100.0 % (92.0-100.0) 07/19/17 19:14 Darius Test Positive 07/19/17 19:14 Vent Rate NA 07/18/17 10:48 Inspired O2 40 07/19/17 19:14 Tidal Volume NA 07/18/17 10:48 PEEP NA 07/18/17 10:48 Pressure (ins/psv/peep) NA 07/18/17 10:48 Critical Value SC 07/19/17 19:14 Sodium 137 mEq/L (136-145) 07/20/17 06:00 Potassium 3.9 mEq/L (3.5-5.1) 07/20/17 06:00 Chloride 102 mEq/L (98-107) 07/20/17 06:00 Carbon Dioxide 21.6 mEq/L (21.0-31.0) 07/20/17 06:00 Anion Gap 17.3 (7.0-16.0) H 07/20/17 06:00 BUN 43 mg/dL (7-25) H 07/20/17 06:00 Creatinine 1.3 mg/dL (0.6-1.2) H 07/20/17 06:00 Est GFR ( Amer) TNP 07/20/17 06:00 Est GFR (Non-Af Amer) TNP 07/20/17 06:00 BUN/Creatinine Ratio 33.1 07/20/17 06:00 Glucose 138 mg/dL (70-105) H 07/20/17 06:00 POC Glucose 177 MG/DL (70 - 105) H 07/14/17 11:26 Hemoglobin A1c % 5.2 % (4.0-6.0) 07/17/17 04:33 Whole Bld Lactic Acid 3.99 mmol/L (0.60-1.99) H* 07/05/17 13:00 Calcium 7.5 mg/dL (8.6-10.3) L 07/20/17 06:00 Phosphorus 1.5 mg/dL (2.5-5.0) L 07/02/17 05:20 Magnesium 1.7 mg/dL (1.9-2.7) L 07/02/17 05:20 Iron 21 07/03/17 05:48 TIBC 131 07/03/17 05:48 Iron Saturation 16 07/03/17 05:48 Unsaturated IBC 110 07/03/17 05:48 Ferritin 334 ng/mL (15-150) H 07/03/17 05:48 Total Bilirubin 0.5 mg/dL (0.3-1.0) 07/05/17 06:05 AST 16 U/L (13-39) 07/05/17 06:05 ALT 8 U/L (7-52) 07/05/17 06:05 Alkaline Phosphatase 66 U/L (34-104) 07/05/17 06:05 Troponin I 0.09 ng/mL (0.01-0.05) H* D 07/04/17 05:50 B-Natriuretic Peptide 215.0 pg/mL (5.0-100.0) H 07/01/17 14:10 Total Protein 5.6 gm/dL (6.0-8.3) L 07/05/17 06:05 Albumin 2.6 gm/dL (3.7-5.3) L 07/05/17 06:05 Globulin 3.0 gm/dL 07/05/17 06:05 Albumin/Globulin Ratio 0.9 (1.0-1.8) L 07/05/17 06:05 Triglycerides 107 mg/dL (<150) 07/04/17 05:50 Cholesterol 114 mg/dL (<200) 07/04/17 05:50 LDL Cholesterol Direct 59 mg/dL (75-193) L 07/04/17 05:50 HDL Cholesterol 31 mg/dL (23-92) 07/04/17 05:50 TSH 1.46 uIU/ml (0.34-5.60) 07/04/17 05:50 Urine Source CATH 07/05/17 18:30 Urine Color YELLOW 07/05/17 18:30 Urine Clarity CLOUDY (CLEAR) H 07/05/17 18:30 Urine pH 5.5 (4.6 - 8.0) 07/05/17 18:30 Ur Specific Abrams 1.025 (1.005-1.030) 07/05/17 18:30 Urine Protein 30 mg/dL (NEGATIVE) H 07/05/17 18:30 Urine Glucose (UA) NEGATIVE mg/dL (NEGATIVE) 07/05/17 18:30 Urine Ketones TRACE mg/dL (NEGATIVE) 07/05/17 18:30 Urine Blood SMALL (NEGATIVE) H 07/05/17 18:30 Urine Nitrate NEGATIVE (NEGATIVE) 07/05/17 18:30 Urine Bilirubin NEGATIVE (NEGATIVE) 07/05/17 18:30 Urine Urobilinogen 0.2 E.U./dL (0.2 - 1.0) 07/05/17 18:30 Ur Leukocyte Esterase LARGE (NEGATIVE) H 07/05/17 18:30 Urine RBC 2-5 /hpf (0-5) 07/05/17 18:30 Urine WBC >100 /hpf (0-5) H 07/05/17 18:30 Ur Epithelial Cells FEW /lpf (FEW) 07/05/17 18:30 Urine Bacteria FEW /hpf (NONE SEEN) 07/05/17 18:30 Urine Yeast FEW /hpf (NONE SEEN) H 07/05/17 18:30 Stool Occult Blood POSITIVE (NEGATIVE) H 07/13/17 19:00 Vancomycin Trough 29.3 ug/mL (5-10) H 07/20/17 06:00 - Physical Exam Vitals and I&O: Vital Signs Temp 97.6 F 07/20/17 04:00 Pulse 74 07/20/17 06:00 Resp 20 07/20/17 06:00 BP 155/68 07/20/17 06:00 Pulse Ox 100 07/20/17 06:00 Intake & Output 07/19/17 07/20/17 07/20/17 18:59 06:59 18:59 Intake Total 2400 1982.5 Output Total 1750 1300 Balance 650 682.5 Weight (lbs) 72.66 kg 72.802 kg Intake: Intake, IV Amount 1450 1232.5 D5-0.45NS 1,000 ml @ 75 1000 1132.5 mls/hr IV .[id number] [facility] Rx #:[id number] Piperacillin Sodium/ 200 100 Tazobact 2.25 gm In Sodium Chloride 0.9% 100 ml @ 100 mls/hr IV Q6HR [facility] Rx#:[id number] Vancomycin HCl 1.25 gm In 250 Sodium Chloride 0.9% 250 ml @ 165 mls/hr IV Q24H [facility] Rx#:[id number] Tube Feeding 600 600 Other 350 150 Output: Urine 1750 1300 Other: # Bowel Movements 1 0 Stool Characteristics Soft Brown Weight Source Bedscale Bedscale Active Medications: Current Medications Acetaminophen (Tylenol) 650 mg PO Q4H PRN PRN Reason: Fever > 101 Stop: 08/30/17 22:06 Last Admin: 07/18/17 11:40 Dose: 650 mg Albuterol/Ipratropium (Duoneb Neb) 3 ml HHN Q4HRT PRN PRN Reason: Wheezing Stop: 08/30/17 22:13 Albuterol/Ipratropium (Duoneb Neb) 3 ml HHN Q6HRT [facility] Stop: 08/31/17 00:59 Last Admin: 07/20/17 01:30 Dose: 3 ml Ascorbic Acid (Vitamin C) 500 mg PO DAILY [facility] Stop: 08/31/17 08:59 Last Admin: 07/19/17 08:58 Dose: 500 mg Baclofen (Lioresal) 5 mg PO TID [facility] Stop: 09/06/17 08:59 Last Admin: 07/19/17 20:53 Dose: 5 mg Bisacodyl (Dulcolax 10 Mg Supp) 10 mg RC HS PRN PRN Reason: BOWEL CARE MANAGEMENT Stop: 08/30/17 22:18 Budesonide (Pulmicort) 0.5 mg HHN BIDRT [facility] Stop: 08/31/17 18:59 Last Admin: 07/19/17 18:20 Dose: 0.5 mg Cyproheptadine HCl (Periactin) 4 mg PO BID [facility] Stop: 08/31/17 08:59 Last Admin: 07/19/17 16:58 Dose: 4 mg Docusate Sodium (Colace) 100 mg PO BID [facility] Stop: 08/31/17 08:59 Last Admin: 07/19/17 16:59 Dose: 100 mg Ferrous Sulfate (Iron) 325 mg PO BID [facility] Stop: 08/31/17 08:59 Last Admin: 07/19/17 16:58 Dose: 325 mg Folic Acid (Folate) 1 mg PO DAILY [facility] Stop: 08/31/17 08:59 Last Admin: 07/19/17 08:57 Dose: 1 mg Furosemide (Lasix) 20 mg IVP DAILY [facility] Stop: 09/16/17 11:59 Last Admin: 07/19/17 08:57 Dose: 20 mg Dextrose/Sodium Chloride (D5-0.45ns) 1,000 mls @ 75 mls/hr IV .[id number] [facility] Stop: 09/01/17 11:59 Last Infusion: 07/20/17 06:00 Dose: 75 mls/hr Norepinephrine Bitartrate 4 mg (/ Sodium Chloride) 254 mls @ 0 mls/hr IV TITR [facility]; Titrate PRN Reason: Protocol Stop: 09/03/17 16:29 Piperacillin Sod/Tazobactam (Sod 2.25 gm/ Sodium Chloride) 100 mls @ 100 mls/ hr IV Q6HR [facility] Stop: 09/14/17 18:44 Last Admin: 07/20/17 05:54 Dose: 100 mls/hr Vancomycin HCl 1.25 gm/ Sodium (Chloride) 250 mls @ 165 mls/hr IV Q24H [facility] Stop: 09/16/17 08:59 Last Infusion: 07/19/17 10:35 Dose: Infused Lactobacillus Rhamnosus (Culturelle 15b) 1 each PO DAILY [facility] Stop: 09/01/17 08:59 Last Admin: 07/19/17 08:57 Dose: 1 each Lactulose (Cephulac) 20 gm PO QID PRN PRN Reason: Constipation Stop: 08/30/17 22:18 Last Admin: 07/17/17 17:50 Dose: 20 gm Lorazepam (Ativan) 1 mg IVP Q4HR PRN; Protocol PRN Reason: Anxiety Stop: 09/04/17 08:31 Last Admin: 07/18/17 21:49 Dose: 1 mg Methylprednisolone Sodium Succinate (Solu-Medrol) 40 mg IVP Q8HR [facility] Stop: 09/09/17 20:59 Last Admin: 07/20/17 05:15 Dose: 40 mg Miscellaneous (Probiotic Screen) 1 ea PRN PRN PRN Reason: PROTOCOL Stop: 09/01/17 08:44 Miscellaneous (Vancomycin Iv Per Pharmacy) 1 [facility] PRN PRN PRN Reason: PROTOCOL Stop: 09/14/17 17:27 Multivitamins/Vitamin C (Theragran) 1 tab PO DAILY [facility] Stop: 08/31/17 08:59 Last Admin: 07/19/17 08:57 Dose: 1 tab Nicotine (Nicotine Transdermal System) 14 mg TD DAILY [facility] Stop: 09/04/17 08:59 Last Admin: 07/19/17 09:00 Dose: 14 mg Pantoprazole Sodium (Protonix) 40 mg IVP BID [facility] Stop: 09/13/17 08:59 Last Admin: 07/19/17 16:58 Dose: 40 mg General: Alert, Other (intubated, cachectic appearing, follows commands) HEENT: Atraumatic, Other (et in place) Neck: Supple, no JVD, no Thyromegaly Cardiovascular: Regular rate, Other (in A fib) Lungs: Other (Intubated, has bl rales) Abdomen: Bowel sounds, Soft, no Tender, no Hepatomegaly Extremities: Edema, no Clubbing Neurological: Other (Pt unable to participate in test) Skin: Other (+2 pitting edema), no Rash Psych/Mental Status: Other (no psychosis) - Procedures Procedures: Procedures Procedure Code Date INSERT EMERGENCY AIRWAY 83539 07/01/17 INSERTION OF ENDOTRACHEAL AIRWAY INTO TRACHEA, VIA OPENING [id number] 07/01/17 RESPIRATORY VENTILATION, GREATER THAN 96 CONSECUTIVE HOURS [id number] 07/01/17 VENT MGMT INPAT INIT DAY 38382 07/01/17 Assessment/Plan - Problem List Patient Problems: All Active Problems WEAKESS AND POOR ORAL INTAKE (Acute) - Assessment Assessment: 87 YO FEMALE WITH LUNG CA ANEMIA WITH OB + STOOL NO ACTIVE BLEEDING ENDOSCOPIC WORK UP CAN BE DONE HOWEVER PT IS HIGH RISK 1.FOLLOW H/H 2.CONT PROTONIX 3.CONSIDER ENDOSCOPIC WORK UP IF ACTIVE BLEED OR SIG DROP IN HGB
[2017-07-20] MEDS: Ferrous Sulfate 325 MG TAB PO SCH ×2 (08:10→16:34)
[2017-07-20] MEDS: Lactobacillus Rhamnosus GG 15 Billion CFU CAP.SPRINK PO SCH (08:11)
[2017-07-20] MEDS: Multivitamin Tab PO SCH (08:11)
[2017-07-20] MEDS: Nicotine 14 mg/24 hr Tdm TD SCH (08:11)
[2017-07-20] MEDS: Cyproheptadine 4 mg Tab PO SCH ×2 (08:11→16:34)
--- NOTE | 2017-07-20 08:32 | General Progress Note ---
Subjective - Review of Systems Service Date: 07/20/17 Subjective: Pt seen and eval. In bed. Seen by jayson, bren, and heme onc, all of whom agree with hospice care. Dr. Montanez discussed poor prog with son. No fevers or chills. WBC elevated, but improving. No falls. Pt went into A fib pm 07/04/16, and was transferred to ICU on digoxin. Intubated on 07/05/17. Was on Amiodarone and Levophed drip, both of which are off as of 07/06/17. She had large bm night of 07/10/17. Pt was extubated night of 07/19/17. On nasal cannula O2 at 2 L now. Awake, but very weak. Objective - Results Result Diagrams: 07/20/17 06:00 07/20/17 06:00 Recent Labs: Laboratory Last Values WBC 18.0 Th/cmm (4.8-10.8) H 07/20/17 06:00 RBC 2.88 Mil/cmm (3.80-5.20) L 07/20/17 06:00 Hgb 8.9 gm/dL (12-16) L 07/20/17 06:00 Hct 26.2 % (41.0-60) L 07/20/17 06:00 MCV 91.0 fl (81-100) 07/20/17 06:00 MCH 30.9 pg (27.0-31.0) 07/20/17 06:00 MCHC Differential 33.9 pg (28.0-36.0) 07/20/17 06:00 RDW 16.5 % (11.5-20.0) 07/20/17 06:00 Plt Count 410 Th/cmm (150-400) H 07/20/17 06:00 MPV 6.9 fl 07/20/17 06:00 Neutrophils % 92.8 % (40.0-80.0) H 07/20/17 06:00 Band Neutrophils % 2 % (0-10) 07/17/17 04:33 Lymphocytes % 2.5 % (20.0-50.0) L 07/20/17 06:00 Monocytes % 4.2 % (2.0-10.0) 07/20/17 06:00 Eosinophils % 0.3 % (0.0-5.0) 07/20/17 06:00 Basophils % 0.2 % (0.0-2.0) 07/20/17 06:00 Neutrophils (Manual) 95 % (40-80) H 07/17/17 04:33 Lymphocytes 2 % (20-50) L 07/17/17 04:33 Monocytes 1 % (2-10) L 07/17/17 04:33 Eosinophils 0 % (0-5) 07/16/17 04:35 Basophils 0 % (0-3) 07/16/17 04:35 Hypochromia 1+ 07/14/17 05:00 Platelet Estimate INCREASED PLATELETS (NORMAL) 07/17/17 04:33 Platelet Morphology NORMAL (NORMAL) 07/16/17 04:35 Polychromasia 1+ 07/14/17 05:00 RBC Morph Micro Appear NORMAL (NORMAL) 07/16/17 04:35 Specimen Source Arterial 07/19/17 19:14 Sample Site RIGHT BRACHIAL 07/19/17 19:14 pH 7.44 (7.35-7.45) 07/19/17 19:14 pCO2 39.0 mmHg (35.0-45.0) 07/19/17 19:14 pO2 179.0 mmHg (80.0-100.0) H 07/19/17 19:14 HCO3 26.7 mEq/L (20.0-26.0) H 07/19/17 19:14 Base Excess 2.2 mEq/L (-3.0-3.0) 07/19/17 19:14 O2 Saturation 100.0 % (92.0-100.0) 07/19/17 19:14 Darius Test Positive 07/19/17 19:14 Vent Rate NA 07/18/17 10:48 Inspired O2 40 07/19/17 19:14 Tidal Volume NA 07/18/17 10:48 PEEP NA 07/18/17 10:48 Pressure (ins/psv/peep) NA 07/18/17 10:48 Critical Value SC 07/19/17 19:14 Sodium 137 mEq/L (136-145) 07/20/17 06:00 Potassium 3.9 mEq/L (3.5-5.1) 07/20/17 06:00 Chloride 102 mEq/L (98-107) 07/20/17 06:00 Carbon Dioxide 21.6 mEq/L (21.0-31.0) 07/20/17 06:00 Anion Gap 17.3 (7.0-16.0) H 07/20/17 06:00 BUN 43 mg/dL (7-25) H 07/20/17 06:00 Creatinine 1.3 mg/dL (0.6-1.2) H 07/20/17 06:00 Est GFR ( Amer) TNP 07/20/17 06:00 Est GFR (Non-Af Amer) TNP 07/20/17 06:00 BUN/Creatinine Ratio 33.1 07/20/17 06:00 Glucose 138 mg/dL (70-105) H 07/20/17 06:00 POC Glucose 177 MG/DL (70 - 105) H 07/14/17 11:26 Hemoglobin A1c % 5.2 % (4.0-6.0) 07/17/17 04:33 Whole Bld Lactic Acid 3.99 mmol/L (0.60-1.99) H* 07/05/17 13:00 Calcium 7.5 mg/dL (8.6-10.3) L 07/20/17 06:00 Phosphorus 1.5 mg/dL (2.5-5.0) L 07/02/17 05:20 Magnesium 1.7 mg/dL (1.9-2.7) L 07/02/17 05:20 Iron 21 07/03/17 05:48 TIBC 131 07/03/17 05:48 Iron Saturation 16 07/03/17 05:48 Unsaturated IBC 110 07/03/17 05:48 Ferritin 334 ng/mL (15-150) H 07/03/17 05:48 Total Bilirubin 0.5 mg/dL (0.3-1.0) 07/05/17 06:05 AST 16 U/L (13-39) 07/05/17 06:05 ALT 8 U/L (7-52) 07/05/17 06:05 Alkaline Phosphatase 66 U/L (34-104) 07/05/17 06:05 Troponin I 0.09 ng/mL (0.01-0.05) H* D 07/04/17 05:50 B-Natriuretic Peptide 215.0 pg/mL (5.0-100.0) H 07/01/17 14:10 Total Protein 5.6 gm/dL (6.0-8.3) L 07/05/17 06:05 Albumin 2.6 gm/dL (3.7-5.3) L 07/05/17 06:05 Globulin 3.0 gm/dL 07/05/17 06:05 Albumin/Globulin Ratio 0.9 (1.0-1.8) L 07/05/17 06:05 Triglycerides 107 mg/dL (<150) 07/04/17 05:50 Cholesterol 114 mg/dL (<200) 07/04/17 05:50 LDL Cholesterol Direct 59 mg/dL (75-193) L 07/04/17 05:50 HDL Cholesterol 31 mg/dL (23-92) 07/04/17 05:50 TSH 1.46 uIU/ml (0.34-5.60) 07/04/17 05:50 Urine Source CATH 07/05/17 18:30 Urine Color YELLOW 07/05/17 18:30 Urine Clarity CLOUDY (CLEAR) H 07/05/17 18:30 Urine pH 5.5 (4.6 - 8.0) 07/05/17 18:30 Ur Specific Mcdonald 1.025 (1.005-1.030) 07/05/17 18:30 Urine Protein 30 mg/dL (NEGATIVE) H 07/05/17 18:30 Urine Glucose (UA) NEGATIVE mg/dL (NEGATIVE) 07/05/17 18:30 Urine Ketones TRACE mg/dL (NEGATIVE) 07/05/17 18:30 Urine Blood SMALL (NEGATIVE) H 07/05/17 18:30 Urine Nitrate NEGATIVE (NEGATIVE) 07/05/17 18:30 Urine Bilirubin NEGATIVE (NEGATIVE) 07/05/17 18:30 Urine Urobilinogen 0.2 E.U./dL (0.2 - 1.0) 07/05/17 18:30 Ur Leukocyte Esterase LARGE (NEGATIVE) H 07/05/17 18:30 Urine RBC 2-5 /hpf (0-5) 07/05/17 18:30 Urine WBC >100 /hpf (0-5) H 07/05/17 18:30 Ur Epithelial Cells FEW /lpf (FEW) 07/05/17 18:30 Urine Bacteria FEW /hpf (NONE SEEN) 07/05/17 18:30 Urine Yeast FEW /hpf (NONE SEEN) H 07/05/17 18:30 Stool Occult Blood POSITIVE (NEGATIVE) H 07/13/17 19:00 Vancomycin Trough 29.3 ug/mL (5-10) H 07/20/17 06:00 - Physical Exam Vitals and I&O: Vital Signs Temp 97.6 F 07/20/17 04:00 Pulse 79 07/20/17 07:46 Resp 24 07/20/17 07:46 BP 167/68 07/20/17 08:10 Pulse Ox 100 07/20/17 07:46 Intake & Output 07/19/17 07/20/17 07/20/17 18:59 06:59 18:59 Intake Total 2400 1982.5 Output Total 1750 1300 Balance 650 682.5 Weight (lbs) 72.66 kg 72.802 kg Intake: Intake, IV Amount 1450 1232.5 D5-0.45NS 1,000 ml @ 75 1000 1132.5 mls/hr IV .[id number] [facility] Rx #:[id number] Piperacillin Sodium/ 200 100 Tazobact 2.25 gm In Sodium Chloride 0.9% 100 ml @ 100 mls/hr IV Q6HR [facility] Rx#:[id number] Vancomycin HCl 1.25 gm In 250 Sodium Chloride 0.9% 250 ml @ 165 mls/hr IV Q24H [facility] Rx#:[id number] Tube Feeding 600 600 Other 350 150 Output: Urine 1750 1300 Other: # Bowel Movements 1 0 Stool Characteristics Soft Brown Weight Source Bedscale Bedscale Active Medications: Current Medications Acetaminophen (Tylenol) 650 mg PO Q4H PRN PRN Reason: Fever > 101 Stop: 08/30/17 22:06 Last Admin: 07/18/17 11:40 Dose: 650 mg Albuterol/Ipratropium (Duoneb Neb) 3 ml HHN Q4HRT PRN PRN Reason: Wheezing Stop: 08/30/17 22:13 Albuterol/Ipratropium (Duoneb Neb) 3 ml HHN Q6HRT [facility] Stop: 08/31/17 00:59 Last Admin: 07/20/17 07:27 Dose: 3 ml Ascorbic Acid (Vitamin C) 500 mg PO DAILY [facility] Stop: 08/31/17 08:59 Last Admin: 07/20/17 08:11 Dose: 500 mg Baclofen (Lioresal) 5 mg PO TID [facility] Stop: 09/06/17 08:59 Last Admin: 07/20/17 08:08 Dose: 5 mg Bisacodyl (Dulcolax 10 Mg Supp) 10 mg RC HS PRN PRN Reason: BOWEL CARE MANAGEMENT Stop: 08/30/17 22:18 Budesonide (Pulmicort) 0.5 mg HHN BIDRT [facility] Stop: 08/31/17 18:59 Last Admin: 07/20/17 07:27 Dose: 0.5 mg Cyproheptadine HCl (Periactin) 4 mg PO BID [facility] Stop: 08/31/17 08:59 Last Admin: 07/20/17 08:11 Dose: 4 mg Docusate Sodium (Colace) 100 mg PO BID [facility] Stop: 08/31/17 08:59 Last Admin: 07/20/17 08:11 Dose: 100 mg Ferrous Sulfate (Iron) 325 mg PO BID [facility] Stop: 08/31/17 08:59 Last Admin: 07/20/17 08:10 Dose: 325 mg Folic Acid (Folate) 1 mg PO DAILY [facility] Stop: 08/31/17 08:59 Last Admin: 07/20/17 08:11 Dose: 1 mg Furosemide (Lasix) 20 mg IVP DAILY [facility] Stop: 09/16/17 11:59 Last Admin: 07/20/17 08:10 Dose: 20 mg Dextrose/Sodium Chloride (D5-0.45ns) 1,000 mls @ 75 mls/hr IV .[id number] [facility] Stop: 09/01/17 11:59 Last Infusion: 07/20/17 06:00 Dose: 75 mls/hr Norepinephrine Bitartrate 4 mg (/ Sodium Chloride) 254 mls @ 0 mls/hr IV TITR [facility]; Titrate PRN Reason: Protocol Stop: 09/03/17 16:29 Piperacillin Sod/Tazobactam (Sod 2.25 gm/ Sodium Chloride) 100 mls @ 100 mls/ hr IV Q6HR [facility] Stop: 09/14/17 18:44 Last Admin: 07/20/17 05:54 Dose: 100 mls/hr Vancomycin HCl 1.25 gm/ Sodium (Chloride) 250 mls @ 165 mls/hr IV Q24H [facility] Stop: 09/16/17 08:59 Last Infusion: 07/19/17 10:35 Dose: Infused Lactobacillus Rhamnosus (Culturelle 15b) 1 each PO DAILY [facility] Stop: 09/01/17 08:59 Last Admin: 07/20/17 08:11 Dose: 1 each Lactulose (Cephulac) 20 gm PO QID PRN PRN Reason: Constipation Stop: 08/30/17 22:18 Last Admin: 07/17/17 17:50 Dose: 20 gm Lorazepam (Ativan) 1 mg IVP Q4HR PRN; Protocol PRN Reason: Anxiety Stop: 09/04/17 08:31 Last Admin: 07/18/17 21:49 Dose: 1 mg Methylprednisolone Sodium Succinate (Solu-Medrol) 40 mg IVP Q8HR [facility] Stop: 09/09/17 20:59 Last Admin: 07/20/17 05:15 Dose: 40 mg Miscellaneous (Probiotic Screen) 1 [facility] PRN PRN PRN Reason: PROTOCOL Stop: 09/01/17 08:44 Miscellaneous (Vancomycin Iv Per Pharmacy) 1 [facility] PRN PRN PRN Reason: PROTOCOL Stop: 09/14/17 17:27 Multivitamins/Vitamin C (Theragran) 1 tab PO DAILY [facility] Stop: 08/31/17 08:59 Last Admin: 07/20/17 08:11 Dose: 1 tab Nicotine (Nicotine Transdermal System) 14 mg TD DAILY [facility] Stop: 09/04/17 08:59 Last Admin: 07/20/17 08:11 Dose: 14 mg Pantoprazole Sodium (Protonix) 40 mg IVP BID [facility] Stop: 09/13/17 08:59 Last Admin: 07/20/17 08:10 Dose: 40 mg General: Alert, Other (awake now. NAD) HEENT: Atraumatic, Other (et in place) Neck: Supple, no JVD, no Thyromegaly Cardiovascular: Regular rate, Other (in A fib) Lungs: Other (Intubated, has bl rales) Abdomen: Bowel sounds, Soft, no Tender, no Hepatomegaly Extremities: Edema, no Clubbing Neurological: Other (Pt unable to participate in test) Skin: Other (+2 pitting edema), no Rash Psych/Mental Status: Other (no psychosis) - Procedures Procedures: Procedures Procedure Code Date INSERT EMERGENCY AIRWAY 96577 07/01/17 INSERTION OF ENDOTRACHEAL AIRWAY INTO TRACHEA, VIA OPENING [id number] 07/01/17 RESPIRATORY VENTILATION, GREATER THAN 96 CONSECUTIVE HOURS [id number] 07/01/17 VENT MGMT INPAT INIT DAY 87331 07/01/17 Assessment/Plan - Problem List Patient Problems: All Active Problems WEAKESS AND POOR ORAL INTAKE (Acute) - Assessment Assessment: Septic shock A fib with RVR Fail to thrive Stage 4 lung ca Sepsis due to E Coli UTI ME Ch pain syn Anemia of ch ill Hypernatremia Hypokalemia Type 2 ID A fib - Plan Plan: Pt holds a poor progonosis. Been trying to communicate poor prognosis to the son. He wants "everything done. " Cardio, Pulm, and Heme Onc seeing pt, all of whom agree with comfort care/ hospice. On IV Zosyn and Vanco. Has been on Amiodarone and Levphed drip in ICU-now off as off 07/06/17. Intubated on 07/05/17; extubated on night of 07/19/17 Elec corrected. I's and O's reviewed. Pt holds a poor prognosis. Son still wants everything done. No drips. Pt responsive. Weaning tried on 07/10/17, but could not tolerate it. But ultimately extubated on 07/19/17. Hgb dropping. Holding Xarelto as of 07/11/17. Checked stool OB times 2-both postive. GI on the case. FU on CBC and Chem 7. Again, advised son of the grave prognosis and the fact that pt has poor quality of life and it will not improve. He still wants "everything done." As of 07/18/17, she was on CPAP, then extubated night on 07/19/17. Consider swallow eval tomorrow when she's more alert. GI following for stool OB times 2. Nutritional Asmnt/Malnutr-PDOC - Dietary Evaluation Malnutrition Findings (Please click <Entered> for more info): Nutritional Asmnt/Malnutrition Start: 07/03/17 13: 22 Text: Status: Complete Freq: Document 07/03/17 13:22 URBAN (Rec: 07/03/17 13:35 URBAN ULLOA [email or web address]) Nutritional Asmnt/Malnutrition Patient General Information Nutritional Screening Consult Diagnosis UTI, Failure to thrive, hypokalemia Pertinent Medical Hx/Surgical Hx CAD, HTN, COPD, Stage 4 lung cancer, peripheral neuropathy, constipation, GERD, anxiety, low back pain Subjective Information Consult received for Failure to Thrive. Current Diet Order/ Nutrition Support Regular diet, pureed with mechaical soft Patient / S.O Not Indicated Pertinent Medications Vitamin C, dulcolax, D5-0.45 NS @ 75 ml/hr, colace, iron, folate, lactulose, theragran Pertinent Labs (07/02) P 1.5, Mg 1.7, albumin 2.9 Nutritional Hx/Data Height 1.6 m Height (Calculated Centimeters) 160.0 Current Weight (lbs) 54.885 kg Weight (Calculated Kilograms) 54.9 Weight (Calculated Grams) 00117.7 [place] Body Weight 115 % [place] Body Weight 105 Body Mass Index (BMI) 21.4 Recent Weight Change No Weight Status Approriate GI Symptoms GI Symptoms None Last BM Prior to admission Difficult in: None Food Allergies No Cultural/Ethnic/Hindu Belief None indicated Skin Integrity/Comment: Pradeep 15 Current %PO Poor (25-49%) Estimated Nutritional Goals BEE in Kcals: Using Current wt Calories/Kcals/Kg 55kg CBW (25-30kcal/kg) Kcals Calculated 6327-6797 kcal/day Protein: Using Current wt Protein g/k-1.2 gm/kg Protein Calculated 55-65 gm/day Fluid: ml 6271-2888 ml/day (1 ml/kcal) Nutritional Problem 2. Problem Problem Inadequate oral intake related to Etiology poor appetite aeb Signs/Symptoms: meeting <75% of estimated nutrient needs 1. Problem Problem Altered nutrition related lab values related to Etiology electrolyte imbalance aeb Signs/Symptoms: P 1.5, Mg 1.7 Intervention/Recommendation Comments 1. Continue pureed diet as tolerated by patient. 2. RN To assist with feedings and encourage oral intake. 3. Consider adding Boost plus between meals to optimize calorie and protein intake. Expected Outcomes/Goals Expected Outcomes/Goals Oral intake to meet >75% of needs, weight stable, nutrition labs WNL F/U MR 07/06-
--- NOTE | 2017-07-20 09:33 | Infectious Disease Prog Note ---
Infectious Disease Subjective - Review of Systems Service Date: 07/20/17 Subjective: There is no new change. Patient remains intubated orally, on the ventilator support. No fever, worsening of leukocytosis is improving. Infectious Disease Objective - Results Result Diagrams: 07/21/17 04:30 07/21/17 04:30 Recent Labs: Laboratory Last Values WBC 18.0 Th/cmm (4.8-10.8) H 07/20/17 06:00 RBC 2.88 Mil/cmm (3.80-5.20) L 07/20/17 06:00 Hgb 8.9 gm/dL (12-16) L 07/20/17 06:00 Hct 26.2 % (41.0-60) L 07/20/17 06:00 MCV 91.0 fl (81-100) 07/20/17 06:00 MCH 30.9 pg (27.0-31.0) 07/20/17 06:00 MCHC Differential 33.9 pg (28.0-36.0) 07/20/17 06:00 RDW 16.5 % (11.5-20.0) 07/20/17 06:00 Plt Count 410 Th/cmm (150-400) H 07/20/17 06:00 MPV 6.9 fl 07/20/17 06:00 Neutrophils % 92.8 % (40.0-80.0) H 07/20/17 06:00 Band Neutrophils % 2 % (0-10) 07/17/17 04:33 Lymphocytes % 2.5 % (20.0-50.0) L 07/20/17 06:00 Monocytes % 4.2 % (2.0-10.0) 07/20/17 06:00 Eosinophils % 0.3 % (0.0-5.0) 07/20/17 06:00 Basophils % 0.2 % (0.0-2.0) 07/20/17 06:00 Neutrophils (Manual) 95 % (40-80) H 07/17/17 04:33 Lymphocytes 2 % (20-50) L 07/17/17 04:33 Monocytes 1 % (2-10) L 07/17/17 04:33 Eosinophils 0 % (0-5) 07/16/17 04:35 Basophils 0 % (0-3) 07/16/17 04:35 Hypochromia 1+ 07/14/17 05:00 Platelet Estimate INCREASED PLATELETS (NORMAL) 07/17/17 04:33 Platelet Morphology NORMAL (NORMAL) 07/16/17 04:35 Polychromasia 1+ 07/14/17 05:00 RBC Morph Micro Appear NORMAL (NORMAL) 07/16/17 04:35 Specimen Source Arterial 07/19/17 19:14 Sample Site RIGHT BRACHIAL 07/19/17 19:14 pH 7.44 (7.35-7.45) 07/19/17 19:14 pCO2 39.0 mmHg (35.0-45.0) 07/19/17 19:14 pO2 179.0 mmHg (80.0-100.0) H 07/19/17 19:14 HCO3 26.7 mEq/L (20.0-26.0) H 07/19/17 19:14 Base Excess 2.2 mEq/L (-3.0-3.0) 07/19/17 19:14 O2 Saturation 100.0 % (92.0-100.0) 07/19/17 19:14 Darius Test Positive 07/19/17 19:14 Vent Rate NA 07/18/17 10:48 Inspired O2 40 07/19/17 19:14 Tidal Volume NA 07/18/17 10:48 PEEP NA 07/18/17 10:48 Pressure (ins/psv/peep) NA 07/18/17 10:48 Critical Value SC 07/19/17 19:14 Sodium 137 mEq/L (136-145) 07/20/17 06:00 Potassium 3.9 mEq/L (3.5-5.1) 07/20/17 06:00 Chloride 102 mEq/L (98-107) 07/20/17 06:00 Carbon Dioxide 21.6 mEq/L (21.0-31.0) 07/20/17 06:00 Anion Gap 17.3 (7.0-16.0) H 07/20/17 06:00 BUN 43 mg/dL (7-25) H 07/20/17 06:00 Creatinine 1.3 mg/dL (0.6-1.2) H 07/20/17 06:00 Est GFR ( Amer) TNP 07/20/17 06:00 Est GFR (Non-Af Amer) TNP 07/20/17 06:00 BUN/Creatinine Ratio 33.1 07/20/17 06:00 Glucose 138 mg/dL (70-105) H 07/20/17 06:00 POC Glucose 177 MG/DL (70 - 105) H 07/14/17 11:26 Hemoglobin A1c % 5.2 % (4.0-6.0) 07/17/17 04:33 Whole Bld Lactic Acid 3.99 mmol/L (0.60-1.99) H* 07/05/17 13:00 Calcium 7.5 mg/dL (8.6-10.3) L 07/20/17 06:00 Phosphorus 1.5 mg/dL (2.5-5.0) L 07/02/17 05:20 Magnesium 1.7 mg/dL (1.9-2.7) L 07/02/17 05:20 Iron 21 07/03/17 05:48 TIBC 131 07/03/17 05:48 Iron Saturation 16 07/03/17 05:48 Unsaturated IBC 110 07/03/17 05:48 Ferritin 334 ng/mL (15-150) H 07/03/17 05:48 Total Bilirubin 0.5 mg/dL (0.3-1.0) 07/05/17 06:05 AST 16 U/L (13-39) 07/05/17 06:05 ALT 8 U/L (7-52) 07/05/17 06:05 Alkaline Phosphatase 66 U/L (34-104) 07/05/17 06:05 Troponin I 0.09 ng/mL (0.01-0.05) H* D 07/04/17 05:50 B-Natriuretic Peptide 215.0 pg/mL (5.0-100.0) H 07/01/17 14:10 Total Protein 5.6 gm/dL (6.0-8.3) L 07/05/17 06:05 Albumin 2.6 gm/dL (3.7-5.3) L 07/05/17 06:05 Globulin 3.0 gm/dL 07/05/17 06:05 Albumin/Globulin Ratio 0.9 (1.0-1.8) L 07/05/17 06:05 Triglycerides 107 mg/dL (<150) 07/04/17 05:50 Cholesterol 114 mg/dL (<200) 07/04/17 05:50 LDL Cholesterol Direct 59 mg/dL (75-193) L 07/04/17 05:50 HDL Cholesterol 31 mg/dL (23-92) 07/04/17 05:50 TSH 1.46 uIU/ml (0.34-5.60) 07/04/17 05:50 Urine Source CATH 07/05/17 18:30 Urine Color YELLOW 07/05/17 18:30 Urine Clarity CLOUDY (CLEAR) H 07/05/17 18:30 Urine pH 5.5 (4.6 - 8.0) 07/05/17 18:30 Ur Specific [place] 1.025 (1.005-1.030) 07/05/17 18:30 Urine Protein 30 mg/dL (NEGATIVE) H 07/05/17 18:30 Urine Glucose (UA) NEGATIVE mg/dL (NEGATIVE) 07/05/17 18:30 Urine Ketones TRACE mg/dL (NEGATIVE) 07/05/17 18:30 Urine Blood SMALL (NEGATIVE) H 07/05/17 18:30 Urine Nitrate NEGATIVE (NEGATIVE) 07/05/17 18:30 Urine Bilirubin NEGATIVE (NEGATIVE) 07/05/17 18:30 Urine Urobilinogen 0.2 E.U./dL (0.2 - 1.0) 07/05/17 18:30 Ur Leukocyte Esterase LARGE (NEGATIVE) H 07/05/17 18:30 Urine RBC 2-5 /hpf (0-5) 07/05/17 18:30 Urine WBC >100 /hpf (0-5) H 07/05/17 18:30 Ur Epithelial Cells FEW /lpf (FEW) 07/05/17 18:30 Urine Bacteria FEW /hpf (NONE SEEN) 07/05/17 18:30 Urine Yeast FEW /hpf (NONE SEEN) H 07/05/17 18:30 Stool Occult Blood POSITIVE (NEGATIVE) H 07/13/17 19:00 Vancomycin Trough 29.3 ug/mL (5-10) H 07/20/17 06:00 - Physical Exam Vitals and I&O: Vital Signs Temp 97.6 F 07/20/17 04:00 Pulse 79 07/20/17 07:46 Resp 24 07/20/17 07:46 BP 167/68 07/20/17 08:10 Pulse Ox 100 07/20/17 08:00 Intake & Output 07/19/17 07/20/17 07/20/17 18:59 06:59 18:59 Intake Total 2400 1982.5 Output Total 1750 1300 Balance 650 682.5 Weight (lbs) 72.66 kg 72.802 kg Intake: Intake, IV Amount 1450 1232.5 D5-0.45NS 1,000 ml @ 75 1000 1132.5 mls/hr IV .[id number] [facility] Rx #:[id number] Piperacillin Sodium/ 200 100 Tazobact 2.25 gm In Sodium Chloride 0.9% 100 ml @ 100 mls/hr IV Q6HR [facility] Rx#:[id number] Vancomycin HCl 1.25 gm In 250 Sodium Chloride 0.9% 250 ml @ 165 mls/hr IV Q24H [facility] Rx#:[id number] Tube Feeding 600 600 Other 350 150 Output: Urine 1750 1300 Other: # Bowel Movements 1 0 Stool Characteristics Soft Brown Weight Source Bedscale Bedscale Active Medications: Current Medications Acetaminophen (Tylenol) 650 mg PO Q4H PRN PRN Reason: Fever > 101 Stop: 08/30/17 22:06 Last Admin: 07/18/17 11:40 Dose: 650 mg Albuterol/Ipratropium (Duoneb Neb) 3 ml HHN Q4HRT PRN PRN Reason: Wheezing Stop: 08/30/17 22:13 Albuterol/Ipratropium (Duoneb Neb) 3 ml HHN Q6HRT [facility] Stop: 08/31/17 00:59 Last Admin: 07/20/17 07:27 Dose: 3 ml Ascorbic Acid (Vitamin C) 500 mg PO DAILY [facility] Stop: 08/31/17 08:59 Last Admin: 07/20/17 08:11 Dose: 500 mg Baclofen (Lioresal) 5 mg PO TID [facility] Stop: 09/06/17 08:59 Last Admin: 07/20/17 08:08 Dose: 5 mg Bisacodyl (Dulcolax 10 Mg Supp) 10 mg RC HS PRN PRN Reason: BOWEL CARE MANAGEMENT Stop: 08/30/17 22:18 Budesonide (Pulmicort) 0.5 mg HHN BIDRT [facility] Stop: 08/31/17 18:59 Last Admin: 07/20/17 07:27 Dose: 0.5 mg Cyproheptadine HCl (Periactin) 4 mg PO BID [facility] Stop: 08/31/17 08:59 Last Admin: 07/20/17 08:11 Dose: 4 mg Docusate Sodium (Colace) 100 mg PO BID [facility] Stop: 08/31/17 08:59 Last Admin: 07/20/17 08:11 Dose: 100 mg Ferrous Sulfate (Iron) 325 mg PO BID [facility] Stop: 08/31/17 08:59 Last Admin: 07/20/17 08:10 Dose: 325 mg Folic Acid (Folate) 1 mg PO DAILY [facility] Stop: 08/31/17 08:59 Last Admin: 07/20/17 08:11 Dose: 1 mg Furosemide (Lasix) 20 mg IVP DAILY [facility] Stop: 09/16/17 11:59 Last Admin: 07/20/17 08:10 Dose: 20 mg Dextrose/Sodium Chloride (D5-0.45ns) 1,000 mls @ 75 mls/hr IV .[id number] [facility] Stop: 09/01/17 11:59 Last Infusion: 07/20/17 06:00 Dose: 75 mls/hr Norepinephrine Bitartrate 4 mg (/ Sodium Chloride) 254 mls @ 0 mls/hr IV TITR [facility]; Titrate PRN Reason: Protocol Stop: 09/03/17 16:29 Piperacillin Sod/Tazobactam (Sod 2.25 gm/ Sodium Chloride) 100 mls @ 100 mls/ hr IV Q6HR [facility] Stop: 09/14/17 18:44 Last Admin: 07/20/17 05:54 Dose: 100 mls/hr Vancomycin HCl 1.25 gm/ Sodium (Chloride) 250 mls @ 165 mls/hr IV Q36H [facility] Stop: 09/18/17 20:59 Lactobacillus Rhamnosus (Culturelle 15b) 1 each PO DAILY [facility] Stop: 09/01/17 08:59 Last Admin: 07/20/17 08:11 Dose: 1 each Lactulose (Cephulac) 20 gm PO QID PRN PRN Reason: Constipation Stop: 08/30/17 22:18 Last Admin: 07/17/17 17:50 Dose: 20 gm Lorazepam (Ativan) 1 mg IVP Q4HR PRN; Protocol PRN Reason: Anxiety Stop: 09/04/17 08:31 Last Admin: 07/18/17 21:49 Dose: 1 mg Methylprednisolone Sodium Succinate (Solu-Medrol) 40 mg IVP Q8HR [facility] Stop: 09/09/17 20:59 Last Admin: 07/20/17 05:15 Dose: 40 mg Miscellaneous (Probiotic Screen) 1 ea PRN PRN PRN Reason: PROTOCOL Stop: 09/01/17 08:44 Miscellaneous (Vancomycin Iv Per Pharmacy) 1 [facility] PRN PRN PRN Reason: PROTOCOL Stop: 09/14/17 17:27 Multivitamins/Vitamin C (Theragran) 1 tab PO DAILY [facility] Stop: 08/31/17 08:59 Last Admin: 07/20/17 08:11 Dose: 1 tab Nicotine (Nicotine Transdermal System) 14 mg TD DAILY [facility] Stop: 09/04/17 08:59 Last Admin: 07/20/17 08:11 Dose: 14 mg Pantoprazole Sodium (Protonix) 40 mg IVP BID [facility] Stop: 09/13/17 08:59 Last Admin: 07/20/17 08:10 Dose: 40 mg General: no acute distress, cachectic HEENT: atraumatic, normocephalic, PERRLA Neck: supple, no thyromegaly Cardiovascular: S1S2, regular Lungs: clear to percussion, crackles, rhonchi Abdomen: soft, no tender, no distended, no mass Extremities: no cyanosis, no clubbing, no edema Neurological: awake, alert Skin: intact - Procedures Procedures: Procedures Procedure Code Date INSERT EMERGENCY AIRWAY 03034 07/01/17 INSERTION OF ENDOTRACHEAL AIRWAY INTO TRACHEA, VIA OPENING [id number] 07/01/17 RESPIRATORY VENTILATION, GREATER THAN 96 CONSECUTIVE HOURS [id number] 07/01/17 VENT MGMT INPAT INIT DAY [id number] 07/01/17 Infectious Disease Assmt/Plan - Problem List Patient Problems: All Active Problems WEAKESS AND POOR ORAL INTAKE (Acute) - Assessment Assessment: 1. Leukocytosis. Fever, sepsis. Improving. 2. Pneumonia. 3. Stage IV lung CA. 4. Protein calorie malnutrion, 5. VDRF. 6. ALTERED MENTAL STATUS. - Plan Plan: Continue zosyn and vacno. Poor prognosis. Nutritional Asmnt/Malnutr-PDOC - Dietary Evaluation Malnutrition Findings (Please click <Entered> for more info): Nutritional Asmnt/Malnutrition Start: 07/03/17 13: 22 Text: Status: Complete Freq: Document 07/03/17 13:22 URBAN (Rec: 07/03/17 13:35 URBAN [email or web address]- [email or web address]) Nutritional Asmnt/Malnutrition Patient General Information Nutritional Screening Consult Diagnosis UTI, Failure to thrive, hypokalemia Pertinent Medical Hx/Surgical Hx CAD, HTN, COPD, Stage 4 lung cancer, peripheral neuropathy, constipation, GERD, anxiety, low back pain Subjective Information Consult received for Failure to Thrive. Current Diet Order/ Nutrition Support Regular diet, pureed with mechaical soft Patient / S.O Not Indicated Pertinent Medications Vitamin C, dulcolax, D5-0.45 NS @ 75 ml/hr, colace, iron, folate, lactulose, theragran Pertinent Labs (07/02) P 1.5, Mg 1.7, albumin 2.9 Nutritional Hx/Data Height 1.6 m Height (Calculated Centimeters) 160.0 Current Weight (lbs) 54.885 kg Weight (Calculated Kilograms) 54.9 Weight (Calculated Grams) 96732.7 [place] Body Weight 115 % [place] Body Weight 105 Body Mass Index (BMI) 21.4 Recent Weight Change No Weight Status Approriate GI Symptoms GI Symptoms None Last BM Prior to admission Difficult in: None Food Allergies No Cultural/Ethnic/Jainism Belief None indicated Skin Integrity/Comment: Pradeep Cook Current %PO Poor (25-49%) Estimated Nutritional Goals BEE in Kcals: Using Current wt Calories/Kcals/Kg 55kg CBW (25-30kcal/kg) Kcals Calculated 8888-1044 kcal/day Protein: Using Current wt Protein g/k-1.2 gm/kg Protein Calculated 55-65 gm/day Fluid: ml 2303-8385 ml/day (1 ml/kcal) Nutritional Problem 2. Problem Problem Inadequate oral intake related to Etiology poor appetite aeb Signs/Symptoms: meeting <75% of estimated nutrient needs 1. Problem Problem Altered nutrition related lab values related to Etiology electrolyte imbalance aeb Signs/Symptoms: P 1.5, Mg 1.7 Intervention/Recommendation Comments 1. Continue pureed diet as tolerated by patient. 2. RN To assist with feedings and encourage oral intake. 3. Consider adding Boost plus between meals to optimize calorie and protein intake. Expected Outcomes/Goals Expected Outcomes/Goals Oral intake to meet >75% of needs, weight stable, nutrition labs WNL F/U MR 07/06-
--- NOTE | 2017-07-20 09:55 | General Progress Note ---
Subjective - Review of Systems Service Date: 07/20/17 Subjective: unresponsive, opens eyes off vent. EXTubated Objective - Results Result Diagrams: 07/20/17 06:00 07/20/17 06:00 Recent Labs: Laboratory Last Values WBC 18.0 Th/cmm (4.8-10.8) H 07/20/17 06:00 RBC 2.88 Mil/cmm (3.80-5.20) L 07/20/17 06:00 Hgb 8.9 gm/dL (12-16) L 07/20/17 06:00 Hct 26.2 % (41.0-60) L 07/20/17 06:00 MCV 91.0 fl (81-100) 07/20/17 06:00 MCH 30.9 pg (27.0-31.0) 07/20/17 06:00 MCHC Differential 33.9 pg (28.0-36.0) 07/20/17 06:00 RDW 16.5 % (11.5-20.0) 07/20/17 06:00 Plt Count 410 Th/cmm (150-400) H 07/20/17 06:00 MPV 6.9 fl 07/20/17 06:00 Neutrophils % 92.8 % (40.0-80.0) H 07/20/17 06:00 Band Neutrophils % 2 % (0-10) 07/17/17 04:33 Lymphocytes % 2.5 % (20.0-50.0) L 07/20/17 06:00 Monocytes % 4.2 % (2.0-10.0) 07/20/17 06:00 Eosinophils % 0.3 % (0.0-5.0) 07/20/17 06:00 Basophils % 0.2 % (0.0-2.0) 07/20/17 06:00 Neutrophils (Manual) 95 % (40-80) H 07/17/17 04:33 Lymphocytes 2 % (20-50) L 07/17/17 04:33 Monocytes 1 % (2-10) L 07/17/17 04:33 Eosinophils 0 % (0-5) 07/16/17 04:35 Basophils 0 % (0-3) 07/16/17 04:35 Hypochromia 1+ 07/14/17 05:00 Platelet Estimate INCREASED PLATELETS (NORMAL) 07/17/17 04:33 Platelet Morphology NORMAL (NORMAL) 07/16/17 04:35 Polychromasia 1+ 07/14/17 05:00 RBC Morph Micro Appear NORMAL (NORMAL) 07/16/17 04:35 Specimen Source Arterial 07/19/17 19:14 Sample Site RIGHT BRACHIAL 07/19/17 19:14 pH 7.44 (7.35-7.45) 07/19/17 19:14 pCO2 39.0 mmHg (35.0-45.0) 07/19/17 19:14 pO2 179.0 mmHg (80.0-100.0) H 07/19/17 19:14 HCO3 26.7 mEq/L (20.0-26.0) H 07/19/17 19:14 Base Excess 2.2 mEq/L (-3.0-3.0) 07/19/17 19:14 O2 Saturation 100.0 % (92.0-100.0) 07/19/17 19:14 Darius Test Positive 07/19/17 19:14 Vent Rate NA 07/18/17 10:48 Inspired O2 40 07/19/17 19:14 Tidal Volume NA 07/18/17 10:48 PEEP NA 07/18/17 10:48 Pressure (ins/psv/peep) NA 07/18/17 10:48 Critical Value SC 07/19/17 19:14 Sodium 137 mEq/L (136-145) 07/20/17 06:00 Potassium 3.9 mEq/L (3.5-5.1) 07/20/17 06:00 Chloride 102 mEq/L (98-107) 07/20/17 06:00 Carbon Dioxide 21.6 mEq/L (21.0-31.0) 07/20/17 06:00 Anion Gap 17.3 (7.0-16.0) H 07/20/17 06:00 BUN 43 mg/dL (7-25) H 07/20/17 06:00 Creatinine 1.3 mg/dL (0.6-1.2) H 07/20/17 06:00 Est GFR ( Amer) TNP 07/20/17 06:00 Est GFR (Non-Af Amer) TNP 07/20/17 06:00 BUN/Creatinine Ratio 33.1 07/20/17 06:00 Glucose 138 mg/dL (70-105) H 07/20/17 06:00 POC Glucose 177 MG/DL (70 - 105) H 07/14/17 11:26 Hemoglobin A1c % 5.2 % (4.0-6.0) 07/17/17 04:33 Whole Bld Lactic Acid 3.99 mmol/L (0.60-1.99) H* 07/05/17 13:00 Calcium 7.5 mg/dL (8.6-10.3) L 07/20/17 06:00 Phosphorus 1.5 mg/dL (2.5-5.0) L 07/02/17 05:20 Magnesium 1.7 mg/dL (1.9-2.7) L 07/02/17 05:20 Iron 21 07/03/17 05:48 TIBC 131 07/03/17 05:48 Iron Saturation 16 07/03/17 05:48 Unsaturated IBC 110 07/03/17 05:48 Ferritin 334 ng/mL (15-150) H 07/03/17 05:48 Total Bilirubin 0.5 mg/dL (0.3-1.0) 07/05/17 06:05 AST 16 U/L (13-39) 07/05/17 06:05 ALT 8 U/L (7-52) 07/05/17 06:05 Alkaline Phosphatase 66 U/L (34-104) 07/05/17 06:05 Troponin I 0.09 ng/mL (0.01-0.05) H* D 07/04/17 05:50 B-Natriuretic Peptide 215.0 pg/mL (5.0-100.0) H 07/01/17 14:10 Total Protein 5.6 gm/dL (6.0-8.3) L 07/05/17 06:05 Albumin 2.6 gm/dL (3.7-5.3) L 07/05/17 06:05 Globulin 3.0 gm/dL 07/05/17 06:05 Albumin/Globulin Ratio 0.9 (1.0-1.8) L 07/05/17 06:05 Triglycerides 107 mg/dL (<150) 07/04/17 05:50 Cholesterol 114 mg/dL (<200) 07/04/17 05:50 LDL Cholesterol Direct 59 mg/dL (75-193) L 07/04/17 05:50 HDL Cholesterol 31 mg/dL (23-92) 07/04/17 05:50 TSH 1.46 uIU/ml (0.34-5.60) 07/04/17 05:50 Urine Source CATH 07/05/17 18:30 Urine Color YELLOW 07/05/17 18:30 Urine Clarity CLOUDY (CLEAR) H 07/05/17 18:30 Urine pH 5.5 (4.6 - 8.0) 07/05/17 18:30 Ur Specific [place] 1.025 (1.005-1.030) 07/05/17 18:30 Urine Protein 30 mg/dL (NEGATIVE) H 07/05/17 18:30 Urine Glucose (UA) NEGATIVE mg/dL (NEGATIVE) 07/05/17 18:30 Urine Ketones TRACE mg/dL (NEGATIVE) 07/05/17 18:30 Urine Blood SMALL (NEGATIVE) H 07/05/17 18:30 Urine Nitrate NEGATIVE (NEGATIVE) 07/05/17 18:30 Urine Bilirubin NEGATIVE (NEGATIVE) 07/05/17 18:30 Urine Urobilinogen 0.2 E.U./dL (0.2 - 1.0) 07/05/17 18:30 Ur Leukocyte Esterase LARGE (NEGATIVE) H 07/05/17 18:30 Urine RBC 2-5 /hpf (0-5) 07/05/17 18:30 Urine WBC >100 /hpf (0-5) H 07/05/17 18:30 Ur Epithelial Cells FEW /lpf (FEW) 07/05/17 18:30 Urine Bacteria FEW /hpf (NONE SEEN) 07/05/17 18:30 Urine Yeast FEW /hpf (NONE SEEN) H 07/05/17 18:30 Stool Occult Blood POSITIVE (NEGATIVE) H 07/13/17 19:00 Vancomycin Trough 29.3 ug/mL (5-10) H 07/20/17 06:00 - Physical Exam Vitals and I&O: Vital Signs Temp 97.8 F 07/20/17 08:00 Pulse 82 07/20/17 08:00 Resp 18 07/20/17 08:00 BP 167/68 07/20/17 08:10 Pulse Ox 100 07/20/17 08:00 Intake & Output 07/19/17 07/20/17 07/20/17 18:59 06:59 18:59 Intake Total 2400 1982.5 Output Total 1750 1300 Balance 650 682.5 Weight (lbs) 72.66 kg 72.802 kg Intake: Intake, IV Amount 1450 1232.5 D5-0.45NS 1,000 ml @ 75 1000 1132.5 mls/hr IV .[id number] [facility] Rx #:[id number] Piperacillin Sodium/ 200 100 Tazobact 2.25 gm In Sodium Chloride 0.9% 100 ml @ 100 mls/hr IV Q6HR [facility] Rx#:[id number] Vancomycin HCl 1.25 gm In 250 Sodium Chloride 0.9% 250 ml @ 165 mls/hr IV Q24H [facility] Rx#:[id number] Tube Feeding 600 600 Other 350 150 Output: Urine 1750 1300 Other: # Bowel Movements 1 0 Stool Characteristics Soft Brown Weight Source Bedscale Bedscale Active Medications: Current Medications Acetaminophen (Tylenol) 650 mg PO Q4H PRN PRN Reason: Fever > 101 Stop: 08/30/17 22:06 Last Admin: 07/18/17 11:40 Dose: 650 mg Albuterol/Ipratropium (Duoneb Neb) 3 ml HHN Q4HRT PRN PRN Reason: Wheezing Stop: 08/30/17 22:13 Albuterol/Ipratropium (Duoneb Neb) 3 ml HHN Q6HRT [facility] Stop: 08/31/17 00:59 Last Admin: 07/20/17 07:27 Dose: 3 ml Ascorbic Acid (Vitamin C) 500 mg PO DAILY [facility] Stop: 08/31/17 08:59 Last Admin: 07/20/17 08:11 Dose: 500 mg Baclofen (Lioresal) 5 mg PO TID [facility] Stop: 09/06/17 08:59 Last Admin: 07/20/17 08:08 Dose: 5 mg Bisacodyl (Dulcolax 10 Mg Supp) 10 mg RC HS PRN PRN Reason: BOWEL CARE MANAGEMENT Stop: 08/30/17 22:18 Budesonide (Pulmicort) 0.5 mg HHN BIDRT [facility] Stop: 08/31/17 18:59 Last Admin: 07/20/17 07:27 Dose: 0.5 mg Cyproheptadine HCl (Periactin) 4 mg PO BID [facility] Stop: 08/31/17 08:59 Last Admin: 07/20/17 08:11 Dose: 4 mg Docusate Sodium (Colace) 100 mg PO BID [facility] Stop: 08/31/17 08:59 Last Admin: 07/20/17 08:11 Dose: 100 mg Ferrous Sulfate (Iron) 325 mg PO BID [facility] Stop: 08/31/17 08:59 Last Admin: 07/20/17 08:10 Dose: 325 mg Folic Acid (Folate) 1 mg PO DAILY [facility] Stop: 08/31/17 08:59 Last Admin: 07/20/17 08:11 Dose: 1 mg Furosemide (Lasix) 20 mg IVP DAILY [facility] Stop: 09/16/17 11:59 Last Admin: 07/20/17 08:10 Dose: 20 mg Dextrose/Sodium Chloride (D5-0.45ns) 1,000 mls @ 75 mls/hr IV .[id number] [facility] Stop: 09/01/17 11:59 Last Infusion: 07/20/17 06:00 Dose: 75 mls/hr Norepinephrine Bitartrate 4 mg (/ Sodium Chloride) 254 mls @ 0 mls/hr IV TITR [facility]; Titrate PRN Reason: Protocol Stop: 09/03/17 16:29 Piperacillin Sod/Tazobactam (Sod 2.25 gm/ Sodium Chloride) 100 mls @ 100 mls/ hr IV Q6HR [facility] Stop: 09/14/17 18:44 Last Admin: 07/20/17 05:54 Dose: 100 mls/hr Vancomycin HCl 1.25 gm/ Sodium (Chloride) 250 mls @ 165 mls/hr IV Q36H [facility] Stop: 09/18/17 20:59 Lactobacillus Rhamnosus (Culturelle 15b) 1 each PO DAILY [facility] Stop: 09/01/17 08:59 Last Admin: 07/20/17 08:11 Dose: 1 each Lactulose (Cephulac) 20 gm PO QID PRN PRN Reason: Constipation Stop: 08/30/17 22:18 Last Admin: 07/17/17 17:50 Dose: 20 gm Lorazepam (Ativan) 1 mg IVP Q4HR PRN; Protocol PRN Reason: Anxiety Stop: 09/04/17 08:31 Last Admin: 07/18/17 21:49 Dose: 1 mg Methylprednisolone Sodium Succinate (Solu-Medrol) 40 mg IVP Q8HR [facility] Stop: 09/09/17 20:59 Last Admin: 07/20/17 05:15 Dose: 40 mg Miscellaneous (Probiotic Screen) 1 ea PRN PRN PRN Reason: PROTOCOL Stop: 09/01/17 08:44 Miscellaneous (Vancomycin Iv Per Pharmacy) 1 [facility] PRN PRN PRN Reason: PROTOCOL Stop: 09/14/17 17:27 Multivitamins/Vitamin C (Theragran) 1 tab PO DAILY [facility] Stop: 08/31/17 08:59 Last Admin: 07/20/17 08:11 Dose: 1 tab Nicotine (Nicotine Transdermal System) 14 mg TD DAILY [facility] Stop: 09/04/17 08:59 Last Admin: 07/20/17 08:11 Dose: 14 mg Pantoprazole Sodium (Protonix) 40 mg IVP BID [facility] Stop: 09/13/17 08:59 Last Admin: 07/20/17 08:10 Dose: 40 mg General: Alert, Other (awake now. NAD) HEENT: Atraumatic, Other (et in place) Neck: Supple, no JVD, no Thyromegaly Cardiovascular: Regular rate, Other (in A fib) Lungs: Other (Intubated, has bl rales) Abdomen: Bowel sounds, Soft, no Tender, no Hepatomegaly Extremities: Edema, no Clubbing Neurological: Other (Pt unable to participate in test) Skin: Other (+2 pitting edema), no Rash Psych/Mental Status: Other (no psychosis) - Procedures Procedures: Procedures Procedure Code Date INSERT EMERGENCY AIRWAY 66410 07/01/17 INSERTION OF ENDOTRACHEAL AIRWAY INTO [place]ACHEA, VIA OPENING [id number] 07/01/17 RESPIRATORY VENTILATION, GREATER THAN 96 CONSECUTIVE HOURS [id number] 07/01/17 [place] [address] 07/01/17 Assessment/Plan - Problem List Patient Problems: All Active Problems WEAKESS AND POOR ORAL INTAKE (Acute) - Assessment Assessment: * Advanced metastatic cancer * poor functional status * Anemia likely of chronic disease * Respiratory failure s/p intubation 07/05 off cpap, 07/19 back on vent. 07/20 extubated iron studies cw anemia of chronic disease. hgb better today without transfusion monitor hgb and transfuse for < 7.5 very Poor prognosis Nutritional Asmnt/Malnutr-PDOC - Dietary Evaluation Malnutrition Findings (Please click <Entered> for more info): Nutritional Asmnt/Malnutrition Start: 07/03/17 13: 22 Text: Status: Complete Freq: Document 07/03/17 13:22 ADALIJas (Rec: 07/03/17 13:35 URBAN [id number]) Nutritional Asmnt/Malnutrition Patient General Information Nutritional Screening Consult Diagnosis UTI, Failure to thrive, hypokalemia Pertinent Medical Hx/Surgical Hx CAD, HTN, COPD, Stage 4 lung cancer, peripheral neuropathy, constipation, GERD, anxiety, low back pain Subjective Information Consult received for Failure to Thrive. Current Diet Order/ Nutrition Support Regular diet, pureed with mechaical soft Patient / S.O Not Indicated Pertinent Medications Vitamin C, dulcolax, D5-0.45 NS @ 75 ml/hr, colace, iron, folate, lactulose, theragran Pertinent Labs (07/02) P 1.5, Mg 1.7, albumin 2.9 Nutritional Hx/Data Height 1.6 m Height (Calculated Centimeters) 160.0 Current Weight (lbs) 54.885 kg Weight (Calculated Kilograms) 54.9 Weight (Calculated Grams) 06705.7 [place] Body Weight 115 % [place] Body Weight 105 Body Mass Index (BMI) 21.4 Recent Weight Change No Weight Status Approriate GI Symptoms GI Symptoms None Last BM Prior to admission Difficult in: None Food Allergies No Cultural/Ethnic/Faith Belief None indicated Skin Integrity/Comment: Pradeep 15 Current %PO Poor (25-49%) Estimated Nutritional Goals BEE in Kcals: Using Current wt Calories/Kcals/Kg 55kg CBW (25-30kcal/kg) Kcals Calculated 3153-8504 kcal/day Protein: Using Current wt Protein g/k-1.2 gm/kg Protein Calculated 55-65 gm/day Fluid: ml 9535-9387 ml/day (1 ml/kcal) Nutritional Problem 2. Problem Problem Inadequate oral intake related to Etiology poor appetite aeb Signs/Symptoms: meeting <75% of estimated nutrient needs 1. Problem Problem Altered nutrition related lab values related to Etiology electrolyte imbalance aeb Signs/Symptoms: P 1.5, Mg 1.7 Intervention/Recommendation Comments 1. Continue pureed diet as tolerated by patient. 2. RN To assist with feedings and encourage oral intake. 3. Consider adding Boost plus between meals to optimize calorie and protein intake. Expected Outcomes/Goals Expected Outcomes/Goals Oral intake to meet >75% of needs, weight stable, nutrition labs WNL F/U MR 07/06-
[2017-07-21] MEDS: Albuterol/Ipratropium Neb 3 ML AERS HHN SCH ×4 (00:13→18:35)
[2017-07-21 04:36] LABS: HEMATOCRIT 23.6 % (41.0-60); MANUAL DIFF REQUIRED? YES; MEAN CELL VOLUME 89.1 fl (81-100); MEAN CORPUSCULAR HEMOGLOBIN 29.5 pg (27.0-31.0); MEAN CORPUSCULAR HGB CONC 33.1 pg (28.0-36.0); MEAN PLATELET VOLUME 6.6 fl; PLATELET COUNT 369 Th/cmm (150-400); RED BLOOD COUNT 2.64 Mil/cmm (3.80-5.20)
[2017-07-21 04:45] LABS: HEMOGLOBIN 7.8 gm/dL (12-16); WHITE BLOOD COUNT 16.3 Th/cmm (4.8-10.8)
[2017-07-21 04:54] LABS: ANION GAP 11.8 (7.0-16.0); BUN - UREA NITROGEN 42 mg/dL (7-25); CALCIUM SERUM 7.3 mg/dL (8.6-10.3); CARBON DIOXIDE 24.8 mEq/L (21.0-31.0); CHLORIDE 105 mEq/L (98-107); CREATININE - SERUM 1.2 mg/dL (0.6-1.2); GLUCOSE 197 mg/dL (70-105); POTASSIUM SERUM 3.6 mEq/L (3.5-5.1); SODIUM SERUM 138 mEq/L (136-145)
[2017-07-21] MEDS: Piperacillin Sodium/Tazobact 2.25 GM in Sodium Chloride 0.9% 100 ML IV SCH ×3 (05:09→18:14)
[2017-07-21] MEDS: methylPREDNISolone SS 40 mg Vial IVP SCH ×3 (05:09→20:28)
[2017-07-21 05:14] LABS: BAND NEUTROPHILE 2 % (0-10); HYPOCHROMIA 1+; LYMPHOCYTE 4 % (20-50); NEUTROPHILS 94 % (40-80); OVALOCYTES 1+; PLATELET ESTIMATE ADEQUATE (NORMAL); TOTAL CELLS COUNTED 100
[2017-07-21] MEDS: Budesonide 0.5 Mg/2 mL Ud HHN SCH ×2 (07:01→18:35)
[2017-07-21] MEDS: Nicotine 14 mg/24 hr Tdm TD SCH (08:38)
[2017-07-21] MEDS: Cyproheptadine 4 mg Tab PO SCH ×2 (08:38→18:14)
[2017-07-21] MEDS: Ferrous Sulfate 325 MG TAB PO SCH ×2 (08:40→18:11)
[2017-07-21] MEDS: Multivitamin Tab PO SCH (08:41)
[2017-07-21] MEDS: Lactobacillus Rhamnosus GG 15 Billion CFU CAP.SPRINK PO SCH (08:41)
--- NOTE | 2017-07-21 09:13 | General Progress Note ---
Subjective - Review of Systems Service Date: 07/21/17 Subjective: Pt seen and eval. In bed. Seen by jayson, pulrenaldo, and heme onc, all of whom agree with hospice care. Dr. Montanez discussed poor prog with son. No fevers or chills. WBC elevated, but improving. No falls. Pt went into A fib pm 07/04/16, and was transferred to ICU on digoxin. Intubated on 07/05/17. Was on Amiodarone and Levophed drip, both of which are off as of 07/06/17. She had large bm night of 07/10/17. Pt was extubated night of 07/19/17. On nasal cannula O2 at 2 L now. Awake, but very weak. Son does not want GT. Objective - Results Result Diagrams: 07/21/17 04:30 07/21/17 04:30 Recent Labs: Laboratory Last Values WBC 16.3 Th/cmm (4.8-10.8) H 07/21/17 04:30 RBC 2.64 Mil/cmm (3.80-5.20) L 07/21/17 04:30 Hgb 7.8 gm/dL (12-16) L* 07/21/17 04:30 Hct 23.6 % (41.0-60) L 07/21/17 04:30 MCV 89.1 fl (81-100) 07/21/17 04:30 MCH 29.5 pg (27.0-31.0) 07/21/17 04:30 MCHC Differential 33.1 pg (28.0-36.0) 07/21/17 04:30 RDW 16.0 % (11.5-20.0) 07/21/17 04:30 Plt Count 369 Th/cmm (150-400) 07/21/17 04:30 MPV 6.6 fl 07/21/17 04:30 Neutrophils % 92.8 % (40.0-80.0) H 07/20/17 06:00 Band Neutrophils % 2 % (0-10) 07/21/17 04:30 Lymphocytes % 2.5 % (20.0-50.0) L 07/20/17 06:00 Monocytes % 4.2 % (2.0-10.0) 07/20/17 06:00 Eosinophils % 0.3 % (0.0-5.0) 07/20/17 06:00 Basophils % 0.2 % (0.0-2.0) 07/20/17 06:00 Neutrophils (Manual) 94 % (40-80) H 07/21/17 04:30 Lymphocytes 4 % (20-50) L 07/21/17 04:30 Monocytes 1 % (2-10) L 07/17/17 04:33 Eosinophils 0 % (0-5) 07/16/17 04:35 Basophils 0 % (0-3) 07/16/17 04:35 Hypochromia 1+ 07/21/17 04:30 Platelet Estimate ADEQUATE (NORMAL) 07/21/17 04:30 Platelet Morphology NORMAL (NORMAL) 07/16/17 04:35 Polychromasia 1+ 07/14/17 05:00 Ovalocytes 1+ 07/21/17 04:30 RBC Morph Micro Appear NORMAL (NORMAL) 07/16/17 04:35 Specimen Source Arterial 07/19/17 19:14 Sample Site RIGHT BRACHIAL 07/19/17 19:14 pH 7.44 (7.35-7.45) 07/19/17 19:14 pCO2 39.0 mmHg (35.0-45.0) 07/19/17 19:14 pO2 179.0 mmHg (80.0-100.0) H 07/19/17 19:14 HCO3 26.7 mEq/L (20.0-26.0) H 07/19/17 19:14 Base Excess 2.2 mEq/L (-3.0-3.0) 07/19/17 19:14 O2 Saturation 100.0 % (92.0-100.0) 07/19/17 19:14 Darius Test Positive 07/19/17 19:14 Vent Rate NA 07/18/17 10:48 Inspired O2 40 07/19/17 19:14 Tidal Volume NA 07/18/17 10:48 PEEP NA 07/18/17 10:48 Pressure (ins/psv/peep) NA 07/18/17 10:48 Critical Value SC 07/19/17 19:14 Sodium 138 mEq/L (136-145) 07/21/17 04:30 Potassium 3.6 mEq/L (3.5-5.1) 07/21/17 04:30 Chloride 105 mEq/L (98-107) 07/21/17 04:30 Carbon Dioxide 24.8 mEq/L (21.0-31.0) 07/21/17 04:30 Anion Gap 11.8 (7.0-16.0) 07/21/17 04:30 BUN 42 mg/dL (7-25) H 07/21/17 04:30 Creatinine 1.2 mg/dL (0.6-1.2) 07/21/17 04:30 Est GFR ( Amer) TNP 07/21/17 04:30 Est GFR (Non-Af Amer) TNP 07/21/17 04:30 BUN/Creatinine Ratio 35.0 07/21/17 04:30 Glucose 197 mg/dL (70-105) H 07/21/17 04:30 POC Glucose 177 MG/DL (70 - 105) H 07/14/17 11:26 Hemoglobin A1c % 5.2 % (4.0-6.0) 07/17/17 04:33 Whole Bld Lactic Acid 3.99 mmol/L (0.60-1.99) H* 07/05/17 13:00 Calcium 7.3 mg/dL (8.6-10.3) L 07/21/17 04:30 Phosphorus 1.5 mg/dL (2.5-5.0) L 07/02/17 05:20 Magnesium 1.7 mg/dL (1.9-2.7) L 07/02/17 05:20 Iron 21 07/03/17 05:48 TIBC 131 07/03/17 05:48 Iron Saturation 16 07/03/17 05:48 Unsaturated IBC 110 07/03/17 05:48 Ferritin 334 ng/mL (15-150) H 07/03/17 05:48 Total Bilirubin 0.5 mg/dL (0.3-1.0) 07/05/17 06:05 AST 16 U/L (13-39) 07/05/17 06:05 ALT 8 U/L (7-52) 07/05/17 06:05 Alkaline Phosphatase 66 U/L (34-104) 07/05/17 06:05 Troponin I 0.09 ng/mL (0.01-0.05) H* D 07/04/17 05:50 B-Natriuretic Peptide 215.0 pg/mL (5.0-100.0) H 07/01/17 14:10 Total Protein 5.6 gm/dL (6.0-8.3) L 07/05/17 06:05 Albumin 2.6 gm/dL (3.7-5.3) L 07/05/17 06:05 Globulin 3.0 gm/dL 07/05/17 06:05 Albumin/Globulin Ratio 0.9 (1.0-1.8) L 07/05/17 06:05 Triglycerides 107 mg/dL (<150) 07/04/17 05:50 Cholesterol 114 mg/dL (<200) 07/04/17 05:50 LDL Cholesterol Direct 59 mg/dL (75-193) L 07/04/17 05:50 HDL Cholesterol 31 mg/dL (23-92) 07/04/17 05:50 TSH 1.46 uIU/ml (0.34-5.60) 07/04/17 05:50 Urine Source CATH 07/05/17 18:30 Urine Color YELLOW 07/05/17 18:30 Urine Clarity CLOUDY (CLEAR) H 07/05/17 18:30 Urine pH 5.5 (4.6 - 8.0) 07/05/17 18:30 Ur Specific [place] 1.025 (1.005-1.030) 07/05/17 18:30 Urine Protein 30 mg/dL (NEGATIVE) H 07/05/17 18:30 Urine Glucose (UA) NEGATIVE mg/dL (NEGATIVE) 07/05/17 18:30 Urine Ketones TRACE mg/dL (NEGATIVE) 07/05/17 18:30 Urine Blood SMALL (NEGATIVE) H 07/05/17 18:30 Urine Nitrate NEGATIVE (NEGATIVE) 07/05/17 18:30 Urine Bilirubin NEGATIVE (NEGATIVE) 07/05/17 18:30 Urine Urobilinogen 0.2 E.U./dL (0.2 - 1.0) 07/05/17 18:30 Ur Leukocyte Esterase LARGE (NEGATIVE) H 07/05/17 18:30 Urine RBC 2-5 /hpf (0-5) 07/05/17 18:30 Urine WBC >100 /hpf (0-5) H 07/05/17 18:30 Ur Epithelial Cells FEW /lpf (FEW) 07/05/17 18:30 Urine Bacteria FEW /hpf (NONE SEEN) 07/05/17 18:30 Urine Yeast FEW /hpf (NONE SEEN) H 07/05/17 18:30 Stool Occult Blood POSITIVE (NEGATIVE) H 07/13/17 19:00 Vancomycin Trough 29.3 ug/mL (5-10) H 07/20/17 06:00 - Physical Exam Vitals and I&O: Vital Signs Temp 98.2 F 07/21/17 06:00 Pulse 90 07/21/17 08:40 Resp 25 07/21/17 07:01 BP 139/61 07/21/17 08:41 Pulse Ox 100 07/21/17 07:01 Intake & Output 07/20/17 07/21/17 07/21/17 18:59 06:59 18:59 Intake Total 1767.5 1350 Output Total 1999 1300 Balance -232.5 50 Weight (lbs) 71.214 kg 71.214 kg Intake: Intake, IV Amount 967.5 550 D5-0.45NS 1,000 ml @ 75 867.5 mls/hr IV .[id number] [facility] Rx #:[id number] Piperacillin Sodium/ 100 300 Tazobact 2.25 gm In Sodium Chloride 0.9% 100 ml @ 100 mls/hr IV Q6HR [facility] Rx#:[id number] Vancomycin HCl 1.25 gm In 250 Sodium Chloride 0.9% 250 ml @ 165 mls/hr IV Q36H [facility] Rx#:[id number] Tube Feeding 600 600 Other 200 200 Output: Urine 2000 1300 Other: # Bowel Movements 0 Weight Source Bedscale Bedscale Active Medications: Current Medications Acetaminophen (Tylenol) 650 mg PO Q4H PRN PRN Reason: Fever > 101 Stop: 08/30/17 22:06 Last Admin: 07/18/17 11:40 Dose: 650 mg Albuterol/Ipratropium (Duoneb Neb) 3 ml HHN Q4HRT PRN PRN Reason: Wheezing Stop: 08/30/17 22:13 Albuterol/Ipratropium (Duoneb Neb) 3 ml HHN Q6HRT [facility] Stop: 08/31/17 00:59 Last Admin: 07/21/17 07:01 Dose: 3 ml Ascorbic Acid (Vitamin C) 500 mg PO DAILY [facility] Stop: 08/31/17 08:59 Last Admin: 07/21/17 08:39 Dose: 500 mg Baclofen (Lioresal) 5 mg PO TID [facility] Stop: 09/06/17 08:59 Last Admin: 07/21/17 08:39 Dose: 5 mg Bisacodyl (Dulcolax 10 Mg Supp) 10 mg RC HS PRN PRN Reason: BOWEL CARE MANAGEMENT Stop: 08/30/17 22:18 Budesonide (Pulmicort) 0.5 mg HHN BIDRT [facility]ADI Stop: 08/31/17 18:59 Last Admin: 07/21/17 07:01 Dose: 0.5 mg Cyproheptadine HCl (Periactin) 4 mg PO BID [facility] Stop: 08/31/17 08:59 Last Admin: 07/21/17 08:38 Dose: 4 mg Docusate Sodium (Colace) 100 mg PO BID SHADI Stop: 08/31/17 08:59 Last Admin: 07/21/17 08:40 Dose: 100 mg Ferrous Sulfate (Iron) 325 mg PO BID [facility] Stop: 08/31/17 08:59 Last Admin: 07/21/17 08:40 Dose: 325 mg Folic Acid (Folate) 1 mg PO DAILY [facility] Stop: 08/31/17 08:59 Last Admin: 07/21/17 08:41 Dose: 1 mg Furosemide (Lasix) 20 mg IVP DAILY [facility] Stop: 09/16/17 11:59 Last Admin: 07/21/17 08:41 Dose: 20 mg Dextrose/Sodium Chloride (D5-0.45ns) 1,000 mls @ 75 mls/hr IV .[id number] [facility] Stop: 09/01/17 11:59 Last Admin: 07/20/17 18:19 Dose: 75 mls/hr Norepinephrine Bitartrate 4 mg (/ Sodium Chloride) 254 mls @ 0 mls/hr IV TITR SHADI; Titrate PRN Reason: Protocol Stop: 09/03/17 16:29 Piperacillin Sod/Tazobactam (Sod 2.25 gm/ Sodium Chloride) 100 mls @ 100 mls/ hr IV Q6HR [facility] Stop: 09/14/17 18:44 Last Infusion: 07/21/17 06:10 Dose: Infused Vancomycin HCl 1.25 gm/ Sodium (Chloride) 250 mls @ 165 mls/hr IV Q36H [facility] Stop: 09/18/17 20:59 Last Infusion: 07/20/17 21:50 Dose: Infused Lactobacillus Rhamnosus (Culturelle 15b) 1 each PO DAILY [facility] Stop: 09/01/17 08:59 Last Admin: 07/21/17 08:41 Dose: 1 each Lactulose (Cephulac) 20 gm PO QID PRN PRN Reason: Constipation Stop: 08/30/17 22:18 Last Admin: 07/17/17 17:50 Dose: 20 gm Lorazepam (Ativan) 1 mg IVP Q4HR PRN; Protocol PRN Reason: Anxiety Stop: 09/04/17 08:31 Last Admin: 07/18/17 21:49 Dose: 1 mg Losartan Potassium (Cozaar) 12.5 mg PO DAILY [facility] Stop: 09/18/17 18:14 Last Admin: 07/21/17 08:40 Dose: 12.5 mg Methylprednisolone Sodium Succinate (Solu-Medrol) 40 mg IVP Q8HR [facility] Stop: 09/09/17 20:59 Last Admin: 07/21/17 05:09 Dose: 40 mg Miscellaneous (Probiotic Screen) 1 ea PRN PRN PRN Reason: PROTOCOL Stop: 09/01/17 08:44 Miscellaneous (Vancomycin Iv Per Pharmacy) 1 ea PRN PRN PRN Reason: PROTOCOL Stop: 09/14/17 17:27 Multivitamins/Vitamin C (Theragran) 1 tab PO DAILY [facility] Stop: 08/31/17 08:59 Last Admin: 07/21/17 08:41 Dose: 1 tab Nicotine (Nicotine Transdermal System) 14 mg TD DAILY [facility] Stop: 09/04/17 08:59 Last Admin: 07/21/17 08:38 Dose: 14 mg Pantoprazole Sodium (Protonix) 40 mg IVP BID [facility] Stop: 09/13/17 08:59 Last Admin: 07/21/17 08:39 Dose: 40 mg General: Alert, Other (awake now. NAD) HEENT: Atraumatic, Other (et in place) Neck: Supple, no JVD, no Thyromegaly Cardiovascular: Regular rate, Other (in A fib) Lungs: Other (Intubated, has bl rales) Abdomen: Bowel sounds, Soft, no Tender, no Hepatomegaly Extremities: Edema, no Clubbing Neurological: Other (Pt unable to participate in test) Skin: Other (+2 pitting edema), no Rash Psych/Mental Status: Other (no psychosis) - Procedures Procedures: Procedures Procedure Code Date INSERT EMERGENCY AIRWAY 24434 07/01/17 INSERTION OF ENDOTRACHEAL AIRWAY INTO TRACHEA, VIA OPENING [id number] 07/01/17 RESPIRATORY VENTILATION, GREATER THAN 96 CONSECUTIVE HOURS [id number] 07/01/17 VENT MGMT INPAT INIT 53443 07/01/17 Assessment/Plan - Problem List Patient Problems: All Active Problems WEAKESS AND POOR ORAL INTAKE (Acute) - Assessment Assessment: Septic shock A fib with RVR Fail to thrive Stage 4 lung ca Sepsis due to E Coli UTI ME Ch pain syn Anemia of ch ill Hypernatremia Hypokalemia Type 2 PA A fib - Plan Plan: Pt holds a poor progonosis. Been trying to communicate poor prognosis to the son. He wants "everything done. " Cardio, Pulm, and Heme Onc seeing pt, all of whom agree with comfort care/ hospice. On IV Zosyn and Vanco. Has been on Amiodarone and Levphed drip in ICU-now off as off 07/06/17. Intubated on 07/05/17; extubated on night of 07/19/17 Elec corrected. I's and O's reviewed. Pt holds a poor prognosis. Son still wants everything done. No drips. Pt responsive. Weaning tried on 07/10/17, but could not tolerate it. But ultimately extubated on 07/19/17. Hgb dropping. Holding Xarelto as of 07/11/17. Checked stool OB times 2-both postive. GI on the case. FU on CBC and Chem 7. Again, advised son of the grave prognosis and the fact that pt has poor quality of life and it will not improve. He still wants "everything done." As of 07/18/17, she was on CPAP, then extubated night on 07/19/17. Consider swallow eval tomorrow when she's more alert. GI following for stool OB times 2. However, pt too unstable for procedure per GI. SNF eval. Son doesn't want GT. Nutritional Asmnt/Malnutr-PDOC - Dietary Evaluation Malnutrition Findings (Please click <Entered> for more info): Nutritional Asmnt/Malnutrition Start: 07/03/17 13: 22 Text: Status: Complete Freq: Document 07/03/17 13:22 URBAN (Rec: 07/03/17 13:35 URBAN [email or web address]- [id number]) Nutritional Asmnt/Malnutrition Patient General Information Nutritional Screening Consult Diagnosis UTI, Failure to thrive, hypokalemia Pertinent Medical Hx/Surgical Hx CAD, HTN, COPD, Stage 4 lung cancer, peripheral neuropathy, constipation, GERD, anxiety, low back pain Subjective Information Consult received for Failure to Thrive. Current Diet Order/ Nutrition Support Regular diet, pureed with mechaical soft Patient / S.O Not Indicated Pertinent Medications Vitamin C, dulcolax, D5-0.45 NS @ 75 ml/hr, colace, iron, folate, lactulose, theragran Pertinent Labs (07/02) P 1.5, Mg 1.7, albumin 2.9 Nutritional Hx/Data Height 1.6 m Height (Calculated Centimeters) 160.0 Current Weight (lbs) 54.885 kg Weight (Calculated Kilograms) 54.9 Weight (Calculated Grams) 33671.7 [place] Body Weight 115 % [place] Body Weight 105 Body Mass Index (BMI) 21.4 Recent Weight Change No Weight Status Approriate GI Symptoms GI Symptoms None Last BM Prior to admission Difficult in: None Food Allergies No Cultural/Ethnic/Anabaptism Belief None indicated Skin Integrity/Comment: Pradeep Cook Current %PO Poor (25-49%) Estimated Nutritional Goals BEE in Kcals: Using Current wt Calories/Kcals/Kg 55kg CBW (25-30kcal/kg) Kcals Calculated 4186-2252 kcal/day Protein: Using Current wt Protein g/k-1.2 gm/kg Protein Calculated 55-65 gm/day Fluid: ml 1741-0214 ml/day (1 ml/kcal) Nutritional Problem 2. Problem Problem Inadequate oral intake related to Etiology poor appetite aeb Signs/Symptoms: meeting <75% of estimated nutrient needs 1. Problem Problem Altered nutrition related lab values related to Etiology electrolyte imbalance aeb Signs/Symptoms: P 1.5, Mg 1.7 Intervention/Recommendation Comments 1. Continue pureed diet as tolerated by patient. 2. RN To assist with feedings and encourage oral intake. 3. Consider adding Boost plus between meals to optimize calorie and protein intake. Expected Outcomes/Goals Expected Outcomes/Goals Oral intake to meet >75% of needs, weight stable, nutrition labs WNL F/U MR 07/06-
--- NOTE | 2017-07-21 09:38 | Infectious Disease Prog Note ---
Infectious Disease Subjective - Review of Systems Service Date: 07/21/17 Subjective: There is no new change. Patient remains intubated orally, on the ventilator support. No fever, worsening of leukocytosis is improving. Infectious Disease Objective - Results Result Diagrams: 07/21/17 04:30 07/21/17 04:30 Recent Labs: Laboratory Last Values WBC 16.3 Th/cmm (4.8-10.8) H 07/21/17 04:30 RBC 2.64 Mil/cmm (3.80-5.20) L 07/21/17 04:30 Hgb 7.8 gm/dL (12-16) L* 07/21/17 04:30 Hct 23.6 % (41.0-60) L 07/21/17 04:30 MCV 89.1 fl (81-100) 07/21/17 04:30 MCH 29.5 pg (27.0-31.0) 07/21/17 04:30 MCHC Differential 33.1 pg (28.0-36.0) 07/21/17 04:30 RDW 16.0 % (11.5-20.0) 07/21/17 04:30 Plt Count 369 Th/cmm (150-400) 07/21/17 04:30 MPV 6.6 fl 07/21/17 04:30 Neutrophils % 92.8 % (40.0-80.0) H 07/20/17 06:00 Band Neutrophils % 2 % (0-10) 07/21/17 04:30 Lymphocytes % 2.5 % (20.0-50.0) L 07/20/17 06:00 Monocytes % 4.2 % (2.0-10.0) 07/20/17 06:00 Eosinophils % 0.3 % (0.0-5.0) 07/20/17 06:00 Basophils % 0.2 % (0.0-2.0) 07/20/17 06:00 Neutrophils (Manual) 94 % (40-80) H 07/21/17 04:30 Lymphocytes 4 % (20-50) L 07/21/17 04:30 Monocytes 1 % (2-10) L 07/17/17 04:33 Eosinophils 0 % (0-5) 07/16/17 04:35 Basophils 0 % (0-3) 07/16/17 04:35 Hypochromia 1+ 07/21/17 04:30 Platelet Estimate ADEQUATE (NORMAL) 07/21/17 04:30 Platelet Morphology NORMAL (NORMAL) 07/16/17 04:35 Polychromasia 1+ 07/14/17 05:00 Ovalocytes 1+ 07/21/17 04:30 RBC Morph Micro Appear NORMAL (NORMAL) 07/16/17 04:35 Specimen Source Arterial 07/19/17 19:14 Sample Site RIGHT BRACHIAL 07/19/17 19:14 pH 7.44 (7.35-7.45) 07/19/17 19:14 pCO2 39.0 mmHg (35.0-45.0) 07/19/17 19:14 pO2 179.0 mmHg (80.0-100.0) H 07/19/17 19:14 HCO3 26.7 mEq/L (20.0-26.0) H 07/19/17 19:14 Base Excess 2.2 mEq/L (-3.0-3.0) 07/19/17 19:14 O2 Saturation 100.0 % (92.0-100.0) 07/19/17 19:14 Darius Test Positive 07/19/17 19:14 Vent Rate NA 07/18/17 10:48 Inspired O2 40 07/19/17 19:14 Tidal Volume NA 07/18/17 10:48 PEEP NA 07/18/17 10:48 Pressure (ins/psv/peep) NA 07/18/17 10:48 Critical Value SC 07/19/17 19:14 Sodium 138 mEq/L (136-145) 07/21/17 04:30 Potassium 3.6 mEq/L (3.5-5.1) 07/21/17 04:30 Chloride 105 mEq/L (98-107) 07/21/17 04:30 Carbon Dioxide 24.8 mEq/L (21.0-31.0) 07/21/17 04:30 Anion Gap 11.8 (7.0-16.0) 07/21/17 04:30 BUN 42 mg/dL (7-25) H 07/21/17 04:30 Creatinine 1.2 mg/dL (0.6-1.2) 07/21/17 04:30 Est GFR ( Amer) TNP 07/21/17 04:30 Est GFR (Non-Af Amer) TNP 07/21/17 04:30 BUN/Creatinine Ratio 35.0 07/21/17 04:30 Glucose 197 mg/dL (70-105) H 07/21/17 04:30 POC Glucose 177 MG/DL (70 - 105) H 07/14/17 11:26 Hemoglobin A1c % 5.2 % (4.0-6.0) 07/17/17 04:33 Whole Bld Lactic Acid 3.99 mmol/L (0.60-1.99) H* 07/05/17 13:00 Calcium 7.3 mg/dL (8.6-10.3) L 07/21/17 04:30 Phosphorus 1.5 mg/dL (2.5-5.0) L 07/02/17 05:20 Magnesium 1.7 mg/dL (1.9-2.7) L 07/02/17 05:20 Iron 21 07/03/17 05:48 TIBC 131 07/03/17 05:48 Iron Saturation 16 07/03/17 05:48 Unsaturated IBC 110 07/03/17 05:48 Ferritin 334 ng/mL (15-150) H 07/03/17 05:48 Total Bilirubin 0.5 mg/dL (0.3-1.0) 07/05/17 06:05 AST 16 U/L (13-39) 07/05/17 06:05 ALT 8 U/L (7-52) 07/05/17 06:05 Alkaline Phosphatase 66 U/L (34-104) 07/05/17 06:05 Troponin I 0.09 ng/mL (0.01-0.05) H* D 07/04/17 05:50 B-Natriuretic Peptide 215.0 pg/mL (5.0-100.0) H 07/01/17 14:10 Total Protein 5.6 gm/dL (6.0-8.3) L 07/05/17 06:05 Albumin 2.6 gm/dL (3.7-5.3) L 07/05/17 06:05 Globulin 3.0 gm/dL 07/05/17 06:05 Albumin/Globulin Ratio 0.9 (1.0-1.8) L 07/05/17 06:05 Triglycerides 107 mg/dL (<150) 07/04/17 05:50 Cholesterol 114 mg/dL (<200) 07/04/17 05:50 LDL Cholesterol Direct 59 mg/dL (75-193) L 07/04/17 05:50 HDL Cholesterol 31 mg/dL (23-92) 07/04/17 05:50 TSH 1.46 uIU/ml (0.34-5.60) 07/04/17 05:50 Urine Source CATH 07/05/17 18:30 Urine Color YELLOW 07/05/17 18:30 Urine Clarity CLOUDY (CLEAR) H 07/05/17 18:30 Urine pH 5.5 (4.6 - 8.0) 07/05/17 18:30 Ur Specific [place] 1.025 (1.005-1.030) 07/05/17 18:30 Urine Protein 30 mg/dL (NEGATIVE) H 07/05/17 18:30 Urine Glucose (UA) NEGATIVE mg/dL (NEGATIVE) 07/05/17 18:30 Urine Ketones TRACE mg/dL (NEGATIVE) 07/05/17 18:30 Urine Blood SMALL (NEGATIVE) H 07/05/17 18:30 Urine Nitrate NEGATIVE (NEGATIVE) 07/05/17 18:30 Urine Bilirubin NEGATIVE (NEGATIVE) 07/05/17 18:30 Urine Urobilinogen 0.2 E.U./dL (0.2 - 1.0) 07/05/17 18:30 Ur Leukocyte Esterase LARGE (NEGATIVE) H 07/05/17 18:30 Urine RBC 2-5 /hpf (0-5) 07/05/17 18:30 Urine WBC >100 /hpf (0-5) H 07/05/17 18:30 Ur Epithelial Cells FEW /lpf (FEW) 07/05/17 18:30 Urine Bacteria FEW /hpf (NONE SEEN) 07/05/17 18:30 Urine Yeast FEW /hpf (NONE SEEN) H 07/05/17 18:30 Stool Occult Blood POSITIVE (NEGATIVE) H 07/13/17 19:00 Vancomycin Trough 29.3 ug/mL (5-10) H 07/20/17 06:00 - Physical Exam Vitals and I&O: Vital Signs Temp 98.2 F 07/21/17 06:00 Pulse 90 07/21/17 08:40 Resp 25 07/21/17 07:01 BP 139/61 07/21/17 08:41 Pulse Ox 100 07/21/17 08:00 Intake & Output 07/20/17 07/21/17 07/21/17 18:59 06:59 18:59 Intake Total 1767.5 1350 Output Total 1999 1300 Balance -232.5 50 Weight (lbs) 71.214 kg 71.214 kg Intake: Intake, IV Amount 967.5 550 D5-0.45NS 1,000 ml @ 75 867.5 mls/hr IV .[id number] [facility] Rx #:[id number] Piperacillin Sodium/ 100 300 Tazobact 2.25 gm In Sodium Chloride 0.9% 100 ml @ 100 mls/hr IV Q6HR [facility] Rx#:[id number] Vancomycin HCl 1.25 gm In 250 Sodium Chloride 0.9% 250 ml @ 165 mls/hr IV Q36H [facility] Rx#:[id number] Tube Feeding 600 600 Other 200 200 Output: Urine 2000 1300 Other: # Bowel Movements 0 Weight Source Bedscale Bedscale Active Medications: Current Medications Acetaminophen (Tylenol) 650 mg PO Q4H PRN PRN Reason: Fever > 101 Stop: 08/30/17 22:06 Last Admin: 07/18/17 11:40 Dose: 650 mg Albuterol/Ipratropium (Duoneb Neb) 3 ml HHN Q4HRT PRN PRN Reason: Wheezing Stop: 08/30/17 22:13 Albuterol/Ipratropium (Duoneb Neb) 3 ml HHN Q6HRT [facility] Stop: 08/31/17 00:59 Last Admin: 07/21/17 07:01 Dose: 3 ml Ascorbic Acid (Vitamin C) 500 mg PO DAILY [facility] Stop: 08/31/17 08:59 Last Admin: 07/21/17 08:39 Dose: 500 mg Baclofen (Lioresal) 5 mg PO TID [facility] Stop: 09/06/17 08:59 Last Admin: 07/21/17 08:39 Dose: 5 mg Bisacodyl (Dulcolax 10 Mg Supp) 10 mg RC HS PRN PRN Reason: BOWEL CARE MANAGEMENT Stop: 08/30/17 22:18 Budesonide (Pulmicort) 0.5 mg HHN BIDRT [facility] Stop: 08/31/17 18:59 Last Admin: 07/21/17 07:01 Dose: 0.5 mg Cyproheptadine HCl (Periactin) 4 mg PO BID [facility] Stop: 08/31/17 08:59 Last Admin: 07/21/17 08:38 Dose: 4 mg Docusate Sodium (Colace) 100 mg PO BID [facility] Stop: 08/31/17 08:59 Last Admin: 07/21/17 08:40 Dose: 100 mg Ferrous Sulfate (Iron) 325 mg PO BID [facility] Stop: 08/31/17 08:59 Last Admin: 07/21/17 08:40 Dose: 325 mg Folic Acid (Folate) 1 mg PO DAILY [facility] Stop: 08/31/17 08:59 Last Admin: 07/21/17 08:41 Dose: 1 mg Furosemide (Lasix) 20 mg IVP DAILY [facility] Stop: 09/16/17 11:59 Last Admin: 07/21/17 08:41 Dose: 20 mg Dextrose/Sodium Chloride (D5-0.45ns) 1,000 mls @ 75 mls/hr IV .[id number] [facility] Stop: 09/01/17 11:59 Last Admin: 07/20/17 18:19 Dose: 75 mls/hr Norepinephrine Bitartrate 4 mg (/ Sodium Chloride) 254 mls @ 0 mls/hr IV TITR [facility]; Titrate PRN Reason: Protocol Stop: 09/03/17 16:29 Piperacillin Sod/Tazobactam (Sod 2.25 gm/ Sodium Chloride) 100 mls @ 100 mls/ hr IV Q6HR [facility] Stop: 09/14/17 18:44 Last Infusion: 07/21/17 06:10 Dose: Infused Vancomycin HCl 1.25 gm/ Sodium (Chloride) 250 mls @ 165 mls/hr IV Q36H [facility] Stop: 09/18/17 20:59 Last Infusion: 07/20/17 21:50 Dose: Infused Lactobacillus Rhamnosus (Culturelle 15b) 1 each PO DAILY [facility] Stop: 09/01/17 08:59 Last Admin: 07/21/17 08:41 Dose: 1 each Lactulose (Cephulac) 20 gm PO QID PRN PRN Reason: Constipation Stop: 08/30/17 22:18 Last Admin: 07/17/17 17:50 Dose: 20 gm Lorazepam (Ativan) 1 mg IVP Q4HR PRN; Protocol PRN Reason: Anxiety Stop: 09/04/17 08:31 Last Admin: 07/18/17 21:49 Dose: 1 mg Losartan Potassium (Cozaar) 12.5 mg PO DAILY [facility] Stop: 09/18/17 18:14 Last Admin: 07/21/17 08:40 Dose: 12.5 mg Methylprednisolone Sodium Succinate (Solu-Medrol) 40 mg IVP Q8HR [facility] Stop: 09/09/17 20:59 Last Admin: 07/21/17 05:09 Dose: 40 mg Miscellaneous (Probiotic Screen) 1 [facility] PRN PRN PRN Reason: PROTOCOL Stop: 09/01/17 08:44 Miscellaneous (Vancomycin Iv Per Pharmacy) 1 [facility] PRN PRN PRN Reason: PROTOCOL Stop: 09/14/17 17:27 Multivitamins/Vitamin C (Theragran) 1 tab PO DAILY [facility] Stop: 08/31/17 08:59 Last Admin: 07/21/17 08:41 Dose: 1 tab Nicotine (Nicotine Transdermal System) 14 mg TD DAILY [facility] Stop: 09/04/17 08:59 Last Admin: 07/21/17 08:38 Dose: 14 mg Pantoprazole Sodium (Protonix) 40 mg IVP BID [facility] Stop: 09/13/17 08:59 Last Admin: 07/21/17 08:39 Dose: 40 mg General: no acute distress, cachectic HEENT: atraumatic, normocephalic, PERRLA, EOMI Neck: supple, no thyromegaly Cardiovascular: S1S2, regular Lungs: clear to auscultation bilaterally, clear to percussion Abdomen: soft, no tender, no distended Extremities: no cyanosis, no clubbing, no edema Neurological: awake, alert Skin: intact - Procedures Procedures: Procedures Procedure Code Date INSERT EMERGENCY AIRWAY 98932 07/01/17 INSERTION OF ENDOTRACHEAL AIRWAY INTO [place], VIA OPENING [id number] 07/01/17 RESPIRATORY VENTILATION, GREATER THAN 96 CONSECUTIVE HOURS [id number] 07/01/17 VENT MGMT INPAT INIT DAY 26014 07/01/17 Infectious Disease Assmt/Plan - Problem List Patient Problems: All Active Problems WEAKESS AND POOR ORAL INTAKE (Acute) - Assessment Assessment: 1. Leukocytosis. Fever, sepsis. Improving. 2. Pneumonia. 3. Stage IV lung CA. 4. Protein calorie malnutrion, 5. VDRF. 6. ALTERED MENTAL STATUS. - Plan Plan: Continue zosyn and vacno. Poor prognosis. Nutritional Asmnt/Malnutr-PDOC - Dietary Evaluation Malnutrition Findings (Please click <Entered> for more info): Nutritional Asmnt/Malnutrition Start: 07/03/17 13: 22 Text: Status: Complete Freq: Document 07/03/17 13:22 [email or web address] (Rec: 07/03/17 13:35 [id number]) Nutritional Asmnt/Malnutrition Patient General Information Nutritional Screening Consult Diagnosis UTI, Failure to thrive, hypokalemia Pertinent Medical Hx/Surgical Hx CAD, HTN, COPD, Stage 4 lung cancer, peripheral neuropathy, constipation, GERD, anxiety, low back pain Subjective Information Consult received for Failure to Thrive. Current Diet Order/ Nutrition Support Regular diet, pureed with mechaical soft Patient / S.O Not Indicated Pertinent Medications Vitamin C, dulcolax, D5-0.45 NS @ 75 ml/hr, colace, iron, folate, lactulose, theragran Pertinent Labs (07/02) P 1.5, Mg 1.7, albumin 2.9 Nutritional Hx/Data Height 1.6 m Height (Calculated Centimeters) 160.0 Current Weight (lbs) 54.885 kg Weight (Calculated Kilograms) 54.9 Weight (Calculated Grams) 65102.7 [place] Body Weight 115 % [place] Body Weight 105 Body Mass Index (BMI) 21.4 Recent Weight Change No Weight Status Approriate GI Symptoms GI Symptoms None Last BM Prior to admission Difficult in: None Food Allergies No Cultural/Ethnic/Buddhism Belief None indicated Skin Integrity/Comment: Pradeep Cook Current %PO Poor (25-49%) Estimated Nutritional Goals BEE in Kcals: Using Current wt Calories/Kcals/Kg 55kg CBW (25-30kcal/kg) Kcals Calculated 3000-8906 kcal/day Protein: Using Current wt Protein g/k-1.2 gm/kg Protein Calculated 55-65 gm/day Fluid: ml 5921-5175 ml/day (1 ml/kcal) Nutritional Problem 2. Problem Problem Inadequate oral intake related to Etiology poor appetite aeb Signs/Symptoms: meeting <75% of estimated nutrient needs 1. Problem Problem Altered nutrition related lab values related to Etiology electrolyte imbalance aeb Signs/Symptoms: P 1.5, Mg 1.7 Intervention/Recommendation Comments 1. Continue pureed diet as tolerated by patient. 2. RN To assist with feedings and encourage oral intake. 3. Consider adding Boost plus between meals to optimize calorie and protein intake. Expected Outcomes/Goals Expected Outcomes/Goals Oral intake to meet >75% of needs, weight stable, nutrition labs WNL F/U MR 07/06-
--- NOTE | 2017-07-21 10:05 | General Progress Note ---
Subjective - Review of Systems Service Date: 07/21/17 Subjective: unresponsive, opens eyes off vent. EXTubated, NGT feeding Objective - Results Result Diagrams: 07/21/17 04:30 07/21/17 04:30 Recent Labs: Laboratory Last Values WBC 16.3 Th/cmm (4.8-10.8) H 07/21/17 04:30 RBC 2.64 Mil/cmm (3.80-5.20) L 07/21/17 04:30 Hgb 7.8 gm/dL (12-16) L* 07/21/17 04:30 Hct 23.6 % (41.0-60) L 07/21/17 04:30 MCV 89.1 fl (81-100) 07/21/17 04:30 MCH 29.5 pg (27.0-31.0) 07/21/17 04:30 MCHC Differential 33.1 pg (28.0-36.0) 07/21/17 04:30 RDW 16.0 % (11.5-20.0) 07/21/17 04:30 Plt Count 369 Th/cmm (150-400) 07/21/17 04:30 MPV 6.6 fl 07/21/17 04:30 Neutrophils % 92.8 % (40.0-80.0) H 07/20/17 06:00 Band Neutrophils % 2 % (0-10) 07/21/17 04:30 Lymphocytes % 2.5 % (20.0-50.0) L 07/20/17 06:00 Monocytes % 4.2 % (2.0-10.0) 07/20/17 06:00 Eosinophils % 0.3 % (0.0-5.0) 07/20/17 06:00 Basophils % 0.2 % (0.0-2.0) 07/20/17 06:00 Neutrophils (Manual) 94 % (40-80) H 07/21/17 04:30 Lymphocytes 4 % (20-50) L 07/21/17 04:30 Monocytes 1 % (2-10) L 07/17/17 04:33 Eosinophils 0 % (0-5) 07/16/17 04:35 Basophils 0 % (0-3) 07/16/17 04:35 Hypochromia 1+ 07/21/17 04:30 Platelet Estimate ADEQUATE (NORMAL) 07/21/17 04:30 Platelet Morphology NORMAL (NORMAL) 07/16/17 04:35 Polychromasia 1+ 07/14/17 05:00 Ovalocytes 1+ 07/21/17 04:30 RBC Morph Micro Appear NORMAL (NORMAL) 07/16/17 04:35 Specimen Source Arterial 07/19/17 19:14 Sample Site RIGHT BRACHIAL 07/19/17 19:14 pH 7.44 (7.35-7.45) 07/19/17 19:14 pCO2 39.0 mmHg (35.0-45.0) 07/19/17 19:14 pO2 179.0 mmHg (80.0-100.0) H 07/19/17 19:14 HCO3 26.7 mEq/L (20.0-26.0) H 07/19/17 19:14 Base Excess 2.2 mEq/L (-3.0-3.0) 07/19/17 19:14 O2 Saturation 100.0 % (92.0-100.0) 07/19/17 19:14 Darius Test Positive 07/19/17 19:14 Vent Rate NA 07/18/17 10:48 Inspired O2 40 07/19/17 19:14 Tidal Volume NA 07/18/17 10:48 PEEP NA 07/18/17 10:48 Pressure (ins/psv/peep) NA 07/18/17 10:48 Critical Value SC 07/19/17 19:14 Sodium 138 mEq/L (136-145) 07/21/17 04:30 Potassium 3.6 mEq/L (3.5-5.1) 07/21/17 04:30 Chloride 105 mEq/L (98-107) 07/21/17 04:30 Carbon Dioxide 24.8 mEq/L (21.0-31.0) 07/21/17 04:30 Anion Gap 11.8 (7.0-16.0) 07/21/17 04:30 BUN 42 mg/dL (7-25) H 07/21/17 04:30 Creatinine 1.2 mg/dL (0.6-1.2) 07/21/17 04:30 Est GFR ( Amer) TNP 07/21/17 04:30 Est GFR (Non-Af Amer) TNP 07/21/17 04:30 BUN/Creatinine Ratio 35.0 07/21/17 04:30 Glucose 197 mg/dL (70-105) H 07/21/17 04:30 POC Glucose 177 MG/DL (70 - 105) H 07/14/17 11:26 Hemoglobin A1c % 5.2 % (4.0-6.0) 07/17/17 04:33 Whole Bld Lactic Acid 3.99 mmol/L (0.60-1.99) H* 07/05/17 13:00 Calcium 7.3 mg/dL (8.6-10.3) L 07/21/17 04:30 Phosphorus 1.5 mg/dL (2.5-5.0) L 07/02/17 05:20 Magnesium 1.7 mg/dL (1.9-2.7) L 07/02/17 05:20 Iron 21 07/03/17 05:48 TIBC 131 07/03/17 05:48 Iron Saturation 16 07/03/17 05:48 Unsaturated IBC 110 07/03/17 05:48 Ferritin 334 ng/mL (15-150) H 07/03/17 05:48 Total Bilirubin 0.5 mg/dL (0.3-1.0) 07/05/17 06:05 AST 16 U/L (13-39) 07/05/17 06:05 ALT 8 U/L (7-52) 07/05/17 06:05 Alkaline Phosphatase 66 U/L (34-104) 07/05/17 06:05 Troponin I 0.09 ng/mL (0.01-0.05) H* D 07/04/17 05:50 B-Natriuretic Peptide 215.0 pg/mL (5.0-100.0) H 07/01/17 14:10 Total Protein 5.6 gm/dL (6.0-8.3) L 07/05/17 06:05 Albumin 2.6 gm/dL (3.7-5.3) L 07/05/17 06:05 Globulin 3.0 gm/dL 07/05/17 06:05 Albumin/Globulin Ratio 0.9 (1.0-1.8) L 07/05/17 06:05 Triglycerides 107 mg/dL (<150) 07/04/17 05:50 Cholesterol 114 mg/dL (<200) 07/04/17 05:50 LDL Cholesterol Direct 59 mg/dL (75-193) L 07/04/17 05:50 HDL Cholesterol 31 mg/dL (23-92) 07/04/17 05:50 TSH 1.46 uIU/ml (0.34-5.60) 07/04/17 05:50 Urine Source CATH 07/05/17 18:30 Urine Color YELLOW 07/05/17 18:30 Urine Clarity CLOUDY (CLEAR) H 07/05/17 18:30 Urine pH 5.5 (4.6 - 8.0) 07/05/17 18:30 Ur Specific [place] 1.025 (1.005-1.030) 07/05/17 18:30 Urine Protein 30 mg/dL (NEGATIVE) H 07/05/17 18:30 Urine Glucose (UA) NEGATIVE mg/dL (NEGATIVE) 07/05/17 18:30 Urine Ketones TRACE mg/dL (NEGATIVE) 07/05/17 18:30 Urine Blood SMALL (NEGATIVE) H 07/05/17 18:30 Urine Nitrate NEGATIVE (NEGATIVE) 07/05/17 18:30 Urine Bilirubin NEGATIVE (NEGATIVE) 07/05/17 18:30 Urine Urobilinogen 0.2 E.U./dL (0.2 - 1.0) 07/05/17 18:30 Ur Leukocyte Esterase LARGE (NEGATIVE) H 07/05/17 18:30 Urine RBC 2-5 /hpf (0-5) 07/05/17 18:30 Urine WBC >100 /hpf (0-5) H 07/05/17 18:30 Ur Epithelial Cells FEW /lpf (FEW) 07/05/17 18:30 Urine Bacteria FEW /hpf (NONE SEEN) 07/05/17 18:30 Urine Yeast FEW /hpf (NONE SEEN) H 07/05/17 18:30 Stool Occult Blood POSITIVE (NEGATIVE) H 07/13/17 19:00 Vancomycin Trough 29.3 ug/mL (5-10) H 07/20/17 06:00 - Physical Exam Vitals and I&O: Vital Signs Temp 98.2 F 07/21/17 06:00 Pulse 90 07/21/17 09:43 Resp 25 07/21/17 07:01 BP 136/91 07/21/17 09:43 Pulse Ox 100 07/21/17 08:00 Intake & Output 07/20/17 07/21/17 07/21/17 18:59 06:59 18:59 Intake Total 1767.5 1350 Output Total 1999 1300 Balance -232.5 50 Weight (lbs) 71.214 kg 71.214 kg Intake: Intake, IV Amount 967.5 550 D5-0.45NS 1,000 ml @ 75 867.5 mls/hr IV .[id number] [facility] Rx #:[id number] Piperacillin Sodium/ 100 300 Tazobact 2.25 gm In Sodium Chloride 0.9% 100 ml @ 100 mls/hr IV Q6HR [facility] Rx#:[id number] Vancomycin HCl 1.25 gm In 250 Sodium Chloride 0.9% 250 ml @ 165 mls/hr IV Q36H [facility] Rx#:[id number] Tube Feeding 600 600 Other 200 200 Output: Urine 2000 1300 Other: # Bowel Movements 0 Weight Source Bedscale Bedscale Active Medications: Current Medications Acetaminophen (Tylenol) 650 mg PO Q4H PRN PRN Reason: Fever > 101 Stop: 08/30/17 22:06 Last Admin: 07/18/17 11:40 Dose: 650 mg Albuterol/Ipratropium (Duoneb Neb) 3 ml HHN Q4HRT PRN PRN Reason: Wheezing Stop: 08/30/17 22:13 Albuterol/Ipratropium (Duoneb Neb) 3 ml HHN Q6HRT [facility] Stop: 08/31/17 00:59 Last Admin: 07/21/17 07:01 Dose: 3 ml Ascorbic Acid (Vitamin C) 500 mg PO DAILY [facility] Stop: 08/31/17 08:59 Last Admin: 07/21/17 08:39 Dose: 500 mg Baclofen (Lioresal) 5 mg PO TID [facility] Stop: 09/06/17 08:59 Last Admin: 07/21/17 08:39 Dose: 5 mg Bisacodyl (Dulcolax 10 Mg Supp) 10 mg RC HS PRN PRN Reason: BOWEL CARE MANAGEMENT Stop: 08/30/17 22:18 Budesonide (Pulmicort) 0.5 mg HHN BIDRT [facility] Stop: 08/31/17 18:59 Last Admin: 07/21/17 07:01 Dose: 0.5 mg Cyproheptadine HCl (Periactin) 4 mg PO BID [facility] Stop: 08/31/17 08:59 Last Admin: 07/21/17 08:38 Dose: 4 mg Docusate Sodium (Colace) 100 mg PO BID [facility] Stop: 08/31/17 08:59 Last Admin: 07/21/17 08:40 Dose: 100 mg Ferrous Sulfate (Iron) 325 mg PO BID [facility] Stop: 08/31/17 08:59 Last Admin: 07/21/17 08:40 Dose: 325 mg Folic Acid (Folate) 1 mg PO DAILY [facility] Stop: 08/31/17 08:59 Last Admin: 07/21/17 08:41 Dose: 1 mg Furosemide (Lasix) 20 mg IVP DAILY [facility] Stop: 09/16/17 11:59 Last Admin: 07/21/17 08:41 Dose: 20 mg Dextrose/Sodium Chloride (D5-0.45ns) 1,000 mls @ 75 mls/hr IV .[id number] [facility] Stop: 09/01/17 11:59 Last Admin: 07/20/17 18:19 Dose: 75 mls/hr Norepinephrine Bitartrate 4 mg (/ Sodium Chloride) 254 mls @ 0 mls/hr IV TITR [facility]; Titrate PRN Reason: Protocol Stop: 09/03/17 16:29 Piperacillin Sod/Tazobactam (Sod 2.25 gm/ Sodium Chloride) 100 mls @ 100 mls/ hr IV Q6HR [facility] Stop: 09/14/17 18:44 Last Infusion: 07/21/17 06:10 Dose: Infused Vancomycin HCl 1.25 gm/ Sodium (Chloride) 250 mls @ 165 mls/hr IV Q36H [facility] Stop: 09/18/17 20:59 Last Infusion: 07/20/17 21:50 Dose: Infused Lactobacillus Rhamnosus (Culturelle 15b) 1 each PO DAILY [facility] Stop: 09/01/17 08:59 Last Admin: 07/21/17 08:41 Dose: 1 each Lactulose (Cephulac) 20 gm PO QID PRN PRN Reason: Constipation Stop: 08/30/17 22:18 Last Admin: 07/17/17 17:50 Dose: 20 gm Lorazepam (Ativan) 1 mg IVP Q4HR PRN; Protocol PRN Reason: Anxiety Stop: 09/04/17 08:31 Last Admin: 07/18/17 21:49 Dose: 1 mg Losartan Potassium (Cozaar) 12.5 mg PO DAILY [facility] Stop: 09/18/17 18:14 Last Admin: 07/21/17 09:43 Dose: 12.5 mg Methylprednisolone Sodium Succinate (Solu-Medrol) 40 mg IVP Q8HR [facility] Stop: 09/09/17 20:59 Last Admin: 07/21/17 05:09 Dose: 40 mg Miscellaneous (Probiotic Screen) 1 ea PRN PRN PRN Reason: PROTOCOL Stop: 09/01/17 08:44 Miscellaneous (Vancomycin Iv Per Pharmacy) 1 ea PRN PRN PRN Reason: PROTOCOL Stop: 09/14/17 17:27 Multivitamins/Vitamin C (Theragran) 1 tab PO DAILY [facility] Stop: 08/31/17 08:59 Last Admin: 07/21/17 08:41 Dose: 1 tab Nicotine (Nicotine Transdermal System) 14 mg TD DAILY [facility] Stop: 09/04/17 08:59 Last Admin: 07/21/17 08:38 Dose: 14 mg Pantoprazole Sodium (Protonix) 40 mg IVP BID [facility] Stop: 09/13/17 08:59 Last Admin: 07/21/17 08:39 Dose: 40 mg General: Alert, Other (awake now. NAD) HEENT: Atraumatic, Other (et in place) Neck: Supple, no JVD, no Thyromegaly Cardiovascular: Regular rate, Other (in A fib) Lungs: Other (Intubated, has bl rales) Abdomen: Bowel sounds, Soft, no Tender, no Hepatomegaly Extremities: Edema, no Clubbing Neurological: Other (Pt unable to participate in test) Skin: Other (+2 pitting edema), no Rash Psych/Mental Status: Other (no psychosis) - Procedures Procedures: Procedures Procedure Code Date INSERT EMERGENCY AIRWAY 19732 07/01/17 INSERTION OF ENDOTRACHEAL AIRWAY INTO [place]ACHEA, VIA OPENING [id number] 07/01/17 RESPIRATORY VENTILATION, GREATER THAN 96 CONSECUTIVE HOURS [id number] 07/01/17 VENT MGMT INPAT INIT DAY 80149 07/01/17 Assessment/Plan - Problem List Patient Problems: All Active Problems WEAKESS AND POOR ORAL INTAKE (Acute) - Assessment Assessment: * Advanced metastatic cancer * poor functional status * Anemia likely of chronic disease * Respiratory failure s/p intubation 07/05 off cpap, 5 back on vent. 07/20 extubated iron studies cw anemia of chronic disease. hgb better today without transfusion monitor hgb and transfuse for < 7.5 swallow evaluation very Poor prognosis Nutritional Asmnt/Malnutr-PDOC - Dietary Evaluation Malnutrition Findings (Please click <Entered> for more info): Nutritional Asmnt/Malnutrition Start: 07/03/17 13: 22 Text: Status: Complete Freq: Document 07/03/17 13:22 MMULHERN (Rec: 07/03/17 13:35 [facility] Nutritional Asmnt/Malnutrition Patient General Information Nutritional Screening Consult Diagnosis UTI, Failure to thrive, hypokalemia Pertinent Medical Hx/Surgical Hx CAD, HTN, COPD, Stage 4 lung cancer, peripheral neuropathy, constipation, GERD, anxiety, low back pain Subjective Information Consult received for Failure to Thrive. Current Diet Order/ Nutrition Support Regular diet, pureed with mechaical soft Patient / S.O Not Indicated Pertinent Medications Vitamin C, dulcolax, D5-0.45 NS @ 75 ml/hr, colace, iron, folate, lactulose, theragran Pertinent Labs (07/02) P 1.5, Mg 1.7, albumin 2.9 Nutritional Hx/Data Height 1.6 m Height (Calculated Centimeters) 160.0 Current Weight (lbs) 54.885 kg Weight (Calculated Kilograms) 54.9 Weight (Calculated Grams) 49428.7 [place] Body Weight 115 % [place] Body Weight 105 Body Mass Index (BMI) 21.4 Recent Weight Change No Weight Status Approriate GI Symptoms GI Symptoms None Last BM Prior to admission Difficult in: None Food Allergies No Cultural/Ethnic/Hoahaoism Belief None indicated Skin Integrity/Comment: Pradeep 15 Current %PO Poor (25-49%) Estimated Nutritional Goals BEE in Kcals: Using Current wt Calories/Kcals/Kg 55kg CBW (25-30kcal/kg) Kcals Calculated 0375-9736 kcal/day Protein: Using Current wt Protein g/k-1.2 gm/kg Protein Calculated 55-65 gm/day Fluid: ml 8043-1030 ml/day (1 ml/kcal) Nutritional Problem 2. Problem Problem Inadequate oral intake related to Etiology poor appetite aeb Signs/Symptoms: meeting <75% of estimated nutrient needs 1. Problem Problem Altered nutrition related lab values related to Etiology electrolyte imbalance aeb Signs/Symptoms: P 1.5, Mg 1.7 Intervention/Recommendation Comments 1. Continue pureed diet as tolerated by patient. 2. RN To assist with feedings and encourage oral intake. 3. Consider adding Boost plus between meals to optimize calorie and protein intake. Expected Outcomes/Goals Expected Outcomes/Goals Oral intake to meet >75% of needs, weight stable, nutrition labs WNL F/U MR
--- NOTE | 2017-07-21 13:50 | GI Progress Note ---
Subjective - Review of Systems Subjective: NO ACTIVE BLEEDING HAS NGT Objective - Results Result Diagrams: 07/21/17 04:30 07/21/17 04:30 Recent Labs: Laboratory Last Values WBC 16.3 Th/cmm (4.8-10.8) H 07/21/17 04:30 RBC 2.64 Mil/cmm (3.80-5.20) L 07/21/17 04:30 Hgb 7.8 gm/dL (12-16) L* 07/21/17 04:30 Hct 23.6 % (41.0-60) L 07/21/17 04:30 MCV 89.1 fl (81-100) 07/21/17 04:30 MCH 29.5 pg (27.0-31.0) 07/21/17 04:30 MCHC Differential 33.1 pg (28.0-36.0) 07/21/17 04:30 RDW 16.0 % (11.5-20.0) 07/21/17 04:30 Plt Count 369 Th/cmm (150-400) 07/21/17 04:30 MPV 6.6 fl 07/21/17 04:30 Neutrophils % 92.8 % (40.0-80.0) H 07/20/17 06:00 Band Neutrophils % 2 % (0-10) 07/21/17 04:30 Lymphocytes % 2.5 % (20.0-50.0) L 07/20/17 06:00 Monocytes % 4.2 % (2.0-10.0) 07/20/17 06:00 Eosinophils % 0.3 % (0.0-5.0) 07/20/17 06:00 Basophils % 0.2 % (0.0-2.0) 07/20/17 06:00 Neutrophils (Manual) 94 % (40-80) H 07/21/17 04:30 Lymphocytes 4 % (20-50) L 07/21/17 04:30 Monocytes 1 % (2-10) L 07/17/17 04:33 Eosinophils 0 % (0-5) 07/16/17 04:35 Basophils 0 % (0-3) 07/16/17 04:35 Hypochromia 1+ 07/21/17 04:30 Platelet Estimate ADEQUATE (NORMAL) 07/21/17 04:30 Platelet Morphology NORMAL (NORMAL) 07/16/17 04:35 Polychromasia 1+ 07/14/17 05:00 Ovalocytes 1+ 07/21/17 04:30 RBC Morph Micro Appear NORMAL (NORMAL) 07/16/17 04:35 Specimen Source Arterial 07/19/17 19:14 Sample Site RIGHT BRACHIAL 07/19/17 19:14 pH 7.44 (7.35-7.45) 07/19/17 19:14 pCO2 39.0 mmHg (35.0-45.0) 07/19/17 19:14 pO2 179.0 mmHg (80.0-100.0) H 07/19/17 19:14 HCO3 26.7 mEq/L (20.0-26.0) H 07/19/17 19:14 Base Excess 2.2 mEq/L (-3.0-3.0) 07/19/17 19:14 O2 Saturation 100.0 % (92.0-100.0) 07/19/17 19:14 Darius Test Positive 07/19/17 19:14 Vent Rate NA 07/18/17 10:48 Inspired O2 40 07/19/17 19:14 Tidal Volume NA 07/18/17 10:48 PEEP NA 07/18/17 10:48 Pressure (ins/psv/peep) NA 07/18/17 10:48 Critical Value SC 07/19/17 19:14 Sodium 138 mEq/L (136-145) 07/21/17 04:30 Potassium 3.6 mEq/L (3.5-5.1) 07/21/17 04:30 Chloride 105 mEq/L (98-107) 07/21/17 04:30 Carbon Dioxide 24.8 mEq/L (21.0-31.0) 07/21/17 04:30 Anion Gap 11.8 (7.0-16.0) 07/21/17 04:30 BUN 42 mg/dL (7-25) H 07/21/17 04:30 Creatinine 1.2 mg/dL (0.6-1.2) 07/21/17 04:30 Est GFR ( Amer) TNP 07/21/17 04:30 Est GFR (Non-Af Amer) TNP 07/21/17 04:30 BUN/Creatinine Ratio 35.0 07/21/17 04:30 Glucose 197 mg/dL (70-105) H 07/21/17 04:30 POC Glucose 177 MG/DL (70 - 105) H 07/14/17 11:26 Hemoglobin A1c % 5.2 % (4.0-6.0) 07/17/17 04:33 Whole Bld Lactic Acid 3.99 mmol/L (0.60-1.99) H* 07/05/17 13:00 Calcium 7.3 mg/dL (8.6-10.3) L 07/21/17 04:30 Phosphorus 1.5 mg/dL (2.5-5.0) L 07/02/17 05:20 Magnesium 1.7 mg/dL (1.9-2.7) L 07/02/17 05:20 Iron 21 07/03/17 05:48 TIBC 131 07/03/17 05:48 Iron Saturation 16 07/03/17 05:48 Unsaturated IBC 110 07/03/17 05:48 Ferritin 334 ng/mL (15-150) H 07/03/17 05:48 Total Bilirubin 0.5 mg/dL (0.3-1.0) 07/05/17 06:05 AST 16 U/L (13-39) 07/05/17 06:05 ALT 8 U/L (7-52) 07/05/17 06:05 Alkaline Phosphatase 66 U/L (34-104) 07/05/17 06:05 Troponin I 0.09 ng/mL (0.01-0.05) H* D 07/04/17 05:50 B-Natriuretic Peptide 215.0 pg/mL (5.0-100.0) H 07/01/17 14:10 Total Protein 5.6 gm/dL (6.0-8.3) L 07/05/17 06:05 Albumin 2.6 gm/dL (3.7-5.3) L 07/05/17 06:05 Globulin 3.0 gm/dL 07/05/17 06:05 Albumin/Globulin Ratio 0.9 (1.0-1.8) L 07/05/17 06:05 Triglycerides 107 mg/dL (<150) 07/04/17 05:50 Cholesterol 114 mg/dL (<200) 07/04/17 05:50 LDL Cholesterol Direct 59 mg/dL (75-193) L 07/04/17 05:50 HDL Cholesterol 31 mg/dL (23-92) 07/04/17 05:50 TSH 1.46 uIU/ml (0.34-5.60) 07/04/17 05:50 Urine Source CATH 07/05/17 18:30 Urine Color YELLOW 07/05/17 18:30 Urine Clarity CLOUDY (CLEAR) H 07/05/17 18:30 Urine pH 5.5 (4.6 - 8.0) 07/05/17 18:30 Ur Specific [place] 1.025 (1.005-1.030) 07/05/17 18:30 Urine Protein 30 mg/dL (NEGATIVE) H 07/05/17 18:30 Urine Glucose (UA) NEGATIVE mg/dL (NEGATIVE) 07/05/17 18:30 Urine Ketones TRACE mg/dL (NEGATIVE) 07/05/17 18:30 Urine Blood SMALL (NEGATIVE) H 07/05/17 18:30 Urine Nitrate NEGATIVE (NEGATIVE) 07/05/17 18:30 Urine Bilirubin NEGATIVE (NEGATIVE) 07/05/17 18:30 Urine Urobilinogen 0.2 E.U./dL (0.2 - 1.0) 07/05/17 18:30 Ur Leukocyte Esterase LARGE (NEGATIVE) H 07/05/17 18:30 Urine RBC 2-5 /hpf (0-5) 07/05/17 18:30 Urine WBC >100 /hpf (0-5) H 07/05/17 18:30 Ur Epithelial Cells FEW /lpf (FEW) 07/05/17 18:30 Urine Bacteria FEW /hpf (NONE SEEN) 07/05/17 18:30 Urine Yeast FEW /hpf (NONE SEEN) H 07/05/17 18:30 Stool Occult Blood POSITIVE (NEGATIVE) H 07/13/17 19:00 Vancomycin Trough 29.3 ug/mL (5-10) H 07/20/17 06:00 - Physical Exam Vitals and I&O: Vital Signs Temp 99 F 07/21/17 08:00 Pulse 88 07/21/17 11:00 Resp 25 07/21/17 11:00 BP 134/55 07/21/17 11:00 Pulse Ox 100 07/21/17 11:00 Intake & Output 07/20/17 07/21/1718 18:59 06:59 18:59 Intake Total 1767.5 1350 Output Total 1999 1300 Balance -232.5 50 Weight (lbs) 71.214 kg 71.214 kg Intake: Intake, IV Amount 967.5 550 D5-0.45NS 1,000 ml @ 75 867.5 mls/hr IV .[id number] [facility] Rx #:[id number] Piperacillin Sodium/ 100 300 Tazobact 2.25 gm In Sodium Chloride 0.9% 100 ml @ 100 mls/hr IV Q6HR [facility] Rx#:[id number] Vancomycin HCl 1.25 gm In 250 Sodium Chloride 0.9% 250 ml @ 165 mls/hr IV Q36H [facility] Rx#:[id number] Tube Feeding 600 600 Other 200 200 Output: Urine 1999 1300 Other: # Bowel Movements 0 Weight Source Bedscale Bedscale Active Medications: Current Medications Acetaminophen (Tylenol) 650 mg PO Q4H PRN PRN Reason: Fever > 101 Stop: 08/30/17 22:06 Last Admin: 07/21/17 11:28 Dose: 650 mg Albuterol/Ipratropium (Duoneb Neb) 3 ml HHN Q4HRT PRN PRN Reason: Wheezing Stop: 08/30/17 22:13 Albuterol/Ipratropium (Duoneb Neb) 3 ml HHN Q6HRT [facility] Stop: 08/31/17 00:59 Last Admin: 07/21/17 07:01 Dose: 3 ml Ascorbic Acid (Vitamin C) 500 mg PO DAILY [facility] Stop: 08/31/17 08:59 Last Admin: 07/21/17 08:39 Dose: 500 mg Baclofen (Lioresal) 5 mg PO TID [facility] Stop: 09/06/17 08:59 Last Admin: 07/21/17 08:39 Dose: 5 mg Bisacodyl (Dulcolax 10 Mg Supp) 10 mg RC HS PRN PRN Reason: BOWEL CARE MANAGEMENT Stop: 08/30/17 22:18 Budesonide (Pulmicort) 0.5 mg HHN BIDRT [facility] Stop: 08/31/17 18:59 Last Admin: 07/21/17 07:01 Dose: 0.5 mg Cyproheptadine HCl (Periactin) 4 mg PO BID [facility] Stop: 08/31/17 08:59 Last Admin: 07/21/17 08:38 Dose: 4 mg Docusate Sodium (Colace) 100 mg PO BID [facility] Stop: 08/31/17 08:59 Last Admin: 07/21/17 08:40 Dose: 100 mg Ferrous Sulfate (Iron) 325 mg PO BID [facility] Stop: 08/31/17 08:59 Last Admin: 07/21/17 08:40 Dose: 325 mg Folic Acid (Folate) 1 mg PO DAILY [facility] Stop: 08/31/17 08:59 Last Admin: 07/21/17 08:41 Dose: 1 mg Furosemide (Lasix) 20 mg IVP DAILY [facility] Stop: 09/16/17 11:59 Last Admin: 07/21/17 08:41 Dose: 20 mg Dextrose/Sodium Chloride (D5-0.45ns) 1,000 mls @ 75 mls/hr IV .[id number] [facility] Stop: 09/01/17 11:59 Last Admin: 07/20/17 18:19 Dose: 75 mls/hr Norepinephrine Bitartrate 4 mg (/ Sodium Chloride) 254 mls @ 0 mls/hr IV TITR [facility]; Titrate PRN Reason: Protocol Stop: 09/03/17 16:29 Piperacillin Sod/Tazobactam (Sod 2.25 gm/ Sodium Chloride) 100 mls @ 100 mls/ hr IV Q6HR [facility] Stop: 09/14/17 18:44 Last Admin: 07/21/17 11:28 Dose: 100 mls/hr Vancomycin HCl 1.25 gm/ Sodium (Chloride) 250 mls @ 165 mls/hr IV Q36H SHADI Stop: 09/18/17 20:59 Last Infusion: 07/20/17 21:50 Dose: Infused Lactobacillus Rhamnosus (Culturelle 15b) 1 each PO DAILY SHADI Stop: 09/01/17 08:59 Last Admin: 07/21/17 08:41 Dose: 1 each Lactulose (Cephulac) 20 gm PO QID PRN PRN Reason: Constipation Stop: 08/30/17 22:18 Last Admin: 07/17/17 17:50 Dose: 20 gm Lorazepam (Ativan) 1 mg IVP Q4HR PRN; Protocol PRN Reason: Anxiety Stop: 09/04/17 08:31 Last Admin: 07/18/17 21:49 Dose: 1 mg Losartan Potassium (Cozaar) 12.5 mg PO DAILY SHADI Stop: 09/18/17 18:14 Last Admin: 07/21/17 09:43 Dose: 12.5 mg Methylprednisolone Sodium Succinate (Solu-Medrol) 40 mg IVP Q8HR SHADI Stop: 09/09/17 20:59 Last Admin: 07/21/17 05:09 Dose: 40 mg Miscellaneous (Probiotic Screen) 1 ea PRN PRN PRN Reason: PROTOCOL Stop: 09/01/17 08:44 Miscellaneous (Vancomycin Iv Per Pharmacy) 1 [facility] PRN PRN PRN Reason: PROTOCOL Stop: 09/14/17 17:27 Multivitamins/Vitamin C (Theragran) 1 tab PO DAILY SHADI Stop: 08/31/17 08:59 Last Admin: 07/21/17 08:41 Dose: 1 tab Nicotine (Nicotine Transdermal System) 14 mg TD DAILY SHADI Stop: 09/04/17 08:59 Last Admin: 07/21/17 08:38 Dose: 14 mg Pantoprazole Sodium (Protonix) 40 mg IVP BID SHADI Stop: 09/13/17 08:59 Last Admin: 07/21/17 08:39 Dose: 40 mg General: Alert, Other (awake now. NAD) HEENT: Atraumatic, Other (et in place) Neck: Supple, no JVD, no Thyromegaly Cardiovascular: Regular rate, Other (in A fib) Lungs: Other (Intubated, has bl rales) Abdomen: Bowel sounds, Soft, no Tender, no Hepatomegaly Extremities: Edema, no Clubbing Neurological: Other (Pt unable to participate in test) Skin: Other (+2 pitting edema), no Rash Psych/Mental Status: Other (no psychosis) - Procedures Procedures: Procedures Procedure Code Date INSERT EMERGENCY AIRWAY 23848 07/01/17 INSERTION OF ENDOTRACHEAL AIRWAY INTO TRACHEA, VIA OPENING [id number] 07/01/17 RESPIRATORY VENTILATION, GREATER THAN 96 CONSECUTIVE HOURS [id number] 07/01/17 VENT MGMT INPAT INIT DAY 79102 07/01/17 Assessment/Plan - Problem List Patient Problems: All Active Problems WEAKESS AND POOR ORAL INTAKE (Acute) - Assessment Assessment: 87 YO FEMALE WITH LUNG CA ANEMIA WITH OB + STOOL NO ACTIVE BLEEDING ENDOSCOPIC WORK UP CAN BE DONE HOWEVER PT IS HIGH RISK PER STAFF FAMILY DOES NOT WANT PEG 1.FOLLOW H/H; TRANSFUSE PRN 2.CONT PROTONIX 3.CONSIDER ENDOSCOPIC WORK UP IF ACTIVE BLEED OR SIG DROP IN HGB
[2017-07-22] MEDS: Piperacillin Sodium/Tazobact 2.25 GM in Sodium Chloride 0.9% 100 ML IV SCH ×5 (00:37→23:50)
[2017-07-22] MEDS: Albuterol/Ipratropium Neb 3 ML AERS HHN SCH ×3 (00:48→13:20)
[2017-07-22 04:37] LABS: MANUAL DIFF REQUIRED? YES; RED BLOOD COUNT 2.58 Mil/cmm (3.80-5.20)
[2017-07-22 04:43] LABS: HEMATOCRIT 22.8 % (41.0-60); MEAN CELL VOLUME 88.5 fl (81-100); MEAN CORPUSCULAR HEMOGLOBIN 29.9 pg (27.0-31.0); MEAN CORPUSCULAR HGB CONC 33.8 pg (28.0-36.0); MEAN PLATELET VOLUME 6.9 fl; PLATELET COUNT 335 Th/cmm (150-400); RED CELL DISTRIBUTION WIDTH 15.6 % (11.5-20.0)
[2017-07-22 04:49] LABS: HEMOGLOBIN 7.7 gm/dL (12-16); WHITE BLOOD COUNT 16.5 Th/cmm (4.8-10.8)
[2017-07-22 04:53] LABS: ANION GAP 11.3 (7.0-16.0); BUN - UREA NITROGEN 42 mg/dL (7-25); CALCIUM SERUM 7.4 mg/dL (8.6-10.3); CARBON DIOXIDE 26.7 mEq/L (21.0-31.0); CHLORIDE 105 mEq/L (98-107); CREATININE - SERUM 1.2 mg/dL (0.6-1.2); GLUCOSE 207 mg/dL (70-105); SODIUM SERUM 139 mEq/L (136-145)
[2017-07-22] MEDS: methylPREDNISolone SS 40 mg Vial IVP SCH ×3 (05:13→20:26)
[2017-07-22 05:23] LABS: LYMPHOCYTE 4 % (20-50); MONOCYTE 1 % (2-10); NEUTROPHILS 95 % (40-80); PLATELET ESTIMATE ADEQUATE (NORMAL); TOTAL CELLS COUNTED 100
[2017-07-22] MEDS: Budesonide 0.5 Mg/2 mL Ud HHN SCH ×2 (07:44→18:57)
[2017-07-22] MEDS: Lactobacillus Rhamnosus GG 15 Billion CFU CAP.SPRINK PO SCH (08:08)
[2017-07-22] MEDS: Multivitamin Tab PO SCH (08:10)
[2017-07-22] MEDS: Ferrous Sulfate 325 MG TAB PO SCH ×2 (08:10→16:06)
[2017-07-22] MEDS: Cyproheptadine 4 mg Tab PO SCH ×2 (08:10→16:06)
[2017-07-22] MEDS: Nicotine 14 mg/24 hr Tdm TD SCH (08:10)
--- NOTE | 2017-07-22 08:58 | General Progress Note ---
Subjective - Review of Systems Service Date: 07/22/17 Subjective: Pt seen and eval. In bed. Seen by jayson, bren, and heme onc, all of whom agree with hospice care. Dr. Montanez also discussed poor prog with son. No fevers or chills. WBC elevated, but improving. No falls. Pt went into A fib pm 07/04/16, and was transferred to ICU on digoxin. Intubated on 07/05/17. Was on Amiodarone and Levophed drip, both of which are off as of 07/06/17. She had large bm night of 07/10/17. Pt was extubated night of 07/19/17. On nasal cannula O2 at 2 L now. Awake, but very weak. Son does not want GT. Swallow eval today. Objective - Results Result Diagrams: 07/22/17 04:05 07/22/17 04:05 Recent Labs: Laboratory Last Values WBC 16.5 Th/cmm (4.8-10.8) H 07/22/17 04:05 RBC 2.58 Mil/cmm (3.80-5.20) L 07/22/17 04:05 Hgb 7.7 gm/dL (12-16) L* 07/22/17 04:05 Hct 22.8 % (41.0-60) L 07/22/17 04:05 MCV 88.5 fl (81-100) 07/22/17 04:05 MCH 29.9 pg (27.0-31.0) 07/22/17 04:05 MCHC Differential 33.8 pg (28.0-36.0) 07/22/17 04:05 RDW 15.6 % (11.5-20.0) 07/22/17 04:05 Plt Count 335 Th/cmm (150-400) 07/22/17 04:05 MPV 6.9 fl 07/22/17 04:05 Neutrophils % 92.8 % (40.0-80.0) H 07/20/17 06:00 Band Neutrophils % 2 % (0-10) 07/21/17 04:30 Lymphocytes % 2.5 % (20.0-50.0) L 07/20/17 06:00 Monocytes % 4.2 % (2.0-10.0) 07/20/17 06:00 Eosinophils % 0.3 % (0.0-5.0) 07/20/17 06:00 Basophils % 0.2 % (0.0-2.0) 07/20/17 06:00 Neutrophils (Manual) 95 % (40-80) H 07/22/17 04:05 Lymphocytes 4 % (20-50) L 07/22/17 04:05 Monocytes 1 % (2-10) L 07/22/17 04:05 Eosinophils 0 % (0-5) 07/16/17 04:35 Basophils 0 % (0-3) 07/16/17 04:35 Hypochromia 1+ 07/21/17 04:30 Platelet Estimate ADEQUATE (NORMAL) 07/22/17 04:05 Platelet Morphology NORMAL (NORMAL) 07/16/17 04:35 Polychromasia 1+ 07/14/17 05:00 Ovalocytes 1+ 07/21/17 04:30 RBC Morph Micro Appear NORMAL (NORMAL) 07/16/17 04:35 Specimen Source Arterial 07/19/17 19:14 Sample Site RIGHT BRACHIAL 07/19/17 19:14 pH 7.44 (7.35-7.45) 07/19/17 19:14 pCO2 39.0 mmHg (35.0-45.0) 07/19/17 19:14 pO2 179.0 mmHg (80.0-100.0) H 07/19/17 19:14 HCO3 26.7 mEq/L (20.0-26.0) H 07/19/17 19:14 Base Excess 2.2 mEq/L (-3.0-3.0) 07/19/17 19:14 O2 Saturation 100.0 % (92.0-100.0) 07/19/17 19:14 Darius Test Positive 07/19/17 19:14 Vent Rate NA 07/18/17 10:48 Inspired O2 40 07/19/17 19:14 Tidal Volume NA 07/18/17 10:48 PEEP NA 07/18/17 10:48 Pressure (ins/psv/peep) NA 07/18/17 10:48 Critical Value SC 07/19/17 19:14 Sodium 139 mEq/L (136-145) 07/22/17 04:05 Potassium 4.0 mEq/L (3.5-5.1) 07/22/17 04:05 Chloride 105 mEq/L (98-107) 07/22/17 04:05 Carbon Dioxide 26.7 mEq/L (21.0-31.0) 07/22/17 04:05 Anion Gap 11.3 (7.0-16.0) 07/22/17 04:05 BUN 42 mg/dL (7-25) H 07/22/17 04:05 Creatinine 1.2 mg/dL (0.6-1.2) 07/22/17 04:05 Est GFR ( Amer) TNP 07/22/17 04:05 Est GFR (Non-Af Amer) TNP 07/22/17 04:05 BUN/Creatinine Ratio 35.0 07/22/17 04:05 Glucose 207 mg/dL (70-105) H 07/22/17 04:05 POC Glucose 177 MG/DL (70 - 105) H 07/14/17 11:26 Hemoglobin A1c % 5.2 % (4.0-6.0) 07/17/17 04:33 Whole Bld Lactic Acid 3.99 mmol/L (0.60-1.99) H* 07/05/17 13:00 Calcium 7.4 mg/dL (8.6-10.3) L 07/22/17 04:05 Phosphorus 1.5 mg/dL (2.5-5.0) L 07/02/17 05:20 Magnesium 1.7 mg/dL (1.9-2.7) L 07/02/17 05:20 Iron 21 07/03/17 05:48 TIBC 131 07/03/17 05:48 Iron Saturation 16 07/03/17 05:48 Unsaturated IBC 110 07/03/17 05:48 Ferritin 334 ng/mL (15-150) H 07/03/17 05:48 Total Bilirubin 0.5 mg/dL (0.3-1.0) 07/05/17 06:05 AST 16 U/L (13-39) 07/05/17 06:05 ALT 8 U/L (7-52) 07/05/17 06:05 Alkaline Phosphatase 66 U/L (34-104) 07/05/17 06:05 Troponin I 0.09 ng/mL (0.01-0.05) H* D 07/04/17 05:50 B-Natriuretic Peptide 215.0 pg/mL (5.0-100.0) H 07/01/17 14:10 Total Protein 5.6 gm/dL (6.0-8.3) L 07/05/17 06:05 Albumin 2.6 gm/dL (3.7-5.3) L 07/05/17 06:05 Globulin 3.0 gm/dL 07/05/17 06:05 Albumin/Globulin Ratio 0.9 (1.0-1.8) L 07/05/17 06:05 Triglycerides 107 mg/dL (<150) 07/04/17 05:50 Cholesterol 114 mg/dL (<200) 07/04/17 05:50 LDL Cholesterol Direct 59 mg/dL (75-193) L 07/04/17 05:50 HDL Cholesterol 31 mg/dL (23-92) 07/04/17 05:50 TSH 1.46 uIU/ml (0.34-5.60) 07/04/17 05:50 Urine Source CATH 07/05/17 18:30 Urine Color YELLOW 07/05/17 18:30 Urine Clarity CLOUDY (CLEAR) H 07/05/17 18:30 Urine pH 5.5 (4.6 - 8.0) 07/05/17 18:30 Ur Specific [place] 1.025 (1.005-1.030) 07/05/17 18:30 Urine Protein 30 mg/dL (NEGATIVE) H 07/05/17 18:30 Urine Glucose (UA) NEGATIVE mg/dL (NEGATIVE) 07/05/17 18:30 Urine Ketones TRACE mg/dL (NEGATIVE) 07/05/17 18:30 Urine Blood SMALL (NEGATIVE) H 07/05/17 18:30 Urine Nitrate NEGATIVE (NEGATIVE) 07/05/17 18:30 Urine Bilirubin NEGATIVE (NEGATIVE) 07/05/17 18:30 Urine Urobilinogen 0.2 E.U./dL (0.2 - 1.0) 07/05/17 18:30 Ur Leukocyte Esterase LARGE (NEGATIVE) H 07/05/17 18:30 Urine RBC 2-5 /hpf (0-5) 07/05/17 18:30 Urine WBC >100 /hpf (0-5) H 07/05/17 18:30 Ur Epithelial Cells FEW /lpf (FEW) 07/05/17 18:30 Urine Bacteria FEW /hpf (NONE SEEN) 07/05/17 18:30 Urine Yeast FEW /hpf (NONE SEEN) H 07/05/17 18:30 Stool Occult Blood POSITIVE (NEGATIVE) H 07/13/17 19:00 Vancomycin Trough 23.1 ug/mL (5-10) H 07/22/17 08:00 - Physical Exam Vitals and I&O: Vital Signs Temp 99 F 07/22/17 07:00 Pulse 89 07/22/17 08:09 Resp 25 07/22/17 07:52 BP 142/68 07/22/17 08:09 Pulse Ox 100 07/22/17 08:00 Intake & Output 07/21/17 07/22/17 07/22/17 18:59 06:59 18:59 Intake Total 1050 1000 Output Total 1300 1200 Balance -250 -200 Weight (lbs) 71.214 kg 71.214 kg Intake: Intake, IV Amount 100 200 Piperacillin Sodium/ 100 200 Tazobact 2.25 gm In Sodium Chloride 0.9% 100 ml @ 100 mls/hr IV Q6HR [facility] Rx#:[id number] Tube Feeding 600 600 Other 350 200 Output: Urine 1300 1200 Other: # Bowel Movements 0 Weight Source Bedscale Bedscale Active Medications: Current Medications Acetaminophen (Tylenol) 650 mg PO Q4H PRN PRN Reason: Fever > 101 Stop: 08/30/17 22:06 Last Admin: 07/21/17 11:28 Dose: 650 mg Albuterol/Ipratropium (Duoneb Neb) 3 ml HHN Q4HRT PRN PRN Reason: Wheezing Stop: 08/30/17 22:13 Albuterol/Ipratropium (Duoneb Neb) 3 ml HHN Q6HRT [facility] Stop: 08/31/17 00:59 Last Admin: 07/22/17 07:43 Dose: 3 ml Ascorbic Acid (Vitamin C) 500 mg PO DAILY [facility] Stop: 08/31/17 08:59 Last Admin: 07/22/17 08:08 Dose: 500 mg Baclofen (Lioresal) 5 mg PO TID [facility] Stop: 09/06/17 08:59 Last Admin: 07/22/17 08:08 Dose: 5 mg Bisacodyl (Dulcolax 10 Mg Supp) 10 mg RC HS PRN PRN Reason: BOWEL CARE MANAGEMENT Stop: 08/30/17 22:18 Last Admin: 07/22/17 08:10 Dose: 10 mg Budesonide (Pulmicort) 0.5 mg HHN BIDRT [facility] Stop: 08/31/17 18:59 Last Admin: 07/22/17 07:44 Dose: 0.5 mg Cyproheptadine HCl (Periactin) 4 mg PO BID [facility] Stop: 08/31/17 08:59 Last Admin: 07/22/17 08:10 Dose: 4 mg Docusate Sodium (Colace) 100 mg PO BID [facility] Stop: 08/31/17 08:59 Last Admin: 07/22/17 08:08 Dose: 100 mg Ferrous Sulfate (Iron) 325 mg PO BID [facility] Stop: 08/31/17 08:59 Last Admin: 07/22/17 08:10 Dose: 325 mg Folic Acid (Folate) 1 mg PO DAILY [facility] Stop: 08/31/17 08:59 Last Admin: 07/22/17 08:08 Dose: 1 mg Furosemide (Lasix) 20 mg IVP DAILY [facility] Stop: 09/16/17 11:59 Last Admin: 07/22/17 08:08 Dose: 20 mg Dextrose/Sodium Chloride (D5-0.45ns) 1,000 mls @ 75 mls/hr IV .[id number] [facility] Stop: 09/01/17 11:59 Last Admin: 07/20/17 18:19 Dose: 75 mls/hr Norepinephrine Bitartrate 4 mg (/ Sodium Chloride) 254 mls @ 0 mls/hr IV TITR [facility]; Titrate PRN Reason: Protocol Stop: 09/03/17 16:29 Piperacillin Sod/Tazobactam (Sod 2.25 gm/ Sodium Chloride) 100 mls @ 100 mls/ hr IV Q6HR [facility] Stop: 09/14/17 18:44 Last Admin: 07/22/17 05:13 Dose: 100 mls/hr Vancomycin HCl 1.25 gm/ Sodium (Chloride) 250 mls @ 165 mls/hr IV Q36H [facility] Stop: 09/18/17 20:59 Last Infusion: 07/20/17 21:50 Dose: Infused Lactobacillus Rhamnosus (Culturelle 15b) 1 each PO DAILY [facility] Stop: 09/01/17 08:59 Last Admin: 07/22/17 08:08 Dose: 1 each Lactulose (Cephulac) 20 gm PO QID PRN PRN Reason: Constipation Stop: 08/30/17 22:18 Last Admin: 07/17/17 17:50 Dose: 20 gm Lorazepam (Ativan) 1 mg IVP Q4HR PRN; Protocol PRN Reason: Anxiety Stop: 09/04/17 08:31 Last Admin: 07/18/17 21:49 Dose: 1 mg Losartan Potassium (Cozaar) 12.5 mg PO DAILY [facility] Stop: 09/18/17 18:14 Last Admin: 07/22/17 08:09 Dose: 12.5 mg Methylprednisolone Sodium Succinate (Solu-Medrol) 40 mg IVP Q8HR [facility] Stop: 09/09/17 20:59 Last Admin: 07/22/17 05:13 Dose: 40 mg Miscellaneous (Probiotic Screen) 1 [facility] PRN PRN PRN Reason: PROTOCOL Stop: 09/01/17 08:44 Miscellaneous (Vancomycin Iv Per Pharmacy) 1 [facility] PRN PRN PRN Reason: PROTOCOL Stop: 09/14/17 17:27 Multivitamins/Vitamin C (Theragran) 1 tab PO DAILY [facility] Stop: 08/31/17 08:59 Last Admin: 07/22/17 08:10 Dose: 1 tab Nicotine (Nicotine Transdermal System) 14 mg TD DAILY [facility] Stop: 09/04/17 08:59 Last Admin: 07/22/17 08:10 Dose: 14 mg Pantoprazole Sodium (Protonix) 40 mg IVP BID [facility] Stop: 09/13/17 08:59 Last Admin: 07/22/17 08:08 Dose: 40 mg General: Alert, Other (awake now. NAD) HEENT: Atraumatic, Other (et in place) Neck: Supple, no JVD, no Thyromegaly Cardiovascular: Regular rate, Other (in A fib) Lungs: Other (Intubated, has bl rales) Abdomen: Bowel sounds, Soft, no Tender, no Hepatomegaly Extremities: Edema, no Clubbing Neurological: Other (Pt unable to participate in test) Skin: Other (+2 pitting edema), no Rash Psych/Mental Status: Other (no psychosis) - Procedures Procedures: Procedures Procedure Code Date INSERT EMERGENCY AIRWAY 08755 07/01/17 INSERTION OF ENDOTRACHEAL AIRWAY INTO TRACHEA, VIA OPENING [id number] 07/01/17 RESPIRATORY VENTILATION, GREATER THAN 96 CONSECUTIVE HOURS [id number] 07/01/17 VENT MGMT INPAT INIT DAY 56194 07/01/17 Assessment/Plan - Problem List Patient Problems: All Active Problems WEAKESS AND POOR ORAL INTAKE (Acute) - Assessment Assessment: Septic shock A fib with RVR Fail to thrive Stage 4 lung ca Sepsis due to E Coli UTI ME Ch pain syn Anemia of ch ill Hypernatremia Hypokalemia Type 2 HI A fib - Plan Plan: Pt holds a poor progonosis. Been trying to communicate poor prognosis to the son. He wants "everything done. " Cardio, Pulm, and Heme Onc seeing pt, all of whom agree with comfort care/ hospice. On IV Zosyn and Vanco. Has been on Amiodarone and Levphed drip in ICU-now off as off 07/06/17. Intubated on 07/05/17; extubated on night of 07/19/17 Elec corrected. I's and O's reviewed. Pt holds a poor prognosis. Son still wants everything done. No drips. Pt responsive. Weaning tried on 07/10/17, but could not tolerate it. But ultimately extubated on 07/19/17. Hgb dropping. Holding Xarelto as of 07/11/17. Checked stool OB times 2-both postive. GI on the case. FU on CBC and Chem 7. Again, advised son of the grave prognosis and the fact that pt has poor quality of life and it will not improve. He still wants "everything done." As of 07/18/17, she was on CPAP, then extubated night on 07/19/17. Consider swallow eval tomorrow when she's more alert. GI following for stool OB times 2. However, pt too unstable for procedure per GI. SNF eval. Son doesn't want GT. Swallow eval. Nutritional Asmnt/Malnutr-PDOC - Dietary Evaluation Malnutrition Findings (Please click <Entered> for more info): Nutritional Asmnt/Malnutrition Start: 07/03/17 13: 22 Text: Status: Complete Freq: Document 07/03/17 13:22 MMULN (Rec: 07/03/17 13:35 URBAN ELLER- [email or web address]) Nutritional Asmnt/Malnutrition Patient General Information Nutritional Screening Consult Diagnosis UTI, Failure to thrive, hypokalemia Pertinent Medical Hx/Surgical Hx CAD, HTN, COPD, Stage 4 lung cancer, peripheral neuropathy, constipation, GERD, anxiety, low back pain Subjective Information Consult received for Failure to Thrive. Current Diet Order/ Nutrition Support Regular diet, pureed with mechaical soft Patient / S.O Not Indicated Pertinent Medications Vitamin C, dulcolax, D5-0.45 NS @ 75 ml/hr, colace, iron, folate, lactulose, theragran Pertinent Labs (07/02) P 1.5, Mg 1.7, albumin 2.9 Nutritional Hx/Data Height 1.6 m Height (Calculated Centimeters) 160.0 Current Weight (lbs) 54.885 kg Weight (Calculated Kilograms) 54.9 Weight (Calculated Grams) 30266.7 [place] Body Weight 115 % [place] Body Weight 105 Body Mass Index (BMI) 21.4 Recent Weight Change No Weight Status Approriate GI Symptoms GI Symptoms None Last BM Prior to admission Difficult in: None Food Allergies No Cultural/Ethnic/Restorationist Belief None indicated Skin Integrity/Comment: Pradeep 15 Current %PO Poor (25-49%) Estimated Nutritional Goals BEE in Kcals: Using Current wt Calories/Kcals/Kg 55kg CBW (25-30kcal/kg) Kcals Calculated 9508-4067 kcal/day Protein: Using Current wt Protein g/k-1.2 gm/kg Protein Calculated 55-65 gm/day Fluid: ml 8576-0968 ml/day (1 ml/kcal) Nutritional Problem 2. Problem Problem Inadequate oral intake related to Etiology poor appetite aeb Signs/Symptoms: meeting <75% of estimated nutrient needs 1. Problem Problem Altered nutrition related lab values related to Etiology electrolyte imbalance aeb Signs/Symptoms: P 1.5, Mg 1.7 Intervention/Recommendation Comments 1. Continue pureed diet as tolerated by patient. 2. RN To assist with feedings and encourage oral intake. 3. Consider adding Boost plus between meals to optimize calorie and protein intake. Expected Outcomes/Goals Expected Outcomes/Goals Oral intake to meet >75% of needs, weight stable, nutrition labs WNL F/U MR 07/06-
--- NOTE | 2017-07-22 12:16 | Infectious Disease Prog Note ---
Infectious Disease Subjective - Review of Systems Service Date: 07/22/17 Subjective: There is no new change. Patient remains off vent. Failed swallow eval. Family refused peg placement. Low grade fever. leukocytosis is improving. Infectious Disease Objective - Results Result Diagrams: 07/22/17 04:05 07/22/17 04:05 Recent Labs: Laboratory Last Values WBC 16.5 Th/cmm (4.8-10.8) H 07/22/17 04:05 RBC 2.58 Mil/cmm (3.80-5.20) L 07/22/17 04:05 Hgb 7.7 gm/dL (12-16) L* 07/22/17 04:05 Hct 22.8 % (41.0-60) L 07/22/17 04:05 MCV 88.5 fl (81-100) 07/22/17 04:05 MCH 29.9 pg (27.0-31.0) 07/22/17 04:05 MCHC Differential 33.8 pg (28.0-36.0) 07/22/17 04:05 RDW 15.6 % (11.5-20.0) 07/22/17 04:05 Plt Count 335 Th/cmm (150-400) 07/22/17 04:05 MPV 6.9 fl 07/22/17 04:05 Neutrophils % 92.8 % (40.0-80.0) H 07/20/17 06:00 Band Neutrophils % 2 % (0-10) 07/21/17 04:30 Lymphocytes % 2.5 % (20.0-50.0) L 07/20/17 06:00 Monocytes % 4.2 % (2.0-10.0) 07/20/17 06:00 Eosinophils % 0.3 % (0.0-5.0) 07/20/17 06:00 Basophils % 0.2 % (0.0-2.0) 07/20/17 06:00 Neutrophils (Manual) 95 % (40-80) H 07/22/17 04:05 Lymphocytes 4 % (20-50) L 07/22/17 04:05 Monocytes 1 % (2-10) L 07/22/17 04:05 Eosinophils 0 % (0-5) 07/16/17 04:35 Basophils 0 % (0-3) 07/16/17 04:35 Hypochromia 1+ 07/21/17 04:30 Platelet Estimate ADEQUATE (NORMAL) 07/22/17 04:05 Platelet Morphology NORMAL (NORMAL) 07/16/17 04:35 Polychromasia 1+ 07/14/17 05:00 Ovalocytes 1+ 07/21/17 04:30 RBC Morph Micro Appear NORMAL (NORMAL) 07/16/17 04:35 Specimen Source Arterial 07/19/17 19:14 Sample Site RIGHT BRACHIAL 07/19/17 19:14 pH 7.44 (7.35-7.45) 07/19/17 19:14 pCO2 39.0 mmHg (35.0-45.0) 07/19/17 19:14 pO2 179.0 mmHg (80.0-100.0) H 07/19/17 19:14 HCO3 26.7 mEq/L (20.0-26.0) H 07/19/17 19:14 Base Excess 2.2 mEq/L (-3.0-3.0) 07/19/17 19:14 O2 Saturation 100.0 % (92.0-100.0) 07/19/17 19:14 Darius Test Positive 07/19/17 19:14 Vent Rate NA 07/18/17 10:48 Inspired O2 40 07/19/17 19:14 Tidal Volume NA 07/18/17 10:48 PEEP NA 07/18/17 10:48 Pressure (ins/psv/peep) NA 07/18/17 10:48 Critical Value SC 07/19/17 19:14 Sodium 139 mEq/L (136-145) 07/22/17 04:05 Potassium 4.0 mEq/L (3.5-5.1) 07/22/17 04:05 Chloride 105 mEq/L (98-107) 07/22/17 04:05 Carbon Dioxide 26.7 mEq/L (21.0-31.0) 07/22/17 04:05 Anion Gap 11.3 (7.0-16.0) 07/22/17 04:05 BUN 42 mg/dL (7-25) H 07/22/17 04:05 Creatinine 1.2 mg/dL (0.6-1.2) 07/22/17 04:05 Est GFR ( Amer) TNP 07/22/17 04:05 Est GFR (Non-Af Amer) TNP 07/22/17 04:05 BUN/Creatinine Ratio 35.0 07/22/17 04:05 Glucose 207 mg/dL (70-105) H 07/22/17 04:05 POC Glucose 177 MG/DL (70 - 105) H 07/14/17 11:26 Hemoglobin A1c % 5.2 % (4.0-6.0) 07/17/17 04:33 Whole Bld Lactic Acid 3.99 mmol/L (0.60-1.99) H* 07/05/17 13:00 Calcium 7.4 mg/dL (8.6-10.3) L 07/22/17 04:05 Phosphorus 1.5 mg/dL (2.5-5.0) L 07/02/17 05:20 Magnesium 1.7 mg/dL (1.9-2.7) L 07/02/17 05:20 Iron 21 07/03/17 05:48 TIBC 131 07/03/17 05:48 Iron Saturation 16 07/03/17 05:48 Unsaturated IBC 110 07/03/17 05:48 Ferritin 334 ng/mL (15-150) H 07/03/17 05:48 Total Bilirubin 0.5 mg/dL (0.3-1.0) 07/05/17 06:05 AST 16 U/L (13-39) 07/05/17 06:05 ALT 8 U/L (7-52) 07/05/17 06:05 Alkaline Phosphatase 66 U/L (34-104) 07/05/17 06:05 Troponin I 0.09 ng/mL (0.01-0.05) H* D 07/04/17 05:50 B-Natriuretic Peptide 215.0 pg/mL (5.0-100.0) H 07/01/17 14:10 Total Protein 5.6 gm/dL (6.0-8.3) L 07/05/17 06:05 Albumin 2.6 gm/dL (3.7-5.3) L 07/05/17 06:05 Globulin 3.0 gm/dL 07/05/17 06:05 Albumin/Globulin Ratio 0.9 (1.0-1.8) L 07/05/17 06:05 Triglycerides 107 mg/dL (<150) 07/04/17 05:50 Cholesterol 114 mg/dL (<200) 07/04/17 05:50 LDL Cholesterol Direct 59 mg/dL (75-193) L 07/04/17 05:50 HDL Cholesterol 31 mg/dL (23-92) 07/04/17 05:50 TSH 1.46 uIU/ml (0.34-5.60) 07/04/17 05:50 Urine Source CATH 07/05/17 18:30 Urine Color YELLOW 07/05/17 18:30 Urine Clarity CLOUDY (CLEAR) H 07/05/17 18:30 Urine pH 5.5 (4.6 - 8.0) 07/05/17 18:30 Ur Specific [place] 1.025 (1.005-1.030) 07/05/17 18:30 Urine Protein 30 mg/dL (NEGATIVE) H 07/05/17 18:30 Urine Glucose (UA) NEGATIVE mg/dL (NEGATIVE) 07/05/17 18:30 Urine Ketones TRACE mg/dL (NEGATIVE) 07/05/17 18:30 Urine Blood SMALL (NEGATIVE) H 07/05/17 18:30 Urine Nitrate NEGATIVE (NEGATIVE) 07/05/17 18:30 Urine Bilirubin NEGATIVE (NEGATIVE) 07/05/17 18:30 Urine Urobilinogen 0.2 E.U./dL (0.2 - 1.0) 07/05/17 18:30 Ur Leukocyte Esterase LARGE (NEGATIVE) H 07/05/17 18:30 Urine RBC 2-5 /hpf (0-5) 07/05/17 18:30 Urine WBC >100 /hpf (0-5) H 07/05/17 18:30 Ur Epithelial Cells FEW /lpf (FEW) 07/05/17 18:30 Urine Bacteria FEW /hpf (NONE SEEN) 07/05/17 18:30 Urine Yeast FEW /hpf (NONE SEEN) H 07/05/17 18:30 Stool Occult Blood POSITIVE (NEGATIVE) H 07/13/17 19:00 Vancomycin Trough 23.1 ug/mL (5-10) H 07/22/17 08:00 - Physical Exam Vitals and I&O: Vital Signs Temp 100.4 F 07/22/17 08:00 Pulse 77 07/22/17 11:00 Resp 26 07/22/17 11:00 BP 169/86 07/22/17 11:00 Pulse Ox 100 07/22/17 11:00 Intake & Output 07/21/17 07/22/17 07/22/17 18:59 06:59 18:59 Intake Total 1050 1100 Output Total 1300 1200 Balance -250 -100 Weight (lbs) 71.214 kg 71.214 kg Intake: Intake, IV Amount 100 300 Piperacillin Sodium/ 100 300 Tazobact 2.25 gm In Sodium Chloride 0.9% 100 ml @ 100 mls/hr IV Q6HR [facility] Rx#:[id number] Tube Feeding 600 600 Other 350 200 Output: Urine 1300 1200 Other: # Bowel Movements 0 Weight Source Bedscale Bedscale Active Medications: Current Medications Acetaminophen (Tylenol) 650 mg PO Q4H PRN PRN Reason: Fever > 101 Stop: 08/30/17 22:06 Last Admin: 07/22/17 09:21 Dose: 650 mg Albuterol/Ipratropium (Duoneb Neb) 3 ml HHN Q4HRT PRN PRN Reason: Wheezing Stop: 08/30/17 22:13 Albuterol/Ipratropium (Duoneb Neb) 3 ml HHN Q6HRT [facility] Stop: 08/31/17 00:59 Last Admin: 07/22/17 07:43 Dose: 3 ml Ascorbic Acid (Vitamin C) 500 mg PO DAILY [facility] Stop: 08/31/17 08:59 Last Admin: 07/22/17 08:08 Dose: 500 mg Baclofen (Lioresal) 5 mg PO TID [facility] Stop: 09/06/17 08:59 Last Admin: 07/22/17 08:08 Dose: 5 mg Bisacodyl (Dulcolax 10 Mg Supp) 10 mg RC DAILY PRN PRN Reason: BOWEL CARE MANAGEMENT Stop: 09/20/17 09:14 Budesonide (Pulmicort) 0.5 mg HHN BIDRT [facility] Stop: 08/31/17 18:59 Last Admin: 07/22/17 07:44 Dose: 0.5 mg Cyproheptadine HCl (Periactin) 4 mg PO BID [facility] Stop: 08/31/17 08:59 Last Admin: 07/22/17 08:10 Dose: 4 mg Docusate Sodium (Colace) 100 mg PO BID [facility] Stop: 08/31/17 08:59 Last Admin: 07/22/17 08:08 Dose: 100 mg Ferrous Sulfate (Iron) 325 mg PO BID [facility] Stop: 08/31/17 08:59 Last Admin: 07/22/17 08:10 Dose: 325 mg Folic Acid (Folate) 1 mg PO DAILY [facility] Stop: 08/31/17 08:59 Last Admin: 07/22/17 08:08 Dose: 1 mg Furosemide (Lasix) 20 mg IVP DAILY [facility] Stop: 09/16/17 11:59 Last Admin: 07/22/17 08:08 Dose: 20 mg Dextrose/Sodium Chloride (D5-0.45ns) 1,000 mls @ 75 mls/hr IV .[id number] [facility] Stop: 09/01/17 11:59 Last Admin: 07/20/17 18:19 Dose: 75 mls/hr Norepinephrine Bitartrate 4 mg (/ Sodium Chloride) 254 mls @ 0 mls/hr IV TITR [facility]; Titrate PRN Reason: Protocol Stop: 09/03/17 16:29 Piperacillin Sod/Tazobactam (Sod 2.25 gm/ Sodium Chloride) 100 mls @ 100 mls/ hr IV Q6HR [facility] Stop: 09/14/17 18:44 Last Admin: 07/22/17 11:47 Dose: 100 mls/hr Vancomycin HCl 1 gm/ Sodium (Chloride) 250 mls @ 165 mls/hr IV Q48H [facility] Stop: 09/21/17 07:59 Lactobacillus Rhamnosus (Culturelle 15b) 1 each PO DAILY [facility] Stop: 09/01/17 08:59 Last Admin: 07/22/17 08:08 Dose: 1 each Lactulose (Cephulac) 20 gm PO QID PRN PRN Reason: Constipation Stop: 08/30/17 22:18 Last Admin: 07/17/17 17:50 Dose: 20 gm Lorazepam (Ativan) 1 mg IVP Q4HR PRN; Protocol PRN Reason: Anxiety Stop: 09/04/17 08:31 Last Admin: 07/18/17 21:49 Dose: 1 mg Losartan Potassium (Cozaar) 12.5 mg PO DAILY [facility] Stop: 09/18/17 18:14 Last Admin: 07/22/17 08:09 Dose: 12.5 mg Methylprednisolone Sodium Succinate (Solu-Medrol) 40 mg IVP Q8HR [facility] Stop: 09/09/17 20:59 Last Admin: 07/22/17 12:09 Dose: 40 mg Miscellaneous (Probiotic Screen) 1 ea PRN PRN PRN Reason: PROTOCOL Stop: 09/01/17 08:44 Miscellaneous (Vancomycin Iv Per Pharmacy) 1 ea PRN PRN PRN Reason: PROTOCOL Stop: 09/14/17 17:27 Multivitamins/Vitamin C (Theragran) 1 tab PO DAILY [facility] Stop: 08/31/17 08:59 Last Admin: 07/22/17 08:10 Dose: 1 tab Nicotine (Nicotine Transdermal System) 14 mg TD DAILY [facility] Stop: 09/04/17 08:59 Last Admin: 07/22/17 08:10 Dose: 14 mg Pantoprazole Sodium (Protonix) 40 mg IVP BID [facility] Stop: 09/13/17 08:59 Last Admin: 07/22/17 08:08 Dose: 40 mg General: no acute distress, cachectic HEENT: atraumatic, normocephalic, PERRLA, EOMI, moist mucous membrane Neck: supple, no thyromegaly Cardiovascular: S1S2, regular Lungs: clear to percussion, crackles Abdomen: soft, no tender Extremities: no cyanosis, no clubbing, no edema Neurological: awake, alert - Procedures Procedures: Procedures Procedure Code Date INSERT EMERGENCY AIRWAY 40921 07/01/17 INSERTION OF ENDOTRACHEAL AIRWAY INTO [place]ACHEA, VIA OPENING [id number] 07/01/17 RESPIRATORY VENTILATION, GREATER THAN 96 CONSECUTIVE HOURS [id number] 07/01/17 VENT MGMT INPAT IN DAY 60981 07/01/17 Infectious Disease Assmt/Plan - Problem List Patient Problems: All Active Problems WEAKESS AND POOR ORAL INTAKE (Acute) - Assessment Assessment: 1. Leukocytosis. Fever, sepsis. Improving. 2. Pneumonia. 3. Stage IV lung CA. 4. Protein calorie malnutrion, 5. VDRF. 6. ALTERED MENTAL STATUS. - Plan Plan: Continue zosyn and vacno. Poor prognosis. Nutritional Asmnt/Malnutr-PDOC - Dietary Evaluation Malnutrition Findings (Please click <Entered> for more info): Nutritional Asmnt/Malnutrition Start: 07/03/17 13: 22 Text: Status: Complete Freq: Document 07/03/17 13:22 MMULHERN (Rec: 07/03/17 13:35 URBAN [email or web address]- [email or web address]) Nutritional Asmnt/Malnutrition Patient General Information Nutritional Screening Consult Diagnosis UTI, Failure to thrive, hypokalemia Pertinent Medical Hx/Surgical Hx CAD, HTN, COPD, Stage 4 lung cancer, peripheral neuropathy, constipation, GERD, anxiety, low back pain Subjective Information Consult received for Failure to Thrive. Current Diet Order/ Nutrition Support Regular diet, pureed with mechaical soft Patient / S.O Not Indicated Pertinent Medications Vitamin C, dulcolax, D5-0.45 NS @ 75 ml/hr, colace, iron, folate, lactulose, theragran Pertinent Labs (07/02) P 1.5, Mg 1.7, albumin 2.9 Nutritional Hx/Data Height 1.6 m Height (Calculated Centimeters) 160.0 Current Weight (lbs) 54.885 kg Weight (Calculated Kilograms) 54.9 Weight (Calculated Grams) 68639.7 [place] Body Weight 115 % [place] Body Weight 105 Body Mass Index (BMI) 21.4 Recent Weight Change No Weight Status Approriate GI Symptoms GI Symptoms None Last BM Prior to admission Difficult in: None Food Allergies No Cultural/Ethnic/Taoism Belief None indicated Skin Integrity/Comment: Pradeep Cook Current %PO Poor (25-49%) Estimated Nutritional Goals BEE in Kcals: Using Current wt Calories/Kcals/Kg 55kg CBW (25-30kcal/kg) Kcals Calculated 8753-6570 kcal/day Protein: Using Current wt Protein g/k-1.2 gm/kg Protein Calculated 55-65 gm/day Fluid: ml 1016-0274 ml/day (1 ml/kcal) Nutritional Problem 2. Problem Problem Inadequate oral intake related to Etiology poor appetite aeb Signs/Symptoms: meeting <75% of estimated nutrient needs 1. Problem Problem Altered nutrition related lab values related to Etiology electrolyte imbalance aeb Signs/Symptoms: P 1.5, Mg 1.7 Intervention/Recommendation Comments 1. Continue pureed diet as tolerated by patient. 2. RN To assist with feedings and encourage oral intake. 3. Consider adding Boost plus between meals to optimize calorie and protein intake. Expected Outcomes/Goals Expected Outcomes/Goals Oral intake to meet >75% of needs, weight stable, nutrition labs WNL F/U MR 07/06-
--- NOTE | 2017-07-22 19:16 | General Progress Note ---
Subjective - Review of Systems Service Date: 07/22/17 Subjective: unresponsive, opens eyes off vent. EXTubated, NGT feeding Objective - Results Result Diagrams: 07/22/17 04:05 07/22/17 04:05 Recent Labs: Laboratory Last Values WBC 16.5 Th/cmm (4.8-10.8) H 07/22/17 04:05 RBC 2.58 Mil/cmm (3.80-5.20) L 07/22/17 04:05 Hgb 7.7 gm/dL (12-16) L* 07/22/17 04:05 Hct 22.8 % (41.0-60) L 07/22/17 04:05 MCV 88.5 fl (81-100) 07/22/17 04:05 MCH 29.9 pg (27.0-31.0) 07/22/17 04:05 MCHC Differential 33.8 pg (28.0-36.0) 07/22/17 04:05 RDW 15.6 % (11.5-20.0) 07/22/17 04:05 Plt Count 335 Th/cmm (150-400) 07/22/17 04:05 MPV 6.9 fl 07/22/17 04:05 Neutrophils % 92.8 % (40.0-80.0) H 07/20/17 06:00 Band Neutrophils % 2 % (0-10) 07/21/17 04:30 Lymphocytes % 2.5 % (20.0-50.0) L 07/20/17 06:00 Monocytes % 4.2 % (2.0-10.0) 07/20/17 06:00 Eosinophils % 0.3 % (0.0-5.0) 07/20/17 06:00 Basophils % 0.2 % (0.0-2.0) 07/20/17 06:00 Neutrophils (Manual) 95 % (40-80) H 07/22/17 04:05 Lymphocytes 4 % (20-50) L 07/22/17 04:05 Monocytes 1 % (2-10) L 07/22/17 04:05 Eosinophils 0 % (0-5) 07/16/17 04:35 Basophils 0 % (0-3) 07/16/17 04:35 Hypochromia 1+ 07/21/17 04:30 Platelet Estimate ADEQUATE (NORMAL) 07/22/17 04:05 Platelet Morphology NORMAL (NORMAL) 07/16/17 04:35 Polychromasia 1+ 07/14/17 05:00 Ovalocytes 1+ 07/21/17 04:30 RBC Morph Micro Appear NORMAL (NORMAL) 07/16/17 04:35 Specimen Source Arterial 07/19/17 19:14 Sample Site RIGHT BRACHIAL 07/19/17 19:14 pH 7.44 (7.35-7.45) 07/19/17 19:14 pCO2 39.0 mmHg (35.0-45.0) 07/19/17 19:14 pO2 179.0 mmHg (80.0-100.0) H 07/19/17 19:14 HCO3 26.7 mEq/L (20.0-26.0) H 07/19/17 19:14 Base Excess 2.2 mEq/L (-3.0-3.0) 07/19/17 19:14 O2 Saturation 100.0 % (92.0-100.0) 07/19/17 19:14 Darius Test Positive 07/19/17 19:14 Vent Rate NA 07/18/17 10:48 Inspired O2 40 07/19/17 19:14 Tidal Volume NA 07/18/17 10:48 PEEP NA 07/18/17 10:48 Pressure (ins/psv/peep) NA 07/18/17 10:48 Critical Value SC 07/19/17 19:14 Sodium 139 mEq/L (136-145) 07/22/17 04:05 Potassium 4.0 mEq/L (3.5-5.1) 07/22/17 04:05 Chloride 105 mEq/L (98-107) 07/22/17 04:05 Carbon Dioxide 26.7 mEq/L (21.0-31.0) 07/22/17 04:05 Anion Gap 11.3 (7.0-16.0) 07/22/17 04:05 BUN 42 mg/dL (7-25) H 07/22/17 04:05 Creatinine 1.2 mg/dL (0.6-1.2) 07/22/17 04:05 Est GFR ( Amer) TNP 07/22/17 04:05 Est GFR (Non-Af Amer) TNP 07/22/17 04:05 BUN/Creatinine Ratio 35.0 07/22/17 04:05 Glucose 207 mg/dL (70-105) H 07/22/17 04:05 POC Glucose 177 MG/DL (70 - 105) H 07/14/17 11:26 Hemoglobin A1c % 5.2 % (4.0-6.0) 07/17/17 04:33 Whole Bld Lactic Acid 3.99 mmol/L (0.60-1.99) H* 07/05/17 13:00 Calcium 7.4 mg/dL (8.6-10.3) L 07/22/17 04:05 Phosphorus 1.5 mg/dL (2.5-5.0) L 07/02/17 05:20 Magnesium 1.7 mg/dL (1.9-2.7) L 07/02/17 05:20 Iron 21 07/03/17 05:48 TIBC 131 07/03/17 05:48 Iron Saturation 16 07/03/17 05:48 Unsaturated IBC 110 07/03/17 05:48 Ferritin 334 ng/mL (15-150) H 07/03/17 05:48 Total Bilirubin 0.5 mg/dL (0.3-1.0) 07/05/17 06:05 AST 16 U/L (13-39) 07/05/17 06:05 ALT 8 U/L (7-52) 07/05/17 06:05 Alkaline Phosphatase 66 U/L (34-104) 07/05/17 06:05 Troponin I 0.09 ng/mL (0.01-0.05) H* D 07/04/17 05:50 B-Natriuretic Peptide 215.0 pg/mL (5.0-100.0) H 07/01/17 14:10 Total Protein 5.6 gm/dL (6.0-8.3) L 07/05/17 06:05 Albumin 2.6 gm/dL (3.7-5.3) L 07/05/17 06:05 Globulin 3.0 gm/dL 07/05/17 06:05 Albumin/Globulin Ratio 0.9 (1.0-1.8) L 07/05/17 06:05 Triglycerides 107 mg/dL (<150) 07/04/17 05:50 Cholesterol 114 mg/dL (<200) 07/04/17 05:50 LDL Cholesterol Direct 59 mg/dL (75-193) L 07/04/17 05:50 HDL Cholesterol 31 mg/dL (23-92) 07/04/17 05:50 TSH 1.46 uIU/ml (0.34-5.60) 07/04/17 05:50 Urine Source CATH 07/05/17 18:30 Urine Color YELLOW 07/05/17 18:30 Urine Clarity CLOUDY (CLEAR) H 07/05/17 18:30 Urine pH 5.5 (4.6 - 8.0) 07/05/17 18:30 Ur Specific [place] 1.025 (1.005-1.030) 07/05/17 18:30 Urine Protein 30 mg/dL (NEGATIVE) H 07/05/17 18:30 Urine Glucose (UA) NEGATIVE mg/dL (NEGATIVE) 07/05/17 18:30 Urine Ketones TRACE mg/dL (NEGATIVE) 07/05/17 18:30 Urine Blood SMALL (NEGATIVE) H 07/05/17 18:30 Urine Nitrate NEGATIVE (NEGATIVE) 07/05/17 18:30 Urine Bilirubin NEGATIVE (NEGATIVE) 07/05/17 18:30 Urine Urobilinogen 0.2 E.U./dL (0.2 - 1.0) 07/05/17 18:30 Ur Leukocyte Esterase LARGE (NEGATIVE) H 07/05/17 18:30 Urine RBC 2-5 /hpf (0-5) 07/05/17 18:30 Urine WBC >100 /hpf (0-5) H 07/05/17 18:30 Ur Epithelial Cells FEW /lpf (FEW) 07/05/17 18:30 Urine Bacteria FEW /hpf (NONE SEEN) 07/05/17 18:30 Urine Yeast FEW /hpf (NONE SEEN) H 07/05/17 18:30 Stool Occult Blood POSITIVE (NEGATIVE) H 07/13/17 19:00 Vancomycin Trough 23.1 ug/mL (5-10) H 07/22/17 08:00 - Physical Exam Vitals and I&O: Vital Signs Temp 99 F 07/22/17 12:00 Pulse 83 07/22/17 19:05 Resp 18 07/22/17 19:05 BP 145/69 07/22/17 14:22 Pulse Ox 100 07/22/17 19:05 Intake & Output 07/22/17 07/22/17 07/23/17 06:59 18:59 06:59 Intake Total 1100 1050 Output Total 1200 2330 Balance -100 -1280 Weight (lbs) 71.214 kg 68.492 kg Intake: Intake, IV Amount 300 200 Piperacillin Sodium/ 300 200 Tazobact 2.25 gm In Sodium Chloride 0.9% 100 ml @ 100 mls/hr IV Q6HR [facility] Rx#:[id number] Tube Feeding 600 600 Other 200 250 Output: Urine 1200 1880 Stool 450 Other: # Bowel Movements 0 1 Stool Characteristics Soft Brown Weight Source Bedscale Bedscale Active Medications: Current Medications Acetaminophen (Tylenol) 650 mg PO Q4H PRN PRN Reason: Fever > 101 Stop: 08/30/17 22:06 Last Admin: 07/22/17 09:21 Dose: 650 mg Albuterol/Ipratropium (Duoneb Neb) 3 ml HHN Q4HRT PRN PRN Reason: Wheezing Stop: 08/30/17 22:13 Last Admin: 07/22/17 18:56 Dose: 3 ml Albuterol/Ipratropium (Duoneb Neb) 3 ml HHN Q6HRT [facility] Stop: 08/31/17 00:59 Last Admin: 07/22/17 13:20 Dose: 3 ml Ascorbic Acid (Vitamin C) 500 mg PO DAILY [facility] Stop: 08/31/17 08:59 Last Admin: 07/22/17 08:08 Dose: 500 mg Baclofen (Lioresal) 5 mg PO TID [facility] Stop: 09/06/17 08:59 Last Admin: 07/22/17 13:54 Dose: 5 mg Bisacodyl (Dulcolax 10 Mg Supp) 10 mg RC DAILY PRN PRN Reason: BOWEL CARE MANAGEMENT Stop: 09/20/17 09:14 Budesonide (Pulmicort) 0.5 mg HHN BIDRT [facility] Stop: 08/31/17 18:59 Last Admin: 07/22/17 18:57 Dose: 0.5 mg Cyproheptadine HCl (Periactin) 4 mg PO BID [facility] Stop: 08/31/17 08:59 Last Admin: 07/22/17 16:06 Dose: 4 mg Docusate Sodium (Colace) 100 mg PO BID [facility] Stop: 08/31/17 08:59 Last Admin: 07/22/17 16:06 Dose: 100 mg Ferrous Sulfate (Iron) 325 mg PO BID [facility] Stop: 08/31/17 08:59 Last Admin: 07/22/17 16:06 Dose: 325 mg Folic Acid (Folate) 1 mg PO DAILY [facility] Stop: 08/31/17 08:59 Last Admin: 07/22/17 08:08 Dose: 1 mg Furosemide (Lasix) 20 mg IVP DAILY [facility] Stop: 09/16/17 11:59 Last Admin: 07/22/17 08:08 Dose: 20 mg Dextrose/Sodium Chloride (D5-0.45ns) 1,000 mls @ 75 mls/hr IV .[id number] [facility] Stop: 09/01/17 11:59 Last Admin: 07/20/17 18:19 Dose: 75 mls/hr Norepinephrine Bitartrate 4 mg (/ Sodium Chloride) 254 mls @ 0 mls/hr IV TITR [facility]; Titrate PRN Reason: Protocol Stop: 09/03/17 16:29 Piperacillin Sod/Tazobactam (Sod 2.25 gm/ Sodium Chloride) 100 mls @ 100 mls/ hr IV Q6HR [facility] Stop: 09/14/17 18:44 Last Infusion: 07/22/17 18:38 Dose: Infused Vancomycin HCl 1 gm/ Sodium (Chloride) 250 mls @ 165 mls/hr IV Q48H [facility] Stop: 09/21/17 07:59 Lactobacillus Rhamnosus (Culturelle 15b) 1 each PO DAILY [facility] Stop: 09/01/17 08:59 Last Admin: 07/22/17 08:08 Dose: 1 each Lactulose (Cephulac) 20 gm PO QID PRN PRN Reason: Constipation Stop: 08/30/17 22:18 Last Admin: 07/17/17 17:50 Dose: 20 gm Lorazepam (Ativan) 1 mg IVP Q4HR PRN; Protocol PRN Reason: Anxiety Stop: 09/04/17 08:31 Last Admin: 07/18/17 21:49 Dose: 1 mg Losartan Potassium (Cozaar) 12.5 mg PO DAILY [facility] Stop: 09/18/17 18:14 Last Admin: 07/22/17 08:09 Dose: 12.5 mg Methylprednisolone Sodium Succinate (Solu-Medrol) 40 mg IVP Q8HR [facility] Stop: 09/09/17 20:59 Last Admin: 07/22/17 12:09 Dose: 40 mg Miscellaneous (Probiotic Screen) 1 ea PRN PRN PRN Reason: PROTOCOL Stop: 09/01/17 08:44 Miscellaneous (Vancomycin Iv Per Pharmacy) 1 ea MC PRN PRN PRN Reason: PROTOCOL Stop: 09/14/17 17:27 Multivitamins/Vitamin C (Theragran) 1 tab PO DAILY [facility] Stop: 08/31/17 08:59 Last Admin: 07/22/17 08:10 Dose: 1 tab Nicotine (Nicotine Transdermal System) 14 mg TD DAILY [facility] Stop: 09/04/17 08:59 Last Admin: 07/22/17 08:10 Dose: 14 mg Pantoprazole Sodium (Protonix) 40 mg IVP BID [facility] Stop: 09/13/17 08:59 Last Admin: 07/22/17 16:06 Dose: 40 mg General: Alert, Other (awake now. NAD) HEENT: Atraumatic, Other Neck: Supple, no JVD, no Thyromegaly Cardiovascular: Regular rate, Other (in A fib) Lungs: Other Abdomen: Bowel sounds, Soft, no Tender, no Hepatomegaly Extremities: Edema, no Clubbing Neurological: Other (Pt unable to participate in test) Skin: Other (+2 pitting edema), no Rash Psych/Mental Status: Other (no psychosis) - Procedures Procedures: Procedures Procedure Code Date INSERT EMERGENCY AIRWAY 80045 07/01/17 INSERTION OF ENDOTRACHEAL AIRWAY INTO TRACHEA, VIA OPENING [id number] 07/01/17 RESPIRATORY VENTILATION, GREATER THAN 96 CONSECUTIVE HOURS [id number] 07/01/17 VENT MGMT INPAT INIT DAY 65547 07/01/17 Assessment/Plan - Problem List Patient Problems: All Active Problems WEAKESS AND POOR ORAL INTAKE (Acute) - Assessment Assessment: * Advanced metastatic cancer * poor functional status * Anemia likely of chronic disease * Respiratory failure s/p intubation 07/05 off cpap, 07/19 back on vent. 07/20 extubated iron studies cw anemia of chronic disease. hgb better today without transfusion monitor hgb and transfuse for < 7.5 swallow evaluation very Poor prognosis Nutritional Asmnt/Malnutr-PDOC - Dietary Evaluation Malnutrition Findings (Please click <Entered> for more info): Nutritional Asmnt/Malnutrition Start: 07/03/17 13: 22 Text: Status: Complete Freq: Document 07/03/17 13:22 URBAN (Rec: 07/03/17 13:35 URBAN ELLER- [email or web address]) Nutritional Asmnt/Malnutrition Patient General Information Nutritional Screening Consult Diagnosis UTI, Failure to thrive, hypokalemia Pertinent Medical Hx/Surgical Hx CAD, HTN, COPD, Stage 4 lung cancer, peripheral neuropathy, constipation, GERD, anxiety, low back pain Subjective Information Consult received for Failure to Thrive. Current Diet Order/ Nutrition Support Regular diet, pureed with mechaical soft Patient / S.O Not Indicated Pertinent Medications Vitamin C, dulcolax, D5-0.45 NS @ 75 ml/hr, colace, iron, folate, lactulose, theragran Pertinent Labs (07/02) P 1.5, Mg 1.7, albumin 2.9 Nutritional Hx/Data Height 1.6 m Height (Calculated Centimeters) 160.0 Current Weight (lbs) 54.885 kg Weight (Calculated Kilograms) 54.9 Weight (Calculated Grams) 29497.7 [place] Body Weight 115 % [place] Body Weight 105 Body Mass Index (BMI) 21.4 Recent Weight Change No Weight Status Approriate GI Symptoms GI Symptoms None Last BM Prior to admission Difficult in: None Food Allergies No Cultural/Ethnic/Caodaism Belief None indicated Skin Integrity/Comment: Pradeep 15 Current %PO Poor (25-49%) Estimated Nutritional Goals BEE in Kcals: Using Current wt Calories/Kcals/Kg 55kg CBW (25-30kcal/kg) Kcals Calculated 8961-3392 kcal/day Protein: Using Current wt Protein g/k-1.2 gm/kg Protein Calculated 55-65 gm/day Fluid: ml 7365-4915 ml/day (1 ml/kcal) Nutritional Problem 2. Problem Problem Inadequate oral intake related to Etiology poor appetite aeb Signs/Symptoms: meeting <75% of estimated nutrient needs 1. Problem Problem Altered nutrition related lab values related to Etiology electrolyte imbalance aeb Signs/Symptoms: P 1.5, Mg 1.7 Intervention/Recommendation Comments 1. Continue pureed diet as tolerated by patient. 2. RN To assist with feedings and encourage oral intake. 3. Consider adding Boost plus between meals to optimize calorie and protein intake. Expected Outcomes/Goals Expected Outcomes/Goals Oral intake to meet >75% of needs, weight stable, nutrition labs WNL F/U MR 07/06-
[2017-07-22] MEDS: D5-0.45NS 1,000 ML IV SCH (22:26)
[2017-07-23] MEDS: Albuterol/Ipratropium Neb 3 ML AERS HHN SCH ×4 (01:47→19:08)
[2017-07-23] MEDS: methylPREDNISolone SS 40 mg Vial IVP SCH ×3 (04:50→20:42)
[2017-07-23] MEDS: Piperacillin Sodium/Tazobact 2.25 GM in Sodium Chloride 0.9% 100 ML IV SCH ×3 (05:36→17:00)
[2017-07-23] MEDS: Budesonide 0.5 Mg/2 mL Ud HHN SCH ×2 (08:08→19:08)
--- NOTE | 2017-07-23 08:47 | Diagnostic Imaging Report ---
Portable chest x-ray HISTORY: Shortness of breath The patient is rotated. The overall heart size appears normal. Accentuation of the lower interstitial lung markings. However, no definite focal processes are seen. Slight density noted about the right costophrenic angle. A small pleural effusion cannot be excluded. Nasogastric tube extends below the diaphragm. IMPRESSION: 1. Questionable small right pleural effusion 2. No definite focal pulmonary parenchymal processes
[2017-07-23] MEDS: Nicotine 14 mg/24 hr Tdm TD SCH (08:48)
[2017-07-23] MEDS: Ferrous Sulfate 325 MG TAB PO SCH ×2 (08:49→16:27)
[2017-07-23] MEDS: Multivitamin Tab PO SCH (08:49)
[2017-07-23] MEDS: Lactobacillus Rhamnosus GG 15 Billion CFU CAP.SPRINK PO SCH (08:49)
--- NOTE | 2017-07-23 09:11 | General Progress Note ---
Subjective - Review of Systems Service Date: 07/23/17 Subjective: Pt seen and eval. In bed. Seen by jayson, pulrenaldo, and heme onc, all of whom agree with hospice care. Dr. Montanez also discussed poor prog with son. No fevers or chills. WBC elevated, but improving. No falls. Pt went into A fib pm 07/04/16, and was transferred to ICU on digoxin. Intubated on 07/05/17. Was on Amiodarone and Levophed drip, both of which are off as of 07/06/17. She had large bm night of 07/10/17. Pt was extubated night of 07/19/17. On nasal cannula O2 at 2 L now. Awake, but very weak. Son does not want GT. However, she failed swallow eval on 07/22/17. Will talk to son again re GT. She's tele status now. More awake today. Objective - Results Result Diagrams: 07/22/17 04:05 07/22/17 04:05 Recent Labs: Laboratory Last Values WBC 16.5 Th/cmm (4.8-10.8) H 07/22/17 04:05 RBC 2.58 Mil/cmm (3.80-5.20) L 07/22/17 04:05 Hgb 7.7 gm/dL (12-16) L* 07/22/17 04:05 Hct 22.8 % (41.0-60) L 07/22/17 04:05 MCV 88.5 fl (81-100) 07/22/17 04:05 MCH 29.9 pg (27.0-31.0) 07/22/17 04:05 MCHC Differential 33.8 pg (28.0-36.0) 07/22/17 04:05 RDW 15.6 % (11.5-20.0) 07/22/17 04:05 Plt Count 335 Th/cmm (150-400) 07/22/17 04:05 MPV 6.9 fl 07/22/17 04:05 Neutrophils % 92.8 % (40.0-80.0) H 07/20/17 06:00 Band Neutrophils % 2 % (0-10) 07/21/17 04:30 Lymphocytes % 2.5 % (20.0-50.0) L 07/20/17 06:00 Monocytes % 4.2 % (2.0-10.0) 07/20/17 06:00 Eosinophils % 0.3 % (0.0-5.0) 07/20/17 06:00 Basophils % 0.2 % (0.0-2.0) 07/20/17 06:00 Neutrophils (Manual) 95 % (40-80) H 07/22/17 04:05 Lymphocytes 4 % (20-50) L 07/22/17 04:05 Monocytes 1 % (2-10) L 07/22/17 04:05 Eosinophils 0 % (0-5) 07/16/17 04:35 Basophils 0 % (0-3) 07/16/17 04:35 Hypochromia 1+ 07/21/17 04:30 Platelet Estimate ADEQUATE (NORMAL) 07/22/17 04:05 Platelet Morphology NORMAL (NORMAL) 07/16/17 04:35 Polychromasia 1+ 07/14/17 05:00 Ovalocytes 1+ 07/21/17 04:30 RBC Morph Micro Appear NORMAL (NORMAL) 07/16/17 04:35 Specimen Source Arterial 07/19/17 19:14 Sample Site RIGHT BRACHIAL 07/19/17 19:14 pH 7.44 (7.35-7.45) 07/19/17 19:14 pCO2 39.0 mmHg (35.0-45.0) 07/19/17 19:14 pO2 179.0 mmHg (80.0-100.0) H 07/19/17 19:14 HCO3 26.7 mEq/L (20.0-26.0) H 07/19/17 19:14 Base Excess 2.2 mEq/L (-3.0-3.0) 07/19/17 19:14 O2 Saturation 100.0 % (92.0-100.0) 07/19/17 19:14 Darius Test Positive 07/19/17 19:14 Vent Rate NA 07/18/17 10:48 Inspired O2 40 07/19/17 19:14 Tidal Volume NA 07/18/17 10:48 PEEP NA 07/18/17 10:48 Pressure (ins/psv/peep) NA 07/18/17 10:48 Critical Value SC 07/19/17 19:14 Sodium 139 mEq/L (136-145) 07/22/17 04:05 Potassium 4.0 mEq/L (3.5-5.1) 07/22/17 04:05 Chloride 105 mEq/L (98-107) 07/22/17 04:05 Carbon Dioxide 26.7 mEq/L (21.0-31.0) 07/22/17 04:05 Anion Gap 11.3 (7.0-16.0) 07/22/17 04:05 BUN 42 mg/dL (7-25) H 07/22/17 04:05 Creatinine 1.2 mg/dL (0.6-1.2) 07/22/17 04:05 Est GFR ( Amer) TNP 07/22/17 04:05 Est GFR (Non-Af Amer) TNP 07/22/17 04:05 BUN/Creatinine Ratio 35.0 07/22/17 04:05 Glucose 207 mg/dL (70-105) H 07/22/17 04:05 POC Glucose 177 MG/DL (70 - 105) H 07/14/17 11:26 Hemoglobin A1c % 5.2 % (4.0-6.0) 07/17/17 04:33 Whole Bld Lactic Acid 3.99 mmol/L (0.60-1.99) H* 07/05/17 13:00 Calcium 7.4 mg/dL (8.6-10.3) L 07/22/17 04:05 Phosphorus 1.5 mg/dL (2.5-5.0) L 07/02/17 05:20 Magnesium 1.7 mg/dL (1.9-2.7) L 07/02/17 05:20 Iron 21 07/03/17 05:48 TIBC 131 07/03/17 05:48 Iron Saturation 16 07/03/17 05:48 Unsaturated IBC 110 07/03/17 05:48 Ferritin 334 ng/mL (15-150) H 07/03/17 05:48 Total Bilirubin 0.5 mg/dL (0.3-1.0) 07/05/17 06:05 AST 16 U/L (13-39) 07/05/17 06:05 ALT 8 U/L (7-52) 07/05/17 06:05 Alkaline Phosphatase 66 U/L (34-104) 07/05/17 06:05 Troponin I 0.09 ng/mL (0.01-0.05) H* D 07/04/17 05:50 B-Natriuretic Peptide 215.0 pg/mL (5.0-100.0) H 07/01/17 14:10 Total Protein 5.6 gm/dL (6.0-8.3) L 07/05/17 06:05 Albumin 2.6 gm/dL (3.7-5.3) L 07/05/17 06:05 Globulin 3.0 gm/dL 07/05/17 06:05 Albumin/Globulin Ratio 0.9 (1.0-1.8) L 07/05/17 06:05 Triglycerides 107 mg/dL (<150) 07/04/17 05:50 Cholesterol 114 mg/dL (<200) 07/04/17 05:50 LDL Cholesterol Direct 59 mg/dL (75-193) L 07/04/17 05:50 HDL Cholesterol 31 mg/dL (23-92) 07/04/17 05:50 TSH 1.46 uIU/ml (0.34-5.60) 07/04/17 05:50 Urine Source CATH 07/05/17 18:30 Urine Color YELLOW 07/05/17 18:30 Urine Clarity CLOUDY (CLEAR) H 07/05/17 18:30 Urine pH 5.5 (4.6 - 8.0) 07/05/17 18:30 Ur Specific [place] 1.025 (1.005-1.030) 07/05/17 18:30 Urine Protein 30 mg/dL (NEGATIVE) H 07/05/17 18:30 Urine Glucose (UA) NEGATIVE mg/dL (NEGATIVE) 07/05/17 18:30 Urine Ketones TRACE mg/dL (NEGATIVE) 07/05/17 18:30 Urine Blood SMALL (NEGATIVE) H 07/05/17 18:30 Urine Nitrate NEGATIVE (NEGATIVE) 07/05/17 18:30 Urine Bilirubin NEGATIVE (NEGATIVE) 07/05/17 18:30 Urine Urobilinogen 0.2 E.U./dL (0.2 - 1.0) 07/05/17 18:30 Ur Leukocyte Esterase LARGE (NEGATIVE) H 07/05/17 18:30 Urine RBC 2-5 /hpf (0-5) 07/05/17 18:30 Urine WBC >100 /hpf (0-5) H 07/05/17 18:30 Ur Epithelial Cells FEW /lpf (FEW) 07/05/17 18:30 Urine Bacteria FEW /hpf (NONE SEEN) 07/05/17 18:30 Urine Yeast FEW /hpf (NONE SEEN) H 07/05/17 18:30 Stool Occult Blood POSITIVE (NEGATIVE) H 07/13/17 19:00 Vancomycin Trough 23.1 ug/mL (5-10) H 07/22/17 08:00 - Physical Exam Vitals and I&O: Vital Signs Temp 98.8 F 07/23/17 04:00 Pulse 85 07/23/17 08:50 Resp 23 07/23/17 08:12 BP 164/66 07/23/17 08:50 Pulse Ox 100 07/23/17 08:10 Intake & Output 07/22/17 07/23/17 07/23/17 18:59 06:59 18:59 Intake Total 1050 900 Output Total 2330 1050 Balance -1280 -150 Weight (lbs) 68.492 kg 71.804 kg Intake: Intake, IV Amount 200 100 Piperacillin Sodium/ 200 100 Tazobact 2.25 gm In Sodium Chloride 0.9% 100 ml @ 100 mls/hr IV Q6HR COUNT INCLUDES THE [facility] Rx#:[id number] Tube Feeding 600 600 Other 250 200 Output: Urine 1880 1050 Stool 450 Other: # Bowel Movements 1 0 Stool Characteristics Soft Brown Weight Source Bedscale Bedscale Active Medications: Current Medications Acetaminophen (Tylenol) 650 mg PO Q4H PRN PRN Reason: Fever > 101 Stop: 08/30/17 22:06 Last Admin: 07/22/17 09:21 Dose: 650 mg Albuterol/Ipratropium (Duoneb Neb) 3 ml HHN Q4HRT PRN PRN Reason: Wheezing Stop: 08/30/17 22:13 Last Admin: 07/22/17 18:56 Dose: 3 ml Albuterol/Ipratropium (Duoneb Neb) 3 ml HHN Q6HRT COUNT INCLUDES THE [facility] Stop: 08/31/17 00:59 Last Admin: 07/23/17 08:08 Dose: 3 ml Ascorbic Acid (Vitamin C) 500 mg PO DAILY COUNT INCLUDES THE [facility] Stop: 08/31/17 08:59 Last Admin: 07/23/17 08:49 Dose: 500 mg Baclofen (Lioresal) 5 mg PO TID COUNT INCLUDES THE [facility] Stop: 09/06/17 08:59 Last Admin: 07/23/17 08:49 Dose: 5 mg Bisacodyl (Dulcolax 10 Mg Supp) 10 mg RC DAILY PRN PRN Reason: BOWEL CARE MANAGEMENT Stop: 09/20/17 09:14 Budesonide (Pulmicort) 0.5 mg HHN BIDRT COUNT INCLUDES THE [facility] Stop: 08/31/17 18:59 Last Admin: 07/23/17 08:08 Dose: 0.5 mg Cyproheptadine HCl (Periactin) 4 mg PO BID COUNT INCLUDES THE [facility] Stop: 08/31/17 08:59 Last Admin: 07/22/17 16:06 Dose: 4 mg Docusate Sodium (Colace) 100 mg PO BID COUNT INCLUDES THE [facility] Stop: 08/31/17 08:59 Last Admin: 07/23/17 08:49 Dose: 100 mg Ferrous Sulfate (Iron) 325 mg PO BID COUNT INCLUDES THE [facility] Stop: 08/31/17 08:59 Last Admin: 07/23/17 08:49 Dose: 325 mg Folic Acid (Folate) 1 mg PO DAILY COUNT INCLUDES THE [facility] Stop: 08/31/17 08:59 Last Admin: 07/23/17 08:49 Dose: 1 mg Furosemide (Lasix) 20 mg IVP DAILY COUNT INCLUDES THE [facility] Stop: 09/16/17 11:59 Last Admin: 07/23/17 08:49 Dose: 20 mg Dextrose/Sodium Chloride (D5-0.45ns) 1,000 mls @ 75 mls/hr IV .[id number] COUNT INCLUDES THE [facility] Stop: 09/01/17 11:59 Last Admin: 07/22/17 22:26 Dose: 75 mls/hr Norepinephrine Bitartrate 4 mg (/ Sodium Chloride) 254 mls @ 0 mls/hr IV TITR SHADI; Titrate PRN Reason: Protocol Stop: 09/03/17 16:29 Piperacillin Sod/Tazobactam (Sod 2.25 gm/ Sodium Chloride) 100 mls @ 100 mls/ hr IV Q6HR COUNT INCLUDES THE [facility] Stop: 09/14/17 18:44 Last Admin: 07/23/17 05:36 Dose: 100 mls/hr Vancomycin HCl 1 gm/ Sodium (Chloride) 250 mls @ 165 mls/hr IV 0900 SHADI Stop: 07/23/17 12:00 Last Admin: 07/23/17 08:48 Dose: 165 mls/hr Lactobacillus Rhamnosus (Culturelle 15b) 1 each PO DAILY SHADI Stop: 09/01/17 08:59 Last Admin: 07/23/17 08:49 Dose: 1 each Lactulose (Cephulac) 20 gm PO QID PRN PRN Reason: Constipation Stop: 08/30/17 22:18 Last Admin: 07/17/17 17:50 Dose: 20 gm Lorazepam (Ativan) 1 mg IVP Q4HR PRN; Protocol PRN Reason: Anxiety Stop: 09/04/17 08:31 Last Admin: 07/18/17 21:49 Dose: 1 mg Losartan Potassium (Cozaar) 12.5 mg PO DAILY SHADI Stop: 09/18/17 18:14 Last Admin: 07/23/17 08:50 Dose: 12.5 mg Methylprednisolone Sodium Succinate (Solu-Medrol) 40 mg IVP Q8HR SHADI Stop: 09/09/17 20:59 Last Admin: 07/23/17 04:50 Dose: 40 mg Miscellaneous (Probiotic Screen) 1 ea PRN PRN PRN Reason: PROTOCOL Stop: 09/01/17 08:44 Miscellaneous (Vancomycin Iv Per Pharmacy) 1 ea PRN PRN PRN Reason: PROTOCOL Stop: 09/14/17 17:27 Multivitamins/Vitamin C (Theragran) 1 tab PO DAILY SHADI Stop: 08/31/17 08:59 Last Admin: 07/23/17 08:49 Dose: 1 tab Nicotine (Nicotine Transdermal System) 14 mg TD DAILY SHADI Stop: 09/04/17 08:59 Last Admin: 07/23/17 08:48 Dose: 14 mg Pantoprazole Sodium (Protonix) 40 mg IVP BID SHADI Stop: 09/13/17 08:59 Last Admin: 07/23/17 08:49 Dose: 40 mg General: Alert, Cooperative, Other (awake now. NAD) HEENT: Atraumatic, Other Neck: Supple, no JVD, no Thyromegaly Cardiovascular: Regular rate, Other (in A fib) Lungs: Other Abdomen: Bowel sounds, Soft, no Tender, no Hepatomegaly Extremities: Edema, no Clubbing Neurological: Other (Pt unable to participate in test) Skin: Other (+2 pitting edema), no Rash Psych/Mental Status: Other (no psychosis) - Procedures Procedures: Procedures Procedure Code Date INSERT EMERGENCY AIRWAY 34247 07/01/17 INSERTION OF ENDOTRACHEAL AIRWAY INTO TRACHEA, VIA OPENING [id number] 07/01/17 RESPIRATORY VENTILATION, GREATER THAN 96 CONSECUTIVE HOURS [id number] 07/01/17 VENT MGMT INPAT INIT DAY 39514 07/01/17 Assessment/Plan - Problem List Patient Problems: All Active Problems WEAKESS AND POOR ORAL INTAKE (Acute) - Assessment Assessment: Septic shock A fib with RVR Fail to thrive Stage 4 lung ca Sepsis due to E Coli UTI ME Ch pain syn Anemia of ch ill Hypernatremia Hypokalemia Type 2 DC A fib - Plan Plan: Pt holds a poor progonosis. Been trying to communicate poor prognosis to the son. He wants "everything done. " Cardio, Pulm, and Heme Onc seeing pt, all of whom agree with comfort care/ hospice. On IV Zosyn and Vanco. Has been on Amiodarone and Levphed drip in ICU-now off as off 07/06/17. Intubated on 07/05/17; extubated on night of 07/19/17 Elec corrected. I's and O's reviewed. Pt holds a poor prognosis. Son still wants everything done. No drips. Pt responsive. Weaning tried on 07/10/17, but could not tolerate it. But ultimately extubated on 07/19/17. Hgb dropping. Holding Xarelto as of 07/11/17. Checked stool OB times 2-both postive. GI on the case. FU on CBC and Chem 7. Again, advised son of the grave prognosis and the fact that pt has poor quality of life and it will not improve. He still wants "everything done." As of 07/18/17, she was on CPAP, then extubated night on 07/19/17. Consider swallow eval tomorrow when she's more alert. GI following for stool OB times 2. However, pt too unstable for procedure per GI. SNF eval. Son doesn't want GT. Pt failed swallow eval on 07/22/17. She's now tele status. Nutritional Asmnt/Malnutr-PDOC - Dietary Evaluation Malnutrition Findings (Please click <Entered> for more info): Nutritional Asmnt/Malnutrition Start: 07/03/17 13: 22 Text: Status: Complete Freq: Document 07/03/17 13:22 URBAN (Rec: 07/03/17 13:35 URBAN [id number]) Nutritional Asmnt/Malnutrition Patient General Information Nutritional Screening Consult Diagnosis UTI, Failure to thrive, hypokalemia Pertinent Medical Hx/Surgical Hx CAD, HTN, COPD, Stage 4 lung cancer, peripheral neuropathy, constipation, GERD, anxiety, low back pain Subjective Information Consult received for Failure to Thrive. Current Diet Order/ Nutrition Support Regular diet, pureed with mechaical soft Patient / S.O Not Indicated Pertinent Medications Vitamin C, dulcolax, D5-0.45 NS @ 75 ml/hr, colace, iron, folate, lactulose, theragran Pertinent Labs (07/02) P 1.5, Mg 1.7, albumin 2.9 Nutritional Hx/Data Height 1.6 m Height (Calculated Centimeters) 160.0 Current Weight (lbs) 54.885 kg Weight (Calculated Kilograms) 54.9 Weight (Calculated Grams) 07527.7 [place] Body Weight 115 % [place] Body Weight 105 Body Mass Index (BMI) 21.4 Recent Weight Change No Weight Status Approriate GI Symptoms GI Symptoms None Last BM Prior to admission Difficult in: None Food Allergies No Cultural/Ethnic/Congregation Belief None indicated Skin Integrity/Comment: Pradeep 15 Current %PO Poor (25-49%) Estimated Nutritional Goals BEE in Kcals: Using Current wt Calories/Kcals/Kg 55kg CBW (25-30kcal/kg) Kcals Calculated 7919-3504 kcal/day Protein: Using Current wt Protein g/k-1.2 gm/kg Protein Calculated 55-65 gm/day Fluid: ml 7162-0385 ml/day (1 ml/kcal) Nutritional Problem 2. Problem Problem Inadequate oral intake related to Etiology poor appetite aeb Signs/Symptoms: meeting <75% of estimated nutrient needs 1. Problem Problem Altered nutrition related lab values related to Etiology electrolyte imbalance aeb Signs/Symptoms: P 1.5, Mg 1.7 Intervention/Recommendation Comments 1. Continue pureed diet as tolerated by patient. 2. RN To assist with feedings and encourage oral intake. 3. Consider adding Boost plus between meals to optimize calorie and protein intake. Expected Outcomes/Goals Expected Outcomes/Goals Oral intake to meet >75% of needs, weight stable, nutrition labs WNL F/U MR 07/06-
[2017-07-23] MEDS: Cyproheptadine 4 mg Tab PO SCH ×2 (10:16→16:58)
[2017-07-23] MEDS ORDERED: D5-0.45NS 1,000 ML IV SCH (10:39)
--- NOTE | 2017-07-23 13:14 | General Progress Note ---
Subjective - Review of Systems Service Date: 07/23/17 Subjective: unresponsive, opens eyes off vent. EXTubated, NGT feeding Objective - Results Result Diagrams: 07/22/17 04:05 07/22/17 04:05 Recent Labs: Laboratory Last Values WBC 16.5 Th/cmm (4.8-10.8) H 07/22/17 04:05 RBC 2.58 Mil/cmm (3.80-5.20) L 07/22/17 04:05 Hgb 7.7 gm/dL (12-16) L* 07/22/17 04:05 Hct 22.8 % (41.0-60) L 07/22/17 04:05 MCV 88.5 fl (81-100) 07/22/17 04:05 MCH 29.9 pg (27.0-31.0) 07/22/17 04:05 MCHC Differential 33.8 pg (28.0-36.0) 07/22/17 04:05 RDW 15.6 % (11.5-20.0) 07/22/17 04:05 Plt Count 335 Th/cmm (150-400) 07/22/17 04:05 MPV 6.9 fl 07/22/17 04:05 Neutrophils % 92.8 % (40.0-80.0) H 07/20/17 06:00 Band Neutrophils % 2 % (0-10) 07/21/17 04:30 Lymphocytes % 2.5 % (20.0-50.0) L 07/20/17 06:00 Monocytes % 4.2 % (2.0-10.0) 07/20/17 06:00 Eosinophils % 0.3 % (0.0-5.0) 07/20/17 06:00 Basophils % 0.2 % (0.0-2.0) 07/20/17 06:00 Neutrophils (Manual) 95 % (40-80) H 07/22/17 04:05 Lymphocytes 4 % (20-50) L 07/22/17 04:05 Monocytes 1 % (2-10) L 07/22/17 04:05 Eosinophils 0 % (0-5) 07/16/17 04:35 Basophils 0 % (0-3) 07/16/17 04:35 Hypochromia 1+ 07/21/17 04:30 Platelet Estimate ADEQUATE (NORMAL) 07/22/17 04:05 Platelet Morphology NORMAL (NORMAL) 07/16/17 04:35 Polychromasia 1+ 07/14/17 05:00 Ovalocytes 1+ 07/21/17 04:30 RBC Morph Micro Appear NORMAL (NORMAL) 07/16/17 04:35 Specimen Source Arterial 07/19/17 19:14 Sample Site RIGHT BRACHIAL 07/19/17 19:14 pH 7.44 (7.35-7.45) 07/19/17 19:14 pCO2 39.0 mmHg (35.0-45.0) 07/19/17 19:14 pO2 179.0 mmHg (80.0-100.0) H 07/19/17 19:14 HCO3 26.7 mEq/L (20.0-26.0) H 07/19/17 19:14 Base Excess 2.2 mEq/L (-3.0-3.0) 07/19/17 19:14 O2 Saturation 100.0 % (92.0-100.0) 07/19/17 19:14 Darius Test Positive 07/19/17 19:14 Vent Rate NA 07/18/17 10:48 Inspired O2 40 07/19/17 19:14 Tidal Volume NA 07/18/17 10:48 PEEP NA 07/18/17 10:48 Pressure (ins/psv/peep) NA 07/18/17 10:48 Critical Value SC 07/19/17 19:14 Sodium 139 mEq/L (136-145) 07/22/17 04:05 Potassium 4.0 mEq/L (3.5-5.1) 07/22/17 04:05 Chloride 105 mEq/L (98-107) 07/22/17 04:05 Carbon Dioxide 26.7 mEq/L (21.0-31.0) 07/22/17 04:05 Anion Gap 11.3 (7.0-16.0) 07/22/17 04:05 BUN 42 mg/dL (7-25) H 07/22/17 04:05 Creatinine 1.2 mg/dL (0.6-1.2) 07/22/17 04:05 Est GFR ( Amer) TNP 07/22/17 04:05 Est GFR (Non-Af Amer) TNP 07/22/17 04:05 BUN/Creatinine Ratio 35.0 07/22/17 04:05 Glucose 207 mg/dL (70-105) H 07/22/17 04:05 POC Glucose 177 MG/DL (70 - 105) H 07/14/17 11:26 Hemoglobin A1c % 5.2 % (4.0-6.0) 07/17/17 04:33 Whole Bld Lactic Acid 3.99 mmol/L (0.60-1.99) H* 07/05/17 13:00 Calcium 7.4 mg/dL (8.6-10.3) L 07/22/17 04:05 Phosphorus 1.5 mg/dL (2.5-5.0) L 07/02/17 05:20 Magnesium 1.7 mg/dL (1.9-2.7) L 07/02/17 05:20 Iron 21 07/03/17 05:48 TIBC 131 07/03/17 05:48 Iron Saturation 16 07/03/17 05:48 Unsaturated IBC 110 07/03/17 05:48 Ferritin 334 ng/mL (15-150) H 07/03/17 05:48 Total Bilirubin 0.5 mg/dL (0.3-1.0) 07/05/17 06:05 AST 16 U/L (13-39) 07/05/17 06:05 ALT 8 U/L (7-52) 07/05/17 06:05 Alkaline Phosphatase 66 U/L (34-104) 07/05/17 06:05 Troponin I 0.09 ng/mL (0.01-0.05) H* D 07/04/17 05:50 B-Natriuretic Peptide 215.0 pg/mL (5.0-100.0) H 07/01/17 14:10 Total Protein 5.6 gm/dL (6.0-8.3) L 07/05/17 06:05 Albumin 2.6 gm/dL (3.7-5.3) L 07/05/17 06:05 Globulin 3.0 gm/dL 07/05/17 06:05 Albumin/Globulin Ratio 0.9 (1.0-1.8) L 07/05/17 06:05 Triglycerides 107 mg/dL (<150) 07/04/17 05:50 Cholesterol 114 mg/dL (<200) 07/04/17 05:50 LDL Cholesterol Direct 59 mg/dL (75-193) L 07/04/17 05:50 HDL Cholesterol 31 mg/dL (23-92) 07/04/17 05:50 TSH 1.46 uIU/ml (0.34-5.60) 07/04/17 05:50 Urine Source CATH 07/05/17 18:30 Urine Color YELLOW 07/05/17 18:30 Urine Clarity CLOUDY (CLEAR) H 07/05/17 18:30 Urine pH 5.5 (4.6 - 8.0) 07/05/17 18:30 Ur Specific [place] 1.025 (1.005-1.030) 07/05/17 18:30 Urine Protein 30 mg/dL (NEGATIVE) H 07/05/17 18:30 Urine Glucose (UA) NEGATIVE mg/dL (NEGATIVE) 07/05/17 18:30 Urine Ketones TRACE mg/dL (NEGATIVE) 07/05/17 18:30 Urine Blood SMALL (NEGATIVE) H 07/05/17 18:30 Urine Nitrate NEGATIVE (NEGATIVE) 07/05/17 18:30 Urine Bilirubin NEGATIVE (NEGATIVE) 07/05/17 18:30 Urine Urobilinogen 0.2 E.U./dL (0.2 - 1.0) 07/05/17 18:30 Ur Leukocyte Esterase LARGE (NEGATIVE) H 07/05/17 18:30 Urine RBC 2-5 /hpf (0-5) 07/05/17 18:30 Urine WBC >100 /hpf (0-5) H 07/05/17 18:30 Ur Epithelial Cells FEW /lpf (FEW) 07/05/17 18:30 Urine Bacteria FEW /hpf (NONE SEEN) 07/05/17 18:30 Urine Yeast FEW /hpf (NONE SEEN) H 07/05/17 18:30 Stool Occult Blood POSITIVE (NEGATIVE) H 07/13/17 19:00 Vancomycin Trough 23.1 ug/mL (5-10) H 07/22/17 08:00 - Physical Exam Vitals and I&O: Vital Signs Temp 97.3 F 07/23/17 12:00 Pulse 81 07/23/17 12:00 Resp 22 07/23/17 12:00 BP 151/72 07/23/17 12:00 Pulse Ox 100 07/23/17 12:00 Intake & Output 07/22/17 07/23/17 07/23/17 18:59 06:59 18:59 Intake Total 1050 1000 244.75 Output Total 2330 1050 Balance -1280 -50 244.75 Weight (lbs) 68.492 kg 71.804 kg Intake: Intake, IV Amount 200 200 244.75 Piperacillin Sodium/ 200 200 Tazobact 2.25 gm In Sodium Chloride 0.9% 100 ml @ 100 mls/hr IV Q6HR [facility] Rx#:[id number] Vancomycin HCl 1 gm In 244.75 Sodium Chloride 0.9% 250 ml @ 165 mls/hr IV 0900 [facility] Rx#:[id number] Tube Feeding 600 600 Other 250 200 Output: Urine 1880 1050 Stool 450 Other: # Bowel Movements 1 0 Stool Characteristics Soft Brown Weight Source Bedscale Bedscale Active Medications: Current Medications Acetaminophen (Tylenol) 650 mg PO Q4H PRN PRN Reason: Fever > 101 Stop: 08/30/17 22:06 Last Admin: 07/23/17 10:17 Dose: 650 mg Albuterol/Ipratropium (Duoneb Neb) 3 ml HHN Q4HRT PRN PRN Reason: Wheezing Stop: 08/30/17 22:13 Last Admin: 07/22/17 18:56 Dose: 3 ml Albuterol/Ipratropium (Duoneb Neb) 3 ml HHN Q6HRT [facility] Stop: 08/31/17 00:59 Last Admin: 07/23/17 08:08 Dose: 3 ml Ascorbic Acid (Vitamin C) 500 mg PO DAILY [facility] Stop: 08/31/17 08:59 Last Admin: 07/23/17 08:49 Dose: 500 mg Baclofen (Lioresal) 5 mg PO TID [facility] Stop: 09/06/17 08:59 Last Admin: 07/23/17 08:49 Dose: 5 mg Bisacodyl (Dulcolax 10 Mg Supp) 10 mg RC DAILY PRN PRN Reason: BOWEL CARE MANAGEMENT Stop: 09/20/17 09:14 Budesonide (Pulmicort) 0.5 mg HHN BIDRT [facility] Stop: 08/31/17 18:59 Last Admin: 07/23/17 08:08 Dose: 0.5 mg Cyproheptadine HCl (Periactin) 4 mg PO BID [facility] Stop: 08/31/17 08:59 Last Admin: 07/23/17 10:16 Dose: 4 mg Docusate Sodium (Colace) 100 mg PO BID [facility] Stop: 08/31/17 08:59 Last Admin: 07/23/17 08:49 Dose: 100 mg Ferrous Sulfate (Iron) 325 mg PO BID [facility] Stop: 08/31/17 08:59 Last Admin: 07/23/17 08:49 Dose: 325 mg Folic Acid (Folate) 1 mg PO DAILY [facility] Stop: 08/31/17 08:59 Last Admin: 07/23/17 08:49 Dose: 1 mg Furosemide (Lasix) 20 mg IVP DAILY [facility] Stop: 09/16/17 11:59 Last Admin: 07/23/17 08:49 Dose: 20 mg Norepinephrine Bitartrate 4 mg (/ Sodium Chloride) 254 mls @ 0 mls/hr IV TITR [facility]; Titrate PRN Reason: Protocol Stop: 09/03/17 16:29 Piperacillin Sod/Tazobactam (Sod 2.25 gm/ Sodium Chloride) 100 mls @ 100 mls/ hr IV Q6HR [facility] Stop: 09/14/17 18:44 Last Admin: 07/23/17 11:42 Dose: 100 mls/hr Dextrose/Sodium Chloride (D5-0.45ns) 1,000 mls @ 40 mls/hr IV .Q24H [facility] Stop: 09/21/17 10:38 Last Admin: 07/23/17 12:25 Dose: 40 mls/hr Lactobacillus Rhamnosus (Culturelle 15b) 1 each PO DAILY [facility] Stop: 09/01/17 08:59 Last Admin: 07/23/17 08:49 Dose: 1 each Lactulose (Cephulac) 20 gm PO QID PRN PRN Reason: Constipation Stop: 08/30/17 22:18 Last Admin: 07/17/17 17:50 Dose: 20 gm Lorazepam (Ativan) 1 mg IVP Q4HR PRN; Protocol PRN Reason: Anxiety Stop: 09/04/17 08:31 Last Admin: 07/18/17 21:49 Dose: 1 mg Losartan Potassium (Cozaar) 100 mg PO DAILY [facility] Stop: 09/22/17 08:59 Methylprednisolone Sodium Succinate (Solu-Medrol) 40 mg IVP Q8HR [facility] Stop: 09/09/17 20:59 Last Admin: 07/23/17 12:20 Dose: 40 mg Miscellaneous (Probiotic Screen) 1 ea PRN PRN PRN Reason: PROTOCOL Stop: 09/01/17 08:44 Miscellaneous (Vancomycin Iv Per Pharmacy) 1 ea PRN PRN PRN Reason: PROTOCOL Stop: 09/14/17 17:27 Multivitamins/Vitamin C (Theragran) 1 tab PO DAILY [facility] Stop: 08/31/17 08:59 Last Admin: 07/23/17 08:49 Dose: 1 tab Nicotine (Nicotine Transdermal System) 14 mg TD DAILY [facility] Stop: 09/04/17 08:59 Last Admin: 07/23/17 08:48 Dose: 14 mg Pantoprazole Sodium (Protonix) 40 mg IVP BID [facility] Stop: 09/13/17 08:59 Last Admin: 07/23/17 08:49 Dose: 40 mg General: Alert, Cooperative, Other (awake now. NAD) HEENT: Atraumatic, Other Neck: Supple, no JVD, no Thyromegaly Cardiovascular: Regular rate, Other (in A fib) Lungs: Other Abdomen: Bowel sounds, Soft, no Tender, no Hepatomegaly Extremities: Edema, no Clubbing Neurological: Other (Pt unable to participate in test) Skin: Other (+2 pitting edema), no Rash Psych/Mental Status: Other (no psychosis) - Procedures Procedures: Procedures Procedure Code Date INSERT EMERGENCY AIRWAY 02566 07/01/17 INSERTION OF ENDOTRACHEAL AIRWAY INTO TRACHEA, VIA OPENING [id number] 07/01/17 RESPIRATORY VENTILATION, GREATER THAN 96 CONSECUTIVE HOURS [id number] 07/01/17 VENT MGMT INPAT INIT DAY 40592 07/01/17 Assessment/Plan - Problem List Patient Problems: All Active Problems WEAKESS AND POOR ORAL INTAKE (Acute) - Assessment Assessment: * Advanced metastatic cancer * poor functional status * Anemia likely of chronic disease * Respiratory failure s/p intubation 07/05 off cpap, 07/19 back on vent. 07/20 extubated iron studies cw anemia of chronic disease. hgb better today without transfusion monitor hgb and transfuse for < 7.5 swallow evaluation very Poor prognosis follow cbc Nutritional Asmnt/Malnutr-PDOC - Dietary Evaluation Malnutrition Findings (Please click <Entered> for more info): Nutritional Asmnt/Malnutrition Start: 07/03/17 13: 22 Text: Status: Complete Freq: Document 07/03/17 13:22 URBAN (Rec: 07/03/17 13:35 URBAN ELLER- [email or web address]) Nutritional Asmnt/Malnutrition Patient General Information Nutritional Screening Consult Diagnosis UTI, Failure to thrive, hypokalemia Pertinent Medical Hx/Surgical Hx CAD, HTN, COPD, Stage 4 lung cancer, peripheral neuropathy, constipation, GERD, anxiety, low back pain Subjective Information Consult received for Failure to Thrive. Current Diet Order/ Nutrition Support Regular diet, pureed with mechaical soft Patient / S.O Not Indicated Pertinent Medications Vitamin C, dulcolax, D5-0.45 NS @ 75 ml/hr, colace, iron, folate, lactulose, theragran Pertinent Labs (07/02) P 1.5, Mg 1.7, albumin 2.9 Nutritional Hx/Data Height 1.6 m Height (Calculated Centimeters) 160.0 Current Weight (lbs) 54.885 kg Weight (Calculated Kilograms) 54.9 Weight (Calculated Grams) 19089.7 Ethel Body Weight 115 % Ethel Body Weight 105 Body Mass Index (BMI) 21.4 Recent Weight Change No Weight Status Approriate GI Symptoms GI Symptoms None Last BM Prior to admission Difficult in: None Food Allergies No Cultural/Ethnic/Zoroastrian Belief None indicated Skin Integrity/Comment: Pradeep 15 Current %PO Poor (25-49%) Estimated Nutritional Goals BEE in Kcals: Using Current wt Calories/Kcals/Kg 55kg CBW (25-30kcal/kg) Kcals Calculated 4396-1007 kcal/day Protein: Using Current wt Protein g/k-1.2 gm/kg Protein Calculated 55-65 gm/day Fluid: ml 7757-0727 ml/day (1 ml/kcal) Nutritional Problem 2. Problem Problem Inadequate oral intake related to Etiology poor appetite aeb Signs/Symptoms: meeting <75% of estimated nutrient needs 1. Problem Problem Altered nutrition related lab values related to Etiology electrolyte imbalance aeb Signs/Symptoms: P 1.5, Mg 1.7 Intervention/Recommendation Comments 1. Continue pureed diet as tolerated by patient. 2. RN To assist with feedings and encourage oral intake. 3. Consider adding Boost plus between meals to optimize calorie and protein intake. Expected Outcomes/Goals Expected Outcomes/Goals Oral intake to meet >75% of needs, weight stable, nutrition labs WNL F/U MR 07/06-
--- NOTE | 2017-07-23 14:40 | Infectious Disease Prog Note ---
Infectious Disease Subjective - Review of Systems Service Date: 07/23/17 Subjective: There is no new change. Patient remains off vent. Failed swallow eval. Family refused peg placement. Low grade fever. leukocytosis is improving. Infectious Disease Objective - Results Result Diagrams: 07/22/17 04:05 07/22/17 04:05 Recent Labs: Laboratory Last Values WBC 16.5 Th/cmm (4.8-10.8) H 07/22/17 04:05 RBC 2.58 Mil/cmm (3.80-5.20) L 07/22/17 04:05 Hgb 7.7 gm/dL (12-16) L* 07/22/17 04:05 Hct 22.8 % (41.0-60) L 07/22/17 04:05 MCV 88.5 fl (81-100) 07/22/17 04:05 MCH 29.9 pg (27.0-31.0) 07/22/17 04:05 MCHC Differential 33.8 pg (28.0-36.0) 07/22/17 04:05 RDW 15.6 % (11.5-20.0) 07/22/17 04:05 Plt Count 335 Th/cmm (150-400) 07/22/17 04:05 MPV 6.9 fl 07/22/17 04:05 Neutrophils % 92.8 % (40.0-80.0) H 07/20/17 06:00 Band Neutrophils % 2 % (0-10) 07/21/17 04:30 Lymphocytes % 2.5 % (20.0-50.0) L 07/20/17 06:00 Monocytes % 4.2 % (2.0-10.0) 07/20/17 06:00 Eosinophils % 0.3 % (0.0-5.0) 07/20/17 06:00 Basophils % 0.2 % (0.0-2.0) 07/20/17 06:00 Neutrophils (Manual) 95 % (40-80) H 07/22/17 04:05 Lymphocytes 4 % (20-50) L 07/22/17 04:05 Monocytes 1 % (2-10) L 07/22/17 04:05 Eosinophils 0 % (0-5) 07/16/17 04:35 Basophils 0 % (0-3) 07/16/17 04:35 Hypochromia 1+ 07/21/17 04:30 Platelet Estimate ADEQUATE (NORMAL) 07/22/17 04:05 Platelet Morphology NORMAL (NORMAL) 07/16/17 04:35 Polychromasia 1+ 07/14/17 05:00 Ovalocytes 1+ 07/21/17 04:30 RBC Morph Micro Appear NORMAL (NORMAL) 07/16/17 04:35 Specimen Source Arterial 07/19/17 19:14 Sample Site RIGHT BRACHIAL 07/19/17 19:14 pH 7.44 (7.35-7.45) 07/19/17 19:14 pCO2 39.0 mmHg (35.0-45.0) 07/19/17 19:14 pO2 179.0 mmHg (80.0-100.0) H 07/19/17 19:14 HCO3 26.7 mEq/L (20.0-26.0) H 07/19/17 19:14 Base Excess 2.2 mEq/L (-3.0-3.0) 07/19/17 19:14 O2 Saturation 100.0 % (92.0-100.0) 07/19/17 19:14 Darius Test Positive 07/19/17 19:14 Vent Rate NA 07/18/17 10:48 Inspired O2 40 07/19/17 19:14 Tidal Volume NA 07/18/17 10:48 PEEP NA 07/18/17 10:48 Pressure (ins/psv/peep) NA 07/18/17 10:48 Critical Value SC 07/19/17 19:14 Sodium 139 mEq/L (136-145) 07/22/17 04:05 Potassium 4.0 mEq/L (3.5-5.1) 07/22/17 04:05 Chloride 105 mEq/L (98-107) 07/22/17 04:05 Carbon Dioxide 26.7 mEq/L (21.0-31.0) 07/22/17 04:05 Anion Gap 11.3 (7.0-16.0) 07/22/17 04:05 BUN 42 mg/dL (7-25) H 07/22/17 04:05 Creatinine 1.2 mg/dL (0.6-1.2) 07/22/17 04:05 Est GFR ( Amer) TNP 07/22/17 04:05 Est GFR (Non-Af Amer) TNP 07/22/17 04:05 BUN/Creatinine Ratio 35.0 07/22/17 04:05 Glucose 207 mg/dL (70-105) H 07/22/17 04:05 POC Glucose 177 MG/DL (70 - 105) H 07/14/17 11:26 Hemoglobin A1c % 5.2 % (4.0-6.0) 07/17/17 04:33 Whole Bld Lactic Acid 3.99 mmol/L (0.60-1.99) H* 07/05/17 13:00 Calcium 7.4 mg/dL (8.6-10.3) L 07/22/17 04:05 Phosphorus 1.5 mg/dL (2.5-5.0) L 07/02/17 05:20 Magnesium 1.7 mg/dL (1.9-2.7) L 07/02/17 05:20 Iron 21 07/03/17 05:48 TIBC 131 07/03/17 05:48 Iron Saturation 16 07/03/17 05:48 Unsaturated IBC 110 07/03/17 05:48 Ferritin 334 ng/mL (15-150) H 07/03/17 05:48 Total Bilirubin 0.5 mg/dL (0.3-1.0) 07/05/17 06:05 AST 16 U/L (13-39) 07/05/17 06:05 ALT 8 U/L (7-52) 07/05/17 06:05 Alkaline Phosphatase 66 U/L (34-104) 07/05/17 06:05 Troponin I 0.09 ng/mL (0.01-0.05) H* D 07/04/17 05:50 B-Natriuretic Peptide 215.0 pg/mL (5.0-100.0) H 07/01/17 14:10 Total Protein 5.6 gm/dL (6.0-8.3) L 07/05/17 06:05 Albumin 2.6 gm/dL (3.7-5.3) L 07/05/17 06:05 Globulin 3.0 gm/dL 07/05/17 06:05 Albumin/Globulin Ratio 0.9 (1.0-1.8) L 07/05/17 06:05 Triglycerides 107 mg/dL (<150) 07/04/17 05:50 Cholesterol 114 mg/dL (<200) 07/04/17 05:50 LDL Cholesterol Direct 59 mg/dL (75-193) L 07/04/17 05:50 HDL Cholesterol 31 mg/dL (23-92) 07/04/17 05:50 TSH 1.46 uIU/ml (0.34-5.60) 07/04/17 05:50 Urine Source CATH 07/05/17 18:30 Urine Color YELLOW 07/05/17 18:30 Urine Clarity CLOUDY (CLEAR) H 07/05/17 18:30 Urine pH 5.5 (4.6 - 8.0) 07/05/17 18:30 Ur Specific [place] 1.025 (1.005-1.030) 07/05/17 18:30 Urine Protein 30 mg/dL (NEGATIVE) H 07/05/17 18:30 Urine Glucose (UA) NEGATIVE mg/dL (NEGATIVE) 07/05/17 18:30 Urine Ketones TRACE mg/dL (NEGATIVE) 07/05/17 18:30 Urine Blood SMALL (NEGATIVE) H 07/05/17 18:30 Urine Nitrate NEGATIVE (NEGATIVE) 07/05/17 18:30 Urine Bilirubin NEGATIVE (NEGATIVE) 07/05/17 18:30 Urine Urobilinogen 0.2 E.U./dL (0.2 - 1.0) 07/05/17 18:30 Ur Leukocyte Esterase LARGE (NEGATIVE) H 07/05/17 18:30 Urine RBC 2-5 /hpf (0-5) 07/05/17 18:30 Urine WBC >100 /hpf (0-5) H 07/05/17 18:30 Ur Epithelial Cells FEW /lpf (FEW) 07/05/17 18:30 Urine Bacteria FEW /hpf (NONE SEEN) 07/05/17 18:30 Urine Yeast FEW /hpf (NONE SEEN) H 07/05/17 18:30 Stool Occult Blood POSITIVE (NEGATIVE) H 07/13/17 19:00 Vancomycin Trough 23.1 ug/mL (5-10) H 07/22/17 08:00 - Physical Exam Vitals and I&O: Vital Signs Temp 97.3 F 07/23/17 12:00 Pulse 81 07/23/17 13:50 Resp 20 07/23/17 13:50 BP 151/72 07/23/17 12:00 Pulse Ox 100 07/23/17 13:50 Intake & Output 07/22/17 07/23/17 07/23/17 18:59 06:59 18:59 Intake Total 1050 1000 344.75 Output Total 2330 1050 Balance -1280 -50 344.75 Weight (lbs) 68.492 kg 71.804 kg Intake: Intake, IV Amount 200 200 344.75 Piperacillin Sodium/ 200 200 100 Tazobact 2.25 gm In Sodium Chloride 0.9% 100 ml @ 100 mls/hr IV Q6HR [facility] Rx#:[id number] Vancomycin HCl 1 gm In 244.75 Sodium Chloride 0.9% 250 ml @ 165 mls/hr IV 0900 [facility] Rx#:[id number] Tube Feeding 600 600 Other 250 200 Output: Urine 1880 1050 Stool 450 Other: # Bowel Movements 1 0 Stool Characteristics Soft Brown Weight Source Bedscale Bedscale Active Medications: Current Medications Acetaminophen (Tylenol) 650 mg PO Q4H PRN PRN Reason: Fever > 101 Stop: 08/30/17 22:06 Last Admin: 07/23/17 10:17 Dose: 650 mg Albuterol/Ipratropium (Duoneb Neb) 3 ml HHN Q4HRT PRN PRN Reason: Wheezing Stop: 08/30/17 22:13 Last Admin: 07/22/17 18:56 Dose: 3 ml Albuterol/Ipratropium (Duoneb Neb) 3 ml HHN Q6HRT [facility] Stop: 08/31/17 00:59 Last Admin: 07/23/17 13:48 Dose: 3 ml Ascorbic Acid (Vitamin C) 500 mg PO DAILY [facility] Stop: 08/31/17 08:59 Last Admin: 07/23/17 08:49 Dose: 500 mg Baclofen (Lioresal) 5 mg PO TID [facility] Stop: 09/06/17 08:59 Last Admin: 07/23/17 13:38 Dose: 5 mg Bisacodyl (Dulcolax 10 Mg Supp) 10 mg RC DAILY PRN PRN Reason: BOWEL CARE MANAGEMENT Stop: 09/20/17 09:14 Budesonide (Pulmicort) 0.5 mg HHN BIDRT [facility] Stop: 08/31/17 18:59 Last Admin: 07/23/17 08:08 Dose: 0.5 mg Cyproheptadine HCl (Periactin) 4 mg PO BID [facility] Stop: 08/31/17 08:59 Last Admin: 07/23/17 10:16 Dose: 4 mg Docusate Sodium (Colace) 100 mg PO BID [facility] Stop: 08/31/17 08:59 Last Admin: 07/23/17 08:49 Dose: 100 mg Ferrous Sulfate (Iron) 325 mg PO BID [facility] Stop: 08/31/17 08:59 Last Admin: 07/23/17 08:49 Dose: 325 mg Folic Acid (Folate) 1 mg PO DAILY [facility] Stop: 08/31/17 08:59 Last Admin: 07/23/17 08:49 Dose: 1 mg Furosemide (Lasix) 20 mg IVP DAILY [facility] Stop: 09/16/17 11:59 Last Admin: 07/23/17 08:49 Dose: 20 mg Norepinephrine Bitartrate 4 mg (/ Sodium Chloride) 254 mls @ 0 mls/hr IV TITR [facility]; Titrate PRN Reason: Protocol Stop: 09/03/17 16:29 Piperacillin Sod/Tazobactam (Sod 2.25 gm/ Sodium Chloride) 100 mls @ 100 mls/ hr IV Q6HR [facility] Stop: 09/14/17 18:44 Last Infusion: 07/23/17 13:38 Dose: Infused Dextrose/Sodium Chloride (D5-0.45ns) 1,000 mls @ 40 mls/hr IV .Q24H [facility] Stop: 09/21/17 10:38 Last Admin: 07/23/17 12:25 Dose: 40 mls/hr Lactobacillus Rhamnosus (Culturelle 15b) 1 each PO DAILY [facility] Stop: 09/01/17 08:59 Last Admin: 07/23/17 08:49 Dose: 1 each Lactulose (Cephulac) 20 gm PO QID PRN PRN Reason: Constipation Stop: 08/30/17 22:18 Last Admin: 07/17/17 17:50 Dose: 20 gm Lorazepam (Ativan) 1 mg IVP Q4HR PRN; Protocol PRN Reason: Anxiety Stop: 09/04/17 08:31 Last Admin: 07/18/17 21:49 Dose: 1 mg Losartan Potassium (Cozaar) 100 mg PO DAILY SHADI Stop: 09/22/17 08:59 Methylprednisolone Sodium Succinate (Solu-Medrol) 40 mg IVP Q8HR SHADI Stop: 09/09/17 20:59 Last Admin: 07/23/17 12:20 Dose: 40 mg Miscellaneous (Probiotic Screen) 1 ea PRN PRN PRN Reason: PROTOCOL Stop: 09/01/17 08:44 Miscellaneous (Vancomycin Iv Per Pharmacy) 1 [facility] PRN PRN PRN Reason: PROTOCOL Stop: 09/14/17 17:27 Multivitamins/Vitamin C (Theragran) 1 tab PO DAILY SHADI Stop: 08/31/17 08:59 Last Admin: 07/23/17 08:49 Dose: 1 tab Nicotine (Nicotine Transdermal System) 14 mg TD DAILY SHADI Stop: 09/04/17 08:59 Last Admin: 07/23/17 08:48 Dose: 14 mg Pantoprazole Sodium (Protonix) 40 mg IVP BID SHADI Stop: 09/13/17 08:59 Last Admin: 07/23/17 08:49 Dose: 40 mg General: no acute distress, cachectic HEENT: atraumatic, normocephalic, PERRLA Neck: supple, no thyromegaly Cardiovascular: S1S2, regular Lungs: crackles Abdomen: soft, no tender, no distended, no mass, no rebound Extremities: no cyanosis, no clubbing Neurological: awake, alert, oriented - Procedures Procedures: Procedures Procedure Code Date INSERT EMERGENCY AIRWAY 06276 07/01/17 INSERTION OF ENDOTRACHEAL AIRWAY INTO [place]ACHEA, VIA OPENING [id number] 07/01/17 RESPIRATORY VENTILATION, GREATER THAN 96 CONSECUTIVE HOURS [id number] 07/01/17 VENT MGMT INPAT INIT DAY [id number] 07/01/17 Infectious Disease Assmt/Plan - Problem List Patient Problems: All Active Problems WEAKESS AND POOR ORAL INTAKE (Acute) - Assessment Assessment: 1. Leukocytosis. Fever, sepsis. Improving. 2. Pneumonia. 3. Stage IV lung CA. 4. Protein calorie malnutrion, 5. VDRF. 6. ALTERED MENTAL STATUS. - Plan Plan: Continue zosyn and vanco for few days. Poor prognosis. Nutritional Asmnt/Malnutr-PDOC - Dietary Evaluation Malnutrition Findings (Please click <Entered> for more info): Nutritional Asmnt/Malnutrition Start: 07/03/17 13: 22 Text: Status: Complete Freq: Document 04/15/18 13:22 ADALIJENN (Rec: 07/03/17 13:35 URBAN [email or web address]) Nutritional Asmnt/Malnutrition Patient General Information Nutritional Screening Consult Diagnosis UTI, Failure to thrive, hypokalemia Pertinent Medical Hx/Surgical Hx CAD, HTN, COPD, Stage 4 lung cancer, peripheral neuropathy, constipation, GERD, anxiety, low back pain Subjective Information Consult received for Failure to Thrive. Current Diet Order/ Nutrition Support Regular diet, pureed with mechaical soft Patient / S.O Not Indicated Pertinent Medications Vitamin C, dulcolax, D5-0.45 NS @ 75 ml/hr, colace, iron, folate, lactulose, theragran Pertinent Labs (07/02) P 1.5, Mg 1.7, albumin 2.9 Nutritional Hx/Data Height 1.6 m Height (Calculated Centimeters) 160.0 Current Weight (lbs) 54.885 kg Weight (Calculated Kilograms) 54.9 Weight (Calculated Grams) 03604.7 [place] Body Weight 115 % [place] Body Weight 105 Body Mass Index (BMI) 21.4 Recent Weight Change No Weight Status Approriate GI Symptoms GI Symptoms None Last BM Prior to admission Difficult in: None Food Allergies No Cultural/Ethnic/Anglican Belief None indicated Skin Integrity/Comment: Pardeep Cook Current %PO Poor (25-49%) Estimated Nutritional Goals BEE in Kcals: Using Current wt Calories/Kcals/Kg 55kg CBW (25-30kcal/kg) Kcals Calculated 0645-0816 kcal/day Protein: Using Current wt Protein g/k-1.2 gm/kg Protein Calculated 55-65 gm/day Fluid: ml 4843-9186 ml/day (1 ml/kcal) Nutritional Problem 2. Problem Problem Inadequate oral intake related to Etiology poor appetite aeb Signs/Symptoms: meeting <75% of estimated nutrient needs 1. Problem Problem Altered nutrition related lab values related to Etiology electrolyte imbalance aeb Signs/Symptoms: P 1.5, Mg 1.7 Intervention/Recommendation Comments 1. Continue pureed diet as tolerated by patient. 2. RN To assist with feedings and encourage oral intake. 3. Consider adding Boost plus between meals to optimize calorie and protein intake. Expected Outcomes/Goals Expected Outcomes/Goals Oral intake to meet >75% of needs, weight stable, nutrition labs WNL F/U MR 07/06-
--- NOTE | 2017-07-23 18:16 | GI Progress Note ---
Subjective - Review of Systems Service Date: 07/23/17 Events since last encounter: No events Objective - Results Result Diagrams: 07/22/17 04:05 07/22/17 04:05 Recent Labs: Laboratory Last Values WBC 16.5 Th/cmm (4.8-10.8) H 07/22/17 04:05 RBC 2.58 Mil/cmm (3.80-5.20) L 07/22/17 04:05 Hgb 7.7 gm/dL (12-16) L* 07/22/17 04:05 Hct 22.8 % (41.0-60) L 07/22/17 04:05 MCV 88.5 fl (81-100) 07/22/17 04:05 MCH 29.9 pg (27.0-31.0) 07/22/17 04:05 MCHC Differential 33.8 pg (28.0-36.0) 07/22/17 04:05 RDW 15.6 % (11.5-20.0) 07/22/17 04:05 Plt Count 335 Th/cmm (150-400) 07/22/17 04:05 MPV 6.9 fl 07/22/17 04:05 Neutrophils % 92.8 % (40.0-80.0) H 07/20/17 06:00 Band Neutrophils % 2 % (0-10) 07/21/17 04:30 Lymphocytes % 2.5 % (20.0-50.0) L 07/20/17 06:00 Monocytes % 4.2 % (2.0-10.0) 07/20/17 06:00 Eosinophils % 0.3 % (0.0-5.0) 07/20/17 06:00 Basophils % 0.2 % (0.0-2.0) 07/20/17 06:00 Neutrophils (Manual) 95 % (40-80) H 07/22/17 04:05 Lymphocytes 4 % (20-50) L 07/22/17 04:05 Monocytes 1 % (2-10) L 07/22/17 04:05 Eosinophils 0 % (0-5) 07/16/17 04:35 Basophils 0 % (0-3) 07/16/17 04:35 Hypochromia 1+ 07/21/17 04:30 Platelet Estimate ADEQUATE (NORMAL) 07/22/17 04:05 Platelet Morphology NORMAL (NORMAL) 07/16/17 04:35 Polychromasia 1+ 07/14/17 05:00 Ovalocytes 1+ 07/21/17 04:30 RBC Morph Micro Appear NORMAL (NORMAL) 07/16/17 04:35 Specimen Source Arterial 07/19/17 19:14 Sample Site RIGHT BRACHIAL 07/19/17 19:14 pH 7.44 (7.35-7.45) 07/19/17 19:14 pCO2 39.0 mmHg (35.0-45.0) 07/19/17 19:14 pO2 179.0 mmHg (80.0-100.0) H 07/19/17 19:14 HCO3 26.7 mEq/L (20.0-26.0) H 07/19/17 19:14 Base Excess 2.2 mEq/L (-3.0-3.0) 07/19/17 19:14 O2 Saturation 100.0 % (92.0-100.0) 07/19/17 19:14 Darius Test Positive 07/19/17 19:14 Vent Rate NA 07/18/17 10:48 Inspired O2 40 07/19/17 19:14 Tidal Volume NA 07/18/17 10:48 PEEP NA 07/18/17 10:48 Pressure (ins/psv/peep) NA 07/18/17 10:48 Critical Value SC 07/19/17 19:14 Sodium 139 mEq/L (136-145) 07/22/17 04:05 Potassium 4.0 mEq/L (3.5-5.1) 07/22/17 04:05 Chloride 105 mEq/L (98-107) 07/22/17 04:05 Carbon Dioxide 26.7 mEq/L (21.0-31.0) 07/22/17 04:05 Anion Gap 11.3 (7.0-16.0) 07/22/17 04:05 BUN 42 mg/dL (7-25) H 07/22/17 04:05 Creatinine 1.2 mg/dL (0.6-1.2) 07/22/17 04:05 Est GFR ( Amer) TNP 07/22/17 04:05 Est GFR (Non-Af Amer) TNP 07/22/17 04:05 BUN/Creatinine Ratio 35.0 07/22/17 04:05 Glucose 207 mg/dL (70-105) H 07/22/17 04:05 POC Glucose 177 MG/DL (70 - 105) H 07/14/17 11:26 Hemoglobin A1c % 5.2 % (4.0-6.0) 07/17/17 04:33 Whole Bld Lactic Acid 3.99 mmol/L (0.60-1.99) H* 07/05/17 13:00 Calcium 7.4 mg/dL (8.6-10.3) L 07/22/17 04:05 Phosphorus 1.5 mg/dL (2.5-5.0) L 07/02/17 05:20 Magnesium 1.7 mg/dL (1.9-2.7) L 07/02/17 05:20 Iron 21 07/03/17 05:48 TIBC 131 07/03/17 05:48 Iron Saturation 16 07/03/17 05:48 Unsaturated IBC 110 07/03/17 05:48 Ferritin 334 ng/mL (15-150) H 07/03/17 05:48 Total Bilirubin 0.5 mg/dL (0.3-1.0) 07/05/17 06:05 AST 16 U/L (13-39) 07/05/17 06:05 ALT 8 U/L (7-52) 07/05/17 06:05 Alkaline Phosphatase 66 U/L (34-104) 07/05/17 06:05 Troponin I 0.09 ng/mL (0.01-0.05) H* D 07/04/17 05:50 B-Natriuretic Peptide 215.0 pg/mL (5.0-100.0) H 07/01/17 14:10 Total Protein 5.6 gm/dL (6.0-8.3) L 07/05/17 06:05 Albumin 2.6 gm/dL (3.7-5.3) L 07/05/17 06:05 Globulin 3.0 gm/dL 07/05/17 06:05 Albumin/Globulin Ratio 0.9 (1.0-1.8) L 07/05/17 06:05 Triglycerides 107 mg/dL (<150) 07/04/17 05:50 Cholesterol 114 mg/dL (<200) 07/04/17 05:50 LDL Cholesterol Direct 59 mg/dL (75-193) L 07/04/17 05:50 HDL Cholesterol 31 mg/dL (23-92) 07/04/17 05:50 TSH 1.46 uIU/ml (0.34-5.60) 07/04/17 05:50 Urine Source CATH 07/05/17 18:30 Urine Color YELLOW 07/05/17 18:30 Urine Clarity CLOUDY (CLEAR) H 07/05/17 18:30 Urine pH 5.5 (4.6 - 8.0) 07/05/17 18:30 Ur Specific [place] 1.025 (1.005-1.030) 07/05/17 18:30 Urine Protein 30 mg/dL (NEGATIVE) H 07/05/17 18:30 Urine Glucose (UA) NEGATIVE mg/dL (NEGATIVE) 07/05/17 18:30 Urine Ketones TRACE mg/dL (NEGATIVE) 07/05/17 18:30 Urine Blood SMALL (NEGATIVE) H 07/05/17 18:30 Urine Nitrate NEGATIVE (NEGATIVE) 07/05/17 18:30 Urine Bilirubin NEGATIVE (NEGATIVE) 07/05/17 18:30 Urine Urobilinogen 0.2 E.U./dL (0.2 - 1.0) 07/05/17 18:30 Ur Leukocyte Esterase LARGE (NEGATIVE) H 07/05/17 18:30 Urine RBC 2-5 /hpf (0-5) 07/05/17 18:30 Urine WBC >100 /hpf (0-5) H 07/05/17 18:30 Ur Epithelial Cells FEW /lpf (FEW) 07/05/17 18:30 Urine Bacteria FEW /hpf (NONE SEEN) 07/05/17 18:30 Urine Yeast FEW /hpf (NONE SEEN) H 07/05/17 18:30 Stool Occult Blood POSITIVE (NEGATIVE) H 07/13/17 19:00 Vancomycin Trough 23.1 ug/mL (5-10) H 07/22/17 08:00 - Physical Exam Vitals and I&O: Vital Signs Temp 97.3 F 07/23/17 12:00 Pulse 82 07/23/17 16:00 Resp 23 07/23/17 16:00 BP 108/69 07/23/17 16:00 Pulse Ox 100 07/23/17 16:00 Intake & Output 07/22/17 07/23/17 07/23/17 18:59 06:59 18:59 Intake Total 1050 1000 1194.75 Output Total 2330 1050 1800 Balance -1280 -50 -605.25 Weight (lbs) 68.492 kg 71.804 kg 68.039 kg Intake: Intake, IV Amount 200 200 344.75 Piperacillin Sodium/ 200 200 100 Tazobact 2.25 gm In Sodium Chloride 0.9% 100 ml @ 100 mls/hr IV Q6HR [facility] Rx#:[id number] Vancomycin HCl 1 gm In 244.75 Sodium Chloride 0.9% 250 ml @ 165 mls/hr IV 0900 [facility] Rx#:[id number] Tube Feeding 600 600 600 Other 250 200 250 Output: Urine 1880 1050 1800 Stool 450 Other: # Bowel Movements 1 0 Stool Characteristics Soft Brown Weight Source Bedscale Bedscale Patient stated Active Medications: Current Medications Acetaminophen (Tylenol) 650 mg PO Q4H PRN PRN Reason: Fever > 101 Stop: 08/30/17 22:06 Last Admin: 07/23/17 10:17 Dose: 650 mg Albuterol/Ipratropium (Duoneb Neb) 3 ml HHN Q4HRT PRN PRN Reason: Wheezing Stop: 08/30/17 22:13 Last Admin: 07/22/17 18:56 Dose: 3 ml Albuterol/Ipratropium (Duoneb Neb) 3 ml HHN Q6HRT [facility] Stop: 08/31/17 00:59 Last Admin: 07/23/17 13:48 Dose: 3 ml Ascorbic Acid (Vitamin C) 500 mg PO DAILY [facility] Stop: 08/31/17 08:59 Last Admin: 07/23/17 08:49 Dose: 500 mg Baclofen (Lioresal) 5 mg PO TID [facility] Stop: 09/06/17 08:59 Last Admin: 07/23/17 13:38 Dose: 5 mg Bisacodyl (Dulcolax 10 Mg Supp) 10 mg RC DAILY PRN PRN Reason: BOWEL CARE MANAGEMENT Stop: 09/20/17 09:14 Budesonide (Pulmicort) 0.5 mg HHN BIDRT [facility] Stop: 08/31/17 18:59 Last Admin: 07/23/17 08:08 Dose: 0.5 mg Cyproheptadine HCl (Periactin) 4 mg PO BID [facility] Stop: 08/31/17 08:59 Last Admin: 07/23/17 16:58 Dose: 4 mg Docusate Sodium (Colace) 100 mg PO BID [facility] Stop: 08/31/17 08:59 Last Admin: 07/23/17 16:27 Dose: 100 mg Ferrous Sulfate (Iron) 325 mg PO BID [facility] Stop: 08/31/17 08:59 Last Admin: 07/23/17 16:27 Dose: 325 mg Folic Acid (Folate) 1 mg PO DAILY [facility] Stop: 08/31/17 08:59 Last Admin: 07/23/17 08:49 Dose: 1 mg Furosemide (Lasix) 20 mg IVP DAILY [facility] Stop: 09/16/17 11:59 Last Admin: 07/23/17 08:49 Dose: 20 mg Norepinephrine Bitartrate 4 mg (/ Sodium Chloride) 254 mls @ 0 mls/hr IV TITR [facility]; Titrate PRN Reason: Protocol Stop: 09/03/17 16:29 Piperacillin Sod/Tazobactam (Sod 2.25 gm/ Sodium Chloride) 100 mls @ 100 mls/ hr IV Q6HR [facility] Stop: 09/14/17 18:44 Last Admin: 07/23/17 17:00 Dose: 100 mls/hr Dextrose/Sodium Chloride (D5-0.45ns) 1,000 mls @ 40 mls/hr IV .Q24H [facility] Stop: 09/21/17 10:38 Last Admin: 07/23/17 12:25 Dose: 40 mls/hr Lactobacillus Rhamnosus (Culturelle 15b) 1 each PO DAILY [facility] Stop: 09/01/17 08:59 Last Admin: 07/23/17 08:49 Dose: 1 each Lactulose (Cephulac) 20 gm PO QID PRN PRN Reason: Constipation Stop: 08/30/17 22:18 Last Admin: 07/17/17 17:50 Dose: 20 gm Lorazepam (Ativan) 1 mg IVP Q4HR PRN; Protocol PRN Reason: Anxiety Stop: 09/04/17 08:31 Last Admin: 07/18/17 21:49 Dose: 1 mg Losartan Potassium (Cozaar) 100 mg PO DAILY [facility] Stop: 09/22/17 08:59 Methylprednisolone Sodium Succinate (Solu-Medrol) 40 mg IVP Q8HR [facility] Stop: 09/09/17 20:59 Last Admin: 07/23/17 12:20 Dose: 40 mg Miscellaneous (Probiotic Screen) 1 ea PRN PRN PRN Reason: PROTOCOL Stop: 09/01/17 08:44 Miscellaneous (Vancomycin Iv Per Pharmacy) 1 ea PRN PRN PRN Reason: PROTOCOL Stop: 09/14/17 17:27 Multivitamins/Vitamin C (Theragran) 1 tab PO DAILY [facility] Stop: 08/31/17 08:59 Last Admin: 07/23/17 08:49 Dose: 1 tab Nicotine (Nicotine Transdermal System) 14 mg TD DAILY [facility] Stop: 09/04/17 08:59 Last Admin: 07/23/17 08:48 Dose: 14 mg Pantoprazole Sodium (Protonix) 40 mg IVP BID [facility] Stop: 09/13/17 08:59 Last Admin: 07/23/17 16:27 Dose: 40 mg General: Cooperative, Other (awake now. NAD) HEENT: Atraumatic, Other Neck: Supple, no JVD, no Thyromegaly Cardiovascular: Regular rate, Other (in A fib) Lungs: Other Abdomen: Bowel sounds, Soft, no Tender, no Hepatomegaly Extremities: Edema, no Clubbing Neurological: Other (Pt unable to participate in test) Skin: Other (+2 pitting edema), no Rash Psych/Mental Status: Other (no psychosis) - Procedures Procedures: Procedures Procedure Code Date INSERT EMERGENCY AIRWAY 43340 07/01/17 INSERTION OF ENDOTRACHEAL AIRWAY INTO TRACHEA, VIA OPENING [id number] 07/01/17 RESPIRATORY VENTILATION, GREATER THAN 96 CONSECUTIVE HOURS [id number] 07/01/17 VENT MGMT INPAT INIT 30071 07/01/17 Assessment/Plan - Problem List Patient Problems: All Active Problems WEAKESS AND POOR ORAL INTAKE (Acute) - Assessment Assessment: 1. Anemia 2. Dysphagia - Plan Plan: 1. Anemia Multifactorial especially chronic disease 2. Dysphagia NG feeding Will need G tube D/W son Phillip, he will let us know Tuesday
[2017-07-24] MEDS: methylPREDNISolone SS 40 mg Vial IVP SCH ×3 (04:53→21:40)
[2017-07-24 05:24] LABS: MANUAL DIFF REQUIRED? YES
[2017-07-24 05:28] LABS: HEMATOCRIT 25.9 % (41.0-60); HEMOGLOBIN 8.8 gm/dL (12-16); MEAN CELL VOLUME 88.3 fl (81-100); MEAN CORPUSCULAR HEMOGLOBIN 30.2 pg (27.0-31.0); MEAN CORPUSCULAR HGB CONC 34.2 pg (28.0-36.0); MEAN PLATELET VOLUME 7.3 fl; PLATELET COUNT 306 Th/cmm (150-400); RED BLOOD COUNT 2.93 Mil/cmm (3.80-5.20); RED CELL DISTRIBUTION WIDTH 15.9 % (11.5-20.0)
[2017-07-24 05:42] LABS: WHITE BLOOD COUNT 22.9 Th/cmm (4.8-10.8)
[2017-07-24 06:33] LABS: BAND NEUTROPHILE 2 % (0-10); BASOPHIL 0 % (0-3); EOSINOPHIL 0 % (0-5); LYMPHOCYTE 4 % (20-50); MONOCYTE 2 % (2-10); NEUTROPHILS 92 % (40-80); TOTAL CELLS COUNTED 100
[2017-07-24] MEDS: Budesonide 0.5 Mg/2 mL Ud HHN SCH ×2 (07:50→19:03)
[2017-07-24] MEDS: Albuterol/Ipratropium Neb 3 ML AERS HHN SCH ×3 (07:50→19:04)
[2017-07-24] MEDS: Multivitamin Tab PO SCH (08:50)
[2017-07-24] MEDS: Ferrous Sulfate 325 MG TAB PO SCH ×2 (08:50→16:33)
[2017-07-24] MEDS: Lactobacillus Rhamnosus GG 15 Billion CFU CAP.SPRINK PO SCH (08:50)
[2017-07-24] MEDS: Nicotine 14 mg/24 hr Tdm TD SCH (08:52)
[2017-07-24] MEDS: Cyproheptadine 4 mg Tab PO SCH ×2 (08:53→16:33)
--- NOTE | 2017-07-24 09:16 | General Progress Note ---
Subjective - Review of Systems Service Date: 07/24/17 Subjective: Pt seen and eval. In bed. Seen by jayson, bren, and heme onc, all of whom agree with hospice care. Dr. Montanez also discussed poor prog with son. No fevers or chills. WBC elevated, but improving. No falls. Pt went into A fib pm 07/04/16, and was transferred to ICU on digoxin. Intubated on 07/05/17. Was on Amiodarone and Levophed drip, both of which are off as of 07/06/17. She had large bm night of 07/10/17. Pt was extubated night of 07/19/17. On nasal cannula O2 at 2 L now. Awake, but very weak. Son does not want GT. However, she failed swallow eval on 07/22/17. Will talk to son again re GT. Son says he'll make up his mind by tomorrow re GT vs Hospice. She's tele status now. More awake today. Objective - Results Result Diagrams: 07/24/17 04:00 07/22/17 04:05 Recent Labs: Laboratory Last Values WBC 22.9 Th/cmm (4.8-10.8) H* 07/24/17 04:00 RBC 2.93 Mil/cmm (3.80-5.20) L 07/24/17 04:00 Hgb 8.8 gm/dL (12-16) L 07/24/17 04:00 Hct 25.9 % (41.0-60) L 07/24/17 04:00 MCV 88.3 fl (81-100) 07/24/17 04:00 MCH 30.2 pg (27.0-31.0) 07/24/17 04:00 MCHC Differential 34.2 pg (28.0-36.0) 07/24/17 04:00 RDW 15.9 % (11.5-20.0) 07/24/17 04:00 Plt Count 306 Th/cmm (150-400) 07/24/17 04:00 MPV 7.3 fl 07/24/17 04:00 Neutrophils % 92.8 % (40.0-80.0) H 07/20/17 06:00 Band Neutrophils % 2 % (0-10) 07/24/17 04:00 Lymphocytes % 2.5 % (20.0-50.0) L 07/20/17 06:00 Monocytes % 4.2 % (2.0-10.0) 07/20/17 06:00 Eosinophils % 0.3 % (0.0-5.0) 07/20/17 06:00 Basophils % 0.2 % (0.0-2.0) 07/20/17 06:00 Neutrophils (Manual) 92 % (40-80) H 07/24/17 04:00 Lymphocytes 4 % (20-50) L 07/24/17 04:00 Monocytes 2 % (2-10) 07/24/17 04:00 Eosinophils 0 % (0-5) 07/24/17 04:00 Basophils 0 % (0-3) 07/24/17 04:00 Hypochromia 1+ 07/21/17 04:30 Platelet Estimate ADEQUATE (NORMAL) 07/22/17 04:05 Platelet Morphology NORMAL (NORMAL) 07/16/17 04:35 Polychromasia 1+ 07/14/17 05:00 Ovalocytes 1+ 07/21/17 04:30 RBC Morph Micro Appear NORMAL (NORMAL) 07/16/17 04:35 Specimen Source Arterial 07/19/17 19:14 Sample Site RIGHT BRACHIAL 07/19/17 19:14 pH 7.44 (7.35-7.45) 07/19/17 19:14 pCO2 39.0 mmHg (35.0-45.0) 07/19/17 19:14 pO2 179.0 mmHg (80.0-100.0) H 07/19/17 19:14 HCO3 26.7 mEq/L (20.0-26.0) H 07/19/17 19:14 Base Excess 2.2 mEq/L (-3.0-3.0) 07/19/17 19:14 O2 Saturation 100.0 % (92.0-100.0) 07/19/17 19:14 Darius Test Positive 07/19/17 19:14 Vent Rate NA 07/18/17 10:48 Inspired O2 40 07/19/17 19:14 Tidal Volume NA 07/18/17 10:48 PEEP NA 07/18/17 10:48 Pressure (ins/psv/peep) NA 07/18/17 10:48 Critical Value SC 07/19/17 19:14 Sodium 139 mEq/L (136-145) 07/22/17 04:05 Potassium 4.0 mEq/L (3.5-5.1) 07/22/17 04:05 Chloride 105 mEq/L (98-107) 07/22/17 04:05 Carbon Dioxide 26.7 mEq/L (21.0-31.0) 07/22/17 04:05 Anion Gap 11.3 (7.0-16.0) 07/22/17 04:05 BUN 42 mg/dL (7-25) H 07/22/17 04:05 Creatinine 1.2 mg/dL (0.6-1.2) 07/22/17 04:05 Est GFR ( Amer) TNP 07/22/17 04:05 Est GFR (Non-Af Amer) TNP 07/22/17 04:05 BUN/Creatinine Ratio 35.0 07/22/17 04:05 Glucose 207 mg/dL (70-105) H 07/22/17 04:05 POC Glucose 177 MG/DL (70 - 105) H 07/14/17 11:26 Hemoglobin A1c % 5.2 % (4.0-6.0) 07/17/17 04:33 Whole Bld Lactic Acid 3.99 mmol/L (0.60-1.99) H* 07/05/17 13:00 Calcium 7.4 mg/dL (8.6-10.3) L 07/22/17 04:05 Phosphorus 1.5 mg/dL (2.5-5.0) L 07/02/17 05:20 Magnesium 1.7 mg/dL (1.9-2.7) L 07/02/17 05:20 Iron 21 07/03/17 05:48 TIBC 131 07/03/17 05:48 Iron Saturation 16 07/03/17 05:48 Unsaturated IBC 110 07/03/17 05:48 Ferritin 334 ng/mL (15-150) H 07/03/17 05:48 Total Bilirubin 0.5 mg/dL (0.3-1.0) 07/05/17 06:05 AST 16 U/L (13-39) 07/05/17 06:05 ALT 8 U/L (7-52) 07/05/17 06:05 Alkaline Phosphatase 66 U/L (34-104) 07/05/17 06:05 Troponin I 0.09 ng/mL (0.01-0.05) H* D 07/04/17 05:50 B-Natriuretic Peptide 215.0 pg/mL (5.0-100.0) H 07/01/17 14:10 Total Protein 5.6 gm/dL (6.0-8.3) L 07/05/17 06:05 Albumin 2.6 gm/dL (3.7-5.3) L 07/05/17 06:05 Globulin 3.0 gm/dL 07/05/17 06:05 Albumin/Globulin Ratio 0.9 (1.0-1.8) L 07/05/17 06:05 Triglycerides 107 mg/dL (<150) 07/04/17 05:50 Cholesterol 114 mg/dL (<200) 07/04/17 05:50 LDL Cholesterol Direct 59 mg/dL (75-193) L 07/04/17 05:50 HDL Cholesterol 31 mg/dL (23-92) 07/04/17 05:50 TSH 1.46 uIU/ml (0.34-5.60) 07/04/17 05:50 Urine Source CATH 07/05/17 18:30 Urine Color YELLOW 07/05/17 18:30 Urine Clarity CLOUDY (CLEAR) H 07/05/17 18:30 Urine pH 5.5 (4.6 - 8.0) 07/05/17 18:30 Ur Specific [place] 1.025 (1.005-1.030) 07/05/17 18:30 Urine Protein 30 mg/dL (NEGATIVE) H 07/05/17 18:30 Urine Glucose (UA) NEGATIVE mg/dL (NEGATIVE) 07/05/17 18:30 Urine Ketones TRACE mg/dL (NEGATIVE) 07/05/17 18:30 Urine Blood SMALL (NEGATIVE) H 07/05/17 18:30 Urine Nitrate NEGATIVE (NEGATIVE) 07/05/17 18:30 Urine Bilirubin NEGATIVE (NEGATIVE) 07/05/17 18:30 Urine Urobilinogen 0.2 E.U./dL (0.2 - 1.0) 07/05/17 18:30 Ur Leukocyte Esterase LARGE (NEGATIVE) H 07/05/17 18:30 Urine RBC 2-5 /hpf (0-5) 07/05/17 18:30 Urine WBC >100 /hpf (0-5) H 07/05/17 18:30 Ur Epithelial Cells FEW /lpf (FEW) 07/05/17 18:30 Urine Bacteria FEW /hpf (NONE SEEN) 07/05/17 18:30 Urine Yeast FEW /hpf (NONE SEEN) H 07/05/17 18:30 Stool Occult Blood POSITIVE (NEGATIVE) H 07/13/17 19:00 Vancomycin Trough 23.1 ug/mL (5-10) H 07/22/17 08:00 Random Vancomycin 23.8 ug/mL (5.0-40.0) 07/24/17 04:00 - Physical Exam Vitals and I&O: Vital Signs Temp 97.0 F 07/24/17 04:00 Pulse 86 07/24/17 08:53 Resp 20 07/24/17 08:05 BP 134/61 07/24/17 08:53 Pulse Ox 100 07/24/17 08:05 Intake & Output 07/23/17 07/24/17 07/24/17 18:59 06:59 18:59 Intake Total 1294.75 1318.583 Output Total 1800 1400 Balance -505.25 -81.417 Weight (lbs) 68.039 kg 65.771 kg Intake: Intake, IV Amount 444.75 708.583 D5-0.45NS 1,000 ml @ 40 703.333 mls/hr IV .Q24H [facility] Rx#: [id number] Piperacillin Sodium/ 200 Tazobact 2.25 gm In Sodium Chloride 0.9% 100 ml @ 100 mls/hr IV Q6HR [facility] Rx#:[id number] Vancomycin HCl 1 gm In 244.75 5.25 Sodium Chloride 0.9% 250 ml @ 165 mls/hr IV 0900 [facility] Rx#:[id number] Tube Feeding 600 550 Other 250 60 Output: Urine 1800 1400 Other: # Bowel Movements 0 Weight Source Patient stated Bedscale Active Medications: Current Medications Acetaminophen (Tylenol) 650 mg PO Q4H PRN PRN Reason: Fever > 101 Stop: 08/30/17 22:06 Last Admin: 07/23/17 10:17 Dose: 650 mg Albuterol/Ipratropium (Duoneb Neb) 3 ml HHN Q4HRT PRN PRN Reason: Wheezing Stop: 08/30/17 22:13 Last Admin: 07/22/17 18:56 Dose: 3 ml Albuterol/Ipratropium (Duoneb Neb) 3 ml HHN Q6HRT [facility] Stop: 08/31/17 00:59 Last Admin: 07/24/17 07:50 Dose: 3 ml Ascorbic Acid (Vitamin C) 500 mg PO DAILY [facility] Stop: 08/31/17 08:59 Last Admin: 07/24/17 08:50 Dose: 500 mg Baclofen (Lioresal) 5 mg PO TID [facility] Stop: 09/06/17 08:59 Last Admin: 07/24/17 08:50 Dose: 5 mg Bisacodyl (Dulcolax 10 Mg Supp) 10 mg RC DAILY PRN PRN Reason: BOWEL CARE MANAGEMENT Stop: 09/20/17 09:14 Budesonide (Pulmicort) 0.5 mg HHN BIDRT [facility] Stop: 08/31/17 18:59 Last Admin: 07/24/17 07:50 Dose: 0.5 mg Cyproheptadine HCl (Periactin) 4 mg PO BID [facility] Stop: 08/31/17 08:59 Last Admin: 07/24/17 08:53 Dose: 4 mg Docusate Sodium (Colace) 100 mg PO BID [facility] Stop: 08/31/17 08:59 Last Admin: 07/24/17 08:50 Dose: 100 mg Ferrous Sulfate (Iron) 325 mg PO BID [facility] Stop: 08/31/17 08:59 Last Admin: 07/24/17 08:50 Dose: 325 mg Folic Acid (Folate) 1 mg PO DAILY [facility] Stop: 08/31/17 08:59 Last Admin: 07/24/17 08:50 Dose: 1 mg Furosemide (Lasix) 20 mg IVP DAILY [facility] Stop: 09/16/17 11:59 Last Admin: 07/24/17 08:50 Dose: 20 mg Norepinephrine Bitartrate 4 mg (/ Sodium Chloride) 254 mls @ 0 mls/hr IV TITR [facility]; Titrate PRN Reason: Protocol Stop: 09/03/17 16:29 Dextrose/Sodium Chloride (D5-0.45ns) 1,000 mls @ 40 mls/hr IV .Q24H [facility] Stop: 09/21/17 10:38 Last Infusion: 07/24/17 06:00 Dose: 40 mls/hr Lactobacillus Rhamnosus (Culturelle 15b) 1 each PO DAILY [facility] Stop: 09/01/17 08:59 Last Admin: 07/24/17 08:50 Dose: 1 each Lactulose (Cephulac) 20 gm PO QID PRN PRN Reason: Constipation Stop: 08/30/17 22:18 Last Admin: 07/17/17 17:50 Dose: 20 gm Lorazepam (Ativan) 1 mg IVP Q4HR PRN; Protocol PRN Reason: Anxiety Stop: 09/04/17 08:31 Last Admin: 07/18/17 21:49 Dose: 1 mg Losartan Potassium (Cozaar) 100 mg PO DAILY [facility] Stop: 09/22/17 08:59 Last Admin: 07/24/17 08:53 Dose: 100 mg Methylprednisolone Sodium Succinate (Solu-Medrol) 40 mg IVP Q8HR [facility] Stop: 09/09/17 20:59 Last Admin: 07/24/17 04:53 Dose: 40 mg Miscellaneous (Probiotic Screen) 1 ea MC PRN PRN PRN Reason: PROTOCOL Stop: 09/01/17 08:44 Multivitamins/Vitamin C (Theragran) 1 tab PO DAILY [facility] Stop: 08/31/17 08:59 Last Admin: 07/24/17 08:50 Dose: 1 tab Nicotine (Nicotine Transdermal System) 14 mg TD DAILY [facility] Stop: 09/04/17 08:59 Last Admin: 07/24/17 08:52 Dose: 14 mg Pantoprazole Sodium (Protonix) 40 mg IVP BID [facility] Stop: 09/13/17 08:59 Last Admin: 07/24/17 08:50 Dose: 40 mg General: Cooperative, Other (awake now. NAD) HEENT: Atraumatic, Other Neck: Supple, no JVD, no Thyromegaly Cardiovascular: Regular rate, Other (in A fib) Lungs: Other Abdomen: Bowel sounds, Soft, no Tender, no Hepatomegaly Extremities: Edema, no Clubbing Neurological: Other (Pt unable to participate in test) Skin: Other (+2 pitting edema), no Rash Psych/Mental Status: Other (no psychosis) - Procedures Procedures: Procedures Procedure Code Date INSERT EMERGENCY AIRWAY 02735 07/01/17 INSERTION OF ENDOTRACHEAL AIRWAY INTO TRACHEA, VIA OPENING [id number] 07/01/17 RESPIRATORY VENTILATION, GREATER THAN 96 CONSECUTIVE HOURS [id number] 07/01/17 VENT MGMT INPAT INIT DAY 61146 07/01/17 Assessment/Plan - Problem List Patient Problems: All Active Problems WEAKESS AND POOR ORAL INTAKE (Acute) - Assessment Assessment: Septic shock A fib with RVR Fail to thrive Stage 4 lung ca Sepsis due to E Coli UTI ME Ch pain syn Anemia of ch ill Hypernatremia Hypokalemia Type 2 WA A fib - Plan Plan: Pt holds a poor progonosis. Been trying to communicate poor prognosis to the son. He wants "everything done. " Cardio, Pulm, and Heme Onc seeing pt, all of whom agree with comfort care/ hospice. On IV Zosyn and Vanco. Has been on Amiodarone and Levphed drip in ICU-now off as off 07/06/17. Intubated on 07/05/17; extubated on night of 07/19/17 Elec corrected. I's and O's reviewed. Pt holds a poor prognosis. Son still wants everything done. No drips. Pt responsive. Weaning tried on 07/10/17, but could not tolerate it. But ultimately extubated on 07/19/17. Hgb dropping. Holding Xarelto as of 07/11/17. Checked stool OB times 2-both postive. GI on the case. FU on CBC and Chem 7. Again, advised son of the grave prognosis and the fact that pt has poor quality of life and it will not improve. He still wants "everything done." As of 07/18/17, she was on CPAP, then extubated night on 07/19/17. Consider swallow eval tomorrow when she's more alert. GI following for stool OB times 2. However, pt too unstable for procedure per GI. SNF eval. Son doesn't want GT. Pt failed swallow eval on 07/22/17. She's now tele status. Now son says he'll make up his mind by tomorrow re hospice vs GT. Nutritional Asmnt/Malnutr-PDOC - Dietary Evaluation Malnutrition Findings (Please click <Entered> for more info): Nutritional Asmnt/Malnutrition Start: 07/03/17 13: 22 Text: Status: Complete Freq: Document 07/03/17 13:22 URBAN (Rec: 07/03/17 13:35 URBAN [email or web address]) Nutritional Asmnt/Malnutrition Patient General Information Nutritional Screening Consult Diagnosis UTI, Failure to thrive, hypokalemia Pertinent Medical Hx/Surgical Hx CAD, HTN, COPD, Stage 4 lung cancer, peripheral neuropathy, constipation, GERD, anxiety, low back pain Subjective Information Consult received for Failure to Thrive. Current Diet Order/ Nutrition Support Regular diet, pureed with mechaical soft Patient / S.O Not Indicated Pertinent Medications Vitamin C, dulcolax, D5-0.45 NS @ 75 ml/hr, colace, iron, folate, lactulose, theragran Pertinent Labs (07/02) P 1.5, Mg 1.7, albumin 2.9 Nutritional Hx/Data Height 1.6 m Height (Calculated Centimeters) 160.0 Current Weight (lbs) 54.885 kg Weight (Calculated Kilograms) 54.9 Weight (Calculated Grams) 51894.7 [place] Body Weight 115 % [place] Body Weight 105 Body Mass Index (BMI) 21.4 Recent Weight Change No Weight Status Approriate GI Symptoms GI Symptoms None Last BM Prior to admission Difficult in: None Food Allergies No Cultural/Ethnic/Sabianism Belief None indicated Skin Integrity/Comment: Pradeep Cook Current %PO Poor (25-49%) Estimated Nutritional Goals BEE in Kcals: Using Current wt Calories/Kcals/Kg 55kg CBW (25-30kcal/kg) Kcals Calculated 2477-8352 kcal/day Protein: Using Current wt Protein g/k-1.2 gm/kg Protein Calculated 55-65 gm/day Fluid: ml 7019-0718 ml/day (1 ml/kcal) Nutritional Problem 2. Problem Problem Inadequate oral intake related to Etiology poor appetite aeb Signs/Symptoms: meeting <75% of estimated nutrient needs 1. Problem Problem Altered nutrition related lab values related to Etiology electrolyte imbalance aeb Signs/Symptoms: P 1.5, Mg 1.7 Intervention/Recommendation Comments 1. Continue pureed diet as tolerated by patient. 2. RN To assist with feedings and encourage oral intake. 3. Consider adding Boost plus between meals to optimize calorie and protein intake. Expected Outcomes/Goals Expected Outcomes/Goals Oral intake to meet >75% of needs, weight stable, nutrition labs WNL F/U MR 07/06-
[2017-07-24] MEDS: D5-0.45NS 1,000 ML IV SCH (10:49)
--- NOTE | 2017-07-24 10:59 | GI Progress Note ---
Subjective - Review of Systems Service Date: 07/24/17 Events since last encounter: No events Objective - Results Result Diagrams: 07/24/17 04:00 07/22/17 04:05 Recent Labs: Laboratory Last Values WBC 22.9 Th/cmm (4.8-10.8) H* 07/24/17 04:00 RBC 2.93 Mil/cmm (3.80-5.20) L 07/24/17 04:00 Hgb 8.8 gm/dL (12-16) L 07/24/17 04:00 Hct 25.9 % (41.0-60) L 07/24/17 04:00 MCV 88.3 fl (81-100) 07/24/17 04:00 MCH 30.2 pg (27.0-31.0) 07/24/17 04:00 MCHC Differential 34.2 pg (28.0-36.0) 07/24/17 04:00 RDW 15.9 % (11.5-20.0) 07/24/17 04:00 Plt Count 306 Th/cmm (150-400) 07/24/17 04:00 MPV 7.3 fl 07/24/17 04:00 Neutrophils % 92.8 % (40.0-80.0) H 07/20/17 06:00 Band Neutrophils % 2 % (0-10) 07/24/17 04:00 Lymphocytes % 2.5 % (20.0-50.0) L 07/20/17 06:00 Monocytes % 4.2 % (2.0-10.0) 07/20/17 06:00 Eosinophils % 0.3 % (0.0-5.0) 07/20/17 06:00 Basophils % 0.2 % (0.0-2.0) 07/20/17 06:00 Neutrophils (Manual) 92 % (40-80) H 07/24/17 04:00 Lymphocytes 4 % (20-50) L 07/24/17 04:00 Monocytes 2 % (2-10) 07/24/17 04:00 Eosinophils 0 % (0-5) 07/24/17 04:00 Basophils 0 % (0-3) 07/24/17 04:00 Hypochromia 1+ 07/21/17 04:30 Platelet Estimate ADEQUATE (NORMAL) 07/22/17 04:05 Platelet Morphology NORMAL (NORMAL) 07/16/17 04:35 Polychromasia 1+ 07/14/17 05:00 Ovalocytes 1+ 07/21/17 04:30 RBC Morph Micro Appear NORMAL (NORMAL) 07/16/17 04:35 Specimen Source Arterial 07/19/17 19:14 Sample Site RIGHT BRACHIAL 07/19/17 19:14 pH 7.44 (7.35-7.45) 07/19/17 19:14 pCO2 39.0 mmHg (35.0-45.0) 07/19/17 19:14 pO2 179.0 mmHg (80.0-100.0) H 07/19/17 19:14 HCO3 26.7 mEq/L (20.0-26.0) H 07/19/17 19:14 Base Excess 2.2 mEq/L (-3.0-3.0) 07/19/17 19:14 O2 Saturation 100.0 % (92.0-100.0) 07/19/17 19:14 Darius Test Positive 07/19/17 19:14 Vent Rate NA 07/18/17 10:48 Inspired O2 40 07/19/17 19:14 Tidal Volume NA 07/18/17 10:48 PEEP NA 07/18/17 10:48 Pressure (ins/psv/peep) NA 07/18/17 10:48 Critical Value SC 07/19/17 19:14 Sodium 139 mEq/L (136-145) 07/22/17 04:05 Potassium 4.0 mEq/L (3.5-5.1) 07/22/17 04:05 Chloride 105 mEq/L (98-107) 07/22/17 04:05 Carbon Dioxide 26.7 mEq/L (21.0-31.0) 07/22/17 04:05 Anion Gap 11.3 (7.0-16.0) 07/22/17 04:05 BUN 42 mg/dL (7-25) H 07/22/17 04:05 Creatinine 1.2 mg/dL (0.6-1.2) 07/22/17 04:05 Est GFR ( Amer) TNP 07/22/17 04:05 Est GFR (Non-Af Amer) TNP 07/22/17 04:05 BUN/Creatinine Ratio 35.0 07/22/17 04:05 Glucose 207 mg/dL (70-105) H 07/22/17 04:05 POC Glucose 177 MG/DL (70 - 105) H 07/14/17 11:26 Hemoglobin A1c % 5.2 % (4.0-6.0) 07/17/17 04:33 Whole Bld Lactic Acid 3.99 mmol/L (0.60-1.99) H* 07/05/17 13:00 Calcium 7.4 mg/dL (8.6-10.3) L 07/22/17 04:05 Phosphorus 1.5 mg/dL (2.5-5.0) L 07/02/17 05:20 Magnesium 1.7 mg/dL (1.9-2.7) L 07/02/17 05:20 Iron 21 07/03/17 05:48 TIBC 131 07/03/17 05:48 Iron Saturation 16 07/03/17 05:48 Unsaturated IBC 110 07/03/17 05:48 Ferritin 334 ng/mL (15-150) H 07/03/17 05:48 Total Bilirubin 0.5 mg/dL (0.3-1.0) 07/05/17 06:05 AST 16 U/L (13-39) 07/05/17 06:05 ALT 8 U/L (7-52) 07/05/17 06:05 Alkaline Phosphatase 66 U/L (34-104) 07/05/17 06:05 Troponin I 0.09 ng/mL (0.01-0.05) H* D 07/04/17 05:50 B-Natriuretic Peptide 215.0 pg/mL (5.0-100.0) H 07/01/17 14:10 Total Protein 5.6 gm/dL (6.0-8.3) L 07/05/17 06:05 Albumin 2.6 gm/dL (3.7-5.3) L 07/05/17 06:05 Globulin 3.0 gm/dL 07/05/17 06:05 Albumin/Globulin Ratio 0.9 (1.0-1.8) L 07/05/17 06:05 Triglycerides 107 mg/dL (<150) 07/04/17 05:50 Cholesterol 114 mg/dL (<200) 07/04/17 05:50 LDL Cholesterol Direct 59 mg/dL (75-193) L 07/04/17 05:50 HDL Cholesterol 31 mg/dL (23-92) 07/04/17 05:50 TSH 1.46 uIU/ml (0.34-5.60) 07/04/17 05:50 Urine Source CATH 07/05/17 18:30 Urine Color YELLOW 07/05/17 18:30 Urine Clarity CLOUDY (CLEAR) H 07/05/17 18:30 Urine pH 5.5 (4.6 - 8.0) 07/05/17 18:30 Ur Specific [place] 1.025 (1.005-1.030) 07/05/17 18:30 Urine Protein 30 mg/dL (NEGATIVE) H 07/05/17 18:30 Urine Glucose (UA) NEGATIVE mg/dL (NEGATIVE) 07/05/17 18:30 Urine Ketones TRACE mg/dL (NEGATIVE) 07/05/17 18:30 Urine Blood SMALL (NEGATIVE) H 07/05/17 18:30 Urine Nitrate NEGATIVE (NEGATIVE) 07/05/17 18:30 Urine Bilirubin NEGATIVE (NEGATIVE) 07/05/17 18:30 Urine Urobilinogen 0.2 E.U./dL (0.2 - 1.0) 07/05/17 18:30 Ur Leukocyte Esterase LARGE (NEGATIVE) H 07/05/17 18:30 Urine RBC 2-5 /hpf (0-5) 07/05/17 18:30 Urine WBC >100 /hpf (0-5) H 07/05/17 18:30 Ur Epithelial Cells FEW /lpf (FEW) 07/05/17 18:30 Urine Bacteria FEW /hpf (NONE SEEN) 07/05/17 18:30 Urine Yeast FEW /hpf (NONE SEEN) H 07/05/17 18:30 Stool Occult Blood POSITIVE (NEGATIVE) H 07/13/17 19:00 Vancomycin Trough 23.1 ug/mL (5-10) H 07/22/17 08:00 Random Vancomycin 23.8 ug/mL (5.0-40.0) 07/24/17 04:00 - Physical Exam Vitals and I&O: Vital Signs Temp 98.1 F 07/24/17 08:00 Pulse 91 07/24/17 10:00 Resp 21 07/24/17 10:00 BP 133/70 07/24/17 10:00 Pulse Ox 99 07/24/17 10:00 Intake & Output 07/23/17 07/24/17 07/24/17 18:59 06:59 18:59 Intake Total 1294.75 1318.583 Output Total 1800 1400 Balance -505.25 -81.417 Weight (lbs) 68.039 kg 65.771 kg Intake: Intake, IV Amount 444.75 708.583 D5-0.45NS 1,000 ml @ 40 703.333 mls/hr IV .Q24H [facility] Rx#: [id number] Piperacillin Sodium/ 200 Tazobact 2.25 gm In Sodium Chloride 0.9% 100 ml @ 100 mls/hr IV Q6HR [facility] Rx#:[id number] Vancomycin HCl 1 gm In 244.75 5.25 Sodium Chloride 0.9% 250 ml @ 165 mls/hr IV 0900 [facility] Rx#:[id number] Tube Feeding 600 550 Other 250 60 Output: Urine 1800 1400 Other: # Bowel Movements 0 Weight Source Patient stated Bedscale Active Medications: Current Medications Acetaminophen (Tylenol) 650 mg PO Q4H PRN PRN Reason: Fever > 101 Stop: 08/30/17 22:06 Last Admin: 07/23/17 10:17 Dose: 650 mg Albuterol/Ipratropium (Duoneb Neb) 3 ml HHN Q4HRT PRN PRN Reason: Wheezing Stop: 08/30/17 22:13 Last Admin: 07/22/17 18:56 Dose: 3 ml Albuterol/Ipratropium (Duoneb Neb) 3 ml HHN Q6HRT [facility] Stop: 08/31/17 00:59 Last Admin: 07/24/17 07:50 Dose: 3 ml Ascorbic Acid (Vitamin C) 500 mg PO DAILY [facility] Stop: 08/31/17 08:59 Last Admin: 07/24/17 08:50 Dose: 500 mg Baclofen (Lioresal) 5 mg PO TID [facility] Stop: 09/06/17 08:59 Last Admin: 07/24/17 08:50 Dose: 5 mg Bisacodyl (Dulcolax 10 Mg Supp) 10 mg RC DAILY PRN PRN Reason: BOWEL CARE MANAGEMENT Stop: 09/20/17 09:14 Budesonide (Pulmicort) 0.5 mg HHN BIDRT [facility] Stop: 08/31/17 18:59 Last Admin: 07/24/17 07:50 Dose: 0.5 mg Cyproheptadine HCl (Periactin) 4 mg PO BID [facility] Stop: 08/31/17 08:59 Last Admin: 07/24/17 08:53 Dose: 4 mg Docusate Sodium (Colace) 100 mg PO BID [facility] Stop: 08/31/17 08:59 Last Admin: 07/24/17 08:50 Dose: 100 mg Ferrous Sulfate (Iron) 325 mg PO BID [facility] Stop: 08/31/17 08:59 Last Admin: 07/24/17 08:50 Dose: 325 mg Folic Acid (Folate) 1 mg PO DAILY [facility] Stop: 08/31/17 08:59 Last Admin: 07/24/17 08:50 Dose: 1 mg Furosemide (Lasix) 20 mg IVP DAILY [facility] Stop: 09/16/17 11:59 Last Admin: 07/24/17 08:50 Dose: 20 mg Norepinephrine Bitartrate 4 mg (/ Sodium Chloride) 254 mls @ 0 mls/hr IV TITR [facility]; Titrate PRN Reason: Protocol Stop: 09/03/17 16:29 Dextrose/Sodium Chloride (D5-0.45ns) 1,000 mls @ 20 mls/hr IV .Q24H [facility] Stop: 09/22/17 09:16 Last Admin: 07/24/17 10:49 Dose: 20 mls/hr Lactobacillus Rhamnosus (Culturelle 15b) 1 each PO DAILY [facility] Stop: 09/01/17 08:59 Last Admin: 07/24/17 08:50 Dose: 1 each Lactulose (Cephulac) 20 gm PO QID PRN PRN Reason: Constipation Stop: 08/30/17 22:18 Last Admin: 07/17/17 17:50 Dose: 20 gm Lorazepam (Ativan) 1 mg IVP Q4HR PRN; Protocol PRN Reason: Anxiety Stop: 09/04/17 08:31 Last Admin: 07/18/17 21:49 Dose: 1 mg Losartan Potassium (Cozaar) 100 mg PO DAILY [facility] Stop: 09/22/17 08:59 Last Admin: 07/24/17 08:53 Dose: 100 mg Methylprednisolone Sodium Succinate (Solu-Medrol) 40 mg IVP Q8HR [facility] Stop: 09/09/17 20:59 Last Admin: 07/24/17 04:53 Dose: 40 mg Miscellaneous (Probiotic Screen) 1 ea MC PRN PRN PRN Reason: PROTOCOL Stop: 09/01/17 08:44 Multivitamins/Vitamin C (Theragran) 1 tab PO DAILY [facility] Stop: 08/31/17 08:59 Last Admin: 07/24/17 08:50 Dose: 1 tab Nicotine (Nicotine Transdermal System) 14 mg TD DAILY [facility] Stop: 09/04/17 08:59 Last Admin: 07/24/17 08:52 Dose: 14 mg Pantoprazole Sodium (Protonix) 40 mg IVP BID [facility] Stop: 09/13/17 08:59 Last Admin: 07/24/17 08:50 Dose: 40 mg General: Mild distress, Other (awake now. NAD) Neck: Supple, no JVD, no Thyromegaly Cardiovascular: Regular rate, Normal S1, Normal S2, Other (in A fib) Lungs: Other Abdomen: Bowel sounds, Soft, no Tender, no Hepatomegaly Extremities: no Clubbing Neurological: Other (Pt unable to participate in test) Skin: no Rash - Procedures Procedures: Procedures Procedure Code Date INSERT EMERGENCY AIRWAY 52993 07/01/17 INSERTION OF ENDOTRACHEAL AIRWAY INTO TRACHEA, VIA OPENING [id number] 07/01/17 RESPIRATORY VENTILATION, GREATER THAN 96 CONSECUTIVE HOURS [id number] 07/01/17 VENT MGMT INPAT INIT 40892 07/01/17 Assessment/Plan - Problem List Patient Problems: All Active Problems WEAKESS AND POOR ORAL INTAKE (Acute) - Assessment Assessment: 1. Anemia 2. Dysphagia - Plan Plan: 1. Anemia Multifactorial especially chronic disease( lung cancer) Cont to monitor 2. Dysphagia NG feeding Will need G tube D/W son Phillip yesterday , he will let us know Tuesday
--- NOTE | 2017-07-24 15:55 | Infectious Disease Prog Note ---
Infectious Disease Subjective - Review of Systems Service Date: 07/24/17 Subjective: There is no new change. Patient remains off vent. Failed swallow eval. Family refused peg placement. Low grade fever. leukocytosis is worse today, likely reactive. Infectious Disease Objective - Results Result Diagrams: 07/24/17 04:00 07/22/17 04:05 Recent Labs: Laboratory Last Values WBC 22.9 Th/cmm (4.8-10.8) H* 07/24/17 04:00 RBC 2.93 Mil/cmm (3.80-5.20) L 07/24/17 04:00 Hgb 8.8 gm/dL (12-16) L 07/24/17 04:00 Hct 25.9 % (41.0-60) L 07/24/17 04:00 MCV 88.3 fl (81-100) 07/24/17 04:00 MCH 30.2 pg (27.0-31.0) 07/24/17 04:00 MCHC Differential 34.2 pg (28.0-36.0) 07/24/17 04:00 RDW 15.9 % (11.5-20.0) 07/24/17 04:00 Plt Count 306 Th/cmm (150-400) 07/24/17 04:00 MPV 7.3 fl 07/24/17 04:00 Neutrophils % 92.8 % (40.0-80.0) H 07/20/17 06:00 Band Neutrophils % 2 % (0-10) 07/24/17 04:00 Lymphocytes % 2.5 % (20.0-50.0) L 07/20/17 06:00 Monocytes % 4.2 % (2.0-10.0) 07/20/17 06:00 Eosinophils % 0.3 % (0.0-5.0) 07/20/17 06:00 Basophils % 0.2 % (0.0-2.0) 07/20/17 06:00 Neutrophils (Manual) 92 % (40-80) H 07/24/17 04:00 Lymphocytes 4 % (20-50) L 07/24/17 04:00 Monocytes 2 % (2-10) 07/24/17 04:00 Eosinophils 0 % (0-5) 07/24/17 04:00 Basophils 0 % (0-3) 07/24/17 04:00 Hypochromia 1+ 07/21/17 04:30 Platelet Estimate ADEQUATE (NORMAL) 07/22/17 04:05 Platelet Morphology NORMAL (NORMAL) 07/16/17 04:35 Polychromasia 1+ 07/14/17 05:00 Ovalocytes 1+ 07/21/17 04:30 RBC Morph Micro Appear NORMAL (NORMAL) 07/16/17 04:35 Specimen Source Arterial 07/19/17 19:14 Sample Site RIGHT BRACHIAL 07/19/17 19:14 pH 7.44 (7.35-7.45) 07/19/17 19:14 pCO2 39.0 mmHg (35.0-45.0) 07/19/17 19:14 pO2 179.0 mmHg (80.0-100.0) H 07/19/17 19:14 HCO3 26.7 mEq/L (20.0-26.0) H 07/19/17 19:14 Base Excess 2.2 mEq/L (-3.0-3.0) 07/19/17 19:14 O2 Saturation 100.0 % (92.0-100.0) 07/19/17 19:14 Darius Test Positive 07/19/17 19:14 Vent Rate NA 07/18/17 10:48 Inspired O2 40 07/19/17 19:14 Tidal Volume NA 07/18/17 10:48 PEEP NA 07/18/17 10:48 Pressure (ins/psv/peep) NA 07/18/17 10:48 Critical Value SC 07/19/17 19:14 Sodium 139 mEq/L (136-145) 07/22/17 04:05 Potassium 4.0 mEq/L (3.5-5.1) 07/22/17 04:05 Chloride 105 mEq/L (98-107) 07/22/17 04:05 Carbon Dioxide 26.7 mEq/L (21.0-31.0) 07/22/17 04:05 Anion Gap 11.3 (7.0-16.0) 07/22/17 04:05 BUN 42 mg/dL (7-25) H 07/22/17 04:05 Creatinine 1.2 mg/dL (0.6-1.2) 07/22/17 04:05 Est GFR ( Amer) TNP 07/22/17 04:05 Est GFR (Non-Af Amer) TNP 07/22/17 04:05 BUN/Creatinine Ratio 35.0 07/22/17 04:05 Glucose 207 mg/dL (70-105) H 07/22/17 04:05 POC Glucose 177 MG/DL (70 - 105) H 07/14/17 11:26 Hemoglobin A1c % 5.2 % (4.0-6.0) 07/17/17 04:33 Whole Bld Lactic Acid 3.99 mmol/L (0.60-1.99) H* 07/05/17 13:00 Calcium 7.4 mg/dL (8.6-10.3) L 07/22/17 04:05 Phosphorus 1.5 mg/dL (2.5-5.0) L 07/02/17 05:20 Magnesium 1.7 mg/dL (1.9-2.7) L 07/02/17 05:20 Iron 21 07/03/17 05:48 TIBC 131 07/03/17 05:48 Iron Saturation 16 07/03/17 05:48 Unsaturated IBC 110 07/03/17 05:48 Ferritin 334 ng/mL (15-150) H 07/03/17 05:48 Total Bilirubin 0.5 mg/dL (0.3-1.0) 07/05/17 06:05 AST 16 U/L (13-39) 07/05/17 06:05 ALT 8 U/L (7-52) 07/05/17 06:05 Alkaline Phosphatase 66 U/L (34-104) 07/05/17 06:05 Troponin I 0.09 ng/mL (0.01-0.05) H* D 07/04/17 05:50 B-Natriuretic Peptide 215.0 pg/mL (5.0-100.0) H 07/01/17 14:10 Total Protein 5.6 gm/dL (6.0-8.3) L 07/05/17 06:05 Albumin 2.6 gm/dL (3.7-5.3) L 07/05/17 06:05 Globulin 3.0 gm/dL 07/05/17 06:05 Albumin/Globulin Ratio 0.9 (1.0-1.8) L 07/05/17 06:05 Triglycerides 107 mg/dL (<150) 07/04/17 05:50 Cholesterol 114 mg/dL (<200) 07/04/17 05:50 LDL Cholesterol Direct 59 mg/dL (75-193) L 07/04/17 05:50 HDL Cholesterol 31 mg/dL (23-92) 07/04/17 05:50 TSH 1.46 uIU/ml (0.34-5.60) 07/04/17 05:50 Urine Source CATH 07/05/17 18:30 Urine Color YELLOW 07/05/17 18:30 Urine Clarity CLOUDY (CLEAR) H 07/05/17 18:30 Urine pH 5.5 (4.6 - 8.0) 07/05/17 18:30 Ur Specific [place] 1.025 (1.005-1.030) 07/05/17 18:30 Urine Protein 30 mg/dL (NEGATIVE) H 07/05/17 18:30 Urine Glucose (UA) NEGATIVE mg/dL (NEGATIVE) 07/05/17 18:30 Urine Ketones TRACE mg/dL (NEGATIVE) 07/05/17 18:30 Urine Blood SMALL (NEGATIVE) H 07/05/17 18:30 Urine Nitrate NEGATIVE (NEGATIVE) 07/05/17 18:30 Urine Bilirubin NEGATIVE (NEGATIVE) 07/05/17 18:30 Urine Urobilinogen 0.2 E.U./dL (0.2 - 1.0) 07/05/17 18:30 Ur Leukocyte Esterase LARGE (NEGATIVE) H 07/05/17 18:30 Urine RBC 2-5 /hpf (0-5) 07/05/17 18:30 Urine WBC >100 /hpf (0-5) H 07/05/17 18:30 Ur Epithelial Cells FEW /lpf (FEW) 07/05/17 18:30 Urine Bacteria FEW /hpf (NONE SEEN) 07/05/17 18:30 Urine Yeast FEW /hpf (NONE SEEN) H 07/05/17 18:30 Stool Occult Blood POSITIVE (NEGATIVE) H 07/13/17 19:00 Vancomycin Trough 23.1 ug/mL (5-10) H 07/22/17 08:00 Random Vancomycin 23.8 ug/mL (5.0-40.0) 07/24/17 04:00 - Physical Exam Vitals and I&O: Vital Signs Temp 98.3 F 07/24/17 12:00 Pulse 88 07/24/17 14:00 Resp 30 07/24/17 14:00 BP 129/68 07/24/17 14:00 Pulse Ox 100 07/24/17 14:00 Intake & Output 07/23/17 07/24/17 07/24/17 18:59 06:59 18:59 Intake Total 1294.75 1318.583 Output Total 1800 1400 Balance -505.25 -81.417 Weight (lbs) 68.039 kg 65.771 kg Intake: Intake, IV Amount 444.75 708.583 D5-0.45NS 1,000 ml @ 40 703.333 mls/hr IV .Q24H [facility] Rx#: [id number] Piperacillin Sodium/ 200 Tazobact 2.25 gm In Sodium Chloride 0.9% 100 ml @ 100 mls/hr IV Q6HR [facility] Rx#:[id number] Vancomycin HCl 1 gm In 244.75 5.25 Sodium Chloride 0.9% 250 ml @ 165 mls/hr IV 0900 [facility] Rx#:[id number] Tube Feeding 600 550 Other 250 60 Output: Urine 1800 1400 Other: # Bowel Movements 0 Weight Source Patient stated Bedscale Active Medications: Current Medications Acetaminophen (Tylenol) 650 mg PO Q4H PRN PRN Reason: Fever > 101 Stop: 08/30/17 22:06 Last Admin: 07/23/17 10:17 Dose: 650 mg Albuterol/Ipratropium (Duoneb Neb) 3 ml HHN Q4HRT PRN PRN Reason: Wheezing Stop: 08/30/17 22:13 Last Admin: 07/22/17 18:56 Dose: 3 ml Albuterol/Ipratropium (Duoneb Neb) 3 ml HHN Q6HRT [facility] Stop: 08/31/17 00:59 Last Admin: 07/24/17 13:37 Dose: 3 ml Ascorbic Acid (Vitamin C) 500 mg PO DAILY [facility] Stop: 08/31/17 08:59 Last Admin: 07/24/17 08:50 Dose: 500 mg Baclofen (Lioresal) 5 mg PO TID [facility] Stop: 09/06/17 08:59 Last Admin: 07/24/17 15:01 Dose: 5 mg Bisacodyl (Dulcolax 10 Mg Supp) 10 mg RC DAILY PRN PRN Reason: BOWEL CARE MANAGEMENT Stop: 09/20/17 09:14 Budesonide (Pulmicort) 0.5 mg HHN BIDRT [facility] Stop: 08/31/17 18:59 Last Admin: 07/24/17 07:50 Dose: 0.5 mg Cyproheptadine HCl (Periactin) 4 mg PO BID [facility] Stop: 08/31/17 08:59 Last Admin: 07/24/17 08:53 Dose: 4 mg Docusate Sodium (Colace) 100 mg PO BID [facility] Stop: 08/31/17 08:59 Last Admin: 07/24/17 08:50 Dose: 100 mg Ferrous Sulfate (Iron) 325 mg PO BID [facility] Stop: 08/31/17 08:59 Last Admin: 07/24/17 08:50 Dose: 325 mg Folic Acid (Folate) 1 mg PO DAILY [facility] Stop: 08/31/17 08:59 Last Admin: 07/24/17 08:50 Dose: 1 mg Furosemide (Lasix) 20 mg IVP DAILY [facility] Stop: 09/16/17 11:59 Last Admin: 07/24/17 08:50 Dose: 20 mg Norepinephrine Bitartrate 4 mg (/ Sodium Chloride) 254 mls @ 0 mls/hr IV TITR [facility]; Titrate PRN Reason: Protocol Stop: 09/03/17 16:29 Dextrose/Sodium Chloride (D5-0.45ns) 1,000 mls @ 20 mls/hr IV .Q24H [facility] Stop: 09/22/17 09:16 Last Admin: 07/24/17 10:49 Dose: 20 mls/hr Lactobacillus Rhamnosus (Culturelle 15b) 1 each PO DAILY [facility] Stop: 09/01/17 08:59 Last Admin: 07/24/17 08:50 Dose: 1 each Lactulose (Cephulac) 20 gm PO QID PRN PRN Reason: Constipation Stop: 08/30/17 22:18 Last Admin: 07/17/17 17:50 Dose: 20 gm Lorazepam (Ativan) 1 mg IVP Q4HR PRN; Protocol PRN Reason: Anxiety Stop: 09/04/17 08:31 Last Admin: 07/18/17 21:49 Dose: 1 mg Losartan Potassium (Cozaar) 50 mg PO DAILY [facility] Stop: 09/23/17 08:59 Methylprednisolone Sodium Succinate (Solu-Medrol) 40 mg IVP Q8HR [facility] Stop: 09/09/17 20:59 Last Admin: 07/24/17 12:10 Dose: 40 mg Miscellaneous (Probiotic Screen) 1 ea MC PRN PRN PRN Reason: PROTOCOL Stop: 09/01/17 08:44 Multivitamins/Vitamin C (Theragran) 1 tab PO DAILY [facility] Stop: 08/31/17 08:59 Last Admin: 07/24/17 08:50 Dose: 1 tab Nicotine (Nicotine Transdermal System) 14 mg TD DAILY [facility] Stop: 09/04/17 08:59 Last Admin: 07/24/17 08:52 Dose: 14 mg Pantoprazole Sodium (Protonix) 40 mg IVP BID [facility] Stop: 09/13/17 08:59 Last Admin: 07/24/17 08:50 Dose: 40 mg General: no acute distress, cachectic HEENT: atraumatic, normocephalic, PERRLA, EOMI Neck: supple, no thyromegaly Cardiovascular: S1S2, regular Lungs: clear to percussion, crackles Abdomen: soft, no tender, no distended, no mass Extremities: no cyanosis, no clubbing, no edema Neurological: awake, alert, oriented Skin: intact - Procedures Procedures: Procedures Procedure Code Date INSERT EMERGENCY AIRWAY 00211 07/01/17 INSERTION OF ENDOTRACHEAL AIRWAY INTO TRACHEA, VIA OPENING [id number] 07/01/17 RESPIRATORY VENTILATION, GREATER THAN 96 CONSECUTIVE HOURS [id number] 07/01/17 VENT MGMT INPAT INIT DAY 27881 07/01/17 Infectious Disease Assmt/Plan - Problem List Patient Problems: All Active Problems WEAKESS AND POOR ORAL INTAKE (Acute) - Assessment Assessment: 1. Leukocytosis. worse, suspect reactive to CA, 2. Pneumonia. trated twice. 3. Stage IV lung CA. 4. Protein calorie malnutrion, 5. VDRF. 6. ALTERED MENTAL STATUS. - Plan Plan: off antibiotics, will monitor. Poor prognosis. Nutritional Asmnt/Malnutr-PDOC - Dietary Evaluation Malnutrition Findings (Please click <Entered> for more info): Nutritional Asmnt/Malnutrition Start: 07/03/17 13: 22 Text: Status: Complete Freq: Document 07/03/17 13:22 URBAN (Rec: 07/03/17 13:35 URBAN [email or web address]- [email or web address]) Nutritional Asmnt/Malnutrition Patient General Information Nutritional Screening Consult Diagnosis UTI, Failure to thrive, hypokalemia Pertinent Medical Hx/Surgical Hx CAD, HTN, COPD, Stage 4 lung cancer, peripheral neuropathy, constipation, GERD, anxiety, low back pain Subjective Information Consult received for Failure to Thrive. Current Diet Order/ Nutrition Support Regular diet, pureed with mechaical soft Patient / S.O Not Indicated Pertinent Medications Vitamin C, dulcolax, D5-0.45 NS @ 75 ml/hr, colace, iron, folate, lactulose, theragran Pertinent Labs (07/02) P 1.5, Mg 1.7, albumin 2.9 Nutritional Hx/Data Height 1.6 m Height (Calculated Centimeters) 160.0 Current Weight (lbs) 54.885 kg Weight (Calculated Kilograms) 54.9 Weight (Calculated Grams) 97430.7 [place] Body Weight 115 % [place] Body Weight 105 Body Mass Index (BMI) 21.4 Recent Weight Change No Weight Status Approriate GI Symptoms GI Symptoms None Last BM Prior to admission Difficult in: None Food Allergies No Cultural/Ethnic/Taoism Belief None indicated Skin Integrity/Comment: Pradeep 15 Current %PO Poor (25-49%) Estimated Nutritional Goals BEE in Kcals: Using Current wt Calories/Kcals/Kg 55kg CBW (25-30kcal/kg) Kcals Calculated 9123-5789 kcal/day Protein: Using Current wt Protein g/k-1.2 gm/kg Protein Calculated 55-65 gm/day Fluid: ml 5439-8139 ml/day (1 ml/kcal) Nutritional Problem 2. Problem Problem Inadequate oral intake related to Etiology poor appetite aeb Signs/Symptoms: meeting <75% of estimated nutrient needs 1. Problem Problem Altered nutrition related lab values related to Etiology electrolyte imbalance aeb Signs/Symptoms: P 1.5, Mg 1.7 Intervention/Recommendation Comments 1. Continue pureed diet as tolerated by patient. 2. RN To assist with feedings and encourage oral intake. 3. Consider adding Boost plus between meals to optimize calorie and protein intake. Expected Outcomes/Goals Expected Outcomes/Goals Oral intake to meet >75% of needs, weight stable, nutrition labs WNL F/U MR 07/06-
[2017-07-25] MEDS: Albuterol/Ipratropium Neb 3 ML AERS HHN SCH ×4 (00:23→18:56)
[2017-07-25 04:58] LABS: EOSINOPHILE ABSOLUTE 0.1 Th/cmm (0.1-0.4); HEMATOCRIT 24.6 % (41.0-60); HEMOGLOBIN 8.3 gm/dL (12-16); LYMPHOCYTE ABSOLUTE 0.4 Th/cmm (1.5-3.0); MEAN CORPUSCULAR HEMOGLOBIN 30.2 pg (27.0-31.0); MEAN CORPUSCULAR HGB CONC 33.6 pg (28.0-36.0); MEAN PLATELET VOLUME 7.2 fl; MONOCYTE ABSOLUTE 0.3 Th/cmm (0.3-1.0); NEUTROPHILE ABSOLUTE 18.3 Th/cmm (1.8-8.0); PLATELET COUNT 301 Th/cmm (150-400); RED BLOOD COUNT 2.74 Mil/cmm (3.80-5.20); RED CELL DISTRIBUTION WIDTH 16.4 % (11.5-20.0)
[2017-07-25 05:08] LABS: ANION GAP 10.4 (7.0-16.0); BUN - UREA NITROGEN 39 mg/dL (7-25); CALCIUM SERUM 8.4 mg/dL (8.6-10.3); CARBON DIOXIDE 30.3 mEq/L (21.0-31.0); CHLORIDE 102 mEq/L (98-107); CREATININE - SERUM 1.1 mg/dL (0.6-1.2); GLUCOSE 153 mg/dL (70-105); POTASSIUM SERUM 4.7 mEq/L (3.5-5.1); SODIUM SERUM 138 mEq/L (136-145)
[2017-07-25 05:14] LABS: % EOSINOPHILS 0.3 % (0.0-5.0); % LYMPHOCYTES 2.3 % (20.0-50.0); % MONOCYTES 1.8 % (2.0-10.0); % NEUTROPHILS 95.6 % (40.0-80.0); WHITE BLOOD COUNT 19.1 Th/cmm (4.8-10.8)
[2017-07-25] MEDS: Budesonide 0.5 Mg/2 mL Ud HHN SCH ×2 (07:06→18:56)
--- NOTE | 2017-07-25 08:57 | General Progress Note ---
Subjective - Review of Systems Service Date: 07/25/17 Subjective: Pt seen and eval. In bed. Seen by jayson, bren, and heme onc, all of whom agree with hospice care. Dr. Montanez also discussed poor prog with son. No fevers or chills. WBC elevated, but improving. No falls. Pt went into A fib pm 07/04/16, and was transferred to ICU on digoxin. Intubated on 07/05/17. Was on Amiodarone and Levophed drip, both of which are off as of 07/06/17. She had large bm night of 07/10/17. Pt was extubated night of 07/19/17. On nasal cannula O2 at 2 L now. Awake, but very weak. Son does not want GT. However, she failed swallow eval on 07/22/17. Will talk to son again re GT. Son says he'll make up his mind by tomorrow re GT vs Hospice. She's tele status now. More awake today. Objective - Results Result Diagrams: 07/25/17 04:20 07/25/17 04:20 Recent Labs: Laboratory Last Values WBC 19.1 Th/cmm (4.8-10.8) H 07/25/17 04:20 RBC 2.74 Mil/cmm (3.80-5.20) L 07/25/17 04:20 Hgb 8.3 gm/dL (12-16) L 07/25/17 04:20 Hct 24.6 % (41.0-60) L 07/25/17 04:20 MCV 90.0 fl (81-100) 07/25/17 04:20 MCH 30.2 pg (27.0-31.0) 07/25/17 04:20 MCHC Differential 33.6 pg (28.0-36.0) 07/25/17 04:20 RDW 16.4 % (11.5-20.0) 07/25/17 04:20 Plt Count 301 Th/cmm (150-400) 07/25/17 04:20 MPV 7.2 fl 07/25/17 04:20 Neutrophils % 95.6 % (40.0-80.0) H 07/25/17 04:20 Band Neutrophils % 2 % (0-10) 07/24/17 04:00 Lymphocytes % 2.3 % (20.0-50.0) L 07/25/17 04:20 Monocytes % 1.8 % (2.0-10.0) L 07/25/17 04:20 Eosinophils % 0.3 % (0.0-5.0) 07/25/17 04:20 Basophils % 0.0 % (0.0-2.0) 07/25/17 04:20 Neutrophils (Manual) 92 % (40-80) H 07/24/17 04:00 Lymphocytes 4 % (20-50) L 07/24/17 04:00 Monocytes 2 % (2-10) 07/24/17 04:00 Eosinophils 0 % (0-5) 07/24/17 04:00 Basophils 0 % (0-3) 07/24/17 04:00 Hypochromia 1+ 07/21/17 04:30 Platelet Estimate ADEQUATE (NORMAL) 07/22/17 04:05 Platelet Morphology NORMAL (NORMAL) 07/16/17 04:35 Polychromasia 1+ 07/14/17 05:00 Ovalocytes 1+ 07/21/17 04:30 RBC Morph Micro Appear NORMAL (NORMAL) 07/16/17 04:35 Specimen Source Arterial 07/19/17 19:14 Sample Site RIGHT BRACHIAL 07/19/17 19:14 pH 7.44 (7.35-7.45) 07/19/17 19:14 pCO2 39.0 mmHg (35.0-45.0) 07/19/17 19:14 pO2 179.0 mmHg (80.0-100.0) H 07/19/17 19:14 HCO3 26.7 mEq/L (20.0-26.0) H 07/19/17 19:14 Base Excess 2.2 mEq/L (-3.0-3.0) 07/19/17 19:14 O2 Saturation 100.0 % (92.0-100.0) 07/19/17 19:14 Darius Test Positive 07/19/17 19:14 Vent Rate NA 07/18/17 10:48 Inspired O2 40 07/19/17 19:14 Tidal Volume NA 07/18/17 10:48 PEEP NA 07/18/17 10:48 Pressure (ins/psv/peep) NA 07/18/17 10:48 Critical Value SC 07/19/17 19:14 Sodium 138 mEq/L (136-145) 07/25/17 04:20 Potassium 4.7 mEq/L (3.5-5.1) 07/25/17 04:20 Chloride 102 mEq/L (98-107) 07/25/17 04:20 Carbon Dioxide 30.3 mEq/L (21.0-31.0) 07/25/17 04:20 Anion Gap 10.4 (7.0-16.0) 07/25/17 04:20 BUN 39 mg/dL (7-25) H 07/25/17 04:20 Creatinine 1.1 mg/dL (0.6-1.2) 07/25/17 04:20 Est GFR ( Amer) TNP 07/25/17 04:20 Est GFR (Non-Af Amer) TNP 07/25/17 04:20 BUN/Creatinine Ratio 35.5 07/25/17 04:20 Glucose 153 mg/dL (70-105) H 07/25/17 04:20 POC Glucose 177 MG/DL (70 - 105) H 07/14/17 11:26 Hemoglobin A1c % 5.2 % (4.0-6.0) 07/17/17 04:33 Whole Bld Lactic Acid 3.99 mmol/L (0.60-1.99) H* 07/05/17 13:00 Calcium 8.4 mg/dL (8.6-10.3) L 07/25/17 04:20 Phosphorus 1.5 mg/dL (2.5-5.0) L 07/02/17 05:20 Magnesium 1.7 mg/dL (1.9-2.7) L 07/02/17 05:20 Iron 21 07/03/17 05:48 TIBC 131 07/03/17 05:48 Iron Saturation 16 07/03/17 05:48 Unsaturated IBC 110 07/03/17 05:48 Ferritin 334 ng/mL (15-150) H 07/03/17 05:48 Total Bilirubin 0.5 mg/dL (0.3-1.0) 07/05/17 06:05 AST 16 U/L (13-39) 07/05/17 06:05 ALT 8 U/L (7-52) 07/05/17 06:05 Alkaline Phosphatase 66 U/L (34-104) 07/05/17 06:05 Troponin I 0.09 ng/mL (0.01-0.05) H* D 07/04/17 05:50 B-Natriuretic Peptide 215.0 pg/mL (5.0-100.0) H 07/01/17 14:10 Total Protein 5.6 gm/dL (6.0-8.3) L 07/05/17 06:05 Albumin 2.6 gm/dL (3.7-5.3) L 07/05/17 06:05 Globulin 3.0 gm/dL 07/05/17 06:05 Albumin/Globulin Ratio 0.9 (1.0-1.8) L 07/05/17 06:05 Triglycerides 107 mg/dL (<150) 07/04/17 05:50 Cholesterol 114 mg/dL (<200) 07/04/17 05:50 LDL Cholesterol Direct 59 mg/dL (75-193) L 07/04/17 05:50 HDL Cholesterol 31 mg/dL (23-92) 07/04/17 05:50 TSH 1.46 uIU/ml (0.34-5.60) 07/04/17 05:50 Urine Source CATH 07/05/17 18:30 Urine Color YELLOW 07/05/17 18:30 Urine Clarity CLOUDY (CLEAR) H 07/05/17 18:30 Urine pH 5.5 (4.6 - 8.0) 07/05/17 18:30 Ur Specific [place] 1.025 (1.005-1.030) 07/05/17 18:30 Urine Protein 30 mg/dL (NEGATIVE) H 07/05/17 18:30 Urine Glucose (UA) NEGATIVE mg/dL (NEGATIVE) 07/05/17 18:30 Urine Ketones TRACE mg/dL (NEGATIVE) 07/05/17 18:30 Urine Blood SMALL (NEGATIVE) H 07/05/17 18:30 Urine Nitrate NEGATIVE (NEGATIVE) 07/05/17 18:30 Urine Bilirubin NEGATIVE (NEGATIVE) 07/05/17 18:30 Urine Urobilinogen 0.2 E.U./dL (0.2 - 1.0) 07/05/17 18:30 Ur Leukocyte Esterase LARGE (NEGATIVE) H 07/05/17 18:30 Urine RBC 2-5 /hpf (0-5) 07/05/17 18:30 Urine WBC >100 /hpf (0-5) H 07/05/17 18:30 Ur Epithelial Cells FEW /lpf (FEW) 07/05/17 18:30 Urine Bacteria FEW /hpf (NONE SEEN) 07/05/17 18:30 Urine Yeast FEW /hpf (NONE SEEN) H 07/05/17 18:30 Stool Occult Blood POSITIVE (NEGATIVE) H 07/13/17 19:00 Vancomycin Trough 23.1 ug/mL (5-10) H 07/22/17 08:00 Random Vancomycin 23.8 ug/mL (5.0-40.0) 07/24/17 04:00 - Physical Exam Vitals and I&O: Vital Signs Temp 99.0 F 07/25/17 04:00 Pulse 89 07/25/17 07:23 Resp 26 07/25/17 07:23 BP 136/65 07/25/17 06:00 Pulse Ox 100 07/25/17 07:23 Intake & Output 07/24/17 07/25/17 07/25/17 18:59 06:59 18:59 Intake Total 680 450 Output Total 2400 1845 Balance -1720 -1395 Weight (lbs) 65.771 kg 65.771 kg Intake: Tube Feeding 600 450 Other 80 Output: Urine 2400 1845 Other: # Bowel Movements 1 1 Stool Characteristics Liquid Brown Weight Source Bedscale Bedscale Active Medications: Current Medications Acetaminophen (Tylenol) 650 mg PO Q4H PRN PRN Reason: Fever > 101 Stop: 08/30/17 22:06 Last Admin: 07/23/17 10:17 Dose: 650 mg Albuterol/Ipratropium (Duoneb Neb) 3 ml HHN Q4HRT PRN PRN Reason: Wheezing Stop: 08/30/17 22:13 Last Admin: 07/22/17 18:56 Dose: 3 ml Albuterol/Ipratropium (Duoneb Neb) 3 ml HHN Q6HRT [facility] Stop: 08/31/17 00:59 Last Admin: 07/25/17 07:05 Dose: 3 ml Ascorbic Acid (Vitamin C) 500 mg PO DAILY [facility] Stop: 08/31/17 08:59 Last Admin: 07/24/17 08:50 Dose: 500 mg Baclofen (Lioresal) 5 mg PO TID SHADI Stop: 09/06/17 08:59 Last Admin: 07/24/17 21:39 Dose: 5 mg Bisacodyl (Dulcolax 10 Mg Supp) 10 mg RC DAILY PRN PRN Reason: BOWEL CARE MANAGEMENT Stop: 09/20/17 09:14 Budesonide (Pulmicort) 0.5 mg HHN BIDRT SHADI Stop: 08/31/17 18:59 Last Admin: 07/25/17 07:06 Dose: 0.5 mg Cyproheptadine HCl (Periactin) 4 mg PO BID SHADI Stop: 08/31/17 08:59 Last Admin: 07/24/17 16:33 Dose: 4 mg Docusate Sodium (Colace) 100 mg PO BID SHADI Stop: 08/31/17 08:59 Last Admin: 07/24/17 16:33 Dose: 100 mg Ferrous Sulfate (Iron) 325 mg PO BID SHADI Stop: 08/31/17 08:59 Last Admin: 07/24/17 16:33 Dose: 325 mg Folic Acid (Folate) 1 mg PO DAILY [facility] Stop: 08/31/17 08:59 Last Admin: 07/24/17 08:50 Dose: 1 mg Furosemide (Lasix) 20 mg IVP DAILY [facility] Stop: 09/16/17 11:59 Last Admin: 07/24/17 08:50 Dose: 20 mg Norepinephrine Bitartrate 4 mg (/ Sodium Chloride) 254 mls @ 0 mls/hr IV TITR SHADI; Titrate PRN Reason: Protocol Stop: 09/03/17 16:29 Dextrose/Sodium Chloride (D5-0.45ns) 1,000 mls @ 20 mls/hr IV .Q24H SHADI Stop: 09/22/17 09:16 Last Admin: 07/24/17 10:49 Dose: 20 mls/hr Lactobacillus Rhamnosus (Culturelle 15b) 1 each PO DAILY SHADI Stop: 09/01/17 08:59 Last Admin: 07/24/17 08:50 Dose: 1 each Lactulose (Cephulac) 20 gm PO QID PRN PRN Reason: Constipation Stop: 08/30/17 22:18 Last Admin: 07/17/17 17:50 Dose: 20 gm Lorazepam (Ativan) 1 mg IVP Q4HR PRN; Protocol PRN Reason: Anxiety Stop: 09/04/17 08:31 Last Admin: 07/18/17 21:49 Dose: 1 mg Losartan Potassium (Cozaar) 50 mg PO DAILY SHADI Stop: 09/23/17 08:59 Methylprednisolone Sodium Succinate (Solu-Medrol) 40 mg IVP Q8HR SHADI Stop: 09/09/17 20:59 Last Admin: 07/24/17 21:40 Dose: 40 mg Miscellaneous (Probiotic Screen) 1 ea MC PRN PRN PRN Reason: PROTOCOL Stop: 09/01/17 08:44 Multivitamins/Vitamin C (Theragran) 1 tab PO DAILY SHADI Stop: 08/31/17 08:59 Last Admin: 07/24/17 08:50 Dose: 1 tab Nicotine (Nicotine Transdermal System) 14 mg TD DAILY SHADI Stop: 09/04/17 08:59 Last Admin: 07/24/17 08:52 Dose: 14 mg Pantoprazole Sodium (Protonix) 40 mg IVP BID SHADI Stop: 09/13/17 08:59 Last Admin: 07/24/17 16:33 Dose: 40 mg General: Mild distress, Other (awake now. NAD) HEENT: Atraumatic, Other Neck: Supple, no JVD, no Thyromegaly Cardiovascular: Regular rate, Normal S1, Normal S2, Other (in A fib) Lungs: Other Abdomen: Bowel sounds, Soft, no Tender, no Hepatomegaly Extremities: no Clubbing Neurological: Other (Pt unable to participate in test) Skin: no Rash Psych/Mental Status: Other (no psychosis) - Procedures Procedures: Procedures Procedure Code Date INSERT EMERGENCY AIRWAY 42212 07/01/17 INSERTION OF ENDOTRACHEAL AIRWAY INTO TRACHEA, VIA OPENING [id number] 07/01/17 RESPIRATORY VENTILATION, GREATER THAN 96 CONSECUTIVE HOURS [id number] 07/01/17 VENT MGMT INPAT INIT DAY 62455 07/01/17 Assessment/Plan - Problem List Patient Problems: All Active Problems WEAKESS AND POOR ORAL INTAKE (Acute) - Assessment Assessment: Septic shock A fib with RVR Fail to thrive Stage 4 lung ca Sepsis due to E Coli UTI ME Ch pain syn Anemia of ch ill Hypernatremia Hypokalemia Type 2 VA A fib - Plan Plan: Pt holds a poor progonosis. Been trying to communicate poor prognosis to the son. He wants "everything done. " Cardio, Pulm, and Heme Onc seeing pt, all of whom agree with comfort care/ hospice. On IV Zosyn and Vanco. Has been on Amiodarone and Levphed drip in ICU-now off as off 07/06/17. Intubated on 07/05/17; extubated on night of 07/19/17 Elec corrected. I's and O's reviewed. Pt holds a poor prognosis. Son still wants everything done. No drips. Pt responsive. Weaning tried on 07/10/17, but could not tolerate it. But ultimately extubated on 07/19/17. Hgb dropping. Holding Xarelto as of 07/11/17. Checked stool OB times 2-both postive. GI on the case. FU on CBC and Chem 7. Again, advised son of the grave prognosis and the fact that pt has poor quality of life and it will not improve. He still wants "everything done." As of 07/18/17, she was on CPAP, then extubated night on 07/19/17. Consider swallow eval tomorrow when she's more alert. GI following for stool OB times 2. However, pt too unstable for procedure per GI. SNF eval. Son doesn't want GT. Pt failed swallow eval on 07/22/17. She's now tele status. Now son says he'll make up his mind by tomorrow re hospice vs GT. Nutritional Asmnt/Malnutr-PDOC - Dietary Evaluation Malnutrition Findings (Please click <Entered> for more info): Nutritional Asmnt/Malnutrition Start: 07/03/17 13: 22 Text: Status: Complete Freq: Document 07/03/17 13:22 MMULN (Rec: 07/03/17 13:35 MMULHERN [email or web address]) Nutritional Asmnt/Malnutrition Patient General Information Nutritional Screening Consult Diagnosis UTI, Failure to thrive, hypokalemia Pertinent Medical Hx/Surgical Hx CAD, HTN, COPD, Stage 4 lung cancer, peripheral neuropathy, constipation, GERD, anxiety, low back pain Subjective Information Consult received for Failure to Thrive. Current Diet Order/ Nutrition Support Regular diet, pureed with mechaical soft Patient / S.O Not Indicated Pertinent Medications Vitamin C, dulcolax, D5-0.45 NS @ 75 ml/hr, colace, iron, folate, lactulose, theragran Pertinent Labs (07/02) P 1.5, Mg 1.7, albumin 2.9 Nutritional Hx/Data Height 1.6 m Height (Calculated Centimeters) 160.0 Current Weight (lbs) 54.885 kg Weight (Calculated Kilograms) 54.9 Weight (Calculated Grams) 69248.7 [place] Body Weight 115 % [place] Body Weight 105 Body Mass Index (BMI) 21.4 Recent Weight Change No Weight Status Approriate GI Symptoms GI Symptoms None Last BM Prior to admission Difficult in: None Food Allergies No Cultural/Ethnic/Sikh Belief None indicated Skin Integrity/Comment: Pradeep 15 Current %PO Poor (25-49%) Estimated Nutritional Goals BEE in Kcals: Using Current wt Calories/Kcals/Kg 55kg CBW (25-30kcal/kg) Kcals Calculated 2333-9574 kcal/day Protein: Using Current wt Protein g/k-1.2 gm/kg Protein Calculated 55-65 gm/day Fluid: ml 1476-0251 ml/day (1 ml/kcal) Nutritional Problem 2. Problem Problem Inadequate oral intake related to Etiology poor appetite aeb Signs/Symptoms: meeting <75% of estimated nutrient needs 1. Problem Problem Altered nutrition related lab values related to Etiology electrolyte imbalance aeb Signs/Symptoms: P 1.5, Mg 1.7 Intervention/Recommendation Comments 1. Continue pureed diet as tolerated by patient. 2. RN To assist with feedings and encourage oral intake. 3. Consider adding Boost plus between meals to optimize calorie and protein intake. Expected Outcomes/Goals Expected Outcomes/Goals Oral intake to meet >75% of needs, weight stable, nutrition labs WNL F/U MR 07/06-
[2017-07-25] MEDS: Nicotine 14 mg/24 hr Tdm TD SCH (09:22)
[2017-07-25] MEDS: Cyproheptadine 4 mg Tab PO SCH ×2 (09:22→17:30)
[2017-07-25] MEDS: methylPREDNISolone SS 40 mg Vial IVP SCH ×3 (09:22→20:19)
[2017-07-25] MEDS: Lactobacillus Rhamnosus GG 15 Billion CFU CAP.SPRINK PO SCH (09:23)
[2017-07-25] MEDS: Multivitamin Tab PO SCH (09:23)
[2017-07-25] MEDS: Ferrous Sulfate 325 MG TAB PO SCH ×2 (09:23→17:30)
--- NOTE | 2017-07-25 11:11 | General Progress Note ---
Subjective - Review of Systems Service Date: 07/25/17 Subjective: unresponsive, opens eyes off vent. EXTubated, NGT feeding Objective - Results Result Diagrams: 07/25/17 04:20 07/25/17 04:20 Recent Labs: Laboratory Last Values WBC 19.1 Th/cmm (4.8-10.8) H 07/25/17 04:20 RBC 2.74 Mil/cmm (3.80-5.20) L 07/25/17 04:20 Hgb 8.3 gm/dL (12-16) L 07/25/17 04:20 Hct 24.6 % (41.0-60) L 07/25/17 04:20 MCV 90.0 fl (81-100) 07/25/17 04:20 MCH 30.2 pg (27.0-31.0) 07/25/17 04:20 MCHC Differential 33.6 pg (28.0-36.0) 07/25/17 04:20 RDW 16.4 % (11.5-20.0) 07/25/17 04:20 Plt Count 301 Th/cmm (150-400) 07/25/17 04:20 MPV 7.2 fl 07/25/17 04:20 Neutrophils % 95.6 % (40.0-80.0) H 07/25/17 04:20 Band Neutrophils % 2 % (0-10) 07/24/17 04:00 Lymphocytes % 2.3 % (20.0-50.0) L 07/25/17 04:20 Monocytes % 1.8 % (2.0-10.0) L 07/25/17 04:20 Eosinophils % 0.3 % (0.0-5.0) 07/25/17 04:20 Basophils % 0.0 % (0.0-2.0) 07/25/17 04:20 Neutrophils (Manual) 92 % (40-80) H 07/24/17 04:00 Lymphocytes 4 % (20-50) L 07/24/17 04:00 Monocytes 2 % (2-10) 07/24/17 04:00 Eosinophils 0 % (0-5) 07/24/17 04:00 Basophils 0 % (0-3) 07/24/17 04:00 Hypochromia 1+ 07/21/17 04:30 Platelet Estimate ADEQUATE (NORMAL) 07/22/17 04:05 Platelet Morphology NORMAL (NORMAL) 07/16/17 04:35 Polychromasia 1+ 07/14/17 05:00 Ovalocytes 1+ 07/21/17 04:30 RBC Morph Micro Appear NORMAL (NORMAL) 07/16/17 04:35 Specimen Source Arterial 07/19/17 19:14 Sample Site RIGHT BRACHIAL 07/19/17 19:14 pH 7.44 (7.35-7.45) 07/19/17 19:14 pCO2 39.0 mmHg (35.0-45.0) 07/19/17 19:14 pO2 179.0 mmHg (80.0-100.0) H 07/19/17 19:14 HCO3 26.7 mEq/L (20.0-26.0) H 07/19/17 19:14 Base Excess 2.2 mEq/L (-3.0-3.0) 07/19/17 19:14 O2 Saturation 100.0 % (92.0-100.0) 07/19/17 19:14 Darius Test Positive 07/19/17 19:14 Vent Rate NA 07/18/17 10:48 Inspired O2 40 07/19/17 19:14 Tidal Volume NA 07/18/17 10:48 PEEP NA 07/18/17 10:48 Pressure (ins/psv/peep) NA 07/18/17 10:48 Critical Value SC 07/19/17 19:14 Sodium 138 mEq/L (136-145) 07/25/17 04:20 Potassium 4.7 mEq/L (3.5-5.1) 07/25/17 04:20 Chloride 102 mEq/L (98-107) 07/25/17 04:20 Carbon Dioxide 30.3 mEq/L (21.0-31.0) 07/25/17 04:20 Anion Gap 10.4 (7.0-16.0) 07/25/17 04:20 BUN 39 mg/dL (7-25) H 07/25/17 04:20 Creatinine 1.1 mg/dL (0.6-1.2) 07/25/17 04:20 Est GFR ( Amer) TNP 07/25/17 04:20 Est GFR (Non-Af Amer) TNP 07/25/17 04:20 BUN/Creatinine Ratio 35.5 07/25/17 04:20 Glucose 153 mg/dL (70-105) H 07/25/17 04:20 POC Glucose 177 MG/DL (70 - 105) H 07/14/17 11:26 Hemoglobin A1c % 5.2 % (4.0-6.0) 07/17/17 04:33 Whole Bld Lactic Acid 3.99 mmol/L (0.60-1.99) H* 07/05/17 13:00 Calcium 8.4 mg/dL (8.6-10.3) L 07/25/17 04:20 Phosphorus 1.5 mg/dL (2.5-5.0) L 07/02/17 05:20 Magnesium 1.7 mg/dL (1.9-2.7) L 07/02/17 05:20 Iron 21 07/03/17 05:48 TIBC 131 07/03/17 05:48 Iron Saturation 16 07/03/17 05:48 Unsaturated IBC 110 07/03/17 05:48 Ferritin 334 ng/mL (15-150) H 07/03/17 05:48 Total Bilirubin 0.5 mg/dL (0.3-1.0) 07/05/17 06:05 AST 16 U/L (13-39) 07/05/17 06:05 ALT 8 U/L (7-52) 07/05/17 06:05 Alkaline Phosphatase 66 U/L (34-104) 07/05/17 06:05 Troponin I 0.09 ng/mL (0.01-0.05) H* D 07/04/17 05:50 B-Natriuretic Peptide 215.0 pg/mL (5.0-100.0) H 07/01/17 14:10 Total Protein 5.6 gm/dL (6.0-8.3) L 07/05/17 06:05 Albumin 2.6 gm/dL (3.7-5.3) L 07/05/17 06:05 Globulin 3.0 gm/dL 07/05/17 06:05 Albumin/Globulin Ratio 0.9 (1.0-1.8) L 07/05/17 06:05 Triglycerides 107 mg/dL (<150) 07/04/17 05:50 Cholesterol 114 mg/dL (<200) 07/04/17 05:50 LDL Cholesterol Direct 59 mg/dL (75-193) L 07/04/17 05:50 HDL Cholesterol 31 mg/dL (23-92) 07/04/17 05:50 TSH 1.46 uIU/ml (0.34-5.60) 07/04/17 05:50 Urine Source CATH 07/05/17 18:30 Urine Color YELLOW 07/05/17 18:30 Urine Clarity CLOUDY (CLEAR) H 07/05/17 18:30 Urine pH 5.5 (4.6 - 8.0) 07/05/17 18:30 Ur Specific [place] 1.025 (1.005-1.030) 07/05/17 18:30 Urine Protein 30 mg/dL (NEGATIVE) H 07/05/17 18:30 Urine Glucose (UA) NEGATIVE mg/dL (NEGATIVE) 07/05/17 18:30 Urine Ketones TRACE mg/dL (NEGATIVE) 07/05/17 18:30 Urine Blood SMALL (NEGATIVE) H 07/05/17 18:30 Urine Nitrate NEGATIVE (NEGATIVE) 07/05/17 18:30 Urine Bilirubin NEGATIVE (NEGATIVE) 07/05/17 18:30 Urine Urobilinogen 0.2 E.U./dL (0.2 - 1.0) 07/05/17 18:30 Ur Leukocyte Esterase LARGE (NEGATIVE) H 07/05/17 18:30 Urine RBC 2-5 /hpf (0-5) 07/05/17 18:30 Urine WBC >100 /hpf (0-5) H 07/05/17 18:30 Ur Epithelial Cells FEW /lpf (FEW) 07/05/17 18:30 Urine Bacteria FEW /hpf (NONE SEEN) 07/05/17 18:30 Urine Yeast FEW /hpf (NONE SEEN) H 07/05/17 18:30 Stool Occult Blood POSITIVE (NEGATIVE) H 07/13/17 19:00 Vancomycin Trough 23.1 ug/mL (5-10) H 07/22/17 08:00 Random Vancomycin 23.8 ug/mL (5.0-40.0) 07/24/17 04:00 - Physical Exam Vitals and I&O: Vital Signs Temp 98.8 F 07/25/17 08:00 Pulse 95 07/25/17 09:22 Resp 19 07/25/17 08:00 BP 129/61 07/25/17 09:23 Pulse Ox 100 07/25/17 08:00 Intake & Output 07/24/17 07/25/17 07/25/17 18:59 06:59 18:59 Intake Total 680 450 Output Total 2400 1845 Balance -1720 -1395 Weight (lbs) 65.771 kg 65.771 kg Intake: Tube Feeding 600 450 Other 80 Output: Urine 2400 1845 Other: # Bowel Movements 1 1 Stool Characteristics Liquid Brown Weight Source Bedscale Bedscale Active Medications: Current Medications Acetaminophen (Tylenol) 650 mg PO Q4H PRN PRN Reason: Fever > 101 Stop: 08/30/17 22:06 Last Admin: 07/23/17 10:17 Dose: 650 mg Albuterol/Ipratropium (Duoneb Neb) 3 ml HHN Q4HRT PRN PRN Reason: Wheezing Stop: 08/30/17 22:13 Last Admin: 07/22/17 18:56 Dose: 3 ml Albuterol/Ipratropium (Duoneb Neb) 3 ml HHN Q6HRT [facility] Stop: 08/31/17 00:59 Last Admin: 07/25/17 07:05 Dose: 3 ml Ascorbic Acid (Vitamin C) 500 mg PO DAILY [facility] Stop: 08/31/17 08:59 Last Admin: 07/25/17 09:22 Dose: 500 mg Baclofen (Lioresal) 5 mg PO TID [facility] Stop: 09/06/17 08:59 Last Admin: 07/25/17 09:23 Dose: 5 mg Bisacodyl (Dulcolax 10 Mg Supp) 10 mg RC DAILY PRN PRN Reason: BOWEL CARE MANAGEMENT Stop: 09/20/17 09:14 Budesonide (Pulmicort) 0.5 mg HHN BIDRT [facility] Stop: 08/31/17 18:59 Last Admin: 07/25/17 07:06 Dose: 0.5 mg Cyproheptadine HCl (Periactin) 4 mg PO BID [facility] Stop: 08/31/17 08:59 Last Admin: 07/25/17 09:22 Dose: 4 mg Docusate Sodium (Colace) 100 mg PO BID [facility] Stop: 08/31/17 08:59 Last Admin: 07/25/17 09:22 Dose: 100 mg Ferrous Sulfate (Iron) 325 mg PO BID [facility] Stop: 08/31/17 08:59 Last Admin: 07/25/17 09:23 Dose: 325 mg Folic Acid (Folate) 1 mg PO DAILY [facility] Stop: 08/31/17 08:59 Last Admin: 07/25/17 09:23 Dose: 1 mg Furosemide (Lasix) 20 mg IVP DAILY [facility] Stop: 09/16/17 11:59 Last Admin: 07/25/17 09:23 Dose: 20 mg Norepinephrine Bitartrate 4 mg (/ Sodium Chloride) 254 mls @ 0 mls/hr IV TITR [facility]; Titrate PRN Reason: Protocol Stop: 09/03/17 16:29 Dextrose/Sodium Chloride (D5-0.45ns) 1,000 mls @ 20 mls/hr IV .Q24H [facility] Stop: 09/22/17 09:16 Last Admin: 07/24/17 10:49 Dose: 20 mls/hr Lactobacillus Rhamnosus (Culturelle 15b) 1 each PO DAILY [facility] Stop: 09/01/17 08:59 Last Admin: 07/25/17 09:23 Dose: 1 each Lactulose (Cephulac) 20 gm PO QID PRN PRN Reason: Constipation Stop: 08/30/17 22:18 Last Admin: 07/17/17 17:50 Dose: 20 gm Lorazepam (Ativan) 1 mg IVP Q4HR PRN; Protocol PRN Reason: Anxiety Stop: 09/04/17 08:31 Last Admin: 07/18/17 21:49 Dose: 1 mg Losartan Potassium (Cozaar) 50 mg PO DAILY [facility] Stop: 09/23/17 08:59 Last Admin: 07/25/17 09:22 Dose: 50 mg Methylprednisolone Sodium Succinate (Solu-Medrol) 40 mg IVP Q8HR [facility] Stop: 09/09/17 20:59 Last Admin: 07/25/17 09:22 Dose: 40 mg Miscellaneous (Probiotic Screen) 1 ea MC PRN PRN PRN Reason: PROTOCOL Stop: 09/01/17 08:44 Multivitamins/Vitamin C (Theragran) 1 tab PO DAILY [facility] Stop: 08/31/17 08:59 Last Admin: 07/25/17 09:23 Dose: 1 tab Nicotine (Nicotine Transdermal System) 14 mg TD DAILY [facility] Stop: 09/04/17 08:59 Last Admin: 07/25/17 09:22 Dose: 14 mg Pantoprazole Sodium (Protonix) 40 mg IVP BID [facility] Stop: 09/13/17 08:59 Last Admin: 07/25/17 09:23 Dose: 40 mg General: Mild distress, Other (NGT FEEDING) HEENT: Atraumatic, Other Neck: Supple, no JVD, no Thyromegaly Cardiovascular: Regular rate, Normal S1, Normal S2, Other (in A fib) Lungs: Other Abdomen: Bowel sounds, Soft, no Tender, no Hepatomegaly Extremities: no Clubbing Neurological: Other (Pt unable to participate in test) Skin: no Rash Psych/Mental Status: Other (no psychosis) - Procedures Procedures: Procedures Procedure Code Date INSERT EMERGENCY AIRWAY 49008 07/01/17 INSERTION OF ENDOTRACHEAL AIRWAY INTO TRACHEA, VIA OPENING [id number] 07/01/17 RESPIRATORY VENTILATION, GREATER THAN 96 CONSECUTIVE HOURS [id number] 07/01/17 VENT MGMT INPAT INIT DAY 20179 07/01/17 Assessment/Plan - Problem List Patient Problems: All Active Problems WEAKESS AND POOR ORAL INTAKE (Acute) - Assessment Assessment: * Advanced metastatic cancer * poor functional status * Anemia likely of chronic disease * Respiratory failure s/p intubation 07/05 off cpap, 07/19 back on vent. 07/20 extubated iron studies cw anemia of chronic disease. hgb better today without transfusion, monitor hgb and transfuse for < 7.5 swallow evaluation very Poor prognosis follow cbc Nutritional Asmnt/Malnutr-PDOC - Dietary Evaluation Malnutrition Findings (Please click <Entered> for more info): Nutritional Asmnt/Malnutrition Start: 07/03/17 13: 22 Text: Status: Complete Freq: Document 07/03/17 13:22 MMULHERN (Rec: 07/03/17 13:35 MMULHERJas ELLER [email or web address]) Nutritional Asmnt/Malnutrition Patient General Information Nutritional Screening Consult Diagnosis UTI, Failure to thrive, hypokalemia Pertinent Medical Hx/Surgical Hx CAD, HTN, COPD, Stage 4 lung cancer, peripheral neuropathy, constipation, GERD, anxiety, low back pain Subjective Information Consult received for Failure to Thrive. Current Diet Order/ Nutrition Support Regular diet, pureed with mechaical soft Patient / S.O Not Indicated Pertinent Medications Vitamin C, dulcolax, D5-0.45 NS @ 75 ml/hr, colace, iron, folate, lactulose, theragran Pertinent Labs (07/02) P 1.5, Mg 1.7, albumin 2.9 Nutritional Hx/Data Height 1.6 m Height (Calculated Centimeters) 160.0 Current Weight (lbs) 54.885 kg Weight (Calculated Kilograms) 54.9 Weight (Calculated Grams) 49647.7 [place] Body Weight 115 % [place] Body Weight 105 Body Mass Index (BMI) 21.4 Recent Weight Change No Weight Status Approriate GI Symptoms GI Symptoms None Last BM Prior to admission Difficult in: None Food Allergies No Cultural/Ethnic/[employer] Belief None indicated Skin Integrity/Comment: Pradeep 15 Current %PO Poor (25-49%) Estimated Nutritional Goals BEE in Kcals: Using Current wt Calories/Kcals/Kg 55kg CBW (25-30kcal/kg) Kcals Calculated 9530-5472 kcal/day Protein: Using Current wt Protein g/k-1.2 gm/kg Protein Calculated 55-65 gm/day Fluid: ml 2034-8027 ml/day (1 ml/kcal) Nutritional Problem 2. Problem Problem Inadequate oral intake related to Etiology poor appetite aeb Signs/Symptoms: meeting <75% of estimated nutrient needs 1. Problem Problem Altered nutrition related lab values related to Etiology electrolyte imbalance aeb Signs/Symptoms: P 1.5, Mg 1.7 Intervention/Recommendation Comments 1. Continue pureed diet as tolerated by patient. 2. RN To assist with feedings and encourage oral intake. 3. Consider adding Boost plus between meals to optimize calorie and protein intake. Expected Outcomes/Goals Expected Outcomes/Goals Oral intake to meet >75% of needs, weight stable, nutrition labs WNL F/U MR 07/06-
--- NOTE | 2017-07-25 12:58 | GI Progress Note ---
Subjective - Review of Systems Subjective: NO ACTIVE BLEEDING HAS NGT Objective - Results Result Diagrams: 07/25/17 04:20 07/25/17 04:20 Recent Labs: Laboratory Last Values WBC 19.1 Th/cmm (4.8-10.8) H 07/25/17 04:20 RBC 2.74 Mil/cmm (3.80-5.20) L 07/25/17 04:20 Hgb 8.3 gm/dL (12-16) L 07/25/17 04:20 Hct 24.6 % (41.0-60) L 07/25/17 04:20 MCV 90.0 fl (81-100) 07/25/17 04:20 MCH 30.2 pg (27.0-31.0) 07/25/17 04:20 MCHC Differential 33.6 pg (28.0-36.0) 07/25/17 04:20 RDW 16.4 % (11.5-20.0) 07/25/17 04:20 Plt Count 301 Th/cmm (150-400) 07/25/17 04:20 MPV 7.2 fl 07/25/17 04:20 Neutrophils % 95.6 % (40.0-80.0) H 07/25/17 04:20 Band Neutrophils % 2 % (0-10) 07/24/17 04:00 Lymphocytes % 2.3 % (20.0-50.0) L 07/25/17 04:20 Monocytes % 1.8 % (2.0-10.0) L 07/25/17 04:20 Eosinophils % 0.3 % (0.0-5.0) 07/25/17 04:20 Basophils % 0.0 % (0.0-2.0) 07/25/17 04:20 Neutrophils (Manual) 92 % (40-80) H 07/24/17 04:00 Lymphocytes 4 % (20-50) L 07/24/17 04:00 Monocytes 2 % (2-10) 07/24/17 04:00 Eosinophils 0 % (0-5) 07/24/17 04:00 Basophils 0 % (0-3) 07/24/17 04:00 Hypochromia 1+ 07/21/17 04:30 Platelet Estimate ADEQUATE (NORMAL) 07/22/17 04:05 Platelet Morphology NORMAL (NORMAL) 07/16/17 04:35 Polychromasia 1+ 07/14/17 05:00 Ovalocytes 1+ 07/21/17 04:30 RBC Morph Micro Appear NORMAL (NORMAL) 07/16/17 04:35 Specimen Source Arterial 07/19/17 19:14 Sample Site RIGHT BRACHIAL 07/19/17 19:14 pH 7.44 (7.35-7.45) 07/19/17 19:14 pCO2 39.0 mmHg (35.0-45.0) 07/19/17 19:14 pO2 179.0 mmHg (80.0-100.0) H 07/19/17 19:14 HCO3 26.7 mEq/L (20.0-26.0) H 07/19/17 19:14 Base Excess 2.2 mEq/L (-3.0-3.0) 07/19/17 19:14 O2 Saturation 100.0 % (92.0-100.0) 07/19/17 19:14 Darius Test Positive 07/19/17 19:14 Vent Rate NA 07/18/17 10:48 Inspired O2 40 07/19/17 19:14 Tidal Volume NA 07/18/17 10:48 PEEP NA 07/18/17 10:48 Pressure (ins/psv/peep) NA 07/18/17 10:48 Critical Value SC 07/19/17 19:14 Sodium 138 mEq/L (136-145) 07/25/17 04:20 Potassium 4.7 mEq/L (3.5-5.1) 07/25/17 04:20 Chloride 102 mEq/L (98-107) 07/25/17 04:20 Carbon Dioxide 30.3 mEq/L (21.0-31.0) 07/25/17 04:20 Anion Gap 10.4 (7.0-16.0) 07/25/17 04:20 BUN 39 mg/dL (7-25) H 07/25/17 04:20 Creatinine 1.1 mg/dL (0.6-1.2) 07/25/17 04:20 Est GFR ( Amer) TNP 07/25/17 04:20 Est GFR (Non-Af Amer) TNP 07/25/17 04:20 BUN/Creatinine Ratio 35.5 07/25/17 04:20 Glucose 153 mg/dL (70-105) H 07/25/17 04:20 POC Glucose 177 MG/DL (70 - 105) H 07/14/17 11:26 Hemoglobin A1c % 5.2 % (4.0-6.0) 07/17/17 04:33 Whole Bld Lactic Acid 3.99 mmol/L (0.60-1.99) H* 07/05/17 13:00 Calcium 8.4 mg/dL (8.6-10.3) L 07/25/17 04:20 Phosphorus 1.5 mg/dL (2.5-5.0) L 07/02/17 05:20 Magnesium 1.7 mg/dL (1.9-2.7) L 07/02/17 05:20 Iron 21 07/03/17 05:48 TIBC 131 07/03/17 05:48 Iron Saturation 16 07/03/17 05:48 Unsaturated IBC 110 07/03/17 05:48 Ferritin 334 ng/mL (15-150) H 07/03/17 05:48 Total Bilirubin 0.5 mg/dL (0.3-1.0) 07/05/17 06:05 AST 16 U/L (13-39) 07/05/17 06:05 ALT 8 U/L (7-52) 07/05/17 06:05 Alkaline Phosphatase 66 U/L (34-104) 07/05/17 06:05 Troponin I 0.09 ng/mL (0.01-0.05) H* D 07/04/17 05:50 B-Natriuretic Peptide 215.0 pg/mL (5.0-100.0) H 07/01/17 14:10 Total Protein 5.6 gm/dL (6.0-8.3) L 07/05/17 06:05 Albumin 2.6 gm/dL (3.7-5.3) L 07/05/17 06:05 Globulin 3.0 gm/dL 07/05/17 06:05 Albumin/Globulin Ratio 0.9 (1.0-1.8) L 07/05/17 06:05 Triglycerides 107 mg/dL (<150) 07/04/17 05:50 Cholesterol 114 mg/dL (<200) 07/04/17 05:50 LDL Cholesterol Direct 59 mg/dL (75-193) L 07/04/17 05:50 HDL Cholesterol 31 mg/dL (23-92) 07/04/17 05:50 TSH 1.46 uIU/ml (0.34-5.60) 07/04/17 05:50 Urine Source CATH 07/05/17 18:30 Urine Color YELLOW 07/05/17 18:30 Urine Clarity CLOUDY (CLEAR) H 07/05/17 18:30 Urine pH 5.5 (4.6 - 8.0) 07/05/17 18:30 Ur Specific [place] 1.025 (1.005-1.030) 07/05/17 18:30 Urine Protein 30 mg/dL (NEGATIVE) H 07/05/17 18:30 Urine Glucose (UA) NEGATIVE mg/dL (NEGATIVE) 07/05/17 18:30 Urine Ketones TRACE mg/dL (NEGATIVE) 07/05/17 18:30 Urine Blood SMALL (NEGATIVE) H 07/05/17 18:30 Urine Nitrate NEGATIVE (NEGATIVE) 07/05/17 18:30 Urine Bilirubin NEGATIVE (NEGATIVE) 07/05/17 18:30 Urine Urobilinogen 0.2 E.U./dL (0.2 - 1.0) 07/05/17 18:30 Ur Leukocyte Esterase LARGE (NEGATIVE) H 07/05/17 18:30 Urine RBC 2-5 /hpf (0-5) 07/05/17 18:30 Urine WBC >100 /hpf (0-5) H 07/05/17 18:30 Ur Epithelial Cells FEW /lpf (FEW) 07/05/17 18:30 Urine Bacteria FEW /hpf (NONE SEEN) 07/05/17 18:30 Urine Yeast FEW /hpf (NONE SEEN) H 07/05/17 18:30 Stool Occult Blood POSITIVE (NEGATIVE) H 07/13/17 19:00 Vancomycin Trough 23.1 ug/mL (5-10) H 07/22/17 08:00 Random Vancomycin 23.8 ug/mL (5.0-40.0) 07/24/17 04:00 - Physical Exam Vitals and I&O: Vital Signs Temp 98 F 07/25/17 12:00 Pulse 88 07/25/17 12:00 Resp 23 07/25/17 12:00 BP 126/69 07/25/17 12:00 Pulse Ox 100 05/07/18 12:00 Intake & Output 07/24/17 07/25/17 07/25/17 18:59 06:59 18:59 Intake Total 680 450 Output Total 2400 1845 Balance -1720 -1395 Weight (lbs) 65.771 kg 65.771 kg Intake: Tube Feeding 600 450 Other 80 Output: Urine 2400 1845 Other: # Bowel Movements 1 1 Stool Characteristics Liquid Brown Weight Source Bedscale Bedscale Active Medications: Current Medications Acetaminophen (Tylenol) 650 mg PO Q4H PRN PRN Reason: Fever > 101 Stop: 08/30/17 22:06 Last Admin: 07/23/17 10:17 Dose: 650 mg Albuterol/Ipratropium (Duoneb Neb) 3 ml HHN Q4HRT PRN PRN Reason: Wheezing Stop: 08/30/17 22:13 Last Admin: 07/22/17 18:56 Dose: 3 ml Albuterol/Ipratropium (Duoneb Neb) 3 ml HHN Q6HRT [facility] Stop: 08/31/17 00:59 Last Admin: 07/25/17 07:05 Dose: 3 ml Ascorbic Acid (Vitamin C) 500 mg PO DAILY [facility] Stop: 08/31/17 08:59 Last Admin: 07/25/17 09:22 Dose: 500 mg Baclofen (Lioresal) 5 mg PO TID [facility] Stop: 09/06/17 08:59 Last Admin: 07/25/17 09:23 Dose: 5 mg Bisacodyl (Dulcolax 10 Mg Supp) 10 mg RC DAILY PRN PRN Reason: BOWEL CARE MANAGEMENT Stop: 09/20/17 09:14 Budesonide (Pulmicort) 0.5 mg HHN BIDRT [facility] Stop: 08/31/17 18:59 Last Admin: 07/25/17 07:06 Dose: 0.5 mg Cyproheptadine HCl (Periactin) 4 mg PO BID [facility] Stop: 08/31/17 08:59 Last Admin: 07/25/17 09:22 Dose: 4 mg Docusate Sodium (Colace) 100 mg PO BID [facility] Stop: 08/31/17 08:59 Last Admin: 07/25/17 09:22 Dose: 100 mg Ferrous Sulfate (Iron) 325 mg PO BID [facility] Stop: 08/31/17 08:59 Last Admin: 07/25/17 09:23 Dose: 325 mg Folic Acid (Folate) 1 mg PO DAILY [facility] Stop: 08/31/17 08:59 Last Admin: 07/25/17 09:23 Dose: 1 mg Furosemide (Lasix) 20 mg IVP DAILY [facility] Stop: 09/16/17 11:59 Last Admin: 07/25/17 09:23 Dose: 20 mg Norepinephrine Bitartrate 4 mg (/ Sodium Chloride) 254 mls @ 0 mls/hr IV TITR [facility]; Titrate PRN Reason: Protocol Stop: 09/03/17 16:29 Dextrose/Sodium Chloride (D5-0.45ns) 1,000 mls @ 20 mls/hr IV .Q24H [facility] Stop: 09/22/17 09:16 Last Admin: 07/24/17 10:49 Dose: 20 mls/hr Lactobacillus Rhamnosus (Culturelle 15b) 1 each PO DAILY [facility] Stop: 09/01/17 08:59 Last Admin: 07/25/17 09:23 Dose: 1 each Lactulose (Cephulac) 20 gm PO QID PRN PRN Reason: Constipation Stop: 08/30/17 22:18 Last Admin: 07/17/17 17:50 Dose: 20 gm Lorazepam (Ativan) 1 mg IVP Q4HR PRN; Protocol PRN Reason: Anxiety Stop: 09/04/17 08:31 Last Admin: 07/18/17 21:49 Dose: 1 mg Losartan Potassium (Cozaar) 50 mg PO DAILY [facility] Stop: 09/23/17 08:59 Last Admin: 07/25/17 09:22 Dose: 50 mg Methylprednisolone Sodium Succinate (Solu-Medrol) 40 mg IVP Q8HR [facility] Stop: 09/09/17 20:59 Last Admin: 07/25/17 09:22 Dose: 40 mg Miscellaneous (Probiotic Screen) 1 ea MC PRN PRN PRN Reason: PROTOCOL Stop: 09/01/17 08:44 Multivitamins/Vitamin C (Theragran) 1 tab PO DAILY [facility] Stop: 08/31/17 08:59 Last Admin: 07/25/17 09:23 Dose: 1 tab Nicotine (Nicotine Transdermal System) 14 mg TD DAILY [facility] Stop: 09/04/17 08:59 Last Admin: 07/25/17 09:22 Dose: 14 mg Pantoprazole Sodium (Protonix) 40 mg IVP BID [facility] Stop: 09/13/17 08:59 Last Admin: 07/25/17 09:23 Dose: 40 mg General: Mild distress, Other (NGT FEEDING) HEENT: Atraumatic, Other Neck: Supple, no JVD, no Thyromegaly Cardiovascular: Regular rate, Normal S1, Normal S2, Other (in A fib) Lungs: Other Abdomen: Bowel sounds, Soft, no Tender, no Hepatomegaly Extremities: no Clubbing Neurological: Other (Pt unable to participate in test) Skin: no Rash Psych/Mental Status: Other (no psychosis) - Procedures Procedures: Procedures Procedure Code Date INSERT EMERGENCY AIRWAY [id number] 07/01/17 INSERTION OF ENDOTRACHEAL AIRWAY INTO TR[place]HEA, VIA OPENING [id number] 07/01/17 RESPIRATORY VENTILATION, GREATER THAN 96 CONSECUTIVE HOURS [id number] 07/01/17 VENT MGMT INPAT INIT DAY [id number] 07/01/17 Assessment/Plan - Problem List Patient Problems: All Active Problems WEAKESS AND POOR ORAL INTAKE (Acute) - Assessment Assessment: 87 YO FEMALE WITH LUNG CA ANEMIA WITH OB + STOOL NO ACTIVE BLEEDING ENDOSCOPIC WORK UP CAN BE DONE HOWEVER PT IS HIGH RISK PER STAFF FAMILY DOES NOT WANT PEG 1.FOLLOW H/H; TRANSFUSE PRN 2.CONT PROTONIX 3.CONSIDER ENDOSCOPIC WORK UP IF ACTIVE BLEED OR SIG DROP IN HGB
--- NOTE | 2017-07-25 13:09 | Infectious Disease Prog Note ---
Infectious Disease Subjective - Review of Systems Service Date: 07/25/17 Subjective: There is no new change. Patient remains off vent. Failed swallow eval. Family refused peg placement. Low grade fever. leukocytosis is worse today, likely reactive. Infectious Disease Objective - Results Result Diagrams: 07/25/17 04:20 07/25/17 04:20 Recent Labs: Laboratory Last Values WBC 19.1 Th/cmm (4.8-10.8) H 07/25/17 04:20 RBC 2.74 Mil/cmm (3.80-5.20) L 07/25/17 04:20 Hgb 8.3 gm/dL (12-16) L 07/25/17 04:20 Hct 24.6 % (41.0-60) L 07/25/17 04:20 MCV 90.0 fl (81-100) 07/25/17 04:20 MCH 30.2 pg (27.0-31.0) 07/25/17 04:20 MCHC Differential 33.6 pg (28.0-36.0) 07/25/17 04:20 RDW 16.4 % (11.5-20.0) 07/25/17 04:20 Plt Count 301 Th/cmm (150-400) 07/25/17 04:20 MPV 7.2 fl 07/25/17 04:20 Neutrophils % 95.6 % (40.0-80.0) H 07/25/17 04:20 Band Neutrophils % 2 % (0-10) 07/24/17 04:00 Lymphocytes % 2.3 % (20.0-50.0) L 07/25/17 04:20 Monocytes % 1.8 % (2.0-10.0) L 07/25/17 04:20 Eosinophils % 0.3 % (0.0-5.0) 07/25/17 04:20 Basophils % 0.0 % (0.0-2.0) 07/25/17 04:20 Neutrophils (Manual) 92 % (40-80) H 07/24/17 04:00 Lymphocytes 4 % (20-50) L 07/24/17 04:00 Monocytes 2 % (2-10) 07/24/17 04:00 Eosinophils 0 % (0-5) 07/24/17 04:00 Basophils 0 % (0-3) 07/24/17 04:00 Hypochromia 1+ 07/21/17 04:30 Platelet Estimate ADEQUATE (NORMAL) 07/22/17 04:05 Platelet Morphology NORMAL (NORMAL) 07/16/17 04:35 Polychromasia 1+ 07/14/17 05:00 Ovalocytes 1+ 07/21/17 04:30 RBC Morph Micro Appear NORMAL (NORMAL) 07/16/17 04:35 Specimen Source Arterial 07/19/17 19:14 Sample Site RIGHT BRACHIAL 07/19/17 19:14 pH 7.44 (7.35-7.45) 07/19/17 19:14 pCO2 39.0 mmHg (35.0-45.0) 07/19/17 19:14 pO2 179.0 mmHg (80.0-100.0) H 07/19/17 19:14 HCO3 26.7 mEq/L (20.0-26.0) H 07/19/17 19:14 Base Excess 2.2 mEq/L (-3.0-3.0) 07/19/17 19:14 O2 Saturation 100.0 % (92.0-100.0) 07/19/17 19:14 Darius Test Positive 07/19/17 19:14 Vent Rate NA 07/18/17 10:48 Inspired O2 40 07/19/17 19:14 Tidal Volume NA 07/18/17 10:48 PEEP NA 07/18/17 10:48 Pressure (ins/psv/peep) NA 07/18/17 10:48 Critical Value SC 07/19/17 19:14 Sodium 138 mEq/L (136-145) 07/25/17 04:20 Potassium 4.7 mEq/L (3.5-5.1) 07/25/17 04:20 Chloride 102 mEq/L (98-107) 07/25/17 04:20 Carbon Dioxide 30.3 mEq/L (21.0-31.0) 07/25/17 04:20 Anion Gap 10.4 (7.0-16.0) 07/25/17 04:20 BUN 39 mg/dL (7-25) H 07/25/17 04:20 Creatinine 1.1 mg/dL (0.6-1.2) 07/25/17 04:20 Est GFR ( Amer) TNP 07/25/17 04:20 Est GFR (Non-Af Amer) TNP 07/25/17 04:20 BUN/Creatinine Ratio 35.5 07/25/17 04:20 Glucose 153 mg/dL (70-105) H 07/25/17 04:20 POC Glucose 177 MG/DL (70 - 105) H 07/14/17 11:26 Hemoglobin A1c % 5.2 % (4.0-6.0) 07/17/17 04:33 Whole Bld Lactic Acid 3.99 mmol/L (0.60-1.99) H* 07/05/17 13:00 Calcium 8.4 mg/dL (8.6-10.3) L 07/25/17 04:20 Phosphorus 1.5 mg/dL (2.5-5.0) L 07/02/17 05:20 Magnesium 1.7 mg/dL (1.9-2.7) L 07/02/17 05:20 Iron 21 07/03/17 05:48 TIBC 131 07/03/17 05:48 Iron Saturation 16 07/03/17 05:48 Unsaturated IBC 110 07/03/17 05:48 Ferritin 334 ng/mL (15-150) H 07/03/17 05:48 Total Bilirubin 0.5 mg/dL (0.3-1.0) 07/05/17 06:05 AST 16 U/L (13-39) 07/05/17 06:05 ALT 8 U/L (7-52) 07/05/17 06:05 Alkaline Phosphatase 66 U/L (34-104) 07/05/17 06:05 Troponin I 0.09 ng/mL (0.01-0.05) H* D 07/04/17 05:50 B-Natriuretic Peptide 215.0 pg/mL (5.0-100.0) H 07/01/17 14:10 Total Protein 5.6 gm/dL (6.0-8.3) L 07/05/17 06:05 Albumin 2.6 gm/dL (3.7-5.3) L 07/05/17 06:05 Globulin 3.0 gm/dL 07/05/17 06:05 Albumin/Globulin Ratio 0.9 (1.0-1.8) L 07/05/17 06:05 Triglycerides 107 mg/dL (<150) 07/04/17 05:50 Cholesterol 114 mg/dL (<200) 07/04/17 05:50 LDL Cholesterol Direct 59 mg/dL (75-193) L 07/04/17 05:50 HDL Cholesterol 31 mg/dL (23-92) 07/04/17 05:50 TSH 1.46 uIU/ml (0.34-5.60) 07/04/17 05:50 Urine Source CATH 07/05/17 18:30 Urine Color YELLOW 07/05/17 18:30 Urine Clarity CLOUDY (CLEAR) H 07/05/17 18:30 Urine pH 5.5 (4.6 - 8.0) 07/05/17 18:30 Ur Specific [place] 1.025 (1.005-1.030) 07/05/17 18:30 Urine Protein 30 mg/dL (NEGATIVE) H 07/05/17 18:30 Urine Glucose (UA) NEGATIVE mg/dL (NEGATIVE) 07/05/17 18:30 Urine Ketones TRACE mg/dL (NEGATIVE) 07/05/17 18:30 Urine Blood SMALL (NEGATIVE) H 07/05/17 18:30 Urine Nitrate NEGATIVE (NEGATIVE) 07/05/17 18:30 Urine Bilirubin NEGATIVE (NEGATIVE) 07/05/17 18:30 Urine Urobilinogen 0.2 E.U./dL (0.2 - 1.0) 07/05/17 18:30 Ur Leukocyte Esterase LARGE (NEGATIVE) H 07/05/17 18:30 Urine RBC 2-5 /hpf (0-5) 07/05/17 18:30 Urine WBC >100 /hpf (0-5) H 07/05/17 18:30 Ur Epithelial Cells FEW /lpf (FEW) 07/05/17 18:30 Urine Bacteria FEW /hpf (NONE SEEN) 07/05/17 18:30 Urine Yeast FEW /hpf (NONE SEEN) H 07/05/17 18:30 Stool Occult Blood POSITIVE (NEGATIVE) H 07/13/17 19:00 Vancomycin Trough 23.1 ug/mL (5-10) H 07/22/17 08:00 Random Vancomycin 23.8 ug/mL (5.0-40.0) 07/24/17 04:00 - Physical Exam Vitals and I&O: Vital Signs Temp 98 F 07/25/17 12:00 Pulse 88 07/25/17 12:00 Resp 23 07/25/17 12:00 BP 126/69 07/25/17 12:00 Pulse Ox 100 07/25/17 12:00 Intake & Output 07/24/17 07/25/17 07/25/17 18:59 06:59 18:59 Intake Total 680 450 Output Total 2400 1845 Balance -1720 -1395 Weight (lbs) 65.771 kg 65.771 kg Intake: Tube Feeding 600 450 Other 80 Output: Urine 2400 1845 Other: # Bowel Movements 1 1 Stool Characteristics Liquid Brown Weight Source Bedscale Bedscale Active Medications: Current Medications Acetaminophen (Tylenol) 650 mg PO Q4H PRN PRN Reason: Fever > 101 Stop: 08/30/17 22:06 Last Admin: 07/23/17 10:17 Dose: 650 mg Albuterol/Ipratropium (Duoneb Neb) 3 ml HHN Q4HRT PRN PRN Reason: Wheezing Stop: 08/30/17 22:13 Last Admin: 07/22/17 18:56 Dose: 3 ml Albuterol/Ipratropium (Duoneb Neb) 3 ml HHN Q6HRT [facility] Stop: 08/31/17 00:59 Last Admin: 07/25/17 07:05 Dose: 3 ml Ascorbic Acid (Vitamin C) 500 mg PO DAILY [facility] Stop: 08/31/17 08:59 Last Admin: 07/25/17 09:22 Dose: 500 mg Baclofen (Lioresal) 5 mg PO TID [facility] Stop: 09/06/17 08:59 Last Admin: 07/25/17 09:23 Dose: 5 mg Bisacodyl (Dulcolax 10 Mg Supp) 10 mg RC DAILY PRN PRN Reason: BOWEL CARE MANAGEMENT Stop: 09/20/17 09:14 Budesonide (Pulmicort) 0.5 mg HHN BIDRT [facility] Stop: 08/31/17 18:59 Last Admin: 07/25/17 07:06 Dose: 0.5 mg Cyproheptadine HCl (Periactin) 4 mg PO BID [facility] Stop: 08/31/17 08:59 Last Admin: 07/25/17 09:22 Dose: 4 mg Docusate Sodium (Colace) 100 mg PO BID [facility] Stop: 08/31/17 08:59 Last Admin: 07/25/17 09:22 Dose: 100 mg Ferrous Sulfate (Iron) 325 mg PO BID [facility] Stop: 08/31/17 08:59 Last Admin: 07/25/17 09:23 Dose: 325 mg Folic Acid (Folate) 1 mg PO DAILY [facility] Stop: 08/31/17 08:59 Last Admin: 07/25/17 09:23 Dose: 1 mg Furosemide (Lasix) 20 mg IVP DAILY [facility] Stop: 09/16/17 11:59 Last Admin: 07/25/17 09:23 Dose: 20 mg Norepinephrine Bitartrate 4 mg (/ Sodium Chloride) 254 mls @ 0 mls/hr IV TITR [facility]; Titrate PRN Reason: Protocol Stop: 09/03/17 16:29 Dextrose/Sodium Chloride (D5-0.45ns) 1,000 mls @ 20 mls/hr IV .Q24H [facility] Stop: 09/22/17 09:16 Last Admin: 07/24/17 10:49 Dose: 20 mls/hr Lactobacillus Rhamnosus (Culturelle 15b) 1 each PO DAILY [facility] Stop: 09/01/17 08:59 Last Admin: 07/25/17 09:23 Dose: 1 each Lactulose (Cephulac) 20 gm PO QID PRN PRN Reason: Constipation Stop: 08/30/17 22:18 Last Admin: 07/17/17 17:50 Dose: 20 gm Lorazepam (Ativan) 1 mg IVP Q4HR PRN; Protocol PRN Reason: Anxiety Stop: 09/04/17 08:31 Last Admin: 07/18/17 21:49 Dose: 1 mg Losartan Potassium (Cozaar) 50 mg PO DAILY [facility] Stop: 09/23/17 08:59 Last Admin: 07/25/17 09:22 Dose: 50 mg Methylprednisolone Sodium Succinate (Solu-Medrol) 40 mg IVP Q8HR [facility] Stop: 09/09/17 20:59 Last Admin: 07/25/17 09:22 Dose: 40 mg Miscellaneous (Probiotic Screen) 1 ea MC PRN PRN PRN Reason: PROTOCOL Stop: 09/01/17 08:44 Multivitamins/Vitamin C (Theragran) 1 tab PO DAILY [facility] Stop: 06/13/18 08:59 Last Admin: 07/25/17 09:23 Dose: 1 tab Nicotine (Nicotine Transdermal System) 14 mg TD DAILY [facility] Stop: 09/04/17 08:59 Last Admin: 07/25/17 09:22 Dose: 14 mg Pantoprazole Sodium (Protonix) 40 mg IVP BID [facility] Stop: 09/13/17 08:59 Last Admin: 07/25/17 09:23 Dose: 40 mg General: no acute distress, cachectic HEENT: atraumatic, normocephalic, PERRLA Neck: supple, no thyromegaly Cardiovascular: S1S2, regular Lungs: clear to percussion, crackles Abdomen: soft, no tender, no distended Extremities: no cyanosis, no clubbing, no edema Neurological: awake, alert, oriented - Procedures Procedures: Procedures Procedure Code Date INSERT EMERGENCY AIRWAY 42357 07/01/17 INSERTION OF ENDOTRACHEAL AIRWAY INTO [place]HE[place], VIA OPENING [id number] 07/01/17 RESPIRATORY VENTILATION, GREATER THAN 96 CONSECUTIVE HOURS [id number] 07/01/17 VENT MGMT INPAT INIT DAY 36613 07/01/17 Infectious Disease Assmt/Plan - Problem List Patient Problems: All Active Problems WEAKESS AND POOR ORAL INTAKE (Acute) - Assessment Assessment: 1. Leukocytosis. worse, suspect reactive to CA, 2. Pneumonia. trated twice. 3. Stage IV lung CA. 4. Protein calorie malnutrion, 5. VDRF. 6. ALTERED MENTAL STATUS. - Plan Plan: off antibiotics, will monitor. Poor prognosis. Nutritional Asmnt/Malnutr-PDOC - Dietary Evaluation Malnutrition Findings (Please click <Entered> for more info): Nutritional Asmnt/Malnutrition Start: 07/03/17 13: 22 Text: Status: Complete Freq: Document 07/03/17 13:22 MMULHERN (Rec: 07/03/17 13:35 [facility] Nutritional Asmnt/Malnutrition Patient General Information Nutritional Screening Consult Diagnosis UTI, Failure to thrive, hypokalemia Pertinent Medical Hx/Surgical Hx CAD, HTN, COPD, Stage 4 lung cancer, peripheral neuropathy, constipation, GERD, anxiety, low back pain Subjective Information Consult received for Failure to Thrive. Current Diet Order/ Nutrition Support Regular diet, pureed with mechaical soft Patient / S.O Not Indicated Pertinent Medications Vitamin C, dulcolax, D5-0.45 NS @ 75 ml/hr, colace, iron, folate, lactulose, theragran Pertinent Labs (07/02) P 1.5, Mg 1.7, albumin 2.9 Nutritional Hx/Data Height 1.6 m Height (Calculated Centimeters) 160.0 Current Weight (lbs) 54.885 kg Weight (Calculated Kilograms) 54.9 Weight (Calculated Grams) 74477.7 [place] Body Weight 115 % [place] Body Weight 105 Body Mass Index (BMI) 21.4 Recent Weight Change No Weight Status Approriate GI Symptoms GI Symptoms None Last BM Prior to admission Difficult in: None Food Allergies No Cultural/Ethnic/Hinduism Belief None indicated Skin Integrity/Comment: Pradeep 15 Current %PO Poor (25-49%) Estimated Nutritional Goals BEE in Kcals: Using Current wt Calories/Kcals/Kg 55kg CBW (25-30kcal/kg) Kcals Calculated 8747-8189 kcal/day Protein: Using Current wt Protein g/k-1.2 gm/kg Protein Calculated 55-65 gm/day Fluid: ml 7608-7994 ml/day (1 ml/kcal) Nutritional Problem 2. Problem Problem Inadequate oral intake related to Etiology poor appetite aeb Signs/Symptoms: meeting <75% of estimated nutrient needs 1. Problem Problem Altered nutrition related lab values related to Etiology electrolyte imbalance aeb Signs/Symptoms: P 1.5, Mg 1.7 Intervention/Recommendation Comments 1. Continue pureed diet as tolerated by patient. 2. RN To assist with feedings and encourage oral intake. 3. Consider adding Boost plus between meals to optimize calorie and protein intake. Expected Outcomes/Goals Expected Outcomes/Goals Oral intake to meet >75% of needs, weight stable, nutrition labs WNL F/U MR 07/06-
[2017-07-25] MEDS: D5-0.45NS 1,000 ML IV SCH (17:31)
[2017-07-26] MEDS: Albuterol/Ipratropium Neb 3 ML AERS HHN SCH ×4 (00:31→19:08)
[2017-07-26 04:40] LABS: HEMATOCRIT 25.5 % (41.0-60); HEMOGLOBIN 8.4 gm/dL (12-16); MANUAL DIFF REQUIRED? YES; MEAN CELL VOLUME 89.3 fl (81-100); MEAN CORPUSCULAR HEMOGLOBIN 29.5 pg (27.0-31.0); MEAN PLATELET VOLUME 7.2 fl; PLATELET COUNT 303 Th/cmm (150-400); RED BLOOD COUNT 2.86 Mil/cmm (3.80-5.20); RED CELL DISTRIBUTION WIDTH 16.1 % (11.5-20.0)
[2017-07-26] MEDS: methylPREDNISolone SS 40 mg Vial IVP SCH ×3 (04:53→20:54)
[2017-07-26 04:55] LABS: ANION GAP 10.7 (7.0-16.0); BUN - UREA NITROGEN 42 mg/dL (7-25); CALCIUM SERUM 8.8 mg/dL (8.6-10.3); CHLORIDE 101 mEq/L (98-107); CREATININE - SERUM 1.1 mg/dL (0.6-1.2); GLUCOSE 148 mg/dL (70-105); POTASSIUM SERUM 4.7 mEq/L (3.5-5.1); SODIUM SERUM 139 mEq/L (136-145)
[2017-07-26 04:58] LABS: WHITE BLOOD COUNT 21.7 Th/cmm (4.8-10.8)
[2017-07-26 05:49] LABS: BAND NEUTROPHILE 5 % (0-10); LYMPHOCYTE 4 % (20-50); MONOCYTE 2 % (2-10); NEUTROPHILS 89 % (40-80); TOTAL CELLS COUNTED 100
--- NOTE | 2017-07-26 07:25 | General Progress Note ---
Subjective - Review of Systems Service Date: 07/26/17 Subjective: Pt seen and eval. In bed. Seen by jayson, bren, and heme onc, all of whom agree with hospice care. Dr. Montanez also discussed poor prog with son. No fevers or chills. WBC elevated, but improving. No falls. Pt went into A fib pm 07/04/16, and was transferred to ICU on digoxin. Intubated on 07/05/17. Was on Amiodarone and Levophed drip, both of which are off as of 07/06/17. She had large bm night of 07/10/17. Pt was extubated night of 07/19/17. On nasal cannula O2 at 2 L now. Awake, but very weak. Son does not want GT. However, she failed swallow eval on 07/22/17. Will repeat swallow eval today. Will talk to son again re GT. Son is still refusing to decide between GT and hospice. She's tele status now. More awake today. Objective - Results Result Diagrams: 07/26/17 04:20 07/26/17 04:20 Recent Labs: Laboratory Last Values WBC 21.7 Th/cmm (4.8-10.8) H* 07/26/17 04:20 RBC 2.86 Mil/cmm (3.80-5.20) L 07/26/17 04:20 Hgb 8.4 gm/dL (12-16) L 07/26/17 04:20 Hct 25.5 % (41.0-60) L 07/26/17 04:20 MCV 89.3 fl (81-100) 07/26/17 04:20 MCH 29.5 pg (27.0-31.0) 07/26/17 04:20 MCHC Differential 33.0 pg (28.0-36.0) 07/26/17 04:20 RDW 16.1 % (11.5-20.0) 07/26/17 04:20 Plt Count 303 Th/cmm (150-400) 07/26/17 04:20 MPV 7.2 fl 07/26/17 04:20 Neutrophils % 95.6 % (40.0-80.0) H 07/25/17 04:20 Band Neutrophils % 5 % (0-10) 07/26/17 04:20 Lymphocytes % 2.3 % (20.0-50.0) L 07/25/17 04:20 Monocytes % 1.8 % (2.0-10.0) L 07/25/17 04:20 Eosinophils % 0.3 % (0.0-5.0) 07/25/17 04:20 Basophils % 0.0 % (0.0-2.0) 07/25/17 04:20 Neutrophils (Manual) 89 % (40-80) H 07/26/17 04:20 Lymphocytes 4 % (20-50) L 07/26/17 04:20 Monocytes 2 % (2-10) 07/26/17 04:20 Eosinophils 0 % (0-5) 07/24/17 04:00 Basophils 0 % (0-3) 07/24/17 04:00 Hypochromia 1+ 07/21/17 04:30 Platelet Estimate ADEQUATE (NORMAL) 07/22/17 04:05 Platelet Morphology NORMAL (NORMAL) 07/16/17 04:35 Polychromasia 1+ 07/14/17 05:00 Ovalocytes 1+ 07/21/17 04:30 RBC Morph Micro Appear NORMAL (NORMAL) 07/16/17 04:35 Specimen Source Arterial 07/19/17 19:14 Sample Site RIGHT BRACHIAL 07/19/17 19:14 pH 7.44 (7.35-7.45) 07/19/17 19:14 pCO2 39.0 mmHg (35.0-45.0) 07/19/17 19:14 pO2 179.0 mmHg (80.0-100.0) H 07/19/17 19:14 HCO3 26.7 mEq/L (20.0-26.0) H 07/19/17 19:14 Base Excess 2.2 mEq/L (-3.0-3.0) 07/19/17 19:14 O2 Saturation 100.0 % (92.0-100.0) 07/19/17 19:14 Darius Test Positive 07/19/17 19:14 Vent Rate NA 07/18/17 10:48 Inspired O2 40 07/19/17 19:14 Tidal Volume NA 07/18/17 10:48 PEEP NA 07/18/17 10:48 Pressure (ins/psv/peep) NA 07/18/17 10:48 Critical Value SC 07/19/17 19:14 Sodium 139 mEq/L (136-145) 07/26/17 04:20 Potassium 4.7 mEq/L (3.5-5.1) 07/26/17 04:20 Chloride 101 mEq/L (98-107) 07/26/17 04:20 Carbon Dioxide 32.0 mEq/L (21.0-31.0) H 07/26/17 04:20 Anion Gap 10.7 (7.0-16.0) 07/26/17 04:20 BUN 42 mg/dL (7-25) H 07/26/17 04:20 Creatinine 1.1 mg/dL (0.6-1.2) 07/26/17 04:20 Est GFR ( Amer) TNP 07/26/17 04:20 Est GFR (Non-Af Amer) TNP 07/26/17 04:20 BUN/Creatinine Ratio 38.2 07/26/17 04:20 Glucose 148 mg/dL (70-105) H 07/26/17 04:20 POC Glucose 177 MG/DL (70 - 105) H 07/14/17 11:26 Hemoglobin A1c % 5.2 % (4.0-6.0) 07/17/17 04:33 Whole Bld Lactic Acid 3.99 mmol/L (0.60-1.99) H* 07/05/17 13:00 Calcium 8.8 mg/dL (8.6-10.3) 07/26/17 04:20 Phosphorus 1.5 mg/dL (2.5-5.0) L 07/02/17 05:20 Magnesium 1.7 mg/dL (1.9-2.7) L 07/02/17 05:20 Iron 21 07/03/17 05:48 TIBC 131 07/03/17 05:48 Iron Saturation 16 07/03/17 05:48 Unsaturated IBC 110 07/03/17 05:48 Ferritin 334 ng/mL (15-150) H 07/03/17 05:48 Total Bilirubin 0.5 mg/dL (0.3-1.0) 07/05/17 06:05 AST 16 U/L (13-39) 07/05/17 06:05 ALT 8 U/L (7-52) 07/05/17 06:05 Alkaline Phosphatase 66 U/L (34-104) 07/05/17 06:05 Troponin I 0.09 ng/mL (0.01-0.05) H* D 07/04/17 05:50 B-Natriuretic Peptide 215.0 pg/mL (5.0-100.0) H 07/01/17 14:10 Total Protein 5.6 gm/dL (6.0-8.3) L 07/05/17 06:05 Albumin 2.6 gm/dL (3.7-5.3) L 07/05/17 06:05 Globulin 3.0 gm/dL 07/05/17 06:05 Albumin/Globulin Ratio 0.9 (1.0-1.8) L 07/05/17 06:05 Triglycerides 107 mg/dL (<150) 07/04/17 05:50 Cholesterol 114 mg/dL (<200) 07/04/17 05:50 LDL Cholesterol Direct 59 mg/dL (75-193) L 07/04/17 05:50 HDL Cholesterol 31 mg/dL (23-92) 07/04/17 05:50 TSH 1.46 uIU/ml (0.34-5.60) 07/04/17 05:50 Urine Source CATH 07/05/17 18:30 Urine Color YELLOW 07/05/17 18:30 Urine Clarity CLOUDY (CLEAR) H 07/05/17 18:30 Urine pH 5.5 (4.6 - 8.0) 07/05/17 18:30 Ur Specific Dunbar 1.025 (1.005-1.030) 07/05/17 18:30 Urine Protein 30 mg/dL (NEGATIVE) H 07/05/17 18:30 Urine Glucose (UA) NEGATIVE mg/dL (NEGATIVE) 07/05/17 18:30 Urine Ketones TRACE mg/dL (NEGATIVE) 07/05/17 18:30 Urine Blood SMALL (NEGATIVE) H 07/05/17 18:30 Urine Nitrate NEGATIVE (NEGATIVE) 07/05/17 18:30 Urine Bilirubin NEGATIVE (NEGATIVE) 07/05/17 18:30 Urine Urobilinogen 0.2 E.U./dL (0.2 - 1.0) 07/05/17 18:30 Ur Leukocyte Esterase LARGE (NEGATIVE) H 07/05/17 18:30 Urine RBC 2-5 /hpf (0-5) 07/05/17 18:30 Urine WBC >100 /hpf (0-5) H 07/05/17 18:30 Ur Epithelial Cells FEW /lpf (FEW) 07/05/17 18:30 Urine Bacteria FEW /hpf (NONE SEEN) 07/05/17 18:30 Urine Yeast FEW /hpf (NONE SEEN) H 07/05/17 18:30 Stool Occult Blood POSITIVE (NEGATIVE) H 07/13/17 19:00 Vancomycin Trough 23.1 ug/mL (5-10) H 07/22/17 08:00 Random Vancomycin 23.8 ug/mL (5.0-40.0) 07/24/17 04:00 - Physical Exam Vitals and I&O: Vital Signs Temp 98.8 F 07/26/17 04:00 Pulse 83 07/26/17 06:00 Resp 23 07/26/17 06:00 BP 156/80 07/26/17 06:00 Pulse Ox 100 07/26/17 06:00 Intake & Output 07/25/17 07/26/17 07/26/17 18:59 06:59 18:59 Intake Total 600 700 Output Total 2200 1000 Balance -1600 -300 Weight (lbs) 74.389 kg 69.037 kg Intake: Oral 0 Tube Feeding 600 600 Other 100 Output: Urine 2200 1000 Other: # Bowel Movements 1 Weight Source Bedscale Bedscale Active Medications: Current Medications Acetaminophen (Tylenol) 650 mg PO Q4H PRN PRN Reason: Fever > 101 Stop: 08/30/17 22:06 Last Admin: 07/23/17 10:17 Dose: 650 mg Albuterol/Ipratropium (Duoneb Neb) 3 ml HHN Q4HRT PRN PRN Reason: Wheezing Stop: 08/30/17 22:13 Last Admin: 07/22/17 18:56 Dose: 3 ml Albuterol/Ipratropium (Duoneb Neb) 3 ml HHN Q6HRT SHADI Stop: 08/31/17 00:59 Last Admin: 07/26/17 07:21 Dose: 3 ml Ascorbic Acid (Vitamin C) 500 mg PO DAILY SHADI Stop: 08/31/17 08:59 Last Admin: 07/25/17 09:22 Dose: 500 mg Baclofen (Lioresal) 5 mg PO TID SHADI Stop: 09/06/17 08:59 Last Admin: 07/25/17 20:19 Dose: 5 mg Bisacodyl (Dulcolax 10 Mg Supp) 10 mg RC DAILY PRN PRN Reason: BOWEL CARE MANAGEMENT Stop: 09/20/17 09:14 Budesonide (Pulmicort) 0.5 mg HHN BIDRT SHADI Stop: 08/31/17 18:59 Last Admin: 07/25/17 18:56 Dose: 0.5 mg Cyproheptadine HCl (Periactin) 4 mg PO BID SHADI Stop: 08/31/17 08:59 Last Admin: 07/25/17 17:30 Dose: 4 mg Docusate Sodium (Colace) 100 mg PO BID SHADI Stop: 08/31/17 08:59 Last Admin: 07/25/17 17:30 Dose: 100 mg Ferrous Sulfate (Iron) 325 mg PO BID SHADI Stop: 08/31/17 08:59 Last Admin: 07/25/17 17:30 Dose: 325 mg Folic Acid (Folate) 1 mg PO DAILY SHADI Stop: 08/31/17 08:59 Last Admin: 07/25/17 09:23 Dose: 1 mg Furosemide (Lasix) 20 mg IVP DAILY [facility] Stop: 09/16/17 11:59 Last Admin: 07/25/17 09:23 Dose: 20 mg Norepinephrine Bitartrate 4 mg (/ Sodium Chloride) 254 mls @ 0 mls/hr IV TITR SHADI; Titrate PRN Reason: Protocol Stop: 09/03/17 16:29 Dextrose/Sodium Chloride (D5-0.45ns) 1,000 mls @ 20 mls/hr IV .Q24H [facility] Stop: 09/22/17 09:16 Last Admin: 07/25/17 17:31 Dose: 20 mls/hr Lactobacillus Rhamnosus (Culturelle 15b) 1 each PO DAILY [facility] Stop: 09/01/17 08:59 Last Admin: 07/25/17 09:23 Dose: 1 each Lactulose (Cephulac) 20 gm PO QID PRN PRN Reason: Constipation Stop: 08/30/17 22:18 Last Admin: 07/17/17 17:50 Dose: 20 gm Lorazepam (Ativan) 1 mg IVP Q4HR PRN; Protocol PRN Reason: Anxiety Stop: 09/04/17 08:31 Last Admin: 07/18/17 21:49 Dose: 1 mg Losartan Potassium (Cozaar) 50 mg PO DAILY [facility] Stop: 09/23/17 08:59 Last Admin: 07/25/17 09:22 Dose: 50 mg Methylprednisolone Sodium Succinate (Solu-Medrol) 40 mg IVP Q8HR [facility] Stop: 09/09/17 20:59 Last Admin: 07/26/17 04:53 Dose: 40 mg Miscellaneous (Probiotic Screen) 1 ea MC PRN PRN PRN Reason: PROTOCOL Stop: 09/01/17 08:44 Multivitamins/Vitamin C (Theragran) 1 tab PO DAILY [facility]ADI Stop: 08/31/17 08:59 Last Admin: 07/25/17 09:23 Dose: 1 tab Nicotine (Nicotine Transdermal System) 14 mg TD DAILY [facility]I Stop: 09/04/17 08:59 Last Admin: 07/25/17 09:22 Dose: 14 mg Pantoprazole Sodium (Protonix) 40 mg IVP BID SHADI Stop: 09/13/17 08:59 Last Admin: 07/25/17 17:30 Dose: 40 mg General: Mild distress, Other (NGT FEEDING) HEENT: Atraumatic, Other Neck: Supple, no JVD, no Thyromegaly Cardiovascular: Regular rate, Normal S1, Normal S2, Other (in A fib) Lungs: Other Abdomen: Bowel sounds, Soft, no Tender, no Hepatomegaly Extremities: no Clubbing Neurological: Other (Pt unable to participate in test) Skin: no Rash Psych/Mental Status: Other (no psychosis) - Procedures Procedures: Procedures Procedure Code Date INSERT EMERGENCY AIRWAY 14952 07/01/17 INSERTION OF ENDOTRACHEAL AIRWAY INTO TRACHEA, VIA OPENING [id number] 07/01/17 RESPIRATORY VENTILATION, GREATER THAN 96 CONSECUTIVE HOURS [id number] 07/01/17 VENT MGMT INPAT INIT DAY 61182 07/01/17 Assessment/Plan - Problem List Patient Problems: All Active Problems WEAKESS AND POOR ORAL INTAKE (Acute) - Assessment Assessment: Septic shock A fib with RVR Fail to thrive Stage 4 lung ca Sepsis due to E Coli UTI ME Ch pain syn Anemia of ch ill Hypernatremia Hypokalemia Type 2 NC A fib - Plan Plan: Pt holds a poor progonosis. Been trying to communicate poor prognosis to the son. He wants "everything done. " Cardio, Pulm, and Heme Onc seeing pt, all of whom agree with comfort care/ hospice. On IV Zosyn and Vanco. Has been on Amiodarone and Levphed drip in ICU-now off as off 07/06/17. Intubated on 07/05/17; extubated on night of 07/19/17 Elec corrected. I's and O's reviewed. Pt holds a poor prognosis. Son still wants everything done. No drips. Pt responsive. Weaning tried on 07/10/17, but could not tolerate it. But ultimately extubated on 07/19/17. Hgb dropping. Holding Xarelto as of 07/11/17. Checked stool OB times 2-both postive. GI on the case. FU on CBC and Chem 7. Again, advised son of the grave prognosis and the fact that pt has poor quality of life and it will not improve. He still wants "everything done." As of 07/18/17, she was on CPAP, then extubated night on 07/19/17. Consider swallow eval tomorrow when she's more alert. GI following for stool OB times 2. However, pt too unstable for procedure per GI. SNF eval. Son doesn't want GT. Pt failed swallow eval on 07/22/17. She's now tele status. Will repeat swallow eval today. Son refusing to make up mind between GT and hospice. Nutritional Asmnt/Malnutr-PDOC - Dietary Evaluation Malnutrition Findings (Please click <Entered> for more info): Nutritional Asmnt/Malnutrition Start: 07/03/17 13: 22 Text: Status: Complete Freq: Document 07/03/17 13:22 MMULJENN (Rec: 07/03/17 13:35 [email or web address] ELLER- [email or web address]) Nutritional Asmnt/Malnutrition Patient General Information Nutritional Screening Consult Diagnosis UTI, Failure to thrive, hypokalemia Pertinent Medical Hx/Surgical Hx CAD, HTN, COPD, Stage 4 lung cancer, peripheral neuropathy, constipation, GERD, anxiety, low back pain Subjective Information Consult received for Failure to Thrive. Current Diet Order/ Nutrition Support Regular diet, pureed with mechaical soft Patient / S.O Not Indicated Pertinent Medications Vitamin C, dulcolax, D5-0.45 NS @ 75 ml/hr, colace, iron, folate, lactulose, theragran Pertinent Labs (07/02) P 1.5, Mg 1.7, albumin 2.9 Nutritional Hx/Data Height 1.6 m Height (Calculated Centimeters) 160.0 Current Weight (lbs) 54.885 kg Weight (Calculated Kilograms) 54.9 Weight (Calculated Grams) 87384.7 Coleman Body Weight 115 % Coleman Body Weight 105 Body Mass Index (BMI) 21.4 Recent Weight Change No Weight Status Approriate GI Symptoms GI Symptoms None Last BM Prior to admission Difficult in: None Food Allergies No Cultural/Ethnic/Orthodox Belief None indicated Skin Integrity/Comment: Pradeep 15 Current %PO Poor (25-49%) Estimated Nutritional Goals BEE in Kcals: Using Current wt Calories/Kcals/Kg 55kg CBW (25-30kcal/kg) Kcals Calculated 3025-0263 kcal/day Protein: Using Current wt Protein g/k-1.2 gm/kg Protein Calculated 55-65 gm/day Fluid: ml 3169-6237 ml/day (1 ml/kcal) Nutritional Problem 2. Problem Problem Inadequate oral intake related to Etiology poor appetite aeb Signs/Symptoms: meeting <75% of estimated nutrient needs 1. Problem Problem Altered nutrition related lab values related to Etiology electrolyte imbalance aeb Signs/Symptoms: P 1.5, Mg 1.7 Intervention/Recommendation Comments 1. Continue pureed diet as tolerated by patient. 2. RN To assist with feedings and encourage oral intake. 3. Consider adding Boost plus between meals to optimize calorie and protein intake. Expected Outcomes/Goals Expected Outcomes/Goals Oral intake to meet >75% of needs, weight stable, nutrition labs WNL F/U MR 07/06-
[2017-07-26] MEDS: Budesonide 0.5 Mg/2 mL Ud HHN SCH ×2 (07:29→19:08)
[2017-07-26] MEDS: Ferrous Sulfate 325 MG TAB PO SCH ×2 (09:17→17:18)
[2017-07-26] MEDS: Nicotine 14 mg/24 hr Tdm TD SCH (09:18)
[2017-07-26] MEDS: Lactobacillus Rhamnosus GG 15 Billion CFU CAP.SPRINK PO SCH (09:18)
[2017-07-26] MEDS: Multivitamin Tab PO SCH (09:18)
[2017-07-26] MEDS: D5-0.45NS 1,000 ML IV SCH (09:19)
[2017-07-26] MEDS: Cyproheptadine 4 mg Tab PO SCH ×2 (09:22→17:18)
--- NOTE | 2017-07-26 12:31 | Infectious Disease Prog Note ---
Infectious Disease Subjective - Review of Systems Service Date: 07/26/17 Subjective: There is no new change. Patient remains off vent. Failed swallow eval. Family refused peg placement. Low grade fever. leukocytosis is worse today, likely reactive. Infectious Disease Objective - Results Result Diagrams: 07/26/17 04:20 07/26/17 04:20 Recent Labs: Laboratory Last Values WBC 21.7 Th/cmm (4.8-10.8) H* 07/26/17 04:20 RBC 2.86 Mil/cmm (3.80-5.20) L 07/26/17 04:20 Hgb 8.4 gm/dL (12-16) L 07/26/17 04:20 Hct 25.5 % (41.0-60) L 07/26/17 04:20 MCV 89.3 fl (81-100) 07/26/17 04:20 MCH 29.5 pg (27.0-31.0) 07/26/17 04:20 MCHC Differential 33.0 pg (28.0-36.0) 07/26/17 04:20 RDW 16.1 % (11.5-20.0) 07/26/17 04:20 Plt Count 303 Th/cmm (150-400) 07/26/17 04:20 MPV 7.2 fl 07/26/17 04:20 Neutrophils % 95.6 % (40.0-80.0) H 07/25/17 04:20 Band Neutrophils % 5 % (0-10) 07/26/17 04:20 Lymphocytes % 2.3 % (20.0-50.0) L 07/25/17 04:20 Monocytes % 1.8 % (2.0-10.0) L 07/25/17 04:20 Eosinophils % 0.3 % (0.0-5.0) 07/25/17 04:20 Basophils % 0.0 % (0.0-2.0) 07/25/17 04:20 Neutrophils (Manual) 89 % (40-80) H 07/26/17 04:20 Lymphocytes 4 % (20-50) L 07/26/17 04:20 Monocytes 2 % (2-10) 07/26/17 04:20 Eosinophils 0 % (0-5) 07/24/17 04:00 Basophils 0 % (0-3) 07/24/17 04:00 Hypochromia 1+ 07/21/17 04:30 Platelet Estimate ADEQUATE (NORMAL) 07/22/17 04:05 Platelet Morphology NORMAL (NORMAL) 07/16/17 04:35 Polychromasia 1+ 07/14/17 05:00 Ovalocytes 1+ 07/21/17 04:30 RBC Morph Micro Appear NORMAL (NORMAL) 07/16/17 04:35 Specimen Source Arterial 07/19/17 19:14 Sample Site RIGHT BRACHIAL 07/19/17 19:14 pH 7.44 (7.35-7.45) 07/19/17 19:14 pCO2 39.0 mmHg (35.0-45.0) 07/19/17 19:14 pO2 179.0 mmHg (80.0-100.0) H 07/19/17 19:14 HCO3 26.7 mEq/L (20.0-26.0) H 07/19/17 19:14 Base Excess 2.2 mEq/L (-3.0-3.0) 07/19/17 19:14 O2 Saturation 100.0 % (92.0-100.0) 07/19/17 19:14 Darius Test Positive 07/19/17 19:14 Vent Rate NA 07/18/17 10:48 Inspired O2 40 07/19/17 19:14 Tidal Volume NA 07/18/17 10:48 PEEP NA 07/18/17 10:48 Pressure (ins/psv/peep) NA 07/18/17 10:48 Critical Value SC 07/19/17 19:14 Sodium 139 mEq/L (136-145) 07/26/17 04:20 Potassium 4.7 mEq/L (3.5-5.1) 07/26/17 04:20 Chloride 101 mEq/L (98-107) 07/26/17 04:20 Carbon Dioxide 32.0 mEq/L (21.0-31.0) H 07/26/17 04:20 Anion Gap 10.7 (7.0-16.0) 07/26/17 04:20 BUN 42 mg/dL (7-25) H 07/26/17 04:20 Creatinine 1.1 mg/dL (0.6-1.2) 07/26/17 04:20 Est GFR ( Amer) TNP 07/26/17 04:20 Est GFR (Non-Af Amer) TNP 07/26/17 04:20 BUN/Creatinine Ratio 38.2 07/26/17 04:20 Glucose 148 mg/dL (70-105) H 07/26/17 04:20 POC Glucose 177 MG/DL (70 - 105) H 07/14/17 11:26 Hemoglobin A1c % 5.2 % (4.0-6.0) 07/17/17 04:33 Whole Bld Lactic Acid 3.99 mmol/L (0.60-1.99) H* 07/05/17 13:00 Calcium 8.8 mg/dL (8.6-10.3) 07/26/17 04:20 Phosphorus 1.5 mg/dL (2.5-5.0) L 07/02/17 05:20 Magnesium 1.7 mg/dL (1.9-2.7) L 07/02/17 05:20 Iron 21 07/03/17 05:48 TIBC 131 07/03/17 05:48 Iron Saturation 16 07/03/17 05:48 Unsaturated IBC 110 07/03/17 05:48 Ferritin 334 ng/mL (15-150) H 07/03/17 05:48 Total Bilirubin 0.5 mg/dL (0.3-1.0) 07/05/17 06:05 AST 16 U/L (13-39) 07/05/17 06:05 ALT 8 U/L (7-52) 07/05/17 06:05 Alkaline Phosphatase 66 U/L (34-104) 07/05/17 06:05 Troponin I 0.09 ng/mL (0.01-0.05) H* D 07/04/17 05:50 B-Natriuretic Peptide 215.0 pg/mL (5.0-100.0) H 07/01/17 14:10 Total Protein 5.6 gm/dL (6.0-8.3) L 07/05/17 06:05 Albumin 2.6 gm/dL (3.7-5.3) L 07/05/17 06:05 Globulin 3.0 gm/dL 07/05/17 06:05 Albumin/Globulin Ratio 0.9 (1.0-1.8) L 07/05/17 06:05 Triglycerides 107 mg/dL (<150) 07/04/17 05:50 Cholesterol 114 mg/dL (<200) 07/04/17 05:50 LDL Cholesterol Direct 59 mg/dL (75-193) L 07/04/17 05:50 HDL Cholesterol 31 mg/dL (23-92) 07/04/17 05:50 TSH 1.46 uIU/ml (0.34-5.60) 07/04/17 05:50 Urine Source CATH 07/05/17 18:30 Urine Color YELLOW 07/05/17 18:30 Urine Clarity CLOUDY (CLEAR) H 07/05/17 18:30 Urine pH 5.5 (4.6 - 8.0) 07/05/17 18:30 Ur Specific [place] 1.025 (1.005-1.030) 07/05/17 18:30 Urine Protein 30 mg/dL (NEGATIVE) H 07/05/17 18:30 Urine Glucose (UA) NEGATIVE mg/dL (NEGATIVE) 07/05/17 18:30 Urine Ketones TRACE mg/dL (NEGATIVE) 07/05/17 18:30 Urine Blood SMALL (NEGATIVE) H 07/05/17 18:30 Urine Nitrate NEGATIVE (NEGATIVE) 07/05/17 18:30 Urine Bilirubin NEGATIVE (NEGATIVE) 07/05/17 18:30 Urine Urobilinogen 0.2 E.U./dL (0.2 - 1.0) 07/05/17 18:30 Ur Leukocyte Esterase LARGE (NEGATIVE) H 07/05/17 18:30 Urine RBC 2-5 /hpf (0-5) 07/05/17 18:30 Urine WBC >100 /hpf (0-5) H 07/05/17 18:30 Ur Epithelial Cells FEW /lpf (FEW) 07/05/17 18:30 Urine Bacteria FEW /hpf (NONE SEEN) 07/05/17 18:30 Urine Yeast FEW /hpf (NONE SEEN) H 07/05/17 18:30 Stool Occult Blood POSITIVE (NEGATIVE) H 07/13/17 19:00 Vancomycin Trough 23.1 ug/mL (5-10) H 07/22/17 08:00 Random Vancomycin 23.8 ug/mL (5.0-40.0) 07/24/17 04:00 - Physical Exam Vitals and I&O: Vital Signs Temp 98.8 F 05/08/18 04:00 Pulse 94 07/26/17 09:17 Resp 18 07/26/17 11:02 BP 148/77 07/26/17 09:20 Pulse Ox 99 07/26/17 07:29 Intake & Output 07/25/17 07/26/17 07/26/17 18:59 06:59 18:59 Intake Total 600 700 316 Output Total 2200 1000 Balance -1600 -300 316 Weight (lbs) 74.389 kg 69.037 kg Intake: Intake, IV Amount 316 D5-0.45NS 1,000 ml @ 20 316 mls/hr IV .Q24H [facility] Rx#: [id number] Oral 0 Tube Feeding 600 600 Other 100 Output: Urine 2200 1000 Other: # Bowel Movements 1 Stool Characteristics Soft Weight Source Bedscale Bedscale Active Medications: Current Medications Acetaminophen (Tylenol) 650 mg PO Q4H PRN PRN Reason: Fever > 101 Stop: 08/30/17 22:06 Last Admin: 07/23/17 10:17 Dose: 650 mg Albuterol/Ipratropium (Duoneb Neb) 3 ml HHN Q4HRT PRN PRN Reason: Wheezing Stop: 08/30/17 22:13 Last Admin: 07/22/17 18:56 Dose: 3 ml Albuterol/Ipratropium (Duoneb Neb) 3 ml HHN Q6HRT [facility] Stop: 08/31/17 00:59 Last Admin: 07/26/17 07:21 Dose: 3 ml Ascorbic Acid (Vitamin C) 500 mg PO DAILY [facility] Stop: 08/31/17 08:59 Last Admin: 07/26/17 09:17 Dose: 500 mg Baclofen (Lioresal) 5 mg PO TID [facility] Stop: 09/06/17 08:59 Last Admin: 07/26/17 09:17 Dose: 5 mg Bisacodyl (Dulcolax 10 Mg Supp) 10 mg RC DAILY PRN PRN Reason: BOWEL CARE MANAGEMENT Stop: 09/20/17 09:14 Budesonide (Pulmicort) 0.5 mg HHN BIDRT [facility] Stop: 08/31/17 18:59 Last Admin: 07/26/17 07:29 Dose: 0.5 mg Cyproheptadine HCl (Periactin) 4 mg PO BID [facility] Stop: 08/31/17 08:59 Last Admin: 07/26/17 09:22 Dose: 4 mg Docusate Sodium (Colace) 100 mg PO BID [facility] Stop: 08/31/17 08:59 Last Admin: 07/26/17 09:18 Dose: 100 mg Ferrous Sulfate (Iron) 325 mg PO BID [facility] Stop: 08/31/17 08:59 Last Admin: 07/26/17 09:17 Dose: 325 mg Folic Acid (Folate) 1 mg PO DAILY [facility] Stop: 08/31/17 08:59 Last Admin: 07/26/17 09:18 Dose: 1 mg Furosemide (Lasix) 20 mg IVP DAILY [facility] Stop: 09/16/17 11:59 Last Admin: 07/26/17 09:20 Dose: 20 mg Norepinephrine Bitartrate 4 mg (/ Sodium Chloride) 254 mls @ 0 mls/hr IV TITR [facility]; Titrate PRN Reason: Protocol Stop: 09/03/17 16:29 Dextrose/Sodium Chloride (D5-0.45ns) 1,000 mls @ 20 mls/hr IV .Q24H [facility] Stop: 09/22/17 09:16 Last Admin: 07/26/17 09:19 Dose: 20 mls/hr Lactobacillus Rhamnosus (Culturelle 15b) 1 each PO DAILY [facility] Stop: 09/01/17 08:59 Last Admin: 07/26/17 09:18 Dose: 1 each Lactulose (Cephulac) 20 gm PO QID PRN PRN Reason: Constipation Stop: 08/30/17 22:18 Last Admin: 07/17/17 17:50 Dose: 20 gm Lorazepam (Ativan) 1 mg IVP Q4HR PRN; Protocol PRN Reason: Anxiety Stop: 09/04/17 08:31 Last Admin: 07/18/17 21:49 Dose: 1 mg Losartan Potassium (Cozaar) 50 mg PO DAILY [facility] Stop: 09/23/17 08:59 Last Admin: 07/26/17 09:17 Dose: 50 mg Methylprednisolone Sodium Succinate (Solu-Medrol) 40 mg IVP Q8HR [facility] Stop: 09/09/17 20:59 Last Admin: 07/26/17 04:53 Dose: 40 mg Miscellaneous (Probiotic Screen) 1 ea MC PRN PRN PRN Reason: PROTOCOL Stop: 09/01/17 08:44 Multivitamins/Vitamin C (Theragran) 1 tab PO DAILY [facility] Stop: 08/31/17 08:59 Last Admin: 07/26/17 09:18 Dose: 1 tab Nicotine (Nicotine Transdermal System) 14 mg TD DAILY [facility] Stop: 09/04/17 08:59 Last Admin: 07/26/17 09:18 Dose: 14 mg Pantoprazole Sodium (Protonix) 40 mg IVP BID [facility] Stop: 09/13/17 08:59 Last Admin: 07/26/17 09:18 Dose: 40 mg - Procedures Procedures: Procedures Procedure Code Date INSERT EMERGENCY AIRWAY 48792 07/01/17 INSERTION OF ENDOTRACHEAL AIRWAY INTO TRACHEA, VIA OPENING [id number] 07/01/17 RESPIRATORY VENTILATION, GREATER THAN 96 CONSECUTIVE HOURS [id number] 07/01/17 VENT MGMT INPAT INIT DAY 61029 07/01/17 Infectious Disease Assmt/Plan - Problem List Patient Problems: All Active Problems WEAKESS AND POOR ORAL INTAKE (Acute) - Assessment Assessment: 1. Leukocytosis. worse, suspect reactive to CA, 2. Pneumonia. trated twice. 3. Stage IV lung CA. 4. Protein calorie malnutrion, 5. VDRF. 6. ALTERED MENTAL STATUS. - Plan Plan: off antibiotics, will monitor. Poor prognosis. Nutritional Asmnt/Malnutr-PDOC - Dietary Evaluation Malnutrition Findings (Please click <Entered> for more info): Nutritional Asmnt/Malnutrition Start: 07/03/17 13: 22 Text: Status: Complete Freq: Document 07/03/17 13:22 URBAN (Rec: 07/03/17 13:35 [facility] Nutritional Asmnt/Malnutrition Patient General Information Nutritional Screening Consult Diagnosis UTI, Failure to thrive, hypokalemia Pertinent Medical Hx/Surgical Hx CAD, HTN, COPD, Stage 4 lung cancer, peripheral neuropathy, constipation, GERD, anxiety, low back pain Subjective Information Consult received for Failure to Thrive. Current Diet Order/ Nutrition Support Regular diet, pureed with mechaical soft Patient / S.O Not Indicated Pertinent Medications Vitamin C, dulcolax, D5-0.45 NS @ 75 ml/hr, colace, iron, folate, lactulose, theragran Pertinent Labs (07/02) P 1.5, Mg 1.7, albumin 2.9 Nutritional Hx/Data Height 1.6 m Height (Calculated Centimeters) 160.0 Current Weight (lbs) 54.885 kg Weight (Calculated Kilograms) 54.9 Weight (Calculated Grams) 84506.7 [place] Body Weight 115 % [place] Body Weight 105 Body Mass Index (BMI) 21.4 Recent Weight Change No Weight Status Approriate GI Symptoms GI Symptoms None Last BM Prior to admission Difficult in: None Food Allergies No Cultural/Ethnic/Yarsanism Belief None indicated Skin Integrity/Comment: Pradeep 15 Current %PO Poor (25-49%) Estimated Nutritional Goals BEE in Kcals: Using Current wt Calories/Kcals/Kg 55kg CBW (25-30kcal/kg) Kcals Calculated 5345-6782 kcal/day Protein: Using Current wt Protein g/k-1.2 gm/kg Protein Calculated 55-65 gm/day Fluid: ml 8486-9681 ml/day (1 ml/kcal) Nutritional Problem 2. Problem Problem Inadequate oral intake related to Etiology poor appetite aeb Signs/Symptoms: meeting <75% of estimated nutrient needs 1. Problem Problem Altered nutrition related lab values related to Etiology electrolyte imbalance aeb Signs/Symptoms: P 1.5, Mg 1.7 Intervention/Recommendation Comments 1. Continue pureed diet as tolerated by patient. 2. RN To assist with feedings and encourage oral intake. 3. Consider adding Boost plus between meals to optimize calorie and protein intake. Expected Outcomes/Goals Expected Outcomes/Goals Oral intake to meet >75% of needs, weight stable, nutrition labs WNL F/U MR 07/06-
--- NOTE | 2017-07-26 13:20 | GI Progress Note ---
Subjective - Review of Systems Subjective: NO ACTIVE BLEEDING HAS NGT Objective - Results Result Diagrams: 07/26/17 04:20 07/26/17 04:20 Recent Labs: Laboratory Last Values WBC 21.7 Th/cmm (4.8-10.8) H* 07/26/17 04:20 RBC 2.86 Mil/cmm (3.80-5.20) L 07/26/17 04:20 Hgb 8.4 gm/dL (12-16) L 07/26/17 04:20 Hct 25.5 % (41.0-60) L 07/26/17 04:20 MCV 89.3 fl (81-100) 07/26/17 04:20 MCH 29.5 pg (27.0-31.0) 07/26/17 04:20 MCHC Differential 33.0 pg (28.0-36.0) 07/26/17 04:20 RDW 16.1 % (11.5-20.0) 07/26/17 04:20 Plt Count 303 Th/cmm (150-400) 07/26/17 04:20 MPV 7.2 fl 07/26/17 04:20 Neutrophils % 95.6 % (40.0-80.0) H 07/25/17 04:20 Band Neutrophils % 5 % (0-10) 07/26/17 04:20 Lymphocytes % 2.3 % (20.0-50.0) L 07/25/17 04:20 Monocytes % 1.8 % (2.0-10.0) L 07/25/17 04:20 Eosinophils % 0.3 % (0.0-5.0) 07/25/17 04:20 Basophils % 0.0 % (0.0-2.0) 07/25/17 04:20 Neutrophils (Manual) 89 % (40-80) H 07/26/17 04:20 Lymphocytes 4 % (20-50) L 07/26/17 04:20 Monocytes 2 % (2-10) 07/26/17 04:20 Eosinophils 0 % (0-5) 07/24/17 04:00 Basophils 0 % (0-3) 07/24/17 04:00 Hypochromia 1+ 07/21/17 04:30 Platelet Estimate ADEQUATE (NORMAL) 07/22/17 04:05 Platelet Morphology NORMAL (NORMAL) 07/16/17 04:35 Polychromasia 1+ 07/14/17 05:00 Ovalocytes 1+ 07/21/17 04:30 RBC Morph Micro Appear NORMAL (NORMAL) 07/16/17 04:35 Specimen Source Arterial 07/19/17 19:14 Sample Site RIGHT BRACHIAL 07/19/17 19:14 pH 7.44 (7.35-7.45) 07/19/17 19:14 pCO2 39.0 mmHg (35.0-45.0) 07/19/17 19:14 pO2 179.0 mmHg (80.0-100.0) H 07/19/17 19:14 HCO3 26.7 mEq/L (20.0-26.0) H 07/19/17 19:14 Base Excess 2.2 mEq/L (-3.0-3.0) 07/19/17 19:14 O2 Saturation 100.0 % (92.0-100.0) 07/19/17 19:14 Darius Test Positive 07/19/17 19:14 Vent Rate NA 07/18/17 10:48 Inspired O2 40 07/19/17 19:14 Tidal Volume NA 07/18/17 10:48 PEEP NA 07/18/17 10:48 Pressure (ins/psv/peep) NA 07/18/17 10:48 Critical Value SC 07/19/17 19:14 Sodium 139 mEq/L (136-145) 07/26/17 04:20 Potassium 4.7 mEq/L (3.5-5.1) 07/26/17 04:20 Chloride 101 mEq/L (98-107) 07/26/17 04:20 Carbon Dioxide 32.0 mEq/L (21.0-31.0) H 07/26/17 04:20 Anion Gap 10.7 (7.0-16.0) 07/26/17 04:20 BUN 42 mg/dL (7-25) H 07/26/17 04:20 Creatinine 1.1 mg/dL (0.6-1.2) 07/26/17 04:20 Est GFR ( Amer) TNP 07/26/17 04:20 Est GFR (Non-Af Amer) TNP 07/26/17 04:20 BUN/Creatinine Ratio 38.2 07/26/17 04:20 Glucose 148 mg/dL (70-105) H 07/26/17 04:20 POC Glucose 177 MG/DL (70 - 105) H 07/14/17 11:26 Hemoglobin A1c % 5.2 % (4.0-6.0) 07/17/17 04:33 Whole Bld Lactic Acid 3.99 mmol/L (0.60-1.99) H* 07/05/17 13:00 Calcium 8.8 mg/dL (8.6-10.3) 07/26/17 04:20 Phosphorus 1.5 mg/dL (2.5-5.0) L 07/02/17 05:20 Magnesium 1.7 mg/dL (1.9-2.7) L 07/02/17 05:20 Iron 21 07/03/17 05:48 TIBC 131 07/03/17 05:48 Iron Saturation 16 07/03/17 05:48 Unsaturated IBC 110 07/03/17 05:48 Ferritin 334 ng/mL (15-150) H 07/03/17 05:48 Total Bilirubin 0.5 mg/dL (0.3-1.0) 07/05/17 06:05 AST 16 U/L (13-39) 07/05/17 06:05 ALT 8 U/L (7-52) 07/05/17 06:05 Alkaline Phosphatase 66 U/L (34-104) 07/05/17 06:05 Troponin I 0.09 ng/mL (0.01-0.05) H* D 07/04/17 05:50 B-Natriuretic Peptide 215.0 pg/mL (5.0-100.0) H 07/01/17 14:10 Total Protein 5.6 gm/dL (6.0-8.3) L 07/05/17 06:05 Albumin 2.6 gm/dL (3.7-5.3) L 07/05/17 06:05 Globulin 3.0 gm/dL 07/05/17 06:05 Albumin/Globulin Ratio 0.9 (1.0-1.8) L 07/05/17 06:05 Triglycerides 107 mg/dL (<150) 07/04/17 05:50 Cholesterol 114 mg/dL (<200) 07/04/17 05:50 LDL Cholesterol Direct 59 mg/dL (75-193) L 07/04/17 05:50 HDL Cholesterol 31 mg/dL (23-92) 07/04/17 05:50 TSH 1.46 uIU/ml (0.34-5.60) 07/04/17 05:50 Urine Source CATH 07/05/17 18:30 Urine Color YELLOW 07/05/17 18:30 Urine Clarity CLOUDY (CLEAR) H 07/05/17 18:30 Urine pH 5.5 (4.6 - 8.0) 07/05/17 18:30 Ur Specific [place] 1.025 (1.005-1.030) 07/05/17 18:30 Urine Protein 30 mg/dL (NEGATIVE) H 07/05/17 18:30 Urine Glucose (UA) NEGATIVE mg/dL (NEGATIVE) 07/05/17 18:30 Urine Ketones TRACE mg/dL (NEGATIVE) 07/05/17 18:30 Urine Blood SMALL (NEGATIVE) H 07/05/17 18:30 Urine Nitrate NEGATIVE (NEGATIVE) 07/05/17 18:30 Urine Bilirubin NEGATIVE (NEGATIVE) 07/05/17 18:30 Urine Urobilinogen 0.2 E.U./dL (0.2 - 1.0) 07/05/17 18:30 Ur Leukocyte Esterase LARGE (NEGATIVE) H 07/05/17 18:30 Urine RBC 2-5 /hpf (0-5) 07/05/17 18:30 Urine WBC >100 /hpf (0-5) H 07/05/17 18:30 Ur Epithelial Cells FEW /lpf (FEW) 07/05/17 18:30 Urine Bacteria FEW /hpf (NONE SEEN) 07/05/17 18:30 Urine Yeast FEW /hpf (NONE SEEN) H 07/05/17 18:30 Stool Occult Blood POSITIVE (NEGATIVE) H 07/13/17 19:00 Vancomycin Trough 23.1 ug/mL (5-10) H 07/22/17 08:00 Random Vancomycin 23.8 ug/mL (5.0-40.0) 07/24/17 04:00 - Physical Exam Vitals and I&O: Vital Signs Temp 98.8 F 07/26/17 04:00 Pulse 94 07/26/17 09:17 Resp 18 07/26/17 11:02 BP 148/77 07/26/17 09:20 Pulse Ox 99 07/26/17 07:29 Intake & Output 07/25/17 07/26/17 07/26/17 18:59 06:59 18:59 Intake Total 600 700 316 Output Total 2200 1000 Balance -1600 -300 316 Weight (lbs) 74.389 kg 69.037 kg Intake: Intake, IV Amount 316 D5-0.45NS 1,000 ml @ 20 316 mls/hr IV .Q24H [facility] Rx#: [id number] Oral 0 Tube Feeding 600 600 Other 100 Output: Urine 2200 1000 Other: # Bowel Movements 1 Stool Characteristics Soft Weight Source Bedscale Bedscale Active Medications: Current Medications Acetaminophen (Tylenol) 650 mg PO Q4H PRN PRN Reason: Fever > 101 Stop: 08/30/17 22:06 Last Admin: 07/23/17 10:17 Dose: 650 mg Albuterol/Ipratropium (Duoneb Neb) 3 ml HHN Q4HRT PRN PRN Reason: Wheezing Stop: 08/30/17 22:13 Last Admin: 07/22/17 18:56 Dose: 3 ml Albuterol/Ipratropium (Duoneb Neb) 3 ml HHN Q6HRT [facility] Stop: 08/31/17 00:59 Last Admin: 07/26/17 07:21 Dose: 3 ml Ascorbic Acid (Vitamin C) 500 mg PO DAILY [facility] Stop: 08/31/17 08:59 Last Admin: 07/26/17 09:17 Dose: 500 mg Baclofen (Lioresal) 5 mg PO TID [facility] Stop: 09/06/17 08:59 Last Admin: 07/26/17 09:17 Dose: 5 mg Bisacodyl (Dulcolax 10 Mg Supp) 10 mg RC DAILY PRN PRN Reason: BOWEL CARE MANAGEMENT Stop: 09/20/17 09:14 Budesonide (Pulmicort) 0.5 mg HHN BIDRT [facility] Stop: 08/31/17 18:59 Last Admin: 07/26/17 07:29 Dose: 0.5 mg Cyproheptadine HCl (Periactin) 4 mg PO BID [facility] Stop: 08/31/17 08:59 Last Admin: 07/26/17 09:22 Dose: 4 mg Docusate Sodium (Colace) 100 mg PO BID [facility] Stop: 08/31/17 08:59 Last Admin: 07/26/17 09:18 Dose: 100 mg Ferrous Sulfate (Iron) 325 mg PO BID [facility] Stop: 08/31/17 08:59 Last Admin: 07/26/17 09:17 Dose: 325 mg Folic Acid (Folate) 1 mg PO DAILY [facility] Stop: 08/31/17 08:59 Last Admin: 07/26/17 09:18 Dose: 1 mg Furosemide (Lasix) 20 mg IVP DAILY [facility] Stop: 09/16/17 11:59 Last Admin: 07/26/17 09:20 Dose: 20 mg Norepinephrine Bitartrate 4 mg (/ Sodium Chloride) 254 mls @ 0 mls/hr IV TITR [facility]; Titrate PRN Reason: Protocol Stop: 09/03/17 16:29 Dextrose/Sodium Chloride (D5-0.45ns) 1,000 mls @ 20 mls/hr IV .Q24H [facility] Stop: 09/22/17 09:16 Last Admin: 07/26/17 09:19 Dose: 20 mls/hr Lactobacillus Rhamnosus (Culturelle 15b) 1 each PO DAILY [facility] Stop: 09/01/17 08:59 Last Admin: 07/26/17 09:18 Dose: 1 each Lactulose (Cephulac) 20 gm PO QID PRN PRN Reason: Constipation Stop: 08/30/17 22:18 Last Admin: 07/17/17 17:50 Dose: 20 gm Lorazepam (Ativan) 1 mg IVP Q4HR PRN; Protocol PRN Reason: Anxiety Stop: 09/04/17 08:31 Last Admin: 07/18/17 21:49 Dose: 1 mg Losartan Potassium (Cozaar) 50 mg PO DAILY [facility] Stop: 09/23/17 08:59 Last Admin: 07/26/17 09:17 Dose: 50 mg Methylprednisolone Sodium Succinate (Solu-Medrol) 40 mg IVP Q8HR [facility] Stop: 09/09/17 20:59 Last Admin: 07/26/17 04:53 Dose: 40 mg Miscellaneous (Probiotic Screen) 1 ea MC PRN PRN PRN Reason: PROTOCOL Stop: 09/01/17 08:44 Multivitamins/Vitamin C (Theragran) 1 tab PO DAILY [facility] Stop: 08/31/17 08:59 Last Admin: 07/26/17 09:18 Dose: 1 tab Nicotine (Nicotine Transdermal System) 14 mg TD DAILY [facility] Stop: 09/04/17 08:59 Last Admin: 07/26/17 09:18 Dose: 14 mg Pantoprazole Sodium (Protonix) 40 mg IVP BID [facility] Stop: 09/13/17 08:59 Last Admin: 07/26/17 09:18 Dose: 40 mg General: Mild distress, Other (NGT FEEDING) HEENT: Atraumatic, Other Neck: Supple, no JVD, no Thyromegaly Cardiovascular: Regular rate, Normal S1, Normal S2, Other (in A fib) Lungs: Other Abdomen: Bowel sounds, Soft, no Tender, no Hepatomegaly Extremities: no Clubbing Neurological: Other (Pt unable to participate in test) Skin: no Rash Psych/Mental Status: Other (no psychosis) - Procedures Procedures: Procedures Procedure Code Date INSERT EMERGENCY AIRWAY 42407 07/01/17 INSERTION OF ENDOTRACHEAL AIRWAY INTO TRACHEA, VIA OPENING [id number] 07/01/17 RESPIRATORY VENTILATION, GREATER THAN 96 CONSECUTIVE HOURS [id number] 07/01/17 VENT MGMT INPAT INIT DAY 13384 07/01/17 Assessment/Plan - Problem List Patient Problems: All Active Problems WEAKESS AND POOR ORAL INTAKE (Acute) - Assessment Assessment: 87 YO FEMALE WITH LUNG CA ANEMIA WITH OB + STOOL NO ACTIVE BLEEDING ENDOSCOPIC WORK UP CAN BE DONE HOWEVER PT IS HIGH RISK PER STAFF FAMILY DOES NOT WANT PEG 1.FOLLOW H/H; TRANSFUSE PRN 2.CONT PROTONIX 3.CONSIDER ENDOSCOPIC WORK UP IF ACTIVE BLEED OR SIG DROP IN HGB
--- NOTE | 2017-07-26 15:57 | General Progress Note ---
Subjective - Review of Systems Service Date: 07/26/17 Subjective: unresponsive, opens eyes off vent. EXTubated, NGT feeding Objective - Results Result Diagrams: 07/26/17 04:20 07/26/17 04:20 Recent Labs: Laboratory Last Values WBC 21.7 Th/cmm (4.8-10.8) H* 07/26/17 04:20 RBC 2.86 Mil/cmm (3.80-5.20) L 07/26/17 04:20 Hgb 8.4 gm/dL (12-16) L 07/26/17 04:20 Hct 25.5 % (41.0-60) L 07/26/17 04:20 MCV 89.3 fl (81-100) 07/26/17 04:20 MCH 29.5 pg (27.0-31.0) 07/26/17 04:20 MCHC Differential 33.0 pg (28.0-36.0) 07/26/17 04:20 RDW 16.1 % (11.5-20.0) 07/26/17 04:20 Plt Count 303 Th/cmm (150-400) 07/26/17 04:20 MPV 7.2 fl 07/26/17 04:20 Neutrophils % 95.6 % (40.0-80.0) H 07/25/17 04:20 Band Neutrophils % 5 % (0-10) 07/26/17 04:20 Lymphocytes % 2.3 % (20.0-50.0) L 07/25/17 04:20 Monocytes % 1.8 % (2.0-10.0) L 07/25/17 04:20 Eosinophils % 0.3 % (0.0-5.0) 07/25/17 04:20 Basophils % 0.0 % (0.0-2.0) 07/25/17 04:20 Neutrophils (Manual) 89 % (40-80) H 07/26/17 04:20 Lymphocytes 4 % (20-50) L 07/26/17 04:20 Monocytes 2 % (2-10) 07/26/17 04:20 Eosinophils 0 % (0-5) 07/24/17 04:00 Basophils 0 % (0-3) 07/24/17 04:00 Hypochromia 1+ 07/21/17 04:30 Platelet Estimate ADEQUATE (NORMAL) 07/22/17 04:05 Platelet Morphology NORMAL (NORMAL) 07/16/17 04:35 Polychromasia 1+ 07/14/17 05:00 Ovalocytes 1+ 07/21/17 04:30 RBC Morph Micro Appear NORMAL (NORMAL) 07/16/17 04:35 Specimen Source Arterial 07/19/17 19:14 Sample Site RIGHT BRACHIAL 07/19/17 19:14 pH 7.44 (7.35-7.45) 07/19/17 19:14 pCO2 39.0 mmHg (35.0-45.0) 07/19/17 19:14 pO2 179.0 mmHg (80.0-100.0) H 07/19/17 19:14 HCO3 26.7 mEq/L (20.0-26.0) H 07/19/17 19:14 Base Excess 2.2 mEq/L (-3.0-3.0) 07/19/17 19:14 O2 Saturation 100.0 % (92.0-100.0) 07/19/17 19:14 Darius Test Positive 07/19/17 19:14 Vent Rate NA 07/18/17 10:48 Inspired O2 40 07/19/17 19:14 Tidal Volume NA 07/18/17 10:48 PEEP NA 07/18/17 10:48 Pressure (ins/psv/peep) NA 07/18/17 10:48 Critical Value SC 07/19/17 19:14 Sodium 139 mEq/L (136-145) 07/26/17 04:20 Potassium 4.7 mEq/L (3.5-5.1) 07/26/17 04:20 Chloride 101 mEq/L (98-107) 07/26/17 04:20 Carbon Dioxide 32.0 mEq/L (21.0-31.0) H 07/26/17 04:20 Anion Gap 10.7 (7.0-16.0) 07/26/17 04:20 BUN 42 mg/dL (7-25) H 07/26/17 04:20 Creatinine 1.1 mg/dL (0.6-1.2) 07/26/17 04:20 Est GFR ( Amer) TNP 07/26/17 04:20 Est GFR (Non-Af Amer) TNP 07/26/17 04:20 BUN/Creatinine Ratio 38.2 07/26/17 04:20 Glucose 148 mg/dL (70-105) H 07/26/17 04:20 POC Glucose 177 MG/DL (70 - 105) H 07/14/17 11:26 Hemoglobin A1c % 5.2 % (4.0-6.0) 07/17/17 04:33 Whole Bld Lactic Acid 3.99 mmol/L (0.60-1.99) H* 07/05/17 13:00 Calcium 8.8 mg/dL (8.6-10.3) 07/26/17 04:20 Phosphorus 1.5 mg/dL (2.5-5.0) L 07/02/17 05:20 Magnesium 1.7 mg/dL (1.9-2.7) L 07/02/17 05:20 Iron 21 07/03/17 05:48 TIBC 131 07/03/17 05:48 Iron Saturation 16 07/03/17 05:48 Unsaturated IBC 110 07/03/17 05:48 Ferritin 334 ng/mL (15-150) H 07/03/17 05:48 Total Bilirubin 0.5 mg/dL (0.3-1.0) 07/05/17 06:05 AST 16 U/L (13-39) 07/05/17 06:05 ALT 8 U/L (7-52) 07/05/17 06:05 Alkaline Phosphatase 66 U/L (34-104) 07/05/17 06:05 Troponin I 0.09 ng/mL (0.01-0.05) H* D 07/04/17 05:50 B-Natriuretic Peptide 215.0 pg/mL (5.0-100.0) H 07/01/17 14:10 Total Protein 5.6 gm/dL (6.0-8.3) L 07/05/17 06:05 Albumin 2.6 gm/dL (3.7-5.3) L 07/05/17 06:05 Globulin 3.0 gm/dL 07/05/17 06:05 Albumin/Globulin Ratio 0.9 (1.0-1.8) L 07/05/17 06:05 Triglycerides 107 mg/dL (<150) 07/04/17 05:50 Cholesterol 114 mg/dL (<200) 07/04/17 05:50 LDL Cholesterol Direct 59 mg/dL (75-193) L 07/04/17 05:50 HDL Cholesterol 31 mg/dL (23-92) 07/04/17 05:50 TSH 1.46 uIU/ml (0.34-5.60) 07/04/17 05:50 Urine Source CATH 07/05/17 18:30 Urine Color YELLOW 07/05/17 18:30 Urine Clarity CLOUDY (CLEAR) H 07/05/17 18:30 Urine pH 5.5 (4.6 - 8.0) 07/05/17 18:30 Ur Specific [place] 1.025 (1.005-1.030) 07/05/17 18:30 Urine Protein 30 mg/dL (NEGATIVE) H 07/05/17 18:30 Urine Glucose (UA) NEGATIVE mg/dL (NEGATIVE) 07/05/17 18:30 Urine Ketones TRACE mg/dL (NEGATIVE) 07/05/17 18:30 Urine Blood SMALL (NEGATIVE) H 07/05/17 18:30 Urine Nitrate NEGATIVE (NEGATIVE) 07/05/17 18:30 Urine Bilirubin NEGATIVE (NEGATIVE) 07/05/17 18:30 Urine Urobilinogen 0.2 E.U./dL (0.2 - 1.0) 07/05/17 18:30 Ur Leukocyte Esterase LARGE (NEGATIVE) H 07/05/17 18:30 Urine RBC 2-5 /hpf (0-5) 07/05/17 18:30 Urine WBC >100 /hpf (0-5) H 07/05/17 18:30 Ur Epithelial Cells FEW /lpf (FEW) 07/05/17 18:30 Urine Bacteria FEW /hpf (NONE SEEN) 07/05/17 18:30 Urine Yeast FEW /hpf (NONE SEEN) H 07/05/17 18:30 Stool Occult Blood POSITIVE (NEGATIVE) H 07/13/17 19:00 Vancomycin Trough 23.1 ug/mL (5-10) H 07/22/17 08:00 Random Vancomycin 23.8 ug/mL (5.0-40.0) 07/24/17 04:00 - Physical Exam Vitals and I&O: Vital Signs Temp 98.8 F 07/26/17 04:00 Pulse 84 07/26/17 13:27 Resp 18 07/26/17 13:27 BP 148/77 07/26/17 09:20 Pulse Ox 98 07/26/17 13:27 Intake & Output 07/25/17 07/26/17 07/26/17 18:59 06:59 18:59 Intake Total 600 700 316 Output Total 2200 1000 Balance -1600 -300 316 Weight (lbs) 74.389 kg 69.037 kg Intake: Intake, IV Amount 316 D5-0.45NS 1,000 ml @ 20 316 mls/hr IV .Q24H [facility] Rx#: [id number] Oral 0 Tube Feeding 600 600 Other 100 Output: Urine 2200 1000 Other: # Bowel Movements 1 Stool Characteristics Soft Weight Source Bedscale Bedscale Active Medications: Current Medications Acetaminophen (Tylenol) 650 mg PO Q4H PRN PRN Reason: Fever > 101 Stop: 08/30/17 22:06 Last Admin: 07/23/17 10:17 Dose: 650 mg Albuterol/Ipratropium (Duoneb Neb) 3 ml HHN Q4HRT PRN PRN Reason: Wheezing Stop: 08/30/17 22:13 Last Admin: 07/22/17 18:56 Dose: 3 ml Albuterol/Ipratropium (Duoneb Neb) 3 ml HHN Q6HRT [facility] Stop: 08/31/17 00:59 Last Admin: 07/26/17 13:27 Dose: 3 ml Ascorbic Acid (Vitamin C) 500 mg PO DAILY [facility] Stop: 08/31/17 08:59 Last Admin: 07/26/17 09:17 Dose: 500 mg Baclofen (Lioresal) 5 mg PO TID [facility] Stop: 09/06/17 08:59 Last Admin: 07/26/17 14:21 Dose: 5 mg Bisacodyl (Dulcolax 10 Mg Supp) 10 mg RC DAILY PRN PRN Reason: BOWEL CARE MANAGEMENT Stop: 09/20/17 09:14 Budesonide (Pulmicort) 0.5 mg HHN BIDRT [facility] Stop: 08/31/17 18:59 Last Admin: 07/26/17 07:29 Dose: 0.5 mg Cyproheptadine HCl (Periactin) 4 mg PO BID [facility] Stop: 08/31/17 08:59 Last Admin: 07/26/17 09:22 Dose: 4 mg Docusate Sodium (Colace) 100 mg PO BID [facility] Stop: 08/31/17 08:59 Last Admin: 07/26/17 09:18 Dose: 100 mg Ferrous Sulfate (Iron) 325 mg PO BID [facility] Stop: 08/31/17 08:59 Last Admin: 07/26/17 09:17 Dose: 325 mg Folic Acid (Folate) 1 mg PO DAILY [facility] Stop: 08/31/17 08:59 Last Admin: 07/26/17 09:18 Dose: 1 mg Furosemide (Lasix) 20 mg IVP DAILY [facility] Stop: 09/16/17 11:59 Last Admin: 07/26/17 09:20 Dose: 20 mg Norepinephrine Bitartrate 4 mg (/ Sodium Chloride) 254 mls @ 0 mls/hr IV TITR [facility]; Titrate PRN Reason: Protocol Stop: 09/03/17 16:29 Dextrose/Sodium Chloride (D5-0.45ns) 1,000 mls @ 20 mls/hr IV .Q24H [facility] Stop: 09/22/17 09:16 Last Admin: 07/26/17 09:19 Dose: 20 mls/hr Lactobacillus Rhamnosus (Culturelle 15b) 1 each PO DAILY [facility] Stop: 09/01/17 08:59 Last Admin: 07/26/17 09:18 Dose: 1 each Lactulose (Cephulac) 20 gm PO QID PRN PRN Reason: Constipation Stop: 08/30/17 22:18 Last Admin: 07/17/17 17:50 Dose: 20 gm Lorazepam (Ativan) 1 mg IVP Q4HR PRN; Protocol PRN Reason: Anxiety Stop: 09/04/17 08:31 Last Admin: 07/18/17 21:49 Dose: 1 mg Losartan Potassium (Cozaar) 50 mg PO DAILY [facility] Stop: 09/23/17 08:59 Last Admin: 07/26/17 09:17 Dose: 50 mg Methylprednisolone Sodium Succinate (Solu-Medrol) 40 mg IVP Q8HR [facility] Stop: 09/09/17 20:59 Last Admin: 07/26/17 14:20 Dose: 40 mg Miscellaneous (Probiotic Screen) 1 ea MC PRN PRN PRN Reason: PROTOCOL Stop: 09/01/17 08:44 Multivitamins/Vitamin C (Theragran) 1 tab PO DAILY [facility] Stop: 08/31/17 08:59 Last Admin: 07/26/17 09:18 Dose: 1 tab Nicotine (Nicotine Transdermal System) 14 mg TD DAILY [facility] Stop: 09/04/17 08:59 Last Admin: 07/26/17 09:18 Dose: 14 mg Pantoprazole Sodium (Protonix) 40 mg IVP BID [facility] Stop: 09/13/17 08:59 Last Admin: 07/26/17 09:18 Dose: 40 mg General: Mild distress, Other (NGT FEEDING) HEENT: Atraumatic, Other Neck: Supple, no JVD, no Thyromegaly Cardiovascular: Regular rate, Normal S1, Normal S2, Other (in A fib) Lungs: Other Abdomen: Bowel sounds, Soft, no Tender, no Hepatomegaly Extremities: no Clubbing Neurological: Other (Pt unable to participate in test) Skin: no Rash Psych/Mental Status: Other (no psychosis) - Procedures Procedures: Procedures Procedure Code Date INSERT EMERGENCY AIRWAY 08665 07/01/17 INSERTION OF ENDOTRACHEAL AIRWAY INTO [place]ACHEA, VIA OPENING [id number] 07/01/17 RESPIRATORY VENTILATION, GREATER THAN 96 CONSECUTIVE HOURS [id number] 07/01/17 VENT MGMT INPAT INIT DAY 70429 07/01/17 Assessment/Plan - Problem List Patient Problems: All Active Problems WEAKESS AND POOR ORAL INTAKE (Acute) - Assessment Assessment: * Advanced metastatic cancer * poor functional status * Anemia likely of chronic disease * Respiratory failure s/p intubation 07/05 off cpap, 07/19 back on vent. 07/20 extubated iron studies cw anemia of chronic disease. hgb better today without transfusion, monitor hgb and transfuse for < 7.5 swallow evaluation very Poor prognosis follow cbc Nutritional Asmnt/Malnutr-PDOC - Dietary Evaluation Malnutrition Findings (Please click <Entered> for more info): Nutritional Asmnt/Malnutrition Start: 07/03/17 13: 22 Text: Status: Complete Freq: Document 07/03/17 13:22 MMKENY (Rec: 07/03/17 13:35 MMKENY ELLER- [email or web address]) Nutritional Asmnt/Malnutrition Patient General Information Nutritional Screening Consult Diagnosis UTI, Failure to thrive, hypokalemia Pertinent Medical Hx/Surgical Hx CAD, HTN, COPD, Stage 4 lung cancer, peripheral neuropathy, constipation, GERD, anxiety, low back pain Subjective Information Consult received for Failure to Thrive. Current Diet Order/ Nutrition Support Regular diet, pureed with mechaical soft Patient / S.O Not Indicated Pertinent Medications Vitamin C, dulcolax, D5-0.45 NS @ 75 ml/hr, colace, iron, folate, lactulose, theragran Pertinent Labs (07/02) P 1.5, Mg 1.7, albumin 2.9 Nutritional Hx/Data Height 1.6 m Height (Calculated Centimeters) 160.0 Current Weight (lbs) 54.885 kg Weight (Calculated Kilograms) 54.9 Weight (Calculated Grams) 06390.7 [place] Body Weight 115 % [place] Body Weight 105 Body Mass Index (BMI) 21.4 Recent Weight Change No Weight Status Approriate GI Symptoms GI Symptoms None Last BM Prior to admission Difficult in: None Food Allergies No Cultural/Ethnic/Yazdanism Belief None indicated Skin Integrity/Comment: Pradeep Cook Current %PO Poor (25-49%) Estimated Nutritional Goals BEE in Kcals: Using Current wt Calories/Kcals/Kg 55kg CBW (25-30kcal/kg) Kcals Calculated 4989-5768 kcal/day Protein: Using Current wt Protein g/k-1.2 gm/kg Protein Calculated 55-65 gm/day Fluid: ml 6187-0915 ml/day (1 ml/kcal) Nutritional Problem 2. Problem Problem Inadequate oral intake related to Etiology poor appetite aeb Signs/Symptoms: meeting <75% of estimated nutrient needs 1. Problem Problem Altered nutrition related lab values related to Etiology electrolyte imbalance aeb Signs/Symptoms: P 1.5, Mg 1.7 Intervention/Recommendation Comments 1. Continue pureed diet as tolerated by patient. 2. RN To assist with feedings and encourage oral intake. 3. Consider adding Boost plus between meals to optimize calorie and protein intake. Expected Outcomes/Goals Expected Outcomes/Goals Oral intake to meet >75% of needs, weight stable, nutrition labs WNL F/U MR 07/06-
[2017-07-27] MEDS: Albuterol/Ipratropium Neb 3 ML AERS HHN SCH ×4 (01:01→18:42)
[2017-07-27] MEDS: methylPREDNISolone SS 40 mg Vial IVP SCH ×3 (04:23→21:39)
[2017-07-27 06:35] LABS: ANION GAP 10.6 (7.0-16.0); BUN - UREA NITROGEN 44 mg/dL (7-25); CALCIUM SERUM 8.2 mg/dL (8.6-10.3); CHLORIDE 102 mEq/L (98-107); GLUCOSE 169 mg/dL (70-105); POTASSIUM SERUM 4.6 mEq/L (3.5-5.1); SODIUM SERUM 136 mEq/L (136-145)
[2017-07-27 06:38] LABS: BASOPHILE ABSOLUTE 0.1 Th/cumm (0-0.2); RED CELL DISTRIBUTION WIDTH 16.7 % (11.5-20.0)
[2017-07-27 06:56] LABS: HEMATOCRIT 20.8 % (41.0-60); HEMOGLOBIN 7.2 gm/dL (12-16); MEAN CELL VOLUME 89.7 fl (81-100); MEAN CORPUSCULAR HEMOGLOBIN 30.9 pg (27.0-31.0); MEAN CORPUSCULAR HGB CONC 34.5 pg (28.0-36.0); RED BLOOD COUNT 2.31 Mil/cmm (3.80-5.20); WHITE BLOOD COUNT 18.9 Th/cmm (4.8-10.8)
[2017-07-27 06:57] LABS: % BASOPHILS 0.4 % (0.0-2.0); % EOSINOPHILS 0.2 % (0.0-5.0); % LYMPHOCYTES 3.2 % (20.0-50.0); % MONOCYTES 2.4 % (2.0-10.0); % NEUTROPHILS 93.8 % (40.0-80.0); LYMPHOCYTE ABSOLUTE 0.6 Th/cmm (1.5-3.0); MEAN PLATELET VOLUME 7.3 fl; MONOCYTE ABSOLUTE 0.5 Th/cmm (0.3-1.0); NEUTROPHILE ABSOLUTE 17.7 Th/cmm (1.8-8.0); PLATELET COUNT 253 Th/cmm (150-400)
--- NOTE | 2017-07-27 07:25 | GI Progress Note ---
Subjective - Review of Systems Subjective: NO ACTIVE BLEEDING HAS NGT PER NURSE ERAN SOME PO Objective - Results Result Diagrams: 07/27/17 06:00 07/27/17 06:00 Recent Labs: Laboratory Last Values WBC 18.9 Th/cmm (4.8-10.8) H 07/27/17 06:00 RBC 2.31 Mil/cmm (3.80-5.20) L 07/27/17 06:00 Hgb 7.2 gm/dL (12-16) L* 07/27/17 06:00 Hct 20.8 % (41.0-60) L* 07/27/17 06:00 MCV 89.7 fl (81-100) 07/27/17 06:00 MCH 30.9 pg (27.0-31.0) 07/27/17 06:00 MCHC Differential 34.5 pg (28.0-36.0) 07/27/17 06:00 RDW 16.7 % (11.5-20.0) 07/27/17 06:00 Plt Count 253 Th/cmm (150-400) 07/27/17 06:00 MPV 7.3 fl 07/27/17 06:00 Neutrophils % 93.8 % (40.0-80.0) H 07/27/17 06:00 Band Neutrophils % 5 % (0-10) 07/26/17 04:20 Lymphocytes % 3.2 % (20.0-50.0) L 07/27/17 06:00 Monocytes % 2.4 % (2.0-10.0) 07/27/17 06:00 Eosinophils % 0.2 % (0.0-5.0) 07/27/17 06:00 Basophils % 0.4 % (0.0-2.0) 07/27/17 06:00 Neutrophils (Manual) 89 % (40-80) H 07/26/17 04:20 Lymphocytes 4 % (20-50) L 07/26/17 04:20 Monocytes 2 % (2-10) 07/26/17 04:20 Eosinophils 0 % (0-5) 07/24/17 04:00 Basophils 0 % (0-3) 07/24/17 04:00 Hypochromia 1+ 07/21/17 04:30 Platelet Estimate ADEQUATE (NORMAL) 07/22/17 04:05 Platelet Morphology NORMAL (NORMAL) 07/16/17 04:35 Polychromasia 1+ 07/14/17 05:00 Ovalocytes 1+ 07/21/17 04:30 RBC Morph Micro Appear NORMAL (NORMAL) 07/16/17 04:35 Specimen Source Arterial 07/19/17 19:14 Sample Site RIGHT BRACHIAL 07/19/17 19:14 pH 7.44 (7.35-7.45) 07/19/17 19:14 pCO2 39.0 mmHg (35.0-45.0) 07/19/17 19:14 pO2 179.0 mmHg (80.0-100.0) H 07/19/17 19:14 HCO3 26.7 mEq/L (20.0-26.0) H 07/19/17 19:14 Base Excess 2.2 mEq/L (-3.0-3.0) 07/19/17 19:14 O2 Saturation 100.0 % (92.0-100.0) 07/19/17 19:14 Darius Test Positive 07/19/17 19:14 Vent Rate NA 07/18/17 10:48 Inspired O2 40 07/19/17 19:14 Tidal Volume NA 07/18/17 10:48 PEEP NA 07/18/17 10:48 Pressure (ins/psv/peep) NA 07/18/17 10:48 Critical Value SC 07/19/17 19:14 Sodium 136 mEq/L (136-145) 07/27/17 06:00 Potassium 4.6 mEq/L (3.5-5.1) 07/27/17 06:00 Chloride 102 mEq/L (98-107) 07/27/17 06:00 Carbon Dioxide 28.0 mEq/L (21.0-31.0) 07/27/17 06:00 Anion Gap 10.6 (7.0-16.0) 07/27/17 06:00 BUN 44 mg/dL (7-25) H 07/27/17 06:00 Creatinine 1.0 mg/dL (0.6-1.2) 07/27/17 06:00 Est GFR ( Amer) TNP 07/27/17 06:00 Est GFR (Non-Af Amer) TNP 07/27/17 06:00 BUN/Creatinine Ratio 44.0 07/27/17 06:00 Glucose 169 mg/dL (70-105) H 07/27/17 06:00 POC Glucose 177 MG/DL (70 - 105) H 07/14/17 11:26 Hemoglobin A1c % 5.2 % (4.0-6.0) 07/17/17 04:33 Whole Bld Lactic Acid 3.99 mmol/L (0.60-1.99) H* 07/05/17 13:00 Calcium 8.2 mg/dL (8.6-10.3) L 07/27/17 06:00 Phosphorus 1.5 mg/dL (2.5-5.0) L 07/02/17 05:20 Magnesium 1.7 mg/dL (1.9-2.7) L 07/02/17 05:20 Iron 21 07/03/17 05:48 TIBC 131 07/03/17 05:48 Iron Saturation 16 07/03/17 05:48 Unsaturated IBC 110 07/03/17 05:48 Ferritin 334 ng/mL (15-150) H 07/03/17 05:48 Total Bilirubin 0.5 mg/dL (0.3-1.0) 07/05/17 06:05 AST 16 U/L (13-39) 07/05/17 06:05 ALT 8 U/L (7-52) 07/05/17 06:05 Alkaline Phosphatase 66 U/L (34-104) 07/05/17 06:05 Troponin I 0.09 ng/mL (0.01-0.05) H* D 07/04/17 05:50 B-Natriuretic Peptide 215.0 pg/mL (5.0-100.0) H 07/01/17 14:10 Total Protein 5.6 gm/dL (6.0-8.3) L 07/05/17 06:05 Albumin 2.6 gm/dL (3.7-5.3) L 07/05/17 06:05 Globulin 3.0 gm/dL 07/05/17 06:05 Albumin/Globulin Ratio 0.9 (1.0-1.8) L 07/05/17 06:05 Triglycerides 107 mg/dL (<150) 07/04/17 05:50 Cholesterol 114 mg/dL (<200) 07/04/17 05:50 LDL Cholesterol Direct 59 mg/dL (75-193) L 07/04/17 05:50 HDL Cholesterol 31 mg/dL (23-92) 07/04/17 05:50 TSH 1.46 uIU/ml (0.34-5.60) 07/04/17 05:50 Urine Source CATH 07/05/17 18:30 Urine Color YELLOW 07/05/17 18:30 Urine Clarity CLOUDY (CLEAR) H 07/05/17 18:30 Urine pH 5.5 (4.6 - 8.0) 07/05/17 18:30 Ur Specific [place] 1.025 (1.005-1.030) 07/05/17 18:30 Urine Protein 30 mg/dL (NEGATIVE) H 07/05/17 18:30 Urine Glucose (UA) NEGATIVE mg/dL (NEGATIVE) 07/05/17 18:30 Urine Ketones TRACE mg/dL (NEGATIVE) 07/05/17 18:30 Urine Blood SMALL (NEGATIVE) H 07/05/17 18:30 Urine Nitrate NEGATIVE (NEGATIVE) 07/05/17 18:30 Urine Bilirubin NEGATIVE (NEGATIVE) 07/05/17 18:30 Urine Urobilinogen 0.2 E.U./dL (0.2 - 1.0) 07/05/17 18:30 Ur Leukocyte Esterase LARGE (NEGATIVE) H 07/05/17 18:30 Urine RBC 2-5 /hpf (0-5) 07/05/17 18:30 Urine WBC >100 /hpf (0-5) H 07/05/17 18:30 Ur Epithelial Cells FEW /lpf (FEW) 07/05/17 18:30 Urine Bacteria FEW /hpf (NONE SEEN) 07/05/17 18:30 Urine Yeast FEW /hpf (NONE SEEN) H 07/05/17 18:30 Stool Occult Blood POSITIVE (NEGATIVE) H 07/13/17 19:00 Vancomycin Trough 23.1 ug/mL (5-10) H 07/22/17 08:00 Random Vancomycin 23.8 ug/mL (5.0-40.0) 07/24/17 04:00 - Physical Exam Vitals and I&O: Vital Signs Temp 98.4 F 07/27/17 04:50 Pulse 94 07/27/17 04:50 Resp 18 07/27/17 04:50 BP 122/58 07/27/17 04:50 Pulse Ox 99 07/27/17 04:50 Intake & Output 07/26/17 07/27/17 07/27/17 18:59 06:59 18:59 Intake Total 316 Balance 316 Weight (lbs) 68.946 kg Intake: Intake, IV Amount 316 D5-0.45NS 1,000 ml @ 20 316 mls/hr IV .Q24H [facility] Rx#: [id number] Other: Stool Characteristics Soft Weight Source Bedscale Active Medications: Current Medications Acetaminophen (Tylenol) 650 mg PO Q4H PRN PRN Reason: Fever > 101 Stop: 08/30/17 22:06 Last Admin: 07/23/17 10:17 Dose: 650 mg Albuterol/Ipratropium (Duoneb Neb) 3 ml HHN Q4HRT PRN PRN Reason: Wheezing Stop: 08/30/17 22:13 Last Admin: 07/22/17 18:56 Dose: 3 ml Albuterol/Ipratropium (Duoneb Neb) 3 ml HHN Q6HRT [facility] Stop: 08/31/17 00:59 Last Admin: 07/27/17 01:01 Dose: 3 ml Ascorbic Acid (Vitamin C) 500 mg PO DAILY [facility] Stop: 08/31/17 08:59 Last Admin: 07/26/17 09:17 Dose: 500 mg Baclofen (Lioresal) 5 mg PO TID [facility] Stop: 09/06/17 08:59 Last Admin: 07/26/17 20:51 Dose: 5 mg Bisacodyl (Dulcolax 10 Mg Supp) 10 mg RC DAILY PRN PRN Reason: BOWEL CARE MANAGEMENT Stop: 09/20/17 09:14 Budesonide (Pulmicort) 0.5 mg HHN BIDRT [facility] Stop: 08/31/17 18:59 Last Admin: 07/26/17 19:08 Dose: 0.5 mg Cyproheptadine HCl (Periactin) 4 mg PO BID [facility] Stop: 08/31/17 08:59 Last Admin: 07/26/17 17:18 Dose: 4 mg Docusate Sodium (Colace) 100 mg PO BID [facility] Stop: 08/31/17 08:59 Last Admin: 07/26/17 17:18 Dose: 100 mg Ferrous Sulfate (Iron) 325 mg PO BID [facility] Stop: 08/31/17 08:59 Last Admin: 07/26/17 17:18 Dose: 325 mg Folic Acid (Folate) 1 mg PO DAILY [facility] Stop: 08/31/17 08:59 Last Admin: 07/26/17 09:18 Dose: 1 mg Furosemide (Lasix) 20 mg IVP DAILY [facility] Stop: 09/16/17 11:59 Last Admin: 07/26/17 09:20 Dose: 20 mg Norepinephrine Bitartrate 4 mg (/ Sodium Chloride) 254 mls @ 0 mls/hr IV TITR [facility]; Titrate PRN Reason: Protocol Stop: 09/03/17 16:29 Dextrose/Sodium Chloride (D5-0.45ns) 1,000 mls @ 20 mls/hr IV .Q24H [facility] Stop: 09/22/17 09:16 Last Admin: 07/26/17 09:19 Dose: 20 mls/hr Lactobacillus Rhamnosus (Culturelle 15b) 1 each PO DAILY [facility] Stop: 09/01/17 08:59 Last Admin: 07/26/17 09:18 Dose: 1 each Lactulose (Cephulac) 20 gm PO QID PRN PRN Reason: Constipation Stop: 08/30/17 22:18 Last Admin: 07/17/17 17:50 Dose: 20 gm Lorazepam (Ativan) 1 mg IVP Q4HR PRN; Protocol PRN Reason: Anxiety Stop: 09/04/17 08:31 Last Admin: 07/18/17 21:49 Dose: 1 mg Losartan Potassium (Cozaar) 50 mg PO DAILY [facility] Stop: 09/23/17 08:59 Last Admin: 07/26/17 09:17 Dose: 50 mg Methylprednisolone Sodium Succinate (Solu-Medrol) 40 mg IVP Q8HR [facility] Stop: 09/09/17 20:59 Last Admin: 07/27/17 04:23 Dose: 40 mg Miscellaneous (Probiotic Screen) 1 ea MC PRN PRN PRN Reason: PROTOCOL Stop: 09/01/17 08:44 Multivitamins/Vitamin C (Theragran) 1 tab PO DAILY [facility] Stop: 08/31/17 08:59 Last Admin: 07/26/17 09:18 Dose: 1 tab Nicotine (Nicotine Transdermal System) 14 mg TD DAILY [facility] Stop: 06/17/18 08:59 Last Admin: 07/26/17 09:18 Dose: 14 mg Pantoprazole Sodium (Protonix) 40 mg IVP BID SHADI Stop: 09/13/17 08:59 Last Admin: 07/26/17 17:18 Dose: 40 mg General: Mild distress, Other (NGT FEEDING) HEENT: Atraumatic, Other Neck: Supple, no JVD, no Thyromegaly Cardiovascular: Regular rate, Normal S1, Normal S2, Other (in A fib) Lungs: Other Abdomen: Bowel sounds, Soft, no Tender, no Hepatomegaly Extremities: no Clubbing Neurological: Other (Pt unable to participate in test) Skin: no Rash Psych/Mental Status: Other (no psychosis) - Procedures Procedures: Procedures Procedure Code Date INSERT EMERGENCY AIRWAY 40441 07/01/17 INSERTION OF ENDOTRACHEAL AIRWAY INTO TRACHEA, VIA OPENING [id number] 07/01/17 RESPIRATORY VENTILATION, GREATER THAN 96 CONSECUTIVE HOURS [id number] 07/01/17 VENT MGMT INPAT INIT DAY 50894 07/01/17 Assessment/Plan - Problem List Patient Problems: All Active Problems WEAKESS AND POOR ORAL INTAKE (Acute) - Assessment Assessment: 87 YO FEMALE WITH LUNG CA ANEMIA WITH OB + STOOL NO ACTIVE BLEEDING PER STAFF FAMILY DOES NOT WANT PEG 1.FOLLOW H/H; TRANSFUSE PRN 2.CONT PROTONIX 3.CONSIDER ENDOSCOPIC WORK UP IF ACTIVE BLEED OR SIG DROP IN HGB; OTHERWISE CONSERVATIVE MANAGEMENT
[2017-07-27] MEDS: Budesonide 0.5 Mg/2 mL Ud HHN SCH ×2 (07:39→18:42)
[2017-07-27] MEDS: Nicotine 14 mg/24 hr Tdm TD SCH (09:24)
[2017-07-27] MEDS: Ferrous Sulfate 325 MG TAB PO SCH ×2 (09:28→18:31)
[2017-07-27] MEDS: Lactobacillus Rhamnosus GG 15 Billion CFU CAP.SPRINK PO SCH (09:28)
[2017-07-27] MEDS: Multivitamin Tab PO SCH (09:29)
[2017-07-27] MEDS: Cyproheptadine 4 mg Tab PO SCH ×2 (09:29→18:31)
--- NOTE | 2017-07-27 09:33 | General Progress Note ---
Subjective - Review of Systems Service Date: 07/27/17 Subjective: Pt seen and eval. In bed. Seen by jayson, bren, and heme onc, all of whom agree with hospice care. Dr. Montanez also discussed poor prog with son. No fevers or chills. WBC elevated, but improving. No falls. Pt went into A fib pm 07/04/16, and was transferred to ICU on digoxin. Intubated on 07/05/17. Was on Amiodarone and Levophed drip, both of which are off as of 07/06/17. She had large bm night of 07/10/17. Pt was extubated night of 07/19/17. On nasal cannula O2 at 2 L now. Awake, but very weak. Son does not want GT. However, she failed swallow eval on 07/22/17. Will repeat swallow eval today. Will talk to son again re GT. Son is still refusing to decide between GT and hospice. She's tele status now. More awake today. Pt likely to be transferred to LTAC today. 1 unit PRBC has been ordered by GI for today. Objective - Results Result Diagrams: 07/27/17 06:00 07/27/17 06:00 Recent Labs: Laboratory Last Values WBC 18.9 Th/cmm (4.8-10.8) H 07/27/17 06:00 RBC 2.31 Mil/cmm (3.80-5.20) L 07/27/17 06:00 Hgb 7.2 gm/dL (12-16) L* 07/27/17 06:00 Hct 20.8 % (41.0-60) L* 07/27/17 06:00 MCV 89.7 fl (81-100) 07/27/17 06:00 MCH 30.9 pg (27.0-31.0) 07/27/17 06:00 MCHC Differential 34.5 pg (28.0-36.0) 07/27/17 06:00 RDW 16.7 % (11.5-20.0) 07/27/17 06:00 Plt Count 253 Th/cmm (150-400) 07/27/17 06:00 MPV 7.3 fl 07/27/17 06:00 Neutrophils % 93.8 % (40.0-80.0) H 07/27/17 06:00 Band Neutrophils % 5 % (0-10) 07/26/17 04:20 Lymphocytes % 3.2 % (20.0-50.0) L 07/27/17 06:00 Monocytes % 2.4 % (2.0-10.0) 07/27/17 06:00 Eosinophils % 0.2 % (0.0-5.0) 07/27/17 06:00 Basophils % 0.4 % (0.0-2.0) 07/27/17 06:00 Neutrophils (Manual) 89 % (40-80) H 07/26/17 04:20 Lymphocytes 4 % (20-50) L 07/26/17 04:20 Monocytes 2 % (2-10) 07/26/17 04:20 Eosinophils 0 % (0-5) 07/24/17 04:00 Basophils 0 % (0-3) 07/24/17 04:00 Hypochromia 1+ 07/21/17 04:30 Platelet Estimate ADEQUATE (NORMAL) 07/22/17 04:05 Platelet Morphology NORMAL (NORMAL) 07/16/17 04:35 Polychromasia 1+ 07/14/17 05:00 Ovalocytes 1+ 07/21/17 04:30 RBC Morph Micro Appear NORMAL (NORMAL) 07/16/17 04:35 Specimen Source Arterial 07/19/17 19:14 Sample Site RIGHT BRACHIAL 07/19/17 19:14 pH 7.44 (7.35-7.45) 07/19/17 19:14 pCO2 39.0 mmHg (35.0-45.0) 07/19/17 19:14 pO2 179.0 mmHg (80.0-100.0) H 07/19/17 19:14 HCO3 26.7 mEq/L (20.0-26.0) H 07/19/17 19:14 Base Excess 2.2 mEq/L (-3.0-3.0) 07/19/17 19:14 O2 Saturation 100.0 % (92.0-100.0) 07/19/17 19:14 Darius Test Positive 07/19/17 19:14 Vent Rate NA 07/18/17 10:48 Inspired O2 40 07/19/17 19:14 Tidal Volume NA 07/18/17 10:48 PEEP NA 07/18/17 10:48 Pressure (ins/psv/peep) NA 07/18/17 10:48 Critical Value SC 07/19/17 19:14 Sodium 136 mEq/L (136-145) 07/27/17 06:00 Potassium 4.6 mEq/L (3.5-5.1) 07/27/17 06:00 Chloride 102 mEq/L (98-107) 07/27/17 06:00 Carbon Dioxide 28.0 mEq/L (21.0-31.0) 07/27/17 06:00 Anion Gap 10.6 (7.0-16.0) 07/27/17 06:00 BUN 44 mg/dL (7-25) H 07/27/17 06:00 Creatinine 1.0 mg/dL (0.6-1.2) 07/27/17 06:00 Est GFR ( Amer) TNP 07/27/17 06:00 Est GFR (Non-Af Amer) TNP 07/27/17 06:00 BUN/Creatinine Ratio 44.0 07/27/17 06:00 Glucose 169 mg/dL (70-105) H 07/27/17 06:00 POC Glucose 177 MG/DL (70 - 105) H 07/14/17 11:26 Hemoglobin A1c % 5.2 % (4.0-6.0) 07/17/17 04:33 Whole Bld Lactic Acid 3.99 mmol/L (0.60-1.99) H* 07/05/17 13:00 Calcium 8.2 mg/dL (8.6-10.3) L 07/27/17 06:00 Phosphorus 1.5 mg/dL (2.5-5.0) L 07/02/17 05:20 Magnesium 1.7 mg/dL (1.9-2.7) L 07/02/17 05:20 Iron 21 07/03/17 05:48 TIBC 131 07/03/17 05:48 Iron Saturation 16 07/03/17 05:48 Unsaturated IBC 110 07/03/17 05:48 Ferritin 334 ng/mL (15-150) H 07/03/17 05:48 Total Bilirubin 0.5 mg/dL (0.3-1.0) 07/05/17 06:05 AST 16 U/L (13-39) 07/05/17 06:05 ALT 8 U/L (7-52) 07/05/17 06:05 Alkaline Phosphatase 66 U/L (34-104) 07/05/17 06:05 Troponin I 0.09 ng/mL (0.01-0.05) H* D 07/04/17 05:50 B-Natriuretic Peptide 215.0 pg/mL (5.0-100.0) H 07/01/17 14:10 Total Protein 5.6 gm/dL (6.0-8.3) L 07/05/17 06:05 Albumin 2.6 gm/dL (3.7-5.3) L 07/05/17 06:05 Globulin 3.0 gm/dL 07/05/17 06:05 Albumin/Globulin Ratio 0.9 (1.0-1.8) L 07/05/17 06:05 Triglycerides 107 mg/dL (<150) 07/04/17 05:50 Cholesterol 114 mg/dL (<200) 07/04/17 05:50 LDL Cholesterol Direct 59 mg/dL (75-193) L 07/04/17 05:50 HDL Cholesterol 31 mg/dL (23-92) 07/04/17 05:50 TSH 1.46 uIU/ml (0.34-5.60) 07/04/17 05:50 Urine Source CATH 07/05/17 18:30 Urine Color YELLOW 07/05/17 18:30 Urine Clarity CLOUDY (CLEAR) H 07/05/17 18:30 Urine pH 5.5 (4.6 - 8.0) 07/05/17 18:30 Ur Specific [place] 1.025 (1.005-1.030) 07/05/17 18:30 Urine Protein 30 mg/dL (NEGATIVE) H 07/05/17 18:30 Urine Glucose (UA) NEGATIVE mg/dL (NEGATIVE) 07/05/17 18:30 Urine Ketones TRACE mg/dL (NEGATIVE) 07/05/17 18:30 Urine Blood SMALL (NEGATIVE) H 07/05/17 18:30 Urine Nitrate NEGATIVE (NEGATIVE) 07/05/17 18:30 Urine Bilirubin NEGATIVE (NEGATIVE) 07/05/17 18:30 Urine Urobilinogen 0.2 E.U./dL (0.2 - 1.0) 07/05/17 18:30 Ur Leukocyte Esterase LARGE (NEGATIVE) H 07/05/17 18:30 Urine RBC 2-5 /hpf (0-5) 07/05/17 18:30 Urine WBC >100 /hpf (0-5) H 07/05/17 18:30 Ur Epithelial Cells FEW /lpf (FEW) 07/05/17 18:30 Urine Bacteria FEW /hpf (NONE SEEN) 07/05/17 18:30 Urine Yeast FEW /hpf (NONE SEEN) H 07/05/17 18:30 Stool Occult Blood POSITIVE (NEGATIVE) H 07/13/17 19:00 Vancomycin Trough 23.1 ug/mL (5-10) H 07/22/17 08:00 Random Vancomycin 23.8 ug/mL (5.0-40.0) 07/24/17 04:00 - Physical Exam Vitals and I&O: Vital Signs Temp 98.4 F 07/27/17 04:50 Pulse 84 07/27/17 09:29 Resp 18 07/27/17 07:42 BP 125/64 07/27/17 09:29 Pulse Ox 100 07/27/17 07:42 Intake & Output 07/26/17 07/27/17 07/27/17 18:59 06:59 18:59 Intake Total 316 Balance 316 Weight (lbs) 68.946 kg Intake: Intake, IV Amount 316 D5-0.45NS 1,000 ml @ 20 316 mls/hr IV .Q24H FORMERLY [facility], [facility]–1983 Rx#: [id number] Other: Stool Characteristics Soft Weight Source Bedscale Active Medications: Current Medications Acetaminophen (Tylenol) 650 mg PO Q4H PRN PRN Reason: Fever > 101 Stop: 08/30/17 22:06 Last Admin: 07/23/17 10:17 Dose: 650 mg Albuterol/Ipratropium (Duoneb Neb) 3 ml HHN Q4HRT PRN PRN Reason: Wheezing Stop: 08/30/17 22:13 Last Admin: 07/22/17 18:56 Dose: 3 ml Albuterol/Ipratropium (Duoneb Neb) 3 ml HHN Q6HRT [facility], [facility]1983 Stop: 08/31/17 00:59 Last Admin: 07/27/17 07:39 Dose: 3 ml Ascorbic Acid (Vitamin C) 500 mg PO DAILY [facility], [facility]1983 Stop: 08/31/17 08:59 Last Admin: 07/27/17 09:28 Dose: 500 mg Baclofen (Lioresal) 5 mg PO TID SHADI Stop: 09/06/17 08:59 Last Admin: 07/27/17 09:28 Dose: 5 mg Bisacodyl (Dulcolax 10 Mg Supp) 10 mg RC DAILY PRN PRN Reason: BOWEL CARE MANAGEMENT Stop: 09/20/17 09:14 Budesonide (Pulmicort) 0.5 mg HHN BIDRT SHADI Stop: 08/31/17 18:59 Last Admin: 07/27/17 07:39 Dose: 0.5 mg Cyproheptadine HCl (Periactin) 4 mg PO BID SHADI Stop: 08/31/17 08:59 Last Admin: 07/27/17 09:29 Dose: 4 mg Docusate Sodium (Colace) 100 mg PO BID SHADI Stop: 08/31/17 08:59 Last Admin: 07/27/17 09:28 Dose: 100 mg Ferrous Sulfate (Iron) 325 mg PO BID [facility] Stop: 08/31/17 08:59 Last Admin: 07/27/17 09:28 Dose: 325 mg Folic Acid (Folate) 1 mg PO DAILY SHADI Stop: 08/31/17 08:59 Last Admin: 07/27/17 09:28 Dose: 1 mg Furosemide (Lasix) 20 mg IVP DAILY [facility] Stop: 09/16/17 11:59 Last Admin: 07/27/17 09:29 Dose: 20 mg Norepinephrine Bitartrate 4 mg (/ Sodium Chloride) 254 mls @ 0 mls/hr IV TITR SHADI; Titrate PRN Reason: Protocol Stop: 09/03/17 16:29 Dextrose/Sodium Chloride (D5-0.45ns) 1,000 mls @ 20 mls/hr IV .Q24H SHADI Stop: 09/22/17 09:16 Last Admin: 07/26/17 09:19 Dose: 20 mls/hr Lactobacillus Rhamnosus (Culturelle 15b) 1 each PO DAILY [facility] Stop: 09/01/17 08:59 Last Admin: 07/27/17 09:28 Dose: 1 each Lactulose (Cephulac) 20 gm PO QID PRN PRN Reason: Constipation Stop: 08/30/17 22:18 Last Admin: 07/17/17 17:50 Dose: 20 gm Lorazepam (Ativan) 1 mg IVP Q4HR PRN; Protocol PRN Reason: Anxiety Stop: 09/04/17 08:31 Last Admin: 07/18/17 21:49 Dose: 1 mg Losartan Potassium (Cozaar) 50 mg PO DAILY SHADI Stop: 09/23/17 08:59 Last Admin: 07/27/17 09:29 Dose: 50 mg Methylprednisolone Sodium Succinate (Solu-Medrol) 40 mg IVP Q8HR SHADI Stop: 09/09/17 20:59 Last Admin: 07/27/17 04:23 Dose: 40 mg Miscellaneous (Probiotic Screen) 1 ea MC PRN PRN PRN Reason: PROTOCOL Stop: 09/01/17 08:44 Multivitamins/Vitamin C (Theragran) 1 tab PO DAILY SHADI Stop: 08/31/17 08:59 Last Admin: 07/27/17 09:29 Dose: 1 tab Nicotine (Nicotine Transdermal System) 14 mg TD DAILY SHADI Stop: 09/04/17 08:59 Last Admin: 07/27/17 09:24 Dose: 14 mg Pantoprazole Sodium (Protonix) 40 mg IVP BID SHADI Stop: 09/13/17 08:59 Last Admin: 07/27/17 09:29 Dose: 40 mg General: Mild distress, Other (NGT FEEDING) HEENT: Atraumatic, Other Neck: Supple, no JVD, no Thyromegaly Cardiovascular: Regular rate, Normal S1, Normal S2, Other (in A fib) Lungs: Other Abdomen: Bowel sounds, Soft, no Tender, no Hepatomegaly Extremities: no Clubbing Neurological: Other (Pt unable to participate in test) Skin: no Rash Psych/Mental Status: Other (no psychosis) - Procedures Procedures: Procedures Procedure Code Date INSERT EMERGENCY AIRWAY 51086 07/01/17 INSERTION OF ENDOTRACHEAL AIRWAY INTO [place]ACHEA, VIA OPENING [id number] 07/01/17 RESPIRATORY VENTILATION, GREATER THAN 96 CONSECUTIVE HOURS [id number] 07/01/17 VENT MGMT INPAT INIT DAY 38992 07/01/17 Assessment/Plan - Problem List Patient Problems: All Active Problems WEAKESS AND POOR ORAL INTAKE (Acute) - Assessment Assessment: Septic shock A fib with RVR Fail to thrive Stage 4 lung ca Sepsis due to E Coli UTI ME Ch pain syn Anemia of ch ill Hypernatremia Hypokalemia Type 2 MO A fib - Plan Plan: Pt holds a poor progonosis. Been trying to communicate poor prognosis to the son. He wants "everything done. " Cardio, Pulm, and Heme Onc seeing pt, all of whom agree with comfort care/ hospice. On IV Zosyn and Vanco. Has been on Amiodarone and Levphed drip in ICU-now off as off 07/06/17. Intubated on 07/05/17; extubated on night of 07/19/17 Elec corrected. I's and O's reviewed. Pt holds a poor prognosis. Son still wants everything done. No drips. Pt responsive. Weaning tried on 07/10/17, but could not tolerate it. But ultimately extubated on 07/19/17. Hgb dropping. Holding Xarelto as of 07/11/17. Checked stool OB times 2-both postive. GI on the case. FU on CBC and Chem 7. Again, advised son of the grave prognosis and the fact that pt has poor quality of life and it will not improve. He still wants "everything done." As of 07/18/17, she was on CPAP, then extubated night on 07/19/17. Consider swallow eval tomorrow when she's more alert. GI following for stool OB times 2. However, pt too unstable for procedure per GI. SNF eval. Son doesn't want GT. Pt failed swallow eval on 07/22/17. She's now tele status. Pt failed 2nd swallow eval on 07/26/17. Possible LTAC dc today. 1 unit PRBC ordered by GI today. Nutritional Asmnt/Malnutr-PDOC - Dietary Evaluation Malnutrition Findings (Please click <Entered> for more info): Nutritional Asmnt/Malnutrition Start: 07/03/17 13: 22 Text: Status: Complete Freq: Document 07/03/17 13:22 MMULJENN (Rec: 07/03/17 13:35 [email or web address] ELLER- [email or web address]) Nutritional Asmnt/Malnutrition Patient General Information Nutritional Screening Consult Diagnosis UTI, Failure to thrive, hypokalemia Pertinent Medical Hx/Surgical Hx CAD, HTN, COPD, Stage 4 lung cancer, peripheral neuropathy, constipation, GERD, anxiety, low back pain Subjective Information Consult received for Failure to Thrive. Current Diet Order/ Nutrition Support Regular diet, pureed with mechaical soft Patient / S.O Not Indicated Pertinent Medications Vitamin C, dulcolax, D5-0.45 NS @ 75 ml/hr, colace, iron, folate, lactulose, theragran Pertinent Labs (07/02) P 1.5, Mg 1.7, albumin 2.9 Nutritional Hx/Data Height 1.6 m Height (Calculated Centimeters) 160.0 Current Weight (lbs) 54.885 kg Weight (Calculated Kilograms) 54.9 Weight (Calculated Grams) 61397.7 [place] Body Weight 115 % [place] Body Weight 105 Body Mass Index (BMI) 21.4 Recent Weight Change No Weight Status Approriate GI Symptoms GI Symptoms None Last BM Prior to admission Difficult in: None Food Allergies No Cultural/Ethnic/Yazidism Belief None indicated Skin Integrity/Comment: Pradeep 15 Current %PO Poor (25-49%) Estimated Nutritional Goals BEE in Kcals: Using Current wt Calories/Kcals/Kg 55kg CBW (25-30kcal/kg) Kcals Calculated 6317-6524 kcal/day Protein: Using Current wt Protein g/k-1.2 gm/kg Protein Calculated 55-65 gm/day Fluid: ml 0933-3830 ml/day (1 ml/kcal) Nutritional Problem 2. Problem Problem Inadequate oral intake related to Etiology poor appetite aeb Signs/Symptoms: meeting <75% of estimated nutrient needs 1. Problem Problem Altered nutrition related lab values related to Etiology electrolyte imbalance aeb Signs/Symptoms: P 1.5, Mg 1.7 Intervention/Recommendation Comments 1. Continue pureed diet as tolerated by patient. 2. RN To assist with feedings and encourage oral intake. 3. Consider adding Boost plus between meals to optimize calorie and protein intake. Expected Outcomes/Goals Expected Outcomes/Goals Oral intake to meet >75% of needs, weight stable, nutrition labs WNL F/U MR 07/06-
--- NOTE | 2017-07-27 10:17 | General Progress Note ---
Subjective - Review of Systems Service Date: 07/27/17 Subjective: opens eyes, more alert NGT feeding Objective - Results Result Diagrams: 07/27/17 06:00 07/27/17 06:00 Recent Labs: Laboratory Last Values WBC 18.9 Th/cmm (4.8-10.8) H 07/27/17 06:00 RBC 2.31 Mil/cmm (3.80-5.20) L 07/27/17 06:00 Hgb 7.2 gm/dL (12-16) L* 07/27/17 06:00 Hct 20.8 % (41.0-60) L* 07/27/17 06:00 MCV 89.7 fl (81-100) 07/27/17 06:00 MCH 30.9 pg (27.0-31.0) 07/27/17 06:00 MCHC Differential 34.5 pg (28.0-36.0) 07/27/17 06:00 RDW 16.7 % (11.5-20.0) 07/27/17 06:00 Plt Count 253 Th/cmm (150-400) 07/27/17 06:00 MPV 7.3 fl 07/27/17 06:00 Neutrophils % 93.8 % (40.0-80.0) H 07/27/17 06:00 Band Neutrophils % 5 % (0-10) 07/26/17 04:20 Lymphocytes % 3.2 % (20.0-50.0) L 07/27/17 06:00 Monocytes % 2.4 % (2.0-10.0) 07/27/17 06:00 Eosinophils % 0.2 % (0.0-5.0) 07/27/17 06:00 Basophils % 0.4 % (0.0-2.0) 07/27/17 06:00 Neutrophils (Manual) 89 % (40-80) H 07/26/17 04:20 Lymphocytes 4 % (20-50) L 07/26/17 04:20 Monocytes 2 % (2-10) 07/26/17 04:20 Eosinophils 0 % (0-5) 07/24/17 04:00 Basophils 0 % (0-3) 07/24/17 04:00 Hypochromia 1+ 07/21/17 04:30 Platelet Estimate ADEQUATE (NORMAL) 07/22/17 04:05 Platelet Morphology NORMAL (NORMAL) 07/16/17 04:35 Polychromasia 1+ 07/14/17 05:00 Ovalocytes 1+ 07/21/17 04:30 RBC Morph Micro Appear NORMAL (NORMAL) 07/16/17 04:35 Specimen Source Arterial 07/19/17 19:14 Sample Site RIGHT BRACHIAL 07/19/17 19:14 pH 7.44 (7.35-7.45) 07/19/17 19:14 pCO2 39.0 mmHg (35.0-45.0) 07/19/17 19:14 pO2 179.0 mmHg (80.0-100.0) H 07/19/17 19:14 HCO3 26.7 mEq/L (20.0-26.0) H 07/19/17 19:14 Base Excess 2.2 mEq/L (-3.0-3.0) 07/19/17 19:14 O2 Saturation 100.0 % (92.0-100.0) 07/19/17 19:14 Darius Test Positive 07/19/17 19:14 Vent Rate NA 07/18/17 10:48 Inspired O2 40 07/19/17 19:14 Tidal Volume NA 07/18/17 10:48 PEEP NA 07/18/17 10:48 Pressure (ins/psv/peep) NA 07/18/17 10:48 Critical Value SC 07/19/17 19:14 Sodium 136 mEq/L (136-145) 07/27/17 06:00 Potassium 4.6 mEq/L (3.5-5.1) 07/27/17 06:00 Chloride 102 mEq/L (98-107) 07/27/17 06:00 Carbon Dioxide 28.0 mEq/L (21.0-31.0) 07/27/17 06:00 Anion Gap 10.6 (7.0-16.0) 07/27/17 06:00 BUN 44 mg/dL (7-25) H 07/27/17 06:00 Creatinine 1.0 mg/dL (0.6-1.2) 07/27/17 06:00 Est GFR ( Amer) TNP 07/27/17 06:00 Est GFR (Non-Af Amer) TNP 07/27/17 06:00 BUN/Creatinine Ratio 44.0 07/27/17 06:00 Glucose 169 mg/dL (70-105) H 07/27/17 06:00 POC Glucose 177 MG/DL (70 - 105) H 07/14/17 11:26 Hemoglobin A1c % 5.2 % (4.0-6.0) 07/17/17 04:33 Whole Bld Lactic Acid 3.99 mmol/L (0.60-1.99) H* 07/05/17 13:00 Calcium 8.2 mg/dL (8.6-10.3) L 07/27/17 06:00 Phosphorus 1.5 mg/dL (2.5-5.0) L 07/02/17 05:20 Magnesium 1.7 mg/dL (1.9-2.7) L 07/02/17 05:20 Iron 21 07/03/17 05:48 TIBC 131 07/03/17 05:48 Iron Saturation 16 07/03/17 05:48 Unsaturated IBC 110 07/03/17 05:48 Ferritin 334 ng/mL (15-150) H 07/03/17 05:48 Total Bilirubin 0.5 mg/dL (0.3-1.0) 07/05/17 06:05 AST 16 U/L (13-39) 07/05/17 06:05 ALT 8 U/L (7-52) 07/05/17 06:05 Alkaline Phosphatase 66 U/L (34-104) 07/05/17 06:05 Troponin I 0.09 ng/mL (0.01-0.05) H* D 07/04/17 05:50 B-Natriuretic Peptide 215.0 pg/mL (5.0-100.0) H 07/01/17 14:10 Total Protein 5.6 gm/dL (6.0-8.3) L 07/05/17 06:05 Albumin 2.6 gm/dL (3.7-5.3) L 07/05/17 06:05 Globulin 3.0 gm/dL 07/05/17 06:05 Albumin/Globulin Ratio 0.9 (1.0-1.8) L 07/05/17 06:05 Triglycerides 107 mg/dL (<150) 07/04/17 05:50 Cholesterol 114 mg/dL (<200) 07/04/17 05:50 LDL Cholesterol Direct 59 mg/dL (75-193) L 07/04/17 05:50 HDL Cholesterol 31 mg/dL (23-92) 07/04/17 05:50 TSH 1.46 uIU/ml (0.34-5.60) 07/04/17 05:50 Urine Source CATH 07/05/17 18:30 Urine Color YELLOW 07/05/17 18:30 Urine Clarity CLOUDY (CLEAR) H 07/05/17 18:30 Urine pH 5.5 (4.6 - 8.0) 07/05/17 18:30 Ur Specific [place] 1.025 (1.005-1.030) 07/05/17 18:30 Urine Protein 30 mg/dL (NEGATIVE) H 07/05/17 18:30 Urine Glucose (UA) NEGATIVE mg/dL (NEGATIVE) 07/05/17 18:30 Urine Ketones TRACE mg/dL (NEGATIVE) 07/05/17 18:30 Urine Blood SMALL (NEGATIVE) H 07/05/17 18:30 Urine Nitrate NEGATIVE (NEGATIVE) 07/05/17 18:30 Urine Bilirubin NEGATIVE (NEGATIVE) 07/05/17 18:30 Urine Urobilinogen 0.2 E.U./dL (0.2 - 1.0) 07/05/17 18:30 Ur Leukocyte Esterase LARGE (NEGATIVE) H 07/05/17 18:30 Urine RBC 2-5 /hpf (0-5) 07/05/17 18:30 Urine WBC >100 /hpf (0-5) H 07/05/17 18:30 Ur Epithelial Cells FEW /lpf (FEW) 07/05/17 18:30 Urine Bacteria FEW /hpf (NONE SEEN) 07/05/17 18:30 Urine Yeast FEW /hpf (NONE SEEN) H 07/05/17 18:30 Stool Occult Blood POSITIVE (NEGATIVE) H 07/13/17 19:00 Vancomycin Trough 23.1 ug/mL (5-10) H 07/22/17 08:00 Random Vancomycin 23.8 ug/mL (5.0-40.0) 07/24/17 04:00 - Physical Exam Vitals and I&O: Vital Signs Temp 98.4 F 07/27/17 04:50 Pulse 84 07/27/17 09:29 Resp 18 07/27/17 07:42 BP 125/64 07/27/17 09:29 Pulse Ox 100 07/27/17 07:42 Intake & Output 07/26/17 07/27/17 07/27/17 18:59 06:59 18:59 Intake Total 316 492.333 Balance 316 492.333 Weight (lbs) 68.946 kg Intake: Intake, IV Amount 316 492.333 D5-0.45NS 1,000 ml @ 20 316 492.333 mls/hr IV .Q24H [facility] Rx#: [id number] Other: Stool Characteristics Soft Weight Source Bedscale Active Medications: Current Medications Acetaminophen (Tylenol) 650 mg PO Q4H PRN PRN Reason: Fever > 101 Stop: 08/30/17 22:06 Last Admin: 07/23/17 10:17 Dose: 650 mg Albuterol/Ipratropium (Duoneb Neb) 3 ml HHN Q4HRT PRN PRN Reason: Wheezing Stop: 08/30/17 22:13 Last Admin: 07/22/17 18:56 Dose: 3 ml Albuterol/Ipratropium (Duoneb Neb) 3 ml HHN Q6HRT [facility] Stop: 08/31/17 00:59 Last Admin: 07/27/17 07:39 Dose: 3 ml Ascorbic Acid (Vitamin C) 500 mg PO DAILY [facility] Stop: 08/31/17 08:59 Last Admin: 07/27/17 09:28 Dose: 500 mg Baclofen (Lioresal) 5 mg PO TID [facility] Stop: 09/06/17 08:59 Last Admin: 07/27/17 09:28 Dose: 5 mg Bisacodyl (Dulcolax 10 Mg Supp) 10 mg RC DAILY PRN PRN Reason: BOWEL CARE MANAGEMENT Stop: 09/20/17 09:14 Budesonide (Pulmicort) 0.5 mg HHN BIDRT [facility] Stop: 08/31/17 18:59 Last Admin: 07/27/17 07:39 Dose: 0.5 mg Cyproheptadine HCl (Periactin) 4 mg PO BID [facility] Stop: 08/31/17 08:59 Last Admin: 07/27/17 09:29 Dose: 4 mg Docusate Sodium (Colace) 100 mg PO BID [facility] Stop: 08/31/17 08:59 Last Admin: 07/27/17 09:28 Dose: 100 mg Ferrous Sulfate (Iron) 325 mg PO BID [facility] Stop: 08/31/17 08:59 Last Admin: 07/27/17 09:28 Dose: 325 mg Folic Acid (Folate) 1 mg PO DAILY [facility] Stop: 08/31/17 08:59 Last Admin: 07/27/17 09:28 Dose: 1 mg Furosemide (Lasix) 20 mg IVP DAILY [facility] Stop: 09/16/17 11:59 Last Admin: 07/27/17 09:29 Dose: 20 mg Norepinephrine Bitartrate 4 mg (/ Sodium Chloride) 254 mls @ 0 mls/hr IV TITR [facility]ADI; Titrate PRN Reason: Protocol Stop: 09/03/17 16:29 Dextrose/Sodium Chloride (D5-0.45ns) 1,000 mls @ 20 mls/hr IV .Q24H [facility] Stop: 09/22/17 09:16 Last Infusion: 07/27/17 09:56 Dose: Infused Lactobacillus Rhamnosus (Culturelle 15b) 1 each PO DAILY [facility] Stop: 09/01/17 08:59 Last Admin: 07/27/17 09:28 Dose: 1 each Lactulose (Cephulac) 20 gm PO QID PRN PRN Reason: Constipation Stop: 08/30/17 22:18 Last Admin: 07/17/17 17:50 Dose: 20 gm Lorazepam (Ativan) 1 mg IVP Q4HR PRN; Protocol PRN Reason: Anxiety Stop: 09/04/17 08:31 Last Admin: 07/18/17 21:49 Dose: 1 mg Losartan Potassium (Cozaar) 50 mg PO DAILY [facility] Stop: 09/23/17 08:59 Last Admin: 07/27/17 09:29 Dose: 50 mg Methylprednisolone Sodium Succinate (Solu-Medrol) 40 mg IVP Q8HR [facility] Stop: 09/09/17 20:59 Last Admin: 07/27/17 04:23 Dose: 40 mg Miscellaneous (Probiotic Screen) 1 ea MC PRN PRN PRN Reason: PROTOCOL Stop: 09/01/17 08:44 Multivitamins/Vitamin C (Theragran) 1 tab PO DAILY [facility] Stop: 08/31/17 08:59 Last Admin: 07/27/17 09:29 Dose: 1 tab Nicotine (Nicotine Transdermal System) 14 mg TD DAILY [facility] Stop: 09/04/17 08:59 Last Admin: 07/27/17 09:24 Dose: 14 mg Pantoprazole Sodium (Protonix) 40 mg IVP BID [facility] Stop: 09/13/17 08:59 Last Admin: 07/27/17 09:29 Dose: 40 mg General: Mild distress, Other (NGT FEEDING) HEENT: Atraumatic, Other Neck: Supple, no JVD, no Thyromegaly Cardiovascular: Regular rate, Normal S1, Normal S2, Other (in A fib) Lungs: Other Abdomen: Bowel sounds, Soft, no Tender, no Hepatomegaly Extremities: no Clubbing Neurological: Other (Pt unable to participate in test) Skin: no Rash Psych/Mental Status: Other (no psychosis) - Procedures Procedures: Procedures Procedure Code Date INSERT EMERGENCY AIRWAY 11394 07/01/17 INSERTION OF ENDOTRACHEAL AIRWAY INTO [place]HE[place], VIA OPENING [id number] 07/01/17 RESPIRATORY VENTILATION, GREATER THAN 96 CONSECUTIVE HOURS [id number] 07/01/17 VENT MGMT INPAT INIT DAY [id number] 07/01/17 Assessment/Plan - Problem List Patient Problems: All Active Problems WEAKESS AND POOR ORAL INTAKE (Acute) - Assessment Assessment: * Advanced metastatic cancer * poor functional status * Anemia likely of chronic disease * Respiratory failure s/p intubation 07/05 off cpap, 07/19 back on vent. 07/20 extubated iron studies cw anemia of chronic disease. monitor hgb and transfuse for < 7.5 07/27:hgb lower today 7.2, transfuse swallow evaluation. very Poor prognosis follow cbc Nutritional Asmnt/Malnutr-PDOC - Dietary Evaluation Malnutrition Findings (Please click <Entered> for more info): Nutritional Asmnt/Malnutrition Start: 07/03/17 13: 22 Text: Status: Complete Freq: Document 07/03/17 13:22 [email or web address] (Rec: 07/03/17 13:35 [email or web address]) Nutritional Asmnt/Malnutrition Patient General Information Nutritional Screening Consult Diagnosis UTI, Failure to thrive, hypokalemia Pertinent Medical Hx/Surgical Hx CAD, HTN, COPD, Stage 4 lung cancer, peripheral neuropathy, constipation, GERD, anxiety, low back pain Subjective Information Consult received for Failure to Thrive. Current Diet Order/ Nutrition Support Regular diet, pureed with mechaical soft Patient / S.O Not Indicated Pertinent Medications Vitamin C, dulcolax, D5-0.45 NS @ 75 ml/hr, colace, iron, folate, lactulose, theragran Pertinent Labs (07/02) P 1.5, Mg 1.7, albumin 2.9 Nutritional Hx/Data Height 1.6 m Height (Calculated Centimeters) 160.0 Current Weight (lbs) 54.885 kg Weight (Calculated Kilograms) 54.9 Weight (Calculated Grams) 41857.7 [place] Body Weight 115 % [place] Body Weight 105 Body Mass Index (BMI) 21.4 Recent Weight Change No Weight Status Approriate GI Symptoms GI Symptoms None Last BM Prior to admission Difficult in: None Food Allergies No Cultural/Ethnic/Moravian Belief None indicated Skin Integrity/Comment: Pradeep 15 Current %PO Poor (25-49%) Estimated Nutritional Goals BEE in Kcals: Using Current wt Calories/Kcals/Kg 55kg CBW (25-30kcal/kg) Kcals Calculated 5758-7024 kcal/day Protein: Using Current wt Protein g/k-1.2 gm/kg Protein Calculated 55-65 gm/day Fluid: ml 0232-8825 ml/day (1 ml/kcal) Nutritional Problem 2. Problem Problem Inadequate oral intake related to Etiology poor appetite aeb Signs/Symptoms: meeting <75% of estimated nutrient needs 1. Problem Problem Altered nutrition related lab values related to Etiology electrolyte imbalance aeb Signs/Symptoms: P 1.5, Mg 1.7 Intervention/Recommendation Comments 1. Continue pureed diet as tolerated by patient. 2. RN To assist with feedings and encourage oral intake. 3. Consider adding Boost plus between meals to optimize calorie and protein intake. Expected Outcomes/Goals Expected Outcomes/Goals Oral intake to meet >75% of needs, weight stable, nutrition labs WNL F/U MR 07/06-
[2017-07-28] MEDS: Albuterol/Ipratropium Neb 3 ML AERS HHN SCH ×4 (01:00→18:55)
[2017-07-28 01:27] LABS: MANUAL DIFF REQUIRED? YES; MEAN PLATELET VOLUME 7.4 fl
[2017-07-28 01:32] LABS: HEMATOCRIT 29.5 % (41.0-60); HEMOGLOBIN 10.1 gm/dL (12-16); MEAN CELL VOLUME 88.2 fl (81-100); MEAN CORPUSCULAR HEMOGLOBIN 30.1 pg (27.0-31.0); MEAN CORPUSCULAR HGB CONC 34.1 pg (28.0-36.0); PLATELET COUNT 238 Th/cmm (150-400); RED BLOOD COUNT 3.34 Mil/cmm (3.80-5.20); RED CELL DISTRIBUTION WIDTH 16.5 % (11.5-20.0)
[2017-07-28 01:34] LABS: WHITE BLOOD COUNT 20.4 Th/cmm (4.8-10.8)
[2017-07-28 04:56] LABS: BAND NEUTROPHILE 1 % (0-10); LYMPHOCYTE 1 % (20-50); NEUTROPHILS 98 % (40-80); PLATELET ESTIMATE ADEQUATE (NORMAL); TOTAL CELLS COUNTED 100
[2017-07-28] MEDS: methylPREDNISolone SS 40 mg Vial IVP SCH ×2 (05:47→12:22)
[2017-07-28 06:32] LABS: HEMATOCRIT 30.7 % (41.0-60); HEMOGLOBIN 10.3 gm/dL (12-16); LYMPHOCYTE ABSOLUTE 0.6 Th/cmm (1.5-3.0); MANUAL DIFF REQUIRED? YES; MEAN CELL VOLUME 88.3 fl (81-100); MEAN CORPUSCULAR HEMOGLOBIN 29.6 pg (27.0-31.0); MEAN CORPUSCULAR HGB CONC 33.5 pg (28.0-36.0); MEAN PLATELET VOLUME 7.1 fl; MONOCYTE ABSOLUTE 0.7 Th/cmm (0.3-1.0); NEUTROPHILE ABSOLUTE 18.7 Th/cmm (1.8-8.0); PLATELET COUNT 234 Th/cmm (150-400); RED BLOOD COUNT 3.48 Mil/cmm (3.80-5.20); RED CELL DISTRIBUTION WIDTH 16.9 % (11.5-20.0)
[2017-07-28 06:50] LABS: ANION GAP 11.4 (7.0-16.0); BUN - UREA NITROGEN 44 mg/dL (7-25); CALCIUM SERUM 8.6 mg/dL (8.6-10.3); CARBON DIOXIDE 30.7 mEq/L (21.0-31.0); CHLORIDE 100 mEq/L (98-107); GLUCOSE 144 mg/dL (70-105); POTASSIUM SERUM 4.1 mEq/L (3.5-5.1); SODIUM SERUM 138 mEq/L (136-145)
[2017-07-28] MEDS: Budesonide 0.5 Mg/2 mL Ud HHN SCH ×2 (07:39→18:55)
[2017-07-28 07:43] LABS: LYMPHOCYTE 5 % (20-50); MONOCYTE 5 % (2-10); NEUTROPHILS 90 % (40-80); PLATELET ESTIMATE ADEQUATE (NORMAL); TOTAL CELLS COUNTED 100
--- NOTE | 2017-07-28 08:56 | General Progress Note ---
Subjective - Review of Systems Service Date: 07/28/17 Subjective: Pt seen and eval. In bed. Seen by jayson, bren, and heme onc, all of whom agree with hospice care. Dr. Montanez also discussed poor prog with son. No fevers or chills. WBC elevated, but improving. No falls. Pt went into A fib pm 07/04/16, and was transferred to ICU on digoxin. Intubated on 07/05/17. Was on Amiodarone and Levophed drip, both of which are off as of 07/06/17. She had large bm night of 07/10/17. Pt was extubated night of 07/19/17. On nasal cannula O2 at 2 L now. Awake, but very weak. Son does not want GT. However, she failed swallow eval on 07/22/17. Will repeat swallow eval today. Will talk to son again re GT. Son is still refusing to decide between GT and hospice. She's tele status now. More awake today. Pt likely to be transferred to LTAC today. Status post blood transfusion on 07/27/17 per GI. Awaiting bed at LTAC. Son changed his mind from [facility] to [place]. Objective - Results Result Diagrams: 07/28/17 06:10 07/28/17 06:10 Recent Labs: Laboratory Last Values WBC 20.0 Th/cmm (4.8-10.8) H 07/28/17 06:10 RBC 3.48 Mil/cmm (3.80-5.20) L 07/28/17 06:10 Hgb 10.3 gm/dL (12-16) L 07/28/17 06:10 Hct 30.7 % (41.0-60) L 07/28/17 06:10 MCV 88.3 fl (81-100) 07/28/17 06:10 MCH 29.6 pg (27.0-31.0) 07/28/17 06:10 MCHC Differential 33.5 pg (28.0-36.0) 07/28/17 06:10 RDW 16.9 % (11.5-20.0) 07/28/17 06:10 Plt Count 234 Th/cmm (150-400) 07/28/17 06:10 MPV 7.1 fl 07/28/17 06:10 Neutrophils % 93.8 % (40.0-80.0) H 07/27/17 06:00 Band Neutrophils % 1 % (0-10) 07/28/17 01:03 Lymphocytes % 3.2 % (20.0-50.0) L 07/27/17 06:00 Monocytes % 2.4 % (2.0-10.0) 07/27/17 06:00 Eosinophils % 0.2 % (0.0-5.0) 07/27/17 06:00 Basophils % 0.4 % (0.0-2.0) 07/27/17 06:00 Neutrophils (Manual) 90 % (40-80) H 07/28/17 06:10 Lymphocytes 5 % (20-50) L 07/28/17 06:10 Monocytes 5 % (2-10) 07/28/17 06:10 Eosinophils 0 % (0-5) 07/24/17 04:00 Basophils 0 % (0-3) 07/24/17 04:00 Hypochromia 1+ 07/21/17 04:30 Platelet Estimate ADEQUATE (NORMAL) 07/28/17 06:10 Platelet Morphology NORMAL (NORMAL) 07/16/17 04:35 Polychromasia 1+ 07/14/17 05:00 Ovalocytes 1+ 07/21/17 04:30 RBC Morph Micro Appear NORMAL (NORMAL) 07/16/17 04:35 Specimen Source Arterial 07/19/17 19:14 Sample Site RIGHT BRACHIAL 07/19/17 19:14 pH 7.44 (7.35-7.45) 07/19/17 19:14 pCO2 39.0 mmHg (35.0-45.0) 07/19/17 19:14 pO2 179.0 mmHg (80.0-100.0) H 07/19/17 19:14 HCO3 26.7 mEq/L (20.0-26.0) H 07/19/17 19:14 Base Excess 2.2 mEq/L (-3.0-3.0) 07/19/17 19:14 O2 Saturation 100.0 % (92.0-100.0) 07/19/17 19:14 Darius Test Positive 07/19/17 19:14 Vent Rate NA 07/18/17 10:48 Inspired O2 40 07/19/17 19:14 Tidal Volume NA 07/18/17 10:48 PEEP NA 07/18/17 10:48 Pressure (ins/psv/peep) NA 07/18/17 10:48 Critical Value SC 07/19/17 19:14 Sodium 138 mEq/L (136-145) 07/28/17 06:10 Potassium 4.1 mEq/L (3.5-5.1) 07/28/17 06:10 Chloride 100 mEq/L (98-107) 07/28/17 06:10 Carbon Dioxide 30.7 mEq/L (21.0-31.0) 07/28/17 06:10 Anion Gap 11.4 (7.0-16.0) 07/28/17 06:10 BUN 44 mg/dL (7-25) H 07/28/17 06:10 Creatinine 1.0 mg/dL (0.6-1.2) 07/28/17 06:10 Est GFR ( Amer) TNP 07/28/17 06:10 Est GFR (Non-Af Amer) TNP 07/28/17 06:10 BUN/Creatinine Ratio 44.0 07/28/17 06:10 Glucose 144 mg/dL (70-105) H 07/28/17 06:10 POC Glucose 177 MG/DL (70 - 105) H 07/14/17 11:26 Hemoglobin A1c % 5.2 % (4.0-6.0) 07/17/17 04:33 Whole Bld Lactic Acid 3.99 mmol/L (0.60-1.99) H* 07/05/17 13:00 Calcium 8.6 mg/dL (8.6-10.3) 07/28/17 06:10 Phosphorus 1.5 mg/dL (2.5-5.0) L 07/02/17 05:20 Magnesium 1.7 mg/dL (1.9-2.7) L 07/02/17 05:20 Iron 21 07/03/17 05:48 TIBC 131 07/03/17 05:48 Iron Saturation 16 07/03/17 05:48 Unsaturated IBC 110 07/03/17 05:48 Ferritin 334 ng/mL (15-150) H 07/03/17 05:48 Total Bilirubin 0.5 mg/dL (0.3-1.0) 07/05/17 06:05 AST 16 U/L (13-39) 07/05/17 06:05 ALT 8 U/L (7-52) 07/05/17 06:05 Alkaline Phosphatase 66 U/L (34-104) 07/05/17 06:05 Troponin I 0.09 ng/mL (0.01-0.05) H* D 07/04/17 05:50 B-Natriuretic Peptide 215.0 pg/mL (5.0-100.0) H 07/01/17 14:10 Total Protein 5.6 gm/dL (6.0-8.3) L 07/05/17 06:05 Albumin 2.6 gm/dL (3.7-5.3) L 07/05/17 06:05 Globulin 3.0 gm/dL 07/05/17 06:05 Albumin/Globulin Ratio 0.9 (1.0-1.8) L 07/05/17 06:05 Triglycerides 107 mg/dL (<150) 07/04/17 05:50 Cholesterol 114 mg/dL (<200) 07/04/17 05:50 LDL Cholesterol Direct 59 mg/dL (75-193) L 07/04/17 05:50 HDL Cholesterol 31 mg/dL (23-92) 07/04/17 05:50 TSH 1.46 uIU/ml (0.34-5.60) 07/04/17 05:50 Urine Source CATH 07/05/17 18:30 Urine Color YELLOW 07/05/17 18:30 Urine Clarity CLOUDY (CLEAR) H 07/05/17 18:30 Urine pH 5.5 (4.6 - 8.0) 07/05/17 18:30 Ur Specific Browns 1.025 (1.005-1.030) 07/05/17 18:30 Urine Protein 30 mg/dL (NEGATIVE) H 07/05/17 18:30 Urine Glucose (UA) NEGATIVE mg/dL (NEGATIVE) 07/05/17 18:30 Urine Ketones TRACE mg/dL (NEGATIVE) 07/05/17 18:30 Urine Blood SMALL (NEGATIVE) H 07/05/17 18:30 Urine Nitrate NEGATIVE (NEGATIVE) 07/05/17 18:30 Urine Bilirubin NEGATIVE (NEGATIVE) 07/05/17 18:30 Urine Urobilinogen 0.2 E.U./dL (0.2 - 1.0) 07/05/17 18:30 Ur Leukocyte Esterase LARGE (NEGATIVE) H 07/05/17 18:30 Urine RBC 2-5 /hpf (0-5) 07/05/17 18:30 Urine WBC >100 /hpf (0-5) H 07/05/17 18:30 Ur Epithelial Cells FEW /lpf (FEW) 07/05/17 18:30 Urine Bacteria FEW /hpf (NONE SEEN) 07/05/17 18:30 Urine Yeast FEW /hpf (NONE SEEN) H 07/05/17 18:30 Stool Occult Blood POSITIVE (NEGATIVE) H 07/13/17 19:00 Vancomycin Trough 23.1 ug/mL (5-10) H 07/22/17 08:00 Random Vancomycin 23.8 ug/mL (5.0-40.0) 07/24/17 04:00 Blood Type B POSITIVE 07/27/17 10:10 Antibody Screen NEGATIVE 07/27/17 10:10 Crossmatch See Detail 07/27/17 10:10 - Physical Exam Vitals and I&O: Vital Signs Temp 98.7 F 07/28/17 04:00 Pulse 82 07/28/17 08:16 Resp 20 07/28/17 08:16 BP 159/68 07/28/17 08:16 Pulse Ox 100 07/28/17 08:16 Intake & Output 07/27/17 07/28/17 07/28/17 18:59 06:59 18:59 Intake Total 492.333 Balance 492.333 Intake: Intake, IV Amount 492.333 D5-0.45NS 1,000 ml @ 20 492.333 mls/hr IV .Q24H [facility] Rx#: [id number] Other: Stool Characteristics Soft Soft Active Medications: Current Medications Acetaminophen (Tylenol) 650 mg PO Q4H PRN PRN Reason: Fever > 101 Stop: 08/30/17 22:06 Last Admin: 07/23/17 10:17 Dose: 650 mg Albuterol/Ipratropium (Duoneb Neb) 3 ml HHN Q4HRT PRN PRN Reason: Wheezing Stop: 08/30/17 22:13 Last Admin: 07/22/17 18:56 Dose: 3 ml Albuterol/Ipratropium (Duoneb Neb) 3 ml HHN Q6HRT SHADI Stop: 08/31/17 00:59 Last Admin: 07/28/17 07:40 Dose: 3 ml Ascorbic Acid (Vitamin C) 500 mg PO DAILY SHADI Stop: 08/31/17 08:59 Last Admin: 07/27/17 09:28 Dose: 500 mg Baclofen (Lioresal) 5 mg PO TID SHADI Stop: 09/06/17 08:59 Last Admin: 07/27/17 21:38 Dose: 5 mg Bisacodyl (Dulcolax 10 Mg Supp) 10 mg RC DAILY PRN PRN Reason: BOWEL CARE MANAGEMENT Stop: 09/20/17 09:14 Budesonide (Pulmicort) 0.5 mg HHN BIDRT [facility] Stop: 08/31/17 18:59 Last Admin: 07/28/17 07:39 Dose: 0.5 mg Cyproheptadine HCl (Periactin) 4 mg PO BID SHADI Stop: 08/31/17 08:59 Last Admin: 07/27/17 18:31 Dose: 4 mg Docusate Sodium (Colace) 100 mg PO BID [facility] Stop: 08/31/17 08:59 Last Admin: 07/27/17 18:31 Dose: 100 mg Ferrous Sulfate (Iron) 325 mg PO BID [facility] Stop: 08/31/17 08:59 Last Admin: 07/27/17 18:31 Dose: 325 mg Folic Acid (Folate) 1 mg PO DAILY SHADI Stop: 08/31/17 08:59 Last Admin: 07/27/17 09:28 Dose: 1 mg Furosemide (Lasix) 20 mg IVP DAILY [facility] Stop: 09/16/17 11:59 Last Admin: 07/27/17 09:29 Dose: 20 mg Dextrose/Sodium Chloride (D5-0.45ns) 1,000 mls @ 20 mls/hr IV .Q24H [facility]ADI Stop: 09/22/17 09:16 Last Infusion: 07/27/17 09:56 Dose: Infused Lactulose (Cephulac) 20 gm PO QID PRN PRN Reason: Constipation Stop: 08/30/17 22:18 Last Admin: 07/17/17 17:50 Dose: 20 gm Lorazepam (Ativan) 1 mg IVP Q4HR PRN; Protocol PRN Reason: Anxiety Stop: 09/04/17 08:31 Last Admin: 07/18/17 21:49 Dose: 1 mg Losartan Potassium (Cozaar) 50 mg PO DAILY SHADI Stop: 09/23/17 08:59 Last Admin: 07/27/17 09:29 Dose: 50 mg Methylprednisolone Sodium Succinate (Solu-Medrol) 40 mg IVP Q8HR SHADI Stop: 09/09/17 20:59 Last Admin: 07/28/17 05:47 Dose: 40 mg Miscellaneous (Probiotic Screen) 1 ea MC PRN PRN PRN Reason: PROTOCOL Stop: 09/01/17 08:44 Multivitamins/Vitamin C (Theragran) 1 tab PO DAILY SHADI Stop: 08/31/17 08:59 Last Admin: 07/27/17 09:29 Dose: 1 tab Nicotine (Nicotine Transdermal System) 14 mg TD DAILY SHADI Stop: 09/04/17 08:59 Last Admin: 07/27/17 09:24 Dose: 14 mg Pantoprazole Sodium (Protonix) 40 mg IVP BID SHADI Stop: 09/13/17 08:59 Last Admin: 07/27/17 18:30 Dose: 40 mg General: Mild distress, Other (NGT FEEDING) HEENT: Atraumatic, Other Neck: Supple, no JVD, no Thyromegaly Cardiovascular: Regular rate, Normal S1, Normal S2, Other (in A fib) Lungs: Other Abdomen: Bowel sounds, Soft, no Tender, no Hepatomegaly Extremities: no Clubbing Neurological: Other (Pt unable to participate in test) Skin: no Rash Psych/Mental Status: Other (no psychosis) - Procedures Procedures: Procedures Procedure Code Date INSERT EMERGENCY AIRWAY 32358 07/01/17 INSERTION OF ENDOTRACHEAL AIRWAY INTO TRACHEA, VIA OPENING [id number] 07/01/17 RESPIRATORY VENTILATION, GREATER THAN 96 CONSECUTIVE HOURS [id number] 07/01/17 VENT MGMT INPAT INIT DAY 54268 07/01/17 Assessment/Plan - Problem List Patient Problems: All Active Problems WEAKESS AND POOR ORAL INTAKE (Acute) - Assessment Assessment: Septic shock A fib with RVR Fail to thrive Stage 4 lung ca Sepsis due to E Coli UTI ME Ch pain syn Anemia of ch ill Hypernatremia Hypokalemia Type 2 ID A fib - Plan Plan: Pt holds a poor progonosis. Been trying to communicate poor prognosis to the son. He wants "everything done. " Cardio, Pulm, and Heme Onc seeing pt, all of whom agree with comfort care/ hospice. On IV Zosyn and Vanco. Has been on Amiodarone and Levphed drip in ICU-now off as off 07/06/17. Intubated on 07/05/17; extubated on night of 07/19/17 Elec corrected. I's and O's reviewed. Pt holds a poor prognosis. Son still wants everything done. No drips. Pt responsive. Weaning tried on 07/10/17, but could not tolerate it. But ultimately extubated on 07/19/17. Hgb dropping. Holding Xarelto as of 07/11/17. Checked stool OB times 2-both postive. GI on the case. FU on CBC and Chem 7. Again, advised son of the grave prognosis and the fact that pt has poor quality of life and it will not improve. He still wants "everything done." As of 07/18/17, she was on CPAP, then extubated night on 07/19/17. Consider swallow eval tomorrow when she's more alert. GI following for stool OB times 2. However, pt too unstable for procedure per GI. SNF eval. Son doesn't want GT. Pt failed swallow eval on 07/22/17. She's now tele status. Pt failed 2nd swallow eval on 07/26/17. Possible LTAC dc today. Status post blood transfuion on 07/27/17 per GI. Pt's son changed his mind from [place] to [place]. Nutritional Asmnt/Malnutr-PDOC - Dietary Evaluation Malnutrition Findings (Please click <Entered> for more info): Nutritional Asmnt/Malnutrition Start: 07/03/17 13: 22 Text: Status: Complete Freq: Document 07/03/17 13:22 URBAN (Rec: 07/03/17 13:35 MMKENY ELLER- [email or web address]) Nutritional Asmnt/Malnutrition Patient General Information Nutritional Screening Consult Diagnosis UTI, Failure to thrive, hypokalemia Pertinent Medical Hx/Surgical Hx CAD, HTN, COPD, Stage 4 lung cancer, peripheral neuropathy, constipation, GERD, anxiety, low back pain Subjective Information Consult received for Failure to Thrive. Current Diet Order/ Nutrition Support Regular diet, pureed with mechaical soft Patient / S.O Not Indicated Pertinent Medications Vitamin C, dulcolax, D5-0.45 NS @ 75 ml/hr, colace, iron, folate, lactulose, theragran Pertinent Labs (07/02) P 1.5, Mg 1.7, albumin 2.9 Nutritional Hx/Data Height 1.6 m Height (Calculated Centimeters) 160.0 Current Weight (lbs) 54.885 kg Weight (Calculated Kilograms) 54.9 Weight (Calculated Grams) 75895.7 [place] Body Weight 115 % [place] Body Weight 105 Body Mass Index (BMI) 21.4 Recent Weight Change No Weight Status Approriate GI Symptoms GI Symptoms None Last BM Prior to admission Difficult in: None Food Allergies No Cultural/Ethnic/Christian Belief None indicated Skin Integrity/Comment: Pradeep 15 Current %PO Poor (25-49%) Estimated Nutritional Goals BEE in Kcals: Using Current wt Calories/Kcals/Kg 55kg CBW (25-30kcal/kg) Kcals Calculated 7882-2663 kcal/day Protein: Using Current wt Protein g/k-1.2 gm/kg Protein Calculated 55-65 gm/day Fluid: ml 5152-9397 ml/day (1 ml/kcal) Nutritional Problem 2. Problem Problem Inadequate oral intake related to Etiology poor appetite aeb Signs/Symptoms: meeting <75% of estimated nutrient needs 1. Problem Problem Altered nutrition related lab values related to Etiology electrolyte imbalance aeb Signs/Symptoms: P 1.5, Mg 1.7 Intervention/Recommendation Comments 1. Continue pureed diet as tolerated by patient. 2. RN To assist with feedings and encourage oral intake. 3. Consider adding Boost plus between meals to optimize calorie and protein intake. Expected Outcomes/Goals Expected Outcomes/Goals Oral intake to meet >75% of needs, weight stable, nutrition labs WNL F/U MR 07/06-
--- NOTE | 2017-07-28 09:20 | Diagnostic Imaging Report ---
Portable chest x-ray HISTORY: Shortness of breath The overall heart size is difficult to assess with portable technique. Atherosclerotic calcination seen in the aorta. Generalized accentuation of the interstitial markings in the left lower lobe. Changes may be chronic. Pneumonia cannot be excluded. Clinical correlation is needed. Nasogastric tube extends into the region of the stomach. IMPRESSION: 1. Generalized accentuation of the interstitial markings particularly in the left lower lobe. This appears somewhat more pronounced than on a prior exam of 07/23/2017. Differences may be related to radiographic technique. Findings may be chronic. However, early pneumonia is difficult to exclude. Clinical correlation is needed.
--- NOTE | 2017-07-28 09:53 | General Progress Note ---
Subjective - Review of Systems Service Date: 07/28/17 Subjective: opens eyes, more alert NGT feeding Objective - Results Result Diagrams: 07/28/17 06:10 07/28/17 06:10 Recent Labs: Laboratory Last Values WBC 20.0 Th/cmm (4.8-10.8) H 07/28/17 06:10 RBC 3.48 Mil/cmm (3.80-5.20) L 07/28/17 06:10 Hgb 10.3 gm/dL (12-16) L 07/28/17 06:10 Hct 30.7 % (41.0-60) L 07/28/17 06:10 MCV 88.3 fl (81-100) 07/28/17 06:10 MCH 29.6 pg (27.0-31.0) 07/28/17 06:10 MCHC Differential 33.5 pg (28.0-36.0) 07/28/17 06:10 RDW 16.9 % (11.5-20.0) 07/28/17 06:10 Plt Count 234 Th/cmm (150-400) 07/28/17 06:10 MPV 7.1 fl 07/28/17 06:10 Neutrophils % 93.8 % (40.0-80.0) H 07/27/17 06:00 Band Neutrophils % 1 % (0-10) 07/28/17 01:03 Lymphocytes % 3.2 % (20.0-50.0) L 07/27/17 06:00 Monocytes % 2.4 % (2.0-10.0) 07/27/17 06:00 Eosinophils % 0.2 % (0.0-5.0) 07/27/17 06:00 Basophils % 0.4 % (0.0-2.0) 07/27/17 06:00 Neutrophils (Manual) 90 % (40-80) H 07/28/17 06:10 Lymphocytes 5 % (20-50) L 07/28/17 06:10 Monocytes 5 % (2-10) 07/28/17 06:10 Eosinophils 0 % (0-5) 07/24/17 04:00 Basophils 0 % (0-3) 07/24/17 04:00 Hypochromia 1+ 07/21/17 04:30 Platelet Estimate ADEQUATE (NORMAL) 07/28/17 06:10 Platelet Morphology NORMAL (NORMAL) 07/16/17 04:35 Polychromasia 1+ 07/14/17 05:00 Ovalocytes 1+ 07/21/17 04:30 RBC Morph Micro Appear NORMAL (NORMAL) 07/16/17 04:35 Specimen Source Arterial 07/19/17 19:14 Sample Site RIGHT BRACHIAL 07/19/17 19:14 pH 7.44 (7.35-7.45) 07/19/17 19:14 pCO2 39.0 mmHg (35.0-45.0) 07/19/17 19:14 pO2 179.0 mmHg (80.0-100.0) H 07/19/17 19:14 HCO3 26.7 mEq/L (20.0-26.0) H 07/19/17 19:14 Base Excess 2.2 mEq/L (-3.0-3.0) 07/19/17 19:14 O2 Saturation 100.0 % (92.0-100.0) 07/19/17 19:14 Darius Test Positive 07/19/17 19:14 Vent Rate NA 07/18/17 10:48 Inspired O2 40 07/19/17 19:14 Tidal Volume NA 07/18/17 10:48 PEEP NA 07/18/17 10:48 Pressure (ins/psv/peep) NA 07/18/17 10:48 Critical Value SC 07/19/17 19:14 Sodium 138 mEq/L (136-145) 07/28/17 06:10 Potassium 4.1 mEq/L (3.5-5.1) 07/28/17 06:10 Chloride 100 mEq/L (98-107) 07/28/17 06:10 Carbon Dioxide 30.7 mEq/L (21.0-31.0) 07/28/17 06:10 Anion Gap 11.4 (7.0-16.0) 07/28/17 06:10 BUN 44 mg/dL (7-25) H 07/28/17 06:10 Creatinine 1.0 mg/dL (0.6-1.2) 07/28/17 06:10 Est GFR ( Amer) TNP 07/28/17 06:10 Est GFR (Non-Af Amer) TNP 07/28/17 06:10 BUN/Creatinine Ratio 44.0 05/10/18 06:10 Glucose 144 mg/dL (70-105) H 07/28/17 06:10 POC Glucose 177 MG/DL (70 - 105) H 07/14/17 11:26 Hemoglobin A1c % 5.2 % (4.0-6.0) 07/17/17 04:33 Whole Bld Lactic Acid 3.99 mmol/L (0.60-1.99) H* 07/05/17 13:00 Calcium 8.6 mg/dL (8.6-10.3) 07/28/17 06:10 Phosphorus 1.5 mg/dL (2.5-5.0) L 07/02/17 05:20 Magnesium 1.7 mg/dL (1.9-2.7) L 07/02/17 05:20 Iron 21 07/03/17 05:48 TIBC 131 07/03/17 05:48 Iron Saturation 16 07/03/17 05:48 Unsaturated IBC 110 07/03/17 05:48 Ferritin 334 ng/mL (15-150) H 07/03/17 05:48 Total Bilirubin 0.5 mg/dL (0.3-1.0) 07/05/17 06:05 AST 16 U/L (13-39) 07/05/17 06:05 ALT 8 U/L (7-52) 07/05/17 06:05 Alkaline Phosphatase 66 U/L (34-104) 07/05/17 06:05 Troponin I 0.09 ng/mL (0.01-0.05) H* D 07/04/17 05:50 B-Natriuretic Peptide 215.0 pg/mL (5.0-100.0) H 07/01/17 14:10 Total Protein 5.6 gm/dL (6.0-8.3) L 07/05/17 06:05 Albumin 2.6 gm/dL (3.7-5.3) L 07/05/17 06:05 Globulin 3.0 gm/dL 07/05/17 06:05 Albumin/Globulin Ratio 0.9 (1.0-1.8) L 07/05/17 06:05 Triglycerides 107 mg/dL (<150) 07/04/17 05:50 Cholesterol 114 mg/dL (<200) 07/04/17 05:50 LDL Cholesterol Direct 59 mg/dL (75-193) L 07/04/17 05:50 HDL Cholesterol 31 mg/dL (23-92) 07/04/17 05:50 TSH 1.46 uIU/ml (0.34-5.60) 07/04/17 05:50 Urine Source CATH 07/05/17 18:30 Urine Color YELLOW 07/05/17 18:30 Urine Clarity CLOUDY (CLEAR) H 07/05/17 18:30 Urine pH 5.5 (4.6 - 8.0) 07/05/17 18:30 Ur Specific [place] 1.025 (1.005-1.030) 07/05/17 18:30 Urine Protein 30 mg/dL (NEGATIVE) H 07/05/17 18:30 Urine Glucose (UA) NEGATIVE mg/dL (NEGATIVE) 07/05/17 18:30 Urine Ketones TRACE mg/dL (NEGATIVE) 07/05/17 18:30 Urine Blood SMALL (NEGATIVE) H 07/05/17 18:30 Urine Nitrate NEGATIVE (NEGATIVE) 07/05/17 18:30 Urine Bilirubin NEGATIVE (NEGATIVE) 07/05/17 18:30 Urine Urobilinogen 0.2 E.U./dL (0.2 - 1.0) 07/05/17 18:30 Ur Leukocyte Esterase LARGE (NEGATIVE) H 07/05/17 18:30 Urine RBC 2-5 /hpf (0-5) 07/05/17 18:30 Urine WBC >100 /hpf (0-5) H 07/05/17 18:30 Ur Epithelial Cells FEW /lpf (FEW) 07/05/17 18:30 Urine Bacteria FEW /hpf (NONE SEEN) 07/05/17 18:30 Urine Yeast FEW /hpf (NONE SEEN) H 07/05/17 18:30 Stool Occult Blood POSITIVE (NEGATIVE) H 07/13/17 19:00 Vancomycin Trough 23.1 ug/mL (5-10) H 07/22/17 08:00 Random Vancomycin 23.8 ug/mL (5.0-40.0) 07/24/17 04:00 Blood Type B POSITIVE 07/27/17 10:10 Antibody Screen NEGATIVE 07/27/17 10:10 Crossmatch See Detail 07/27/17 10:10 - Physical Exam Vitals and I&O: Vital Signs Temp 98.7 F 07/28/17 04:00 Pulse 82 07/28/17 08:16 Resp 20 07/28/17 08:16 BP 159/68 07/28/17 08:16 Pulse Ox 100 07/28/17 08:16 Intake & Output 07/27/17 07/28/17 07/28/17 18:59 06:59 18:59 Intake Total 492.333 Balance 492.333 Intake: Intake, IV Amount 492.333 D5-0.45NS 1,000 ml @ 20 492.333 mls/hr IV .Q24H [facility] Rx#: [id number] Other: Stool Characteristics Soft Soft Active Medications: Current Medications Acetaminophen (Tylenol) 650 mg PO Q4H PRN PRN Reason: Fever > 101 Stop: 08/30/17 22:06 Last Admin: 07/23/17 10:17 Dose: 650 mg Albuterol/Ipratropium (Duoneb Neb) 3 ml HHN Q4HRT PRN PRN Reason: Wheezing Stop: 08/30/17 22:13 Last Admin: 07/22/17 18:56 Dose: 3 ml Albuterol/Ipratropium (Duoneb Neb) 3 ml HHN Q6HRT [facility] Stop: 08/31/17 00:59 Last Admin: 07/28/17 07:40 Dose: 3 ml Ascorbic Acid (Vitamin C) 500 mg PO DAILY [facility] Stop: 08/31/17 08:59 Last Admin: 07/27/17 09:28 Dose: 500 mg Baclofen (Lioresal) 5 mg PO TID [facility] Stop: 09/06/17 08:59 Last Admin: 07/27/17 21:38 Dose: 5 mg Bisacodyl (Dulcolax 10 Mg Supp) 10 mg RC DAILY PRN PRN Reason: [employer] Stop: 09/20/17 09:14 Budesonide (Pulmicort) 0.5 mg HHN BIDRT [facility] Stop: 08/31/17 18:59 Last Admin: 07/28/17 07:39 Dose: 0.5 mg Cyproheptadine HCl (Periactin) 4 mg PO BID [facility] Stop: 08/31/17 08:59 Last Admin: 07/27/17 18:31 Dose: 4 mg Docusate Sodium (Colace) 100 mg PO BID [facility] Stop: 08/31/17 08:59 Last Admin: 07/27/17 18:31 Dose: 100 mg Ferrous Sulfate (Iron) 325 mg PO BID [facility] Stop: 08/31/17 08:59 Last Admin: 07/27/17 18:31 Dose: 325 mg Folic Acid (Folate) 1 mg PO DAILY [facility] Stop: 08/31/17 08:59 Last Admin: 07/27/17 09:28 Dose: 1 mg Furosemide (Lasix) 20 mg IVP DAILY [facility] Stop: 09/16/17 11:59 Last Admin: 07/27/17 09:29 Dose: 20 mg Dextrose/Sodium Chloride (D5-0.45ns) 1,000 mls @ 20 mls/hr IV .Q24H [facility] Stop: 09/22/17 09:16 Last Infusion: 07/27/17 09:56 Dose: Infused Lactulose (Cephulac) 20 gm PO QID PRN PRN Reason: Constipation Stop: 08/30/17 22:18 Last Admin: 07/17/17 17:50 Dose: 20 gm Lorazepam (Ativan) 1 mg IVP Q4HR PRN; Protocol PRN Reason: Anxiety Stop: 09/04/17 08:31 Last Admin: 07/18/17 21:49 Dose: 1 mg Losartan Potassium (Cozaar) 50 mg PO DAILY [facility] Stop: 09/23/17 08:59 Last Admin: 07/27/17 09:29 Dose: 50 mg Methylprednisolone Sodium Succinate (Solu-Medrol) 40 mg IVP Q8HR [facility] Stop: 09/09/17 20:59 Last Admin: 07/28/17 05:47 Dose: 40 mg Miscellaneous (Probiotic Screen) 1 ea MC PRN PRN PRN Reason: PROTOCOL Stop: 09/01/17 08:44 Multivitamins/Vitamin C (Theragran) 1 tab PO DAILY [facility] Stop: 08/31/17 08:59 Last Admin: 07/27/17 09:29 Dose: 1 tab Nicotine (Nicotine Transdermal System) 14 mg TD DAILY [facility] Stop: 09/04/17 08:59 Last Admin: 07/27/17 09:24 Dose: 14 mg Pantoprazole Sodium (Protonix) 40 mg IVP BID [facility] Stop: 09/13/17 08:59 Last Admin: 07/27/17 18:30 Dose: 40 mg General: Mild distress, Other (NGT FEEDING) HEENT: Atraumatic, Other Neck: Supple, no JVD, no Thyromegaly Cardiovascular: Regular rate, Normal S1, Normal S2, Other (in A fib) Lungs: Other Abdomen: Bowel sounds, Soft, no Tender, no Hepatomegaly Extremities: no Clubbing Neurological: Other (Pt unable to participate in test) Skin: no Rash Psych/Mental Status: Other (no psychosis) - Procedures Procedures: Procedures Procedure Code Date INSERT EMERGENCY AIRWAY 53597 07/01/17 INSERTION OF ENDOTRACHEAL AIRWAY INTO TRACHEA, VIA OPENING [id number] 07/01/17 RESPIRATORY VENTILATION, GREATER THAN 96 CONSECUTIVE HOURS [id number] 07/01/[place] [address] 07/01/17 Assessment/Plan - Problem List Patient Problems: All Active Problems WEAKESS AND POOR ORAL INTAKE (Acute) - Assessment Assessment: * Advanced metastatic cancer * poor functional status * Anemia likely of chronic disease * Respiratory failure s/p intubation 07/05 off cpap, 07/19 back on vent. 07/20 extubated iron studies cw anemia of chronic disease. monitor hgb and transfuse for < 7.5 07/27:hgb lower today 7.2, transfuse 07/28: s/p transfusion; hgb 10.2 swallow evaluation. very Poor prognosis follow cbc Nutritional Asmnt/Malnutr-PDOC - Dietary Evaluation Malnutrition Findings (Please click <Entered> for more info): Nutritional Asmnt/Malnutrition Start: 07/03/17 13: 22 Text: Status: Complete Freq: Document 07/03/17 13:22 MMULHERN (Rec: 07/03/17 13:35 [facility] Nutritional Asmnt/Malnutrition Patient General Information Nutritional Screening Consult Diagnosis UTI, Failure to thrive, hypokalemia Pertinent Medical Hx/Surgical Hx CAD, HTN, COPD, Stage 4 lung cancer, peripheral neuropathy, constipation, GERD, anxiety, low back pain Subjective Information Consult received for Failure to Thrive. Current Diet Order/ Nutrition Support Regular diet, pureed with mechaical soft Patient / S.O Not Indicated Pertinent Medications Vitamin C, dulcolax, D5-0.45 NS @ 75 ml/hr, colace, iron, folate, lactulose, theragran Pertinent Labs (07/02) P 1.5, Mg 1.7, albumin 2.9 Nutritional Hx/Data Height 1.6 m Height (Calculated Centimeters) 160.0 Current Weight (lbs) 54.885 kg Weight (Calculated Kilograms) 54.9 Weight (Calculated Grams) 86358.7 [place] Body Weight 115 % [place] Body Weight 105 Body Mass Index (BMI) 21.4 Recent Weight Change No Weight Status Approriate GI Symptoms GI Symptoms None Last BM Prior to admission Difficult in: None Food Allergies No Cultural/Ethnic/[employer] Belief None indicated Skin Integrity/Comment: Pradeep 15 Current %PO Poor (25-49%) Estimated Nutritional Goals BEE in Kcals: Using Current wt Calories/Kcals/Kg 55kg CBW (25-30kcal/kg) Kcals Calculated 1283-0454 kcal/day Protein: Using Current wt Protein g/k-1.2 gm/kg Protein Calculated 55-65 gm/day Fluid: ml 6899-9223 ml/day (1 ml/kcal) Nutritional Problem 2. Problem Problem Inadequate oral intake related to Etiology poor appetite aeb Signs/Symptoms: meeting <75% of estimated nutrient needs 1. Problem Problem Altered nutrition related lab values related to Etiology electrolyte imbalance aeb Signs/Symptoms: P 1.5, Mg 1.7 Intervention/Recommendation Comments 1. Continue pureed diet as tolerated by patient. 2. RN To assist with feedings and encourage oral intake. 3. Consider adding Boost plus between meals to optimize calorie and protein intake. Expected Outcomes/Goals Expected Outcomes/Goals Oral intake to meet >75% of needs, weight stable, nutrition labs WNL F/U MR 07/06-
[2017-07-28] MEDS: Ferrous Sulfate 325 MG TAB PO SCH (09:58)
[2017-07-28] MEDS: Nicotine 14 mg/24 hr Tdm TD SCH (09:59)
[2017-07-28] MEDS: Multivitamin Tab PO SCH (10:05)
[2017-07-28] MEDS: Cyproheptadine 4 mg Tab PO SCH (10:06)
--- NOTE | 2017-07-28 10:43 | Infectious Disease Prog Note ---
Infectious Disease Subjective - Review of Systems Service Date: 07/28/17 Subjective: There is no new change. Patient remains off vent. Failed swallow eval. Family refused peg placement. Low grade fever. leukocytosis is waxing and waning, likely reactive. Infectious Disease Objective - Results Result Diagrams: 07/28/17 06:10 07/28/17 06:10 Recent Labs: Laboratory Last Values WBC 20.0 Th/cmm (4.8-10.8) H 07/28/17 06:10 RBC 3.48 Mil/cmm (3.80-5.20) L 07/28/17 06:10 Hgb 10.3 gm/dL (12-16) L 07/28/17 06:10 Hct 30.7 % (41.0-60) L 07/28/17 06:10 MCV 88.3 fl (81-100) 07/28/17 06:10 MCH 29.6 pg (27.0-31.0) 07/28/17 06:10 MCHC Differential 33.5 pg (28.0-36.0) 07/28/17 06:10 RDW 16.9 % (11.5-20.0) 07/28/17 06:10 Plt Count 234 Th/cmm (150-400) 07/28/17 06:10 MPV 7.1 fl 07/28/17 06:10 Neutrophils % 93.8 % (40.0-80.0) H 07/27/17 06:00 Band Neutrophils % 1 % (0-10) 07/28/17 01:03 Lymphocytes % 3.2 % (20.0-50.0) L 07/27/17 06:00 Monocytes % 2.4 % (2.0-10.0) 07/27/17 06:00 Eosinophils % 0.2 % (0.0-5.0) 07/27/17 06:00 Basophils % 0.4 % (0.0-2.0) 07/27/17 06:00 Neutrophils (Manual) 90 % (40-80) H 07/28/17 06:10 Lymphocytes 5 % (20-50) L 07/28/17 06:10 Monocytes 5 % (2-10) 07/28/17 06:10 Eosinophils 0 % (0-5) 07/24/17 04:00 Basophils 0 % (0-3) 07/24/17 04:00 Hypochromia 1+ 07/21/17 04:30 Platelet Estimate ADEQUATE (NORMAL) 07/28/17 06:10 Platelet Morphology NORMAL (NORMAL) 07/16/17 04:35 Polychromasia 1+ 07/14/17 05:00 Ovalocytes 1+ 07/21/17 04:30 RBC Morph Micro Appear NORMAL (NORMAL) 07/16/17 04:35 Specimen Source Arterial 07/19/17 19:14 Sample Site RIGHT BRACHIAL 07/19/17 19:14 pH 7.44 (7.35-7.45) 07/19/17 19:14 pCO2 39.0 mmHg (35.0-45.0) 07/19/17 19:14 pO2 179.0 mmHg (80.0-100.0) H 07/19/17 19:14 HCO3 26.7 mEq/L (20.0-26.0) H 07/19/17 19:14 Base Excess 2.2 mEq/L (-3.0-3.0) 07/19/17 19:14 O2 Saturation 100.0 % (92.0-100.0) 07/19/17 19:14 Darius Test Positive 07/19/17 19:14 Vent Rate NA 07/18/17 10:48 Inspired O2 40 07/19/17 19:14 Tidal Volume NA 07/18/17 10:48 PEEP NA 07/18/17 10:48 Pressure (ins/psv/peep) NA 07/18/17 10:48 Critical Value SC 07/19/17 19:14 Sodium 138 mEq/L (136-145) 07/28/17 06:10 Potassium 4.1 mEq/L (3.5-5.1) 07/28/17 06:10 Chloride 100 mEq/L (98-107) 07/28/17 06:10 Carbon Dioxide 30.7 mEq/L (21.0-31.0) 07/28/17 06:10 Anion Gap 11.4 (7.0-16.0) 07/28/17 06:10 BUN 44 mg/dL (7-25) H 07/28/17 06:10 Creatinine 1.0 mg/dL (0.6-1.2) 07/28/17 06:10 Est GFR ( Amer) TNP 07/28/17 06:10 Est GFR (Non-Af Amer) TNP 07/28/17 06:10 BUN/Creatinine Ratio 44.0 07/28/17 06:10 Glucose 144 mg/dL (70-105) H 07/28/17 06:10 POC Glucose 177 MG/DL (70 - 105) H 07/14/17 11:26 Hemoglobin A1c % 5.2 % (4.0-6.0) 07/17/17 04:33 Whole Bld Lactic Acid 3.99 mmol/L (0.60-1.99) H* 07/05/17 13:00 Calcium 8.6 mg/dL (8.6-10.3) 07/28/17 06:10 Phosphorus 1.5 mg/dL (2.5-5.0) L 07/02/17 05:20 Magnesium 1.7 mg/dL (1.9-2.7) L 07/02/17 05:20 Iron 21 07/03/17 05:48 TIBC 131 07/03/17 05:48 Iron Saturation 16 07/03/17 05:48 Unsaturated IBC 110 07/03/17 05:48 Ferritin 334 ng/mL (15-150) H 07/03/17 05:48 Total Bilirubin 0.5 mg/dL (0.3-1.0) 07/05/17 06:05 AST 16 U/L (13-39) 07/05/17 06:05 ALT 8 U/L (7-52) 07/05/17 06:05 Alkaline Phosphatase 66 U/L (34-104) 07/05/17 06:05 Troponin I 0.09 ng/mL (0.01-0.05) H* D 07/04/17 05:50 B-Natriuretic Peptide 215.0 pg/mL (5.0-100.0) H 07/01/17 14:10 Total Protein 5.6 gm/dL (6.0-8.3) L 07/05/17 06:05 Albumin 2.6 gm/dL (3.7-5.3) L 07/05/17 06:05 Globulin 3.0 gm/dL 07/05/17 06:05 Albumin/Globulin Ratio 0.9 (1.0-1.8) L 07/05/17 06:05 Triglycerides 107 mg/dL (<150) 07/04/17 05:50 Cholesterol 114 mg/dL (<200) 07/04/17 05:50 LDL Cholesterol Direct 59 mg/dL (75-193) L 07/04/17 05:50 HDL Cholesterol 31 mg/dL (23-92) 07/04/17 05:50 TSH 1.46 uIU/ml (0.34-5.60) 07/04/17 05:50 Urine Source CATH 07/05/17 18:30 Urine Color YELLOW 07/05/17 18:30 Urine Clarity CLOUDY (CLEAR) H 07/05/17 18:30 Urine pH 5.5 (4.6 - 8.0) 07/05/17 18:30 Ur Specific [place] 1.025 (1.005-1.030) 07/05/17 18:30 Urine Protein 30 mg/dL (NEGATIVE) H 07/05/17 18:30 Urine Glucose (UA) NEGATIVE mg/dL (NEGATIVE) 07/05/17 18:30 Urine Ketones TRACE mg/dL (NEGATIVE) 07/05/17 18:30 Urine Blood SMALL (NEGATIVE) H 07/05/17 18:30 Urine Nitrate NEGATIVE (NEGATIVE) 07/05/17 18:30 Urine Bilirubin NEGATIVE (NEGATIVE) 07/05/17 18:30 Urine Urobilinogen 0.2 E.U./dL (0.2 - 1.0) 07/05/17 18:30 Ur Leukocyte Esterase LARGE (NEGATIVE) H 07/05/17 18:30 Urine RBC 2-5 /hpf (0-5) 07/05/17 18:30 Urine WBC >100 /hpf (0-5) H 07/05/17 18:30 Ur Epithelial Cells FEW /lpf (FEW) 07/05/17 18:30 Urine Bacteria FEW /hpf (NONE SEEN) 07/05/17 18:30 Urine Yeast FEW /hpf (NONE SEEN) H 07/05/17 18:30 Stool Occult Blood POSITIVE (NEGATIVE) H 07/13/17 19:00 Vancomycin Trough 23.1 ug/mL (5-10) H 07/22/17 08:00 Random Vancomycin 23.8 ug/mL (5.0-40.0) 07/24/17 04:00 Blood Type B POSITIVE 07/27/17 10:10 Antibody Screen NEGATIVE 07/27/17 10:10 Crossmatch See Detail 07/27/17 10:10 - Physical Exam Vitals and I&O: Vital Signs Temp 98.7 F 07/28/17 04:00 Pulse 82 07/28/17 10:04 Resp 20 07/28/17 08:16 BP 159/68 07/28/17 10:05 Pulse Ox 100 07/28/17 08:16 Intake & Output 07/27/17 07/28/17 07/28/17 18:59 06:59 18:59 Intake Total 492.333 Balance 492.333 Intake: Intake, IV Amount 492.333 D5-0.45NS 1,000 ml @ 20 492.333 mls/hr IV .Q24H [facility] Rx#: [id number] Other: Stool Characteristics Soft Soft Active Medications: Current Medications Acetaminophen (Tylenol) 650 mg PO Q4H PRN PRN Reason: Fever > 101 Stop: 08/30/17 22:06 Last Admin: 07/23/17 10:17 Dose: 650 mg Albuterol/Ipratropium (Duoneb Neb) 3 ml HHN Q4HRT PRN PRN Reason: Wheezing Stop: 08/30/17 22:13 Last Admin: 07/22/17 18:56 Dose: 3 ml Albuterol/Ipratropium (Duoneb Neb) 3 ml HHN Q6HRT [facility] Stop: 08/31/17 00:59 Last Admin: 07/28/17 07:40 Dose: 3 ml Ascorbic Acid (Vitamin C) 500 mg PO DAILY [facility] Stop: 08/31/17 08:59 Last Admin: 07/28/17 09:59 Dose: 500 mg Baclofen (Lioresal) 5 mg PO TID [facility] Stop: 09/06/17 08:59 Last Admin: 07/28/17 09:59 Dose: 5 mg Bisacodyl (Dulcolax 10 Mg Supp) 10 mg RC DAILY PRN PRN Reason: BOWEL CARE MANAGEMENT Stop: 09/20/17 09:14 Budesonide (Pulmicort) 0.5 mg HHN BIDRT [facility] Stop: 08/31/17 18:59 Last Admin: 07/28/17 07:39 Dose: 0.5 mg Cyproheptadine HCl (Periactin) 4 mg PO BID [facility] Stop: 08/31/17 08:59 Last Admin: 07/28/17 10:06 Dose: 4 mg Docusate Sodium (Colace) 100 mg PO BID [facility] Stop: 08/31/17 08:59 Last Admin: 07/28/17 09:58 Dose: 100 mg Ferrous Sulfate (Iron) 325 mg PO BID [facility] Stop: 08/31/17 08:59 Last Admin: 07/28/17 09:58 Dose: 325 mg Folic Acid (Folate) 1 mg PO DAILY [facility] Stop: 08/31/17 08:59 Last Admin: 07/28/17 09:58 Dose: 1 mg Furosemide (Lasix) 20 mg IVP DAILY [facility] Stop: 09/16/17 11:59 Last Admin: 07/28/17 10:05 Dose: 20 mg Dextrose/Sodium Chloride (D5-0.45ns) 1,000 mls @ 20 mls/hr IV .Q24H [facility] Stop: 09/22/17 09:16 Last Infusion: 07/27/17 09:56 Dose: Infused Lactulose (Cephulac) 20 gm PO QID PRN PRN Reason: Constipation Stop: 08/30/17 22:18 Last Admin: 07/17/17 17:50 Dose: 20 gm Lorazepam (Ativan) 1 mg IVP Q4HR PRN; Protocol PRN Reason: Anxiety Stop: 09/04/17 08:31 Last Admin: 07/18/17 21:49 Dose: 1 mg Losartan Potassium (Cozaar) 50 mg PO DAILY [facility] Stop: 09/23/17 08:59 Last Admin: 07/28/17 10:04 Dose: 50 mg Methylprednisolone Sodium Succinate (Solu-Medrol) 40 mg IVP Q8HR [facility] Stop: 09/09/17 20:59 Last Admin: 07/28/17 05:47 Dose: 40 mg Miscellaneous (Probiotic Screen) 1 ea MC PRN PRN PRN Reason: PROTOCOL Stop: 09/01/17 08:44 Multivitamins/Vitamin C (Theragran) 1 tab PO DAILY [facility] Stop: 08/31/17 08:59 Last Admin: 07/28/17 10:05 Dose: 1 tab Nicotine (Nicotine Transdermal System) 14 mg TD DAILY [facility] Stop: 09/04/17 08:59 Last Admin: 07/28/17 09:59 Dose: 14 mg Pantoprazole Sodium (Protonix) 40 mg IVP BID [facility] Stop: 09/13/17 08:59 Last Admin: 07/28/17 10:04 Dose: 40 mg General: no acute distress, cachectic HEENT: atraumatic, normocephalic, PERRLA, EOMI Neck: supple, no thyromegaly Cardiovascular: S1S2, regular Lungs: clear to auscultation bilaterally, clear to percussion Abdomen: soft, no tender, no distended, no hepatomegaly Extremities: no cyanosis, no clubbing, no edema Neurological: awake, alert - Procedures Procedures: Procedures Procedure Code Date INSERT EMERGENCY AIRWAY 99583 07/01/17 INSERTION OF ENDOTRACHEAL AIRWAY INTO TRACHEA, VIA OPENING [id number] 07/01/17 RESPIRATORY VENTILATION, GREATER THAN 96 CONSECUTIVE HOURS [id number] 07/01/17 VENT MGMT INPAT INIT DAY [id number] 07/01/17 Infectious Disease Assmt/Plan - Problem List Patient Problems: All Active Problems WEAKESS AND POOR ORAL INTAKE (Acute) - Assessment Assessment: 1. Leukocytosis. worse, suspect reactive to CA, 2. Pneumonia. trated twice. 3. Stage IV lung CA. 4. Protein calorie malnutrion, 5. VDRF. 6. ALTERED MENTAL STATUS. - Plan Plan: off antibiotics, will monitor. Poor prognosis. Nutritional Asmnt/Malnutr-PDOC - Dietary Evaluation Malnutrition Findings (Please click <Entered> for more info): Nutritional Asmnt/Malnutrition Start: 07/03/17 13: 22 Text: Status: Complete Freq: Document 07/03/17 13:22 MMULJENN (Rec: 07/03/17 13:35 MMULJENN [facility]) Nutritional Asmnt/Malnutrition Patient General Information Nutritional Screening Consult Diagnosis UTI, Failure to thrive, hypokalemia Pertinent Medical Hx/Surgical Hx CAD, HTN, COPD, Stage 4 lung cancer, peripheral neuropathy, constipation, GERD, anxiety, low back pain Subjective Information Consult received for Failure to Thrive. Current Diet Order/ Nutrition Support Regular diet, pureed with mechaical soft Patient / S.O Not Indicated Pertinent Medications Vitamin C, dulcolax, D5-0.45 NS @ 75 ml/hr, colace, iron, folate, lactulose, theragran Pertinent Labs (07/02) P 1.5, Mg 1.7, albumin 2.9 Nutritional Hx/Data Height 1.6 m Height (Calculated Centimeters) 160.0 Current Weight (lbs) 54.885 kg Weight (Calculated Kilograms) 54.9 Weight (Calculated Grams) 45127.7 [place] Body Weight 115 % [place] Body Weight 105 Body Mass Index (BMI) 21.4 Recent Weight Change No Weight Status Approriate GI Symptoms GI Symptoms None Last BM Prior to admission Difficult in: None Food Allergies No Cultural/Ethnic/Restorationism Belief None indicated Skin Integrity/Comment: Pradeep 15 Current %PO Poor (25-49%) Estimated Nutritional Goals BEE in Kcals: Using Current wt Calories/Kcals/Kg 55kg CBW (25-30kcal/kg) Kcals Calculated 3279-6554 kcal/day Protein: Using Current wt Protein g/k-1.2 gm/kg Protein Calculated 55-65 gm/day Fluid: ml 1578-6414 ml/day (1 ml/kcal) Nutritional Problem 2. Problem Problem Inadequate oral intake related to Etiology poor appetite aeb Signs/Symptoms: meeting <75% of estimated nutrient needs 1. Problem Problem Altered nutrition related lab values related to Etiology electrolyte imbalance aeb Signs/Symptoms: P 1.5, Mg 1.7 Intervention/Recommendation Comments 1. Continue pureed diet as tolerated by patient. 2. RN To assist with feedings and encourage oral intake. 3. Consider adding Boost plus between meals to optimize calorie and protein intake. Expected Outcomes/Goals Expected Outcomes/Goals Oral intake to meet >75% of needs, weight stable, nutrition labs WNL F/U MR 07/06-
--- NOTE | 2017-07-28 14:07 | GI Progress Note ---
Subjective - Review of Systems Subjective: NO ACTIVE BLEEDING HAS NGT Objective - Results Result Diagrams: 07/28/17 06:10 07/28/17 06:10 Recent Labs: Laboratory Last Values WBC 20.0 Th/cmm (4.8-10.8) H 07/28/17 06:10 RBC 3.48 Mil/cmm (3.80-5.20) L 07/28/17 06:10 Hgb 10.3 gm/dL (12-16) L 07/28/17 06:10 Hct 30.7 % (41.0-60) L 07/28/17 06:10 MCV 88.3 fl (81-100) 07/28/17 06:10 MCH 29.6 pg (27.0-31.0) 07/28/17 06:10 MCHC Differential 33.5 pg (28.0-36.0) 07/28/17 06:10 RDW 16.9 % (11.5-20.0) 07/28/17 06:10 Plt Count 234 Th/cmm (150-400) 07/28/17 06:10 MPV 7.1 fl 07/28/17 06:10 Neutrophils % 93.8 % (40.0-80.0) H 07/27/17 06:00 Band Neutrophils % 1 % (0-10) 07/28/17 01:03 Lymphocytes % 3.2 % (20.0-50.0) L 07/27/17 06:00 Monocytes % 2.4 % (2.0-10.0) 07/27/17 06:00 Eosinophils % 0.2 % (0.0-5.0) 07/27/17 06:00 Basophils % 0.4 % (0.0-2.0) 07/27/17 06:00 Neutrophils (Manual) 90 % (40-80) H 07/28/17 06:10 Lymphocytes 5 % (20-50) L 07/28/17 06:10 Monocytes 5 % (2-10) 07/28/17 06:10 Eosinophils 0 % (0-5) 07/24/17 04:00 Basophils 0 % (0-3) 07/24/17 04:00 Hypochromia 1+ 07/21/17 04:30 Platelet Estimate ADEQUATE (NORMAL) 07/28/17 06:10 Platelet Morphology NORMAL (NORMAL) 07/16/17 04:35 Polychromasia 1+ 07/14/17 05:00 Ovalocytes 1+ 07/21/17 04:30 RBC Morph Micro Appear NORMAL (NORMAL) 07/16/17 04:35 Specimen Source Arterial 07/19/17 19:14 Sample Site RIGHT BRACHIAL 07/19/17 19:14 pH 7.44 (7.35-7.45) 07/19/17 19:14 pCO2 39.0 mmHg (35.0-45.0) 07/19/17 19:14 pO2 179.0 mmHg (80.0-100.0) H 07/19/17 19:14 HCO3 26.7 mEq/L (20.0-26.0) H 07/19/17 19:14 Base Excess 2.2 mEq/L (-3.0-3.0) 07/19/17 19:14 O2 Saturation 100.0 % (92.0-100.0) 07/19/17 19:14 Darius Test Positive 07/19/17 19:14 Vent Rate NA 07/18/17 10:48 Inspired O2 40 07/19/17 19:14 Tidal Volume NA 07/18/17 10:48 PEEP NA 07/18/17 10:48 Pressure (ins/psv/peep) NA 07/18/17 10:48 Critical Value SC 07/19/17 19:14 Sodium 138 mEq/L (136-145) 07/28/17 06:10 Potassium 4.1 mEq/L (3.5-5.1) 07/28/17 06:10 Chloride 100 mEq/L (98-107) 07/28/17 06:10 Carbon Dioxide 30.7 mEq/L (21.0-31.0) 07/28/17 06:10 Anion Gap 11.4 (7.0-16.0) 07/28/17 06:10 BUN 44 mg/dL (7-25) H 07/28/17 06:10 Creatinine 1.0 mg/dL (0.6-1.2) 07/28/17 06:10 Est GFR ( Amer) TNP 07/28/17 06:10 Est GFR (Non-Af Amer) TNP 07/28/17 06:10 BUN/Creatinine Ratio 44.0 07/28/17 06:10 Glucose 144 mg/dL (70-105) H 07/28/17 06:10 POC Glucose 177 MG/DL (70 - 105) H 07/14/17 11:26 Hemoglobin A1c % 5.2 % (4.0-6.0) 07/17/17 04:33 Whole Bld Lactic Acid 3.99 mmol/L (0.60-1.99) H* 07/05/17 13:00 Calcium 8.6 mg/dL (8.6-10.3) 07/28/17 06:10 Phosphorus 1.5 mg/dL (2.5-5.0) L 07/02/17 05:20 Magnesium 1.7 mg/dL (1.9-2.7) L 07/02/17 05:20 Iron 21 07/03/17 05:48 TIBC 131 07/03/17 05:48 Iron Saturation 16 07/03/17 05:48 Unsaturated IBC 110 07/03/17 05:48 Ferritin 334 ng/mL (15-150) H 07/03/17 05:48 Total Bilirubin 0.5 mg/dL (0.3-1.0) 07/05/17 06:05 AST 16 U/L (13-39) 07/05/17 06:05 ALT 8 U/L (7-52) 07/05/17 06:05 Alkaline Phosphatase 66 U/L (34-104) 07/05/17 06:05 Troponin I 0.09 ng/mL (0.01-0.05) H* D 07/04/17 05:50 B-Natriuretic Peptide 215.0 pg/mL (5.0-100.0) H 07/01/17 14:10 Total Protein 5.6 gm/dL (6.0-8.3) L 07/05/17 06:05 Albumin 2.6 gm/dL (3.7-5.3) L 07/05/17 06:05 Globulin 3.0 gm/dL 07/05/17 06:05 Albumin/Globulin Ratio 0.9 (1.0-1.8) L 07/05/17 06:05 Triglycerides 107 mg/dL (<150) 07/04/17 05:50 Cholesterol 114 mg/dL (<200) 07/04/17 05:50 LDL Cholesterol Direct 59 mg/dL (75-193) L 07/04/17 05:50 HDL Cholesterol 31 mg/dL (23-92) 07/04/17 05:50 TSH 1.46 uIU/ml (0.34-5.60) 07/04/17 05:50 Urine Source CATH 07/05/17 18:30 Urine Color YELLOW 07/05/17 18:30 Urine Clarity CLOUDY (CLEAR) H 07/05/17 18:30 Urine pH 5.5 (4.6 - 8.0) 07/05/17 18:30 Ur Specific [place] 1.025 (1.005-1.030) 07/05/17 18:30 Urine Protein 30 mg/dL (NEGATIVE) H 07/05/17 18:30 Urine Glucose (UA) NEGATIVE mg/dL (NEGATIVE) 07/05/17 18:30 Urine Ketones TRACE mg/dL (NEGATIVE) 07/05/17 18:30 Urine Blood SMALL (NEGATIVE) H 07/05/17 18:30 Urine Nitrate NEGATIVE (NEGATIVE) 07/05/17 18:30 Urine Bilirubin NEGATIVE (NEGATIVE) 07/05/17 18:30 Urine Urobilinogen 0.2 E.U./dL (0.2 - 1.0) 07/05/17 18:30 Ur Leukocyte Esterase LARGE (NEGATIVE) H 07/05/17 18:30 Urine RBC 2-5 /hpf (0-5) 07/05/17 18:30 Urine WBC >100 /hpf (0-5) H 07/05/17 18:30 Ur Epithelial Cells FEW /lpf (FEW) 07/05/17 18:30 Urine Bacteria FEW /hpf (NONE SEEN) 07/05/17 18:30 Urine Yeast FEW /hpf (NONE SEEN) H 07/05/17 18:30 Stool Occult Blood POSITIVE (NEGATIVE) H 07/13/17 19:00 Vancomycin Trough 23.1 ug/mL (5-10) H 07/22/17 08:00 Random Vancomycin 23.8 ug/mL (5.0-40.0) 07/24/17 04:00 Blood Type B POSITIVE 07/27/17 10:10 Antibody Screen NEGATIVE 07/27/17 10:10 Crossmatch See Detail 07/27/17 10:10 - Physical Exam Vitals and I&O: Vital Signs Temp 98.7 F 07/28/17 04:00 Pulse 84 07/28/17 13:57 Resp 18 07/28/17 13:57 BP 123/68 07/28/17 12:39 Pulse Ox 97 07/28/17 13:57 Intake & Output 07/27/17 07/28/17 07/28/17 18:59 06:59 18:59 Intake Total 492.333 Balance 492.333 Intake: Intake, IV Amount 492.333 D5-0.45NS 1,000 ml @ 20 492.333 mls/hr IV .Q24H [facility] Rx#: [id number] Other: Stool Characteristics Soft Soft Soft Active Medications: Current Medications Acetaminophen (Tylenol) 650 mg PO Q4H PRN PRN Reason: Fever > 101 Stop: 08/30/17 22:06 Last Admin: 07/23/17 10:17 Dose: 650 mg Albuterol/Ipratropium (Duoneb Neb) 3 ml HHN Q4HRT PRN PRN Reason: Wheezing Stop: 08/30/17 22:13 Last Admin: 07/22/17 18:56 Dose: 3 ml Albuterol/Ipratropium (Duoneb Neb) 3 ml HHN Q6HRT [facility] Stop: 08/31/17 00:59 Last Admin: 07/28/17 13:55 Dose: 3 ml Ascorbic Acid (Vitamin C) 500 mg PO DAILY [facility] Stop: 08/31/17 08:59 Last Admin: 07/28/17 09:59 Dose: 500 mg Baclofen (Lioresal) 5 mg PO TID [facility] Stop: 09/06/17 08:59 Last Admin: 07/28/17 09:59 Dose: 5 mg Bisacodyl (Dulcolax 10 Mg Supp) 10 mg RC DAILY PRN PRN Reason: BOWEL CARE MANAGEMENT Stop: 09/20/17 09:14 Budesonide (Pulmicort) 0.5 mg HHN BIDRT [facility] Stop: 08/31/17 18:59 Last Admin: 07/28/17 07:39 Dose: 0.5 mg Cyproheptadine HCl (Periactin) 4 mg PO BID [facility] Stop: 08/31/17 08:59 Last Admin: 07/28/17 10:06 Dose: 4 mg Docusate Sodium (Colace) 100 mg PO BID [facility] Stop: 08/31/17 08:59 Last Admin: 07/28/17 09:58 Dose: 100 mg Ferrous Sulfate (Iron) 325 mg PO BID [facility] Stop: 08/31/17 08:59 Last Admin: 07/28/17 09:58 Dose: 325 mg Folic Acid (Folate) 1 mg PO DAILY [facility] Stop: 08/31/17 08:59 Last Admin: 07/28/17 09:58 Dose: 1 mg Furosemide (Lasix) 20 mg IVP DAILY [facility] Stop: 09/16/17 11:59 Last Admin: 07/28/17 10:05 Dose: 20 mg Dextrose/Sodium Chloride (D5-0.45ns) 1,000 mls @ 20 mls/hr IV .Q24H [facility] Stop: 09/22/17 09:16 Last Infusion: 07/27/17 09:56 Dose: Infused Lactulose (Cephulac) 20 gm PO QID PRN PRN Reason: Constipation Stop: 08/30/17 22:18 Last Admin: 07/17/17 17:50 Dose: 20 gm Lorazepam (Ativan) 1 mg IVP Q4HR PRN; Protocol PRN Reason: Anxiety Stop: 09/04/17 08:31 Last Admin: 07/18/17 21:49 Dose: 1 mg Losartan Potassium (Cozaar) 50 mg PO DAILY [facility] Stop: 09/23/17 08:59 Last Admin: 07/28/17 10:04 Dose: 50 mg Methylprednisolone Sodium Succinate (Solu-Medrol) 20 mg IVP Q12HR [facility] Stop: 09/26/17 20:59 Miscellaneous (Probiotic Screen) 1 ea MC PRN PRN PRN Reason: PROTOCOL Stop: 09/01/17 08:44 Multivitamins/Vitamin C (Theragran) 1 tab PO DAILY [facility] Stop: 08/31/17 08:59 Last Admin: 07/28/17 10:05 Dose: 1 tab Nicotine (Nicotine Transdermal System) 14 mg TD DAILY [facility] Stop: 09/04/17 08:59 Last Admin: 07/28/17 09:59 Dose: 14 mg Pantoprazole Sodium (Protonix) 40 mg IVP BID [facility] Stop: 09/13/17 08:59 Last Admin: 07/28/17 10:04 Dose: 40 mg General: Mild distress, Other (NGT FEEDING) HEENT: Atraumatic, Other Neck: Supple, no JVD, no Thyromegaly Cardiovascular: Regular rate, Normal S1, Normal S2, Other (in A fib) Lungs: Other Abdomen: Bowel sounds, Soft, no Tender, no Hepatomegaly Extremities: no Clubbing Neurological: Other (Pt unable to participate in test) Skin: no Rash Psych/Mental Status: Other (no psychosis) - Procedures Procedures: Procedures Procedure Code Date INSERT EMERGENCY AIRWAY 66070 07/01/17 INSERTION OF ENDOTRACHEAL AIRWAY INTO [place]HE[place], VIA OPENING [id number] 07/01/17 RESPIRATORY VENTILATION, GREATER THAN 96 CONSECUTIVE HOURS [id number] 07/01/17 VENT MGMT INPAT INIT DAY 64934 07/01/17 Assessment/Plan - Problem List Patient Problems: All Active Problems WEAKESS AND POOR ORAL INTAKE (Acute) - Assessment Assessment: 87 YO FEMALE WITH LUNG CA ANEMIA WITH OB + STOOL NO ACTIVE BLEEDING FAMILY DOES NOT WANT PEG 1.FOLLOW H/H; TRANSFUSE PRN 2.CONT PROTONIX 3.CONSIDER ENDOSCOPIC WORK UP IF ACTIVE BLEED OR SIG DROP IN HGB; OTHERWISE CONSERVATIVE MANAGEMENT
[2017-07-28] MEDS ORDERED: methylPREDNISolone SS 40 mg Vial IVP SCH (21:00)
--- NOTE | 2017-07-29 11:08 | Discharge Summary ---
DATE OF DISCHARGE: 07/29/2017 Date of transferred to [facility] 07/28/2017. CAUSE OF ADMISSION: The patient is an 87-year-old lethargic and confused female. He has history of stage IV lung cancer and chronic respiratory failure. She presents from [facility]. She had poor appetite and dehydration. She is being followed by Dr. Familia Landry over there. The patient was also followed at [facility], [place] for chemotherapy for stage IV lung cancer. She became gradually weak and lost weight. Oncology stated that she was unable to withstand therapy. She was considered hospice appropriate and she was placed [place] [facility]; however, the son, Phillip refused to place his mother on hospice and he decided to continue care at the assisted facility, but all the physicians had recommended hospice. Dr. Escamilla had spoken with the son on several occasions regarding the poor prognosis. The patient's son still wanted to continue all treatment. Ultimately, she was transferred to [facility] for severe lethargy and dehydration and overall decline. ADMITTING DIAGNOSES: 1. Metabolic encephalopathy. 2. Urinary tract infection. 3. Stage IV lung cancer. 4. Chronic respiratory failure. 5. Hypertension. 6. Generalized anxiety disorder. 7. Chronic pain syndrome. 8. Muscle weakness. 9. Unsteady gait. 10. Anemia of chronic illness. DISCHARGE DIAGNOSES: 1. Septic shock. 2. Atrial fibrillation with rapid ventricular response. 3. Failure to thrive. 4. Stage IV lung cancer. 5. Sepsis due to Escherichia coli urinary tract infection. 6. Metabolic encephalopathy. 7. Chronic pain syndrome. 8. Anemia of chronic illness. 9. Hypernatremia. 10. Hypokalemia. 11. Type 2 myocardial infarction. 12. Atrial fibrillation. SUMMARY OF HOSPITAL COURSE: The patient's son and I had several conversations over the phone regarding the poor prognosis. The patient was followed by Cardiology, Pulmonary, and Heme/Onc, all of whom agreed with comfort care/hospice. The son decided to "do everything." She was on Zosyn and vancomycin. She was on amiodarone and Levophed drip and in the ICU at one point which the drips were turned off on 07/06/2017. She was also intubated on 07/05/2017 and extubated night of 07/19/2017. Electrolytes were corrected. She continued to be very weak. The weaning was attempted on 07/10/2017, but she cannot tolerate it. She was ultimately extubated on 07/19/2017. Hemoglobin was dropping. Xarelto was held. Stool OB was checked, which was positive. GI was consulted, but they determined the patient to be too unstable for any procedures. Again, the son was advised about the poor prognosis and he said he wanted to transfer the patient to higher level of care. We explained to him that she still holds a poor prognosis. Ultimately, the son decided to take her to [facility]. We did to swallow eval, she fell to both of them. She is put on NG-tube feedings. PROGNOSIS: Poor. DISPOSITION: She was transferred to [facility]. PROCEDURES: Intubation and extubation. CONSULTS: Dr. Scott Jensen for ID, Dr. Caio Alejandra for GI, Dr. Montanez for heme/onc and Dr. Awad for Pulmonary. JOB# [id number]
== END 2017-07-28 22:22 | DRG 870 ==
LOC: ER 13:04 → MSI 18:50 → TELE 22:00 → ICU 07-05 05:06 → TELE 07-26 06:55
PROVIDERS: ADMIT Family Medicine; ATTEND Family Medicine
PROC: 5A1955Z Respiratory Ventilation, Greater than 96 Consecutive Hours (ICD-10-PCS; principal; 2017-07-05)
PROC: 0BH17EZ Insertion of Endotracheal Airway into Trachea, Via Natural or Artificial Opening (ICD-10-PCS; 2017-07-05)
PROC: 30233N1 Transfusion of Nonautologous Red Blood Cells into Peripheral Vein, Percutaneous Approach (ICD-10-PCS; 2017-07-27)
DX: A41.51 Sepsis due to Escherichia coli [E. coli] (principal); J69.0 Pneumonitis due to inhalation of food and vomit; G93.41 Metabolic encephalopathy; R65.21 Severe sepsis with septic shock; I21.A1 Myocardial infarction type 2; N39.0 Urinary tract infection, site not specified; C34.90 Malignant neoplasm of unspecified part of unspecified bronchus or lung; J96.10 Chronic respiratory failure, unspecified whether with hypoxia or hypercapnia; R64 Cachexia; J44.1 Chronic obstructive pulmonary disease with (acute) exacerbation; I69.354 Hemiplegia and hemiparesis following cerebral infarction affecting left non-dominant side; C79.9 Secondary malignant neoplasm of unspecified site; E87.0 Hyperosmolality and hypernatremia; J44.0 Chronic obstructive pulmonary disease with (acute) lower respiratory infection; E46 Unspecified protein-calorie malnutrition; Z99.11 Dependence on respirator [ventilator] status; I10 Essential (primary) hypertension; G89.4 Chronic pain syndrome; E86.0 Dehydration; R62.7 Adult failure to thrive; J20.9 Acute bronchitis, unspecified; E87.6 Hypokalemia; I48.91 Unspecified atrial fibrillation; E78.5 Hyperlipidemia, unspecified; M19.90 Unspecified osteoarthritis, unspecified site; I25.10 Atherosclerotic heart disease of native coronary artery without angina pectoris; G62.9 Polyneuropathy, unspecified; K21.9 Gastro-esophageal reflux disease without esophagitis; F41.1 Generalized anxiety disorder; D63.8 Anemia in other chronic diseases classified elsewhere; F17.210 Nicotine dependence, cigarettes, uncomplicated; B96.20 Unspecified Escherichia coli [E. coli] as the cause of diseases classified elsewhere; Z74.01 Bed confinement status; Z51.5 Encounter for palliative care; Z68.26 Body mass index [BMI] 26.0-26.9, adult; Z88.2 Allergy status to sulfonamides; Z86.718 Personal history of other venous thrombosis and embolism
CPT/HCPCS: 36415-UA; 36600-90; 70450-TC; 71045-TC; 80048-TC; 80053-TC; 80061-TC; 80202-TC; 81001-TC; 82270-TC; 82728-90; 82803-TC; 82948-90; 83036-90; 83540-90; 83550-90; 83605; 83735-TC; 83880-TC; 84100-TC; 84443-TC; 84484-TC; 85007-TC; 85025-TC; 85027-TC; 86850-TC; 86900-TC; 86901-TC; 86922-TC; 87086-90; 90779; 93005; 94002; 94003; 94640; 94760; C9113; J0282; J0330; J1160; J1940; J1956; J2060; J2250; J2543; J2920; J3370; J3480; J7030; J7042; P9016; X3401; X6452; Z7610